=== PATIENT | female | born 1960 | race African-American/Black ===

== ENCOUNTER 2016-08-26 19:07 | Emergency (ER) | payer OTHER ==
[2016-08-26 19:17] VITALS: BMI 47.0
--- NOTE | 2016-08-26 19:33 | PDOC ---
History of Present Illness - History of Present Illness Initial Comments: 08/26/16 20:34 The patient is a 56 year old female with a past medical hx of HTN, asthma, COPD , sleep apnea who presents to the ED via EMS complaining of chronic bilateral leg pain and weakness. The patient reports she is unable to walk or move her legs. The patient states she has satellite anesthesia. She states she has been using a diaper for the past three weeks because she is unable to make it to the bathroom. The patient had an MRI here one week ago due to her leg pain and weakness. She has been staying in a detention but was discharged back home yesterday. The patient was given Percocet to take home. She presents stating she cannot live at home with these symptoms and believes she needs to be somewhere where she can have assistance. She has an appointment with her Neurologist, Dr. Davila, on Sunday. She reports back pain. She denies nausea, vomiting diarrhea, chest pain, SOB. Surgical hx: Cholecystectomy, hysterectomy, (two), left shoulder surgery Neurologist: Dr. Davila <Jacqueline Martinez - Last Filed: 08/26/16 22:04> - General History Source: Patient Exam Limitations: No Limitations <Lashon Mora - Last Filed: 08/30/16 07:30> - General Chief Complaint: Pain, Acute Stated Complaint: PAIN TO BACK & LEGS Time Seen by Provider: 08/26/16 19:14 Past History <Jacqueline Martinez - Last Filed: 08/26/16 22:04> - Past Medical History Anemia: No Asthma: Yes Cancer: No Cardiac Disorders: No CVA: No COPD: Yes CHF: No Dementia: No Diabetes: Yes GI Disorders: Yes (GERD) Disorders: No HTN: Yes Hypercholesterolemia: Yes Liver Disease: No Seizures: No Thyroid Disease: No - Surgical History Abdominal Surgery: No Appendectomy: No Cardiac Surgery: No Cholecystectomy: Yes Lung Surgery: No Neurologic Surgery: No Orthopedic Surgery: Yes (; left ankle surgery 2004 with johnny) - Psycho/Social/Smoking Cessation Hx Suicidal Ideation: No Smoking Status: Yes Smoking History: Current every day smoker Have you smoked in the past 12 months: Yes Number of Cigarettes Smoked Daily: 8 If you are a former smoker, when did you quit?: 6 months Information on smoking cessation initiated: No 'Breaking Loose' booklet given: 10/14/15 Hx Alcohol Use: No Drug/Substance Use Hx: No Substance Use Type: Alcohol, Cocaine, Marijuana Hx Substance Use Treatment: Yes (new focus, detox many years ago) <Lashon Mora - Last Filed: 08/30/16 07:30> - Past Medical History Allergies/Adverse Reactions: Allergies Allergy/AdvReac Type Severity Reaction Status Date / Time No Known Allergies Allergy Verified 08/26/16 19:13 Home Medications: Ambulatory Orders Albuterol Sulfate Inhaler - [Ventolin HFA Inhaler -] 2 inh PO Q4H PRN 01/12/14 Aripiprazole [Abilify -] 10 mg PO DAILY 01/12/14 Lamotrigine [Lamictal -] 200 mg PO DAILY 01/12/14 Montelukast Na [Singulair -] 10 mg PO HS 01/12/14 Omeprazole [Prilosec] 20 mg PO DAILY 01/12/14 Gabapentin [Neurontin] 800 mg PO QID 10/14/15 Lisinopril 10 mg PO DAILY 03/13/16 Oxycodone HCl/Acetaminophen [Percocet 10-325 mg Tablet] 1 each PO TID PRN #90 tablet MDD 3 08/09/16 Melatonin 3 mg PO HS 08/26/16 Morphine *Sr* [Ms Contin -] 15 mg PO Q12H 08/26/16 Salmeterol/Fluticasone [Advair 250Mcg/50Mcg] 1 inh PO BID 08/26/16 Review of Systems - Review of Systems Able to Perform ROS?: Yes Comments:: 08/26/16 20:34 GENERAL/CONSTITUTIONAL: No: fever, chills, loss of appetite. HEAD, EYES, EARS, NOSE AND THROAT: No: change in vision, ear pain, discharge, sore throat, throat swelling. CARDIOVASCULAR: No: chest pain, lightheadedness, palpitations, syncope RESPIRATORY: No: cough, shortness of breath, wheezing, hemoptysis, stridor. GASTROINTESTINAL: No: nausea, vomiting, abdominal cramping, diarrhea, rectal bleeding, constipation. GENITOURINARY: No: dysuria, hematuria, frequency, urgency, flank pain. MUSCULOSKELETAL: +Bilateral lower extremity weakness and pain. No: neck pain SKIN: No: lesions, pallor, rash or easy bruising. NEUROLOGIC: No: headache, vertigo, paresthesias, weakness ENDOCRINE: No: unexplained weight gain or loss HEMATOLOGIC/LYMPHATIC: No: anemia, easy bleeding, swelling nodes <Jacqueline Martinez - Last Filed: 08/26/16 22:04> *Physical Exam - Vital Signs Last Vital Signs Temp Pulse Resp BP Pulse Ox 99.0 F 72 20 129/61 96 08/26/16 19:11 08/26/16 19:11 08/26/16 19:11 08/26/16 19:11 08/26/16 19:11 - Physical Exam Comments: 08/26/16 20:35 GENERAL: +Morbidly obese. The patient is in no acute distress. HEAD: Normal with no signs of trauma. EYES: PERRLA, EOMI, sclera anicteric, conjunctiva clear. ENT: Ears normal, nares patent, oropharynx clear without exudates. Moist mucous membranes. NECK: Normal range of motion, supple without lymphadenopathy, JVD, or masses. LUNGS: Breath sounds equal, clear to auscultation bilaterally. No wheezes, and no crackles. HEART:Regular rate and rhythm, normal S1 and S2 without murmur, rub or gallop. ABDOMEN: +Obese. Soft, nontender, normoactive bowel sounds. No guarding, no rebound. EXTREMITIES:+Bilateral lower extremity weakness, motor strength bilateral ankles 1/5 , hips 2/5 . Sensation intact. No clubbing or cyanosis. No erythema. NEUROLOGICAL: Cranial nerves II through XII grossly intact. Sensation intact. Normal speech. MUSCULOSKELETAL: Back nontender to palpation, no CVA tenderness SKIN: Warm, Dry, normal turgor, no rashes or lesions noted. <Jacqueline Martinez - Last Filed: 08/26/16 22:04> - Vital Signs Last Vital Signs Temp Pulse Resp BP Pulse Ox 99.0 F 72 20 129/61 96 08/26/16 19:11 08/26/16 19:11 08/26/16 19:11 08/26/16 19:11 08/26/16 19:11 <Lashon Mora - Last Filed: 08/30/16 07:30> ED Treatment Course - LABORATORY CBC & Chemistry Diagram: 08/26/16 20:12 08/26/16 20:12 - RADIOLOGY Radiograph Interpretation: 08/26/16 22:04 EXAM DATE AND TIME: 2016-08-26 21:07:08.0 EXAM: VENOUS DUPLEX UNILATERAL No evidence for DVT bilateral lower extremities. THIS DOCUMENT HAS BEEN ELECTRONICALLY SIGNED Beata Hairston M.D. 08/26/2016 21:56 DEBRA Oliveros Please call [facility] [phone]) with questions. <Jacqueline Martinez - Last Filed: 08/26/16 22:04> - LABORATORY CBC & Chemistry Diagram: 08/26/16 20:12 08/26/16 20:12 <Lashon Mora - Last Filed: 08/30/16 07:30> Medical Decision Making - Medical Decision Making This is a 56 yo F presenting to the ER because she can not be cared for at home any longer She states that several months ago, she noted bilateral finger tingling She noted progressive and worsening back pain She was seen at an OSH where she was admitted to the hospital and then sent to the detention Pt states she has been in the detention for 3 weeks she has been unable to ambulate on examination: bilateral leg weakness weak dorsi and plantar flexion Pt can hold legs up against gravity for several seconds unable to hold right leg up against gravity hyporeflexic sensation intact MRI done 1 week ago demonstrates Myelomalacia of the spine, pt has spinal cord compression Laboratory Tests 08/26/16 08/26/16 20:12 20:12 WBC 9.2 D Hgb 12.1 Hct 35.2 Plt Count 287 Neutrophils % 53.6 Lymphocytes % 36.9 Sodium 139 Potassium 4.5 Chloride 104 Carbon Dioxide 26 BUN 12 D Creatinine 0.7 Random Glucose 124 H D AST 16 ALT 56 D Alkaline Phosphatase 141 H D B-Natriuretic Peptide 77.13 Total Protein 6.1 L Albumin 3.0 L 08/26/16 23:12 Case reviewed with Orthopedic Resident Pt accepted by Dr. Sloan Nicole Pt can be transferred to the ER for STAT MRI Case reviewed with Dr. Urias of the ER <Lashon Mora - Last Filed: 08/30/16 07:30> *DC/Admit/Observation/Transfer - Attestations Scribe Attestion: 08/26/16 20:34 Documentation prepared by Jacqueline Martinez, acting as medical delivery technician for Lashon Mora MD/DO. <Jacqueline Martinez - Last Filed: 08/26/16 22:04> - Discharge Dispostion Admit: No - Transfer to Acute Care Facility Receiving Facility: [facility] Accepting Physician:: Dr. Sloan Nicole (neurosurgery), Dr Urias (ER) <Lashon Mora - Last Filed: 08/30/16 07:30> Diagnosis at time of Disposition: Myelomalacia - Discharge Dispostion Disposition: TRANSFER ACUTE CARE/OTHER HOSP Condition at time of disposition: Stable - Referrals Referrals: Lizy Guardado MD [Primary Care Provider] -
[2016-08-26] MEDS ORDERED: HYDROmorphone HCL CARPU-JECT 1 MG/1 ML DISP.SYRIN IVPB ONE (19:49)
[2016-08-26 20:24] LABS: EOSINOPHIL 1.3 % (0-4.5); MCH 33.3 pg (25.7-33.7); MCHC 34.3 g/dl (32.0-36.0); MEAN CELL VOLUME 97.2 fl (80-96); MEAN PLT VOLUME 7.2 fl (7.5-11.1); NEUTROPHILS 53.6 % (42.8-82.8); PLATELET COUNT 287 K/MM3 (134-434); RDW 14.3 % (11.6-15.6); WHITE BLOOD COUNT 9.2 K/mm3 (4.0-10.0)
[2016-08-26] MEDS ORDERED: HYDROmorphone HCL CARPU-JECT 1 MG/1 ML DISP.SYRIN ONE (20:29)
[2016-08-26 20:47] LABS: ALK PHOS 141 U/L (45-117); ANION GAP 9 (8-16); BILIRUBIN,TOTAL 0.2 mg/dL (0.2-1.0); CALCIUM 8.5 mg/dL (8.5-10.1); CO2 26 mmol/L (21-32); COCKROFT - GAULT 197.3615; CREATININE 0.7 mg/dL (0.55-1.02); GLUCOSE,RANDOM 124 mg/dL (74-106); SGOT/AST 16 U/L (15-37); SGPT/ALT 56 U/L (12-78); TOT PROT 6.1 g/dl (6.4-8.2)
[2016-08-27 03:28] VITALS: BP 128/76; PULSE 95; TEMP 97.1
== END 2016-08-27 01:30 | disposition short-term general hospital (02) ==
LOC: JER 19:07
PROC: 3E033NZ Introduction of Analgesics, Hypnotics, Sedatives into Peripheral Vein, Percutaneous Approach (ICD-10-PCS; principal; 2016-08-26)
DX: G95.89 Other specified diseases of spinal cord (principal); I10 Essential (primary) hypertension; J44.9 Chronic obstructive pulmonary disease, unspecified; J45.909 Unspecified asthma, uncomplicated; E66.01 Morbid (severe) obesity due to excess calories; Z68.42 Body mass index [BMI] 45.0-49.9, adult
CPT/HCPCS: 36415; 80053; 83880; 85025; 93970-TC; 96374; 99284-25

== ENCOUNTER 2016-11-02 22:19 | Emergency (ER) | payer OTHER ==
[2016-11-02 22:44] VITALS: BP 154/88; PULSE 72; TEMP 98.3; BMI 59.4
--- NOTE | 2016-11-03 00:13 | PDOC ---
History of Present Illness - General Chief Complaint: Edema Stated Complaint: LEG PAIN Time Seen by Provider: 11/02/16 23:18 History Source: Patient - History of Present Illness Initial Comments: 11/03/16 01:37 Past History - Past Medical History Allergies/Adverse Reactions: Allergies Allergy/AdvReac Type Severity Reaction Status Date / Time No Known Allergies Allergy Verified 08/26/16 19:13 Home Medications: Ambulatory Orders Albuterol Sulfate Inhaler - [Ventolin HFA Inhaler -] 2 inh PO Q4H PRN 01/12/14 Aripiprazole [Abilify -] 10 mg PO DAILY 01/12/14 Lamotrigine [Lamictal -] 200 mg PO DAILY 01/12/14 Montelukast Na [Singulair -] 10 mg PO HS 01/12/14 Omeprazole [Prilosec] 20 mg PO DAILY 01/12/14 Gabapentin [Neurontin] 800 mg PO QID 10/14/15 Lisinopril 10 mg PO DAILY 03/13/16 Salmeterol/Fluticasone [Advair 250Mcg/50Mcg] 1 inh PO BID 08/26/16 Zolpidem Tartrate [Ambien] 10 mg PO HS 10/04/16 Oxycodone HCl/Acetaminophen [Endocet 7.5-325 mg Tablet] 1 each PO QID PRN #110 tablet MDD 4 11/01/16 Anemia: No Asthma: Yes Cancer: No Cardiac Disorders: No CVA: No COPD: Yes CHF: No Dementia: No Diabetes: Yes GI Disorders: Yes (GERD) Disorders: No HTN: Yes Hypercholesterolemia: Yes Liver Disease: No Seizures: No Thyroid Disease: No - Surgical History Abdominal Surgery: No Appendectomy: No Cardiac Surgery: No Cholecystectomy: Yes Lung Surgery: No Neurologic Surgery: No Orthopedic Surgery: Yes (; left ankle surgery 2004 with johnny) - Immunization History Immunization Up to Date: No - Psycho/Social/Smoking Cessation Hx Anxiety: No Suicidal Ideation: No Smoking Status: Yes Smoking History: Current every day smoker Have you smoked in the past 12 months: Yes Number of Cigarettes Smoked Daily: 24 If you are a former smoker, when did you quit?: 6 months Information on smoking cessation initiated: No 'Breaking Loose' booklet given: 10/14/15 Hx Alcohol Use: No Drug/Substance Use Hx: No Substance Use Type: Alcohol, Cocaine, Marijuana Hx Substance Use Treatment: Yes (new focus, detox many years ago) *Physical Exam - Vital Signs Last Vital Signs Temp Pulse Resp BP Pulse Ox 98.3 F 72 18 154/88 95 11/02/16 22:41 11/02/16 22:41 11/02/16 22:41 11/02/16 22:41 11/02/16 22:41 ED Treatment Course - RADIOLOGY Radiology Studies Ordered: Category Date Time Status DUPLEX VASCUL US-2LEGS [US] Stat Ultrasound 11/03/16 00:12 Ordered *DC/Admit/Observation/Transfer Diagnosis at time of Disposition: eloped - Discharge Dispostion Disposition: ELOPED - Referrals Referrals: Lizy Guardado MD [Primary Care Provider] -
== END 2016-11-03 00:19 | disposition left against medical advice (07) ==
LOC: JER 22:19
DX: Z53.21 Procedure and treatment not carried out due to patient leaving prior to being seen by health care provider (principal)
CPT/HCPCS: 99281-25

== ENCOUNTER 2017-08-02 07:02 | Day surgery (SDC) | payer OTHER ==
[2017-08-01 15:52] VITALS: BMI 58.1
[2017-08-02] MEDS ORDERED: PROPOFOL 20 ML ONE ×2 (08:06)
[2017-08-02] MEDS ORDERED: LIDOCAINE HCL/PF 2% SDV 5ML VIAL ONE (08:06)
[2017-08-02] MEDS ORDERED: GLYCOPYRROLATE 0.2 MG/1 ML VIAL ONE (08:07)
[2017-08-02 08:52] VITALS: TEMP 98.4
[2017-08-02 09:32] VITALS: BP 133/82; PULSE 75
== END 2017-08-02 09:33 | disposition home or self-care (01) ==
LOC: JASU-ENDO 07:02
PROVIDERS: ATTEND Surgery
PROC: 0DJ08ZZ Inspection of Upper Intestinal Tract, Via Natural or Artificial Opening Endoscopic (ICD-10-PCS; principal; 2017-08-02 09:00)
DX: E66.8 Other obesity (principal); Z98.84 Bariatric surgery status; I10 Essential (primary) hypertension; K21.9 Gastro-esophageal reflux disease without esophagitis; G47.30 Sleep apnea, unspecified; E11.9 Type 2 diabetes mellitus without complications

== ENCOUNTER 2019-01-27 06:34 | Day surgery (SDC) | payer OTHER ==
[2019-01-16 11:29] VITALS: BMI 62.1
[2019-01-27] MEDS ORDERED: ALBUTEROL SO4 8 GM HFA INHALER IH PRN (07:41)
[2019-01-27] MEDS ORDERED: PATIENT'S OWN MEDICATION (NON-FORMULARY) (Salmeterol/Fluticasone [Advair 250mcg/50mcg -] 1 PO PRN (07:41)
[2019-01-27] MEDS ORDERED: ALBUTEROL SO4 0.083% IH SOL 2.5 MG/3 ML VIAL.NEB. NEB PRN (07:41)
[2019-01-27] MEDS ORDERED: MONTELUKAST NA 10 MG TABLET PO SCH (22:00)
[2019-01-28] MEDS ORDERED: PATIENT'S OWN MEDICATION (NON-FORMULARY) (Salmeterol/Fluticasone [Advair 250mcg/50mcg -] 1 PO PRN (08:13)
== END 2019-01-27 08:43 | disposition home or self-care (01) ==
LOC: FASUSAT 06:34 → UNDOADMIN 06:34 → FM/S 06:34 → FASUSAT 08:43 → EDSTATUS 10:00
PROVIDERS: ATTEND Surgery
PROC: 0DV64CZ Restriction of Stomach with Extraluminal Device, Percutaneous Endoscopic Approach (ICD-10-PCS; principal; 2019-01-27)
DX: Z53.8 Procedure and treatment not carried out for other reasons (principal); E66.01 Morbid (severe) obesity due to excess calories; Z68.44 Body mass index [BMI] 60.0-69.9, adult

== ENCOUNTER 2019-05-19 14:16 | Emergency (ER) | payer OTHER ==
[2019-05-19 15:06] VITALS: TEMP 98.3; BMI 62.8
--- NOTE | 2019-05-19 15:50 | PDOC ---
History of Present Illness - General Chief Complaint: Pain Stated Complaint: PAIN AND SWELLING Time Seen by Provider: 05/19/19 15:36 History Source: Patient Exam Limitations: No Limitations - History of Present Illness Initial Comments: 05/19/19 15:46 59 yo F with a hx of COPD, functional paraplegia (needs wheelchair for ambulation), chronic back pain on management, bipolar disorder, schizophrenia, sleep apnea (on CPAP-inconsistent use), HTN, HLD, DM, lymphedema, morbid obesity , and degenerative arthritis presents to the emergency department with worsening bilateral LE edema and right hip pain for 1 day. Per the patient, she denies traumatic falls. She was recently seen by her card scraper (unknown reason) and had a recent Duplex 05/19/19 17:00 Past History - Past Medical History Allergies/Adverse Reactions: Allergies Allergy/AdvReac Type Severity Reaction Status Date / Time No Known Allergies Allergy Verified 05/19/19 15:06 Home Medications: Ambulatory Orders Albuterol Sulfate Inhaler - [Ventolin HFA Inhaler -] 2 inh PO Q4H PRN 01/12/14 Lamotrigine [Lamictal -] 200 mg PO DAILY 01/12/14 Montelukast Na [Singulair -] 10 mg PO HS 01/12/14 Salmeterol/Fluticasone [Advair 250Mcg/50Mcg -] 1 inh PO PRN PRN 08/26/16 Albuterol 0.083% Nebulizer Raven [Ventolin 0.083% Nebulizer Soln -] 1 neb NEB Q4H PRN #1 box 07/09/17 hydrOXYzine PAMOATE [Vistaril -] 50 mg PO HS 07/09/17 Aripiprazole [Abilify -] 20 mg PO DAILY 09/14/17 Omeprazole 20 mg PO DAILY 12/12/17 Bacitracin - [Bacitracin Topical Ointment -] 1 applic TP BID #1 tube 01/07/19 Calcium Carbonate/Vitamin D3 [Calcium 600 + D3 Softgel] 1 each PO DAILY #30 capsule 01/07/19 Vitamin B Complex [B Complex] 1 each PO DAILY #30 tablet 01/07/19 Vitamin E - 400 unit PO DAILY #30 capsule 01/07/19 Diclofenac Sodium [Voltaren] 2 gm TP TID PRN #3 tube 02/07/19 Ergocalciferol (Vitamin D2) [Vitamin D2] 50,000 unit PO MOFR #8 capsule Gabapentin 800 mg PO TID 02/07/19 Baclofen 20 mg PO BID PRN #60 tablet 03/10/19 Ferrous Sulfate 325 mg PO DAILY #30 tablet 05/09/19 Oxycodone HCl/Acetaminophen [Endocet 10-325 mg Tablet] 1 each PO TID PRN #90 tablet MDD 3 05/09/19 Furosemide 40 mg PO DAILY #14 tablet 05/19/19 Anemia: No Asthma: Yes Cancer: No Cardiac Disorders: No CVA: No COPD: Yes CHF: No Dementia: No Diabetes: Yes (BORDERLINE) GI Disorders: Yes (GERD) Disorders: No HTN: Yes Hypercholesterolemia: Yes Liver Disease: No Seizures: No Thyroid Disease: No - Surgical History Abdominal Surgery: No Appendectomy: No Cardiac Surgery: No Cholecystectomy: Yes Lung Surgery: No Neurologic Surgery: No Orthopedic Surgery: Yes (; left ankle surgery 2004 with johnny; left shoulder 2015 ) - Immunization History Immunization Up to Date: No - Psycho Social/Smoking Cessation Hx Smoking Status: Yes Smoking History: Current every day smoker Have you smoked in the past 12 months: Yes Number of Cigarettes Smoked Daily: 20 If you are a former smoker, when did you quit?: 6 months Information on smoking cessation initiated: No 'Breaking Loose' booklet given: 08/02/17 Hx Alcohol Use: No Drug/Substance Use Hx: Yes (Marijuana daily) Substance Use Type: Alcohol, Cocaine, Marijuana Hx Substance Use Treatment: Yes (new focus, detox many years ago) *Physical Exam - Vital Signs Last Vital Signs Temp Pulse Resp BP Pulse Ox 98.3 F 75 16 136/78 98 05/19/19 15:03 05/19/19 15:03 05/19/19 15:03 05/19/19 15:03 05/19/19 15:03 ED Treatment Course - LABORATORY CBC & Chemistry Diagram: 05/19/19 16:15 05/19/19 16:15 Discharge - Discharge Information Problems reviewed: Yes Clinical Impression/Diagnosis: Functional quadriplegia, Lymphedema Disposition: HOME - Admission No - Additional Discharge Information Prescriptions: Furosemide 40 mg PO DAILY #14 tablet - Follow up/Referral Referrals: Edy Sanford MD [Non Staff, Medical] - - Patient Discharge Instructions Patient Printed Discharge Instructions: DI for Lymphedema Additional Instructions: You were seen in the emergency department for your increased swelling of the legs. It was determined that you need diuresis, which means to remove water from your legs. Please take the medications as prescribed. You need to follow up with Dr. Sanford within 3 days after discharge for follow up care and management. Please return to the emergency department if you have worsening symptoms or new concerning symptoms such as weakness, worsening mentation, palpitations. Please see your primary medical doctor, it is VITAL. Print Language: ICELANDIC - Post Discharge Activity
[2019-05-19] MEDS ORDERED: morphine SULFATE 4 MG/ML VIAL IVPUSH ONE (16:17)
[2019-05-19] MEDS ORDERED: morphine SULFATE 4 MG/ML VIAL ONE (16:30)
[2019-05-19 16:39] LABS: BASO % 0.9 % (0-2.0); EOS % 2.4 % (0-4.5); HEMATOCRIT 41.3 % (32.4-45.2); HEMOGLOBIN 13.8 GM/dL (10.7-15.3); LYMPH % 42.1 % (8-40); MCHC 33.4 g/dl (32.0-36.0); MEAN PLT VOLUME 8.1 fl (7.5-11.1); MONO % 6.5 % (3.8-10.2); NEUT % 48.1 % (42.8-82.8); PLATELET COUNT 359 K/MM3 (134-434); RBC 4.17 M/mm3 (3.60-5.2); WHITE BLOOD COUNT 5.7 K/mm3 (4.0-10.0)
[2019-05-19 17:05] LABS: INR 1.08 (0.83-1.09); PROTHROMBIN TIME (PATIENT) 12.7 SEC (9.7-13.0)
[2019-05-19 17:06] LABS: ALBUMIN 3.5 g/dl (3.4-5.0); BILIRUBIN,TOTAL 0.2 mg/dL (0.2-1); BLOOD UREA NITROGEN 7.6 mg/dL (7-18); CALCIUM 9.4 mg/dL (8.5-10.1); CREATININE 0.6 mg/dL (0.55-1.3); POTASSIUM 4.1 mmol/L (3.5-5.1); TOT PROT 7.4 g/dl (6.4-8.2)
--- NOTE | 2019-05-19 17:18 | PDOC ---
Documentation entered by Joe Rocha SCRIBE, acting as scribe for Jorge Luis Liu MD. Jorge Luis Liu MD: This documentation has been prepared by the Aj salazar Xhesika, SCRIBE, under my direction and personally reviewed by me in its entirety. I confirm that the documentation accurately reflects all work, treatment, procedures, and medical decision making performed by me. Attending Attestation - Resident Resident Name: Brent Olmedo - ED Attending Attestation I have performed the following: I have examined & evaluated the patient, The case was reviewed & discussed with the resident, I agree w/resident's findings & plan, Exceptions are as noted - HPI HPI: 05/19/19 16:32 The patient is a year old female with a PMH of COPD, functional paraplegia ( needs wheelchair for ambulation), chronic back pain, bipolar disorder, schizophrenia, sleep apnea (on CPAP-inconsistent use), HTN, HLD, DM, lymphedema , morbid obesity, and degenerative arthritis who presents to the ED for 1 year of bilateral LE edema. Pt states she saw her PCP last week who told her she needed to come to the ED for further evaluation. Pt denies being on water pills. Pt states she is bed bound and can not ambulate. The patient denies chest pain, shortness of breath, and dizziness. Denies fever , chills, cough, nausea, vomiting, and constipation. Denies dysuria, frequency, urgency and hematuria. Allergy: NKDA Social: Denies alcohol, cigarette or drug use. - Physicial Exam PE: 05/19/19 16:32 Vitals: Triage Vital signs reviewed General Appearance: no acute distress, +obese Chest Wall: Nontender Cardiac: Regular rate and rhythm, no murmurs, no rubs, no gallops, Lungs: Clear to auscultation bilateral, good air movement bilaterally, Abdomen: Soft. +swollen abdomen. Extremities: (+) 3+ pitting edema bilaterally of ankles, legs and thighs. Skin: Warm and dry, no rashes or lesions, no petechiae Psych: normal mood, normal affect - Medical Decision Making 05/19/19 17:19 Morbid obesity with worsening lymphedema worsening hip pain unable to transfer Patient require admission for aggressive diuresis with careful electrolyte monitoring Case management and physical therapy consultation for reassessment of home situation and possible placement given unsafe care at home
[2019-05-19 21:24] VITALS: BP 155/90; PULSE 79
--- NOTE | 2019-05-20 12:41 | EKG ---
Test Reason : Blood Pressure : / mmHG Vent. Rate : 069 BPM Atrial Rate : 069 BPM P-R Int : 154 ms QRS Dur : 078 ms QT Int : 380 ms P-R-T Axes : 041 031 030 degrees QTc Int : 407 ms SINUS RHYTHM WITH MARKED SINUS ARRHYTHMIA LOW VOLTAGE QRS SEPTAL INFARCT , AGE UNDETERMINED ABNORMAL ECG Confirmed by MD SHAJI, RICHMOND ([id number]) on 05/20/2019 12:40:48 PM Referred By: Confirmed By:RICHMOND GIRARD MD
== END 2019-05-19 21:24 | disposition home or self-care (01) ==
LOC: SUPCPDRO 14:16 → JER 14:16
PROC: 3E033NZ Introduction of Analgesics, Hypnotics, Sedatives into Peripheral Vein, Percutaneous Approach (ICD-10-PCS; principal; 2019-05-19)
DX: I89.0 Lymphedema, not elsewhere classified (principal); R53.2 Functional quadriplegia; Z99.3 Dependence on wheelchair; I10 Essential (primary) hypertension; E11.9 Type 2 diabetes mellitus without complications; E78.5 Hyperlipidemia, unspecified; J44.9 Chronic obstructive pulmonary disease, unspecified; G47.39 Other sleep apnea; F31.9 Bipolar disorder, unspecified; F20.9 Schizophrenia, unspecified; M54.89 Other dorsalgia; G89.29 Other chronic pain; M19.90 Unspecified osteoarthritis, unspecified site; E66.01 Morbid (severe) obesity due to excess calories; Z68.44 Body mass index [BMI] 60.0-69.9, adult
CPT/HCPCS: 36415; 71045-TC-FY; 80053; 82550; 82553; 83880; 84484; 84703; 85025; 85610; 93005; 93010; 93970-TC; 96374; 99283-25

== ENCOUNTER 2020-02-10 19:47 | Inpatient (IN) | payer OTHER ==
--- OUTSIDE RECORDS SUMMARY | 2020-02-10 20:30 | XMS ---
:1960 Author Organization [facility] Care Team Providers Name Role Phone NISHI STOCKTON Unavailable Unavailable Mark Unavailable [phone] SANDRA MARTINEZ Unavailable Unavailable ED STAFF PHYSICIAN Unavailable Unavailable BYRON AVERY Unavailable Unavailable DANIEL AKINO Unavailable Unavailable HHCCC Unavailable Unavailable AurMayank goodman DPM Unavailable Unavailable AurMayank goodman DPM Unavailable Unavailable AurSyd goodmanen DPM Unavailable Unavailable Byron MD Unavailable Unavailable Byron MD Unavailable Unavailable Rosalba-Pickett Unavailable [phone] Rosalba-Pickett Unavailable [phone] Garretovic Unavailable [phone] Sandra Unavailable [phone] Re-disclosure Warning The records that you are about to access may contain information from federally- assisted alcohol or drug abuse programs. If such information is present, then the following federally mandated warning applies: This information has been disclosed to you from records protected by federal confidentiality rules (42 CFR part 2). The federal rules prohibit you from making any further disclosure of this information unless further disclosure is expressly permitted by the written consent of the person to whom it pertains or as otherwise permitted by 42 CFR part 2. A general authorization for the release of medical or other information is NOT sufficient for this purpose. The Federal rules restrict any use of the information to criminally investigate or prosecute any alcohol or drug abuse patient.The records that you are about to access may contain highly sensitive health information, the redisclosure of which is protected by Article 27-F of the [facility] Public Health law. If you continue you may haveaccess to information: Regarding HIV / AIDS; Provided by facilities licensed or operated by the [facility] Office of Mental Health; or Provided by the [facility] Office for People With Developmental Disabilities. If such information is present, then the following [facility] mandated warning applies: This information has been disclosed to you from confidential records which are protected by state law. State law prohibits you from making any further disclosure of this information without the specific written consent of the person to whom it pertains, or as otherwise permitted by law. Any unauthorized further disclosure in violation of state law may result in a fine or halfway sentence or both. A general authorization for the release of medical or other information is NOT sufficient authorization for further disclosure. Allergies and Adverse Reactions Type Description Substance Reaction Status Data Source(s ) Food allergy No Known Food No Known Food [facility] Drug allergy No Known Drug No Known Drug [facility] No Known Allergies No Known Allergies No Known Allergies eCW3 ([facility]) No Known Allergies No Known Allergies No Known Allergies eCW3 ([facility]) No Known Allergies No Known Allergies No Known Allergies eCW3 ([facility]) No Known Allergies No Known Allergies No Known Allergies eCW3 ([facility]) No Known Allergies No Known Allergies No Known Allergies eCW3 ([facility]) Propensity to Propensity to Propensity to NEXTG EN ([facility] adverse reactions adverse reactions adverse reactions [facility] (disorder) (disorder) (disorder) [place]) No Known Allergies No Known Allergies No Known Allergies eCW3 ([facility]) No Known Allergies No Known Allergies No Known Allergies eCW3 ([facility]) No Known Allergies No Known Allergies No Known Allergies eCW3 ([facility]) No Known Allergies No Known Allergies No Known Allergies eCW3 ([facility]) No Known Allergies No Known Allergies No Known Allergies eCW3 ([facility]) No Known Allergies No Known Allergies No Known Allergies eCW3 ([facility]) No Known Allergies No Known Allergies No Known Allergies eCW3 ([facility]) No Known Allergies No Known Allergies No Known Allergies eCW3 ([facility]) No Known Allergies No Known Allergies No Known Allergies eCW3 ([facility]) No Known Allergies No Known Allergies No Known Allergies eCW3 ([facility]) No Known Allergies No Known Allergies No Known Allergies eCW3 ([facility]) No Known Allergies No Known Allergies No Known Allergies eCW3 ([facility]) No Known Allergies No Known Allergies No Known Allergies eCW3 ([facility]) No Known Allergies No Known Allergies No Known Allergies eCW3 ([facility]) No Known Allergies No Known Allergies No Known Allergies eCW3 ([facility]) No Known Allergies No Known Allergies No Known Allergies eCW3 ([facility]) No Known Allergies No Known Allergies No Known Allergies eCW3 ([facility]) No Known Allergies No Known Allergies No Known Allergies eCW3 ([facility]) No Information No Information No Information eC W2 ([facility]) No Information No Information No Information eC W2 ([facility]) No Information No Information No Information eC W2 ([facility]) No Information No Information No Information eC W2 ([facility]) No Known Allergies No Known Allergies No Known Allergies eCW3 ([facility]) No Known Allergies No Known Allergies No known allergies eCW3 ([facility]) No Known Allergies No Known Allergies No known allergies eCW3 ([facility]) Encounters Encounter Providers Location Date Indications Data Source(s ) Outpatient Attender: HR9 02/09/[address] [facility] ([facility] 05:03:23 PM Health [facility] EDT [facility]) Patient admitted. OutpatientOFFICE/OUTPATIENT Attender: Michelle Mental 12/17/2019 NEXTGEN VISIT, [facility] 10:18:00 AM ([facility] 12/17/2019 Medical 10:18:00 AM [place]) EDT Outpatient Attender: HRHC9 12/06/2019 [facility] 12:20:08 PM [facility] Patient admitted. OutpatientOFFICE/OUTPATIENT Attender: Mental 11/20/2019 NEXTGEN VISIT, [facility] 12:13:00 PM ([facility] 11/20/2019 Medical 12:13:00 PM Center) EDT Attender: Michelle Mental 09/10/2019 [facility] 12:46:00 PM ([facility] 09/10/2019 Medical 12:46:00 PM Center) EDT Attender: Michelle Mental 08/01/2019 [facility] 11:03:00 AM ([facility] 08/01/2019 Medical 11:03:00 AM Center) EDT Outpatient 07/31/2019 [facility] 12:57:00 PM [facility] Outpatient Attender: Junior Kaufman 07/31/2019 [facility] 12:[facility]00 PM [facility] DPMAdmitter: [facility] DPMReferrer: Junior Spaulding DPM OutpatientOFFICE/OUTPATIENT Attender: [facility] 07/31/2019 [facility] VISIT, [facility] 12:54:00 PM ([facility] 07/31/2019 Medical 12:54:00 PM Center) EDT Outpatient 07/31/2019 [facility] 12:00:00 AM [facility] Outpatient Attender: HRHC9 07/25/[address] [facility] 06:47:49 AM ([facility]) Patient admitted. OutpatientOFFICE/OUTPATIENT Attender: Mental 06/04/2019 [facility] VISIT, [facility] 01:56:00 PM ([facility] 06/04/2019 Medical 01:56:00 PM Center) EST Outpatient Attender: 05/08/2019 [facility] MICHELLE 07:54:00 AM [facility] MICKIEAAdmitter: [place] MICHELLE SANDRA MICHELLE Attender: Mental 05/08/2019 [facility] 07:54:00 AM ([facility] 05/08/2019 Medical 07:54:00 AM Center) EST 05/08/2019 [facility] 12:00:00 AM [facility] Medical 02/12/2019 [place] 12:00:00 AM EDT OutpatientOFFICE/OUTPATIENT Attender: Mental 03/24/2019 NEXTGEN VISIT, EST [facility] 01:41:00 PM ([facility] 03/24/2019 Medical 01:41:00 PM Center) EST (NBillable) [place] 03/18/2019 eCW3 Lab/Outreach/Nursing/Care Primary 12:00:00 AM ([facility] EST - [place] [facility]28 03/18/2019 Health 12:00:00 AM Care) EST Emergency Attender: SHEA EVANGELISTA 03/14/2019 [facility] 02:47:00 PM Patria Ocampoender: EST - Medical STAFF ED STAFF 03/15/2019 Center PHYSICIANAdmitt 01:23:00 PM er: STAFF ED EST STAFF PHYSICIAN Patient discharged. Outpatient [facility] 03/10/2019 eCW3 ([facility] 12:00:[address] [facility] 03/10/2019 Care) 12:00:00 AM EST (NBillable) [facility] 03/10/2019 eCW3 ([facility]reach/[facility]ursi [facility] A28 12:00:00 AM [facility] - [facility] ng/Care Management 03/10/2019 Care) 12:00:00 AM EST (NBillable) [facility] 02/20/2019 eCW3 ([facility] A28 12:00:00 AM EDT - [facility]/Care Management 02/20/2019 Care) 12:00:00 AM EDT Attender: [facility] 02/17/2019 NEXTG EN ([facility] 03:36:00 PM EDT [facility] 02/17/2019 Medical 03:36:00 PM EDT Center) Inpatient Attender: MAHIN EVANGELISTA 02/11/2019 [facility] ALMODOVAR 01:04:00 PM EDT - Medical Center ROBERTAdmitter: 02/12/2019 MAHIN ALMODOVAR 02:30:00 AM EDT ROBERTReferrer: MAHIN STOCKTON Patient discharged. (NBillable) [facility] 02/10/2019 eCW3 ([facility]Nursing[facility] 12:00:00 AM [facility] EDT - Care) 02/10/2019 12:00:00 AM EDT (NBillable) [facility] 01/27/2019 eCW3 ([facility]Nursing[facility] 12:00:00 AM [facility] EDT - Care) 01/27/2019 12:00:00 AM EDT OutpatientOFFICE/OUTPATIENT Attender: Mental Health 01/20/2019 NEXTGEN VISIT, DEBRA Matthews [facility] Clinic 10:12:00 AM ([facility] 01/20/2019 Medical 10:12:00 AM Center) EDT (NBillable) [facility] 01/14/2019 eCW3 ([facility]Nurs[facility] 12:00:00 AM [facility] EDT - Care) 01/14/2019 12:00:00 AM EDT Outpatient [facility] 12/26/2018 eCW3 ([facility] 12:00:00 AM [facility]T - Care) 12/26/2018 12:00:00 AM EDT (NBillable) [facility] 12/24/2018 eCW3 ([facility] 12:00:00 AM [facility] EDT - Care) 12/24/2018 12:00:00 AM EDT (NBillable) [facility] 12/19/2018 eCW3 ([facility]Nursing[facility] 12:00:00 AM [facility] EDT - Care) 12/19/2018 12:00:00 AM EDT Established-Intermediate [facility] 12/05/2018 eCW3 ([facility] 12:00:00 AM [facility] EDT - Care) 12/05/2018 12:00:00 AM EDT OutpatientOFFICE/OUTPATIENT Attender: Mental Health 12/03/2018 NEXTGEN VISIT, DEBRA [facility] 09:34:00 AM ([facility] 12/03/2018 Medical 09:34:00 AM Center) EDT Outpatient [facility] 11/18/2018 eCW3 ([facility] 12:00:00 AM [facility]T - Care) 11/18/2018 12:00:00 AM EDT (NBillable) [facility] 11/15/2018 eCW3 ([facility] 12:00:00 AM [facility] EDT - Care) 11/15/2018 12:00:00 AM EDT Outpatient [facility] 10/24/2018 eCW3 ([facility] 12:00:00 AM [facility] EDT - Care) 10/24/2018 12:00:00 AM EDT OutpatientOFFICE/OUTPATIENT Attender: Mental Health 10/23/2018 NEXTGEN VISIT, EST [facility] 10:59:00 AM ([facility] 10/23/2018 Medical 10:59:00 AM Center) EDT Attender: Mental Health 10/11/2018 [facility] 10:43:00 AM ([facility] 10/11/2018 Medical 10:43:00 AM Center) EDT (NBillable) [facility] 10/07/2018 eCW3 ([facility] son Lab/Outreach/Nursing/Care [facility] A[facility] 12:00:00 AM [facility] EDT - Care) 10/07/2018 12:00:00 AM EDT Subsequent Individual Medical [facility] 09/24/2018 eCW3 ([facility] 12:00:00 AM [facility] EDT - Care) 09/24/2018 12:00:00 AM EDT Outpatient [facility] 09/23/2018 eCW3 ([facility] 12:00:00 AM [facility] EDT - Care) 09/23/2018 12:00:00 AM EDT Subsequent Individual [facility] 08/27/2018 eCW3 ([facility] 12:00:00 AM [facility] EDT - Care) 08/27/2018 12:00:00 AM EDT Outpatient [facility] 08/26/2018 eCW3 ([facility] A28 12:00:00 AM [facility] EDT - Care) 08/26/2018 12:00:00 AM EDT OutpatientOFFICE/OUTPATIENT Attender: Mental Health 08/16/2018 NEXTGEN VISIT, EST [facility] 09:58:00 AM ([facility] 08/16/2018 Medical 09:58:00 AM Center) EDT (NBillable) [facility] 08/09/2018 eCW3 ([facility] son Lab/Outreach/Nursing/Care [facility] A[facility] 12:00:00 AM [facility] EDT - Care) 08/09/2018 12:00:00 AM EDT Outpatient [facility] 08/01/2018 eCW3 ([facility] 12:00:00 AM [facility] EDT - Care) 08/01/2018 12:00:00 AM EDT Outpatient 07/30/2018 [facility] 12:27:09 PM ([facility] Health [facility]) Medical Nutrition Therapy; [facility] 07/30/2018 eCW3 ([place] [facility] 12:00:00 AM [facility] EDT - Care) 07/30/2018 12:00:00 AM EDT Outpatient 07/26/2018 [facility] 08:04:00 AM ([facility]) (NBillable) [facility] 07/16/2018 eCW3 ([facility]Nurs[facility] 12:00:00 AM [facility] EDT - Care) 07/16/2018 12:00:00 AM EDT Outpatient [facility] 07/04/2018 eCW3 ([facility] 12:00:00 AM [facility] EST - Care) 07/04/2018 12:00:00 AM EST (NBillable) [facility] 07/01/2018 eCW3 ([facility]Nursing[facility] 12:00:00 AM [facility] EST - Care) 07/01/2018 12:00:00 AM EST OutpatientOFFICE/OUTPATIENT Attender: Mental Health 06/21/2018 NEXTGEN MARIAH, EST [facility] 01:17:00 PM ([facility] 06/21/2018 Medical 01:17:00 PM Center) EST Outpatient Attender: H 06/21/2018 [facility] AVERY MATTHEWS 10:05:00 AM Patria Rojasender: EST Medical [facility] SANDRA YUSUFdmitter : AVERY VARELA (EDENillable) [facility] 06/14/2018 eCW3 ([facility] 12:00:00 AM [facility] EST - Care) 06/14/2018 12:00:00 AM EST OutpatientOFFICE/OUTPATIENT Attender: Mental Health 04/19/2018 NEXTGEN VISIT, EST [facility] 09:33:00 AM ([facility] 04/19/2018 Medical 09:33:00 AM Center) EST [facility] 04/04/2018 eCW2 ([place] [facility] 12:00:00 AM [facility] EST Care) [facility] 04/04/2018 eCW2 ([place] [facility] 12:00:00 AM [facility] EST Care) [facility] 03/21/2018 eCW2 ([place] [facility] 12:00:00 AM [facility]) [facility] 03/21/2018 eCW2 ([place] [facility] 12:00:00 AM [facility] EST Care) [facility] 03/20/2018 eCW2 ([place] [facility] 12:00:00 AM [facility] EST Care) [facility] 03/14/2018 eCW2 ([place] [facility] 12:00:00 AM [facility] EST Care) [facility] 03/11/2018 eCW2 ([place] [facility] 12:00:00 AM [facility] EST Care) [facility] 03/04/2018 eCW2 ([place] [facility] 12:00:00 AM [facility] ED[facility] Care) [facility] 02/21/2018 eCW2 ([place] [facility] 12:00:00 AM [facility] EDT Care) [facility] 02/21/2018 eCW2 ([place] [facility] 12:00:00 AM [facility] EDT Care) [facility] 02/15/2018 eCW2 ([place] [facility] 12:00:00 AM [facility] EDT Care) [facility] 02/15/2018 eCW2 ([place] [facility] 12:00:00 AM [facility] ED[facility] Care) [facility] 02/06/2018 eCW2 ([place] [facility] 12:00:00 AM [facility] EDT Care) [facility] 02/06/2018 eCW2 ([place] [facility] 12:00:00 AM [facility] EDT Care) [facility] 02/06/2018 eCW2 ([place] [facility] 12:00:00 AM [facility] EDT Care) [facility] 02/04/2018 eCW2 ([place] [facility] 12:00:00 AM [facility] EDT Care) [facility] 01/31/2018 eCW2 ([place] [facility] 12:00:00 AM [facility] EDT Care) [facility] 01/31/2018 eCW2 ([place] [facility] 12:00:00 AM [facility] EDT Care) [facility] 01/15/2018 eCW2 ([place] [facility] 12:00:00 AM [facility] EDT Care) [facility] 01/08/2018 eCW2 ([place] [facility] 12:00:00 AM [facility] EDT Care) [facility] 12/13/2017 eCW2 ([place] [facility] 12:00:00 AM [facility] EDT Care) [facility] 12/13/2017 eCW2 ([place] [facility] 12:00:00 AM [facility] EDT Care) [facility] 12/06/2017 eCW2 ([place] [facility] 12:00:00 AM [facility] EDT Care) [facility] 12/03/2017 eCW2 ([place] [facility] 12:00:00 AM [facility] EDT Care) [facility] 11/28/2017 eCW2 ([place] [facility] 12:00:00 AM [facility] EDT Care) [facility] 11/23/2017 eCW2 ([place] [facility] 12:00:00 AM [facility] EDT Care) [facility] 11/16/2017 eCW2 ([place] [facility] 12:00:00 AM [facility] EDT Care) [facility] 10/31/2017 eCW2 ([place] [facility] 12:00:00 AM [facility] EDT Care) [facility] 10/08/2017 eCW2 ([place] [facility] 12:00:00 AM [facility] EDT Care) [facility] 10/04/2017 eCW2 ([place] [facility] 12:00:00 AM [facility] EDT Care) [facility] 10/03/2017 eCW2 ([place] [facility] 12:00:00 AM [facility] EDT Care) [facility] 10/02/2017 eCW2 ([place] [facility] 12:00:00 AM [facility] EDT Care) [facility] 09/17/2017 eCW2 ([place] [facility] 12:00:00 AM [facility] EDT Care) [facility] 09/11/2017 eCW2 ([place] [facility] 12:00:00 AM [facility] EDT Care) [facility] 08/24/2017 eCW2 ([place] [facility] 12:00:00 AM [facility] EDT Care) [facility] 08/24/2017 eCW2 ([place] [facility] 12:00:00 AM [facility] EDT Care) [facility] 08/10/2017 eCW2 ([place] [facility] 12:00:00 AM [facility] EDT Care) [facility] 08/09/2017 eCW2 ([place] [facility] 12:00:00 AM [facility] EDT Care) [facility] 08/08/2017 eCW2 ([place] [facility] 12:00:00 AM [facility] EDT Care) [facility] 08/02/2017 eCW2 ([place] [facility] 12:00:00 AM [facility] EDT Care) [facility] 08/02/2017 eCW2 ([place] [facility] 12:00:00 AM [facility] EDT Care) [facility] 07/27/2017 eCW2 ([place] [facility] 12:00:00 AM [facility] EDT Care) [facility] 07/23/2017 eCW2 ([place] [facility] 12:00:00 AM [facility] EDT Care) [facility] 07/20/2017 eCW2 ([place] [facility] 12:00:00 AM [facility] EDT Care) [facility] 07/10/2017 eCW2 ([place] [facility] 12:00:00 AM [facility] EST Care) [facility] 07/10/2017 eCW2 ([place] [facility] 12:00:00 AM [facility] EST Care) [facility] 07/10/2017 eCW2 ([place] [facility] 12:00:00 AM [facility] EST Care) [facility] 07/09/2017 eCW2 ([place] [facility] 12:00:00 AM [facility] EST Care) [facility] 07/09/2017 eCW2 ([place] [facility] 12:00:00 AM [facility] EST Care) [facility] 07/05/2017 eCW2 ([place] [facility] 12:00:00 AM [facility] Care[facility] 07/05/2017 eCW2 ([place] [facility] 12:00:00 AM [facility] EST Care) [facility] 07/02/2017 eCW2 ([place] [facility] 12:00:00 AM [facility] EST Care) [facility] 06/26/2017 eCW2 ([place] [facility] 12:00:00 AM [facility] EST Care) [facility] 06/04/2017 eCW2 ([place] [facility] 12:00:00 AM [facility] EST Care) [facility] 06/01/2017 eCW2 ([facility] [facility] 12:00:00 AM [facility] EST Care) [facility] 05/28/2017 eCW2 ([place] [facility] 12:00:00 AM [facility] EST Care) [facility] 05/22/2017 eCW2 ([place] [facility] 12:00:00 AM [facility] EST Care) [facility] 05/15/2017 eCW2 ([place] [facility] 12:00:00 AM [facility] EST Care) [facility] 05/15/2017 eCW2 ([place] [facility] 12:00:00 AM [facility] EST Care) [facility] 05/01/2017 eCW2 ([place] [facility] 12:00:00 AM [facility] EST Care) [facility] 04/23/2017 eCW2 ([place] [facility] 12:00:00 AM [facility] EST Care) [facility] 04/18/2017 eCW2 ([place] [facility] 12:00:00 AM [facility] EST Care) [facility] 04/18/2017 eCW2 ([place] [facility] 12:00:00 AM [facility] EST Care) [facility] 04/17/2017 eCW2 ([place] [facility] 12:00:00 AM [facility] EST Care) [facility] 04/04/2017 eCW2 ([place] [facility] 12:00:00 AM [facility] EST Care) [facility] 04/02/2017 eCW2 ([place] [facility] 12:00:00 AM [facility] EST Care) [facility] 03/28/2017 eCW2 ([place] [facility] 12:00:00 AM [facility] EST Care) [facility] 03/27/2017 eCW2 ([place] [facility] 12:00:00 AM [facility] EST Care) [facility] 03/21/2017 eCW2 ([place] [facility] 12:00:00 AM [facility] EST Care) [facility] 03/15/2017 eCW2 ([place] [facility] 12:00:00 AM [facility] EST Care) [facility] 03/14/2017 eCW2 ([place] [facility] 12:00:00 AM [facility] EST Care) [facility] 02/23/2017 eCW2 (Tejada Shellabarger 12:00:00 AM [facility] EDT Care) [facility] 02/23/2017 eCW2 (Tejada Shellabarger 12:00:00 AM [facility] EDT Care) [facility] 02/23/2017 eCW2 (Tejada Shellabarger 12:00:00 AM [facility] EDT Care) [facility] 02/02/2017 eCW2 (Tejada Shellabarger 12:00:00 AM [facility] EDT Care) [facility] 01/23/2017 eCW2 (Tejada Shellabarger 12:00:00 AM [facility] EDT Care) [facility] 01/19/2017 eCW2 (Tejada Shellabarger 12:00:00 AM [facility] EDT Care) [facility] 01/15/2017 eCW2 (Tejada Shellabarger 12:00:00 AM [facility] EDT Care) [facility] 01/09/2017 eCW2 (Tejada Shellabarger 12:00:00 AM [facility] EDT Care) [facility] 12/20/2016 eCW2 (Tejada Shellabarger 12:00:00 AM [facility] EDT Care) [facility] 12/19/2016 eCW2 (Tejada Shellabarger 12:00:00 AM [facility] EDT Care) [facility] 12/11/2016 eCW2 (Tejada Shellabarger 12:00:00 AM [facility] EDT Care) [facility] 12/11/2016 eCW2 (Tejada Shellabarger 12:00:00 AM [facility] EDT Care) [facility] 12/07/2016 eCW2 (Tejada Shellabarger 12:00:00 AM [facility] EDT Care) [facility] 11/30/2016 eCW2 (Tejada Shellabarger 12:00:00 AM [facility] EDT Care) [facility] 11/29/2016 eCW2 (Tejada Shellabarger 12:00:00 AM [facility] EDT Care) [facility] 11/29/2016 eCW2 (Tejada Shellabarger 12:00:00 AM [facility] EDT Care) [facility] 11/29/2016 eCW2 (Tejada Shellabarger 12:00:00 AM [facility] EDT Care) [facility] 11/24/2016 eCW2 (Tejada Shellabarger 12:00:00 AM [facility] EDT Care) [facility] 11/22/2016 eCW2 (Tejada Shellabarger 12:00:00 AM [facility] EDT Care) [facility] 11/22/2016 eCW2 (Tejada Shellabarger 12:00:00 AM [facility] EDT Care) [facility] 11/22/2016 eCW2 (Tejada Shellabarger 12:00:00 AM [facility] EDT Care) [facility] 11/10/2016 eCW2 (Tejada Shellabarger 12:00:00 AM [facility] EDT Care) [facility] 10/31/2016 eCW2 (Tejada Shellabarger 12:00:00 AM [facility] EDT Care) [facility] 10/26/2016 eCW2 (Tejada Shellabarger 12:00:00 AM [facility] EDT Care) [facility] 10/25/2016 eCW2 (Tejada Shellabarger 12:00:00 AM [facility] EDT Care) [facility] 10/11/2016 eCW2 (Tejada Shellabarger 12:00:00 AM [facility] EDT Care) [facility] 10/04/2016 eCW2 (Tejada Shellabarger 12:00:00 AM [facility] EDT Care) [facility] 10/04/2016 eCW2 (Tejada Shellabarger 12:00:00 AM [facility] EDT Care) [facility] 09/29/2016 eCW2 (Tejada Shellabarger 12:00:00 AM [facility] EDT Care) [facility] 09/22/2016 eCW2 (Tejada Shellabarger 12:00:00 AM [facility] EDT Care) [facility] 09/05/2016 eCW2 (Tejada Shellabarger 12:00:00 AM [facility] EDT Care) [facility] 09/04/2016 eCW2 (Tejada Shellabarger 12:00:00 AM [facility] EDT Care) [facility] 08/28/2016 eCW2 (Tejada Shellabarger 12:00:00 AM [facility] EDT Care) [facility] 08/28/2016 eCW2 (Tejada Shellabarger 12:00:00 AM [facility] EDT Care) [facility] 08/15/2016 eCW2 (Tejada Shellabarger 12:00:00 AM [facility] EDT Care) [facility] 08/07/2016 eCW2 (Tejada Shellabarger 12:00:00 AM [facility] EDT Care) [facility] 08/04/2016 eCW2 (Tejada Shellabarger 12:00:00 AM [facility] EDT Care) [facility] 08/04/2016 eCW2 (Tejada Shellabarger 12:00:00 AM [facility] EDT Care) [facility] 08/02/2016 eCW2 (Tejada Shellabarger 12:00:00 AM [facility] EDT Care) [facility] 08/02/2016 eCW2 (Tejada Shellabarger 12:00:00 AM [facility] EDT Care) [facility] 07/31/2016 eCW2 (Tejada Shellabarger 12:00:00 AM [facility] EDT Care) [facility] 07/28/2016 eCW2 (Tejada Shellabarger 12:00:00 AM [facility] EDT Care) [facility] 07/28/2016 eCW2 (Tejada Shellabarger 12:00:00 AM [facility] EDT Care) [facility] 07/27/2016 eCW2 (Tejada Shellabarger 12:00:00 AM [facility] EDT Care) [facility] 07/27/2016 eCW2 (Tejada Shellabarger 12:00:00 AM [facility] EDT Care) [facility] 07/20/2016 eCW2 (Tejada Shellabarger 12:00:00 AM [facility] EDT Care) [facility] 07/20/2016 eCW2 (Tejada Shellabarger 12:00:00 AM [facility] EDT Care) [facility] 07/17/2016 eCW2 (Tejada Shellabarger 12:00:00 AM [facility] EDT Care) [facility] 07/12/2016 eCW2 (Tejada Shellabarger 12:00:00 AM [facility] EST Care) [facility] 07/11/2016 eCW2 (Tejada Shellabarger 12:00:00 AM [facility] EST Care) [facility] 07/10/2016 eCW2 (Tejada Shellabarger 12:00:00 AM [facility] EST Care) [facility] 07/10/2016 eCW2 (Tejada Shellabarger 12:00:00 AM [facility] EST Care) [facility] 07/10/2016 eCW2 (Tejada Shellabarger 12:00:00 AM [facility] EST Care) [facility] 07/04/2016 eCW2 (Tejada Shellabarger 12:00:00 AM [facility] EST Care) [facility] 06/29/2016 eCW2 (Tejada Shellabarger 12:00:00 AM [facility] EST Care) [facility] 06/29/2016 eCW2 (Tejada Shellabarger 12:00:00 AM [facility] EST Care) [facility] 06/28/2016 eCW2 (Tejada Shellabarger 12:00:00 AM [facility] EST Care) [facility] 06/09/2016 eCW2 (Tejada Shellabarger 12:00:00 AM [facility] EST Care) [facility] 06/09/2016 eCW2 (Tejada Shellabarger 12:00:00 AM [facility] EST Care) [facility] 05/26/2016 eCW2 (Tejada Shellabarger 12:00:00 AM [facility] EST Care) [facility] 05/24/2016 eCW2 (Tejada Shellabarger 12:00:00 AM [facility] EST Care) [facility] 05/24/2016 eCW2 (Tejada Shellabarger 12:00:00 AM [facility] EST Care) [facility] 05/16/2016 eCW2 (Tejada Shellabarger 12:00:00 AM [facility] EST Care) [facility] 05/02/2016 eCW2 (Tejada Shellabarger 12:00:00 AM [facility] EST Care) [facility] 04/27/2016 eCW2 (Tejada Shellabarger 12:00:00 AM [facility] EST Care) [facility] 04/27/2016 eCW2 (Tejada Shellabarger 12:00:00 AM [facility] EST Care) [facility] 04/27/2016 eCW2 (Tejada Shellabarger 12:00:00 AM [facility] EST Care) [facility] 04/24/2016 eCW2 (Tejada Shellabarger 12:00:00 AM [facility] EST Care) [facility] 04/24/2016 eCW2 (Tejada Shellabarger 12:00:00 AM [facility] EST Care) [facility] 04/19/2016 eCW2 (Tejada Shellabarger 12:00:00 AM [facility] EST Care) [facility] 04/17/2016 eCW2 (Tejada Shellabarger 12:00:00 AM [facility] EST Care) [facility] 04/17/2016 eCW2 (Tejada Shellabarger 12:00:00 AM [facility] EST Care) [facility] 04/12/2016 eCW2 (Tejada Shellabarger 12:00:00 AM [facility] EST Care) [facility] 04/10/2016 eCW2 (Tejada Shellabarger 12:00:00 AM [facility] EST Care) [facility] 03/27/2016 eCW2 (Tejada Shellabarger 12:00:00 AM [facility] EST Care) [facility] 03/15/2016 eCW2 (Tejada Shellabarger 12:00:00 AM [facility] EST Care) [facility] 03/13/2016 eCW2 (Tej[place] Shellabarger 12:00:00 AM [facility] EST Care) [facility] 03/02/2016 eCW2 (Tejada Shellabarger 12:00:00 AM [facility] EDT Care) [facility] 02/22/2016 eCW2 (Tejada Shellabarger 12:00:00 AM [facility] EDT Care) [facility] 02/16/2016 eCW2 (Tejada Shellabarger 12:00:00 AM [facility] EDT Care) [facility] 02/10/2016 eCW2 (Tejada Shellabarger 12:00:00 AM [facility] EDT Care) [facility] 02/10/2016 eCW2 (Tejada Shellabarger 12:00:00 AM [facility] EDT Care) [facility] 02/10/2016 eCW2 (Tejada Shellabarger 12:00:00 AM [facility] EDT Care) [facility] 02/09/2016 eCW2 (Tejada Shellabarger 12:00:00 AM [facility] EDT Care) [facility] 02/08/2016 eCW2 (Tejada Shellabarger 12:00:00 AM [facility] EDT Care) [facility] 02/08/2016 eCW2 (Tejada Shellabarger 12:00:00 AM [facility] EDT Care) [facility] 01/31/2016 eCW2 ([place]jada Shellabarger 12:00:00 AM [facility] EDT Care) [facility] 01/31/2016 eCW2 (Tejada Shellabarger 12:00:00 AM [facility] EDT Care) [facility] 01/20/2016 eCW2 (Tejada Shellabarger 12:00:00 AM [facility] EDT Care) [facility] 01/20/2016 eCW2 (Tejada Shellabarger 12:00:00 AM [facility] EDT Care) [facility] 01/20/2016 eCW2 (Tejada Shellabarger 12:00:00 AM [facility] EDT Care) [facility] 01/19/2016 eCW2 ([place] Shellabarger 12:00:00 AM [facility] EDT Care) [facility] 01/14/2016 eCW2 (Tejada Shellabarger 12:00:00 AM [facility] EDT Care) [facility] 01/14/2016 eCW2 (Tejada Shellabarger 12:00:00 AM [facility] EDT Care) [facility] 01/13/2016 eCW2 (Tejada Shellabarger 12:00:00 AM [facility] EDT Care) [facility] 01/12/2016 eCW2 (Tejada Shellabarger 12:00:00 AM [facility] EDT Care) [facility] 01/12/2016 eCW2 (Tejada Shellabarger 12:00:00 AM [facility] EDT Care) [facility] 12/30/2015 eCW2 ([place]jada Shellabarger 12:00:00 AM [facility] EDT Care) [facility] 12/27/2015 eCW2 (Tejada Shellabarger 12:00:00 AM [facility] EDT Care) [facility] 12/27/2015 eCW2 (Tejada Shellabarger 12:00:00 AM [facility] EDT Care) [facility] 12/24/2015 eCW2 (Tejada Shellabarger 12:00:00 AM [facility] EDT Care) [facility] 12/23/2015 eCW2 (Tejada Shellabarger 12:00:00 AM [facility] EDT Care) [facility] 12/23/2015 eCW2 (Tejada Shellabarger 12:00:00 AM [facility] EDT Care) [facility] 12/23/2015 eCW2 (Tejada Shellabarger 12:00:00 AM [facility] EDT Care) [facility] 12/23/2015 eCW2 (Tejada Shellabarger 12:00:00 AM [facility] EDT Care) [facility] 12/21/2015 eCW2 (Tejada Shellabarger 12:00:00 AM [facility] EDT Care) [facility] 12/20/2015 eCW2 (Tejada Shellabarger 12:00:00 AM [facility] EDT Care) [facility] 12/15/2015 eCW2 (Tej[place] Shellabarger 12:00:00 AM [facility] EDT Care) [facility] 12/15/2015 eCW2 (Tejada Shellabarger 12:00:00 AM [facility] EDT Care) [facility] 12/13/2015 eCW2 (Tejada Shellabarger 12:00:00 AM [facility] EDT Care) [facility] 12/13/2015 eCW2 (Tejada Shellabarger 12:00:00 AM [facility] EDT Care) [facility] 12/10/2015 eCW2 (Tejada Shellabarger 12:00:00 AM [facility] EDT Care) [facility] 12/10/2015 eCW2 (Tejada Shellabarger 12:00:00 AM [facility] EDT Care) [facility] 12/09/2015 eCW2 (Tejada Shellabarger 12:00:00 AM [facility] EDT Care) [facility] 12/09/2015 eCW2 (Tejada Shellabarger 12:00:00 AM [facility] EDT Care) [facility] 12/06/2015 eCW2 (Tejada Shellabarger 12:00:00 AM [facility] EDT Care) [facility] 11/11/2015 eCW2 (Tejada Shellabarger 12:00:00 AM [facility] EDT Care) [facility] 11/03/2015 eCW2 (Tejada Shellabarger 12:00:00 AM [facility] EDT Care) [facility] 11/03/2015 eCW2 ([place] Shellabarger 12:00:00 AM [facility] EDT Care) [facility] 11/02/2015 eCW2 (Tejada Shellabarger 12:00:00 AM [facility] EDT Care) [facility] 11/02/2015 eCW2 (Tejada Shellabarger 12:00:00 AM [facility] EDT Care) [facility] 11/02/2015 eCW2 (Tejada Shellabarger 12:00:00 AM [facility] EDT Care) [facility] 11/01/2015 eCW2 (Tejada Shellabarger 12:00:00 AM [facility] EDT Care) [facility] 10/29/2015 eCW2 (Tejada Shellabarger 12:00:00 AM [facility] EDT Care) [facility] 10/29/2015 eCW2 (Tejada Shellabarger 12:00:00 AM [facility] EDT Care) [facility] 10/27/2015 eCW2 (Tejada Shellabarger 12:00:00 AM [facility] EDT Care) [facility] 10/27/2015 eCW2 (Tejada Shellabarger 12:00:00 AM [facility] EDT Care) [facility] 10/25/2015 eCW2 (Tejada Shellabarger 12:00:00 AM [facility] EDT Care) [facility] 10/19/2015 eCW2 (Tejada Shellabarger 12:00:00 AM [facility] EDT Care) [facility] 10/19/2015 eCW2 (Tejada Shellabarger 12:00:00 AM [facility] EDT Care) [facility] 10/11/2015 eCW2 (Tejada Shellabarger 12:00:00 AM [facility] EDT Care) [facility] 10/07/2015 eCW2 (Tejada Shellabarger 12:00:00 AM [facility] EDT Care) [facility] 10/07/2015 eCW2 (Tejada Shellabarger 12:00:00 AM [facility] EDT Care) [facility] 09/30/2015 eCW2 (Tejada Shellabarger 12:00:00 AM [facility] EDT Care) [facility] 09/15/2015 eCW2 (Tejada Shellabarger 12:00:00 AM [facility] EDT Care) [facility] 09/09/2015 eCW2 (Tejada Shellabarger 12:00:00 AM [facility] EDT Care) [facility] 09/09/2015 eCW2 (Tejada Shellabarger 12:00:00 AM [facility] EDT Care) [facility] 09/09/2015 eCW2 (Tejada Shellabarger 12:00:00 AM [facility] EDT Care) [facility] 09/07/2015 eCW2 (Tejada Shellabarger 12:00:00 AM [facility] EDT Care) [facility] 08/23/2015 eCW2 (Tejada Shellabarger 12:00:00 AM [facility] EDT Care) [facility] 08/12/2015 eCW2 (Tejada Shellabarger 12:00:00 AM [facility] EDT Care) [facility] 08/05/2015 eCW2 (Tejada Shellabarger 12:00:00 AM [facility] EDT Care) [facility] 08/05/2015 eCW2 (Tejada Shellabarger 12:00:00 AM [facility] EDT Care) [facility] 07/15/2015 eCW2 (Tejada Shellabarger 12:00:00 AM [facility] EST Care) [facility] 07/15/2015 eCW2 (Tejada Shellabarger 12:00:00 AM [facility] EST Care) [facility] 06/17/2015 eCW2 (Tejada Shellabarger 12:00:00 AM [facility] EST Care) [facility] 06/11/2015 eCW2 (Tejada Shellabarger 12:00:00 AM [facility] EST Care) [facility] 06/11/2015 eCW2 (Tejada Shellabarger 12:00:00 AM [facility] EST Care) [facility] 06/09/2015 eCW2 (Tejada Shellabarger 12:00:00 AM [facility] EST Care) [facility] 06/09/2015 eCW2 (Tejada Shellabarger 12:00:00 AM [facility] EST Care) [facility] 05/18/2015 eCW2 (Tejada Shellabarger 12:00:00 AM [facility] EST Care) [facility] 05/17/2015 eCW2 (Tejada Shellabarger 12:00:00 AM [facility] EST Care) [facility] 04/20/2015 eCW2 (Tejada Shellabarger 12:00:00 AM [facility] EST Care) [facility] 04/14/2015 eCW2 (Tejada Shellabarger 12:00:00 AM [facility] EST Care) [facility] 04/14/2015 eCW2 (Tejada Shellabarger 12:00:00 AM [facility] EST Care) [facility] 04/14/2015 eCW2 (Tejada Shellabarger 12:00:00 AM [facility] EST Care) [facility] 03/23/2015 eCW2 (Tejada Shellabarger 12:00:00 AM [facility] EST Care) [facility] 03/23/2015 eCW2 (Tejada Shellabarger 12:00:00 AM [facility] EST Care) [facility] 03/23/2015 eCW2 (Tejada Shellabarger 12:00:00 AM [facility] EST Care) [facility] 03/17/2015 eCW2 (Tejada Shellabarger 12:00:00 AM [facility] EST Care) [facility] 01/28/2015 eCW2 (Tejada Shellabarger 12:00:00 AM [facility] EDT Care) [facility] 01/14/2015 eCW2 (Tejada Shellabarger 12:00:00 AM [facility] EDT Care) [facility] 01/14/2015 eCW2 (Tejada Shellabarger 12:00:00 AM [facility] EDT Care) [facility] 01/13/2015 eCW2 (Tejada Shellabarger 12:00:00 AM [facility] EDT Care) [facility] 01/08/2015 eCW2 (Tejada Shellabarger 12:00:00 AM [facility] EDT Care) [facility] 01/06/2015 eCW2 (Tejada Shellabarger 12:00:00 AM [facility] EDT Care) [facility] 12/21/2014 eCW2 (Tejada Shellabarger 12:00:00 AM [facility] EDT Care) [facility] 10/12/2014 eCW2 ([place] Shellabarger 12:00:00 AM [facility] EDT Care) [facility] 10/05/2014 eCW2 (Tejada Shellabarger 12:00:00 AM [facility] EDT Care) [facility] 09/30/2014 eCW2 (Tejada Shellabarger 12:00:00 AM [facility] EDT Care) [facility] 09/30/2014 eCW2 (Tejada Shellabarger 12:00:00 AM [facility] EDT Care) [facility] 09/23/2014 eCW2 (Tejada Shellabarger 12:00:00 AM [facility] EDT Care) [facility] 09/18/2014 eCW2 ([place] Shellabarger 12:00:00 AM [facility] EDT Care) [facility] 09/14/2014 eCW2 (Tej[place] Shellabarger 12:00:00 AM [facility] EDT Care) [facility] 08/19/2014 eCW2 (Tejada Shellabarger 12:00:00 AM [facility] EDT Care) [facility] 08/19/2014 eCW2 (Tejada Shellabarger 12:00:00 AM [facility] EDT Care) [facility] 08/18/2014 eCW2 (Tejada Shellabarger 12:00:00 AM [facility] EDT Care) [facility] 08/17/2014 eCW2 (Tejada Shellabarger 12:00:00 AM [facility] EDT Care) [facility] 07/30/2014 eCW2 (Tejada Shellabarger 12:00:00 AM [facility] EDT Care) [facility] 07/17/2014 eCW2 (Tejada Shellabarger 12:00:00 AM [facility] EDT Care) [facility] 07/06/2014 eCW2 (Tejada Shellabarger 12:00:00 AM [facility] EST Care) [facility] 06/29/2014 eCW2 (Tejada Shellabarger 12:00:00 AM [facility] EST Care) [facility] 06/29/2014 eCW2 (Tejada Shellabarger 12:00:00 AM [facility] EST Care) [facility] 06/29/2014 eCW2 (Tejada Shellabarger 12:00:00 AM [facility] EST Care) [facility] 06/25/2014 eCW2 (Tejada Shellabarger 12:00:00 AM [facility] Care) [facility] 06/24/2014 eCW2 (Tejada Shellabarger 12:00:00 AM [facility] EST Care) [facility] 06/24/2014 eCW2 (Tejada Shellabarger 12:00:00 AM [facility] EST Care) [facility] 06/24/2014 eCW2 (Tejada Shellabarger 12:00:00 AM [facility] EST Care) [facility] 06/24/2014 eCW2 (Tejada Shellabarger 12:00:00 AM [facility] EST Care) [facility] 06/18/2014 eCW2 (Tejada Shellabarger 12:00:00 AM [facility] EST Care) [facility] 06/09/2014 eCW2 (Tejada Shellabarger 12:00:00 AM [facility] EST Care) [facility] 05/22/2014 eCW2 (Tejada Shellabarger 12:00:00 AM [facility] EST Care) [facility] 05/20/2014 eCW2 (Tejada Shellabarger 12:00:00 AM [facility] EST Care) [facility] 05/05/2014 eC W2 (Tejada Shellabarger 12:00:00 AM [facility] EST Care) [facility] 04/14/2014 eCW2 (Tejada Shellabarger 12:00:00 AM [facility] EST Care) [facility] 03/10/2014 eCW2 (Tejada Shellabarger 12:00:00 AM [facility] EST Care) [facility] 03/09/2014 eCW2 (Tejada Shellabarger 12:00:00 AM [facility] EST Care) [facility] 03/09/2014 eCW2 (Tejada Shellabarger 12:00:00 AM [facility] EST Care) [facility] 02/27/2014 eCW2 (Tejada Shellabarger 12:00:00 AM [facility] EDT Care) [facility] 02/04/2014 eCW2 (Tejada Shellabarger 12:00:00 AM [facility] EDT Care) [facility] 01/29/2014 eCW2 (Tejada Shellabarger 12:00:00 AM [facility] EDT Care) [facility] 01/29/2014 eCW2 (Tejada Shellabarger 12:00:00 AM [facility] EDT Care) [facility] 01/28/2014 eCW2 (Tejada Shellabarger 12:00:00 AM [facility] EDT Care) [facility] 01/26/2014 eCW2 (Tejada Shellabarger 12:00:00 AM [facility] EDT Care) [facility] 01/19/2014 eCW2 (Tejada Shellabarger 12:00:00 AM [facility] EDT Care) [facility] 01/16/2014 eCW2 (Tejada Shellabarger 12:00:00 AM [facility] EDT Care) [facility] 01/08/2014 eCW2 (Tejada Shellabarger 12:00:00 AM [facility] EDT Care) [facility] 01/08/2014 eCW2 (Tejada Shellabarger 12:00:00 AM [facility] EDT Care) [facility] 12/16/2013 eCW2 (Tejada Shellabarger 12:00:00 AM [facility] EDT Care) [facility] 12/16/2013 eCW2 (Tejada Shellabarger 12:00:00 AM [facility] EDT Care) [facility] 12/03/2013 eCW2 (Tejada Shellabarger 12:00:00 AM [facility] EDT Care) [facility] 11/26/2013 eCW2 (Tejada Shellabarger 12:00:00 AM [facility] EDT Care) [facility] 11/19/2013 eCW2 (Tejada Shellabarger 12:00:00 AM [facility] EDT Care) [facility] 11/01/2013 eCW2 (Tejada Shellabarger 12:00:00 AM [facility] EDT Care) [facility] 10/31/2013 eCW2 ([place] [facility] 12:00:00 AM [facility] EDT Care) [facility] 10/31/2013 eCW2 ([place] [facility] 12:00:00 AM [facility] EDT Care) [facility] 10/31/2013 eCW2 ([place] [facility] 12:00:00 AM [facility] EDT Care) [facility] 10/31/2013 eCW2 ([place] [facility] 12:00:00 AM [facility] EDT Care) [facility] 10/20/2013 eCW2 ([place] [facility] 12:00:00 AM [facility] EDT Care) [facility] 10/20/2013 eCW2 ([place] [facility] 12:00:00 AM [facility] EDT Care) [facility] 10/03/2013 eCW2 ([place] [facility] 12:00:00 AM [facility] EDT Care) [facility] 10/03/2013 eCW2 ([place] [facility] 12:00:00 AM [facility] EDT Care) [facility] 10/02/2013 eCW2 ([place] [facility] 12:00:00 AM [facility] EDT Care) [facility] 10/02/2013 eCW2 ([place] [facility] 12:00:00 AM [facility] EDT Care) [facility] 10/01/2013 eCW2 ([place] [facility] 12:00:00 AM [facility] EDT Care) [facility] 09/18/2013 eCW2 ([place] [facility] 12:00:00 AM [facility] EDT Care) [facility] 09/04/2013 eCW2 ([place] [facility] 12:00:00 AM [facility] EDT Care) [facility] 08/29/2013 eCW2 ([place] [facility] 12:00:00 AM [facility] EDT Care) [facility] 08/27/2013 eCW2 ([place] [facility] 12:00:00 AM [facility] EDT Care) [facility] 08/26/2013 eCW2 ([place] [facility] 12:00:00 AM [facility] EDT Care) [facility] 08/21/2013 eCW2 ([place] [facility] 12:00:00 AM [facility] EDT Care) [facility] 08/21/2013 eCW2 ([place] [facility] 12:00:00 AM [facility] EDT Care) [facility] 08/20/2013 eCW2 ([place] [facility] 12:00:00 AM [facility] EDT Care) [facility] 08/19/2013 eCW2 ([place] [facility] 12:00:00 AM [facility] EDT Care) [facility] 08/19/2013 eCW2 ([place] [facility] 12:00:00 AM [facility] EDT Care) [facility] 08/18/2013 eCW2 ([place] [facility] 12:00:00 AM [facility] EDT Care) [facility] 08/13/2013 eCW2 ([place] [facility] 12:00:00 AM [facility] EDT Care) [facility] 08/06/2013 eCW2 ([place] [facility] 12:00:00 AM [facility] EDT Care) [facility] 08/05/2013 eCW2 ([place] [facility] 12:00:00 AM [facility] EDT Care) [facility] 08/01/2013 eCW2 ([place] [facility] 12:00:00 AM [facility] EDT Care) [facility] 08/01/2013 eCW2 ([place] [facility] 12:00:00 AM [facility] EDT Care) [facility] 07/29/2013 eCW2 ([place] [facility] 12:00:00 AM [facility] EDT Care) [facility] 07/16/2013 eCW2 ([place] [facility] 12:00:00 AM [facility] EDT Care) [facility] 07/16/2013 eCW2 ([place] [facility] 12:00:00 AM [facility] EDT Care) [facility] 07/10/2013 eCW2 ([place] [facility] 12:00:00 AM [facility] EST Care) [facility] 07/10/2013 eCW2 ([place] [facility] 12:00:00 AM [facility] EST Care) [facility] 06/25/2013 eCW2 ([place] [facility] 12:00:00 AM [facility] EST Care) [facility] 06/06/2013 eCW2 ([place] [facility] 12:00:00 AM [facility] EST Care) [facility] 05/23/2013 eCW2 ([place] [facility] 12:00:00 AM [facility] EST Care) [facility] 05/23/2013 eCW2 ([place] [facility] 12:00:00 AM [facility] EST Care) [facility] 05/22/2013 eCW2 ([place] [facility] 12:00:00 AM [facility] EST Care) [facility] 05/15/2013 eCW2 ([place] [facility] 12:00:00 AM [facility] EST Care) [facility] 05/15/2013 eCW2 ([place] [facility] 12:00:00 AM [facility] EST Care) [facility] 04/16/2013 eCW2 ([place] [facility] 12:00:00 AM [facility] EST Care) [facility] 03/11/2013 eCW2 ([place] [facility] 12:00:00 AM [facility] EST Care) [facility] 03/11/2013 eCW2 ([place] [facility] 12:00:00 AM [facility] EST Care) [facility] 03/04/2013 eCW2 ([place] [facility] 12:00:00 AM [facility] EDT Care) [facility] 01/16/2013 eCW2 ([place] [facility] 12:00:00 AM [facility] EDT Care) [facility] 01/09/2013 eCW2 ([place] [facility] 12:00:00 AM [facility] EDT Care) [facility] 01/09/2013 eCW2 ([place] [facility] 12:00:00 AM [facility] EDT Care) [facility] 11/22/2012 eCW2 ([place] [facility] 12:00:00 AM [facility] EDT Care) [facility] 11/22/2012 eCW2 ([place] [facility] 12:00:00 AM [facility] EDT Care) [facility] 11/08/2012 eCW2 ([place] [facility] 12:00:00 AM [facility] EDT Care) [facility] 11/08/2012 eCW2 ([place] [facility] 12:00:00 AM [facility] EDT Care) [facility] 10/10/2012 eCW2 ([place] [facility] 12:00:00 AM [facility] EDT Care) [facility] 10/03/2012 eCW2 ([place] [facility] 12:00:00 AM [facility] EDT Care) [facility] 09/26/2012 eCW2 ([place] [facility] 12:00:00 AM [facility] EDT Care) [facility] 09/04/2012 eCW2 ([place] [facility] 12:00:00 AM [facility] EDT Care) [facility] 08/05/2012 eCW2 ([place] [facility] 12:00:00 AM [facility] EDT Care) [facility] 08/02/2012 eCW2 ([place] [facility] 12:00:00 AM [facility] EDT Care) [facility] 08/02/2012 eCW2 ([place] [facility] 12:00:00 AM [facility] EDT Care) [facility] 07/31/2012 eCW2 ([place] [facility] 12:00:00 AM [facility] EDT Care) [facility] 07/31/2012 eCW2 ([place] [facility] 12:00:00 AM [facility] EDT Care) [facility] 07/23/2012 eCW2 ([place] [facility] 12:00:00 AM [facility] EDT Care) [facility] 06/27/2012 eCW2 ([place] [facility] 12:00:00 AM [facility] EST Care) [facility] 06/27/2012 eCW2 ([place] [facility] 12:00:00 AM [facility] EST Care) [facility] 06/27/2012 eCW2 ([place] [facility] 12:00:00 AM [facility] EST Care) [facility] 05/28/2012 eCW2 ([place] [facility] 12:00:00 AM [facility] EST Care) [facility] 05/17/2012 eCW2 ([place] [facility] 12:00:00 AM [facility] EST Care) [facility] 04/03/2012 eCW2 ([place] [facility] 12:00:00 AM [facility] EST Care) [facility] 01/15/2012 eCW2 ([place] [facility] 12:00:00 AM [facility] EDT Care) [facility] 09/25/2011 eCW2 ([place] [facility] 12:00:00 AM [facility] EDT Care) [facility] 09/25/2011 eCW2 ([place] [facility] 12:00:00 AM [facility] EDT Care) [facility] 08/21/2011 eCW2 ([place] [facility] 12:00:00 AM [facility] EDT Care) [facility] 08/15/2011 eCW2 ([place] [facility] 12:00:00 AM [facility] EDT Care) [facility] 07/31/2011 eCW2 ([place] [facility] 12:00:00 AM [facility] EDT Care) [facility] 07/17/2011 eCW2 ([place] [facility] 12:00:00 AM [facility] EDT Care) [facility] 07/11/2011 eCW2 ([place] [facility] 12:00:00 AM [facility] EST Care) [facility] 06/16/2011 eCW2 ([place] [facility] 12:00:00 AM [facility] EST Care) [facility] 04/19/2011 eCW2 ([place] [facility] 12:00:00 AM [facility] EST Care) [facility] 03/10/2011 eCW2 ([place] [facility] 12:00:00 AM [facility] EDT Care) [facility] 03/10/2011 eCW2 ([place] [facility] 12:00:00 AM [facility] EDT Care) [facility] 02/28/2011 eCW2 ([place] [facility] 12:00:00 AM [facility] EDT Care) [facility] 02/09/2011 eCW2 ([place] [facility] 12:00:00 AM [facility] EDT Care) [facility] 01/06/2011 eCW2 ([place] [facility] 12:00:00 AM [facility] EDT Care) [facility] 11/21/2010 eCW2 ([place] [facility] 12:00:00 AM [facility] EDT Care) [facility] 11/16/2010 eCW2 ([place] [facility] 12:00:00 AM [facility] EDT Care) [facility] 09/28/2010 eCW2 ([place] [facility] 12:00:00 AM [facility] EDT Care) [facility] 09/26/2010 eCW2 ([place] [facility] 12:00:00 AM [facility] EDT Care) [facility] 08/08/2010 eCW2 ([place] [facility] 12:00:00 AM [facility] EDT Care) [facility] 07/27/2010 eCW2 ([place] [facility] 12:00:00 AM [facility] EDT Care) [facility] 07/25/2010 eCW2 ([place] [facility] 12:00:00 AM [facility] EDT Care) [facility] 07/25/2010 eCW2 ([place] [facility] 12:00:00 AM [facility] EDT Care) [facility] 07/20/2010 eCW2 ([place] [facility] 12:00:00 AM [facility] EDT Care) [facility] 06/13/2010 eCW2 ([place] [facility] 12:00:00 AM [facility] EST Care) [facility] 06/13/2010 eCW2 ([place] [facility] 12:00:00 AM [facility] EST Care) [facility] 04/06/2010 eCW2 ([place] [facility] 12:00:00 AM [facility] EST Care) [facility] 03/16/2010 eCW2 ([place] [facility] 12:00:00 AM [facility] EST Care) [facility] 03/16/2010 eCW2 ([place] [facility] 12:00:00 AM [facility] EST Care) [facility] 03/14/2010 eCW2 ([place] [facility] 12:00:00 AM [facility] EST Care) [facility] 01/26/2010 eCW2 ([place] [facility] 12:00:00 AM [facility] EDT Care) [facility] 12/17/2009 eCW2 ([place] [facility] 12:00:00 AM [facility] EDT Care) [facility] 08/19/2009 eCW2 ([place] [facility] 12:00:00 AM [facility] EDT Care) [facility] 08/19/2009 eCW2 ([place] [facility] 12:00:00 AM [facility] EDT Care) [facility] 06/22/2009 eCW2 ([place] [facility] 12:00:00 AM [facility] EST Care) [facility] 06/11/2009 eCW2 ([place] [facility] 12:00:00 AM [facility] EST Care) [facility] 06/10/2009 eCW2 ([place] [facility] 12:00:00 AM [facility] EST Care) [facility] 05/31/2009 eCW2 ([place] [facility] 12:00:00 AM [facility] EST Care) [facility] 05/14/2009 eCW2 ([place] [facility] 12:00:00 AM [facility] EST Care) [facility] 04/23/2009 eCW2 ([place] [facility] 12:00:00 AM [facility] EST Care) [facility] 04/20/2009 eCW2 ([place] [facility] 12:00:00 AM [facility] EST Care) [facility] 04/14/2009 eCW2 ([place] [facility] 12:00:00 AM [facility] EST Care) [facility] 04/14/2009 eCW2 ([place] [facility] 12:00:00 AM [facility] EST Care) [facility] 02/16/2009 eCW2 ([place] [facility] 12:00:00 AM [facility] EDT Care) [facility] 02/08/2009 eCW2 ([place] [facility] 12:00:00 AM [facility] EDT Care) [facility] 02/08/2009 eCW2 ([place] [facility] 12:00:00 AM [facility] EDT Care) [facility] 01/22/2009 eCW2 ([place] [facility] 12:00:00 AM [facility] EDT Care) [facility] 12/03/2008 eCW2 ([place] [facility] 12:00:00 AM [facility] EDT Care) [facility] 11/25/2008 eCW2 ([place] 12:00:00 AM [facility] EDT Care) [facility] 11/10/2008 eCW2 ([place] [facility] 12:00:00 AM [facility] EDT Care) [facility] 10/26/2008 eCW2 ([place] [facility] 12:00:00 AM [facility] EDT Care) [facility] 10/23/2008 eCW2 ([place] [facility] 12:00:00 AM [facility] EDT Care) [facility] 10/19/2008 eCW2 ([place] [facility] 12:00:00 AM [facility] EDT Care) [facility] 10/15/2008 eCW2 ([place] [facility] 12:00:00 AM [facility] EDT Care) [facility] 10/09/2008 eCW2 ([place] [facility] 12:00:00 AM [facility] EDT Care) [facility] 10/08/2008 eCW2 ([place] [facility] 12:00:00 AM [facility] EDT Care) [facility] 10/05/2008 eCW2 ([place] [facility] 12:00:00 AM [facility] EDT Care) [facility] 10/01/2008 eCW2 ([place] [facility] 12:00:00 AM [facility] EDT Care) [facility] 09/01/2008 eCW2 ([place] 12:00:00 AM [facility] EDT Care) Immunizations Vaccine Date Status Description Data Source(s) New in 2011. IIV4 02/02/2020 completed eCW3 ([place] 03:55:00 PM ED Health Care) New in 2011. IIV4 02/02/2020 completed eCW3 ([place] 03:55:00 PM EDT Health Care) Note that this vaccine 03/04/2018 completed eCW3 ([place] name has changed. See 08:50:00 AM EDT [facility] Care) also Td (adult). It is not adsorbed. Note that this vaccine 03/04/2018 completed eCW3 ([place] name has changed. See 08:50:00 AM EDT [facility] Care) also Td (adult). It is not adsorbed. Note that this vaccine 03/04/2018 completed eCW3 ([place] name has changed. See 08:50:00 AM EDT He alth Care) also Td (adult). It is not adsorbed. Note that this vaccine 03/04/2018 completed eCW3 ([place] name has changed. See 08:50:00 AM EDT [facility]th Care) also Td (adult). It is not adsorbed. Note that this vaccine 03/04/2018 completed eCW3 ([place] name has changed. See 08:50:00 AM EDT [facility]th Care) also Td (adult). It is not adsorbed. Note that this vaccine 03/04/2018 completed eCW3 ([place] name has changed. See 08:50:00 AM EDT He alth Care) also Td (adult). It is not adsorbed. New in 2011. IIV4 01/31/2018 completed eCW3 ([place] 04:52:00 PM EDT Health Care) New in 2011. IIV4 01/31/2018 completed eCW3 ([place] 04:52:00 PM EDT Health Care) New in 2011. IIV4 01/31/2018 completed eCW3 ([place] 04:52:00 PM EDT Health Care) New in 2011. IIV4 01/31/2018 completed eCW3 ([place] 04:52:00 PM EDT Health Care) New in 2011. IIV4 01/31/2018 completed eCW3 ([place] 04:52:00 PM EDT Health Care) New in 2011. IIV4 01/31/2018 completed eCW3 ([place] 04:52:00 PM EDT Health Care) IIV3. This is one of two 02/23/2017 completed eCW 3 ([place] codes replacing CVX 15, 10:51:00 AM EDT H ealth Care) which is being retired. IIV3. This is one of two 02/23/2017 completed eCW 3 ([place] codes replacing CVX 15, 10:51:00 AM EDT [facility] Care) which is being retired. IIV3. This is one of two 02/23/2017 completed eCW 3 ([place] codes replacing CVX 15, 10:51:00 AM EDT [facility] Care) which is being retired. IIV3. This is one of two 02/23/2017 completed eCW 3 ([place] codes replacing CVX 15, 10:51:00 [facility] which is being [facility]. IIV3. This is one of two 02/23/2017 completed eCW 3 ([place] codes replacing CVX 15, 10:51:00 AM EDT H ealt Care) which is being retired. IIV3. This is one of two 02/23/2017 completed eCW 3 ([place] codes replacing CVX 15, 10:51:00 AM EDT H ealt Care) which is being retired. IIV3. This vaccine code is 01/20/2016 completed e CW3 ([place] one of two which replace 08:46:00 AM EDT Health Care) CVX 15, influenza, split virus. IIV3. This vaccine code is 01/20/2016 completed e CW3 ([place] one of two which replace 08:46:00 AM EDT Health Care) CVX 15, influenza, split virus. IIV3. This vaccine code is 01/20/2016 completed e CW3 ([place] one of two which replace 08:46:00 AM EDT Health Care) CVX 15, influenza, split virus. IIV3. This vaccine code is 01/20/2016 completed e CW3 ([place] one of two which replace 08:46:00 AM EDT Health Care) CVX 15, influenza, split virus. IIV3. This vaccine code is 01/20/2016 completed e CW3 ([place] one of two which replace 08:46:00 AM EDT Health Care) CVX 15, influenza, split virus. IIV3. This vaccine code is 01/20/2016 completed e CW3 ([place] one of two which replace 08:46:00 AM EDT Health Care) CVX 15, influenza, split virus. Pneumococcal conjugate PCV 01/20/2016 completed e CW3 ([place] 13 08:45:00 AM EDT Health Care) Pneumococcal conjugate PCV 01/20/2016 completed e CW3 ([place] 13 08:45:00 AM EDT Health Care) Pneumococcal conjugate PCV 01/20/2016 completed e CW3 ([place] 13 08:45:00 AM EDT Health Care) Pneumococcal conjugate PCV 01/20/2016 completed e CW3 ([place] 13 08:45:00 AM EDT Health Care) Pneumococcal conjugate PCV 01/20/2016 completed e CW3 ([place] 13 08:45:00 AM EDT Health Care) Pneumococcal conjugate PCV 01/20/2016 completed e CW3 ([place] 13 08:45:00 AM EDT Health Care) New in 2011. IIV4 03/23/2015 completed eCW3 ([place] 09:50:00 AM EST Health Care) New in 2011. IIV4 03/23/2015 completed eCW3 ([place] 09:50:00 AM EST Health Care) New in 2011. IIV4 03/23/2015 completed eCW3 ([place] 09:50:00 AM EST Health Care) New in 2011. IIV4 03/23/2015 completed eCW3 ([place] 09:50:00 AM EST Health Care) New in 2011. IIV4 03/23/2015 completed eCW3 ([place] 09:50:00 AM EST Health Care) New in 2011. IIV4 03/23/2015 completed eCW3 ([place] 09:50:00 AM EST Health Care) As of January 1999, a 04/14/2014 completed eCW3 ([place] 2-dose hepatitis B 11:33:00 AM EST Health Care) schedule for adolescents (11-15 year olds) was FDA approved for [employer]'s Recombivax HB adult formulation. Use code 43 for the 2-dose. This code should be used for any use of standard adult formulation of hepatitis B vaccine. As of January 1999, a 04/14/2014 completed eCW3 ([place] 2-dose hepatitis B 11:33:00 AM EST Health Care) schedule for adolescents (11-15 year olds) was FDA approved for Merck's Recombivax HB adult formulation. Use code 43 for the 2-dose. This code should be used for any use of standard adult formulation of hepatitis B vaccine. As of January 1999, a 04/14/2014 completed eCW3 ([place] 2-dose hepatitis B 11:33:00 AM EST Health Care) schedule for adolescents (11-15 year olds) was FDA approved for Merck's Recombivax HB adult formulation. Use code 43 for the 2-dose. This code should be used for any use of standard adult formulation of hepatitis B vaccine. As of January 1999, a 04/14/2014 completed eCW3 ([place] 2-dose hepatitis B 11:33:00 AM EST Health Care) schedule for adolescents (11-15 year olds) was FDA approved for Merck's Recombivax HB adult formulation. Use code 43 for the 2-dose. This code should be used for any use of standard adult formulation of hepatitis B vaccine. As of January 1999, a 04/14/2014 completed eCW3 ([place] 2-dose hepatitis B 11:33:00 AM EST Health Care) schedule for adolescents (11-15 year olds) was FDA approved for Merck's Recombivax HB adult formulation. Use code 43 for the 2-dose. This code should be used for any use of standard adult formulation of hepatitis B vaccine. As of January 1999, a 04/14/2014 completed eCW3 ([place] 2-dose hepatitis B 11:33:00 AM EST Health Care) schedule for adolescents (11-15 year olds) was FDA approved for Merck's Recombivax HB adult formulation. Use code 43 for the 2-dose. This code should be used for any use of standard adult formulation of hepatitis B vaccine. New in 2011. IIV4 01/08/2014 completed eCW3 ([place] 11:41:00 AM EDT Health Care) New in 2011. IIV4 01/08/2014 completed eCW3 ([place] 11:41:00 AM EDT Health Care) New in 2011. IIV4 01/08/2014 completed eCW3 ([place] 11:41:00 AM EDT Health Care) New in 2011. IIV4 01/08/2014 completed eCW3 ([place] 11:41:00 AM EDT Health Care) New in 2011. IIV4 01/08/2014 completed eCW3 ([place] 11:41:00 AM EDT Health Care) New in 2011. IIV4 01/08/2014 completed eCW3 ([place] 11:41:00 AM EDT Health Care) As of January 1999, a 12/16/2013 completed eCW3 ([place] 2-dose hepatitis B 01:09:00 PM EDT Health Care) schedule for adolescents (11-15 year olds) was FDA approved for Merck's Recombivax HB adult formulation. Use code 43 for the 2-dose. This code should be used for any use of standard adult formulation of hepatitis B vaccine. As of January 1999, a 12/16/2013 completed eCW3 ([place] 2-dose hepatitis B 01:09:00 PM [facility]) schedule for adolescents (11-15 year olds) was FDA approved for Merck's Recombivax HB adult formulation. Use code 43 for the 2-dose. This code should be used for any use of standard adult formulation of hepatitis B vaccine. As of January 1999, a 12/16/2013 completed eCW3 ([place] 2-dose hepatitis B 01:09:00 PM [facility] Care) schedule for adolescents (11-15 year olds) was FDA approved for Merck's Recombivax HB adult formulation. Use code 43 for the 2-dose. This code should be used for any use of standard adult formulation of hepatitis B vaccine. As of January 1999, a 12/16/2013 completed eCW3 ([place] 2-dose hepatitis B 01:09:00 PM [facility]) schedule for adolescents (11-15 year olds) was FDA approved for Merck's Recombivax HB adult formulation. Use code 43 for the 2-dose. This code should be used for any use of standard adult formulation of hepatitis B vaccine. As of January 1999, a 12/16/2013 completed eCW3 ([place] 2-dose hepatitis B 01:09:00 PM [facility] Care) schedule for adolescents (11-15 year olds) was FDA approved for Merck's Recombivax HB adult formulation. Use code 43 for the 2-dose. This code should be used for any use of standard adult formulation of hepatitis B vaccine. As of January 1999, a 12/16/2013 completed eCW3 ([place] 2-dose hepatitis B 01:09:00 PM [facility] Care) schedule for adolescents (11-15 year olds) was FDA approved for Merck's Recombivax HB adult formulation. Use code 43 for the 2-dose. This code should be used for any use of standard adult formulation of hepatitis B vaccine. As of January 1999, a 10/20/2013 completed eCW3 ([place] 2-dose hepatitis B 11:28:00 AM [facility]) schedule for adolescents (11-15 year olds) was FDA approved for Merck's Recombivax HB adult formulation. Use code 43 for the 2-dose. This code should be used for any use of standard adult formulation of hepatitis B vaccine. As of January 1999, a 10/20/2013 completed eCW3 ([place] 2-dose hepatitis B 11:28:00 AM [facility]) schedule for adolescents (11-15 year olds) was FDA approved for Merck's Recombivax HB adult formulation. Use code 43 for the 2-dose. This code should be used for any use of standard adult formulation of hepatitis B vaccine. As of January 1999, a 10/20/2013 completed eCW3 ([place] 2-dose hepatitis B 11:28:00 AM [facility]) schedule for adolescents (11-15 year olds) was FDA approved for Merck's Recombivax HB adult formulation. Use code 43 for the 2-dose. This code should be used for any use of standard adult formulation of hepatitis B vaccine. As of January 1999, a 10/20/2013 completed eCW3 ([place] 2-dose hepatitis B 11:28:00 AM [facility]) schedule for adolescents (11-15 year olds) was FDA approved for Merck's Recombivax HB adult formulation. Use code 43 for the 2-dose. This code should be used for any use of standard adult formulation of hepatitis B vaccine. As of January 1999, a 10/20/2013 completed eCW3 ([employer] [place] 2-dose hepatitis B 11:28:00 AM [facility]) schedule for adolescents (11-15 year olds) was FDA approved for Merck's Recombivax HB adult formulation. Use code 43 for the 2-dose. This code should be used for any use of standard adult formulation of hepatitis B vaccine. As of January 1999, a 10/20/2013 completed eCW3 ([employer] [place] 2-dose hepatitis B 11:28:00 AM [facility]) schedule for adolescents (11-15 year olds) was FDA approved for Merck's Recombivax HB adult formulation. Use code 43 for the 2-dose. This code should be used for any use of standard adult formulation of hepatitis B vaccine. IIV3. This vaccine code is 01/09/2013 completed e CW3 ([place] [facility] one of two which replace 09:48:29 AM [facility]) CVX 15, influenza, split virus. IIV3. This vaccine code is 01/09/2013 completed e CW3 ([place] one of two which replace 09:48:29 AM EDT Health Care) CVX 15, influenza, split virus. IIV3. This vaccine code is 01/09/2013 completed e CW3 ([place] one of two which replace 09:48:29 AM EDT Health Care) CVX 15, influenza, split virus. IIV3. This vaccine code is 01/09/2013 completed e CW3 ([place] one of two which replace 09:48:29 AM EDT Health Care) CVX 15, influenza, split virus. IIV3. This vaccine code is 01/09/2013 completed e CW3 ([place] one of two which replace 09:48:29 AM EDT Health Care) CVX 15, influenza, split virus. IIV3. This vaccine code is 01/09/2013 completed e CW3 ([place] one of two which replace 09:48:29 AM EDT Health Care) CVX 15, influenza, split virus. pneumococcal 04/03/2012 completed eCW3 ([place] [facility] polysaccharide PPV23 11:16:36 AM [facility]) pneumococcal 04/03/2012 completed eCW3 ([place] [facility] polysaccharide PPV23 11:16:36 AM [facility]) pneumococcal 04/03/2012 completed eCW3 ([place] [facility] polysaccharide PPV23 11:16:36 AM EST [facility]) pneumococcal 04/03/2012 completed eCW3 ([place] [facility] polysaccharide PPV23 11:16:36 AM EST [facility]) pneumococcal 04/03/2012 completed eCW3 ([place] [facility] polysaccharide PPV23 11:16:36 AM EST [facility]) pneumococcal 04/03/2012 completed eCW3 ([place] [facility] polysaccharide PPV23 11:16:36 AM EST [facility]) IIV3. This vaccine code is 01/15/2012 completed e CW3 ([place] one of two which replace 02:11:25 PM EDT Health Care) CVX 15, influenza, split virus. IIV3. This vaccine code is 01/15/2012 completed e CW3 ([place] one of two which replace 02:11:25 PM EDT Health Care) CVX 15, influenza, split virus. IIV3. This vaccine code is 01/15/2012 completed e CW3 ([place] one of two which replace 02:11:25 PM EDT Health Care) CVX 15, influenza, split virus. IIV3. This vaccine code is 01/15/2012 completed e CW3 ([place] one of two which replace 02:11:25 PM EDT Health Care) CVX 15, influenza, split virus. IIV3. This vaccine code is 01/15/2012 completed e CW3 ([place] one of two which replace 02:11:25 PM EDT Health Care) CVX 15, influenza, split virus. IIV3. This vaccine code is 01/15/2012 completed e CW3 ([place] one of two which replace 02:11:25 PM EDT Health Care) CVX 15, influenza, split virus. IIV3. This is one of two 01/06/2011 completed eCW 3 ([place] codes replacing CVX 15, 09:59:12 AM EDT [facility]) which is being retired. IIV3. This is one of two 01/06/2011 completed eCW 3 ([place] codes replacing CVX 15, 09:59:12 AM EDT [facility]) which is being retired. IIV3. This is one of two 01/06/2011 completed eCW 3 ([place] codes replacing CVX 15, 09:59:12 AM EDT [facility]) which is being retired. IIV3. This is one of two 01/06/2011 completed eCW 3 ([place] codes replacing CVX 15, 09:59:12 AM EDT [facility]) which is being retired. IIV3. This is one of two 01/06/2011 completed eCW 3 ([place] codes replacing CVX 15, 09:59:12 AM EDT [facility]) which is being retired. IIV3. This is one of two 01/06/2011 completed eCW 3 ([place] codes replacing CVX 15, 09:59:12 AM EDT [facility]) which is being retired. IIV3. This is one of two 01/26/2010 completed eCW 3 ([place] codes replacing CVX 15, 10:55:27 AM EDT [facility]) which is being retired. IIV3. This is one of two 01/26/2010 completed eCW 3 ([place] codes replacing CVX 15, 10:55:27 AM EDT [facility]) which is being retired. IIV3. This is one of two 01/26/2010 completed eCW 3 ([place] codes replacing CVX 15, 10:55:27 AM EDT [facility]) which is being retired. IIV3. This is one of two 01/26/2010 completed eCW 3 ([place] codes replacing CVX 15, 10:55:27 AM EDT [facility]) which is being retired. IIV3. This is one of two 01/26/2010 completed eCW 3 ([place] codes replacing CVX 15, 10:55:27 AM EDT [facility]) which is being retired. IIV3. This is one of two 01/26/2010 completed eCW 3 ([place] codes replacing CVX 15, 10:55:27 AM EDT [facility]) which is being retired. No Known Immunizations completed eCW2 ([facility]) No Known Immunizations completed eCW2 ([facility]) No Known Immunizations completed eCW2 ([facility]) No Known Immunizations completed eCW2 ([facility]) Medications Medication Brand Start Product Dose Route Administrative Pharmacy [facility] Indications Reaction Description Data Name Date Form Instructions Instructions Source(s) MAGIC UNK 12/28/ active MAGIC eCW3 MOUTHWASH 2020 MOUTHWASH ([place] (40 ML 12:00: (40 ML [place] VISCOUS 00 AM VISCOUS Health LIDOCAINE, EDT LIDOCAINE, Car e) 40ML 40ML MYLANTA, 40 MYLANTA, 40 ML BENADRYL ML BENADRYL ELIXIR) ELIXIR) MAGIC UNK 12/28/ active MAGIC eCW3 MOUTHWASH 2020 MOUTHWASH ([place] (40 ML 12:00: (40 ML [place] VISCOUS 00 AM VISCOUS Health LIDOCAINE, EDT LIDOCAINE, Car e) 40ML 40ML MYLANTA, 40 MYLANTA, 40 ML BENADRYL ML BENADRYL ELIXIR) ELIXIR) MAGIC UNK 12/28/ active MAGIC eCW3 MOUTHWASH 2020 MOUTHWASH ([place] (40 ML 12:00: (40 ML [place] VISCOUS 00 AM VISCOUS Health LIDOCAINE, EDT LIDOCAINE, Car e) 40ML 40ML MYLANTA, 40 MYLANTA, 40 ML BENADRYL ML BENADRYL ELIXIR) ELIXIR) MAGIC UNK 12/28/ active MAGIC eCW3 MOUTHWASH 2020 MOUTHWASH ([place] (40 ML 12:00: (40 ML [place] VISCOUS 00 AM VISCOUS Health LIDOCAINE, EDT LIDOCAINE, Car e) 40ML 40ML MYLANTA, 40 MYLANTA, 40 ML BENADRYL ML BENADRYL ELIXIR) ELIXIR) MAGIC UNK 12/28/ active MAGIC eCW3 MOUTHWASH 2020 MOUTHWASH ([place] (40 ML 12:00: (40 ML [place] VISCOUS 00 AM VISCOUS Health LIDOCAINE, EDT LIDOCAINE, Car e) 40ML 40ML MYLANTA, 40 MYLANTA, 40 ML BENADRYL ML BENADRYL ELIXIR) ELIXIR) lamotrigine [place] ORAL active lamotri gine NEXTGEN 200 MG Oral al 200 2019 {tabl 200 MG Ora l ([facility] Tablet mg 12:00: et} Tablet Patria [Lamictal] tablet 00 AM [Lamictal] Medical Lamictal EDT Center) 200 mg tablet aripiprazol Abilif 12/17/ active aripipr azole NEXTGEN e 10 MG y 10 2019 10 MG Oral ([facility] Oral Tablet mg 12:00: Tablet Faheem phs [Abilify] tablet 00 AM [Abilify] De dical Abilify 10 EDT Center) mg tablet Hydroxyzine Vistar ORAL active hydroxy zine NEXTGEN Pamoate 50 il 50 2019 {caps pamoate 50 ( [facility] MG Oral mg 12:00: ule} MG Oral [facility] Capsule capsul 00 AM Capsule Medica l [Vistaril] e EDT [Vistaril] [place] [facility]) Vistaril 50 mg capsule 200 ACTUAT Ventol 12/02/ 2.0 active Ventolin HFA eCW3 Albuterol in HFA 2020 {puff 108 (90 ([place] 0.09 108 12:00: s_as_ Base) [place] MG/ACTUAT (90 00 AM neede MCG/ACT Healt h Metered Base) EDT d} Care) Dose MCG/AC Inhaler T [Ventolin] Ventolin HFA 108 (90 Base) MCG/ACT 200 ACTUAT Ventol 2.0 active Ventolin HFA eCW3 Albuterol in HFA 2020 {puff 108 (90 ([place] 0.09 108 12:00: s_as_ Base) [place] MG/ACTUAT (90 00 AM neede MCG/ACT Healt h Metered Base) EDT d} Care) Dose MCG/AC Inhaler T [Ventolin] Ventolin HFA 108 (90 Base) MCG/ACT 200 ACTUAT Ventol 2.0 active Ventolin HFA eCW3 Albuterol in HFA 2020 {puff 108 (90 ([place] 0.09 108 12:00: s_as_ Base) [place] MG/ACTUAT (90 00 AM neede MCG/ACT Healt h Metered Base) EDT d} Care) Dose MCG/AC Inhaler T [Ventolin] Ventolin HFA 108 (90 Base) MCG/ACT 200 ACTUAT Ventol 2.0 active Ventolin HFA eCW3 Albuterol in HFA 2020 {puff 108 (90 ([place] son 0.09 108 12:00: s_as_ Base) [place] MG/ACTUAT (90 00 AM neede MCG/ACT Healt h Metered Base) EDT d} Care) Dose MCG/AC Inhaler T [Ventolin] Ventolin HFA 108 (90 Base) MCG/ACT 200 ACTUAT Ventol 2.0 active Ventolin HFA eCW3 Albuterol in HFA 2020 {puff 108 (90 ([place] 0.09 108 12:00: s_as_ Base) [place] MG/ACTUAT (90 00 AM neede MCG/ACT Healt h Metered Base) EDT d} Care) Dose MCG/AC Inhaler T [Ventolin] Ventolin HFA 108 (90 Base) MCG/ACT 200 ACTUAT Ventol 2.0 active Ventolin HFA eCW3 Albuterol in HFA 2020 {puff 108 (90 ([place] son 0.09 108 12:00: s_as_ Base) [place] MG/ACTUAT (90 00 AM neede MCG/ACT Healt h Metered Base) EDT d} Care) Dose MCG/AC Inhaler T [Ventolin] Ventolin HFA 108 (90 Base) MCG/ACT 200 ACTUAT Ventol 2.0 active Ventolin HFA eCW3 Albuterol in HFA 2020 {puff 108 (90 ([place] son 0.09 108 12:00: s_as_ Base) [place] MG/ACTUAT (90 00 AM neede MCG/ACT Healt h Metered Base) EDT d} Care) Dose MCG/AC Inhaler T [Ventolin] Ventolin HFA 108 (90 Base) MCG/ACT 200 ACTUAT Ventol .0 active Ventolin HFA eCW3 Albuterol in HFA 2020 {puff 108 (90 ([place] son 0.09 108 12:00: s_as_ Base) [place] MG/ACTUAT (90 00 AM neede MCG/ACT Healt h Metered Base) EDT d} Care) Dose MCG/AC Inhaler T [Ventolin] Ventolin HFA 108 (90 Base) MCG/ACT 60 ACTUAT Advair .0 active Advair eC W3 Fluticasone Diskus 2020 {puff Diskus (Hu [facility] propionate 500-50 12:00: } 500-50 Joni er 0.5 MCG/DO 00 AM MCG/DOSE Health MG/ACTUAT / SE EDT Care) salmeterol 0.05 MG/ACTUAT Dry Powder Inhaler [Advair] Advair Diskus 500-50 MCG/DOSE 60 ACTUAT Advair .0 active Advair eC W3 Fluticasone Diskus 2020 {puff Diskus ([facility] propionate 500-50 12:00: } 500-50 Joni er 0.5 MCG/DO 00 AM MCG/DOSE Health MG/ACTUAT / SE EDT Care) salmeterol 0.05 MG/ACTUAT Dry Powder Inhaler [Advair] Advair Diskus 500-50 MCG/DOSE 60 ACTUAT Advair .0 active Advair eC W3 Fluticasone Diskus 2020 {puff Diskus ([facility] propionate 500-50 12:00: } 500-50 Joni er 0.5 MCG/DO 00 AM MCG/DOSE Health MG/ACTUAT / SE EDT Care) salmeterol 0.05 MG/ACTUAT Dry Powder Inhaler [Advair] Advair Diskus 500-50 MCG/DOSE 60 ACTUAT Advair .0 active Advair eC W3 Fluticasone Diskus 2020 {puff Diskus (Hu [facility] propionate 500-50 12:00: } 500-50 Joni er 0.5 MCG/DO 00 AM MCG/DOSE Health MG/ACTUAT / SE EDT Care) salmeterol 0.05 MG/ACTUAT Dry Powder Inhaler [Advair] Advair Diskus 500-50 MCG/DOSE 60 ACTUAT Advair .0 active Advair eC W3 Fluticasone Diskus 2020 {puff Diskus (Hu [facility] propionate 500-50 12:00: } 500-50 Joni er 0.5 MCG/DO 00 AM MCG/DOSE Health MG/ACTUAT / SE EDT Care) salmeterol 0.05 MG/ACTUAT Dry Powder Inhaler [Advair] Advair Diskus 500-50 MCG/DOSE 60 ACTUAT Advair .0 active Advair eC W3 Fluticasone Diskus 2020 {puff Diskus (Hu [facility]son propionate 500-50 12:00: } 500-50 Joni er 0.5 MCG/DO 00 AM MCG/DOSE Health MG/ACTUAT / SE EDT Care) salmeterol 0.05 MG/ACTUAT Dry Powder Inhaler [Advair] Advair Diskus 500-50 MCG/DOSE 60 ACTUAT Advair .0 active Advair eC W3 Fluticasone Diskus 2020 {puff Diskus (Hu [facility]son propionate 500-50 12:00: } 500-50 Joni er 0.5 MCG/DO 00 AM MCG/DOSE Health MG/ACTUAT / SE EDT Care) salmeterol 0.05 MG/ACTUAT Dry Powder Inhaler [Advair] Advair Diskus 500-50 MCG/DOSE 60 ACTUAT Advair .0 active Advair eC W3 Fluticasone Diskus 2020 {puff Diskus (Hu [facility] propionate 500-50 12:00: } 500-50 [place] 0.5 MCG/DO 00 AM MCG/DOSE Health MG/ACTUAT / SE EDT Care) salmeterol 0.05 MG/ACTUAT Dry Powder Inhaler [Advair] Advair Diskus 500-50 MCG/DOSE lamotrigine [place] ORAL complet lamotr igine NEXTGEN 200 MG Oral al 200 2019 {tabl ed 200 MG Ora l ([facility] Tablet mg 12:00: et} Tablet [facility] [Lamictal] tablet 00 AM [Lamictal] Medical Lamictal EDT Center) 200 mg tablet aripiprazol Abilif ORAL complet aripip razole NEXTGEN e 10 MG y 10 2019 {tabl ed 10 MG Oral (Lety t Oral Tablet mg 12:00: et} Tablet Faheem phs [Abilify] tablet 00 AM [Abilify] De dical Abilify 10 EDT Center) mg tablet Hydroxyzine Vistar ORAL complet hydrox yzine NEXTGEN Pamoate 50 il 50 2019 {caps ed pamoate 50 ( [facility] MG Oral mg 12:00: ule} MG Oral [facility] Capsule capsul 00 AM Capsule Medica l [Vistaril] e EDT [Vistaril] [place] [facility]) Vistaril 50 mg capsule Foam Foam 09/17/ active Foam eCW3 Dressing - Dressi 2019 Dressing - ( [place] - 12:00: [place] 00 AM Health EDT Care) Foam Foam 09/17/ active Foam eCW3 Dressing - Dressi 2019 Dressing - ( [place] - 12:00: [place] 00 AM Health EDT Care) Mupirocin Mupiro 1.0 active Mupirocin 2 eCW3 0.02 MG/MG john 2 2019 {appl % ([place] Topical % 12:00: icati [place] Ointment 00 AM on_to Health Mupirocin 2 EDT _affe Care) % cted_ area} Foam Foam 09/17/ active Foam eCW3 Dressing - Dressi 2020 Dressing - ( [place] - 12:00: [place] 00 AM Health EDT Care) Mupirocin Mupiro 1.0 active Mupirocin 2 eCW3 0.02 MG/MG john 2 2020 {appl % ([place] Topical % 12:00: icati [place] Ointment 00 AM on_to Health Mupirocin 2 EDT _affe Care) % cted_ area} Foam Foam 09/17/ active Foam eCW3 Dressing - Dressi 2020 Dressing - ( [place] - 12:00: [place] 00 AM Health EDT Care) Mupirocin Mupiro 09/17/ 1.0 active Mupirocin 2 eCW3 0.02 MG/MG john 2 2020 {appl % ([place] Topical % 12:00: icati [place] Ointment 00 AM on_to Health Mupirocin 2 EDT _affe Care) % cted_ area} Mupirocin Mupiro 09/17/ 1.0 active Mupirocin 2 eCW3 0.02 MG/MG john 2 2020 {appl % ([place] [facility] % 12:00: icati [place] Ointment 00 AM on_to Health Mupirocin 2 EDT _affe Care) % cted_ area} Mupirocin Mupiro 09/17/ 1.0 active Mupirocin 2 eCW3 0.02 MG/MG john 2 2020 {appl % ([place] Topical % 12:00: icati [place] Ointment 00 AM on_to Health Mupirocin 2 EDT _affe Care) % cted_ area} Foam Foam 09/17/ active Foam eCW3 Dressing - Dressi 2020 Dressing - ( [place] - 12:00: [place] 00 AM Health EDT Care) Foam Foam 09/17/ active Foam eCW3 Dressing - Dressi 2020 Dressing - ( [place] - 12:00: [place] 00 AM Health EDT Care) Foam Foam 09/17/ active Foam eCW3 Dressing - Dressi 2020 Dressing - ( [place] - 12:00: [place] 00 AM Health EDT Care) Foam Foam 09/17/ active Foam eCW3 Dressing - Dressi 2020 Dressing - ( [place] - 12:00: [place] 00 AM Health EDT Care) Foam Foam 09/17/ active Foam eCW3 Dressing - Dressi 2020 Dressing - ( [place] - 12:00: [place] 00 AM Health EDT Care) Foam Foam 09/17/ active Foam eCW3 Dressing - Dressi 2020 Dressing - ( [place] - 12:00: [place] 00 AM Health EDT Care) Foam Foam 09/17/ active Foam eCW3 Dressing - Dressi 2020 Dressing - ( [place] - 12:00: [place] 00 AM Health EDT Care) Foam Foam 09/17/ active Foam eCW3 Dressing - Dressi 2020 Dressing - ( [place] - 12:00: [place] 00 AM Health EDT Care) Foam Foam 09/17/ active Foam eCW3 Dressing - Dressi 2020 Dressing - ( [place] - 12:00: [place] 00 AM Health EDT Care) Foam Foam 09/17/ active Foam eCW3 Dressing - Dressi 2020 Dressing - ( [place] - 12:00: [place] 00 AM Health EDT Care) Hydroxyzine Vistar ORAL complet Hydrox yzine NEXTGEN Pamoate 50 il 50 2019 {caps ed Pamoate 50 ( [facility] MG Oral mg 12:00: ule} MG Oral [facility] Capsule capsul 00 AM Capsule Medica l [Vistaril] e EDT [Vistaril] [place] [facility]) Vistaril 50 mg capsule aripiprazol Abilif ORAL complet aripip razole NEXTGEN e 10 MG y 10 2019 {tbl} ed 10 MG Oral (Lety t Oral Tablet mg 12:00: Tablet Faheem phs [Abilify] tablet 00 AM [Abilify] De dical Abilify 10 EDT Center) mg tablet lamotrigine [place] ORAL complet lamotr igine NEXTGEN 200 MG Oral al 200 2019 {tbl} ed 200 MG Ora l ([facility] Tablet mg 12:00: Tablet [facility]ria [Lamictal] tablet 00 AM [Lamictal] Medical Lamictal EDT Center) 200 mg tablet Ibuprofen Ibupro 08/13/ active Ibuprofen eCW3 400 MG Oral fen 2020 400 MG ([place] Tablet 400 MG 12:00: [place] 00 AM Health EDT Care) Ibuprofen Ibupro 08/13/ active Ibuprofen eCW3 400 MG Oral fen 2020 400 MG ([place] Tablet 400 MG 12:00: [place] 00 AM Health EDT Care) Ibuprofen Ibupro 08/13/ active Ibuprofen eCW3 400 MG Oral fen 2020 400 MG ([place] Tablet 400 MG 12:00: [place] 00 AM Health EDT Care) Ibuprofen Ibupro 08/13/ active Ibuprofen eCW3 400 MG Oral fen 2020 400 MG ([place] Tablet 400 MG 12:00: [place] 00 AM Health EDT Care) Hydroxyzine Vistar ORAL complet Hydrox yzine NEXTGEN Pamoate 50 il 50 2019 {caps ed Pamoate 50 ( [facility] MG Oral mg 12:00: ule} MG Oral [facility] Capsule capsul 00 AM Capsule Medica l [Vistaril] e EDT [Vistaril] [place] [facility]) Vistaril 50 mg capsule lamotrigine [place] ORAL complet lamotr igine NEXTGEN 200 MG Oral al 200 2019 {tbl} ed 200 MG Ora l ([facility] Tablet mg 12:00: Tablet Patria [Lamictal] tablet 00 AM [Lamictal] Medical Lamictal EDT Center) 200 mg tablet aripiprazol Abilif ORAL complet aripip razole NEXTGEN e 10 MG y 10 2019 {tbl} ed 10 MG Oral (Lety t Oral Tablet mg 12:00: Tablet Faheem phs [Abilify] tablet 00 AM [Abilify] Me dical Abilify 10 EDT Center) mg tablet Underpads - Underp 06/09/ active Underpa ds - eCW3 ads - 2020 ([place] 12:00: [place] 00 AM Health EST Care) Underpads - Underp 06/09/ active Underpa ds - eCW3 ads - 2020 ([place] 12:00: [place] 00 AM Health EST Care) Underpads - Underp 06/09/ active Underpa ds - eCW3 ads - 2020 ([place] 12:00: [place] 00 AM Health EST Care) Underpads - Underp // active Underpa ds - eCW3 ads - 2020 ([place] 12:00: [place] 00 AM Health EST Care) Underpads - Underp // active Underpa ds - eCW3 ads - 2020 ([place]: [place] 00 AM Health EST Care) Underpads - Underp // active Underpa ds - eCW3 ads - 2020 ([place] 12:00: [place] 00 AM Health EST Care) Underpads - Underp 06/09/ active Underpa ds - eCW3 ads - 2020 ([place] 12:00: [place] 00 AM Health EST Care) Underpads - Underp 02/03/ active Underpa ds - eCW3 ads - 2020 ([place] 12:00: [place] 00 AM Health EST Care) Underpads - Underp 02// active Underpa ds - eCW3 ads - 2020 ([place] 12:00: [place] 00 AM Health EST Care) Underpads - Underp 02// active Underpa ds - eCW3 ads - 2020 ([place]: [place] 00 AM Health EST Care) Underpads - Underp 02// active Underpa ds - eCW3 ads - 2020 ([place] 12:00: [place] 00 AM Health EST Care) Underpads - Underp 02// active Underpa ds - eCW3 ads - 2020 ([place]:00: [place] 00 AM Health EST Care) Underpads - Underp 02// active Underpa ds - eCW3 ads - 2020 ([place]: [place] 00 AM Health EST Care) Underpads - Underp 02// active Underpa ds - eCW3 ads - 2020 ([place] 12:00: [place] 00 AM Health EST Care) Underpads - Underp 02// active Underpa ds - eCW3 ads - 2020 ([place] 12:00: [place] 00 AM Health EST Care) Underpads - Underp 02// active Underpa ds - eCW3 ads - 2020 ([place] 12:00: [place] 00 AM Health EST Care) Underpads - Underp // active Underpa ds - eCW3 ads - 2020 ([place] 12:00: [place] 00 AM Health EST Care) Underpads - Underp 02// active Underpa ds - eCW3 ads - 2020 ([place] 12:00: [place] 00 AM Health EST Care) Hydroxyzine Vistar ORAL complet Hydrox yzine NEXTGEN Pamoate 50 il 50 2019 {caps ed Pamoate 50 ( [facility] MG Oral mg 12:00: ule} MG Oral [facility] Capsule capsul 00 AM Capsule Medica l [Vistaril] e EST [Vistaril] [place] [facility]) Vistaril 50 mg capsule lamotrigine [place] ORAL complet lamotr igine NEXTGEN 200 MG Oral al 200 2019 {tbl} ed 200 MG Ora l ([facility] Tablet mg 12:00: Tablet Patria [Lamictal] tablet 00 AM [Lamictal] Medical Lamictal EST Center) 200 mg tablet aripiprazol Abilif ORAL complet aripip razole NEXTGEN e 10 MG y 2019 {tbl} ed 10 MG Oral (Lety t Oral Tablet mg 12:00: Tablet Faheem phs [Abilify] tablet 00 AM [Abilify] [address]) mg tablet Hydroxyzine Vistar ORAL complet Hydrox yzine NEXTGEN Pamoate 50 il 50 2018 {caps ed Pamoate 50 ( [facility] MG Oral mg 12:00: ule} MG Oral [facility]ria Capsule capsul 00 AM Capsule Medica l [Vistaril] e EST [Vistaril] [place] [facility]) Vistaril 50 mg capsule aripiprazol lif ORAL complet aripip razole NEXTGEN e 10 MG y 2018 {tbl} ed 10 MG Oral (Lety t Oral Tablet mg 12:00: Tablet Faheem phs [Abilify] tablet 00 AM [Abilif] [address]) mg tablet lamotrigine [place] ORAL complet lamotr igine NEXTGEN 200 MG Oral al 200 2018 {tbl} ed 200 MG Ora l ([facility] Tablet mg 12:00: Tablet Patria [Lamictal] tablet 00 AM [[facility]) 200 mg tablet aripiprazol Abilif ORAL complet aripip razole NEXTGEN e 10 MG y 2018 {tbl} ed 10 MG Oral (Lety t Oral Tablet mg 12:00: Tablet Faheem phs [Abilify] tablet 00 AM [Abilify] [address]) mg tablet Hydroxyzine Vistar ORAL complet Hydrox yzine NEXTGEN Pamoate 50 il 50 2018 {caps ed Pamoate 50 ( [facility] MG Oral mg 12:00: ule} MG Oral Patria Capsule capsul 00 AM Capsule Medica l [Vistaril] e EDT [Vistaril] [place] [facility]) Vistaril 50 mg capsule lamotrigine [place] ORAL complet lamotr igine NEXTGEN 200 MG Oral al 200 2018 {tbl} ed 200 MG Ora l ([facility] Tablet mg 12:00: Tablet Patria [Lamictal] tablet 00 AM [Lamictal] [facility] Lamictal EDT Center) 200 mg tablet Zinc Oxide Zinc 01/03/ active Zinc Oxide eCW3 0.2 MG/MG Oxide 2018 20 % ([place] Topical 20 % 12:00: [place] Ointment 00 AM Health Zinc Oxide EDT Care) 20 % Zinc Oxide Zinc 01/03/ active Zinc Oxide eCW3 0.2 MG/MG Oxide 2018 20 % ([place] Topical 20 % 12:00: [place] Ointment 00 AM Health Zinc Oxide EDT Care) 20 % Zinc Oxide Zinc 01/03/ active Zinc Oxide eCW3 0.2 MG/MG Oxide 2018 20 % ([place] Topical 20 % 12:00: [place] Ointment 00 AM Health Zinc Oxide EDT Care) 20 % Zinc Oxide Zinc 01/03/ active Zinc Oxide eCW3 0.2 MG/MG Oxide 2018 20 % ([place] Topical 20 % 12:00: [place] Ointment 00 AM Health Zinc Oxide EDT Care) 20 % Zinc Oxide Zinc 01/03/ active Zinc Oxide eCW3 0.2 MG/MG Oxide 2018 20 % ([place] Topical 20 % 12:00: [place] Ointment 00 AM Health Zinc Oxide EDT Care) 20 % lamotrigine [place] ORAL complet lamotr igine NEXTGEN 200 MG Oral al 200 2018 {tbl} ed 200 MG Ora l ([facility] Tablet mg 12:00: Tablet Patria [Lamictal] tablet 00 AM [Lamictal] [facility] Lamictal EDT Center) 200 mg tablet aripiprazol Abilif ORAL complet aripip razole NEXTGEN e 10 MG y 10 2018 {tbl} ed 10 MG Oral (Lety t Oral Tablet mg 12:00: Tablet Faheem phs [Abilify] tablet 00 AM [Abilify] De dical Abilify 10 EDT Center) mg tablet Hydroxyzine Vistar ORAL complet Hydrox yzine NEXTGEN Pamoate 50 il 50 2018 {caps ed Pamoate 50 ( [facility] MG Oral mg 12:00: ule} MG Oral [facility] Capsule capsul 00 AM Capsule Medica l [Vistaril] e EDT [Vistaril] [place] [facility]) Vistaril 50 mg capsule Acetaminoph Acetam 1.0 active Acetami nophe eCW3 en 500 MG inophe 2019 {tabl n 500 mg (Hu dson Oral Tablet n 500 12:00: ets_a [place] r Acetaminoph mg 00 AM s_[facility] en 500 mg EDT ded} Care) Acetaminoph Acetam 1.0 active Acetami nophe eCW3 en 500 MG inophe 2018 {tabl n 500 mg (Hu dson Oral Tablet n 500 12:00: ets_a [place] Acetaminoph mg 00 AM s_[facility] en 500 mg EDT ded} Care) Diclofenac Diclof 11/18/ active Diclofen ac eCW3 Sodium 0.01 2018 Sodium 1 % (H udson MG/MG Sodium 12:00: [facility] Topical Gel 1 % 00 AM Health Diclofenac EDT Care) Sodium 1 % Acetaminoph Acetam 1.0 active Acetami nophe eCW3 en 500 MG inophe 2018 {tabl n 500 mg ([facility] Oral Tablet n 500 12:00: ets_a Rive r Acetaminoph mg 00 AM [facility] en 500 mg EDT ded} Care) Acetaminoph Acetam 1.0 active Acetami nophe eCW3 en 500 MG inophe 2018 {tabl n 500 mg (Hu [facility] Oral Tablet n 500 12:00: ets_a Rive r Acetaminoph mg 00 AM [facility] en 500 mg EDT ded} Care) Acetaminoph Acetam 1.0 active Acetami nophe eCW3 en 500 MG inophe 2018 {tabl n 500 mg ([facility] Oral Tablet n 500 12:00: ets_a Rive r Acetaminoph mg 00 AM [facility] 500 mg EDT ded} Care) Diclofenac Diclof 11/18/ active Diclofen ac eCW3 Sodium 0.01 2018 Sodium 1 % (H udson MG/MG Sodium 12:00: [facility] Topical Gel 1 % 00 AM Health Diclofenac EDT Care) Sodium 1 % Diclofenac Diclof 11/18/ active Diclofen ac eCW3 Sodium 0.01 2018 Sodium 1 % ([facility] MG/MG Sodium 12:00: [facility] Topical Gel 1 % 00 AM Health Diclofenac EDT Care) Sodium 1 % Acetaminoph Acetam 1.0 active Acetami nophe eCW3 en 500 MG inoph2018 {tabl n 500 mg (Hu d[facility] Oral Tablet n 500 12:00: ets_a Rive r Acetaminoph mg 00 AM [facility] en 500 mg EDT ded} Care) Diclofenac Diclof 11/18/ active Diclofen ac eCW3 Sodium 0.01 2018 Sodium 1 % ([facility] MG/MG Sodium 12:00: [facility] Topical Gel 1 % 00 AM Health Diclofenac EDT Care) Sodium 1 % Diclofenac Diclof 11/18/ active Diclofen ac eCW3 Sodium 0.01 2018 Sodium 1 % ([facility] MG/MG Sodium 12:00: [facility] Topical Gel 1 % 00 AM [facility] Diclofenac EDT Care) Sodium 1 % Acetaminoph Acetam 1.0 active Acetami nophe eCW3 en 500 MG inoph2018 {tabl n 500 mg ([facility] d[facility] Oral Tablet n 500 12:00: ets_a Rive r Acetaminoph mg 00 AM [facility] en 500 mg EDT ded} Care) Diclofenac Diclof 11/18/ active Diclofen ac eCW3 Sodium 0.01 2018 Sodium 1 % ([facility] ud[facility] MG/MG Sodium 12:00: [facility] Topical Gel 1 % 00 AM Health Diclofenac EDT Care) Sodium 1 % Diclofenac Diclof 11/18/ active Diclofen ac eCW3 Sodium 0.01 2018 Sodium 1 % ([facility] ud[facility] MG/MG Sodium 12:00: [facility] Topical Gel 1 % 00 AM Health Diclofenac EDT Care) Sodium 1 % Diclofenac Diclof 11/18/ active Diclofen ac eCW3 Sodium 0.01 2018 Sodium 1 % ([facility] ud[facility] MG/MG Sodium 12:00: [facility] Topical Gel 1 % 00 AM Health Diclofenac EDT Care) Sodium 1 % Acetaminoph Acetam 1.0 active Acetami nophe eCW3 en 500 MG inophe 2018 {tabl n 500 mg ([facility] Oral Tablet n 500 12:00: ets_a Rive r Acetaminoph mg 00 AM [facility] en 500 mg EDT ded} Care) Diclofenac Diclof 07/15/ active Diclofen ac eCW3 Sodium 0.01 2018 Sodium 1 % ([facility] MG/MG Sodium 12:00: [facility] Topical Gel 1 % 00 AM Health Diclofenac EDT Care) Sodium 1 % Acetaminoph Acetam 1.0 active Acetami nophe eCW3 en 500 MG inophe 2018 {tabl n 500 mg ([facility] Oral Tablet n 500 12:00: ets_a Rive r Acetaminoph mg 00 AM [facility] en 500 mg EDT ded} Care) Acetaminoph Acetam .0 active Acetami nophe eCW3 en 500 MG inophe 2018 {tabl n 500 mg ([facility] Oral Tablet n 500 12:00: ets_a Rive r Acetaminoph mg 00 AM [facility] en 500 mg EDT ded} Care) Diclofenac Diclof 11/18/ active Diclofen ac eCW3 Sodium 0.01 2018 Sodium 1 % ([facility] ud[facility] MG/MG Sodium 12:00: [facility] Topical Gel 1 % 00 AM Health Diclofenac EDT Care) Sodium 1 % Acetaminoph Acetam .0 active Acetami nophe eCW3 en 500 MG inophe 2018 {tabl n 500 mg ([facility] Oral Tablet n 500 12:00: ets_a Rive r Acetaminoph mg 00 AM [facility] en 500 mg EDT ded} Care) Acetaminoph Acetam 1.0 active Acetami nophe eCW3 en 500 MG inophe 2018 {tabl n 500 mg ([facility] Oral Tablet n 500 12:00: ets_a Rive r Acetaminoph mg 00 AM [facility] en 500 mg EDT ded} Care) Acetaminoph Acetam 1.0 active Acetami nophe eCW3 en 500 MG inophe 2018 {tabl n 500 mg ([facility] d[facility] Oral Tablet n 500 12:00: ets_a Rive r Acetaminoph mg 00 AM [facility] en 500 mg EDT ded} Care) Diclofenac Diclof 11/18/ active Diclofen ac eCW3 Sodium 0.01 2018 Sodium 1 % ([facility] ud[facility] MG/MG Sodium 12:00: [place] Topical Gel 1 % 00 AM Health Diclofenac EDT Care) Sodium 1 % Acetaminoph Acetam 1.0 active Acetami nophe eCW3 en 500 MG inophe 2019 {tabl n 500 mg ([facility] Oral Tablet n 500 12:00: ets_a Rive r Acetaminoph mg 00 AM [facility] en 500 mg EDT ded} Care) Diclofenac Diclof 11/18/ active Diclofen ac eCW3 Sodium 0.01 2018 Sodium 1 % ([facility] ud[facility] MG/MG Sodium 12:00: [place] Topical Gel 1 % 00 AM Health Diclofenac EDT Care) Sodium 1 % Acetaminoph Acetam 1.0 active Acetami nophe eCW3 en 500 MG inophe 2018 {tabl n 500 mg ([facility] Oral Tablet n 500 12:00: ets_a Rive r Acetaminoph mg 00 AM [facility] en 500 mg EDT ded} Care) Acetaminoph Acetam .0 active Acetami nophe eCW3 en 500 MG inophe 2018 {tabl n 500 mg ([facility] d[facility] Oral Tablet n 500 12:00: ets_a Rive r Acetaminoph mg 00 AM [facility] en 500 mg EDT ded} Care) Diclofenac Diclof 11/18/ active Diclofen ac eCW3 Sodium 0.01 2018 Sodium 1 % ([facility] ud[facility] MG/MG Sodium 12:00: [place] Topical Gel 1 % 00 AM Health Diclofenac EDT Care) Sodium 1 % Acetaminoph Acetam 1.0 active Acetami nophe eCW3 en 500 MG inophe 2018 {tabl n 500 mg ([facility] Oral Tablet n 500 12:00: ets_a Rive r Acetaminoph mg 00 AM [facility] en 500 mg EDT ded} Care) Diclofenac Diclof 11/18/ active Diclofen ac eCW3 Sodium 0.01 2018 Sodium 1 % ([facility] ud[facility] MG/MG Sodium 12:00: [place] Topical Gel 1 % 00 AM Health Diclofenac EDT Care) Sodium 1 % Diclofenac Diclof 11/18/ active Diclofen ac eCW3 Sodium 0.01 2018 Sodium 1 % ([facility] MG/MG Sodium 12:00: [place] Topical Gel 1 % 00 AM Health Diclofenac EDT Care) Sodium 1 % Acetaminoph Acetam 1.0 active Acetami nophe eCW3 en 500 MG inophe 2018 {tabl n 500 mg ([facility] Oral Tablet n 500 12:00: ets_a Rive r Acetaminoph mg 00 AM [facility] en 500 mg EDT ded} Care) Acetaminoph Acetam 1.0 active Acetami nophe eCW3 en 500 MG inophe 2018 {tabl n 500 mg ([facility] Oral Tablet n 500 12:00: ets_a Rive r Acetaminoph mg 00 AM [facility] en 500 mg EDT ded} Care) Diclofenac Diclof 11/18/ active Diclofen ac eCW3 Sodium 0.01 enac 2018 Sodium 1 % ([facility] ud[facility] MG/MG Sodium 12:00: [facility] Topical Gel 1 % 00 AM Health Diclofenac EDT Care) Sodium 1 % Diclofenac Diclof 11/18/ active Diclofen ac eCW3 Sodium 0.01 2018 Sodium 1 % ([facility] ud[facility] MG/MG Sodium 12:00: [place] Topical Gel 1 % 00 AM Health Diclofenac EDT Care) Sodium 1 % Acetaminoph Acetam 1.0 active Acetami nophe eCW3 en 500 MG inophe 2018 {tabl n 500 mg ([facility] Oral Tablet n 500 12:00: ets_a Rive r Acetaminoph mg 00 AM [facility] en 500 mg EDT ded} Care) Acetaminoph Acetam 1.0 active Acetami nophe eCW3 en 500 MG inophe 2018 {tabl n 500 mg ([facility] d[facility] Oral Tablet n 500 12:00: ets_a Rive r Acetaminoph mg 00 AM [facility] en 500 mg EDT ded} Care) Diclofenac Diclof 11/18/ active Diclofen ac eCW3 Sodium 0.01 enac 2018 Sodium 1 % (H udson MG/MG Sodium 12:00: [facility] Topical Gel 1 % 00 AM Health Diclofenac EDT Care) Sodium 1 % Diclofenac Diclof 11/18/ active Diclofen ac eCW3 Sodium 0.01 2018 Sodium 1 % ([facility] ud[facility] MG/MG Sodium 12:00: [place] Topical Gel 1 % 00 AM Health Diclofenac EDT Care) Sodium 1 % Diclofenac Diclof 11/18/ active Diclofen ac eCW3 Sodium 0.01 2018 Sodium 1 % (H udson MG/MG Sodium 12:00: [place] Topical Gel 1 % 00 AM [facility] Diclofenac EDT Care) Sodium 1 % Diclofenac Diclof 11/18/ active Diclofen ac eCW3 Sodium 0.01 2018 Sodium 1 % (H udson MG/MG Sodium 12:00: [facility] Topical Gel 1 % 00 AM Health Diclofenac EDT Care) Sodium 1 % Diclofenac Diclof 11/18/ active Diclofen ac eCW3 Sodium 0.01 2018 Sodium 1 % (H udson MG/MG Sodium 12:00: [place] Topical Gel 1 % 00 AM [facility] Diclofenac EDT Care) Sodium 1 % Diclofenac Diclof 11/18/ active Diclofen ac eCW3 Sodium 0.01 2018 Sodium 1 % (H udson MG/MG Sodium 12:00: [place] Topical Gel 1 % 00 AM [facility] Diclofenac EDT Care) Sodium 1 % Acetaminoph Acetam .0 active Acetami nophe eCW3 en 500 MG inophe 2018 {tabl n 500 mg (Hu dson Oral Tablet n 500 12:00: ets_a Rive r Acetaminoph mg 00 AM [facility] en 500 mg EDT ded} Care) Acetaminoph Acetam .0 active Acetami nophe eCW3 en 500 MG inophe 2019 {tabl n 500 mg (Hu dson Oral Tablet n 500 12:00: ets_a Rive r Acetaminoph mg 00 AM [facility] en 500 mg EDT ded} Care) lamotrigine [place] ORAL active lamotri gine NEXTGEN 200 MG Oral al 200 2018 {tbl} 200 MG Ora l ([facility] Tablet mg 12:00: Tablet Patria [Lamictal] tablet 00 AM [Lamictal] Medical Lamictal EDT Center) 200 mg tablet Hydroxyzine Vistar ORAL active Hydroxy zine NEXTGEN Pamoate 50 il 50 2018 {caps Pamoate 50 ( [facility] MG Oral mg 12:00: ule} MG Oral [facility]ria Capsule capsul 00 AM Capsule Medica l [Vistaril] e EDT [Vistaril] [place] [facility]) Vistaril 50 mg capsule aripiprazol Abilif ORAL active aripipr azole NEXTGEN e 10 MG y 2018 {tbl} 10 MG Oral (Lety t Oral Tablet mg 12:00: Tablet Faheem phs [Abilify] tablet 00 AM [Abilify] Me shaheed Abilify 10 EDT Center) mg tablet Disposable Dispos 10/17/ active Disposab le eCW3 Liners - able 2019 Liners - ([place] Liners 12:00: [facility] - 00 AM Health EDT Care) Disposable Dispos 10/17/ active Disposab le eCW3 Liners - able 2019 Liners - ([place] [facility] 12:00: [facility] - 00 AM Health EDT Care) Disposable Dispos 10/17/ active Disposab le eCW3 Liners - able 2019 Liners - ([place] [facility] 12:00: [place] - 00 AM Health EDT Care) Disposable Dispos 10/17/ active Disposab le eCW3 Liners - able 2019 Liners - ([place] [facility] 12:00: [place] - 00 AM Health EDT Care) Disposable Dispos 10/17/ active Disposab le eCW3 Liners - able 2019 Liners - ([place] [facility] 12:00: [place] - 00 AM Health EDT Care) Disposable Dispos 10/17/ active Disposab le eCW3 Liners - able 2019 Liners - ([place] [facility] 12:00: [place] - 00 AM Health EDT Care) Disposable Dispos 10/17/ active Disposab le eCW3 Liners - able 2019 Liners - ([place] [facility] 12:00: [place] - 00 AM Health EDT Care) Disposable Dispos 10/17/ active Disposab le eCW3 Liners - able 2019 Liners - ([place] [facility] 12:00: [place] - 00 AM Health EDT Care) Disposable Dispos 10/17/ active Disposab le eCW3 Liners - able 2019 Liners - ([place] [facility] 12:00: [place] - 00 AM Health EDT Care) Disposable Dispos 10/17/ active Disposab le eCW3 Liners - able 2019 Liners - ([place] [facility] 12:00: [place] - 00 AM Health EDT Care) Disposable Dispos 10/17/ active Disposab le eCW3 Liners - able 2019 Liners - ([place] [facility] 12:00: [place] - 00 AM Health EDT Care) Disposable Dispos 10/17/ active Disposab le eCW3 Liners - able 2019 Liners - ([place] [facility] 12:00: [place] - 00 AM Health EDT Care) Disposable Dispos 10/17/ active Disposab le eCW3 Liners - able 2019 Liners - ([place] [facility] 12:00: [place] - 00 AM Health EDT Care) Disposable Dispos 10/17/ active Disposab le eCW3 Liners - able 2019 Liners - ([place] [facility] 12:00: [place] - 00 AM Health EDT Care) Disposable Dispos 10/17/ active Disposab le eCW3 Liners - able 2019 Liners - ([place] [facility] 12:00: [place] - 00 AM Health EDT Care) Disposable Dispos 10/17/ active Disposab le eCW3 Liners - able 2019 Liners - ([place] [facility] 12:00: [place] - 00 AM Health EDT Care) Disposable Dispos 10/17/ active Disposab le eCW3 Liners - able 2019 Liners - ([place] [facility] 12:00: [facility] - 00 AM Health EDT Care) Disposable Dispos 10/17/ active Disposab le eCW3 Liners - able 2019 Liners - ([place] [facility] 12:00: [place] - 00 AM Health EDT Care) Disposable Dispos 10/17/ active Disposab le eCW3 Liners - able 2019 Liners - ([place] [facility] 12:00: [place] - 00 AM Health EDT Care) Disposable Dispos 10/17/ active Disposab le eCW3 Liners - able 2019 Liners - ([place] [facility] 12:00: [place] - 00 AM Health EDT Care) Disposable Dispos 10/17/ active Disposab le eCW3 Liners - able 2019 Liners - ([place] [facility] 12:00: [place] - 00 AM Health EDT Care) Disposable Dispos 10/17/ active Disposab le eCW3 Liners - able 2019 Liners - ([place] [facility] 12:00: [place] - 00 AM Health EDT Care) Disposable Dispos 10/17/ active Disposab le eCW3 Liners - able 2019 Liners - ([place] [facility] 12:00: [place] - 00 AM Health EDT Care) Disposable Dispos 10/17/ active Disposab le eCW3 Liners - able 2019 Liners - ([place] [facility] 12:00: [place] - 00 AM Health EDT Care) Hydroxyzine Vistar ORAL complet Hydrox yzine NEXTGEN Pamoate 50 il 50 2018 {caps ed Pamoate 50 ( [facility] MG Oral mg 12:00: ule} MG Oral Patria Capsule capsul 00 AM Capsule Medica l [Vistaril] e EDT [Vistaril] [place] [facility]) Vistaril 50 mg capsule aripiprazol Abilif ORAL complet aripip razole NEXTGEN e 10 MG y 10 2018 {tbl} ed 10 MG Oral (Lety t Oral Tablet mg 12:00: Tablet Faheem phs [Abilify] tablet 00 AM [Abilify] Me dical Abilify 10 EDT Center) mg tablet lamotrigine [place] ORAL complet lamotr igine NEXTGEN 200 MG Oral al 200 2018 {tbl} ed 200 MG Ora l ([facility] Tablet mg 12:00: Tablet Patria [Lamictal] tablet 00 AM [Lamictal] Medical Lamictal EDT Center) 200 mg tablet Disposable Dispos 07/15/ active Disposab le eCW3 [facility]ers - able 2019 Liners - ([place] [facility] 12:00: [facility] - 00 AM Health EDT Care) Disposable Dispos 07/15/ active Disposab le eCW3 Liners - able 2018 Liners - ([place] [facility] 12:00: [place] - 00 AM Health EDT Care) Disposable Dispos 07/15/ active Disposab le eCW3 Liners - able 2018 Liners - ([place] [facility] 12:00: [place] - 00 AM Health EDT Care) Disposable Dispos 07/15/ active Disposab le eCW3 Liners - able 2018 Liners - ([place] [facility] 12:00: [facility] - 00 AM Health EDT Care) Disposable Dispos 07/15/ active Disposab le eCW3 [facility] - able 2018 Liners - ([place] [facility] 12:00: [facility] - 00 AM Health EDT Care) Disposable Dispos 07/15/ active Disposab le eCW3 Liners - able 2019 Liners - ([place] [facility] 12:00: [facility] - 00 AM Health EDT Care) Disposable Dispos 07/15/ active Disposab le eCW3 Liners - able 2019 Liners - ([place] [facility] 12:00: [place] - 00 AM Health EDT Care) Disposable Dispos 07/15/ active Disposab le eCW3 Liners - able 2019 Liners - ([place] [facility] 12:00: [place] - 00 AM Health EDT Care) Disposable Dispos 07/15/ active Disposab le eCW3 [facility]ers - able 2019 Liners - ([place] [facility] 12:00: [place] - 00 AM Health EDT Care) Disposable Dispos 07/15/ active Disposab le eCW3 Liners - able 2019 Liners - ([place] [facility] 12:00: [place] - 00 AM Health EDT Care) Disposable Dispos 07/15/ active Disposab le eCW3 Liners - able 2019 Liners - ([place] [facility] 12:00: [place] - 00 AM Health EDT Care) Disposable Dispos 07/15/ active Disposab le eCW3 Liners - able 2019 Liners - ([place] [facility] 12:00: [place] - 00 AM Health EDT Care) Disposable Dispos 07/15/ active Disposab le eCW3 [facility]ers - able 2019 Liners - ([place] [facility] 12:00: [place] - 00 AM Health EDT Care) Disposable Dispos 07/15/ active Disposab le eCW3 Liners - able 2019 Liners - ([place] [facility] 12:00: [place] - 00 AM Health EDT Care) Disposable Dispos 07/15/ active Disposab le eCW3 Liners - able 2019 Liners - ([place] [facility] 12:00: [place] - 00 AM Health EDT Care) Disposable Dispos 07/15/ active Disposab le eCW3 Liners - able 2019 Liners - ([place] [facility] 12:00: [place] - 00 AM Health EDT Care) Disposable Dispos 07/15/ active Disposab le eCW3 Liners - able 2019 Liners - ([place] [facility] 12:00: [place] - 00 AM Health EDT Care) Disposable Dispos 07/15/ active Disposab le eCW3 Liners - able 2019 Liners - ([place] [facility] 12:00: [place] - 00 AM Health EDT Care) Disposable Dispos 07/15/ active Disposab le eCW3 Liners - able 2019 Liners - ([place] [facility] 12:00: [place] - 00 AM Health EDT Care) Disposable Dispos 07/15/ active Disposab le eCW3 [facility]ers - able 2019 Liners - ([place] [facility] 12:00: [place] - 00 AM Health EDT Care) Disposable Dispos 07/15/ active Disposab le eCW3 [facility] - able 2019 Liners - ([place] [facility] 12:00: [place] - 00 AM Health EDT Care) Disposable Dispos 07/15/ active Disposab le eCW3 [facility] - able 2019 Liners - ([place] [facility] 12:00: [place] - 00 AM Health EDT Care) Disposable Dispos 07/15/ active Disposab le eCW3 [facility] - able 2018 Liners - ([place] [facility] 12:00: [place] - 00 AM Health EDT Care) Disposable Dispos 07/15/ active Disposab le eCW3 [facility] - able 2019 Liners - ([place] [facility] 12:00: [place] - 00 AM Health EDT Care) Disposable Dispos 07/15/ active Disposab le eCW3 [facility] - able 2018 Liners - ([place] [facility] 12:00: [facility] - 00 AM Health EDT Care) Disposable Dispos 07/15/ active Disposab le eCW3 [facility] - able 2018 Liners - ([place] [facility] 12:00: [place] - 00 AM Health EDT Care) Chantix Chanti 06/03/ active Chantix eCW 3 Starting x 2018 Starting ([facility] Starti 12:00: Month Willam R iver 0.5 MG X 11 ng 00 AM 0.5 MG X 11 Health & 1 MG X 42 Month EST & 1 MG X 42 Care) Willam 0.5 MG X 11 & 1 MG X 42 Chantix Chanti 06/03/ active Chantix eCW 3 Starting x 2018 Starting ([facility] Starti 12:00: [place] R iver 0.5 MG X 11 ng 00 AM 0.5 MG X 11 Health & 1 MG X 42 Month EST & 1 MG X 42 Care) Willam 0.5 MG X 11 & 1 MG X 42 Chantix Chanti 06/03/ active Chantix eCW 3 Starting x 2018 Starting ([facility] Starti 12:00: Month [place] R iver 0.5 MG X 11 ng 00 AM 0.5 MG X 11 Health & 1 MG X 42 Month EST & 1 MG X 42 Care) Willam 0.5 MG X 11 & 1 MG X 42 Chantix Chanti 06/03/ active Chantix eCW 3 Starting x 2018 Starting ([facility] Starti 12:00: Month [place] R iver 0.5 MG X 11 ng 00 AM 0.5 MG X 11 Health & 1 MG X 42 Month EST & 1 MG X 42 Care) Willam 0.5 MG X 11 & 1 MG X 42 Chantix Chanti 06/03/ active Chantix eCW 3 Starting x 2018 Starting ([facility] [place] Starti 12:00: Month [place] R iver 0.5 MG X 11 ng 00 AM 0.5 MG X 11 Health & 1 MG X 42 Month EST & 1 MG X 42 Care) Willam 0.5 MG X 11 & 1 MG X 42 Chantix Chanti 06/03/ active Chantix eCW 3 Starting x 2018 Starting ([facility] Starti 12:00: Month [place] R iver 0.5 MG X 11 ng 00 AM 0.5 MG X 11 Health & 1 MG X 42 Month EST & 1 MG X 42 Care) [place]am 0.5 MG X 11 & 1 MG X 42 Chantix Chanti 06/03/ active Chantix eCW 3 Starting x 2018 Starting ([facility] Starti 12:00: Month [place] R iver 0.5 MG X 11 ng 00 AM 0.5 MG X 11 Health & 1 MG X 42 Month EST & 1 MG X 42 Care) Willam 0.5 MG X 11 & 1 MG X 42 Chantix Chanti 06/03/ active Chantix eCW 3 Starting x 2018 Starting ([facility] [place] Starti 12:00: Month [place] R iver 0.5 MG X 11 ng 00 AM 0.5 MG X 11 Health & 1 MG X 42 Month EST & 1 MG X 42 Care) Willam 0.5 MG X 11 & 1 MG X 42 Chantix Chanti 06/03/ active Chantix eCW 3 Starting x 2018 Starting ([facility] Starti 12:00: Month [place] R iver 0.5 MG X 11 ng 00 AM 0.5 MG X 11 Health & 1 MG X 42 Month EST & 1 MG X 42 Care) [place]am 0.5 MG X 11 & 1 MG X 42 Chantix Chanti 06/03/ active Chantix eCW 3 Starting x 2018 Starting ([facility] Starti 12:00: Month [place] R iver 0.5 MG X 11 ng 00 AM 0.5 MG X 11 Health & 1 MG X 42 Month EST & 1 MG X 42 Care) [place]am 0.5 MG X 11 & 1 MG X 42 Chantix Chanti 06/03/ active Chantix eCW 3 Starting x 2018 Starting ([facility] Starti 12:00: Month [place] R iver 0.5 MG X 11 ng 00 AM 0.5 MG X 11 Health & 1 MG X 42 Month EST & 1 MG X 42 Care) [place]am 0.5 MG X 11 & 1 MG X 42 Chantix Chanti 06/03/ active Chantix eCW 3 Starting x 2018 Starting ([facility] Starti 12:00: Month [place] R iver 0.5 MG X 11 ng 00 AM 0.5 MG X 11 Health & 1 MG X 42 Month EST & 1 MG X 42 Care) [place]am 0.5 MG X 11 & 1 MG X 42 Chantix Chanti 06/03/ active Chantix eCW 3 Starting x 2018 Starting ([facility] Starti 12:00: Month [place] R iver 0.5 MG X 11 ng 00 AM 0.5 MG X 11 Health & 1 MG X 42 Month EST & 1 MG X 42 Care) [place]am 0.5 MG X 11 & 1 MG X 42 Chantix Chanti 06/03/ active Chantix eCW 3 Starting x 2018 Starting ([facility] Starti 12:00: Month [place] R iver 0.5 MG X 11 ng 00 AM 0.5 MG X 11 Health & 1 MG X 42 Month EST & 1 MG X 42 Care) [place]am 0.5 MG X 11 & 1 MG X 42 Chantix Chanti 06/03/ active Chantix eCW 3 Starting 2018 Starting ([facility] Starti 12:00: Month [place] R iver 0.5 MG X 11 ng 00 AM 0.5 MG X 11 Health & 1 MG X 42 Month EST & 1 MG X 42 Care) [place]am 0.5 MG X 11 & 1 MG X 42 Chantix Chanti 06/03/ active Chantix eCW 3 Starting x 2018 Starting ([facility] [place] Starti 12:00: Month [place] R iver 0.5 MG X 11 ng 00 AM 0.5 MG X 11 Health & 1 MG X 42 Month EST & 1 MG X 42 Care) [place]am 0.5 MG X 11 & 1 MG X 42 Chantix Chanti 06/03/ active Chantix eCW 3 Starting x 2018 Starting ([facility] [place] Starti 12:00: Month [place] R iver 0.5 MG X 11 ng 00 AM 0.5 MG X 11 Health & 1 MG X 42 Month EST & 1 MG X 42 Care) [place]am 0.5 MG X 11 & 1 MG X 42 Chantix Chanti 06/03/ active Chantix eCW 3 Starting x 2018 Starting ([facility] [place] Starti 12:00: Month [place] R iver 0.5 MG X 11 ng 00 AM 0.5 MG X 11 Health & 1 MG X 42 Month EST & 1 MG X 42 Care) [place]am 0.5 MG X 11 & 1 MG X 42 Chantix Chanti 06/03/ active Chantix eCW 3 Starting 2018 Starting ([facility] [place] Starti 12:00: Month [place] R iver 0.5 MG X 11 ng 00 AM 0.5 MG X 11 Health & 1 MG X 42 Month EST & 1 MG X 42 Care) [place]am 0.5 MG X 11 & 1 MG X 42 Chantix Chanti 06/03/ active Chantix eCW 3 Starting 2018 Starting ([facility] [place] Starti 12:00: Month [place] R iver 0.5 MG X 11 ng 00 AM 0.5 MG X 11 Health & 1 MG X 42 Month EST & 1 MG X 42 Care) [place]am 0.5 MG X 11 & 1 MG X 42 Chantix Chanti 06/03/ active Chantix eCW 3 Starting x 2018 Starting ([facility] [place] Starti 12:00: Month [place] R iver 0.5 MG X 11 ng 00 AM 0.5 MG X 11 Health & 1 MG X 42 Month EST & 1 MG X 42 Care) [place]am 0.5 MG X 11 & 1 MG X 42 Chantix Chanti 06/03/ active Chantix eCW 3 Starting x 2018 Starting ([facility] [place] Starti 12:00: Month [place] R iver 0.5 MG X 11 ng 00 AM 0.5 MG X 11 Health & 1 MG X 42 Month EST & 1 MG X 42 Care) [place]am 0.5 MG X 11 & 1 MG X 42 Chantix Chanti 06/03/ active Chantix eCW 3 Starting x 2018 Starting ([facility] [place] Starti 12:00: Month [place] R iver 0.5 MG X 11 ng 00 AM 0.5 MG X 11 Health & 1 MG X 42 Month EST & 1 MG X 42 Care) [place]am 0.5 MG X 11 & 1 MG X 42 Chantix Chanti 06/03/ active Chantix eCW 3 Starting x 2018 Starting ([place] Starti 12:00: Month Willam R iver 0.5 MG X 11 ng 00 AM 0.5 MG X 11 Health & 1 MG X 42 Month EST & 1 MG X 42 Care) [place]am 0.5 MG X 11 & 1 MG X 42 Chantix Chanti 06/03/ active Chantix eCW 3 Starting x 2018 Starting ([facility] [place] Starti 12:00: Month [place] R iver 0.5 MG X 11 ng 00 AM 0.5 MG X 11 Health & 1 MG X 42 Month EST & 1 MG X 42 Care) [place]am 0.5 MG X 11 & 1 MG X 42 Chantix Chanti 06/03/ active Chantix eCW 3 Starting x 2018 Starting ([facility] Starti 12:00: Month [place] R iver 0.5 MG X 11 ng 00 AM 0.5 MG X 11 Health & 1 MG X 42 Month EST & 1 MG X 42 Care) [place] 0.5 MG X 11 & 1 MG X 42 Commode - Commod 05/15/ active Commode - eCW3 e - 2019 ([place] 12:00: [place] 00 AM Health EST Care) Commode - Commod 05/15/ active Commode - eCW3 e - 2019 ([place] 12:00: [place] 00 AM Health EST Care) Commode - Commod 05/15/ active Commode - eCW3 e - 2019 ([place] 12:00: [place] 00 AM Health EST Care) Commode - Commod 05/15/ active Commode - eCW3 e - 2019 ([place] 12:00: [place] 00 AM Health EST Care) Commode - Commod 05/15/ active Commode - eCW3 e - 2019 ([place] 12:00: [place] 00 AM Health EST Care) Commode - Commod 05/15/ active Commode - eCW3 e - 2019 ([place] 12:00: [place] 00 AM Health EST Care) Commode - Commod 05/15/ active Commode - eCW3 e - 2019 ([place] 12:00: [place] 00 AM Health EST Care) Commode - Commod 05/15/ active Commode - eCW3 e - 2019 ([place] 12:00: [place] 00 AM Health EST Care) Commode - Commod 05/15/ active Commode - eCW3 e - 2019 ([place] 12:00: [place] 00 AM Health EST Care) Commode - Commod 05/15/ active Commode - eCW3 e - 2019 ([place] 12:00: [place] 00 AM Health EST Care) Commode - Commod 05/15/ active Commode - eCW3 e - 2019 ([place] 12:00: [place] 00 AM Health EST Care) Commode - Commod 05/15/ active Commode - eCW3 e - 2019 ([place] 12:00: [place] 00 AM Health EST Care) Commode - Commod 05/15/ active Commode - eCW3 e - 2019 ([place] 12:00: [place] 00 AM Health EST Care) Commode - Commod 05/15/ active Commode - eCW3 e - 2019 ([place] 12:00: [place] 00 AM Health EST Care) Commode - Commod 05/15/ active Commode - eCW3 e - 2019 ([place] 12:00: [place] 00 AM Health EST Care) Commode - Commod 05/15/ active Commode - eCW3 e - 2019 ([place] 12:00: [place] [facility]) Commode - Commod 05/15/ active Commode - eCW3 e - 2019 ([place] 12:00: [place] [facility]) Commode - Commod 05/15/ active Commode - eCW3 e - 2019 ([place] 12:00: [place] [facility]) Commode - Commod 05/15/ active Commode - eCW3 e - 2019 ([place]:00: [place] [facility]) Commode - Commod 05/15/ active Commode - eCW3 e - 2019 ([place] 12:00: [place] [facility]) Commode - Commod 05/15/ active Commode - eCW3 e - 2019 ([place] 12:00: [place] [facility]) Commode - Commod 05/15/ active Commode - eCW3 e - 2019 ([place] 12:00: [place] [facility]) Commode - Commod 05/15/ active Commode - eCW3 e - 2019 ([place] 12:00: [place] [facility]) Commode - Commod 05/15/ active Commode - eCW3 e - 2019 ([place] 12:00: [place] [facility]) Commode - Commod 05/15/ active Commode - eCW3 e - 2019 ([place] 12:00: [place] [facility]) Commode - Commod 05/15/ active Commode - eCW3 e - 2019 ([place] 12:00: [place] 00 AM [facility] EST Care) Toilet Seat Toilet 05/11/ active Toilet Seat eCW3 Elevator - Seat 2019 Elevator - ([place] Elevat 12:00: [place] or - 00 AM Health EST Care) Toilet Seat Toilet 05/11/ active Toilet Seat eCW3 Elevator - Seat 2019 Elevator - ([place] Elevat 12:00: [place] or - 00 AM Health EST Care) Toilet Seat Toilet 05/11/ active Toilet Seat eCW3 Elevator - Seat 2019 Elevator - ([place] Elevat 12:00: [place] or - 00 AM Health EST Care) Toilet Seat Toilet 05/11/ active Toilet Seat eCW3 Elevator - Seat 2019 Elevator - ([place] Elevat 12:00: [place] or - 00 AM Health EST Care) Toilet Seat Toilet 05/11/ active Toilet Seat eCW3 Elevator - Seat 2019 Elevator - ([place] Elevat 12:00: [place] or - 00 AM Health EST Care) Toilet Seat Toilet 05/11/ active Toilet Seat eCW3 Elevator - Seat 2019 Elevator - ([place] Elevat 12:00: [place] or - 00 AM Health EST Care) Toilet Seat Toilet 05/11/ active Toilet Seat eCW3 Elevator - Seat 2019 Elevator - ([place] Elevat 12:00: [place] or - 00 AM Health EST Care) Toilet Seat Toilet 05/11/ active Toilet Seat eCW3 Elevator - Seat 2019 Elevator - ([place] Elevat 12:00: [place] or - 00 AM Health EST Care) Toilet Seat Toilet 05/11/ active Toilet Seat eCW3 Elevator - Seat 2019 Elevator - ([place] Elevat 12:00: [place] or - 00 AM Health EST Care) Toilet Seat Toilet 05/11/ active Toilet Seat eCW3 Elevator - Seat 2019 Elevator - ([place] Elevat 12:00: [place] or - 00 AM Health EST Care) Toilet Seat Toilet 05/11/ active Toilet Seat eCW3 Elevator - Seat 2019 Elevator - ([place] Elevat 12:00: [place] or - 00 AM Health EST Care) Toilet Seat Toilet 05/11/ active Toilet Seat eCW3 Elevator - Seat 2019 Elevator - ([place] Elevat 12:00: [place] or - 00 AM Health EST Care) Toilet Seat Toilet 05/11/ active Toilet Seat eCW3 Elevator - Seat 2019 Elevator - ([place] Elevat 12:00: [place] or - 00 AM Health EST Care) Toilet Seat Toilet 05/11/ active Toilet Seat eCW3 Elevator - Seat 2019 Elevator - ([place] Elevat 12:00: [place] or - 00 AM Health EST Care) Toilet Seat Toilet 05/11/ active Toilet Seat eCW3 Elevator - Seat 2019 Elevator - ([place] Elevat 12:00: [place] or - 00 AM Health EST Care) Toilet Seat Toilet 05/11/ active Toilet Seat eCW3 Elevator - Seat 2019 Elevator - ([place] Elevat 12:00: [place] or - 00 AM Health EST Care) Toilet Seat Toilet 05/11/ active Toilet Seat eCW3 Elevator - Seat 2019 Elevator - ([place] Elevat 12:00: [place] or - 00 AM Health EST Care) Toilet Seat Toilet 05/11/ active Toilet Seat eCW3 Elevator - Seat 2019 Elevator - ([place] Elevat 12:00: [place] or - 00 AM Health EST Care) Toilet Seat Toilet 05/11/ active Toilet Seat eCW3 Elevator - Seat 2019 Elevator - ([place] Elevat 12:00: [place] or - 00 AM Health EST Care) Toilet Seat Toilet 05/11/ active Toilet Seat eCW3 Elevator - Seat 2019 Elevator - ([place] Elevat 12:00: [place] or - 00 AM Health EST Care) Toilet Seat Toilet 05/11/ active Toilet Seat eCW3 Elevator - Seat 2019 Elevator - ([place] Elevat 12:00: [place] or - 00 AM Health EST Care) Toilet Seat Toilet 05/11/ active Toilet Seat eCW3 Elevator - Seat 2019 Elevator - ([place] Elevat 12:00: [place] or - 00 AM Health EST Care) Toilet Seat Toilet 05/11/ active Toilet Seat eCW3 Elevator - Seat 2019 Elevator - ([place] Elevat 12:00: [place] or - 00 AM Health EST Care) Toilet Seat Toilet 05/11/ active Toilet Seat eCW3 Elevator - Seat 2019 Elevator - ([place] Elevat 12:00: [place] or - 00 AM Health EST Care) Toilet Seat Toilet 05/11/ active Toilet Seat eCW3 Elevator - Seat 2019 Elevator - ([place] Elevat 12:00: [place] or - 00 AM Health EST Care) Toilet Seat Toilet 05/11/ active Toilet Seat eCW3 Elevator - Seat 2019 Elevator - ([place] Elevat 12:00: [place] or - 00 AM Health EST Care) ROLLATOR UNK 04/19/ active ROLLATOR eCW 3 2017 ([place] 12:00: [place] 00 AM [facility] EST Care) ROLLATOR UNK 04/19/ active ROLLATOR eCW 3 2017 ([place] 12:00: [place] 00 AM [facility] EST Care) ROLLATOR UNK 1214/ active ROLLATOR eCW 3 2018 ([place] 12:00: [place] 00 AM [facility] EST Care) ROLLATOR UNK 04/19/ active ROLLATOR eCW 3 2017 ([place] 12:00: [place] 00 AM [facility] EST Care) ROLLATOR UNK 14/ active ROLLATOR eCW 3 2018 ([place] 12:00: [place] 00 AM [facility] EST Care) ROLLATOR UNK 04/19/ active ROLLATOR eCW 3 2017 ([place] 12:00: [place] 00 AM [facility] EST Care) ROLLATOR UNK 12/14/ active ROLLATOR eCW 3 2018 ([place] 12:00: [place] 00 AM [facility] EST Care) ROLLATOR UNK 12/14/ active ROLLATOR eCW 3 2018 ([place] 12:00: [place] 00 AM [facility] EST Care) ROLLATOR UNK 12/14/ active ROLLATOR eCW 3 2018 ([place] 12:00: [place] 00 AM [facility] EST Care) ROLLATOR UNK 12/14/ active ROLLATOR eCW 3 2018 ([place] 12:00: [place] 00 AM [facility] EST Care) ROLLATOR UNK 12/14/ active ROLLATOR eCW 3 2018 ([place] 12:00: [place] 00 AM [facility] EST Care) ROLLATOR UNK 12/14/ active ROLLATOR eCW 3 2018 ([place] 12:00: [place] 00 AM [facility] EST Care) ROLLATOR UNK 12/14/ active ROLLATOR eCW 3 2018 ([place] 12:00: [place] 00 AM [facility] EST Care) ROLLATOR UNK 12/14/ active ROLLATOR eCW 3 2018 ([place] 12:00: [place] 00 AM [facility] EST Care) ROLLATOR UNK 12/14/ active ROLLATOR eCW 3 2018 ([place] 12:00: [place] 00 AM [facility] EST Care) ROLLATOR UNK 12/14/ active ROLLATOR eCW 3 2018 ([place] 12:00: [place] 00 AM [facility] EST Care) ROLLATOR UNK 12/14/ active ROLLATOR eCW 3 2018 ([place] 12:00: [place] 00 AM [facility] EST Care) ROLLATOR UNK 12/14/ active ROLLATOR eCW 3 2018 ([place] 12:00: [place] 00 AM [facility] EST Care) ROLLATOR UNK 12/14/ active ROLLATOR eCW 3 2018 ([place] 12:00: [place] 00 AM [facility] EST Care) ROLLATOR UNK 12/14/ active ROLLATOR eCW 3 2018 ([place] 12:00: [place] 00 AM [facility] EST Care) ROLLATOR UNK 12/14/ active ROLLATOR eCW 3 2018 ([place] 12:00: [place] 00 AM [facility] EST Care) ROLLATOR UNK 12/14/ active ROLLATOR eCW 3 2018 ([place] 12:00: [place] 00 AM [facility] EST Care) ROLLATOR UNK 12/14/ active ROLLATOR eCW 3 2018 ([place] 12:00: [place] 00 AM [facility] EST Care) ROLLATOR UNK 12/14/ active ROLLATOR eCW 3 2018 ([place] 12:00: [place] 00 AM [facility] EST Care) ROLLATOR UNK 04/19/ active ROLLATOR eCW 3 2018 ([place] 12:00: [place] 00 AM [facility] EST Care) ROLLATOR UNK 04/19/ active ROLLATOR eCW 3 2018 ([place] 12:00: [place] 00 AM [facility] EST Care) Cyanocobala UNK 03/04/ 1.0 active Cyanocoba aguero eCW3 min 1000 2018 {tabl in 1000 MCG ([facility] MCG 12:00: et} [place] 00 AM [facility] EDT Care) Nicotine 4 Nicore 0316/ active Nicorett e 4 eCW3 MG Chewing tte 4 2018 MG ([place] Gum MG 12:00: [place] [[place]] 00 AM Health [place] 4 EDT Care) MG Nicotine 4 Nicore 03/16/ active Nicorett e 4 eCW3 MG Chewing tte 4 2018 MG ([place] Gum MG 12:00: [place] [[place]] 00 AM Health [place] 4 EDT Care) MG Nicotine 4 Nicore 0316/ active Nicorett e 4 eCW3 MG Chewing tte 4 2018 MG ([place] Gum MG 12:00: [place] [[place]] 00 AM Health [place] 4 EDT Care) MG Nicotine 4 Nicore 16/ active Nicorett e 4 eCW3 MG Chewing tte 4 2018 MG ([place] Gum MG 12:00: [place] [[place]] 00 AM Health [place] 4 EDT Care) MG Nicotine 4 Nicore 16/ active Nicorett e 4 eCW3 MG Chewing tte 4 2018 MG ([place] Gum MG 12:00: [place] [[place]] 00 AM Health [place] 4 EDT Care) MG Nicotine 4 Nicore 16/ active Nicorett e 4 eCW3 MG Chewing tte 4 2018 MG ([place] Gum MG 12:00: [place] [[place]] 00 AM Health [place] 4 EDT Care) MG Nicotine 4 Nicore 03/16/ active Nicorett e 4 eCW3 MG Chewing tte 4 2018 MG ([place] Gum MG 12:00: [place] [[place]] 00 AM Health [place] 4 EDT Care) MG Nicotine 4 Nicore 03/16/ active Nicorett e 4 eCW3 MG Chewing tte 4 2018 MG ([place] Gum MG 12:00: [place] [[place]] 00 AM Health [place] 4 EDT Care) MG Nicotine 4 Nicore 07/20/ active Nicorett e 4 eCW3 MG Chewing tte 4 2018 MG ([place] Gum MG 12:00: [place] [[place]] 00 AM Health [place] 4 EDT Care) MG Nicotine 4 Nicore 07/20/ active Nicorett e 4 eCW3 MG Chewing tte 4 2018 MG ([place] Gum MG 12:00: [place] [[place]] 00 AM Health [place] 4 EDT Care) MG Nicotine 4 Nicore 07/20/ active Nicorett e 4 eCW3 MG Chewing tte 4 2018 MG ([place] Gum MG 12:00: [place] [[place]] 00 AM Health [place] 4 EDT Care) MG Nicotine 4 Nicore 07/20/ active Nicorett e 4 eCW3 MG Chewing tte 4 2018 MG ([place] Gum MG 12:00: [place] [[place]] 00 AM Health [place] 4 EDT Care) MG Nicotine 4 Nicore 07/20/ active Nicorett e 4 eCW3 MG Chewing tte 4 2018 MG ([place] Gum MG 12:00: [place] [[place]] 00 AM Health [place] 4 EDT Care) MG Nicotine 4 Nicore 07/20/ active Nicorett e 4 eCW3 MG Chewing tte 4 2018 MG ([place] Gum MG 12:00: [place] [[place]] 00 AM Health [place] 4 EDT Care) MG Nicotine 4 Nicore 07/20/ active Nicorett e 4 eCW3 MG Chewing tte 4 2018 MG ([place] Gum MG 12:00: [place] [[place]] 00 AM Health [place] 4 EDT Care) MG Nicotine 4 Nicore 07/20/ active Nicorett e 4 eCW3 MG Chewing tte 4 2018 MG ([place] Gum MG 12:00: [place] [[place]] 00 AM Health [place] 4 EDT Care) MG Nicotine 4 Nicore 07/20/ active Nicorett e 4 eCW3 MG Chewing tte 4 2018 MG ([place] Gum MG 12:00: [place] [[place]] 00 AM Health [place] 4 EDT Care) MG Nicotine 4 Nicore 07/20/ active Nicorett e 4 eCW3 MG Chewing tte 4 2018 MG ([place] Gum MG 12:00: [place] [[place]] 00 AM Health [place] 4 EDT Care) MG Nicotine 4 Nicore 07/20/ active Nicorett e 4 eCW3 MG Chewing tte 4 2018 MG ([place] Gum MG 12:00: [place] [[place]] 00 AM Health [place] 4 EDT Care) MG Nicotine 4 Nicore 07/20/ active Nicorett e 4 eCW3 MG Chewing tte 4 2018 MG ([place] Gum MG 12:00: [place] [[place]] 00 AM Health [place] 4 EDT Care) MG Nicotine 4 Nicore 07/20/ active Nicorett e 4 eCW3 MG Chewing tte 4 2018 MG ([place] Gum MG 12:00: [place] [[place]] 00 AM Health [place] 4 EDT Care) MG Nicotine 4 Nicore 07/20/ active Nicorett e 4 eCW3 MG Chewing tte 4 2017 MG ([place] Gum MG 12:00: [place] [[place]] 00 AM Health [place] 4 EDT Care) MG Nicotine 4 Nicore 07/20/ active Nicorett e 4 eCW3 MG Chewing tte 4 2018 MG ([place] Gum MG 12:00: [place] [[place]] 00 AM Health [place] 4 EDT Care) MG Nicotine 4 Nicore 07/20/ active Nicorett e 4 eCW3 MG Chewing tte 4 2018 MG ([place] Gum MG 12:00: [place] [[place]] 00 AM Health [place] 4 EDT Care) MG Nicotine 4 Nicore 07/20/ active Nicorett e 4 eCW3 MG Chewing tte 4 2018 MG ([place] Gum MG 12:00: [place] [[place]] 00 AM Health [place] 4 EDT Care) MG Nicotine 4 Nicore 07/20/ active Nicorett e 4 eCW3 MG Chewing tte 4 2017 MG ([place] Gum MG 12:00: [place] [[place]] 00 AM Health [place] 4 EDT Care) MG Transfer Transf 08/07/ active Transfer e CW3 Bench - er 2017 Bench - ([place] Bench 12:00: [place] - 00 AM Health EDT Care) 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/07/ active Wheelcha ir - eCW3 - hair - 2017 ([place] 12:00: [place] 00 AM Health EDT Care) 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/07/ active Wheelcha ir - eCW3 - hair - 2016 ([place] 12:00: [place] 00 AM Health EDT Care) Transfer Transf 04/ active Transfer e CW3 Bench - er 2017 Bench - ([place] Bench 12:00: [place] - 00 AM Health EDT Care) Transfer Transf 08/07/ active Transfer e CW3 Bench - er 2016 Bench - ([place] Bench 12:00: [place] - 00 AM Health EDT Care) 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/07/ active Wheelcha ir - eCW3 - hair - 2016 ([place] 12:00: [place] 00 AM Health EDT Care) Transfer Transf 04/ active Transfer e CW3 Bench - er 2016 Bench - ([place] Bench 12:00: [place] - 00 AM Health EDT Care) Transfer Transf 08/07/ active Transfer e CW3 Bench - er 2016 Bench - ([place] Bench 12:00: [place] - 00 AM Health EDT Care) Transfer Transf 04/ active Transfer e CW3 Bench - er 2016 Bench - ([place] Bench 12:00: [place] - 00 AM Health EDT Care) 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/07/ active Wheelcha ir - eCW3 - hair - 2016 ([place] 12:00: [place] 00 AM Health EDT Care) Transfer Transf 04/ active Transfer e CW3 Bench - er 2016 Bench - ([place] Bench 12:00: [place] - 00 AM Health EDT Care) Transfer Transf 04/ active Transfer e CW3 Bench - er 2016 Bench - ([place] Bench 12:00: [place] - 00 AM Health EDT Care) Transfer Transf 04/ active Transfer e CW3 Bench - er 2016 Bench - ([place] Bench 12:00: [place] - 00 AM Health EDT Care) Transfer Transf 04/ active Transfer e CW3 Bench - er 2016 Bench - ([place] Bench 12:00: [place] - 00 AM Health EDT Care) Transfer Transf 04/ active Transfer e CW3 Bench - er 2017 Bench - ([place] Bench 12:00: [place] - 00 AM Health EDT Care) 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/07/ active Wheelcha ir - eCW3 - hair - 2016 ([place] 12:00: [place] 00 AM Health EDT Care) Transfer Transf 04/ active Transfer e CW3 Bench - er 2017 Bench - ([place] Bench 12:00: [place] - 00 AM Health EDT Care) 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/07/ active Wheelcha ir - eCW3 - hair - 2017 ([place] 12:00: [place] 00 AM Health EDT Care) 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/07/ active Wheelcha ir - eCW3 - hair - 2017 ([place] 12:00: [place] 00 AM Health EDT Care) 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/07/ active Wheelcha ir - eCW3 - hair - 2017 ([place] 12:00: [place] 00 AM Health EDT Care) 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/07/ active Wheelcha ir - eCW3 - hair - 2017 ([place] 12:00: [place] 00 AM Health EDT Care) Transfer Transf 08/07/ active Transfer e CW3 Bench - er 2017 Bench - ([place] Bench 12:00: [place] - 00 AM Health EDT Care) Transfer Transf 08/07/ active Transfer e CW3 Bench - er 2016 Bench - ([place] Bench 12:00: [place] - 00 AM Health EDT Care) 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/07/ active Wheelcha ir - eCW3 - hair - 2017 ([place] 12:00: [place] 00 AM Health EDT Care) 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/07/ active Wheelcha ir - eCW3 - hair - 2017 ([place] 12:00: [place] 00 AM Health EDT Care) Transfer Transf 08/07/ active Transfer e CW3 Bench - er 2016 Bench - ([place] Bench 12:00: [place] - 00 AM Health EDT Care) 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/07/ active Wheelcha ir - eCW3 - hair - 2017 ([place] 12:00: [place] 00 AM Health EDT Care) 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/07/ active Wheelcha ir - eCW3 - hair - 2017 ([place] 12:00: [place] 00 AM Health EDT Care) 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/07/ active Wheelcha ir - eCW3 - hair - 2017 ([place] 12:00: [place] 00 AM Health EDT Care) 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/07/ active Wheelcha ir - eCW3 - hair - 2017 ([place] 12:00: [place] 00 AM Health EDT Care) 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/07/ active Wheelcha ir - eCW3 - hair - 2017 ([place] 12:00: [place] 00 AM Health EDT Care) Transfer Transf 08/07/ active Transfer e CW3 Bench - er 2016 Bench - ([place] Bench 12:00: [place] - 00 AM Health EDT Care) Transfer Transf 08/07/ active Transfer e CW3 Bench - er 2017 Bench - ([place] Bench 12:00: [place] - 00 AM Health EDT Care) Transfer Transf 08/07/ active Transfer e CW3 Bench - er 2016 Bench - ([place] Bench 12:00: [place] - 00 AM Health EDT Care) Transfer Transf 08/07/ active Transfer e CW3 Bench - er 2016 Bench - ([place] Bench 12:00: [place] - 00 AM Health EDT Care) 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/07/ active Wheelcha ir - eCW3 - hair - 2016 ([place] 12:00: [place] 00 AM Health EDT Care) 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/07/ active Wheelcha ir - eCW3 - hair - 2017 ([place] 12:00: [place] 00 AM Health EDT Care) 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/07/ active Wheelcha ir - eCW3 - hair - 2017 ([place] 12:00: [place] 00 AM Health EDT Care) 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/07/ active Wheelcha ir - eCW3 - hair - 2017 ([place] 12:00: [place] 00 AM Health EDT Care) Transfer Transf 08/07/ active Transfer e CW3 Bench - er 2016 Bench - ([place] Bench 12:00: [place] - 00 AM Health EDT Care) Transfer Transf 08/07/ active Transfer e CW3 Bench - er 2016 Bench - ([place] Bench 12:00: [place] - 00 AM Health EDT Care) Transfer Transf 08/07/ active Transfer e CW3 Bench - er 2016 Bench - ([place] Bench 12:00: [place] - 00 AM Health EDT Care) 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/07/ active Wheelcha ir - eCW3 - hair - 2017 ([place] 12:00: [place] 00 AM Health EDT Care) 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/07/ active Wheelcha ir - eCW3 - hair - 2017 ([place] 12:00: [place] 00 AM Health EDT Care) 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/07/ active Wheelcha ir - eCW3 - hair - 2017 ([place] 12:00: [place] 00 AM Health EDT Care) 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/07/ active Wheelcha ir - eCW3 - hair - 2017 ([place] 12:00: [place] 00 AM Health EDT Care) Transfer Transf 08/07/ active Transfer e CW3 Bench - er 2017 Bench - ([place] Bench 12:00: [place] - 00 AM Health EDT Care) Transfer Transf 08/07/ active Transfer e CW3 Bench - er 2017 Bench - ([place] Bench 12:00: [place] - 00 AM Health EDT Care) 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/07/ active Wheelcha ir - eCW3 - hair - 2016 ([place] 12:00: [place] 00 AM Health EDT Care) 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/07/ active Wheelcha ir - eCW3 - hair - 2016 ([place] 12:00: [place] 00 AM Health EDT Care) Transfer Transf 08/07/ active Transfer e CW3 Bench - er 2016 Bench - ([place] Bench 12:00: [place] - 00 AM Health EDT Care) Transfer Transf 08/07/ active Transfer e CW3 Bench - er 2016 Bench - ([place] Bench 12:00: [place] - 00 AM Health EDT Care) BEDSIDE UNK 07/31/ active BEDSIDE eCW3 COMMODE 2016 COMMODE ([place] 12:00: [place] 00 AM Health EDT Care) ROLLING UNK 07/31/ active ROLLING eCW3 WALKER WITH 2016 WALKER WITH ( [place] SEAT 12:00: SEAT [place] ATTACHMENT 00 AM ATTACHMENT [facility] EDT Care) ROLLING UNK 07/31/ active ROLLING eCW3 WALKER WITH 2016 WALKER WITH ( [place] SEAT 12:00: SEAT [place] ATTACHMENT 00 AM ATTACHMENT [facility] EDT Care) BEDSIDE UNK 07/31/ active BEDSIDE eCW3 COMMODE 2016 COMMODE ([place] 12:00: [place] 00 AM Health EDT Care) BEDSIDE UNK 07/31/ active BEDSIDE eCW3 COMMODE 2016 COMMODE ([place] 12:00: [place] 00 AM Health EDT Care) ROLLING UNK 07/31/ active ROLLING eCW3 WALKER WITH 2017 WALKER WITH ( [place] SEAT 12:00: SEAT [place] ATTACHMENT 00 AM ATTACHMENT [facility] EDT Care) BEDSIDE UNK 07/31/ active BEDSIDE eCW3 COMMODE 2016 COMMODE ([place] 12:00: [place] 00 AM Health EDT Care) BEDSIDE UNK 07/31/ active BEDSIDE eCW3 COMMODE 2017 COMMODE ([place] 12:00: [place] 00 AM Health EDT Care) ROLLING UNK 07/31/ active ROLLING eCW3 WALKER WITH 2017 WALKER WITH ( [place] SEAT 12:00: SEAT [place] ATTACHMENT 00 AM ATTACHMENT [facility] EDT Care) ROLLING UNK 07/31/ active ROLLING eCW3 WALKER WITH 2017 WALKER WITH ( [place] SEAT 12:00: SEAT [place] ATTACHMENT 00 AM ATTACHMENT He [facility] EDT Care) ROLLING UNK 07/31/ active ROLLING eCW3 WALKER WITH 2017 WALKER WITH ( [place] SEAT 12:00: SEAT [place] ATTACHMENT 00 AM ATTACHMENT He [facility] EDT Care) ROLLING UNK 07/31/ active ROLLING eCW3 WALKER WITH 2017 WALKER WITH ( [place] SEAT 12:00: SEAT [place] ATTACHMENT 00 AM ATTACHMENT He [facility] EDT Care) ROLLING UNK 07/31/ active ROLLING eCW3 WALKER WITH 2017 WALKER WITH ( [place] SEAT 12:00: SEAT [place] ATTACHMENT 00 AM ATTACHMENT He [facility] EDT Care) BEDSIDE UNK 07/31/ active BEDSIDE eCW3 COMMODE 2017 COMMODE ([place] 12:00: [place] 00 AM Health EDT Care) BEDSIDE UNK 07/31/ active BEDSIDE eCW3 COMMODE 2017 COMMODE ([place] 12:00: [place] 00 AM Health EDT Care) BEDSIDE UNK 07/31/ active BEDSIDE eCW3 COMMODE 2017 COMMODE ([place] 12:00: [place] 00 AM Health EDT Care) BEDSIDE UNK 07/31/ active BEDSIDE eCW3 COMMODE 2017 COMMODE ([place] 12:00: [place] 00 AM Health EDT Care) ROLLING UNK 07/31/ active ROLLING eCW3 WALKER WITH 2017 WALKER WITH ( [place] SEAT 12:00: SEAT [place] ATTACHMENT 00 AM ATTACHMENT He [facility] EDT Care) ROLLING UNK 07/31/ active ROLLING eCW3 WALKER WITH 2017 WALKER WITH ( [place] SEAT 12:00: SEAT [place] ATTACHMENT 00 AM ATTACHMENT He [facility] EDT Care) ROLLING UNK 07/31/ active ROLLING eCW3 WALKER WITH 2017 WALKER WITH ( [place] SEAT 12:00: SEAT [place] ATTACHMENT 00 AM ATTACHMENT He [facility] EDT Care) ROLLING UNK 07/31/ active ROLLING eCW3 WALKER WITH 2017 WALKER WITH ( [place] SEAT 12:00: SEAT [place] ATTACHMENT 00 AM ATTACHMENT He [facility] EDT Care) ROLLING UNK 07/31/ active ROLLING eCW3 WALKER WITH 2017 WALKER WITH ( [place] SEAT 12:00: SEAT [place] ATTACHMENT 00 AM ATTACHMENT He [facility] EDT Care) ROLLING UNK 07/31/ active ROLLING eCW3 WALKER WITH 2017 WALKER WITH ( [place] SEAT 12:00: SEAT [place] ATTACHMENT 00 AM ATTACHMENT He [facility] EDT Care) ROLLING UNK 07/31/ active ROLLING eCW3 WALKER WITH 2017 WALKER WITH ( [place] SEAT 12:00: SEAT [place] ATTACHMENT 00 AM ATTACHMENT He [facility] EDT Care) ROLLING UNK 07/31/ active ROLLING eCW3 WALKER WITH 2017 WALKER WITH ( [place] SEAT 12:00: SEAT [place] ATTACHMENT 00 AM ATTACHMENT He [facility] EDT Care) ROLLING UNK 07/31/ active ROLLING eCW3 WALKER WITH 2017 WALKER WITH ( [place] SEAT 12:00: SEAT [place] ATTACHMENT 00 AM ATTACHMENT He [facility] EDT Care) BEDSIDE UNK 07/31/ active BEDSIDE eCW3 COMMODE 2017 COMMODE ([place] 12:00: [place] 00 AM Health EDT Care) BEDSIDE UNK 07/31/ active BEDSIDE eCW3 COMMODE 2016 COMMODE ([place] 12:00: [place] 00 AM Health EDT Care) BEDSIDE UNK 07/31/ active BEDSIDE eCW3 COMMODE 2017 COMMODE ([place] 12:00: [place] 00 AM Health EDT Care) ROLLING UNK 07/31/ active ROLLING eCW3 WALKER WITH 2017 WALKER WITH ( [place] SEAT 12:00: SEAT [place] ATTACHMENT 00 AM ATTACHMENT [facility] EDT Care) BEDSIDE UNK 07/31/ active BEDSIDE eCW3 COMMODE 2016 COMMODE ([place] 12:00: [place] 00 AM Health EDT Care) BEDSIDE UNK 07/31/ active BEDSIDE eCW3 COMMODE 2016 COMMODE ([place] 12:00: [place] 00 AM Health EDT Care) ROLLING UNK 07/31/ active ROLLING eCW3 WALKER WITH 2017 WALKER WITH ( [place] SEAT 12:00: SEAT [place] ATTACHMENT 00 AM ATTACHMENT [facility] EDT Care) BEDSIDE UNK 07/31/ active BEDSIDE eCW3 COMMODE 2017 COMMODE ([place] 12:00: [place] 00 AM Health EDT Care) BEDSIDE UNK 07/31/ active BEDSIDE eCW3 COMMODE 2017 COMMODE ([place] 12:00: [place] 00 AM Health EDT Care) ROLLING UNK 07/31/ active ROLLING eCW3 WALKER WITH 2017 WALKER WITH ( [place] SEAT 12:00: SEAT [place] ATTACHMENT 00 AM ATTACHMENT [facility] EDT Care) BEDSIDE UNK 07/31/ active BEDSIDE eCW3 COMMODE 2017 COMMODE ([place] 12:00: [place] 00 AM Health EDT Care) BEDSIDE UNK 07/31/ active BEDSIDE eCW3 COMMODE 2017 COMMODE ([place] 12:00: [place] 00 AM Health EDT Care) BEDSIDE UNK 07/31/ active BEDSIDE eCW3 COMMODE 2017 COMMODE ([place] 12:00: [place] 00 AM Health EDT Care) BEDSIDE UNK 07/31/ active BEDSIDE eCW3 COMMODE 2017 COMMODE ([place] 12:00: [place] 00 AM Health EDT Care) BEDSIDE UNK 07/31/ active BEDSIDE eCW3 COMMODE 2017 COMMODE ([place] 12:00: [place] 00 AM Health EDT Care) ROLLING UNK 07/31/ active ROLLING eCW3 WALKER WITH 2017 WALKER WITH ( [place] SEAT 12:00: SEAT [place] ATTACHMENT 00 AM ATTACHMENT [facility] EDT Care) ROLLING UNK 07/31/ active ROLLING eCW3 WALKER WITH 2017 WALKER WITH ( [place] SEAT 12:00: SEAT [place] ATTACHMENT 00 AM ATTACHMENT [facility] EDT Care) ROLLING UNK 07/31/ active ROLLING eCW3 WALKER WITH 2017 WALKER WITH ( [place] SEAT 12:00: SEAT [place] ATTACHMENT 00 AM ATTACHMENT [facility] EDT Care) BEDSIDE UNK 07/31/ active BEDSIDE eCW3 COMMODE 2017 COMMODE ([place] 12:00: [place] 00 AM Health EDT Care) ROLLING UNK 07/31/ active ROLLING eCW3 WALKER WITH 2017 WALKER WITH ( [place] SEAT 12:00: SEAT [place] ATTACHMENT 00 AM ATTACHMENT [facility] EDT Care) BEDSIDE UNK 07/31/ active BEDSIDE eCW3 COMMODE 2017 COMMODE ([place] 12:00: [place] 00 AM Health EDT Care) BEDSIDE UNK 07/31/ active BEDSIDE eCW3 COMMODE 2017 COMMODE ([place] 12:00: [place] 00 AM Health EDT Care) BEDSIDE UNK 07/31/ active BEDSIDE eCW3 COMMODE 2017 COMMODE ([place] 12:00: [place] 00 AM Health EDT Care) BEDSIDE UNK 07/31/ active BEDSIDE eCW3 COMMODE 2017 COMMODE ([place] 12:00: [place] 00 AM Health EDT Care) ROLLING UNK 07/31/ active ROLLING eCW3 WALKER WITH 2017 WALKER WITH ( [place] SEAT 12:00: SEAT [place] ATTACHMENT 00 AM ATTACHMENT [facility] EDT Care) ROLLING UNK 07/31/ active ROLLING eCW3 WALKER WITH 2017 WALKER WITH ( [place] SEAT 12:00: SEAT [place] ATTACHMENT 00 AM ATTACHMENT [facility] EDT Care) 200 ACTUAT Ventol 2.0 active Ventolin HFA eCW3 Albuterol in HFA 2017 {puff 108 (90 (Hud son 0.09 108 12:00: s_as_ Base) [place] MG/ACTUAT (90 00 AM neede MCG/ACT Healt h Metered Base) EST d} Care) Dose MCG/AC Inhaler T [Ventolin] Ventolin HFA 108 (90 Base) MCG/ACT 200 ACTUAT Ventol 2.0 active Ventolin HFA eCW3 Albuterol in HFA 2017 {puff 108 (90 (Hud son 0.09 108 12:00: s_as_ Base) [place] MG/ACTUAT (90 00 AM neede MCG/ACT Healt h Metered Base) EST d} Care) Dose MCG/AC Inhaler T [Ventolin] Ventolin HFA 108 (90 Base) MCG/ACT 200 ACTUAT Ventol 2.0 active Ventolin HFA eCW3 Albuterol in HFA 2017 {puff 108 (90 (Hud son 0.09 108 12:00: s_as_ Base) [place] MG/ACTUAT (90 00 AM neede MCG/ACT Healt h Metered Base) EST d} Care) Dose MCG/AC Inhaler T [Ventolin] Ventolin HFA 108 (90 Base) MCG/ACT 200 ACTUAT Ventol 2.0 active Ventolin HFA eCW3 Albuterol in HFA 2017 {puff 108 (90 (Hud son 0.09 108 12:00: s_as_ Base) [place] MG/ACTUAT (90 00 AM neede MCG/ACT Healt h Metered Base) EST d} Care) Dose MCG/AC Inhaler T [Ventolin] Ventolin HFA 108 (90 Base) MCG/ACT 200 ACTUAT Ventol 2.0 active Ventolin HFA eCW3 Albuterol in HFA 2017 {puff 108 (90 ([place] son 0.09 108 12:00: s_as_ Base) [place] MG/ACTUAT (90 00 AM neede MCG/ACT Healt h Metered Base) EST d} Care) Dose MCG/AC Inhaler T [Ventolin] Ventolin HFA 108 (90 Base) MCG/ACT 200 ACTUAT Ventol .0 active Ventolin HFA eCW3 Albuterol in HFA 2017 {puff 108 (90 ([place] son 0.09 108 12:00: s_as_ Base) [place] MG/ACTUAT (90 00 AM neede MCG/ACT Healt h Metered Base) EST d} Care) Dose MCG/AC Inhaler T [Ventolin] Ventolin HFA 108 (90 Base) MCG/ACT 200 ACTUAT Ventol .0 active Ventolin HFA eCW3 Albuterol in HFA 2017 {puff 108 (90 ([place] son 0.09 108 12:00: s_as_ Base) [place] MG/ACTUAT (90 00 AM neede MCG/ACT Healt h Metered Base) EST d} Care) Dose MCG/AC Inhaler T [Ventolin] Ventolin HFA 108 (90 Base) MCG/ACT 200 ACTUAT Ventol .0 active Ventolin HFA eCW3 Albuterol in HFA 2017 {puff 108 (90 ([place] son 0.09 108 12:00: s_as_ Base) [place] MG/ACTUAT (90 00 AM neede MCG/ACT Healt h Metered Base) EST d} Care) Dose MCG/AC Inhaler T [Ventolin] Ventolin HFA 108 (90 Base) MCG/ACT 200 ACTUAT Ventol .0 active Ventolin HFA eCW3 Albuterol in HFA 2017 {puff 108 (90 ([place]ud son 0.09 108 12:00: s_as_ Base) [place] MG/ACTUAT (90 00 AM neede MCG/ACT Healt h Metered Base) EST d} Care) Dose MCG/AC Inhaler T [Ventolin] Ventolin HFA 108 (90 Base) MCG/ACT 200 ACTUAT Ventol .0 active Ventolin HFA eCW3 Albuterol in HFA 2017 {puff 108 (90 ([place] son 0.09 108 12:00: s_as_ Base) [place] MG/ACTUAT (90 00 AM neede MCG/ACT Healt h Metered Base) EST d} Care) Dose MCG/AC Inhaler T [Ventolin] Ventolin HFA 108 (90 Base) MCG/ACT 200 ACTUAT Ventol .0 active Ventolin HFA eCW3 Albuterol in HFA 2017 {puff 108 (90 (Hud son 0.09 108 12:00: s_as_ Base) [place] MG/ACTUAT (90 00 AM neede MCG/ACT Healt h Metered Base) EST d} Care) Dose MCG/AC Inhaler T [Ventolin] Ventolin HFA 108 (90 Base) MCG/ACT 200 ACTUAT Ventol 2.0 active Ventolin HFA eCW3 Albuterol in HFA 2017 {puff 108 (90 (Hud son 0.09 108 12:00: s_as_ Base) [place] MG/ACTUAT (90 00 AM neede MCG/ACT Healt h Metered Base) EST d} Care) Dose MCG/AC Inhaler T [Ventolin] Ventolin HFA 108 (90 Base) MCG/ACT 200 ACTUAT Ventol .0 active Ventolin HFA eCW3 Albuterol in HFA 2017 {puff 108 (90 ([place]ud son 0.09 108 12:00: s_as_ Base) [place] MG/ACTUAT (90 00 AM neede MCG/ACT Healt h Metered Base) EST d} Care) Dose MCG/AC Inhaler T [Ventolin] Ventolin HFA 108 (90 Base) MCG/ACT 200 ACTUAT Ventol .0 active Ventolin HFA eCW3 Albuterol in HFA 2017 {puff 108 (90 (Hud son 0.09 108 12:00: s_as_ Base) [place] MG/ACTUAT (90 00 AM neede MCG/ACT Healt h Metered Base) EST d} Care) Dose MCG/AC Inhaler T [Ventolin] Ventolin HFA 108 (90 Base) MCG/ACT 200 ACTUAT Ventol .0 active Ventolin HFA eCW3 Albuterol in HFA 2017 {puff 108 (90 ([place]ud son 0.09 108 12:00: s_as_ Base) [place] MG/ACTUAT (90 00 AM neede MCG/ACT Healt h Metered Base) EST d} Care) Dose MCG/AC Inhaler T [Ventolin] Ventolin HFA 108 (90 Base) MCG/ACT 200 ACTUAT Ventol .0 active Ventolin HFA eCW3 Albuterol in HFA 2017 {puff 108 (90 (Hud son 0.09 108 12:00: s_as_ Base) [place] MG/ACTUAT (90 00 AM neede MCG/ACT Healt h Metered Base) EST d} Care) Dose MCG/AC Inhaler T [Ventolin] Ventolin HFA 108 (90 Base) MCG/ACT 200 ACTUAT Ventol .0 active Ventolin HFA eCW3 Albuterol in HFA 2017 {puff 108 (90 ([place]ud son 0.09 108 12:00: s_as_ Base) [place] MG/ACTUAT (90 00 AM neede MCG/ACT Healt h Metered Base) EST d} Care) Dose MCG/AC Inhaler T [Ventolin] Ventolin HFA 108 (90 Base) MCG/ACT 200 ACTUAT Ventol .0 active Ventolin HFA eCW3 Albuterol in HFA 2017 {puff 108 (90 ([place]ud son 0.09 108 12:00: s_as_ Base) [place] MG/ACTUAT (90 00 AM neede MCG/ACT Healt h Metered Base) EST d} Care) Dose MCG/AC Inhaler T [Ventolin] Ventolin HFA 108 (90 Base) MCG/ACT 200 ACTUAT Ventol .0 active Ventolin HFA eCW3 Albuterol in HFA 2017 {puff 108 (90 ([place]ud son 0.09 108 12:00: s_as_ Base) [place] MG/ACTUAT (90 00 AM neede MCG/ACT Healt h Metered Base) EST d} Care) Dose MCG/AC Inhaler T [Ventolin] Ventolin HFA 108 (90 Base) MCG/ACT 200 ACTUAT Ventol .0 active Ventolin HFA eCW3 Albuterol in HFA 2017 {puff 108 (90 ([place]ud son 0.09 108 12:00: s_as_ Base) [place] MG/ACTUAT (90 00 AM neede MCG/ACT Healt h Metered Base) EST d} Care) Dose MCG/AC Inhaler T [Ventolin] Ventolin HFA 108 (90 Base) MCG/ACT 200 ACTUAT Ventol .0 active Ventolin HFA eCW3 Albuterol in HFA 2017 {puff 108 (90 ([place]ud son 0.09 108 12:00: s_as_ Base) [place] MG/ACTUAT (90 00 AM neede MCG/ACT Healt h Metered Base) EST d} Care) Dose MCG/AC Inhaler T [Ventolin] Ventolin HFA 108 (90 Base) MCG/ACT 200 ACTUAT Ventol 2.0 active Ventolin HFA eCW3 Albuterol in HFA 2017 {puff 108 (90 (Hud son 0.09 108 12:00: s_as_ Base) [place] MG/ACTUAT (90 00 AM neede MCG/ACT Healt h Metered Base) EST d} Care) Dose MCG/AC Inhaler T [Ventolin] Ventolin HFA 108 (90 Base) MCG/ACT 200 ACTUAT Ventol .0 active Ventolin HFA eCW3 Albuterol in HFA 2017 {puff 108 (90 ([place]ud son 0.09 108 12:00: s_as_ Base) [place] MG/ACTUAT (90 00 AM neede MCG/ACT Healt h Metered Base) EST d} Care) Dose MCG/AC Inhaler T [Ventolin] Ventolin HFA 108 (90 Base) MCG/ACT 200 ACTUAT Ventol .0 active Ventolin HFA eCW3 Albuterol in HFA 2017 {puff 108 (90 (Hud son 0.09 108 12:00: s_as_ Base) [place] MG/ACTUAT (90 00 AM neede MCG/ACT Healt h Metered Base) EST d} Care) Dose MCG/AC Inhaler T [Ventolin] Ventolin HFA 108 (90 Base) MCG/ACT 200 ACTUAT Ventol .0 active Ventolin HFA eCW3 Albuterol in HFA 2017 {puff 108 (90 (Hud son 0.09 108 12:00: s_as_ Base) [place] MG/ACTUAT (90 00 AM neede MCG/ACT Healt h Metered Base) EST d} Care) Dose MCG/AC Inhaler T [Ventolin] Ventolin HFA 108 (90 Base) MCG/ACT 200 ACTUAT Ventol 07/04/ 2.0 active Ventolin HFA eCW3 Albuterol in HFA 2017 {puff 108 (90 (Hud son 0.09 108 12:00: s_as_ Base) [place] MG/ACTUAT (90 00 AM neede MCG/ACT Healt h Metered Base) EST d} Care) Dose MCG/AC Inhaler T [Ventolin] Ventolin HFA 108 (90 Base) MCG/ACT Alcohol Alcoho 05/24/ active Alcohol Pad s eCW3 Pads 70 % l Pads 2016 70 % ([place] 70 % 12:00: [place] 00 AM Health EST Care) Lancets - Lancet 05/24/ active Lancets - eCW3 s - 2016 ([place] 12:00: [place] 00 AM Health EST Care) Alcohol Alcoho 05/24/ active Alcohol Pad s eCW3 Pads 70 % l Pads 2016 70 % ([place] 70 % 12:00: [place] 00 AM Health EST Care) Alcohol Alcoho 05/24/ suspend Alcohol Pa ds eCW3 Pads 70 % l Pads 2017 ed 70 % ([place] 70 % 12:00: [place] 00 AM Health EST Care) Lancets - Lancet 05/24/ suspend Lancets - eCW3 s - 2016 ed ([place] 12:00: [place] 00 AM Health EST Care) Lancets - Lancet 05/24/ active Lancets - eCW3 s - 2016 ([place] 12:00: [place] 00 AM Health EST Care) Lancets - Lancet 05/24/ active Lancets - eCW3 s - 2016 ([place] 12:00: [place] 00 AM [facility] EST Care) Lancets - Lancet 05/24/ suspend Lancets - eCW3 s - 2016 ed ([place] 12:00: [place] 00 AM Health EST Care) Alcohol Alcoho 05/24/ active Alcohol Pad s eCW3 Pads 70 % l Pads 2016 70 % ([place] 70 % 12:00: [place] 00 AM Health EST Care) Lancets - Lancet 05/24/ active Lancets - eCW3 s - 2016 ([place] 12:00: [place] 00 AM Health EST Care) Lancets - Lancet 05/24/ active Lancets - eCW3 s - 2016 ([place] 12:00: [place] 00 AM [facility] EST Care) Alcohol Alcoho 05/24/ active Alcohol Pad s eCW3 Pads 70 % l Pads 2016 70 % ([place] 70 % 12:00: [place] 00 AM [facility] EST Care) Alcohol Alcoho 05/24/ active Alcohol Pad s eCW3 Pads 70 % l Pads 2016 70 % ([place] 70 % 12:00: [place] 00 AM Health EST Care) Alcohol Alcoho 05/24/ suspend Alcohol Pa ds eCW3 Pads 70 % l Pads 2017 ed 70 % ([place] 70 % 12:00: [place] 00 AM Health EST Care) Lancets - Lancet 05/24/ active Lancets - eCW3 s - 2016 ([place] 12:00: [place] 00 AM Health EST Care) Lancets - Lancet 05/24/ active Lancets - eCW3 s - 2016 ([place] 12:00: [place] 00 AM Health EST Care) Lancets - Lancet 05/24/ active Lancets - eCW3 s - 2016 ([place] 12:00: [place] 00 AM [facility] EST Care) Lancets - Lancet 05/24/ suspend Lancets - eCW3 s - 2016 ed ([place] 12:00: [place] 00 AM [facility] EST Care) Alcohol Alcoho 05/24/ active Alcohol Pad s eCW3 Pads 70 % l Pads 2016 70 % ([place] 70 % 12:00: [place] 00 AM [facility] EST Care) Lancets - Lancet 05/24/ suspend Lancets - eCW3 s - 2016 ed ([place] 12:00: [place] 00 AM [facility] EST Care) Alcohol Alcoho 05/24/ active Alcohol Pad s eCW3 Pads 70 % l Pads 2016 70 % ([place] 70 % 12:00: [place] 00 AM Health EST Care) Lancets - Lancet 05/24/ suspend Lancets - eCW3 s - 2016 ed ([place] 12:00: [place] 00 AM [facility] EST Care) Lancets - Lancet 05/24/ active Lancets - eCW3 s - 2016 ([place] 12:00: [place] 00 AM [facility] EST Care) Alcohol Alcoho 05/24/ suspend Alcohol Pa ds eCW3 Pads 70 % l Pads 2017 ed 70 % ([place] 70 % 12:00: [place] 00 AM Health EST Care) Lancets - Lancet 05/24/ active Lancets - eCW3 s - 2016 ([place] 12:00: [place] 00 AM [facility] EST Care) Lancets - Lancet 05/24/ active Lancets - eCW3 s - 2017 ([place] 12:00: [place] 00 AM [facility] EST Care) Alcohol Alcoho 05/24/ suspend Alcohol Pa ds eCW3 Pads 70 % l Pads 2017 ed 70 % ([place] 70 % 12:00: [place] 00 AM Health EST Care) Alcohol Alcoho 05/24/ active Alcohol Pad s eCW3 Pads 70 % l Pads 2016 70 % ([place] 70 % 12:00: [place] 00 AM Health EST Care) Alcohol Alcoho 05/24/ active Alcohol Pad s eCW3 Pads 70 % l Pads 2017 70 % ([place] 70 % 12:00: [place] 00 AM Health EST Care) Alcohol Alcoho 05/24/ active Alcohol Pad s eCW3 Pads 70 % l Pads 2016 70 % ([place] 70 % 12:00: [place] 00 AM Health EST Care) Lancets - Lancet 05/24/ active Lancets - eCW3 s - 2016 ([place] 12:00: [place] 00 AM [facility] EST Care) Lancets - Lancet 05/24/ active Lancets - eCW3 s - 2016 ([place] 12:00: [place] 00 AM [facility] EST Care) Alcohol Alcoho 05/24/ active Alcohol Pad s eCW3 Pads 70 % l Pads 2017 70 % ([place] 70 % 12:00: [place] 00 AM [facility] EST Care) Lancets - Lancet 05/24/ active Lancets - eCW3 s - 2017 ([place] 12:00: [place] 00 AM [facility] EST Care) Alcohol Alcoho 05/24/ active Alcohol Pad s eCW3 Pads 70 % l Pads 2017 70 % ([place] 70 % 12:00: [place] 00 AM [facility] EST Care) Alcohol Alcoho 05/24/ active Alcohol Pad s eCW3 Pads 70 % l Pads 2016 70 % ([place] 70 % 12:00: [place] 00 AM Health EST Care) Alcohol Alcoho 05/24/ suspend Alcohol Pa ds eCW3 Pads 70 % l Pads 2017 ed 70 % ([place] 70 % 12:00: [place] 00 AM Health EST Care) Alcohol Alcoho 05/24/ active Alcohol Pad s eCW3 Pads 70 % l Pads 2016 70 % ([place] 70 % 12:00: [place] 00 AM Health EST Care) Lancets - Lancet 05/24/ active Lancets - eCW3 s - 2017 ([place] 12:00: [place] 00 AM Health EST Care) Lancets - Lancet 05/24/ active Lancets - eCW3 s - 2017 ([place] 12:00: [place] 00 AM [facility] EST Care) Alcohol Alcoho 05/24/ active Alcohol Pad s eCW3 Pads 70 % l Pads 2016 70 % ([place] 70 % 12:00: [place] 00 AM Health EST Care) Lancets - Lancet 05/24/ active Lancets - eCW3 s - 2016 ([place] 12:00: [place] 00 AM Health EST Care) Lancets - Lancet 05/24/ suspend Lancets - eCW3 s - 2017 ed ([place] 12:00: [place] 00 AM Health EST Care) Alcohol Alcoho 05/24/ active Alcohol Pad s eCW3 Pads 70 % l Pads 2016 70 % ([place] 70 % 12:00: [place] 00 AM Health EST Care) Alcohol Alcoho 05/24/ active Alcohol Pad s eCW3 Pads 70 % l Pads 2016 70 % ([place] 70 % 12:00: [place] 00 AM Health EST Care) Lancets - Lancet 05/24/ active Lancets - eCW3 s - 2016 ([place] 12:00: [place] 00 AM [facility] EST Care) Lancets - Lancet 05/24/ suspend Lancets - eCW3 s - 2017 ed ([place] 12:00: [place] 00 AM Health EST Care) Alcohol Alcoho 05/24/ suspend Alcohol Pa ds eCW3 Pads 70 % l Pads 2017 ed 70 % ([place] 70 % 12:00: [place] 00 AM Health EST Care) Lancets - Lancet 05/24/ active Lancets - eCW3 s - 2016 ([place] 12:00: [place] 00 AM [facility] EST Care) Alcohol Alcoho 05/24/ active Alcohol Pad s eCW3 Pads 70 % l Pads 2016 70 % ([place] 70 % 12:00: [place] 00 AM Health EST Care) Alcohol Alcoho 05/24/ active Alcohol Pad s eCW3 Pads 70 % l Pads 2016 70 % ([place] 70 % 12:00: [place] 00 AM Health EST Care) Alcohol Alcoho 05/24/ suspend Alcohol Pa ds eCW3 Pads 70 % l Pads 2017 ed 70 % ([place] 70 % 12:00: [place] 00 AM Health EST Care) Loratadine Lorata 03/02/ 1.0 active Loratadi ne eCW3 10 MG Oral dine 2016 {tabl 10 MG ([place] Tablet 10 MG 12:00: et} [facility] EDT Care) Loratadine Lorata .0 active Loratadi ne eCW3 10 MG Oral dine 2016 {tabl 10 MG ([place] Tablet 10 MG 12:00: et} [place] [facility] EDT Care) Loratadine Lorata .0 active Loratadi ne eCW3 10 MG Oral dine 2015 {tabl 10 MG ([place] Tablet 10 MG 12:00: et} [place] AM [facility] EDT Care) [facility] .0 active Singula ir 10 eCW3 10 MG Oral air 10 2015 {tabl MG ([place] Table[place] MG 12:00: et_in [place] [Singulair] 00 AM _the_ Health Singulair EDT eveni Care) 10 MG ng} [facility] .0 active Singula ir 10 eCW3 10 MG Oral air 10 2015 {tabl MG ([place] Tablet MG 12:00: et_in [place] [Singulair] 00 AM _the_ Health Singula EDT eveni Care) 10 MG ng} Loratadine Lorata .0 active Loratadi ne eCW3 10 MG Oral dine 2015 {tabl 10 MG ([place] Tablet 10 MG 12:00: et} [place] [facility] EDT Care) Loratadine Lorata .0 active Loratadi ne eCW3 10 MG Oral dine 2016 {tabl 10 MG ([place] Tablet 10 MG 12:00: et} [place] [facility] EDT Care) Loratadine Lorata .0 active Loratadi ne eCW3 10 MG Oral dine 2016 {tabl 10 MG ([place] Tablet 10 MG 12:00: et} [place] [facility] EDT Care) [facility] .0 active Singula ir 10 eCW3 10 MG Oral air 10 2015 {tabl MG ([place] Tablet MG 12:00: et_in [place] [Singulair] 00 AM _the_ Health Singulair EDT eveni Care) 10 MG ng} Loratadine Lorata 0 active Loratadi ne eCW3 10 MG Oral dine 2015 {tabl 10 MG ([place] Tablet 10 MG 12:00: et} [place] [facility] EDT Care) Loratadine Lorata .0 active Loratadi ne eCW3 10 MG Oral dine 2015 {tabl 10 MG ([place] Tablet 10 MG 12:00: et} [place] [facility] EDT Care) [facility] 0 active Singula ir 10 eCW3 10 MG Oral air 10 2015 {tabl MG ([place] Tablet MG 12:00: et_in [place] [Singulair] 00 AM _the_ Health Singulair EDT eveni Care) 10 MG ng} Loratadine Lorata 0 active Loratadi ne eCW3 10 MG Oral dine 2015 {tabl 10 MG ([place] Tablet 10 MG 12:00: et} [place] [facility] EDT Care) [facility] .0 active Singula ir 10 eCW3 10 MG Oral air 10 2015 {tabl MG ([place] Tablet MG 12:00: et_in [place] [Singulair] 00 AM _the_ Health Singulair EDT eveni Care) 10 MG ng} Loratadine Lorata 0 active Loratadi ne eCW3 10 MG Oral dine 2015 {tabl 10 MG ([place] Tablet 10 MG 12:00: et} [place] [facility] EDT Care) Loratadine Lorata .0 active Loratadi ne eCW3 10 MG Oral dine 2015 {tabl 10 MG ([place] Tablet 10 MG 12:00: et} [place] 00 AM Health EDT Care) [facility] 0 active Singula ir 10 eCW3 10 MG Oral air 10 2015 {tabl MG ([place] Tablet MG 12:00: et_in [place] [Singulair] 00 AM _the_ Health Singulair EDT eveni Care) 10 MG ng} Loratadine Lorata 0 active Loratadi ne eCW3 10 MG Oral dine 2015 {tabl 10 MG ([place] Tablet 10 MG 12:00: et} [place] 00 AM Health EDT Care) Loratadine Lorata .0 active Loratadi ne eCW3 10 MG Oral dine 2015 {tabl 10 MG ([place] Tablet 10 MG 12:00: et} [place] [facility] EDT Care) Loratadine Lorata .0 active Loratadi ne eCW3 10 MG Oral dine 2015 {tabl 10 MG ([place] Tablet 10 MG 12:00: et} [place] [facility] EDT Care) [facility] .0 active Singula ir 10 eCW3 10 MG Oral air 10 2015 {tabl MG ([place] Tablet MG 12:00: et_in [place] [Singulair] AM _the_ Health Singulair EDT eveni Care) 10 MG ng} Loratadine Lorata .0 active Loratadi ne eCW3 10 MG Oral dine 2015 {tabl 10 MG ([place] Tablet 10 MG 12:00: et} [place] [facility] EDT Care) [facility] .0 active Singula ir 10 eCW3 10 MG Oral air 10 2015 {tabl MG ([place] Tablet MG 12:00: et_in [place] [Singulair] 00 AM _the_ Health Singulair EDT eveni Care) 10 MG ng} [facility] .0 active Singula ir 10 eCW3 10 MG Oral air 10 2015 {tabl MG ([place] Tablet MG 12:00: et_in [place] [Singulair] 00 AM _the_ Health Singulair EDT eveni Care) 10 MG ng} [facility] .0 active Singula ir 10 eCW3 10 MG Oral air 10 2015 {tabl MG ([place] Tablet MG 12:00: et_in [place] [Singulair] AM _the_ Health Singulair EDT eveni Care) 10 MG ng} Loratadine Lorata .0 active Loratadi ne eCW3 10 MG Oral dine 2015 {tabl 10 MG ([place] Tablet 10 MG 12:00: et} [place] 00 AM Health EDT Care) [facility] .0 active Singula ir 10 eCW3 10 MG Oral air 10 2015 {tabl MG ([place] Tablet MG 12:00: et_in [place] [Singulair] 00 AM _the_ Health Singulair EDT eveni Care) 10 MG ng} Loratadine Lorata .0 active Loratadi ne eCW3 10 MG Oral dine 2015 {tabl 10 MG ([place] Tablet 10 MG 12:00: et} [place] 00 AM Health EDT Care) Loratadine Lorata .0 active Loratadi ne eCW3 10 MG Oral dine 2015 {tabl 10 MG ([place] Tablet 10 MG 12:00: et} [place] 00 AM Health EDT Care) [facility] .0 active Singula ir 10 eCW3 10 MG Oral air 10 2015 {tabl MG ([place] Tablet MG 12:00: et_in [place] [Singulair] 00 AM _the_ Health Singulair EDT eveni Care) 10 MG ng} Loratadine Lorata .0 active Loratadi ne eCW3 10 MG Oral dine 2015 {tabl 10 MG ([place] Tablet 10 MG 12:00: et} [place] 00 AM Health EDT Care) [facility] .0 active Singula ir 10 eCW3 10 MG Oral air 10 2015 {tabl MG ([place] Tablet MG 12:00: et_in [place] [Singulair] 00 AM _the_ Health Singulair EDT eveni Care) 10 MG ng} Loratadine Lorata .0 active Loratadi ne eCW3 10 MG Oral dine 2015 {tabl 10 MG ([place] Tablet 10 MG 12:00: et} [place] 00 AM Health EDT Care) Loratadine Lorata .0 active Loratadi ne eCW3 10 MG Oral dine 2015 {tabl 10 MG ([place] Tablet 10 MG 12:00: et} [place] 00 AM Health EDT Care) [facility] .0 active Singula ir 10 eCW3 10 MG Oral air 10 2015 {tabl MG ([place] Tablet MG 12:00: et_in [place] [Singulair] 00 AM _the_ Health Singulair EDT eveni Care) 10 MG ng} [facility] .0 active Singula ir 10 eCW3 10 MG Oral air 2015 {tabl MG ([place] Tablet MG 12:00: et_in [place] [Singulair] 00 AM _the_ Health Singulair EDT eveni Care) 10 MG ng} [facility] .0 active Singula ir 10 eCW3 10 MG Oral air 2015 {tabl MG ([place] Tablet MG 12:00: et_in [place] [Singulair] 00 AM _the_ Health Singulair EDT eveni Care) 10 MG ng} Loratadine Lorata .0 active Loratadi ne eCW3 10 MG Oral dine 2015 {tabl 10 MG ([place] Tablet 10 MG 12:00: et} [place] 00 AM Health EDT Care) [facility] .0 active Singula ir 10 eCW3 10 MG Oral air 2015 {tabl MG ([place] Tablet MG 12:00: et_in [place] [Singulair] 00 AM _the_ Health Singulair EDT eveni Care) 10 MG ng} [facility] .0 active Singula ir 10 eCW3 10 MG Oral air 2015 {tabl MG ([place] Tablet MG 12:00: et_in [place] [Singulair] 00 AM _the_ Health Singulair EDT eveni Care) 10 MG ng} [facility] .0 active Singula ir 10 eCW3 10 MG Oral air 2015 {tabl MG ([place] Tablet MG 12:00: et_in [place] [Singulair] 00 AM _the_ Health Singulair EDT eveni Care) 10 MG ng} [facility] .0 active Singula ir 10 eCW3 10 MG Oral air 2015 {tabl MG ([place] Tablet MG 12:00: et_in [place] [Singulair] 00 AM _the_ Health Singulair EDT eveni Care) 10 MG ng} Loratadine Lorata .0 active Loratadi ne eCW3 10 MG Oral dine 2015 {tabl 10 MG ([place] Tablet 10 MG 12:00: et} [place] [facility] EDT Care) Loratadine Lorata .0 active Loratadi ne eCW3 10 MG Oral dine 2015 {tabl 10 MG ([place] Tablet 10 MG 12:00: et} [place] 00 AM Health EDT Care) Loratadine Lorata .0 active Loratadi ne eCW3 10 MG Oral dine 2015 {tabl 10 MG ([place] Tablet 10 MG 12:00: et} [place] 00 AM Health EDT Care) [facility] .0 active Singula ir 10 eCW3 10 MG Oral air 10 2015 {tabl MG ([place] Tablet MG 12:00: et_in [place] [Singulair] 00 AM _the_ Health Singulair EDT eveni Care) 10 MG ng} [facility] .0 active Singula ir 10 eCW3 10 MG Oral air 10 2015 {tabl MG ([place] Tablet MG 12:00: et_in [place] [Singulair] 00 AM _the_ Health Singulair EDT eveni Care) 10 MG ng} Loratadine Lorata .0 active Loratadi ne eCW3 10 MG Oral dine 2015 {tabl 10 MG ([place] Tablet 10 MG 12:00: et} [place] 00 AM Health EDT Care) [facility] .0 active Singula ir 10 eCW3 10 MG Oral air 10 2015 {tabl MG ([place] Tablet MG 12:00: et_in [place] [Singulair] 00 AM _the_ Health Singulair EDT eveni Care) 10 MG ng} [facility] .0 active Singula ir 10 eCW3 10 MG Oral air 10 2015 {tabl MG ([place] Tablet MG 12:00: et_in [place] [Singulair] 00 AM _the_ Health Singulair EDT eveni Care) 10 MG ng} [facility] .0 active Singula ir 10 eCW3 10 MG Oral air 10 2015 {tabl MG ([place] Tablet MG 12:00: et_in [place] [Singulair] 00 AM _the_ Health Singulair EDT eveni Care) 10 MG ng} [facility] .0 active Singula ir 10 eCW3 10 MG Oral air 10 2015 {tabl MG ([place] Tablet MG 12:00: et_in [place] [Singulair] 00 AM _the_ Health Singulair EDT eveni Care) 10 MG ng} SHOWER UNK 05/ active SHOWER CHAIR e CW3 CHAIR 2016 compatible ([place] compatible 12:00: with patient [place] with 00 AM insurance Health patient EDT Care) insurance SHOWER UNK 09/08/ active SHOWER CHAIR e CW3 CHAIR 2016 compatible ([place] compatible 12:00: with patient [place] with 00 AM insurance Health patient EDT Care) insurance SHOWER UNK 09/08/ active SHOWER CHAIR e CW3 CHAIR 2016 compatible ([place] compatible 12:00: with patient [place] with 00 AM insurance Health patient EDT Care) insurance SHOWER UNK 09/08/ active SHOWER CHAIR e CW3 CHAIR 2016 compatible ([place] compatible 12:00: with patient [place] with 00 AM insurance Health patient EDT Care) insurance SHOWER UNK 09/08/ active SHOWER CHAIR e CW3 CHAIR 2016 compatible ([place] compatible 12:00: with patient [place] with 00 AM insurance Health patient EDT Care) insurance SHOWER UNK 09/08/ active SHOWER CHAIR e CW3 CHAIR 2016 compatible ([place] compatible 12:00: with patient [place] with 00 AM insurance Health patient EDT Care) insurance SHOWER UNK 09/08/ suspend SHOWER CHAIR eCW3 CHAIR 2016 ed compatible ([place] compatible 12:00: with patient [place] with 00 AM insurance Health patient EDT Care) insurance SHOWER UNK 09/08/ suspend SHOWER CHAIR eCW3 CHAIR 2016 ed compatible ([place] compatible 12:00: with patient [place] with 00 AM insurance Health patient EDT Care) insurance SHOWER UNK 09/08/ active SHOWER CHAIR e CW3 CHAIR 2016 compatible ([place] compatible 12:00: with patient [place] with 00 AM insurance Health patient EDT Care) insurance SHOWER UNK 09/08/ suspend SHOWER CHAIR eCW3 CHAIR 2016 ed compatible ([place] compatible 12:00: with patient [place] with 00 AM insurance Health patient EDT Care) insurance SHOWER UNK 09/08/ active SHOWER CHAIR e CW3 CHAIR 2016 compatible ([place] compatible 12:00: with patient [place] with 00 AM insurance Health patient EDT Care) insurance SHOWER UNK 09/08/ active SHOWER CHAIR e CW3 CHAIR 2016 compatible ([place] compatible 12:00: with patient [place] with 00 AM insurance Health patient EDT Care) insurance SHOWER UNK 09/08/ suspend SHOWER CHAIR eCW3 CHAIR 2016 ed compatible ([place] compatible 12:00: with patient [place] with 00 AM insurance Health patient EDT Care) insurance SHOWER UNK 09/08/ active SHOWER CHAIR e CW3 CHAIR 2015 compatible ([place] compatible 12:00: with patient [place] with 00 AM insurance Health patient EDT Care) insurance SHOWER UNK 09/08/ active SHOWER CHAIR e CW3 CHAIR 2016 compatible ([place] compatible 12:00: with patient [place] with 00 AM insurance Health patient EDT Care) insurance SHOWER UNK 09/08/ active SHOWER CHAIR e CW3 CHAIR 2016 compatible ([place] compatible 12:00: with patient [place] with 00 AM insurance Health patient EDT Care) insurance SHOWER UNK 09/08/ active SHOWER CHAIR e CW3 CHAIR 2016 compatible ([place] compatible 12:00: with patient [place] with 00 AM insurance Health patient EDT Care) insurance SHOWER UNK 09/08/ active SHOWER CHAIR e CW3 CHAIR 2016 compatible ([place] compatible 12:00: with patient [place] with 00 AM insurance Health patient EDT Care) insurance SHOWER UNK 09/08/ active SHOWER CHAIR e CW3 CHAIR 2016 compatible ([place] compatible 12:00: with patient [place] with 00 AM insurance Health patient EDT Care) insurance SHOWER UNK 09/08/ active SHOWER CHAIR e CW3 CHAIR 2016 compatible ([place] compatible 12:00: with patient [place] with 00 AM insurance Health patient EDT Care) insurance SHOWER UNK 09/08/ active SHOWER CHAIR e CW3 CHAIR 2015 compatible ([place] compatible 12:00: with patient [place] with 00 AM insurance Health patient EDT Care) insurance SHOWER UNK 09/08/ active SHOWER CHAIR e CW3 CHAIR 2015 compatible ([place] compatible 12:00: with patient [place] with 00 AM insurance Health patient EDT Care) insurance SHOWER UNK 09/08/ active SHOWER CHAIR e CW3 CHAIR 2016 compatible ([place] compatible 12:00: with patient [place] with 00 AM insurance Health patient EDT Care) insurance SHOWER UNK 05/05/ suspend SHOWER CHAIR eCW3 CHAIR 2016 ed compatible ([place] compatible 12:00: with patient [place] with 00 AM insurance Health patient EDT Care) insurance SHOWER UNK 05/05/ suspend SHOWER CHAIR eCW3 CHAIR 2016 ed compatible ([place] compatible 12:00: with patient [place] with 00 AM insurance Health patient EDT Care) insurance SHOWER UNK 05/05/ suspend SHOWER CHAIR eCW3 CHAIR 2016 ed compatible ([place] compatible 12:00: with patient [place] with 00 AM insurance Health patient EDT Care) insurance Nebulizer UNK 07/14/ active Nebulizer e CW3 compatible 2015 compatible ([place] with 12:00: with patient [place] patient 00 AM insurance Health insurance EST Care) Nebulizer UNK 07/14/ active Nebulizer e CW3 compatible 2015 compatible ([place] with 12:00: with patient [place] patient 00 AM insurance Health insurance EST Care) Nebulizer UNK 07/14/ active Nebulizer e CW3 compatible 2015 compatible ([place] with 12:00: with patient [place] patient 00 AM insurance Health insurance EST Care) Nebulizer UNK 07/14/ active Nebulizer e CW3 compatible 2015 compatible ([place] with 12:00: with patient [place] patient 00 AM insurance Health insurance EST Care) Nebulizer UNK 07/14/ active Nebulizer e CW3 compatible 2015 compatible ([place] with 12:00: with patient [place] patient 00 AM insurance Health insurance EST Care) Nebulizer UNK 07/14/ active Nebulizer e CW3 compatible 2015 compatible ([place] with 12:00: with patient [place] patient 00 AM insurance Health insurance EST Care) Nebulizer UNK 07/14/ active Nebulizer e CW3 compatible 2015 compatible ([place] with 12:00: with patient [place] patient 00 AM insurance Health insurance EST Care) Nebulizer UNK 07/14/ active Nebulizer e CW3 compatible 2015 compatible ([place] with 12:00: with patient [place] patient 00 AM insurance Health insurance EST Care) Nebulizer UNK 07/14/ active Nebulizer e CW3 compatible 2015 compatible ([place] with 12:00: with patient [place] patient 00 AM insurance Health insurance EST Care) Nebulizer UNK 07/14/ active Nebulizer e CW3 compatible 2015 compatible ([place] with 12:00: with patient [place] patient 00 AM insurance Health insurance EST Care) Nebulizer UNK 07/14/ active Nebulizer e CW3 compatible 2015 compatible ([place] with 12:00: with patient [place] patient 00 AM insurance Health insurance EST Care) Nebulizer UNK 07/14/ active Nebulizer e CW3 compatible 2015 compatible ([place] with 12:00: with patient [place] patient 00 AM insurance Health insurance EST Care) Nebulizer UNK 07/14/ active Nebulizer e CW3 compatible 2015 compatible ([place] with 12:00: with patient [place] patient 00 AM insurance Health insurance EST Care) Nebulizer UNK 07/14/ active Nebulizer e CW3 compatible 2015 compatible ([place] with 12:00: with patient [place] patient 00 AM insurance Health insurance EST Care) Nebulizer UNK 07/14/ active Nebulizer e CW3 compatible 2015 compatible ([place] with 12:00: with patient [place] patient 00 AM insurance Health insurance EST Care) Nebulizer UNK 07/14/ active Nebulizer e CW3 compatible 2015 compatible ([place] with 12:00: with patient [place] patient 00 AM insurance Health insurance EST Care) Nebulizer UNK 07/14/ active Nebulizer e CW3 compatible 2015 compatible ([place] with 12:00: with patient [place] patient 00 AM insurance Health insurance EST Care) Nebulizer UNK 07/14/ active Nebulizer e CW3 compatible 2015 compatible ([place] with 12:00: with patient [place] patient 00 AM insurance Health insurance EST Care) Nebulizer UNK 07/14/ active Nebulizer e CW3 compatible 2015 compatible ([place] with 12:00: with patient [place] patient 00 AM insurance Health insurance EST Care) Nebulizer UNK 07/14/ active Nebulizer e CW3 compatible 2015 compatible ([place] with 12:00: with patient [place] patient 00 AM insurance Health insurance EST Care) Nebulizer UNK 07/14/ active Nebulizer e CW3 compatible 2015 compatible ([place] with 12:00: with patient [place] patient 00 AM insurance Health insurance EST Care) Nebulizer UNK 07/14/ active Nebulizer e CW3 compatible 2015 compatible ([place] with 12:00: with patient [place] patient 00 AM insurance Health insurance EST Care) Nebulizer UNK 07/14/ active Nebulizer e CW3 compatible 2015 compatible ([place] with 12:00: with patient [place] patient 00 AM insurance Health insurance EST [facility]) Nebulizer UNK 07/14/ active Nebulizer e CW3 compatible 2015 compatible ([place] with 12:00: with patient [place] patient 00 AM insurance Health insurance EST Care) Nebulizer UNK 07/14/ active Nebulizer e CW3 compatible 2015 compatible ([place] with 12:00: with patient [place] patient 00 AM insurance Health insurance EST Care) Nebulizer UNK 07/14/ active Nebulizer e CW3 compatible 2015 compatible ([place] with 12:00: with patient [place] patient 00 AM insurance Health insurance EST [facility]) Albuterol Albute active Albuterol e CW3 0.83 MG/ML rol Sulfate (2.5 ( [place] Inhalant Sulfat MG/3ML) [place] Solution e (2.5 0.083% Health Albuterol MG/3ML Care) Sulfate ) (2.5 0.083% MG/3ML) 0.083% Acetaminoph Oxycod suspend Oxycodon e-Ac eCW3 en 325 MG / one-Ac ed etaminophen ([place] Oxycodone etamin 7.5-325 MG [facility] de 7.5 MG 7.5-32 Care) Oral Tablet 5 MG Oxycodone-A cetaminophe n 7.5-325 MG pregabalin Lyrica 2.0 active Lyrica 100 eCW3 100 MG Oral 100 MG {caps MG ([place] Capsule ule} [place] [Lyrica] Health Lyrica 100 Care) MG Omeprazole Omepra 1.0 active Omeprazole eCW3 20 MG zole {caps 20 mg ([place] Delayed 20 mg ule} [place] Release Health Oral Care) Capsule Omeprazole 20 mg Fluticasone Flutic 1.0 suspend Fluticas one eCW3 Propionate asone {puff ed Propionate ( [place] 50 MCG/ACT Propio _in_e 50 MCG/ACT [place] nilo ach_n Health 50 ostri Care) MCG/AC l} T Omeprazole Omepra 1.0 active Omeprazole eCW3 20 MG zole {caps 20 mg ([place] Delayed 20 mg ule} [place] Release [facility] Oral Care) Capsule Omeprazole 20 mg 120 ACTUAT Advair 2.0 active Advair HFA eCW3 Fluticasone HFA {puff 230-21 ([place] propionate 230-21 s} MCG/ACT Rive r 0.23 MCG/AC Health MG/ACTUAT / T Care) salmeterol 0.021 MG/ACTUAT Metered Dose Inhaler [Advair] Advair HFA 230-21 MCG/ACT Albuterol Albute active Albuterol e CW3 0.83 MG/ML rol Sulfate (2.5 ( [place] Inhalant Sulfat MG/3ML) [place] Solution e (2.5 0.083% Health Albuterol MG/3ML Care) Sulfate ) (2.5 0.083% MG/3ML) 0.083% aripiprazol Aripip 1.0 active Aripipraz ole eCW3 e 10 MG razole {tabl 10 MG ([place] Oral Tablet 10 MG et} [place] Aripiprazol Health e 10 MG Care) Calcium 600 Calciu 1.0 active Calcium 6 00 eCW3 + D 600-200 m 600 {tabl + D 600-200 ([place] MG-UNIT + D et} MG-UNIT [place] 600-20 Health 0 Care) MG-UNI T Albuterol Albute active Albuterol e CW3 0.83 MG/ML rol Sulfate (2.5 ( [place] Inhalant Sulfat MG/3ML) [place] Solution e (2.5 0.083% Health Albuterol MG/3ML Care) Sulfate ) (2.5 0.083% MG/3ML) 0.083% pregabalin Lyrica 2.0 active Lyrica 100 eCW3 100 MG Oral 100 MG {caps MG ([place] Capsule ule} [place] [Lyrica] Health Lyrica 100 Care) MG lamotrigine Lamotr 1.0 active Lamotrigi ne eCW3 200 MG Oral igine {tabl 200 mg ([place] Tablet 200 mg et} [place] Lamotrigine Health 200 mg Care) Hydroxyzine HydrOX 1.0 active HydrOXYzi ne eCW3 Pamoate 100 Yzine {caps Pamoate 100 ([place] MG Oral Pamoat ule} mg [place] Capsule e 100 Health HydrOXYzine mg Care) Pamoate 100 mg Blood Blood active Blood eCW3 Glucose Glucos Glucose Test ([place] [facility] Test - e Test - [facility]) Blood Blood active Blood eCW3 Glucose Glucos Glucose ([place] Monitor e Monitor [place] System [facility] Health w/Device r w/Device Care) System w/Babita ce Vitamin D UNK 1.0 active Vitamin D eCW 3 62250 UNIT {caps 48431 UNIT (H udson ule} [facility]) montelukast Singul 1.0 active Singulair 10 eCW3 10 MG Oral air 10 {tabl mg ([place] Tablet mg et_in [place] [Singulair] _[facility]_ [facility] Singulair eveni Care) 10 mg ng} ALBUTEROL UNK suspend ALBUTEROL eC W3 SULFATE ed SULFATE ([place] 0.083% 2.5 0.083% 2.5 [place] mg/3 ml mg/3 ml [facility]) Acetaminoph Oxycod suspend Oxycodon e-Ac eCW3 en 325 MG / one-Ac ed etaminophen ([place] Oxycodone etamin 7.5-325 MG [facility] de 7.5 MG 7.5-32 Care) Oral Tablet 5 MG Oxycodone-A cetaminophe n 7.5-325 MG montelukast Singul 1.0 active Singulair 10 eCW3 10 MG Oral air 10 {tabl mg ([place] Tablet mg et_in [place] [Singulair] _[facility]_ [facility] Singulair eveni Care) 10 mg ng} Omeprazole Omepra 1.0 active Omeprazole eCW3 20 MG zole {caps 20 mg ([place] Delayed 20 mg ule} [facility] Oral Care) Capsule Omeprazole 20 mg Hydroxyzine HydrOX 1.0 active HydrOXYzi ne eCW3 Pamoate 100 Yzine {caps Pamoate 100 ([place] MG Oral Pamoat ule} mg [place] Capsule e 100 Health HydrOXYzine mg Care) Pamoate 100 mg Ibuprofen Ibupro active Ibuprofen e CW3 800 MG Oral fen 800 [facility]) Daily-[place] Daily- active Daily-[place] - eCW3 - [place] - ([facility]) Fluticasone Flutic 1.0 active Fluticaso ne eCW3 Propionate asone {puff Propionate ( [place] 50 MCG/ACT Propio _in_e 50 MCG/ACT [place] nilo ach_n Health 50 ostri Care) MCG/AC l} T Zolpidem Ambien 1.0 active Ambien 10 mg eCW3 tartrate 10 10 mg {tabl ([place] MG Oral et_at [place] Tablet _bedt Health [Ambien] madalyn} Care) Ambien 10 mg lamotrigine Lamotr 1.0 active Lamotrigi ne eCW3 200 MG Oral igine {tabl 200 mg ([facility] son Tablet 200 mg et} [place] Lamotrigine Health 200 mg Care) Acetaminoph Oxycod active Oxycodone -Ac eCW3 en 325 MG / one-Ac etaminophen ([place] Oxycodone etamin 7.5-325 MG Ri aleks Hydrochlori [facility] Health de 7.5 MG 7.5-32 Care) Oral Tablet 5 MG Oxycodone-A cetaminophe n 7.5-325 MG Lancets - Lancet active Lancets - e CW3 s - ([facility]) Blood Blood active Blood eCW3 Glucose Glucos Glucose Test ( udson Test - e Test - [facility]) Omeprazole Omepra 1.0 active Omeprazole eCW3 20 MG zole {caps 20 mg ([place] Delayed 20 mg ule} [facility] Oral Care) Capsule Omeprazole 20 mg ALBUTEROL UNK suspend ALBUTEROL eC W3 SULFATE ed SULFATE ([place] 0.083% 2.5 0.083% 2.5 [place] mg/3 ml mg/3 ml Health Care) pregabalin Lyrica 2.0 active Lyrica 100 eCW3 100 MG Oral 100 MG {caps MG ([place] Capsule ule} [place] [Lyrica] [facility] Lyrica 100 Care) MG Lancets - Lancet active Lancets - e CW3 s - ([facility]) montelukast Singul 1.0 active Singulair 10 eCW3 10 MG Oral air 10 {tabl mg ([place] Tablet mg et_in [place] [Singulair] _the_ Health Singulair eveni Care) 10 mg ng} Vitamin D UNK 1.0 active Vitamin D eCW 3 76280 UNIT {caps 85476 UNIT (H udson ule} [facility]) Blood Blood active Blood eCW3 Glucose Glucos Glucose ([place] Monitor e Monitor [place] [facility] Health w/Device r w/Device Care) System w/Babita ce Fluticasone Flutic 1.0 active Fluticaso ne eCW3 Propionate asone {puff Propionate ( [place] 50 MCG/ACT Propio _in_e 50 MCG/ACT [place] nilo ach_n Health 50 ostri Care) MCG/AC l} T Acetaminoph Oxycod active Oxycodone -Ac eCW3 en 325 MG / one-Ac etaminophen ([place] Oxycodone etamin 7.5-325 MG Ri aleks [facility] oph Health de 7.5 MG 7.5-32 Care) Oral Tablet 5 MG Oxycodone-A cetaminophe n 7.5-325 MG 120 ACTUAT Advair 2.0 active Advair HFA eCW3 Fluticasone HFA {puff 230-21 ([place] propionate 230-21 s} MCG/ACT Rive r 0.23 MCG/AC Health MG/ACTUAT / T Care) salmeterol 0.021 MG/ACTUAT Metered Dose Inhaler [Advair] Advair HFA 230-21 MCG/ACT Lancets - Lancet active Lancets - e CW3 s - ([facility]) Fluticasone Flutic 1.0 active Fluticaso ne eCW3 Propionate asone {puff Propionate ( [place] 50 MCG/ACT Propio _in_e 50 MCG/ACT [place] nilo ach_n Health 50 ostri Care) MCG/AC l} T lamotrigine Lamotr 1.0 active Lamotrigi ne eCW3 200 MG Oral igine {tabl 200 mg ([place] Tablet 200 mg et} [place] Lamotrigine Health 200 mg Care) ALBUTEROL UNK suspend ALBUTEROL eC W3 SULFATE ed SULFATE ([place] 0.083% 2.5 0.083% 2.5 [place] mg/3 ml mg/3 ml Health Care) Isopropyl Alcoho active Alcohol Pre p eCW3 Alcohol 0.7 l Prep 70 % ([place] ML/ML 70 % [place] Medicated [facility] Pad Alcohol Care) Prep 70 % Albuterol Albute active Albuterol e CW3 0.83 MG/ML rol Sulfate (2.5 ( [place] Inhalant Sulfat MG/3ML) [place] Solution e (2.5 0.083% Health Albuterol MG/3ML Care) Sulfate ) (2.5 0.083% MG/3ML) 0.083% Vitamin D UNK 1.0 active Vitamin D eCW 3 08036 UNIT {caps 49747 UNIT (H udson ule} [facility]) Fluticasone Flutic 1.0 active Fluticaso ne eCW3 Propionate asone {puff Propionate ( [place] 50 MCG/ACT Propio _in_e 50 MCG/ACT [place] nilo ach_n Health 50 ostri Care) MCG/AC l} T Daily-[place] Daily- active Daily-[place] - eCW3 - [place] - ([facility]) ALBUTEROL UNK suspend ALBUTEROL eC W3 SULFATE ed SULFATE ([place] 0.083% 2.5 0.083% 2.5 [place] mg/3 ml mg/3 ml Health Care) Blood Blood active Blood eCW3 Glucose Glucos Glucose ([place] Monitor e Monitor [place] System [facility] [facility] Health w/Device r w/Device Care) System w/Babita ce Acetaminoph oxyCOD 1 complet Jose Eduardo nt en 325 MG / ONE-ac ed Aki s [facility] etamin [facility] MG 10 Oral Tablet mg-325 oxyCODONE-a mg cetaminophe Tablet n 10 mg-325 , mg Tablet, Ordere Ordered By: d By: Med Hu, MDDirection MDDire s: 1 tablet ctions oral every : 1 eight hours tablet PRN pain oral every eight hours PRN pain albuterol UNK suspend albuterol eC W3 sulfate ed sulfate ([place] 0.083% 2.5 0.083% 2.5 [place] mg/3 ml mg/3 ml Health Care) Calcium 600 Calciu 1.0 active Calcium 6 00 eCW3 + D 600-200 m 600 {tabl + D 600-200 ([place] MG-UNIT + D et} MG-UNIT [place] 600-20 Health 0 [facility]) MG-UNI T Daily-[place] Daily- active Daily-[place] - eCW3 - [place] - ([facility]) Isopropyl Alcoho active Alcohol Pre p eCW3 Alcohol 0.7 l Prep 70 % ([place] ML/ML 70 % [place] Medicated [facility] Pad Alcohol Care) Prep 70 % aripiprazol Aripip 1.0 active Aripipraz ole eCW3 e 10 MG razole {tabl 10 MG ([place] Oral Tablet 10 MG et} [place] Aripiprazol Health e 10 MG Care) Multivitami UNK active Multivitami n eCW3 ns - s - ([facility]) Furosemide Furose 1.0 active Furosemide eCW3 40 MG Oral mide {tabl 40 mg ([place] Tablet 40 mg et} [place] Furosemide Health 40 mg Care) Blood Blood active Blood eCW3 Glucose Glucos Glucose Test ([facility] Test - e Test - [facility]) Blood Blood active Blood eCW3 Glucose Glucos Glucose Test ([facility] Test - e Test - [facility]) Furosemide Furose 1.0 active Furosemide eCW3 40 MG Oral mide {tabl 40 mg ([place] Tablet 40 mg et} [place] Furosemide Health 40 mg Care) Acetaminoph Oxycod suspend Oxycodon e-Ac eCW3 en 325 MG / one-Ac ed etaminophen ([place] Oxycodone etamin 7.5-325 MG [facility] de 7.5 MG 7.5-32 Care) Oral Tablet 5 MG Oxycodone-A cetaminophe n 7.5-325 MG montelukast Singul 1.0 active Singulair 10 eCW3 10 MG Oral air 10 {tabl mg ([place] Tablet mg et_in [place] [Singulair] _[facility]_ [facility] Singula eveni Care) 10 mg ng} Blood Blood active Blood eCW3 Glucose Glucos Glucose Test ([facility] Test - e Test - [facility]) Furosemide Furose 1.0 active Furosemide eCW3 40 MG Oral mide {tabl 40 mg ([place] Tablet 40 mg et} [place] Furosemide Health 40 mg Care) montelukast Singul 1.0 active Singulair 10 eCW3 10 MG Oral air 10 {tabl mg ([place] Tablet mg et_in [place] [Singulair] _[facility] Singula eveni Care) 10 mg ng} Vitamin D UNK 1.0 active Vitamin D eCW 3 42804 UNIT {caps 86679 UNIT (H udson ule} [facility]) Loratadine lorata 1 complet Lety t 10 MG Oral dine ed [place] Tablet 10 mg Medical loratadine Tablet Center 10 mg , Tablet, Ordere Ordered By: d By: Asaf Crump-Orlin Safo-janis Wing, MDDirection MDDire s: 1 tablet ctions oral daily : 1 tablet oral daily Vitamin D UNK 1.0 active Vitamin D eCW 3 28075 UNIT {caps 35191 UNIT (H udson ul} [facility]) lamotrigine lamoTR 1 complet Jose Eduardo nt 200 MG Oral Igine ed [place] Tablet 200 mg Medical lamoTRIgine Tablet Center 200 mg , Tablet, Ordere Ordered By: d By: Asaf Crump-Orlinjanis Dominguez, MDDirection MDDire s: 1 tablet ctions oral daily : 1 tablet oral daily lamotrigine Lamotr 1.0 active Lamotrigi ne eCW3 200 MG Oral igine {tabl 200 mg ([place] Tablet 200 mg et} [place] Lamotrigine Health 200 mg Care) Zolpidem Ambien 1.0 active Ambien 10 mg eCW3 tartrate 10 10 mg {tabl ([place] MG Oral et_at [place] Tablet _bedt Health [Ambien] madalyn} Care) Ambien 10 mg Multivitami UNK active Multivitami n eCW3 ns - s - ([facility]) Fluticasone Flutic 1.0 suspend Fluticas one eCW3 Propionate asone {puff ed Propionate ( [place] 50 MCG/ACT Propio _in_e 50 MCG/ACT [place] nilo ach_n Health 50 ostri Care) MCG/AC l} T Calcium 600 Calciu 1.0 active Calcium 6 00 eCW3 + D 600-200 m 600 {tabl + D 600-200 ([place] MG-UNIT + D et} MG-UNIT [place] 600-20 Health 0 Care) MG-UNI T Vitamin D UNK 1.0 active Vitamin D eCW 3 96911 UNIT {caps 11367 UNIT (H udson ule} [facility]) aripiprazol Aripip 1.0 active Aripipraz ole eCW3 e 10 MG razole {tabl 10 MG ([place] Oral Tablet 10 MG et} [place] Aripiprazol Health e 10 MG Care) Omeprazole Omepra 1.0 active Omeprazole eCW3 20 MG zole {caps 20 mg ([place] Delayed 20 mg ule} [place] Release Health Oral Care) Capsule Omeprazole 20 mg Zolpidem Ambien 1.0 active Ambien 10 mg eCW3 tartrate 10 10 mg {tabl ([place] MG Oral et_at [place] Tablet _[facility] [Ambien] madalyn} Care) Ambien 10 mg Isopropyl Alcoho active Alcohol Pre p eCW3 Alcohol 0.7 l Prep 70 % ([place] ML/ML 70 % [place] Medicated Health [facility] Alcohol Care) Prep 70 % Multivitami UNK active Multivitami n eCW3 ns - s - ([facility]) Zolpidem Ambien 1.0 active Ambien 10 mg eCW3 tartrate 10 10 mg {tabl ([place] MG Oral et_at [place] Tablet _[facility] [Ambien] madalyn} Care) Ambien 10 mg Calcium 600 Calciu 1.0 active Calcium 6 00 eCW3 + D 600-200 m 600 {tabl + D 600-200 ([place] MG-UNIT + D et} MG-UNIT [place] 600-20 Health 0 Care) MG-UNI T Lancets - Lancet active Lancets - e CW3 s - ([facility]) Furosemide Furose 1.0 active Furosemide eCW3 40 MG Oral mide {tabl 40 mg ([place] Tablet 40 mg et} [place] Furosemide Health 40 mg Care) Blood Blood active Blood eCW3 Glucose Glucos Glucose ([place] Monitor e Monitor [place] System [facility] [facility] Health w/Device r w/Device Care) System w/Babita ce montelukast Singul 1.0 active Singulair 10 eCW3 10 MG Oral air 10 {tabl mg ([place] Tablet mg et_in [place] [Singulair] _the_ Health Singulair eveni Care) 10 mg ng} Isopropyl Alcoho active Alcohol Pre p eCW3 Alcohol 0.7 l Prep 70 % ([place] ML/ML 70 % [place] Medicated [facility] Pad Alcohol Care) Prep 70 % Daily-[place] Daily- active Daily-[place] - eCW3 - [place] - ([facility]) Vitamin D UNK 1.0 suspend Vitamin D eC W3 25779 UNIT {[place] 367[address] UNIT (H udson ule} [facility]) Lancets - Lancet active Lancets - e CW3 s - ([facility]) Multivitami UNK active Multivitami n eCW3 ns - s - ([facility]) pregabalin Lyrica 2.0 active Lyrica 100 eCW3 100 MG Oral 100 MG {caps MG ([place] Capsule ule} [place] [Lyrica] [facility] Lyrica 100 Care) MG Isopropyl Alcoho active Alcohol Pre p eCW3 Alcohol 0.7 l Prep 70 % ([place] ML/ML 70 % [place] Medicated [facility] Pad Alcohol Care) Prep 70 % Hydroxyzine HydrOX 1.0 active HydrOXYzi ne eCW3 Pamoate 100 Yzine {caps Pamoate 100 ([place] MG Oral Pamoat ule} mg [place] Capsule e 100 Health HydrOXYzine mg Care) Pamoate 100 mg lamotrigine Lamotr 1.0 active Lamotrigi ne eCW3 200 MG Oral igine {tabl 200 mg ([place] son Tablet 200 mg et} [place] Lamotrigine Health 200 mg Care) Blood Blood active Blood eCW3 Glucose Glucos Glucose Test ( udson Test - e Test - [facility]) ALBUTEROL UNK suspend ALBUTEROL eC W3 SULFATE ed SULFATE ([place] 0.083% 2.5 0.083% 2.5 [place] mg/3 ml mg/3 ml [facility] Care) Albuterol Albute active Albuterol e CW3 0.83 MG/ML rol Sulfate (2.5 ( [place] Inhalant Sulfat MG/3ML) [place] Solution e (2.5 0.083% Health Albuterol MG/3ML Care) Sulfate ) (2.5 0.083% MG/3ML) 0.083% 120 ACTUAT Advair 2.0 active Advair HFA eCW3 Fluticasone HFA {puff 230-21 ([place] propionate 230-21 s} MCG/ACT Rive r 0.23 MCG/AC Health MG/ACTUAT / T Care) salmeterol 0.021 MG/ACTUAT Metered Dose Inhaler [Advair] Advair HFA 230-21 MCG/ACT Lancets - Lancet active Lancets - e CW3 s - ([facility]) Blood Blood active Blood eCW3 Glucose Glucos Glucose Test (H udson Test - e Test - [facility]) Calcium 600 Calciu 1.0 active Calcium 6 00 eCW3 + D 600-200 m 600 {tabl + D 600-200 ([place] MG-UNIT + D et} MG-UNIT [place] 600-20 Health 0 Care) MG-UNI T lamotrigine Lamotr 1.0 active Lamotrigi ne eCW3 200 MG Oral igine {tabl 200 mg ([place] son Tablet 200 mg et} [place] Lamotrigine Health 200 mg Care) montelukast Singul 1.0 active Singulair 10 eCW3 10 MG Oral air 10 {tabl mg ([place] Tablet mg et_in [place] [Singulair] _the_ Health Singulair eveni Care) 10 mg ng} aripiprazol Aripip 1.0 active Aripipraz ole eCW3 e 10 MG razole {tabl 10 MG ([place] Oral Tablet 10 MG et} [place] Aripiprazol Health e 10 MG Care) Omeprazole Omepra 1.0 active Omeprazole eCW3 20 MG zole {caps 20 mg ([place] Delayed 20 mg ule} [facility]) Capsule Omeprazole 20 mg Daily-[place] Daily- active Daily-[place] - eCW3 - [place] - ([facility]) Omeprazole Omepra 1.0 active Omeprazole eCW3 20 MG zole {caps 20 mg ([place] Delayed 20 mg ule} [facility]) Capsule Omeprazole 20 mg Zolpidem Ambien 1.0 active Ambien 10 mg eCW3 tartrate 10 10 mg {tabl ([place] MG Oral et_at [place] Tablet _bedt Health [Ambien] madalyn} Care) Ambien 10 mg Lancets - Lancet active Lancets - e CW3 s - ([facility]) Furosemide Furose 1.0 active Furosemide eCW3 40 MG Oral mide {tabl 40 mg ([place] Tablet 40 mg et} [place] Furosemide Health 40 mg Care) Vitamin D UNK 1.0 active Vitamin D eCW 3 11767 UNIT {caps 92155 UNIT (H udson ule} [facility]) Blood Blood active Blood eCW3 Glucose Glucos Glucose Test ([facility] Test - e Test - [facility]) gerard Singul 1.0 active Singulair 10 eCW3 10 MG Oral air 10 {tabl mg ([place] Tablet mg et_in [place] [Singulair] _the_ Health Singulair eveni Care) 10 mg ng} Acetaminoph Oxycod suspend Oxycodon e-Ac eCW3 en 325 MG / one-Ac ed etaminophen ([place] Oxycodone etamin 7.5-325 MG Ri aleks Hydrochlori oph Health de 7.5 MG 7.5-32 Care) Oral Tablet 5 MG Oxycodone-A cetaminophe n 7.5-325 MG Multivitami UNK active Multivitami n eCW3 ns - s - ([facility]) Hydroxyzine HydrOX 1.0 active HydrOXYzi ne eCW3 Pamoate 100 Yzine {caps Pamoate 100 ([place] MG Oral Pamoat ule} mg [place] Capsule e 100 Health HydrOXYzine mg Care) Pamoate 100 mg Zolpidem Ambien 1.0 active Ambien 10 mg eCW3 tartrate 10 10 mg {tabl ([place] MG Oral et_at [place] Tablet _bed Health [Ambien] madalyn} Care) Ambien 10 mg ALBUTEROL UNK active ALBUTEROL eCW 3 SULFATE SULFATE ([place] 0.083% 2.5 0.083% 2.5 Joni [place] mg/3 ml mg/3 ml Health Care) Zolpidem Ambien 1.0 active Ambien 10 mg eCW3 tartrate 10 10 mg {tabl ([place] MG Oral et_at [place] Tablet _bedt Health [Ambien] madalyn} Care) Ambien 10 mg aripiprazol Aripip 1.0 active Aripipraz ole eCW3 e 10 MG razole {tabl 10 MG ([place] Oral Tablet 10 MG et} [place] Aripiprazol Health e 10 MG Care) ALBUTEROL UNK suspend ALBUTEROL eC W3 SULFATE ed SULFATE ([place] 0.083% 2.5 0.083% 2.5 [place] mg/3 ml mg/3 ml Health Care) lamotrigine Lamotr 1.0 active Lamotrigi ne eCW3 200 MG Oral igine {tabl 200 mg ([place] Tablet 200 mg et} [place] Lamotrigine Health 200 mg Care) Calcium 600 Calciu 1.0 active Calcium 6 00 eCW3 + D 600-200 m 600 {tabl + D 600-200 ([place] MG-UNIT + D et} MG-UNIT [place] 600-[address]) MG-UNI T Acetaminoph Oxycod active Oxycodone -Ac eCW3 en 325 MG / one-Ac etaminophen ([place] Oxycodone etamin 7.5-325 MG Ri aleks Hydrochlori oph Health de 7.5 MG 7.5-32 Care) Oral Tablet 5 MG Oxycodone-A cetaminophe n 7.5-325 MG montelukast Singul 1.0 active Singulair 10 eCW3 10 MG Oral air 10 {tabl mg ([place] Tablet mg et_in [place] [Singulair] _the_ [facility] Singulair eveni Care) 10 mg ng} Calcium 600 Calciu 1.0 active Calcium 6 00 eCW3 + D 600-200 m 600 {tabl + D 600-200 ([place] MG-UNIT + D et} MG-UNIT [place] 600-[address]) MG-UNI T Acetaminoph Oxycod active Oxycodone -Ac eCW3 en 325 MG / one-Ac etaminophen ([place] Oxycodone etamin 7.5-325 MG [facility] 7.5-32 Care) Oral Tablet 5 MG Oxycodone-A cetaminophe n 7.5-325 MG Omeprazole Omepra 1.0 active Omeprazole eCW3 20 MG zole {caps 20 mg ([place] Delayed 20 mg ule} [facility] Health Oral Care) Capsule Omeprazole 20 mg lamotrigine Lamotr 1.0 active Lamotrigi ne eCW3 200 MG Oral igine {tabl 200 mg ([place] Tablet 200 mg et} [place] Lamotrigine Health 200 mg Care) Blood Blood active Blood eCW3 Glucose Glucos Glucose Test ([place] Test - e Test - [facility]) Hydroxyzine HydrOX 1.0 active HydrOXYzi ne eCW3 Pamoate 100 Yzine {caps Pamoate 100 ([place] MG Oral Pamoat ule} mg [place] Capsule e 100 Health HydrOXYzine mg Care) Pamoate 100 mg ALBUTEROL UNK active ALBUTEROL eCW 3 SULFATE SULFATE ([place] 0.083% 2.5 0.083% 2.5 [place] mg/3 ml mg/3 ml Health Care) Albuterol Albute suspend Albuterol eCW3 0.83 MG/ML rol ed Sulfate (2.5 ( [place] Inhalant Sulfat MG/3ML) [place] Solution e (2.5 0.083% Health Albuterol MG/3ML Care) Sulfate ) (2.5 0.083% MG/3ML) 0.083% ALBUTEROL UNK suspend ALBUTEROL eC W3 SULFATE ed SULFATE ([place] 0.083% 2.5 0.083% 2.5 [place] mg/3 ml mg/3 ml Health Care) Furosemide Furose 1.0 active Furosemide eCW3 40 MG Oral mide {tabl 40 mg ([place] Tablet 40 mg et} [place] Furosemide Health 40 mg Care) Fluticasone Flutic 1.0 active Fluticaso ne eCW3 Propionate asone {puff Propionate ( [place] 50 MCG/ACT Propio _in_e 50 MCG/ACT [place] nilo ach_n Health 50 ostri Care) MCG/AC l} T Hydroxyzine HydrOX 1.0 active HydrOXYzi ne eCW3 Pamoate 100 Yzine {caps Pamoate 100 ([place] MG Oral Pamoat ule} mg [place] Capsule e 100 Health HydrOXYzine mg Care) Pamoate 100 mg calcium complet Calcium 600 Sa int carbonate-v ed + D(3) [place] itamin D3 Medical ([facility] 600 + D(3)) 600 mg calcium (1,500 mg)-200 unit Tablet Omeprazole Omepra 1.0 active Omeprazole eCW3 20 MG zole {caps 20 mg ([place] Delayed 20 mg ule} [place] Release Health Oral Care) Capsule Omeprazole 20 mg Zolpidem Ambien 1.0 active Ambien 10 mg eCW3 tartrate 10 10 mg {tabl ([place] MG Oral et_at [place] Tablet _bedt Health [Ambien] madalyn} Care) Ambien 10 mg Blood Blood active Blood eCW3 Glucose Glucos Glucose ([place] Monitor e Monitor [place] [facility] Health w/Device r w/Device Care) System w/Babita ce 120 ACTUAT Advair 2.0 active Advair HFA eCW3 Fluticasone HFA {puff 230-21 ([place] propionate 230-21 s} MCG/ACT Rive r 0.23 MCG/AC Health MG/ACTUAT / T Care) salmeterol 0.021 MG/ACTUAT Metered Dose Inhaler [Advair] Advair HFA 230-21 MCG/ACT Daily-[place] Daily- active Daily-[place] - eCW3 - [place] - ([facility]) pregabalin Lyrica 1.0 active Lyrica 150 eCW3 150 MG Oral 150 MG {caps MG ([place] Capsule ule} [place] [Lyrica] [facility] Lyrica 150 Care) MG Blood Blood active Blood eCW3 Glucose Glucos Glucose ([place] Monitor e Monitor [place] [facility] Health w/Device r w/Device Care) System w/Babita ce pregabalin Lyrica 1.0 active Lyrica 150 eCW3 150 MG Oral 150 MG {caps MG ([place] Capsule ule} [place] [Lyric] [facility] Lyrica 150 Care) MG Vitamin D UNK 1.0 active Vitamin D eCW 3 59320 UNIT {caps 26233 UNIT ([place] udson ule} [facility] Care) Vitamin D UNK 1.0 active Vitamin D eCW 3 40973 UNIT {caps 00306 UNIT (H udson ule} [facility]) Blood Blood active Blood eCW3 Glucose Glucos Glucose ([place] Monitor e Monitor [facility] Health w/Device r w/Device Care) System w/Babita ce Daily-[place] Daily- active Daily-[place] - eCW3 - [place] - ([facility]) montelukast Singul 1.0 active Singulair 10 eCW3 10 MG Oral air 10 {tabl mg ([place] Tablet mg et_in [place] [Singulair] _the_ Health Singulair eveni Care) 10 mg ng} Blood Blood active Blood eCW3 Glucose Glucos Glucose ([place] Monitor e Monitor [place] [facility] Health w/Device r w/Device Care) System w/Babita ce aripiprazol Aripip 1.0 active Aripipraz ole eCW3 e 10 MG razole {tabl 10 MG ([place] Oral Tablet 10 MG et} [place] Aripiprazol Health e 10 MG Care) montelukast Singul 1.0 active Singulair 10 eCW3 10 MG Oral air 10 {tabl mg ([place] Tablet mg et_in [place] [Singulair] _the_ Health Singulair eveni Care) 10 mg ng} Isopropyl Alcoho active Alcohol Pre p eCW3 Alcohol 0.7 l Prep 70 % ([place] ML/ML 70 % [place] Medicated Health Pad Alcohol Care) Prep 70 % Unknown complet eCW2 Medications ed ([facility]) 120 ACTUAT Advair 2.0 active Advair HFA eCW3 Fluticasone HFA {puff 230-21 ([place] propionate 230-21 s} MCG/ACT Rive r 0.23 MCG/AC Health MG/ACTUAT / T Care) salmeterol 0.021 MG/ACTUAT Metered Dose Inhaler [Advair] Advair HFA 230-21 MCG/ACT Omeprazole Omepra 1.0 active Omeprazole eCW3 20 MG zole {caps 20 mg ([place] Delayed 20 mg ule} [place] Release Health Oral Care) Capsule Omeprazole 20 mg pregabalin Lyrica 2.0 active Lyrica 100 eCW3 100 MG Oral 100 MG {caps MG ([place] Capsule ule} [place] [Lyrica] [facility] Lyrica 100 Care) MG aripiprazol Aripip 1.0 active Aripipraz ole eCW3 e 10 MG razole {tabl 10 MG ([place] Oral Tablet 10 MG et} [place] Aripiprazol Health e 10 MG Care) Fluticasone Flutic 1.0 active Fluticaso ne eCW3 Propionate asone {puff Propionate ( [place] 50 MCG/ACT Propio _in_e 50 MCG/ACT [place] nilo ach_n Health 50 ostri Care) MCG/AC l} T No Known complet eCW2 Medications ed ([facility]) aripiprazol Aripip 1.0 active Aripipraz ole eCW3 e 10 MG razole {tabl 10 MG ([place] Oral Tablet 10 MG et} [place] Aripiprazol Health e 10 MG Care) 120 ACTUAT Advair 2.0 active Advair HFA eCW3 Fluticasone HFA {puff 230-21 ([facility] on propionate 230-21 s} MCG/ACT Rive r 0.23 MCG/AC Health MG/ACTUAT / T Care) salmeterol 0.021 MG/ACTUAT Metered Dose Inhaler [Advair] Advair HFA 230-21 MCG/ACT Zolpidem Ambien 1.0 active Ambien 10 mg eCW3 tartrate 10 10 mg [facility]abl [facility] [place] Tablet _bedt Health [Ambien] madalyn} Care) Ambien 10 mg Blood Blood active Blood eCW3 Glucose Glucos Glucose ([place] Monitor e Monitor [facility] Health w/Device r w/Device Care) System w/Babita ce Daily-[place] Daily- active Daily-[place] - eCW3 - [place] - ([facility]) Daily-[place] Daily- active Daily-[place] - eCW3 - [place] - ([facility]) Daily-[place] Daily- active Daily-[place] - eCW3 - [place] - ([facility]) Calcium 600 Calciu 1.0 active Calcium 6 00 eCW3 + D 600-200 m 600 {tabl + D 600-200 ([place] MG-UNIT + D et} MG-UNIT [place] 600-20 [facility] 0 [facility]) MG-UNI T Multivitami UNK active Multivitami n eCW3 ns - s - ([facility]) Isopropyl Alcoho active Alcohol Pre p eCW3 Alcohol 0.7 l Prep 70 % ([place] ML/ML 70 % [place] Medicated Health [facility] Alcohol Care) Prep 70 % Isopropyl Alcoho active Alcohol Pre p eCW3 Alcohol 0.7 l Prep 70 % ([place] ML/ML 70 % [place] Medicated Health [facility] Alcohol Care) Prep 70 % Hydroxyzine HydrOX 1.0 active HydrOXYzi ne eCW3 Pamoate 100 Yzine {caps Pamoate 100 ([place] MG Oral Pamoat ule} mg [place] Capsule e 100 Health HydrOXYzine mg Care) Pamoate 100 mg Albuterol Albute active Albuterol e CW3 0.83 MG/ML rol Sulfate (2.5 ( [place] Inhalant Sulfat MG/3ML) [place] Solution e (2.5 0.083% Health Albuterol MG/3ML Care) Sulfate ) (2.5 0.083% MG/3ML) 0.083% pregabalin Lyrica 2.0 active Lyrica 100 eCW3 100 MG Oral 100 MG {caps MG ([place] Capsule ule} [place] [Lyrica] Health Lyrica 100 Care) MG aripiprazol Aripip 1.0 active Aripipraz ole eCW3 e 10 MG razole {tabl 10 MG ([place] Oral Tablet 10 MG et} [place] Aripiprazol Health e 10 MG Care) 120 ACTUAT Advair 2.0 active Advair HFA eCW3 Fluticasone HFA {puff 230-21 ([place] propionate 230-21 s} MCG/ACT Rive r 0.23 MCG/AC Health MG/ACTUAT / T Care) salmeterol 0.021 MG/ACTUAT Metered Dose Inhaler [Advair] Advair HFA 230-21 MCG/ACT Albuterol Albute active Albuterol e CW3 0.83 MG/ML rol Sulfate (2.5 ( [place] Inhalant Sulfat MG/3ML) [place] Solution e (2.5 0.083% [facility] Albuterol MG/3ML Care) Sulfate ) (2.5 0.083% MG/3ML) 0.083% ALBUTEROL UNK suspend ALBUTEROL eC W3 SULFATE ed SULFATE ([place] 0.083% 2.5 0.083% 2.5 [place] mg/3 ml mg/3 ml Health Care) lamotrigine Lamotr 1.0 active Lamotrigi ne eCW3 200 MG Oral igine {tabl 200 mg ([place] Tablet 200 mg et} [place] Lamotrigine Health 200 mg Care) Lancets - Lancet active Lancets - e CW3 s - ([facility]) Zolpidem Ambien 1.0 active Ambien 10 mg eCW3 tartrate 10 10 mg {tabl ([place] MG Oral et_at [place] Tablet _bedt Health [Ambien] madalyn} Care) Ambien 10 mg Fluticasone Flutic 1.0 active Fluticaso ne eCW3 Propionate asone {puff Propionate ( [place] 50 MCG/ACT Propio _in_e 50 MCG/ACT [place] nilo ach_n Health 50 ostri Care) MCG/AC l} T montelukast Singul 1.0 active Singulair 10 eCW3 10 MG Oral air 10 {tabl [facility]_in [place] [Singulair] _the_ Health Singulair eveni Care) 10 mg ng} Daily-[place] Daily- active Daily-[place] - eCW3 - [place] - ([facility]) ALBUTEROL UNK active ALBUTEROL eCW 3 SULFATE SULFATE ([place] 0.083% 2.5 0.083% 2.5 [place] mg/3 ml mg/3 ml [facility]) Furosemide Furose 1.0 active Furosemide eCW3 40 MG Oral mide {tabl 40 mg ([place] Tablet 40 mg et} [place] Furosemide Health 40 mg Care) Zolpidem Ambien 1.0 active Ambien 10 mg eCW3 tartrate 10 10 mg {tabl ([place] MG Oral et_at [place] Tablet _bedt Health [Ambien] madalyn} Care) Ambien 10 mg MULTI-VITAM complet [place] TABLET 1 ed [facility] TAB ORAL Medical DAILY Center Calcium 600 Calciu 1.0 active Calcium 6 00 eCW3 + D 600-200 m 600 {tabl + D 600-200 ([place] MG-UNIT + D et} MG-UNIT [place] 600-20 Health 0 Care) MG-UNI T Lancets - Lancet active Lancets - e CW3 s - ([facility]) Multivitami UNK active Multivitami n eCW3 ns - s - ([facility]) Blood Blood active Blood eCW3 Glucose Glucos Glucose Test ([place] Test - e Test - [facility]) Albuterol Albute active Albuterol e CW3 0.83 MG/ML rol Sulfate (2.5 ( [place] Inhalant Sulfat MG/3ML) [place] Solution e (2.5 0.083% Health Albuterol MG/3ML Care) Sulfate ) (2.5 0.083% MG/3ML) 0.083% Vitamin D UNK 1.0 active Vitamin D eCW 3 98419 UNIT {caps 12690 UNIT ([place] ud[place] ule} [facility]) Lancets - Lancet active Lancets - e CW3 s - ([facility]) Multivitami UNK active Multivitami n eCW3 ns - s - ([facility]) Lancets - Lancet active Lancets - e CW3 s - ([facility]) Calcium 600 Calciu 1.0 active Calcium 6 00 eCW3 + D 600-200 m 600 {tabl + D 600-200 ([place] MG-UNIT + D et} MG-UNIT [place] 600-20 Health 0 Care) MG-UNI T Blood Blood active Blood eCW3 Glucose Glucos Glucose ([place] Monitor e Monitor [place] [facility] Health w/Device r w/Device Care) System w/Babita ce aripiprazol Aripip 1.0 active Aripipraz ole eCW3 e 10 MG razole {tabl 10 MG ([place] Oral Tablet 10 MG et} [place] Aripiprazol Health e 10 MG Care) montelukast Singul 1.0 active Singulair 10 eCW3 10 MG Oral air 10 {tabl mg ([place] Tablet mg et_in [place] [Singulair] _the_ Health Singulair eveni Care) 10 mg ng} Blood Blood active Blood eCW3 Glucose Glucos Glucose ([employer] Monitor e Monitor [place] [facility] Health w/Device r w/Device Care) System w/Babita ce Blood Blood active Blood eCW3 Glucose Glucos Glucose ([place] Monitor e Monitor [place] [facility] Health w/Device r w/Device Care) System w/Babita ce Hydroxyzine HydrOX 1.0 active HydrOXYzi ne eCW3 Pamoate 100 Yzine {caps Pamoate 100 ([place] MG Oral Pamoat ule} mg [place] Capsule e 100 Health HydrOXYzine mg Care) Pamoate 100 mg pregabalin Lyrica 1.0 active Lyrica 150 eCW3 150 MG Oral 150 MG {caps MG ([place] Capsule ule} [place] [Lyrica] [facility] Lyrica 150 Care) MG Furosemide Furose 1.0 active Furosemide eCW3 40 MG Oral mide {tabl 40 mg ([place] Tablet 40 mg et} [place] Furosemide Health 40 mg Care) Zolpidem Ambien 1.0 active Ambien 10 mg eCW3 tartrate 10 10 mg {tabl ([place] MG Oral et_at [place] Tablet _[facility] [Ambien] madalyn} Care) Ambien 10 mg Omeprazole Omepra 1.0 active Omeprazole eCW3 20 MG zole {caps 20 mg ([place] Delayed 20 mg ule} [facility] Oral Care) Capsule Omeprazole 20 mg 120 ACTUAT Advair 2.0 active Advair HFA eCW3 Fluticasone HFA {puff 230-21 ([place] propionate 230-21 s} MCG/ACT Rive r 0.23 MCG/AC Health MG/ACTUAT / T Care) salmeterol 0.021 MG/ACTUAT Metered Dose Inhaler [Advair] Advair HFA 230-21 MCG/ACT Isopropyl Alcoho active Alcohol Pre p eCW3 Alcohol 0.7 l Prep 70 % ([place] ML/ML 70 % [place] Medicated [facility] Pad Alcohol Care) Prep 70 % Lancets - Lancet active Lancets - e CW3 s - ([facility]) Daily-[place] Daily- active Daily-[place] - eCW3 - [place] - ([facility]) Lancets - Lancet active Lancets - e CW3 s - ([facility]) Furosemide Furose 1.0 active Furosemide eCW3 40 MG Oral mide {tabl 40 mg ([place] Tablet 40 mg et} [place] Furosemide Health 40 mg Care) 120 ACTUAT Advair 2.0 active Advair HFA eCW3 Fluticasone HFA {puff 230-21 ([place] propionate 230-21 s} MCG/ACT Rive r 0.23 MCG/AC Health MG/ACTUAT / T Care) salmeterol 0.021 MG/ACTUAT Metered Dose Inhaler [Advair] Advair HFA 230-21 MCG/ACT Vitamin D UNK 1.0 active Vitamin D eCW 3 98021 UNIT {caps 86915 UNIT ([place] udson ule} [facility]) Zolpidem Ambien 1.0 active Ambien 10 mg eCW3 tartrate 10 10 mg {tabl ([place] MG Oral et_at [place] Tablet [facility] [Ambien] madalyn} Care) Ambien 10 mg Multivitami UNK active Multivitami n eCW3 ns - s - ([facility]) Omeprazole Omepra 1.0 active Omeprazole eCW3 20 MG zole {caps 20 mg ([place] Delayed 20 mg ule} [facility] Oral [facility]) Capsule Omeprazole 20 mg Albuterol Albute active Albuterol e CW3 0.83 MG/ML rol Sulfate (2.5 ( [place] Inhalant Sulfat MG/3ML) [place] Solution e (2.5 0.083% [facility] Albuterol MG/3ML Care) Sulfate ) (2.5 0.083% MG/3ML) 0.083% ALBUTEROL UNK suspend ALBUTEROL eC W3 SULFATE ed SULFATE ([place] 0.083% 2.5 0.083% 2.5 [place] mg/3 ml mg/3 ml [facility]) Daily-[place] Daily- active Daily-[place] - eCW3 - [place] - ([facility]) Blood Blood active Blood eCW3 Glucose Glucos Glucose ([place] Monitor e Monitor [place] System [facility] Health w/Device r w/Device Care) System w/Babita ce Fluticasone Flutic 1.0 active Fluticaso ne eCW3 Propionate asone {puff Propionate ( [place] 50 MCG/ACT Propio _in_e 50 MCG/ACT [place] nilo ach_n Health 50 ostri Care) MCG/AC l} T pregabalin Lyrica 1.0 active Lyrica 200 eCW3 200 MG Oral 200 MG {caps MG ([place] Capsule ule} [place] [Lyrica] [facility] Lyrica 200 Care) MG Vitamin D UNK 1.0 active Vitamin D eCW 3 96314 UNIT {caps 89921 UNIT (H udson ule} [facility]) Omeprazole Omepra 1.0 active Omeprazole eCW3 20 MG zole {caps 20 mg ([place] Delayed 20 mg ule} [facility] Oral Care) Capsule Omeprazole 20 mg Calcium 600 Calciu 1.0 active Calcium 6 00 eCW3 + D 600-200 m 600 {tabl + D 600-200 ([place] MG-UNIT + D et} MG-UNIT [place] 600-20 [facility] 0 Care) MG-UNI T Vitamin D UNK 1.0 active Vitamin D eCW 3 03579 UNIT {caps 43999 UNIT ([place] udson ule} [facility] Care) Fluticasone Flutic 1.0 active Fluticaso ne eCW3 Propionate asone {puff Propionate ( [place] 50 MCG/ACT Propio _in_e 50 MCG/ACT [place] nilo ach_n Health 50 ostri Care) MCG/AC l} T Multivitami UNK active Multivitami n eCW3 ns - s - ([facility]) Calcium 600 Calciu 1.0 active Calcium 6 00 eCW3 + D 600-200 m 600 {tabl + D 600-200 ([place] MG-UNIT + D et} MG-UNIT [place] 600-20 Health 0 Care) MG-UNI T Albuterol Alb[place] suspend Albuterol eCW3 0.83 MG/ML rol ed Sulfate (2.5 ( [place] Inhalant Sulfat MG/3ML) [place] Solution e (2.5 0.083% Health Albuterol MG/3ML Care) Sulfate ) (2.5 0.083% MG/3ML) 0.083% Albuterol Albute suspend Albuterol eCW3 0.83 MG/ML rol ed Sulfate (2.5 ( [place] Inhalant Sulfat MG/3ML) [place] Solution e (2.5 0.083% Health Albuterol MG/3ML Care) Sulfate ) (2.5 0.083% MG/3ML) 0.083% Isopropyl Alcoho active Alcohol Pre p eCW3 Alcohol 0.7 l Prep 70 % ([place] ML/ML 70 % [place] Medicated [facility] Pad Alcohol Care) Prep 70 % Calcium 600 Calciu 1.0 active Calcium 6 00 eCW3 + D 600-200 m 600 {tabl + D 600-200 ([place] MG-UNIT + D et} MG-UNIT [place] 600-20 Health 0 Care) MG-UNI T montelukast Singul 1.0 active Singulair 10 eCW3 10 MG Oral air 10 {tabl mg ([place] Tablet mg et_in [place] [Singulair] _the_ Health Singulair eveni Care) 10 mg ng} lamotrigine Lamotr 1.0 active Lamotrigi ne eCW3 200 MG Oral igine {tabl 200 mg ([place] Tablet 200 mg et} [place] Lamotrigine Health 200 mg Care) Zolpidem Ambien 1.0 active Ambien 10 mg eCW3 tartrate 10 10 mg {tabl ([place] MG Oral et_at [place] Tablet _bedt Health [Ambien] madalyn} Care) Ambien 10 mg Multivitami UNK active Multivitami n eCW3 ns - s - ([facility]) Vitamin D UNK 1.0 active Vitamin D eCW 3 41402 UNIT {caps 09773 UNIT (H udson ule} [facility]) Omeprazole Omepra 1.0 active Omeprazole eCW3 20 MG zole {caps 20 mg ([place] Delayed 20 mg ule} [facility] Oral Care) Capsule Omeprazole 20 mg 120 ACTUAT Advair 2.0 active Advair HFA eCW3 Fluticasone HFA {puff 230-21 ([place] propionate 230-21 s} MCG/ACT Rive r 0.23 MCG/AC Health MG/ACTUAT / T Care) salmeterol 0.021 MG/ACTUAT Metered Dose Inhaler [Advair] Advair HFA 230-21 MCG/ACT Calcium 600 Calciu 1.0 active Calcium 6 00 eCW3 + D 600-200 m 600 {tabl + D 600-200 ([place] MG-UNIT + D et} MG-UNIT [place] 600-20 Health 0 Care) MG-UNI T Lancets - Lancet active Lancets - e CW3 s - ([facility]) pregabalin Lyrica 1.0 active Lyrica 150 eCW3 150 MG Oral 150 MG {caps MG ([place] Capsule ule} [place] [Lyrica] [facility] Lyrica 150 Care) MG Omeprazole Omepra 1.0 active Omeprazole eCW3 20 MG zole {caps 20 mg ([place] Delayed 20 mg ule} [facility] Oral Care) Capsule Omeprazole 20 mg Albuterol Alb[place] suspend Albuterol eCW3 0.83 MG/ML rol ed Sulfate (2.5 ( [place] Inhalant Sulfat MG/3ML) [place] Solution e (2.5 0.083% Health Albuterol MG/3ML Care) Sulfate ) (2.5 0.083% MG/3ML) 0.083% Hydroxyzine HydrOX 1.0 active HydrOXYzi ne eCW3 Pamoate 100 Yzine {caps Pamoate 100 ([place] MG Oral Pamoat ule} mg [place] Capsule e 100 Health HydrOXYzine mg Care) Pamoate 100 mg Blood Blood active Blood eCW3 Glucose Glucos Glucose Test (H udson Test - e Test - [facility]) Daily-[place] Daily- active Daily-[place] - eCW3 - [place] - ([facility]) Fluticasone Flutic 1.0 active Fluticaso ne eCW3 Propionate asone {puff Propionate ( [place] 50 MCG/ACT Propio _in_e 50 MCG/ACT [place] nilo ach_n Health 50 ostri Care) MCG/AC l} T pregabalin Lyrica 1.0 active Lyrica 150 eCW3 150 MG Oral 150 MG {caps MG ([place] Capsule ule} [place] [Lyrica] Health Lyrica 150 Care) MG Lancets - Lancet active Lancets - e CW3 s - ([facility]) Fluticasone Flutic 1.0 active Fluticaso ne eCW3 Propionate asone {puff Propionate ( [place] 50 MCG/ACT Propio _in_e 50 MCG/ACT [place] nilo ach_n Health 50 ostri Care) MCG/AC l} T Multivitami UNK active Multivitami n eCW3 ns - s - ([facility]) Daily-[place] Daily- active Daily-[place] - eCW3 - [place] - ([facility]) lamotrigine Lamotr 1.0 active Lamotrigi ne eCW3 200 MG Oral igine {tabl 200 mg ([place] Tablet 200 mg et} [place] Lamotrigine Health 200 mg Care) 120 ACTUAT Advair 2.0 active Advair HFA eCW3 Fluticasone HFA {puff 230-21 ([place] propionate 230-21 s} MCG/ACT Rive r 0.23 MCG/AC Health MG/ACTUAT / T Care) salmeterol 0.021 MG/ACTUAT Metered Dose Inhaler [Advair] Advair HFA 230-21 MCG/ACT aripiprazol Aripip 1.0 active Aripipraz ole eCW3 e 10 MG razole {tabl 10 MG ([place] Oral Tablet 10 MG et} [place] Aripiprazol Health e 10 MG Care) ALBUTEROL UNK active ALBUTEROL eCW 3 SULFATE SULFATE ([place] 0.083% 2.5 0.083% 2.5 [place] mg/3 ml mg/3 ml Health Care) Isopropyl Alcoho active Alcohol Pre p eCW3 Alcohol 0.7 l Prep 70 % ([place] ML/ML 70 % [place] [facility]icated [facility] Pad Alcohol Care) Prep 70 % 120 ACTUAT Advair 2.0 active Advair HFA eCW3 Fluticasone HFA {puff 230-21 ([place] propionate 230-21 s} MCG/ACT Rive r 0.23 MCG/AC Health MG/ACTUAT / T Care) salmeterol 0.021 MG/ACTUAT Metered Dose Inhaler [Advair] Advair HFA 230-21 MCG/ACT ALBUTEROL UNK suspend ALBUTEROL eC W3 SULFATE ed SULFATE ([place] 0.083% 2.5 0.083% 2.5 [place] mg/3 ml mg/3 ml Health Care) Furosemide Furose 1.0 active Furosemide eCW3 40 MG Oral mide {tabl 40 mg ([place] Tablet 40 mg et} [place] Furosemide Health 40 mg Care) Fluticasone Flutic 1.0 active Fluticaso ne eCW3 Propionate asone {puff Propionate ( [place] 50 MCG/ACT Propio _in_e 50 MCG/ACT [place] nilo ach_n Health 50 ostri Care) MCG/AC l} T Furosemide Furose active Furosemide eCW3 40 MG Oral mide 40 MG ([place] Tablet 40 MG [facility] Care) Zolpidem Ambien 1.0 active Ambien 10 mg eCW3 tartrate 10 10 mg {tabl ([place] MG Oral et_at [place] Tablet _bedt Health [Ambien] madalyn} Care) Ambien 10 mg Furosemide Furose 1.0 active Furosemide eCW3 40 MG Oral mide {tabl 40 mg ([place] Tablet 40 mg et} [place] Furosemide Health 40 mg Care) pregabalin Lyrica 2.0 active Lyrica 100 eCW3 100 MG Oral 100 MG {caps MG ([place] Capsule ule} [facility] [Lyrica] [facility] Lyrica 100 Care) MG montelukast Singul 1.0 active Singulair 10 eCW3 10 MG Oral air 10 {tabl mg ([place] Tablet mg et_in [place] [Singulair] _the_ Health Singulair eveni Care) 10 mg ng} Hydroxyzine HydrOX 1.0 active HydrOXYzi ne eCW3 Pamoate 100 Yzine {caps Pamoate 100 ([place] MG Oral Pamoat ule} mg [facility] Capsule e 100 Health HydrOXYzine mg Care) Pamoate 100 mg Blood Blood active Blood eCW3 Glucose Glucos Glucose ([place] Monitor e Monitor [facility] w/Device r w/Device Care) System w/[place] ce montelukast Singul 1.0 active Singulair 10 eCW3 10 MG Oral air 10 {tabl mg ([place] Tablet mg et_in [place] [Singulair] _the_ Health Singulair eveni Care) 10 mg ng} Blood Blood active Blood eCW3 Glucose Glucos Glucose Test (H udson Test - e Test - [facility]) Acetaminoph Oxycod active Oxycodone -Ac eCW3 en 325 MG / one-Ac etaminophen ([place] Oxycodone etamin 7.5-325 MG Ri ale[place] Hydrochlori oph Health de 7.5 MG 7.5-32 Care) Oral Tablet 5 MG Oxycodone-A cetaminophe n 7.5-325 MG Zolpidem Ambien 1.0 active Ambien 10 mg eCW3 tartrate 10 10 mg {tabl ([place] MG Oral et_at [place] Tablet _bedt Health [Ambien] madalyn} Care) Ambien 10 mg Furosemide Furose 1.0 active Furosemide eCW3 40 MG Oral mide {tabl 40 mg ([place] Tablet 40 mg et} [place] Furosemide Health 40 mg Care) montelukast Singul 1.0 active Singulair 10 eCW3 10 MG Oral air 10 {tabl mg ([place] Tablet mg et_in [place] [Singulair] _the_ Health Singulair eveni Care) 10 mg ng} Fluticasone Flutic 1.0 active Fluticaso ne eCW3 Propionate asone {puff Propionate ( [place] 50 MCG/ACT Propio _in_e 50 MCG/ACT [place] nilo ach_n Health 50 ostri Care) MCG/AC l} T Ergocalcife ergoca 1 complet Vitamin D2 [place] [address] lcifer ed [place] UNT Oral ol Medical Capsule (vitam Center ergocalcife in D2) rol (Vitam (vitamin in D2) D2) 50,000 (Vitamin unit D2) 50,000 Capsul unit e, Capsule, Ordere Ordered By: d By: janis Badillo, MDDirection MDDire s: 1 ctions capsule : 1 oral weekly capsul e oral weekly Blood Blood active Blood eCW3 Glucose Glucos Glucose Test ([facility] Test - e Test - [facility]) Omeprazole omepra 1 complet Lety t 20 MG zole ed [place] Delayed 20 mg Medical Release capsul Center Oral e,jarrod Capsule yed omeprazole releas 20 mg e(DR/E capsule,del C), ayed Ordere release(DR/ d By: DOUGIE)Asaf Ordered By: José Miguel Nuñez MDDire , ctions MDDirection : 1 s: 1 capsul capsule e oral oral daily daily pregabalin Lyrica 1.0 active Lyrica 200 eCW3 200 MG Oral 200 MG {caps MG ([place] Capsule ule} [place] [Lyrica] [facility] Lyrica 200 Care) MG lamotrigine Lamotr 1.0 active Lamotrigi ne eCW3 200 MG Oral igine {tabl 200 mg ([place] Tablet 200 mg et} [place] Lamotrigine [facility] 200 mg Care) Fluticasone Flutic 1.0 suspend Fluticas one eCW3 Propionate asone {puff ed Propionate ( [place] 50 MCG/ACT Propio _in_e 50 MCG/ACT [place] nilo ach_n Health 50 ostri Care) MCG/AC l} T Vitamin D UNK 1.0 active Vitamin D eCW 3 27863 UNIT {caps 22354 UNIT (H udson ule} [facility]) Vitamin D UNK 1.0 active Vitamin D eCW 3 17387 UNIT {caps 07240 UNIT (H udson ule} [facility]) lamotrigine Lamotr 1.0 active Lamotrigi ne eCW3 200 MG Oral igine {tabl 200 mg ([place] Tablet 200 mg et} [place] Lamotrigine [facility] 200 mg Care) Blood Blood active Blood eCW3 Glucose Glucos Glucose ([place] Monitor e Monitor [facility] System [facility] Health w/Device r w/Device Care) System w/Babita ce pregabalin Lyrica 1.0 active Lyrica 200 eCW3 200 MG Oral 200 MG {caps MG ([place] Capsule ule} [facility] [Lyrica] [facility] Lyrica 200 Care) MG Hydroxyzine HydrOX 1.0 active HydrOXYzi ne eCW3 Pamoate 100 Yzine {caps Pamoate 100 ([place] MG Oral Pamoat ule} mg [place] Capsule e 100 Health HydrOXYzine mg Care) Pamoate 100 mg Hydroxyzine HydrOX 1.0 active HydrOXYzi ne eCW3 Pamoate 100 Yzine {caps Pamoate 100 ([place] MG Oral Pamoat ule} mg [place] Capsule e 100 Health HydrOXYzine mg Care) Pamoate 100 mg aripiprazol Aripip 1.0 active Aripipraz ole eCW3 e 10 MG razole {tabl 10 MG ([place] Oral Tablet 10 MG et} [place] Aripiprazol Health e 10 MG Care) Vitamin D UNK 1.0 suspend Vitamin D eC W3 97369 UNIT {[place] 47[address] UNIT (H udson ule} [facility] Care) gabapentin gabape 1 complet Lety t 800 MG Oral ntin ed [place] Tablet 800 mg Medical gabapentin Tablet Center 800 mg , Tablet, Ordere Ordered By: d By: janis Badillo, CUAUHTEMOCirection MDDire s: 1 tablet ctions oral three : 1 times a day tablet oral three times a day aripiprazol aripip 1 complet Jose Eduardo nt e 10 MG razole ed [place] Oral Tablet 10 mg Medical aripiprazol Tablet Center e 10 mg , Tablet, Ordere Ordered By: d By: janis Badillo, CUAUHTEMOCirection MDDire s: 1 tablet ctions oral daily : 1 tablet oral daily 60 ACTUAT flutic 2 complet Advair HFA [place] Fluticasone asone ed [place] propionate propio Medical 0.23 n-salm Center MG/ACTUAT / eterol salmeterol (Advai 0.021 r HFA) MG/ACTUAT 230 Metered mcg-21 Dose mcg/Ac Inhaler tuatio [Advair] n HFA fluticasone Aeroso propion-destinee l meterol Inhale (Advair r, HFA) 230 Ordere mcg-21 d By: mcg/Actuati Asaf on HFA Safo-A Aerosol sante, Inhaler, MDDire Ordered By: ctions Asaf : 2 Safo-Orlin puff , by MDDirection inhala s: 2 puff tion by twice inhalation a day twice a day montelukast markel 1 complet Jose Eduardo nt 10 MG Oral ukast ed [place] Tablet 10 mg Medical montelukast Tablet Center 10 mg , Tablet, Ordere Ordered By: d By: Asaf Ron Safo-Orlin Safo-A sante, MDDirection MDDire s: 1 tablet ctions oral daily : 1 tablet oral daily Acetaminoph oxyCOD 1 complet Jose Eduardo nt en 325 MG / ONE-ac ed Aki s Oxycodone etamin Medical Hydrochlori ophen Center de 5 MG 5 Oral Tablet mg-325 oxyCODONE-a mg cetaminophe Tablet n 5 mg-325 , mg Tablet, Ordere Ordered By: d By: Asaf Ron Safo-Orlin Safo-A , sante, MDDirection MDDire s: 1 tablet ctions oral every : 1 six hours tablet PRN PAIN oral every six hours PRN PAIN Vitamin D UNK 1.0 active Vitamin D eCW 3 15150 UNIT {caps 67427 UNIT ([facility] ule} [facility]) pregabalin Lyrica 1.0 active Lyrica 150 eCW3 150 MG Oral 150 MG {caps MG ([place] Capsule ule} [facility] [Lyrica] Health Lyrica 150 Care) MG Vitamin D UNK 1.0 suspend Vitamin D eC W3 69394 UNIT {[place] 37886 UNIT ([facility] ud[facility] ule} [facility]) montelukast Singul 1.0 active Singulair 10 eCW3 10 MG Oral air 10 {tabl mg ([place] Tablet mg et_in [place] [Singulair] _the_ Health Singulair eveni Care) 10 mg ng} Vitamin D UNK 1.0 active Vitamin D eCW 3 43294 UNIT {caps 75937 UNIT (H udson ule} [facility]) monteharshalst Singul 1.0 active Singulair 10 eCW3 10 MG Oral air 10 {tabl mg ([place] Tablet mg et_in [place] [Singulair] _the_ Health Singulair eveni Care) 10 mg ng} Calcium 600 Calciu 1.0 active Calcium 6 00 eCW3 + D 600-200 m 600 {tabl + D 600-200 ([place] MG-UNIT + D et} MG-UNIT [facility] 600-20 Health 0 Care) MG-UNI T Multivitami UNK active Multivitami n eCW3 ns - s - ([facility]) Isopropyl Alcoho active Alcohol Pre p eCW3 Alcohol 0.7 l Prep 70 % ([place] ML/ML 70 % [facility] Pad Alcohol Care) Prep 70 % Daily-[place] Daily- active Daily-[place] - eCW3 - [place] - ([facility]) lamotrigine Lamotr 1.0 active Lamotrigi ne eCW3 200 MG Oral igine {tabl 200 mg ([place] Tablet 200 mg et} [place] Lamotrigine Health 200 mg Care) pregabalin Lyrica 1.0 active Lyrica 150 eCW3 150 MG Oral 150 MG {caps MG ([place] Capsule ule} [place] [Lyrica] [facility] Lyrica 150 Care) MG Calcium 600 Calciu 1.0 active Calcium 6 00 eCW3 + D 600-200 m 600 {tabl + D 600-200 ([place] MG-UNIT + D et} MG-UNIT [facility] 600-20 Health 0 Care) MG-UNI T Hydroxyzine HydrOX 1.0 active HydrOXYzi ne eCW3 Pamoate 100 Yzine {caps Pamoate 100 ([place] MG Oral Pamoat ule} mg [place] Capsule e 100 Health HydrOXYzine mg Care) Pamoate 100 mg Hydroxyzine HydrOX 1.0 active HydrOXYzi ne eCW3 Pamoate 100 Yzine {caps Pamoate 100 ([place] MG Oral Pamoat ule} mg [place] Capsule e 100 Health HydrOXYzine mg Care) Pamoate 100 mg Hydroxyzine HydrOX 1.0 active HydrOXYzi ne eCW3 Pamoate 100 Yzine {caps Pamoate 100 ([place] MG Oral Pamoat ule} mg [place] Capsule e 100 Health HydrOXYzine mg Care) Pamoate 100 mg pregabalin Lyrica 1.0 active Lyrica 150 eCW3 150 MG Oral 150 MG {caps MG ([place] Capsule ule} [facility] [Lyrica] Health Lyrica 150 Care) MG Lancets - Lancet active Lancets - e CW3 s - ([facility]) Blood Blood active Blood eCW3 Glucose Glucos Glucose ([place] Monitor e Monitor [place] System [facility] [facility] Health w/Device r w/Device Care) System w/Babita ce Albuterol Albute active Albuterol e CW3 0.83 MG/ML rol Sulfate (2.5 ( [place] Inhalant Sulfat MG/3ML) [place] Solution e (2.5 0.083% Health Albuterol MG/3ML Care) Sulfate ) (2.5 0.083% MG/3ML) 0.083% 120 ACTUAT Advair 2.0 active Advair HFA eCW3 Fluticasone HFA {puff 230-21 ([place] propionate 230-21 s} MCG/ACT Rive r 0.23 MCG/AC Health MG/ACTUAT / T Care) salmeterol 0.021 MG/ACTUAT Metered Dose Inhaler [Advair] Advair HFA 230-21 MCG/ACT Isopropyl Alcoho active Alcohol Pre p eCW3 Alcohol 0.7 l Prep 70 % ([place] ML/ML 70 % [place] Medicated [facility] Alcohol Care) Prep 70 % Isopropyl Alcoho active Alcohol Pre p eCW3 Alcohol 0.7 l Prep 70 % ([place] ML/ML 70 % [facility]) Prep 70 % Furosemide Furose 1.0 active Furosemide eCW3 40 MG Oral mide {tabl 40 mg ([place] Tablet 40 mg et} [place] Furosemide Health 40 mg Care) Acetaminoph Oxycod active Oxycodone -Ac eCW3 en 325 MG / one-Ac etaminophen ([place] Oxycodone etamin 7.5-325 MG Ri ale[place] Hydrochlori ophen Health de 7.5 MG 7.5-32 Care) Oral Tablet 5 MG Oxycodone-A cetaminophe n 7.5-325 MG Acetaminoph Oxycod active Oxycodone -Ac eCW3 en 325 MG / one-Ac etaminophen ([place] Oxycodone etamin 7.5-325 MG Ri aleks Hydrochlori oph Health de 7.5 MG 7.5-32 Care) Oral Tablet 5 MG Oxycodone-A cetaminophe n 7.5-325 MG lamotrigine Lamotr 1.0 active Lamotrigi ne eCW3 200 MG Oral igine {tabl 200 mg ([facility] Tablet 200 mg et} [place] Lamotrigine [facility] 200 mg Care) Calcium 600 Calciu 1.0 active Calcium 6 00 eCW3 + D 600-200 m 600 {tabl + D 600-200 ([place] MG-UNIT + D et} MG-UNIT [place] 600-20 Health 0 Care) MG-UNI T Daily-[place] Daily- active Daily-[place] - eCW3 - [place] - ([facility]) Zolpidem Ambien 1.0 active Ambien 10 mg eCW3 tartrate 10 10 mg {tabl ([place] MG Oral et_at [place] Tablet _bedt Health [Ambien] madalyn} Care) Ambien 10 mg montelukast Singul 1.0 active Singulair 10 eCW3 10 MG Oral air 10 {tabl mg ([place] Tablet mg et_in [place] [Singulair] _the_ Health Singulair eveni Care) 10 mg ng} Lancets - Lancet active Lancets - e CW3 s - ([facility]) Isopropyl Alcoho active Alcohol Pre p eCW3 Alcohol 0.7 l Prep 70 % ([place] ML/ML 70 % [facility] Pad Alcohol Care) Prep 70 % aripiprazol Aripip 1.0 active Aripipraz ole eCW3 e 10 MG razole {tabl 10 MG ([place] Oral Tablet 10 MG et} [place] Aripiprazol Health e 10 MG Care) ALBUTEROL UNK suspend ALBUTEROL eC W3 SULFATE ed SULFATE ([place] 0.083% 2.5 0.083% 2.5 [place] mg/3 ml mg/3 ml Health Care) ALBUTEROL UNK suspend ALBUTEROL eC W3 SULFATE ed SULFATE ([place] 0.083% 2.5 0.083% 2.5 [place] mg/3 ml mg/3 ml Health Care) lamotrigine Lamotr 1.0 active Lamotrigi ne eCW3 200 MG Oral igine {tabl 200 mg ([place] Tablet 200 mg et} [place] Lamotrigine Health 200 mg Care) Blood Blood active Blood eCW3 Glucose Glucos Glucose ([place] Monitor e Monitor [place] [facility] Health w/Device r w/Device Care) System w/Babita ce Fluticasone Flutic 1.0 suspend Fluticas one eCW3 Propionate asone {puff ed Propionate ( [place] 50 MCG/ACT Propio _in_e 50 MCG/ACT [place] nilo ach_n Health 50 ostri Care) MCG/AC l} T Hydroxyzine HydrOX 1.0 active HydrOXYzi ne eCW3 Pamoate 100 Yzine {caps Pamoate 100 ([place] MG Oral Pamoat ule} mg [place] Capsule e 100 Health HydrOXYzine mg Care) Pamoate 100 mg Blood Blood active Blood eCW3 Glucose Glucos Glucose Test (H udson Test - e Test - [facility]) Blood Blood active Blood eCW3 Glucose Glucos Glucose Test ([facility] Test - e Test - [facility]) Blood Blood active Blood eCW3 Glucose Glucos Glucose ([place] Monitor e Monitor [place] [facility] Health w/Device r w/Device Care) System w/Babita ce Fluticasone Flutic 1.0 active Fluticaso ne eCW3 Propionate asone {puff Propionate ( [place] 50 MCG/ACT Propio _in_e 50 MCG/ACT [place] nilo ach_n Health 50 ostri Care) MCG/AC l} T Acetaminoph Oxycod active Oxycodone -Ac eCW3 en 325 MG / one-Ac etaminophen ([place] Oxycodone etamin 7.5-325 MG [facility] de [facility] MG 7.5-32 Care) Oral Tablet 5 MG Oxycodone-A cetaminophe n 7.5-325 MG aripiprazol Aripip 1.0 active Aripipraz ole eCW3 e 10 MG razole {tabl 10 MG ([place] Oral Tablet 10 MG et} [place] Aripiprazol Health e 10 MG Care) Fluticasone Flutic 1.0 suspend Fluticas one eCW3 Propionate asone {puff ed Propionate ( [place] 50 MCG/ACT Propio _in_e 50 MCG/ACT [place] nilo ach_n Health 50 ostri Care) MCG/AC l} T Calcium 600 Calciu 1.0 active Calcium 6 00 eCW3 + D 600-200 m 600 {tabl + D 600-200 ([place] MG-UNIT + D et} MG-UNIT [place] 600-20 Health 0 Care) MG-UNI T Hydroxyzine HydrOX 1.0 active HydrOXYzi ne eCW3 Pamoate 100 Yzine {caps Pamoate 100 ([place] MG Oral Pamoat ule} mg [place] Capsule e 100 Health HydrOXYzine mg Care) Pamoate 100 mg Blood Blood active Blood eCW3 Glucose Glucos Glucose ([employer] Monitor e Monitor [facility] System [employer] [facility] Health w/Device r w/Device Care) System w/Babita ce Blood Blood active Blood eCW3 Glucose Glucos Glucose ([employer] Monitor e Monitor [facility] System [employer] w/Device r w/Device Care) System w/Babita ce Lancets - Lancet active Lancets - e CW3 s - ([facility]) Blood Blood active Blood eCW3 Glucose Glucos Glucose ([employer] Monitor e Monitor [facility] System [employer] [facility] w/Device r w/Device Care) System w/Babita ce Blood Blood active Blood eCW3 Glucose Glucos Glucose Test ([facility] udson Test - e Test - [facility]) ALBUTEROL UNK suspend ALBUTEROL eC W3 SULFATE ed SULFATE ([place] 0.083% 2.5 0.083% 2.5 [place] mg/3 ml mg/3 ml Health Care) Acetaminoph Oxycod active Oxycodone -Ac eCW3 en 325 MG / one-Ac etaminophen ([place] Oxycodone etamin 7.5-325 MG Ri aleks [facility] de 7.5 MG 7.5-32 Care) Oral Tablet 5 MG Oxycodone-A cetaminophe n 7.5-325 MG Fluticasone Flutic 1.0 active Fluticaso ne eCW3 Propionate asone {puff Propionate ( [place] 50 MCG/ACT Propio _in_e 50 MCG/ACT [place] nilo ach_n Health 50 ostri Care) MCG/AC l} T Albuterol Albute suspend Albuterol eCW3 0.83 MG/ML rol ed Sulfate (2.5 ( [place] Inhalant Sulfat MG/3ML) [place] Solution e (2.5 0.083% [facility] Albuterol MG/3ML Care) Sulfate ) (2.5 0.083% MG/3ML) 0.083% Blood Blood active Blood eCW3 Glucose Glucos [facility] Test ([facility]) aripiprazol Aripip 1.0 active Aripipraz ole eCW3 e 10 MG razole {tabl 10 MG ([place] Oral Tablet 10 MG et} [place] Aripiprazol Health e 10 MG Care) Multivitami UNK active Multivitami n eCW3 ns - s - ([facility]) Albuterol Albute active Albuterol e CW3 0.83 MG/ML rol Sulfate (2.5 ( [place] Inhalant Sulfat MG/3ML) [place] Solution e (2.5 0.083% [facility] Albuterol MG/3ML Care) Sulfate ) (2.5 0.083% MG/3ML) 0.083% Multivitami UNK active Multivitami n eCW3 ns - s - ([facility]) Multivitami UNK active Multivitami n eCW3 ns - s - ([facility]) Blood Blood active Blood eCW3 Glucose Glucos Glucose Test ([facility] - [facility]) Furosemide Furose 1.0 active Furosemide eCW3 40 MG Oral mide {tabl 40 mg ([place] Tablet 40 mg et} [facility] Furosemide Health 40 mg Care) Vitamin D UNK 1.0 active Vitamin D eCW 3 24428 UNIT {caps 44378 UNIT ([facility] ul} [facility]) Fluticasone Flutic 1.0 suspend Fluticas one eCW3 Propionate asone {puff ed Propionate ( [place] 50 MCG/ACT Propio _in_e 50 MCG/ACT [place] nilo ach_n Health 50 ostri Care) MCG/AC l} T ALBUTEROL UNK suspend ALBUTEROL eC W3 SULFATE ed SULFATE ([place] 0.083% 2.5 0.083% 2.5 [place] mg/3 ml mg/3 ml [facility] Care) Isopropyl Alcoho active Alcohol Pre p eCW3 Alcohol 0.7 l Prep 70 % ([place] ML/ML 70 % [facility] Pad Alcohol Care) Prep 70 % Daily-[place] Daily- active Daily-[place] - eCW3 - [place] - ([facility]) Acetaminoph Oxycod active Oxycodone -Ac eCW3 en 325 MG / one-Ac etaminophen ([place] Oxycodone etamin 7.5-325 MG [facility] 7.5-32 Care) Oral Tablet 5 MG Oxycodone-A cetaminophe n 7.5-325 MG Acetaminoph Oxycod active Oxycodone -Ac eCW3 en 325 MG / one-Ac etaminophen ([place] Oxycodone etamin 7.5-325 MG Ri ale[facility] MG 7.5-32 Care) Oral Tablet 5 MG Oxycodone-A cetaminophe n 7.5-325 MG ALBUTEROL UNK suspend ALBUTEROL eC W3 SULFATE ed SULFATE ([place] 0.083% 2.5 0.083% 2.5 [place] mg/3 ml mg/3 ml Health Care) Hydroxyzine HydrOX 1.0 active HydrOXYzi ne eCW3 Pamoate 100 Yzine {caps Pamoate 100 ([place] MG Oral Pamoat ule} mg [place] Capsule e 100 Health HydrOXYzine mg Care) Pamoate 100 mg lamotrigine Lamotr 1.0 active Lamotrigi ne eCW3 200 MG Oral igine {tabl 200 mg ([facility] son Tablet 200 mg et} [place] Lamotrigine [facility] 200 mg Care) Zolpidem Ambien 1.0 active Ambien 10 mg eCW3 tartrate 10 10 mg {tabl ([place] MG Oral et_at [place] Tablet _bedt Health [Ambien] madalyn} Care) Ambien 10 mg Calcium 600 Calciu 1.0 active Calcium 6 00 eCW3 + D 600-200 m 600 {tabl + D 600-200 ([place] MG-UNIT + D et} MG-UNIT [place] 600-20 Health 0 Care) MG-UNI T Lancets - Lancet active Lancets - e CW3 s - ([facility]) lamotrigine Lamotr 1.0 active Lamotrigi ne eCW3 200 MG Oral igine {tabl 200 mg ([place] Tablet 200 mg et} [place] Lamotrigine Health 200 mg Care) Hydroxyzine HydrOX 1.0 active HydrOXYzi ne eCW3 Pamoate 100 Yzine {caps Pamoate 100 ([place] MG Oral Pamoat ule} mg [place] Capsule e 100 Health HydrOXYzine mg Care) Pamoate 100 mg aripiprazol Aripip 1.0 active Aripipraz ole eCW3 e 10 MG razole {tabl 10 MG ([place] Oral Tablet 10 MG et} [place] Aripiprazol Health e 10 MG Care) montelukast Singul 1.0 active Singulair 10 eCW3 10 MG Oral air 10 {tabl mg ([place] Tablet mg et_in [place] [Singulair] _the_ [facility] Singulair eveni Care) 10 mg ng} Vitamin D UNK 1.0 suspend Vitamin D eC W3 10997 UNIT {[place] 354[address] UNIT (H udson ule} [facility]) Daily-[place] Daily- active Daily-[place] - eCW3 - [place] - ([facility]) Isopropyl Alcoho active Alcohol Pre p eCW3 Alcohol 0.7 l Prep 70 % ([place] ML/ML 70 % [facility] Pad Alcohol Care) Prep 70 % ALBUTEROL UNK suspend ALBUTEROL eC W3 SULFATE ed SULFATE ([place] 0.083% 2.5 0.083% 2.5 [place] mg/3 ml mg/3 ml [facility] Care) Albuterol Albute active Albuterol e CW3 0.83 MG/ML rol Sulfate (2.5 ( [place] Inhalant Sulfat MG/3ML) [place] Solution e (2.5 0.083% Health Albuterol MG/3ML Care) Sulfate ) (2.5 0.083% MG/3ML) 0.083% Furosemide Furose 1.0 active Furosemide eCW3 40 MG Oral mide {tabl 40 mg ([place] Tablet 40 mg et} [place] Furosemide [facility] 40 mg Care) Omeprazole Omepra 1.0 active Omeprazole eCW3 20 MG zole {caps 20 mg ([place] Delayed 20 mg ule} [facility] Release Health Oral Care) Capsule Omeprazole 20 mg Blood Blood active Blood eCW3 Glucose Glucos Glucose Test ([facility] Test - e Test - [facility]) lamotrigine Lamotr 1.0 active Lamotrigi ne eCW3 200 MG Oral igine {tabl 200 mg ([place] Tablet 200 mg et} [place] Lamotrigine Health 200 mg Care) Lancets - Lancet active Lancets - e CW3 s - ([facility]) Zolpidem Ambien 1.0 active Ambien 10 mg eCW3 tartrate 10 10 mg {tabl ([place] MG Oral et_at [place] Tablet _bedt Health [Ambien] madalyn} Care) Ambien 10 mg ALBUTEROL UNK suspend ALBUTEROL eC W3 SULFATE ed SULFATE ([place] 0.083% 2.5 0.083% 2.5 [place] mg/3 ml mg/3 ml Health Care) Fluticasone Flutic 1.0 active Fluticaso ne eCW3 Propionate asone {puff Propionate ( [place] 50 MCG/ACT Propio _in_e 50 MCG/ACT [place] nilo ach_n Health 50 ostri Care) MCG/AC l} T montelukast Singul 1.0 active Singulair 10 eCW3 10 MG Oral air 10 {tabl mg ([place] Tablet mg et_in [place] [Singulair] _the_ Health Singulair eveni Care) 10 mg ng} Blood Blood active Blood eCW3 Glucose Glucos Glucose ([place] Monitor e Monitor [place] [facility] Health w/Device r w/Device Care) System w/Babita ce Fluticasone Flutic 1.0 suspend Fluticas one eCW3 Propionate asone {puff ed Propionate ( [place] 50 MCG/ACT Propio _in_e 50 MCG/ACT [place] nilo ach_n Health 50 ostri Care) MCG/AC l} T Isopropyl Alcoho active Alcohol Pre p eCW3 Alcohol 0.7 l Prep 70 % ([place] ML/ML 70 % [facility] Alcohol Care) Prep 70 % lamotrigine Lamotr 1.0 active Lamotrigi ne eCW3 200 MG Oral igine {tabl 200 mg ([facility] son Tablet 200 mg et} [place] Lamotrigine Health 200 mg Care) Multivitami UNK active Multivitami n eCW3 ns - s - ([facility]) aripiprazol Aripip 1.0 active Aripipraz ole eCW3 e 10 MG razole {tabl 10 MG ([place] Oral Tablet 10 MG et} [facility] Aripiprazol Health e 10 MG Care) montelukast Singul 1.0 active Singulair 10 eCW3 10 MG Oral air 10 {tabl mg ([place] Tablet mg et_in [place] [Singulair] _the_ Health Singulair eveni Care) 10 mg ng} Omeprazole Omepra 1.0 active Omeprazole eCW3 20 MG zole {caps 20 mg ([place] Delayed 20 mg ule} [facility] Release Health Oral Care) Capsule Omeprazole 20 mg lamotrigine Lamotr 1.0 active Lamotrigi ne eCW3 200 MG Oral igine {tabl 200 mg ([place] Tablet 200 mg et} [place] Lamotrigine Health 200 mg Care) lamotrigine Lamotr 1.0 active Lamotrigi ne eCW3 200 MG Oral igine {tabl 200 mg ([place] Tablet 200 mg et} [place] Lamotrigine Health 200 mg Care) 120 ACTUAT Advair 2.0 active Advair HFA eCW3 Fluticasone HFA {puff 230-21 ([place] propionate 230-21 s} MCG/ACT Rive r 0.23 MCG/AC Health MG/ACTUAT / T Care) salmeterol 0.021 MG/ACTUAT Metered Dose Inhaler [Advair] Advair HFA 230-21 MCG/ACT Albuterol Albute active Albuterol e CW3 0.83 MG/ML rol Sulfate (2.5 ( [place] Inhalant Sulfat MG/3ML) [place] Solution e (2.5 0.083% Health Albuterol MG/3ML Care) Sulfate ) (2.5 0.083% MG/3ML) 0.083% Blood Blood active Blood eCW3 Glucose Glucos Glucose Test ([facility] Test - e Test - [facility]) Multivitami UNK active Multivitami n eCW3 ns - s - ([facility]) Furosemide Furose 1.0 active Furosemide eCW3 40 MG Oral mide {tabl 40 mg ([place] Tablet 40 mg et} [place] Furosemide Health 40 mg Care) 120 ACTUAT Advair 2.0 active Advair HFA eCW3 Fluticasone HFA {puff 230-21 ([place] propionate 230-21 s} MCG/ACT Rive r 0.23 MCG/AC Health MG/ACTUAT / T Care) salmeterol 0.021 MG/ACTUAT Metered Dose Inhaler [Advair] Advair HFA 230-21 MCG/ACT Daily-[place] Daily- active Daily-[place] - eCW3 - [place] - ([facility]) pregabalin Lyrica 2.0 active Lyrica 100 eCW3 100 MG Oral 100 MG {caps MG ([place] Capsule ule} [facility] [Lyrica] [facility] Lyrica 100 Care) MG aripiprazol Aripip 1.0 active Aripipraz ole eCW3 e 10 MG razole {tabl 10 MG ([place] Oral Tablet 10 MG et} [facility] Aripiprazol Health e 10 MG Care) Omeprazole Omepra 1.0 active Omeprazole eCW3 20 MG zole {caps 20 mg ([place] Delayed 20 mg ule} [facility] Oral Care) Capsule Omeprazole 20 mg aripiprazol Aripip 1.0 active Aripipraz ole eCW3 e 10 MG razole {tabl 10 MG ([place] Oral Tablet 10 MG et} [facility] Aripiprazol Health e 10 MG Care) Hydroxyzine HydrOX 1.0 active HydrOXYzi ne eCW3 Pamoate 100 Yzine {caps Pamoate 100 ([place] MG Oral Pamoat ule} mg [place] Capsule e 100 Health HydrOXYzine mg Care) Pamoate 100 mg Isopropyl Alcoho active Alcohol Pre p eCW3 Alcohol 0.7 l Prep 70 % ([place] ML/ML 70 % [facility] Pad Alcohol Care) Prep 70 % Omeprazole Omepra 1.0 active Omeprazole eCW3 20 MG zole {caps 20 mg ([place] Delayed 20 mg ule} [facility] Oral Care) Capsule Omeprazole 20 mg lamotrigine Lamotr 1.0 active Lamotrigi ne eCW3 200 MG Oral igine {tabl 200 mg ([place]ud son Tablet 200 mg et} [place] Lamotrigine Health 200 mg Care) Daily-[place] Daily- active Daily-[place] - eCW3 - [place] - ([facility]) aripiprazol Aripip 1.0 active Aripipraz ole eCW3 e 10 MG razole {tabl 10 MG ([place] Oral Tablet 10 MG et} Lee Aripiprazol Health e 10 MG Care) Isopropyl Alcoho active Alcohol Pre p eCW3 Alcohol 0.7 l Prep 70 % ([place] ML/ML 70 % [place] [facility] Pad Alcohol Care) Prep 70 % Albuterol Albute active Albuterol e CW3 0.83 MG/ML rol Sulfate (2.5 ( [place] Inhalant Sulfat MG/3ML) [place] Solution e (2.5 0.083% Health Albuterol MG/3ML Care) Sulfate ) (2.5 0.083% MG/3ML) 0.083% montelukast Singul 1.0 active Singulair 10 eCW3 10 MG Oral air 10 {tabl mg ([place] Tablet mg et_in [place] [Singulair] _the_ [facility] Singulair eveni Care) 10 mg ng} Acetaminoph Oxycod active Oxycodone -Ac eCW3 en 325 MG / one-Ac etaminophen ([place] Oxycodone etamin 7.5-325 MG [facility] de 7.5 MG 7.5-32 Care) Oral Tablet 5 MG Oxycodone-A cetaminophe n 7.5-325 MG Albuterol Albute active Albuterol e CW3 0.83 MG/ML rol Sulfate (2.5 ( [place] Inhalant Sulfat MG/3ML) [place] Solution e (2.5 0.083% Health Albuterol MG/3ML Care) Sulfate ) (2.5 0.083% MG/3ML) 0.083% Multivitami UNK active Multivitami n eCW3 ns - s - ([facility]) Omeprazole Omepra 1.0 active Omeprazole eCW3 20 MG zole {caps 20 mg ([place] Delayed 20 mg ule} [facility] Oral Care) Capsule Omeprazole 20 mg Calcium 600 Calciu 1.0 active Calcium 6 00 eCW3 + D 600-200 m 600 {tabl + D 600-200 ([place] MG-UNIT + D et} MG-UNIT [place] 600-20 [place] [address] Care) MG-UNI T Calcium 600 Calciu 1.0 active Calcium 6 00 eCW3 + D 600-200 m 600 {tabl + D 600-200 ([place] MG-UNIT + D et} MG-UNIT [place] 600-20 [facility] 0 Care) MG-UNI T Omeprazole Omepra 1.0 active Omeprazole eCW3 20 MG zole {caps 20 mg ([place] Delayed 20 mg ule} [facility] Oral Care) Capsule Omeprazole 20 mg Daily-[place] Daily- active Daily-[place] - eCW3 - [place] - ([facility]) Acetaminoph Oxycod suspend Oxycodon e-Ac eCW3 en 325 MG / one-Ac ed etaminophen ([place] Oxycodone etamin 7.5-325 MG Ri aleks Hydrochlori oph Health de 7.5 MG 7.5-32 Care) Oral Tablet 5 MG Oxycodone-A cetaminophe n 7.5-325 MG Magnesium magnes 1 complet [place] Oxide 400 ium ed [place] MG Oral oxide Medical Tablet 400 mg Center magnesium Tablet oxide 400 , mg Tablet, Ordere Ordered By: d By: Deepika Jovel, Med, MDDirection MDDire s: 1 tablet ctions oral twice : 1 a day tablet oral twice a day pregabalin Lyrica 2.0 active Lyrica 100 eCW3 100 MG Oral 100 MG {caps MG ([place] Capsule ule} [place] [Lyrica] [facility] Lyrica 100 Care) MG Omeprazole Omepra 1.0 active Omeprazole eCW3 20 MG zole {caps 20 mg ([place] Delayed 20 mg ule} [facility] Oral Care) Capsule Omeprazole 20 mg Acetaminoph Oxycod active Oxycodone -Ac eCW3 en 325 MG / one-Ac etaminophen ([place] Oxycodone etamin 7.5-325 MG Ri aleks Hydrochlori ophen Health de 7.5 MG 7.5-32 Care) Oral Tablet 5 MG Oxycodone-A cetaminophe n 7.5-325 MG Fluticasone Flutic 1.0 active Fluticaso ne eCW3 Propionate asone {puff Propionate ( [place] 50 MCG/ACT Propio _in_e 50 MCG/ACT [place] nilo ach_n Health 50 ostri Care) MCG/AC l} T aripiprazol Aripip 1.0 active Aripipraz ole eCW3 e 10 MG razole {tabl 10 MG ([place] Oral Tablet 10 MG et} [place] Aripiprazol Health e 10 MG Care) Omeprazole Omepra 1.0 active Omeprazole eCW3 20 MG zole {caps 20 mg ([place] Delayed 20 mg ule} [place] Release Health Oral Care) Capsule Omeprazole 20 mg pregabalin Lyrica 2.0 active Lyrica 100 eCW3 100 MG Oral 100 MG {caps MG ([place] Capsule ule} [place] [Lyrica] Health Lyrica 100 Care) MG lamotrigine Lamotr 1.0 active Lamotrigi ne eCW3 200 MG Oral igine {tabl 200 mg ([place] son Tablet 200 mg et} [place] Lamotrigine Health 200 mg Care) Acetaminoph Oxycod suspend Oxycodon e-Ac eCW3 en 325 MG / one-Ac ed etaminophen ([place] Oxycodone etamin 7.5-325 MG Ri ale[place] Hydrochlori oph Health de 7.5 MG 7.5-32 Care) Oral Tablet 5 MG Oxycodone-A cetaminophe n 7.5-325 MG Albuterol Albute suspend Albuterol eCW3 0.83 MG/ML rol ed Sulfate (2.5 ( [place] Inhalant Sulfat MG/3ML) [place] Solution e (2.5 0.083% Health Albuterol MG/3ML Care) Sulfate ) (2.5 0.083% MG/3ML) 0.083% Acetaminoph Oxycod active Oxycodone -Ac eCW3 en 325 MG / one-Ac etaminophen ([place] Oxycodone etamin 7.5-325 MG Ri ale[place] Hydrochlori ophen Health de 7.5 MG 7.5-32 Care) Oral Tablet 5 MG Oxycodone-A cetaminophe n 7.5-325 MG lamotrigine Lamotr 1.0 active Lamotrigi ne eCW3 200 MG Oral igine {tabl 200 mg ([place] Tablet 200 mg et} [place] Lamotrigine Health 200 mg Care) Acetaminoph Oxycod active Oxycodone -Ac eCW3 en 325 MG / one-Ac etaminophen ([place] Oxycodone etamin 7.5-325 MG Ri aleks Hydrochlori ophen Health de 7.5 MG 7.5-32 Care) Oral Tablet 5 MG Oxycodone-A cetaminophe n 7.5-325 MG aripiprazol Aripip 1.0 active Aripipraz ole eCW3 e 10 MG razole {tabl 10 MG ([place] Oral Tablet 10 MG et} [place] Aripiprazol Health e 10 MG Care) Daily-[place] Daily- active Daily-[place] - eCW3 - [place] - ([facility]) Lancets - Lancet active Lancets - e CW3 s - ([facility]) montelukast Singul 1.0 active Singulair 10 eCW3 10 MG Oral air 10 {tabl mg ([place] Tablet mg et_in [place] [Singulair] _the_ Health Singulair eveni Care) 10 mg ng} Fluticasone Flutic 1.0 active Fluticaso ne eCW3 Propionate asone {puff Propionate ( [place] 50 MCG/ACT Propio _in_e 50 MCG/ACT [place] nilo ach_n Health 50 ostri Care) MCG/AC l} T Calcium 600 Calciu 1.0 active Calcium 6 00 eCW3 + D 600-200 m 600 {tabl + D 600-200 ([place] MG-UNIT + D et} MG-UNIT [place] 600-20 Health 0 Care) MG-UNI T Multivitami UNK active Multivitami n eCW3 ns - s - ([facility]) Omeprazole Omepra 1.0 active Omeprazole eCW3 20 MG zole {caps 20 mg ([place] Delayed 20 mg ule} [place] Release [facility] Oral Care) Capsule Omeprazole 20 mg Hydroxyzine HydrOX 1.0 active HydrOXYzi ne eCW3 Pamoate 100 Yzine {caps Pamoate 100 ([place] MG Oral Pamoat ule} mg [place] Capsule e 100 Health HydrOXYzine mg Care) Pamoate 100 mg aripiprazol Aripip 1.0 active Aripipraz ole eCW3 e 10 MG razole {tabl 10 MG ([place] Oral Tablet 10 MG et} [place] Aripiprazol [facility] e 10 MG Care) Isopropyl Alcoho active Alcohol Pre p eCW3 Alcohol 0.7 l Prep 70 % ([place] ML/ML 70 % [place] [facility] Alcohol Care) Prep 70 % Omeprazole Omepra 1.0 active Omeprazole eCW3 20 MG zole {caps 20 mg ([place] Delayed 20 mg ule} [facility] Health Oral Care) Capsule Omeprazole 20 mg Lancets - Lancet active Lancets - e CW3 s - ([facility]) Daily-[place] Daily- active Daily-[place] - eCW3 - [place] - ([facility]) Lancets - Lancet active Lancets - e CW3 s - ([facility]) aripiprazol Aripip 1.0 active Aripipraz ole eCW3 e 10 MG razole {tabl 10 MG ([place] Oral Tablet 10 MG et} [place] Aripiprazol [facility] e 10 MG Care) Blood Blood active Blood eCW3 Glucose Glucos Glucose Test (H udson Test - e Test - [facility]) Multivitami UNK active Multivitami n eCW3 ns - s - ([facility]) Multivitami UNK active Multivitami n eCW3 ns - s - ([facility]) Omeprazole omepra 1 complet Lety t 20 MG zole ed [place] Delayed 20 mg Medical Release capsul Center Oral e,jarrod Capsule yed omeprazole releas 20 mg e(DR/E capsule,del C), ayed Ordere release(/ d By: Deepika BARCENAS Ordered By: Deepika Jovel ctions MDDirection : 1 s: 1 capsul capsule e oral oral daily daily Acetaminoph Oxycod suspend Oxycodon e-Ac eCW3 en 325 MG / one-Ac ed etaminophen ([place] Oxycodone etamin 7.5-325 MG [place] ale[place] Hydrochlori oph Health de 7.5 MG 7.5-32 Care) Oral Tablet 5 MG Oxycodone-A cetaminophe n 7.5-325 MG montelukast markel 1 complet Jose Eduardo nt 10 MG Oral ukast ed [place] Tablet 10 mg Medical montelukast Tablet Center 10 mg , Tablet, Ordere Ordered By: d By: Med Hu MDDirection MDDire s: 1 tablet ctions oral daily : 1 tablet oral daily Loratadine lorata 1 complet Lety t 10 MG Oral dine ed [place] Tablet 10 mg Medical loratadine Tablet Center 10 mg , Tablet, Ordere Ordered By: d By: Med Hu MDDirection MDDire s: 1 tablet ctions oral daily : 1 tablet oral daily lamotrigine lamoTR 1 complet Jose Eduardo nt 200 MG Oral Igine ed [place] Tablet 200 mg Medical lamoTRIgine Tablet Center 200 mg , Tablet, Ordere Ordered By: d By: Med Hu MDDirection MDDire s: 1 tablet ctions oral daily : 1 tablet oral daily Zolpidem Ambien 1.0 active Ambien 10 mg eCW3 tartrate 10 10 mg {tabl ([place] MG Oral et_at [place] Tablet _[facility] [Ambien] madalyn} Care) Ambien 10 mg gabapentin gabape 1 complet Lety t 800 MG Oral ntin ed [place] Tablet 800 mg Medical gabapentin Tablet Center 800 mg , Tablet, Ordere Ordered By: d By: Med Hu MDDirection MDDire s: 1 tablet ctions oral three : 1 times a day tablet oral three times a day Blood Blood active Blood eCW3 Glucose Glucos Glucose Test ( udson Test - e Test - [facility]) 60 ACTUAT flutic 2 complet Advair HFA [place] Fluticasone asone ed [place] propionate propio Medical 0.23 n-salm Center MG/ACTUAT / eterol salmeterol (Advai 0.021 r HFA) MG/ACTUAT 230 Metered mcg-21 Dose mcg/Ac Inhaler tuatio [Advair] n HFA fluticasone Aeroso propion-[place] l meterol Inhale (Advair r, HFA) 230 Ordere mcg-21 d By: mcg/Actuati Deepika on HFA Med, Aerosol MDDire Inhaler, ctions Ordered By: : 2 Deepika Jovel, by MDDirection inhala s: 2 puff tion by twice inhalation a day twice a day Blood Blood active Blood eCW3 Glucose Glucos Glucose ([place] Monitor e Monitor [facility] Health w/Device r w/Device Care) System w/Babita ce Ergocalcife ergoca 1 complet Vitamin D2 [place] [address] lcifer ed [place] UNT Oral ol Medical Capsule (vitam Center ergocalcife in D2) rol (Vitam (vitamin in D2) D2) 50,000 (Vitamin unit D2) 50,000 Capsul unit e, Capsule, Ordere Ordered By: d By: Med Hu MDDirection MDDire s: 1 ctions capsule : 1 oral weekly capsul e oral weekly Baclofen 20 baclof 1 complet Jose Eduardo nt MG Oral en 20 ed [place] Tablet mg Medical baclofen 20 Tablet Center mg Tablet, , Ordered By: Arcadio Poe d By: Deepika Jovel MDDirection Jin, s: 1 tablet MDDire oral twice ctions a day : 1 tablet oral twice a day aripiprazol aripip 1 complet Jose Eduardo nt e 10 MG razole ed [place] Oral Tablet 10 mg Medical aripiprazol Tablet Center e 10 mg , Tablet, Ordere Ordered By: d By: Med Hu MDDirection MDDire s: 1 tablet ctions oral daily : 1 tablet oral daily Albuterol Albute active Albuterol e CW3 0.83 MG/ML rol Sulfate (2.5 ( [place] Inhalant Sulfat MG/3ML) [place] Solution e (2.5 0.083% Health Albuterol MG/3ML Care) Sulfate ) (2.5 0.083% MG/3ML) 0.083% Blood Blood active Blood eCW3 Glucose Glucos Glucose ([place] Monitor e Monitor [place] [facility] [facility] Health w/Device r w/Device Care) System w/Babita ce Blood Blood active Blood eCW3 Glucose Glucos Glucose ([place] Monitor e Monitor [place] [facility] [facility] Health w/Device r w/Device Care) System w/Babita ce Fluticasone Flutic 1.0 active Fluticaso ne eCW3 Propionate asone {puff Propionate ( [place] 50 MCG/ACT Propio _in_e 50 MCG/ACT [place] nilo ach_n Health 50 ostri Care) MCG/AC l} T Calcium 600 Calciu 1.0 active Calcium 6 00 eCW3 + D 600-200 m 600 {tabl + D 600-200 ([place] MG-UNIT + D et} MG-UNIT [place] 600-20 Health 0 Care) MG-UNI T ALBUTEROL UNK active ALBUTEROL eCW 3 SULFATE SULFATE ([place] 0.083% 2.5 0.083% 2.5 [place] mg/3 ml mg/3 ml [facility] Care) Furosemide Furose 1.0 active Furosemide eCW3 40 MG Oral mide {tabl 40 mg ([place] Tablet 40 mg et} [place] Furosemide Health 40 mg Care) Daily-[place] Daily- active Daily-[place] - eCW3 - [place] - ([facility]) Albuterol Albute suspend Albuterol eCW3 0.83 MG/ML rol ed Sulfate (2.5 ( [place] Inhalant Sulfat MG/3ML) [place] Solution e (2.5 0.083% Health Albuterol MG/3ML Care) Sulfate ) (2.5 0.083% MG/3ML) 0.083% Acetaminoph Oxycod active Oxycodone -Ac eCW3 en 325 MG / one-Ac etaminophen ([place] Oxycodone etamin 7.5-325 MG [facility] de 7.5 MG 7.5-32 Care) Oral Tablet 5 MG Oxycodone-A cetaminophe n 7.5-325 MG Blood Blood active Blood eCW3 Glucose Glucos Glucose Test (H udson Test - e Test - [facility]) Albuterol Albute active Albuterol e CW3 0.83 MG/ML rol Sulfate (2.5 ( [place] Inhalant Sulfat MG/3ML) [place] Solution e (2.5 0.083% Health Albuterol MG/3ML Care) Sulfate ) (2.5 0.083% MG/3ML) 0.083% montelukast Singul 1.0 active Singulair 10 eCW3 10 MG Oral air 10 {tabl mg ([place] Tablet mg et_in [place] [Singulair] _the_ Health Singulair eveni Care) 10 mg ng} Zolpidem Ambien 1.0 active Ambien 10 mg eCW3 tartrate 10 10 mg {tabl ([place] MG Oral et_at [place] Tablet _bedt Health [Ambien] madalyn} Care) Ambien 10 mg Zolpidem Ambien 1.0 active Ambien 10 mg eCW3 tartrate 10 10 mg {tabl ([place] MG Oral et_at [place] Tablet _bedt Health [Ambien] madalyn} Care) Ambien 10 mg No Known complet eCW2 Medications ed ([facility]) Hydroxyzine HydrOX 1.0 active HydrOXYzi ne eCW3 Pamoate 100 Yzine {caps Pamoate 100 ([place] MG Oral Pamoat ule} mg [place] Capsule e 100 Health HydrOXYzine mg Care) Pamoate 100 mg Blood Blood active Blood eCW3 Glucose Glucos Glucose Test (H udson Test - e [facility]) Multivitami UNK active Multivitami n eCW3 ns - s - ([facility]) Hydroxyzine HydrOX 1.0 active HydrOXYzi ne eCW3 Pamoate 100 Yzine {caps Pamoate 100 ([place] MG Oral Pamoat ule} mg [place] Capsule e 100 Health HydrOXYzine mg Care) Pamoate 100 mg pregabalin Lyrica 1.0 active Lyrica 150 eCW3 150 MG Oral 150 MG {caps MG ([place] Capsule ule} [place] [Lyrica] [facility] Lyrica 150 Care) MG Unknown complet eCW2 Medications ed ([facility]) Ibuprofen Ibupro active Ibuprofen e CW3 800 MG [facility] fen 800 [facility]) Blood Blood active Blood eCW3 Glucose Glucos Glucose Test (H son Test - e [facility]) ALBUTEROL UNK suspend ALBUTEROL eC W3 SULFATE ed SULFATE ([place] 0.083% 2.5 0.083% 2.5 [place] mg/3 ml mg/3 ml [facility] Care) Calcium 600 Calciu 1.0 active Calcium 6 00 eCW3 + D 600-200 m 600 {tabl + D 600-200 ([place] MG-UNIT + D et} MG-UNIT [place] 600-20 [facility] 0 [facility]) MG-UNI T Furosemide Furose 1.0 active Furosemide eCW3 40 MG Oral mide {tabl 40 mg ([place] Tablet 40 mg et} [place] Furosemide Health 40 mg Care) ALBUTEROL UNK suspend ALBUTEROL eC W3 SULFATE ed SULFATE ([place] 0.083% 2.5 0.083% 2.5 [place] mg/3 ml mg/3 ml Health Care) Acetaminoph Oxycod active Oxycodone -Ac eCW3 en 325 MG / one-Ac etaminophen ([place] Oxycodone etamin 7.5-325 MG Ri aleks Hydrochlori [facility] Health de 7.5 MG 7.5-32 Care) Oral Tablet 5 MG Oxycodone-A cetaminophe n 7.5-325 MG Hydroxyzine HydrOX 1.0 active HydrOXYzi ne eCW3 Pamoate 100 Yzine {caps Pamoate 100 ([place] MG Oral Pamoat ule} mg [place] Capsule e 100 Health HydrOXYzine mg Care) Pamoate 100 mg Isopropyl Alcoho active Alcohol Pre p eCW3 Alcohol 0.7 l Prep 70 % ([place] ML/ML 70 % [place] [facility]icated [facility] Pad Alcohol Care) Prep 70 % Vitamin D UNK 1.0 suspend Vitamin D eC W3 86900 UNIT {[place] [address] UNIT (H udson ule} [facility]) pregabalin Lyrica 2.0 active Lyrica 100 eCW3 100 MG Oral 100 MG {caps MG ([place] Capsule ule} [place] [Lyrica] [facility] Lyrica 100 Care) MG aripiprazol Aripip 1.0 active Aripipraz ole eCW3 e 10 MG razole {tabl 10 MG ([place] Oral Tablet 10 MG et} [place] Aripiprazol Health e 10 MG Care) Vitamin D UNK 1.0 suspend Vitamin D eC W3 13760 UNIT {[place] [address] UNIT (H udson ule} [facility]) Blood Blood active Blood eCW3 Glucose Glucos Glucose Test (H udson Test - e Test - [facility]) Hydroxyzine HydrOX 1.0 active HydrOXYzi ne eCW3 Pamoate 100 Yzine {caps Pamoate 100 ([place] MG Oral Pamoat ule} mg [place] Capsule e 100 Health HydrOXYzine mg Care) Pamoate 100 mg Isopropyl Alcoho active Alcohol Pre p eCW3 Alcohol 0.7 l Prep 70 % ([place] ML/ML 70 % [place] [facility] Alcohol Care) Prep 70 % Isopropyl Alcoho active Alcohol Pre p eCW3 Alcohol 0.7 l Prep 70 % ([place] ML/ML 70 % [place] [facility] Alcohol Care) Prep 70 % Albuterol Albute active Albuterol e CW3 0.83 MG/ML rol Sulfate (2.5 ( [place] Inhalant Sulfat MG/3ML) [place] Solution e (2.5 0.083% Health Albuterol MG/3ML Care) Sulfate ) (2.5 0.083% MG/3ML) 0.083% Multivitami UNK active Multivitami n eCW3 ns - s - ([facility]) Calcium 600 Calciu 1.0 active Calcium 6 00 eCW3 + D 600-200 m 600 {tabl + D 600-200 ([place] MG-UNIT + D et} MG-UNIT Lee 600-[address]) MG-UNI T Calcium 600 Calciu 1.0 active Calcium 6 00 eCW3 + D 600-200 m 600 {tabl + D 600-200 ([place] MG-UNIT + D et} MG-UNIT [place] 600-[address]) MG-UNI T Vitamin D UNK 1.0 suspend Vitamin D eC W3 72920 UNIT {[place] [address] UNIT (H udson ule} [facility]) Multivitami UNK active Multivitami n eCW3 ns - s - ([facility]) Lancets - Lancet active Lancets - e CW3 s - ([facility]) ALBUTEROL UNK active ALBUTEROL eCW 3 SULFATE SULFATE ([place] 0.083% 2.5 0.083% 2.5 [place] mg/3 ml mg/3 ml [facility] Care) Omeprazole Omepra 1.0 active Omeprazole eCW3 20 MG zole {caps 20 mg ([place] Delayed 20 mg ule} [facility] Oral Care) Capsule Omeprazole 20 mg Zolpidem Ambien 1.0 active Ambien 10 mg eCW3 tartrate 10 10 mg {tabl ([place] MG Oral et_at [place] Tablet _[facility] [Ambien] madalyn} [facility]) Ambien 10 mg 120 ACTUAT Advair 2.0 active Advair HFA eCW3 Fluticasone HFA {puff 230-21 ([place] propionate 230-21 s} MCG/ACT Rive r 0.23 MCG/AC Health MG/ACTUAT / T Care) salmeterol 0.021 MG/ACTUAT Metered Dose Inhaler [Advair] Advair HFA 230-21 MCG/ACT Zolpidem Ambien 1.0 active Ambien 10 mg eCW3 tartrate 10 10 mg {tabl ([place] MG Oral et_at [place] Tablet _bedt Health [Ambien] madalyn} Care) Ambien 10 mg 120 ACTUAT Advair 2.0 active Advair HFA eCW3 Fluticasone HFA {puff 230-21 ([place] propionate 230-21 s} MCG/ACT Rive r 0.23 MCG/AC Health MG/ACTUAT / T Care) salmeterol 0.021 MG/ACTUAT Metered Dose Inhaler [Advair] Advair HFA 230-21 MCG/ACT Zolpidem Ambien 1.0 active Ambien 10 mg eCW3 tartrate 10 10 mg {tabl ([place] MG Oral et_at [place] Tablet _bedt Health [Ambien] madalyn} Care) Ambien 10 mg pregabalin Lyrica 2.0 active Lyrica 100 eCW3 100 MG Oral 100 MG {caps MG ([place] Capsule ule} [place] [Lyrica] [facility] Lyrica 100 Care) MG Zolpidem Ambien 1.0 active Ambien 10 mg eCW3 tartrate 10 10 mg {tabl ([place] MG Oral et_at [place] Tablet _bedt Health [Ambien] madalyn} Care) Ambien 10 mg Multivitami UNK active Multivitami n eCW3 ns - s - ([facility] Care) Acetaminoph Oxycod active Oxycodone -Ac eCW3 en 325 MG / one-Ac etaminophen ([place] Oxycodone etamin 7.5-325 MG Ri aleks [facility] de 7.5 MG 7.5-32 Care) Oral Tablet 5 MG Oxycodone-A cetaminophe n 7.5-325 MG pregabalin Lyrica 1.0 active Lyrica 150 eCW3 150 MG Oral 150 MG {caps MG ([place] Capsule ule} [place] [Lyrica] Health Lyrica 150 Care) MG Acetaminoph Oxycod active Oxycodone -Ac eCW3 en 325 MG / one-Ac etaminophen ([place] Oxycodone etamin 7.5-325 MG Ri aleks Hydrochlori oph Health de 7.5 MG 7.5-32 Care) Oral Tablet 5 MG Oxycodone-A cetaminophe n 7.5-325 MG Isopropyl Alcoho active Alcohol Pre p eCW3 Alcohol 0.7 l Prep 70 % ([place] ML/ML 70 % [place] Medicated Health [facility] Alcohol Care) Prep 70 % Lancets - Lancet active Lancets - e CW3 s - ([facility]) Blood Blood active Blood eCW3 Glucose Glucos Glucose ([place] Monitor e Monitor [place] System [place] [facility] Health w/Device r w/Device Care) System w/Babita ce Isopropyl Alcoho active Alcohol Pre p eCW3 Alcohol 0.7 l Prep 70 % ([place] ML/ML 70 % [place] Medicated Health [facility] Alcohol Care) Prep 70 % Hydroxyzine HydrOX 1.0 active HydrOXYzi ne eCW3 Pamoate 100 Yzine {caps Pamoate 100 ([place] MG Oral Pamoat ule} mg [place] Capsule e 100 Health HydrOXYzine mg Care) Pamoate 100 mg Lancets - Lancet active Lancets - e CW3 s - ([facility]) Ibuprofen Ibupro active Ibuprofen e CW3 800 MG Oral fen 800 [facility]) 120 ACTUAT Advair 2.0 active Advair HFA eCW3 Fluticasone HFA {puff 230-21 ([place] propionate 230-21 s} MCG/ACT Rive r 0.23 MCG/AC Health MG/ACTUAT / T Care) salmeterol 0.021 MG/ACTUAT Metered Dose Inhaler [Advair] Advair HFA 230-21 MCG/ACT lamotrigine Lamotr 1.0 active Lamotrigi ne eCW3 200 MG Oral igine {tabl 200 mg ([facility] son Tablet 200 mg et} [place] Lamotrigine Health 200 mg Care) Albuterol Albute active Albuterol e CW3 0.83 MG/ML rol Sulfate (2.5 ( [place] Inhalant Sulfat MG/3ML) [place] Solution e (2.5 0.083% Health Albuterol MG/3ML Care) Sulfate ) (2.5 0.083% MG/3ML) 0.083% Daily-[place] Daily- active Daily-[place] - eCW3 - [place] - ([facility]) pregabalin Lyrica 1.0 active Lyrica 150 eCW3 150 MG Oral 150 MG {caps MG ([facility] on Capsule ule} Lee [Lyrica] Health Lyrica 150 Care) MG aripiprazol Aripip 1.0 active Aripipraz ole eCW3 e 10 MG razole {tabl 10 MG ([place] Oral Tablet 10 MG et} [place] Aripiprazol Health e 10 MG Care) Insurance Providers Payer name Policy type Policy ID Covered Covered democrat's Policy P ana m / Coverage democrat ID relationship to Pizarro Inf ormation type pizarro MVP [place] [id number] [place] [id number] O MVP/HHP [id number] self [id number] MVP/HHP O [id number] 01 [id number] MVP PSYCH OP O [id number] 01 [id number] [place] [id number] self [id number] HEALTH OPTION [place] O [id number] 01 [id number] HEALTH OPTION [place] [id number] self [id number] HEALTH OPTIONS MVP/HHP O [id number] 01 [id number] 600 W [id number] 01 [id number] [place] O [id number] 01 [id number] HEALTH ACUTE W [id number] 01 [id number] O [id number] 01 [id number] 600 MEDICAID [id number] [facility] [id number] PLANS [facility] [place] [id number] [place] [id number] [facility] Problems, Conditions, and Diagnoses Code Display Name Description Problem Effective Data Type Dates Source(s) K14.6 Tongue pain Tongue pain Problem 12/29/2019 eCW3 12:00:00 AM ([facility]) L89.90 Pressure ulcer of Bed sore Problem 09/18/2019 eCW3 unspecified site, 12:00:00 AM ([facility] n unspecified stage [facility]) E78.5 Hyperlipidemia Hyperlipidemia, Problem 09/18/2019 eCW3 unspecified 12:00:00 AM ([facility]) E78.5 Hyperlipidemia Hyperlipidemia, Problem 09/18/2019 eCW3 unspecified 12:00:00 AM ([facility]) L89.90 Pressure ulcer of Bed sore Problem 09/18/2019 eCW3 unspecified site, 12:00:00 [facility] E11.42 Diabetic polyneuropathy Diabetic Problem 08/18/2019 e CW3 polyneuropathy 12:00:00 AM ([facility]) E11.42 Diabetic polyneuropathy Diabetic Problem 08/18/2019 e CW3 polyneuropathy 12:00:00 AM ([facility]) E11.42 Diabetic polyneuropathy Diabetic Problem 08/18/2019 e CW3 polyneuropathy 12:00:00 AM ([facility]) E11.21 Type 2 diabetes Type 2 diabetes Problem 05/15/2019 eCW3 mellitus with diabetic mellitus with diabetic 1 2:00:00 AM ([place] nephropathy, nephropathy, EST [place] unspecified whether unspecified whether Health fci insulin use fci insulin use Care) E11.21 Type 2 diabetes Type 2 diabetes Problem 05/15/2019 eCW3 mellitus with diabetic mellitus with diabetic 1 2:00:00 AM ([place] nephropathy, nephropathy, EST [place] unspecified whether unspecified whether Health fci insulin use fci insulin use Care) E11.21 Type 2 diabetes Type 2 diabetes Problem 05/15/2019 eCW3 mellitus with diabetic mellitus with diabetic 1 2:00:00 AM ([place] nephropathy, nephropathy, [place] unspecified whether unspecified whether Health termite treater helper insulin use fci insulin use Care) E11.42 Type 2 diabetes Type 2 diabetes Problem 04/08/2019 eCW3 mellitus with diabetic mellitus with diabetic 1 2:00:00 AM ([place] polyneuropathy, polyneuropathy, [place] unspecified whether unspecified whether Health fci insulin use fci insulin use Care) G95.9 Myelopathy Myelopathy Problem 03/10/2019 eCW3 12:00:00 AM ([facility]) G95.9 Myelopathy Myelopathy Problem 03/10/2019 eCW3 12:00:00 AM ([facility]) G95.9 Myelopathy Myelopathy Problem 03/10/2019 eCW3 12:00:00 AM ([facility]) G95.9 Myelopathy Myelopathy Problem 03/10/2019 eCW3 12:00:00 AM ([facility]) E11.40 Diabetes mellitus with Diabetes mellitus with Problem 0 01/01/2019 eCW3 neuropathy neuropathy 12:00:00 AM ([facility]) E11.40 Diabetes mellitus with Diabetes mellitus with Problem 0 01/01/2019 eCW3 neuropathy neuropathy 12:00:00 AM ([facility]) E11.40 Diabetes mellitus with Diabetes mellitus with Problem 0 01/01/2019 eCW3 neuropathy neuropathy 12:00:00 AM (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) E11.9 Diabetes mellitus Diabetes mellitus Problem 08/27/2018 eCW3 12:00:00 AM ([facility]) E11.9 Diabetes mellitus Diabetes mellitus Problem 08/27/2018 eCW3 12:00:00 AM ([facility]) 272.0 Hypercholesterolemia Hypercholesterolemia Problem 08/27 eCW3 12:00:00 AM ([facility]) E11.9 Diabetes mellitus Diabetes mellitus Problem 08/27/2018 eCW3 12:00:00 AM ([facility]) 272.0 Hypercholesterolemia Hypercholesterolemia Problem 08/27 eCW3 12:00:00 AM ([facility]) E11.9 Diabetes mellitus Diabetes mellitus Problem 08/27/2018 eCW3 12:00:00 AM ([facility]) 272.0 Hypercholesterolemia Hypercholesterolemia Problem 08/27 eCW3 12:00:00 AM ([facility]) E11.9 Diabetes mellitus Diabetes mellitus Problem 08/27/2018 eCW3 12:00:00 AM ([facility]) G62.9 Polyneuropathy Polyneuropathy Problem 08/01/2018 eCW3 12:00:00 AM ([facility]) G62.9 Polyneuropathy Polyneuropathy Problem 08/01/2018 eCW3 12:00:00 AM ([facility]) G62.9 Polyneuropathy Polyneuropathy Problem 08/01/2018 eCW3 12:00:00 AM ([facility]) G62.9 Polyneuropathy Polyneuropathy Problem 08/01/2018 eCW3 12:00:00 AM ([facility]) G62.9 Polyneuropathy Polyneuropathy Problem 08/01/2018 eCW3 12:00:00 AM ([facility]) G62.9 Polyneuropathy Polyneuropathy Problem 08/01/2018 eCW3 12:00:00 AM (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 12:00:00 AM ([place] syndromes, not malformation [place] elsewhere classified syndromes, not Health elsewhere classified Care ) 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 12:00:00 AM ([place] syndromes, not malformation [place] elsewhere classified syndromes, not Health elsewhere classified Care ) I89.0 Lymphedema Lymphedema Problem 07/04/2018 eCW3 12:00:00 AM ([facility]) 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 12:00:00 AM ([place] syndromes, not malformation [place] elsewhere classified syndromes, not Health elsewhere classified Care ) I89.0 Lymphedema Lymphedema Problem 07/04/2018 eCW3 12:00:00 AM ([facility]) I89.0 Lymphedema Lymphedema Problem 07/04/2018 eCW3 12:00:00 AM ([facility]) 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 12:00:00 AM ([place] syndromes, not malformation [place] elsewhere classified syndromes, not Health elsewhere classified Care ) I89.0 Lymphedema Lymphedema Problem 07/04/2018 eCW3 12:00:00 AM ([facility]) 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 12:00:00 AM ([place] syndromes, not malformation [place] elsewhere classified syndromes, not Health elsewhere classified Care ) I89.0 Lymphedema Lymphedema Problem 07/04/2018 eCW3 12:00:00 AM ([facility]) 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 12:00:00 AM ([place] syndromes, not malformation [place] elsewhere classified syndromes, not Health elsewhere classified Care ) F17.210 Cigarette nicotine Cigarette nicotine Problem 9 eCW3 dependence without dependence without 12:00:00 AM ([facility]) I10 Essential hypertension Essential (primary) Problem 05/08 eCW3 hypertension 12:00:00 AM ([facility]) I10 Essential hypertension Essential (primary) Problem 05/08 eCW3 hypertension 12:00:00 AM ([facility]) F17.210 Cigarette nicotine Cigarette nicotine Problem 9 eCW3 dependence without dependence without 12:00:00 AM ([facility]) I10 Essential hypertension Essential (primary) Problem 05/08 eCW3 hypertension 12:00:00 AM ([facility]) F17.210 Cigarette nicotine Cigarette nicotine Problem 9 eCW3 dependence without dependence without 12:00:00 AM ([place] complication complication [facility]) I10 Essential hypertension Essential (primary) Problem 05/08 eCW3 hypertension 12:00:00 AM ([facility]) F17.210 Cigarette nicotine Cigarette nicotine Problem 9 eCW3 dependence without dependence without 12:00:00 AM ([place] complication complication [facility]) F17.200 Tobacco user Nicotine dependence, Problem 06/03/2018 eC W3 unspecified, 12:00:00 AM ([place] uncomplicated [facility]) J45.909 Asthma without status Unspecified asthma, Problem 06/03 eCW3 asthmaticus uncomplicated 12:00:00 AM ([facility]) I10 Essential hypertension Essential (primary) Problem 05/08 eCW3 hypertension 12:00:00 AM ([facility]) F17.210 Cigarette nicotine Cigarette nicotine Problem 9 eCW3 dependence without dependence without 12:00:00 AM ([place] complication complication [facility]) F17.200 Tobacco user Nicotine dependence, Problem 06/03/2018 eC W3 unspecified, 12:00:00 AM ([place] uncomplicated [facility]) J45.909 Asthma without status Unspecified asthma, Problem 06/03 eCW3 asthmaticus uncomplicated 12:00:00 AM ([facility]) F17.210 Cigarette nicotine Cigarette nicotine Problem 9 eCW3 dependence without dependence without 12:00:00 AM ([place] complication complication [facility]) F17.200 Tobacco user Nicotine dependence, Problem 06/03/2018 eC W3 unspecified, 12:00:00 AM ([place] uncomplicated [facility]) I10 Essential hypertension Essential (primary) Problem 05/08 eCW3 hypertension 12:00:00 AM ([facility]) J45.909 Asthma without status Unspecified asthma, Problem 06/03 eCW3 asthmaticus uncomplicated 12:00:00 AM ([facility]) I10 Essential hypertension Essential (primary) Problem 05/08 eCW3 hypertension 12:00:00 AM ([facility]) J45.909 Asthma without status Unspecified asthma, Problem 06/03 eCW3 asthmaticus uncomplicated 12:00:00 AM ([facility]) F17.210 Cigarette nicotine Cigarette nicotine Problem 9 eCW3 dependence without dependence without 12:00:00 AM ([facility]) E66.01 Morbid obesity Morbid obesity Problem 05/03/2018 eCW3 12:00:00 AM ([facility]) F20.89 Other schizophrenia Other schizophrenia Problem 018 eCW3 12:00:00 AM ([facility]) E66.01 Morbid obesity Morbid obesity Problem 05/03/2018 eCW3 12:00:00 AM ([facility]) F20.89 Other schizophrenia Other schizophrenia Problem 018 eCW3 12:00:00 AM ([facility]) F20.89 Other schizophrenia Other schizophrenia Problem 018 eCW3 12:00:00 AM ([facility]) E66.01 Morbid obesity Morbid obesity Problem 05/03/2018 eCW3 12:00:00 AM ([facility]) E66.01 Morbid obesity Morbid obesity Problem 05/03/2018 eCW3 12:00:00 AM ([facility]) F20.89 Other schizophrenia Other schizophrenia Problem 018 eCW3 12:00:00 AM ([facility]) G62.9 Neuropathy Neuropathy Problem 01/31/2018 eCW3 12:00:00 AM ([facility]) G62.9 Neuropathy Neuropathy Problem 01/31/2018 eCW3 12:00:00 AM ([facility]) G62.9 Neuropathy Neuropathy Problem 01/31/2018 eCW2 12:00:00 AM ([facility]) G62.9 Neuropathy Neuropathy Problem 01/31/2018 eCW2 12:00:00 AM ([facility]) G62.9 Neuropathy Neuropathy Problem 01/31/2018 eCW3 12:00:00 AM ([facility]) G62.9 Neuropathy Neuropathy Problem 01/31/2018 eCW3 12:00:00 AM ([facility]) G62.9 Neuropathy Neuropathy Problem 01/31/2018 eCW3 12:00:00 AM ([facility]) F20.9 Schizophrenia, Schizophrenia, Problem 07/20/2017 eCW3 unspecified type unspecified type 12:00:00 AM ( [facility]) F20.9 Schizophrenia, Schizophrenia, Problem 07/20/2017 eCW3 unspecified type unspecified type 12:00:00 AM ( [facility]) F20.9 Schizophrenia, Schizophrenia, Problem 07/20/2017 eCW3 unspecified type unspecified type 12:00:00 AM ( [facility]) F20.9 Schizophrenia, Schizophrenia, Problem 07/20/2017 eCW3 unspecified type unspecified type 12:00:00 AM ( [facility]) F20.9 Schizophrenia, Schizophrenia, Problem 07/20/2017 eCW2 unspecified type unspecified type 12:00:00 AM ( [facility]) F20.9 Schizophrenia, Schizophrenia, Problem 07/20/2017 eCW2 unspecified type unspecified type 12:00:00 AM ( [facility]) F20.9 Schizophrenia, Schizophrenia, Problem 07/20/2017 eCW3 unspecified type unspecified type 12:00:00 AM ( [facility]) F20.9 Schizophrenia, Schizophrenia, Problem 07/20/2017 eCW3 unspecified type unspecified type 12:00:00 AM ( [facility]) F20.9 Schizophrenia, Schizophrenia, Problem 07/20/2017 eCW3 unspecified type unspecified type 12:00:00 AM ( [facility]) H52.4 Presbyopia of both eyes Presbyopia of both Problem 07/2017 eCW3 eyes 12:00:00 AM ([facility]) H52.4 Presbyopia of both eyes Presbyopia of both Problem 07/2017 eCW2 eyes 12:00:00 AM ([facility]) H52.4 Presbyopia of both eyes Presbyopia of both Problem 0 07/2017 eCW2 eyes 12:00:00 AM ([facility]) H52.4 Presbyopia of both eyes Presbyopia of both Problem 0 07/2017 eCW3 eyes 12:00:00 AM ([facility]) H52.4 Presbyopia of both eyes Presbyopia of both Problem 0 07/2017 eCW3 eyes 12:00:00 AM ([facility]) H52.4 Presbyopia of both eyes Presbyopia of both Problem 0 07/2017 eCW3 eyes 12:00:00 AM ([facility]) E66.01 Morbid obesity Morbid (severe) Problem 05/28/2017 eCW2 obesity due to excess 12:00:00 AM ([facility]) E66.01 Morbid obesity Morbid (severe) Problem 05/28/2017 eCW2 obesity due to excess 12:00:00 AM ([facility]) M15.9 Osteoarthritis Polyosteoarthritis, Problem 02/23/2017 e CW3 unspecified 12:00:00 AM ([facility]) K21.0 Gastro-esophageal Gastro-esophageal Problem 02/23/2017 eCW3 reflux disease with reflux disease with 12:00:0 0 AM [facility]) M54.89 Backache Other dorsalgia Problem 02/23/2017 eCW3 12:00:00 AM ([facility]) K21.0 Gastro-esophageal Gastro-esophageal Problem 02/23/2017 eCW3 reflux disease with reflux disease with 12:00:0 0 [facility] [facility] M54.89 Backache Other dorsalgia Problem 02/23/2017 eCW3 12:00:00 AM ([facility]) M15.9 Osteoarthritis Polyosteoarthritis, Problem 02/23/2017 e CW3 unspecified 12:00:00 AM ([facility]) M54.89 Backache Other dorsalgia Problem 02/23/2017 eCW3 12:00:00 AM ([facility]) M15.9 Osteoarthritis Polyosteoarthritis, Problem 02/23/2017 e CW3 unspecified 12:00:00 AM ([facility]) K21.0 Gastro-esophageal Gastro-esophageal Problem 02/23/2017 eCW3 reflux disease with reflux disease with 12:00:0 0 AM ([facility]) M15.9 Osteoarthritis Polyosteoarthritis, Problem 02/23/2017 e CW3 unspecified 12:00:00 AM ([facility]) K21.0 Gastro-esophageal Gastro-esophageal Problem 02/23/2017 eCW3 reflux disease with reflux disease with 12:00:0 0 AM ([facility]) M54.89 Backache Other dorsalgia Problem 02/23/2017 eCW3 12:00:00 AM ([facility]) K21.0 Gastro-esophageal Gastro-esophageal Problem 02/23/2017 eCW3 reflux disease with reflux disease with 12:00:0 0 AM ([facility]) M15.9 Osteoarthritis Polyosteoarthritis, Problem 02/23/2017 e CW2 unspecified 12:00:00 AM ([facility]) K21.0 Gastro-esophageal Gastro-esophageal Problem 02/23/2017 eCW2 reflux disease with reflux disease with 12:00:0 0 [facility] M54.89 Backache Other dorsalgia Problem 02/23/2017 eCW2 12:00:00 AM ([facility]) M15.9 Osteoarthritis Polyosteoarthritis, Problem 02/23/2017 e CW2 unspecified 12:00:00 AM ([facility]) K21.0 Gastro-esophageal Gastro-esophageal Problem 02/23/2017 eCW2 reflux disease with reflux disease with 12:00:0 0 AM ([place] esophagitis esophagitis [facility]) M54.89 Backache Other dorsalgia Problem 02/23/2017 eCW2 12:00:00 AM ([facility]) K21.0 Gastro-esophageal Gastro-esophageal Problem 02/23/2017 eCW3 reflux disease with reflux disease with 12:00:0 0 AM ([facility]) M54.89 Backache Other dorsalgia Problem 02/23/2017 eCW3 12:00:00 AM ([facility]) M15.9 Osteoarthritis Polyosteoarthritis, Problem 02/23/2017 e CW3 unspecified 12:00:00 AM ([facility]) K21.0 Gastro-esophageal Gastro-esophageal Problem 02/23/2017 eCW3 reflux disease with reflux disease with 12:00:0 0 AM ([facility]) M54.89 Backache Other dorsalgia Problem 02/23/2017 eCW3 12:00:00 AM ([facility]) M15.9 Osteoarthritis Polyosteoarthritis, Problem 02/23/2017 e CW3 unspecified 12:00:00 AM ([facility]) K21.0 Gastro-esophageal Gastro-esophageal Problem 02/23/2017 eCW3 reflux disease with reflux disease with 12:00:0 0 AM ([facility]) M54.89 Backache Other dorsalgia Problem 02/23/2017 eCW3 12:00:00 AM ([facility]) M15.9 Osteoarthritis Polyosteoarthritis, Problem 02/23/2017 e CW3 unspecified 12:00:00 AM ([facility]) J45.40 Asthma, moderate Asthma, moderate Problem 10/25/2016 eC W3 persistent persistent 12:00:00 AM ([facility]) J45.40 Asthma, moderate Asthma, moderate Problem 10/25/2016 eC W3 persistent persistent 12:00:00 AM ([facility]) J45.40 Asthma, moderate Asthma, moderate Problem 10/25/2016 eC W3 persistent persistent 12:00:00 AM ([facility]) J45.40 Asthma, moderate Asthma, moderate Problem 10/25/2016 eC W3 persistent persistent 12:00:00 AM ([facility]) J45.40 Asthma, moderate Asthma, moderate Problem 10/25/2016 eC W2 persistent persistent 12:00:00 AM ([facility]) J45.40 Asthma, moderate Asthma, moderate Problem 10/25/2016 eC W2 persistent persistent 12:00:00 AM ([facility]) J45.40 Asthma, moderate Asthma, moderate Problem 10/25/2016 eC W3 persistent persistent 12:00:00 AM ([facility]) J45.40 Asthma, moderate Asthma, moderate Problem 10/25/2016 eC W3 persistent persistent 12:00:00 AM ([facility]) J45.40 Asthma, moderate Asthma, moderate Problem 10/25/2016 eC W3 persistent persistent 12:00:00 AM ([facility]) H05.20 Exophthalmos Exophthalmos Problem 07/20/2016 eCW3 12:00:00 AM ([facility]) H05.20 Exophthalmos Exophthalmos Problem 07/20/2016 eCW3 12:00:00 AM ([facility]) H05.20 Exophthalmos Exophthalmos Problem 07/20/2016 eCW3 12:00:00 AM ([facility]) H05.20 Exophthalmos Exophthalmos Problem 07/20/2016 eCW3 12:00:00 AM ([facility]) H05.20 Exophthalmos Exophthalmos Problem 07/20/2016 eCW3 12:00:00 AM ([facility]) H05.20 Exophthalmos Exophthalmos Problem 07/20/2016 eCW2 12:00:00 AM ([facility]) H05.20 Exophthalmos Exophthalmos Problem 07/20/2016 eCW2 12:00:00 AM ([facility]) H05.20 Exophthalmos Exophthalmos Problem 07/20/2016 eCW3 12:00:00 AM ([facility]) H05.20 Exophthalmos Exophthalmos Problem 07/20/2016 eCW3 12:00:00 AM ([facility]) H05.20 Exophthalmos Exophthalmos Problem 07/20/2016 eCW3 12:00:00 AM ([facility]) M47.27 Lumbosacral spondylosis Lumbosacral Problem 07/10/2016 eCW3 with radiculopathy spondylosis with 12:00:00 AM ([place] radiculopathy [facility]) M47.27 Lumbosacral spondylosis Lumbosacral Problem 07/10/2016 eCW3 with radiculopathy spondylosis with 12:00:00 AM ([place] radiculopathy [facility]) M47.27 Lumbosacral spondylosis Lumbosacral Problem 07/10/2016 eCW3 with radiculopathy spondylosis with 12:00:00 AM ([place] radiculopathy [facility]) M47.27 Lumbosacral spondylosis Lumbosacral Problem 07/10/2016 eCW3 with radiculopathy spondylosis with 12:00:00 AM ([place] radiculopathy [facility]) M47.27 Lumbosacral spondylosis Lumbosacral Problem 07/10/2016 eCW2 with radiculopathy spondylosis with 12:00:00 AM ([place] radiculopathy [facility]) M47.27 Lumbosacral spondylosis Lumbosacral Problem 07/10/2016 eCW2 with radiculopathy spondylosis with 12:00:00 AM ([place] radiculopathy [facility]) M47.27 Lumbosacral spondylosis Lumbosacral Problem 07/10/2016 eCW3 with radiculopathy spondylosis with 12:00:00 AM ([place] radiculopathy [facility]) M47.27 Lumbosacral spondylosis Lumbosacral Problem 07/10/2016 eCW3 with radiculopathy spondylosis with 12:00:00 AM ([place] radiculopathy [facility]) M47.27 Lumbosacral spondylosis Lumbosacral Problem 07/10/2016 eCW3 with radiculopathy spondylosis with 12:00[facility] Z12.39 Breast screening Breast screening Problem 04/27/2016 eC W2 12:00:00 AM ([facility]) Z12.39 Breast screening Breast screening Problem 04/27/2016 eC W2 12:00:00 AM ([facility]) Z12.39 Breast screening Breast screening Problem 04/27/2016 eC W3 12:00:00 AM ([facility]) Z12.39 Breast screening Breast screening Problem 04/27/2016 eC W3 12:00:00 AM ([facility]) E11.9 Type II diabetes Type 2 diabetes Problem 04/12/2016 eCW 2 mellitus without mellitus without 12:00:00 AM ( [place] complication complications [facility]) E11.9 Type II diabetes Type 2 diabetes Problem 04/12/2016 eCW 2 mellitus without mellitus without 12:00:00 AM ( [place] complication complications [facility]) E11.9 Type II diabetes Type 2 diabetes Problem 04/12/2016 eCW 3 mellitus without mellitus without 12:00:00 AM ( [place] complication complications [facility]) E11.9 Type II diabetes Type 2 diabetes Problem 04/12/2016 eCW 3 mellitus without mellitus without 12:00:00 AM ( [place] complication complications [facility]) E11.9 Type II diabetes Type 2 diabetes Problem 04/12/2016 eCW 3 mellitus without mellitus without 12:00:00 AM ( [place] complication complications [facility]) H25.13 Nuclear age-related Nuclear age-related Problem 016 eCW3 cataract, both eyes cataract, both eyes 12:00:0 0 AM ([facility]) H25.13 Nuclear age-related Nuclear age-related Problem 016 eCW2 cataract, both eyes cataract, both eyes 12:00:0 0 AM ([facility]) H25.13 Nuclear age-related Nuclear age-related Problem 016 eCW2 cataract, both eyes cataract, both eyes 12:00:0 0 AM ([facility]) H25.13 Nuclear age-related Nuclear age-related Problem 016 eCW3 cataract, both eyes cataract, both eyes 12:00:0 0 AM ([facility]) H25.13 Nuclear age-related Nuclear age-related Problem 016 eCW3 cataract, both eyes cataract, both eyes 12:00:0 0 AM ([facility]) H25.13 Nuclear age-related Nuclear age-related Problem 016 eCW3 cataract, both eyes cataract, both eyes 12:00:0 0 AM ([facility]) J41.0 Simple chronic Simple chronic Problem 10/29/2015 eCW2 bronchitis bronchitis 12:00:00 AM ([facility]) J41.0 Simple chronic Simple chronic Problem 10/29/2015 eCW2 bronchitis bronchitis 12:00:00 AM ([facility]) J41.0 Simple chronic Simple chronic Problem 10/29/2015 eCW3 bronchitis bronchitis 12:00:00 AM ([facility]) J41.0 Simple chronic Simple chronic Problem 10/29/2015 eCW3 bronchitis bronchitis 12:00:00 AM ([facility]) M25.551 Right hip pain Right hip pain Problem 06/02/2015 eCW2 12:00:00 AM ([facility]) M25.551 Right hip pain Right hip pain Problem 06/02/2015 eCW2 12:00:00 AM ([facility]) M25.551 Right hip pain Right hip pain Problem 06/02/2015 eCW3 12:00:00 AM ([facility]) M25.551 Right hip pain Right hip pain Problem 06/02/2015 eCW3 12:00:00 AM ([facility]) E78.0 Pure Hypercholesteremia Problem 03/23/2015 eCW3 hypercholesterolemia 12:00:00 AM ([facility]) E78.0 Pure Hypercholesteremia Problem 03/23/2015 eCW3 hypercholesterolemia 12:00:00 AM ([facility]) E78.0 Pure Hypercholesteremia Problem 03/23/2015 eCW3 hypercholesterolemia 12:00:00 AM ([facility]) E78.0 Pure Hypercholesteremia Problem 03/23/2015 eCW3 hypercholesterolemia 12:00:00 AM ([facility]) E78.0 Pure Hypercholesteremia Problem 03/23/2015 eCW2 hypercholesterolemia 12:00:00 AM ([facility]) I10 Hypertension Hypertension Problem 03/23/2015 eCW2 12:00:00 AM ([facility]) 250.00 Diabetes mellitus type Diabetes mellitus type Problem 1 05/23/2014 eCW2 2 2 12:00:00 AM ([facility]) E78.0 Pure Hypercholesteremia Problem 03/23/2015 eCW2 hypercholesterolemia 12:00:00 AM ([facility]) I10 Hypertension Hypertension Problem 03/23/2015 eCW2 12:00:00 AM ([facility]) 250.00 Diabetes mellitus type Diabetes mellitus type Problem 1 05/23/2014 eCW2 2 2 12:00:00 AM ([facility]) E78.0 Pure Hypercholesteremia Problem 03/23/2015 eCW3 hypercholesterolemia 12:00:00 AM ([facility]) 250.00 Diabetes mellitus type Diabetes mellitus type Problem 1 05/23/2014 eCW3 2 2 12:00:00 AM ([facility]) E78.0 Pure Hypercholesteremia Problem 03/23/2015 eCW3 hypercholesterolemia 12:00:00 AM ([facility]) 250.00 Diabetes mellitus type Diabetes mellitus type Problem 1 05/23/2014 eCW3 2 2 12:00:00 AM ([facility]) 793.2 Tomography - chest Abnormal CT of the Problem 5 eCW2 abnormal chest 12:00:00 AM ([facility]) 793.2 Tomography - chest Abnormal CT of the Problem 5 eCW2 abnormal chest 12:00:00 AM ([facility]) 793.2 Tomography - chest Abnormal CT of the Problem 5 eCW3 abnormal chest 12:00:00 AM ([facility]) 793.2 Tomography - chest Abnormal CT of the Problem 5 eCW3 abnormal chest 12:00:00 AM ([facility]) 305.1 Tobacco abuse Tobacco abuse Problem 09/14/2014 eCW2 12:00:00 AM ([facility]) 305.1 Tobacco abuse Tobacco abuse Problem 09/14/2014 eCW2 12:00:00 AM ([facility]) 305.1 Tobacco abuse Tobacco abuse Problem 09/14/2014 eCW3 12:00:00 AM ([facility]) 305.1 Tobacco abuse Tobacco abuse Problem 09/14/2014 eCW3 12:00:00 AM ([facility]) 719.45 Arthralgia of the Hip pain, right Problem 06/29/2014 eC W2 pelvic region and thigh 12:00:00 AM ([facility]) 719.45 Arthralgia of the Hip pain, right Problem 06/29/2014 eC W2 pelvic region and thigh 12:00:00 AM ([facility]) 719.45 Arthralgia of the Hip pain, right Problem 06/29/2014 eC W3 pelvic region and thigh 12:00:00 AM ([facility]) 719.45 Arthralgia of the Hip pain, right Problem 06/29/2014 eC W3 pelvic region and thigh 12:00:00 AM ([facility]) 715.90 Degenerative arthritis Degenerative arthritis Problem 0 06/24/2014 eCW2 12:00:00 AM ([facility]) V45.86 S/P bariatric surgery S/P bariatric surgery Problem eCW2 12:00:00 AM ([facility]) 715.90 Degenerative arthritis Degenerative arthritis Problem 0 06/24/2014 eCW2 12:00:00 AM ([facility]) V45.86 S/P bariatric surgery S/P bariatric surgery Problem eCW2 12:00:00 AM ([facility]) 715.90 Degenerative arthritis Degenerative arthritis Problem 0 06/24/2014 eCW3 12:00:00 AM ([facility]) V45.86 S/P bariatric surgery S/P bariatric surgery Problem eCW3 12:00:00 AM ([facility]) 715.90 Degenerative arthritis Degenerative arthritis Problem 0 06/24/2014 eCW3 12:00:00 AM ([facility]) V45.86 S/P bariatric surgery S/P bariatric surgery Problem eCW3 12:00:00 AM ([facility]) 719.41 Shoulder joint pain Shoulder pain, left Problem 014 eCW2 12:00:00 AM ([facility]) 719.41 Shoulder joint pain Shoulder pain, left Problem 014 eCW2 12:00:00 AM ([facility]) 719.41 Shoulder joint pain Shoulder pain, left Problem 014 eCW3 12:00:00 AM ([facility]) 719.41 Shoulder joint pain Shoulder pain, left Problem 014 eCW3 12:00:00 AM ([facility]) 240.9 Goiter Goiter NOS Problem 10/02/2013 eCW2 12:00:00 AM ([facility]) 240.9 Goiter Goiter NOS Problem 10/02/2013 eCW2 12:00:00 AM ([facility]) 240.9 Goiter Goiter NOS Problem 10/02/2013 eCW3 12:00:00 AM ([facility]) 240.9 Goiter Goiter NOS Problem 10/02/2013 eCW3 12:00:00 AM ([facility]) 278.01 Morbid obesity with BMI Morbid obesity with Problem eCW2 of 50.0-59.9, adult BMI of 50.0-59.9, 12:00:00 AM ([facility]) 278.01 Morbid obesity with BMI Morbid obesity with Problem eCW2 of 50.0-59.9, adult BMI of 50.0-59.9, 12:00:00 AM ([facility]) 278.01 Morbid obesity with BMI Morbid obesity with Problem eCW3 of 50.0-59.9, adult BMI of 50.0-59.9, 12:00:00 AM ([facility]) 278.01 Morbid obesity with BMI Morbid obesity with Problem eCW3 of 50.0-59.9, adult BMI of 50.0-59.9, 12:00:00 AM ([facility]) 780.57 Sleep apnea Sleep Apnea Problem eCW2 ([facility]) 571.8 Fatty liver Fatty Liver Problem eCW2 ([facility]) 311 Depressive disorder Depression Disorder Problem eCW2 NOS ([facility]) 530.11 Gastroesophageal reflux GERD Problem e CW2 disease ([facility]) 724.5 Low back pain Low Back Pain Problem eCW2 ([facility]) 289.9 Essential Thrombocytosis, Problem eCW2 thrombocytosis essential ([facility]) 715.90 Generalized Osteoarthritis Problem eCW2 osteoarthritis generalized ([facility]) 780.57 Sleep apnea Sleep Apnea Problem eCW2 ([facility]) 289.9 Essential Thrombocytosis, Problem eCW2 thrombocytosis essential ([facility]) 715.90 Generalized Osteoarthritis Problem eCW2 osteoarthritis generalized ([facility]) 724.5 Low back pain Low Back Pain Problem eCW2 ([facility]) 530.11 Gastroesophageal reflux GERD Problem e CW3 disease ([facility]) 311 Depressive disorder Depression Disorder Problem eCW3 NOS ([facility]) 724.5 Low back pain Low Back Pain Problem eCW3 ([facility]) 289.9 Essential Thrombocytosis, Problem eCW3 thrombocytosis essential ([facility]) 715.90 Generalized Osteoarthritis Problem eCW3 osteoarthritis generalized ([facility]) 780.57 Sleep apnea Sleep Apnea Problem eCW3 ([facility]) 715.90 Generalized Osteoarthritis Problem eCW3 osteoarthritis generalized ([facility]) 780.57 Sleep apnea Sleep Apnea Problem eCW3 ([facility]) 530.11 Gastroesophageal reflux GERD Problem e CW3 disease ([facility]) 311 Depressive disorder Depression Disorder Problem eCW3 NOS ([facility]) 724.5 Low back pain Low Back Pain Problem eCW3 ([facility]) 289.9 Essential Thrombocytosis, Problem eCW3 thrombocytosis essential ([facility]) 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 020 [facility] limb affecting right LIMB AFFECTING RIGHT 12:54 :00 PM [facility] dominant side DOMINANT SIDE [facility] M25.371 Other instability, OTHER INSTABILITY, Diagnosis 0 [facility] right ankle RIGHT ANKLE 12:54:00 PM [facility] F25.0 Schizoaffective SCHIZOAFFECTIVE Diagnosis 05/08/2019 Lety t disorder, bipolar type DISORDER, BIPOLAR TYPE 0 7:54:00 AM [facility] E11.9 Type 2 diabetes TYPE 2 DIABETES Diagnosis 03/14/2019 Lety kurt mellitus without MELLITUS WITHOUT 02:47:00 PM J osephs complications COMPLICATIONS [facility] K21.9 Gastro-esophageal GASTRO-ESOPHAGEAL Diagnosis 03/14/2019 reflux disease without REFLUX DISEASE WITHOUT 0 2:47:00 PM [facility] esophagitis ESOPHAGITIS [facility] J44.9 Chronic obstructive CHRONIC OBSTRUCTIVE Diagnosis pulmonary disease, PULMONARY DISEASE, 02:47:00 PM [facility] unspecified UNSPECIFIED [facility] J45.909 Unspecified asthma, UNSPECIFIED ASTHMA, Diagnosis uncomplicated UNCOMPLICATED 02:47:00 PM [facility] Y92.[address] U[address] OR Diagnosis 03/14 not applicable NOT APPLICABLE 02:47:00 PM Tino hs [facility] K31.84 Gastroparesis GASTROPARESIS Diagnosis 03/14/2019 02:47:00 PM [facility] F60.0 Paranoid personality PARANOID PERSONALITY Diagnosis 03/14 disorder DISORDER 02:47:00 PM [facility] T50.901 Poisoning by POISONING BY UNSP Diagnosis 03/14/2019 A unspecified drugs, DRUG/MEDS/BIOL SUBST, 02:47: 00 PM [facility] medicaments and ACCIDENTAL, INIT [facility] Med ical biological substances, Ce nter accidental (unintentional), initial encounter F17.210 Nicotine dependence, NICOTINE DEPENDENCE, Diagnosis 02/12 cigarettes, CIGARETTES, 02:30:00 AM [facility] uncomplicated UNCOMPLICATED [facility] E66.01 Morbid (severe) obesity MORBID (SEVERE) Diagnosis due to excess calories OBESITY DUE TO EXCESS 02 :30:00 AM [facility] CALORIES [facility] M48.061 Spinal stenosis, lumbar SPINAL STENOSIS, Diagnosis 2018 region without LUMBAR REGION WITHOUT 02:30:00 A M [facility] neurogenic claudication NEUROGENIC WISAM [facility] F31.9 Bipolar disorder, BIPOLAR DISORDER, Diagnosis 02/12/2019 unspecified UNSPECIFIED 02:30:00 AM [facility] G47.33 Obstructive sleep apnea OBSTRUCTIVE SLEEP Diagnosis 02/12 (adult) (pediatric) APNEA (ADULT) 02:30:00 AM [facility] (PEDIATRIC) [facility] F20.9 Schizophrenia, SCHIZOPHRENIA, Diagnosis 02/12/2019 [facility] unspecified UNSPECIFIED 02:30:00 AM [facility] Z68.44 Body mass index (BMI) BODY MASS INDEX (BMI) Diagnosis 01/2019 [facility] 60.0-69.9, adult 60.0-69.9, ADULT 02:30:00 AM [facility] E11.43 Type 2 diabetes TYPE 2 DIABETES W Diagnosis 02/12/2019 Sa int mellitus with diabetic DIABETIC AUTONOMIC 02:30 :00 AM [facility] autonomic (POLY)NEUROPATHY [facility] (poly)neuropathy Center G82.20 Paraplegia, unspecified PARAPLEGIA, Diagnosis 02/12/2019 [facility] UNSPECIFIED 02:30:00 AM [facility] 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 02/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 01:04:0 0 PM [facility] 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, PARALYTIC SYNDROME, Diagnosis 019 [facility] unspecified UNSPECIFIED 01:04:00 PM [facility] Diagnosis NEXTGEN ([facility]) Diagnosis [facility] ([facility]) Surgeries/Procedures Procedure Description Date Indications Data Source(s) Psychotherapy (30 Mins) 12/17/2019 NEXT GEN ([facility] W/ E&M 12:00:00 AM [facility]) 12/17/2019 12:00:00 AM EDT OFFICE/OUTPATIENT 12/17/2019 NEXTGEN (S aint VISIT, EST 12:00:00 AM [facility] [place]) 12/17/2019 12:00:00 AM EDT OFFICE/OUTPATIENT 11/20/2019 NEXTGEN (S aint VISIT, EST 12:00:00 AM [facility]) 11/20/2019 12:00:00 AM EDT OFFICE/OUTPATIENT 07/31/2019 NEXTGEN (S aint VISIT, EST 12:00:00 AM [facility]) 07/31/2019 12:00:00 AM EDT Psychotherapy (30 Mins) 06/04/2019 NEXT GEN ([facility] W/ E&M 12:00:00 AM [facility] [place]) 06/04/2019 12:00:00 AM EST OFFICE/OUTPATIENT 06/04/2019 NEXTGEN (S aint VISIT, EST 12:00:00 AM [facility]) 06/04/2019 12:00:00 AM EST Psychotherapy (45 Mins) 03/24/2019 NEXT GEN ([facility] W/ E&M 12:00:00 AM [facility] [place]) 03/24/2019 12:00:00 AM EST OFFICE/OUTPATIENT 03/24/2019 NEXTGEN (S aint VISIT, EST 12:00:00 AM [facility] [place]) 03/24/2019 12:00:00 AM EST OFFICE/OUTPATIENT 01/20/2019 NEXTGEN (S aint VISIT, EST 12:00:00 AM [facility] EDT - [place]) 01/20/2019 12:00:00 AM EDT Psychotherapy (30 Mins) 12/03/2018 NEXT GEN ([facility] W/ E&M [facility] [place] 12/03/2018 12:00:00 AM EDT OFFICE/OUTPATIENT 12/03/2018 NEXTGEN (S aint VISIT, EST 12:00:00 [facility] [place] 12/03/2018 12:00:00 AM EDT EKG W INTERPRETATION 10/24/2018 eCW3 ([facility] 12:00:00 AM [facility]) Psychotherapy (30 Mins) 10/23/2018 NEXT GEN ([facility] W/ E&M 12:00:00 AM [facility] [place] 10/23/2018 12:00:00 AM EDT OFFICE/OUTPATIENT 10/23/2018 NEXTGEN (S aint VISIT, EST 12:00:00 AM [facility] EDT - [place]) 10/23/2018 12:00:00 AM EDT Psychotherapy (30 Mins) 08/16/2018 NEXT GEN ([facility] W/ E&M 12:00:00 AM [facility] EDT - [place]) 08/16/2018 12:00:00 AM EDT OFFICE/OUTPATIENT 08/16/2018 NEXTGEN (S aint VISIT, EST [facility] 08/16/2018 12:00:00 AM EDT NEBULIZATION TX. 08/01/2018 eCW3 ([facility] 12:00:00 AM [facility]) Psychotherapy (30 Mins) 06/21/2018 NEXT GEN ([facility] W/ E&M 12:00:00 AM [facility]) 06/21/2018 12:00:00 AM EST OFFICE/OUTPATIENT 06/21/2018 NEXTGEN (S aint VISIT, EST 12:00:00 AM [facility]) 06/21/2018 12:00:00 AM EST Psychotherapy (30 Mins) 04/19/2018 NEXT GEN ([facility] W/ E&M 12:00:00 AM [facility]) 04/19/2018 12:00:00 AM EST OFFICE/OUTPATIENT 04/19/2018 NEXTGEN (S aint VISIT, EST 12:00:00 AM [facility]) 04/19/2018 12:00:00 AM EST O-CM2 CASE MANAGEMENT 02/06/2018 eCW2 ( [facility] 12:00:00 [facility]) No Known procedures No Known procedures e CW2 ([facility]) No Known procedures No Known procedures e CW2 ([facility]) No Known procedures No Known procedures e CW2 ([facility]) Results ID Date Data Source [id number] 12/08/2019 12:00:00 AM EDT [facility] Name Value Range Interpretation Code Description Data Sully rce(s) Supporting Document(s ) 2019-nCoV [facility] RNA XXX PATRICK+probe- Imp This lab was ordered by [facility] and reported by [employer] ID Date Data Source LIPID.[id number] 03/15/2019 06:00:00 AM EST [facility] Name Value Range Interpretation Description Data Sup porting Code Source(s) Document(s ) Cholesterol -<200 <content [facility] [Mass/volume] in styleCode="Fred Patria Serum or Plasma d">Cholesterol Medical </content>155 Center MG/DL<content styleCode="Abi lics"> (-<200 MG/DL)</conten t> Triglyceride < 150 <content [facility] [Mass/volume] in styleCode="Fred Patria Serum or Plasma d">Triglycerid [facility] </content>58 MG/DL<content styleCode="Abi lics"> (< 150 MG/DL)</conten t> UNK > 60 Below low normal <content Saint styleCode="Fred Patria d">HDL- Medical Cholesterol Center </content>54 MG/DL L<content styleCode="Abi lics"> (> 60 MG/DL)</conten t> UNK < 100 <content Saint styleCode="Fred Patria d">LDL-Cholest Medical chanel Center </content>89 MG/DL<content styleCode="Abi lics"> (< 100 MG/DL)</conten t> ID Date Data Source HematologyRou.[id number] 03/15/2019 06:00:00 AM DEBRA Whitt [facility] 0500 Name Value Range Interpretation Description Data Sup porting Code Source(s) Document(s ) Erythrocytes 4.0-5.1 <content [facility] [#/volume] in styleCode="Bold Patria Blood by ">Red Blood Medical Automated count Cell Count Center </content>4.10 MCUMM<content styleCode="Ital ics"> (4.0-5.1 MCUMM)</content > Leukocytes 4.4-11.0 <content [facility] [#/volume] in styleCode="Bold Patria Blood by ">White Blood Medical Automated count Cell Count Center </content>6.17 KCUMM<content styleCode="Ital ics"> (4.4-11.0 KCUMM)</content > Erythrocyte mean 80.0-100 <content [facility] corpuscular .0 styleCode="Bold Patria volume [Entitic ">Mean Medical volume] by Corpuscular Center Automated count Volume </content>98.8 FL<content styleCode="Ital ics"> (80.0-100.0 FL)</content> Erythrocyte mean 26.0-34. <content [facility] corpuscular 0 styleCode="Bold Patria hemoglobin ">Mean Medical [Entitic mass] Corposcular Center by Automated Hemoglobin count </content>32.4 PG<content styleCode="Ital ics"> (26.0-34.0 PG)</content> Hematocrit 36.0-46. <content Saint [Volume 0 styleCode="Bold Patria Fraction] of ">Hematocrit Medical Blood by </content>40.5 Center Automated count %<content styleCode="Ital ics"> (36.0-46.0 %)</content> Hemoglobin 12.3-16. <content [facility] [Mass/volume] in 0 styleCode="Bold Patria Blood ">Hemoglobin Medical </content>13.3 Center G/DL<content styleCode="Ital ics"> (12.3-16.0 G/DL)</content> Erythrocyte 11.5-14. Above high <content [facility] distribution 5 normal styleCode="Bold Patria width [Ratio] by ">Red Cell Medical Automated count Distribution Center Width </content>14.6 % H<content styleCode="Ital ics"> (11.5-14.5 %)</content> Platelets 130-400 <content [facility] [#/volume] in styleCode="Bold Patria Blood by ">Platelet Medical Automated count Count Center </content>300 KCUMM<content styleCode="Ital ics"> (130-400 KCUMM)</content > Erythrocyte mean 32.0-37. <content [facility] corpuscular 0 styleCode="Bold Patria hemoglobin ">Mean Corpus. Medical concentration Hgb Center [Mass/volume] by Concentration Automated count (MCHC) </content>32.8 G/DL<content styleCode="Ital ics"> (32.0-37.0 G/DL)</content> UNK 0 <content Saint styleCode="Bold Patria ">Nucleated Red Medical Blood Cell Center </content>0.0 /100<content styleCode="Ital ics"> (0 /100)</content> Platelet mean 8.0-11.0 <content [facility] volume [Entitic styleCode="Bold Patria volume] in Blood ">Mean Platelet Medical by Automated Volume Center count </content>10.2 FL<content styleCode="Ital ics"> (8.0-11.0 FL)</content> UNK 0.0 <content Saint styleCode="Bold Patria ">Nucleated Red Medical Blood Cell Center Count </content>0.00 KCUMM<content styleCode="Ital ics"> (0.0 KCUMM)</content > ID Date Data Source GFR(Creatinine).[id number] 03/15/2019 06:00:00 AM DEBRA [facility] 0-0500 Name Value Range Interpretation Code Description Data Sully rce(s) Supporting Document(s ) UNK > 60 <content [facility] styleCode="Bold"> Medical Cent er EGFR </content>164 GFR<content styleCode="Italic s"> (> 60 GFR)</content> ID Date Data Source Coagulation 03/15/2019 06:00:00 AM [facility] ical Center Rout.[id number] EST Name Value Range Interpretation Description Data Sup porting Code Source(s) Document(s ) UNK 9.0-13.0 Above high normal <content Saint styleCode="Bold" Patria >Protime Medical </content>13.2 Center SEC H<content styleCode="Itali cs"> (9.0-13.0 SEC)</content> INR in 0.80-1.2 <content [facility] Platelet poor 0 styleCode="Bold" Patria plasma by >INR Medical Coagulation </content>1.19 Center assay #<content styleCode="Itali cs"> (0.80-1.20 #)</content> aPTT in 25.1-36. <content [facility] Platelet poor 5 styleCode="Bold" Patria plasma by >Partial Medical Coagulation Thromboplastin Center assay Time </content>32.2 SEC<content styleCode="Itali cs"> (25.1-36.5 SEC)</content> ID Date Data Source CHMROUTINECCDA.[id number] 03/15/2019 06:00:00 AM EST [facility] -0500 Name Value Range Interpretation Description Data Sup porting Code Source(s) Document(s ) Magnesium 1.6-2.3 Below low normal <content [facility] [Mass/volume] styleCode="Fred Patria in Serum or d">Magnesium Medical Plasma </content>1.5 Center MG/DL L<content styleCode="Abi lics"> (1.6-2.3 MG/DL)</conten t> UNK 4.2-5.8 Above high normal <content [facility] styleCode="Fred Patria d">Hemoglobin Medical A1C Center </content>6.1 % H<content styleCode="Abi lics"> (4.2-5.8 %)</content> ID Date Data Source [id number] 03/15/2019 06:00:00 AM EST [facility] Name Value Range Interpretation Description Data Sup porting Code Source(s) Document(s ) Chloride 98-107 <content [facility] [Moles/volume] styleCode="Fred Patria in Serum or d">Chloride Medical Plasma </content>106 Center MEQ/L<content styleCode="Abi lics"> (98-107 MEQ/L)</conten t> Potassium 3.5-5.3 <content [facility] [Moles/volume] styleCode="Fred Patria in Serum or d">Potassium Medical Plasma </content>4.1 Center MEQ/L<content styleCode="Abi lics"> (3.5-5.3 MEQ/L)</conten t> Carbon 22-30 Above high normal <content [facility] dioxide, total styleCode="Fred Patria [Moles/volume] d">Carbon Medical in Serum or Dioxide Center Plasma </content>31 MEQ/L H<content styleCode="Abi lics"> (22-30 MEQ/L)</conten t> Sodium 137-145 <content [facility] [Moles/volume] styleCode="Fred Patria in Serum or d">Sodium Medical Plasma </content>141 Center MEQ/L<content styleCode="Abi lics"> (137-145 MEQ/L)</conten t> Calcium 8.4-10.2 <content [facility] [Mass/volume] styleCode="Fred Patria in Serum or d">Calcium Medical Plasma </content>9.8 Center MG/DL<content styleCode="Abi lics"> (8.4-10.2 MG/DL)</conten t> UNK 7-17 <content [facility] styleCode="Fred Patria d">BUN Medical </content>8 Center MG/DL<content styleCode="Abi lics"> (7-17 MG/DL)</conten t> Glucose 74-106 <content [facility] [Mass/volume] styleCode="Fred Patria in Serum or d">Glucose Medical Plasma </content>96 Center MG/DL<content styleCode="Abi lics"> (74-106 MG/DL)</conten t> Creatinine 0.5-1.3 <content [facility] [Mass/volume] styleCode="Fred Patria in Serum or d">Creatinine Medical Plasma </content>0.5 Center MG/DL<content styleCode="Abi lics"> (0.5-1.3 MG/DL)</conten t> UNK > 60 <content [facility] styleCode="Fred Patria d">EGFR Medical </content>164 Center GFR<content styleCode="Abi lics"> (> 60 GFR)</content> ID Date Data Source CardiacMarkers.[id number] 03/14/2019 06:29:00 PM DEBRA ramos [facility] -0500 Name Value Range Interpretation Description Data Sup porting Code Source(s) Document(s ) Troponin < 0.034 <content [facility] I.cardiac styleCode="Bold Patria [Mass/volume ">Troponin I Medical ] in Serum </content>< Center or Plasma 0.012 NG/ML<content styleCode="Ital ics"> (< 0.034 NG/ML)</content > ID Date Data Source [facility].[id number] 03/14/2019 05:09:00 PM EST [facility] Name Value Range Interpretation Description Data Sup porting Code Source(s) Document(s ) Potassium 3.5-5.3 <content [facility] [Moles/volume styleCode="Fred Patria ] in Serum or d">Potassium Medical Plasma </content>3.9 Center MEQ/L<content styleCode="Abi lics"> (3.5-5.3 MEQ/L)</conten t> ID Date Data Source Urinalysis.[id number] 03/14/2019 04:37:00 PM EST Jose Eduardo [facility] 0 Name Value Range Interpretation Description Data Sup porting Code Source(s) Document(s ) Glucose NEGATIVE <content Saint [Mass/volume] styleCode="Fred España in Urine by d">Urine Medical Test strip Glucose Center </content>NEGA TIVE MG/DL<content styleCode="Abi lics"> (NEGATIVE MG/DL)</conten t> Color of Urine YELLOW <content Saint styleCode="Fred Prabhakars d">Color, Medical Urine Center </content>YELL OW <content styleCode="Abi lics"> (YELLOW )</content> UNK CLEAR <content Saint styleCode="Fred Patria d">Urine Medical Clarity Center </content>CELINE R <content styleCode="Abi lics"> (CLEAR )</content> Specific 1.015-1.02 Below low normal <content Saint gravity of 5 styleCode="Fred España Urine by Test d">Urine Medical strip Specific Center [place] </content><= 1.005 L<content styleCode="Abi lics"> (1.015-1.025 )</content> Hemoglobin NEGATIVE <content Saint [Presence] in styleCode="Fred España Urine by Test d">Urine Blood Medical strip </content>NEGA Center TIVE <content styleCode="Abi lics"> (NEGATIVE )</content> UNK NEGATIVE <content Saint styleCode="Fred Prabhakars d">Urine Medical Bilirubin Center </content>NEGA TIVE <content styleCode="Abi lics"> (NEGATIVE )</content> Ketones NEGATIVE <content Saint [Mass/volume] styleCode="Fred España in Urine by d">Urine Medical Test strip Ketone Center </content>NEGA TIVE MG/DL<content styleCode="Abi lics"> (NEGATIVE MG/DL)</conten t> pH of Urine by 4.5-8.0 <content Saint Test strip styleCode="Fred Prabhakars d">Urine pH Medical </content>7.0 Center <content styleCode="Abi lics"> (4.5-8.0 )</content> Urobilinogen 0.2-1.0 <content Saint [Units/volume] styleCode="Fred Prabhakars in Urine by d">Urine Medical Test strip Urobilinogen Center </content>0.2 MG/DL<content styleCode="Abi lics"> (0.2-1.0 MG/DL)</conten t> Protein NEGATIVE <content Saint [Mass/volume] styleCode="Fred Pat[place] in Urine by d">Urine Medical Test strip Protein Center </content>NEGA TIVE MG/DL<content styleCode="Abi lics"> (NEGATIVE MG/DL)</conten t> Leukocyte NEGATIVE <content Saint esterase styleCode="Fred Prabhakars [Presence] in d">Urine Medical Urine by Test Leukocyte Center strip </content>NEGA TIVE <content styleCode="Abi lics"> (NEGATIVE )</content> Nitrite NEGATIVE <content Saint [Presence] in styleCode="Fred Prabhakars Urine by Test d">Urine Medical strip Nitrite Center </content>NEGA TIVE <content styleCode="Abi lics"> (NEGATIVE )</content> ID Date Data Source CHMROUTINECCDA.[id number] 03/14/2019 04:37:00 PM [facility] Name Value Range Interpretation Description Data Sup porting Code Source(s) Document(s ) Cannabinoids <content Saint [Presence] in styleCode="Fred España Urine by Screen d">Cannabinoid Medical method >50 ng/mL s Center </content>PRES UMPTIVE POSITIVE NG/ML (Reference Range: not available)<br/ > ID Date Data Source Liver 03/14/2019 03:44:[address] [facility] Profile.[id number] Name Value Range Interpretation Description Data Sup porting Code Source(s) Document(s ) Alanine 7-30 <content Saint aminotransferase styleCode="Bold"> Tino hs [Enzymatic Alanine Medical activity/volume] Aminotransferase Center in Serum or Plasma (ALT) </content>19 IU/L<content styleCode="Italic s"> (7-30 IU/L)</content> Alkaline 38-126 <content Saint phosphatase styleCode="Bold"> [place] [Enzymatic Alkaline Medical activity/volume] Phosphatase (ALP) Cente r in Serum or Plasma </content>89 IU/L<content styleCode="Italic s"> (38-126 IU/L)</content> Bilirubin.total 0.2-1.3 <content Saint [Mass/volume] in styleCode="Bold"> Tino hs Serum or Plasma Bilirubin Total Medical </content>0.7 Center MG/DL<content styleCode="Italic s"> (0.2-1.3 MG/DL)</content> Aspartate 14-36 <content Saint aminotransferase styleCode="Bold"> Tino hs [Enzymatic Aspartate Medical activity/volume] Aminotransferase Center in Serum or Plasma (AST) </content>29 IU/L<content styleCode="Italic s"> (14-36 IU/L)</content> Albumin 3.5-5.0 <content Saint [Mass/volume] in styleCode="Bold"> Tino hs Serum or Plasma Albumin Medical </content>4.3 Center G/DL<content styleCode="Italic s"> (3.5-5.0 G/DL)</content> UNK 0.0-0.3 <content Saint styleCode="Bold"> [place] Bilirubin, Direct Medical </content>< 0.2 Center MG/DL<content styleCode="Italic s"> (0.0-0.3 MG/DL)</content> ID Date Data Source HematologyRou.[id number] 03/14/2019 03:44:00 PM EST Jose Eduardo nt [facility] 0500 Name Value Range Interpretation Description Data Sup porting Code Source(s) Document(s ) Leukocytes 4.4-11.0 <content Saint [#/volume] in styleCode="Bold [place] Blood by ">White Blood Medical Automated count Cell Count Center </content>6.34 KCUMM<content styleCode="Ital ics"> (4.4-11.0 KCUMM)</content > Erythrocytes 4.0-5.1 <content Saint [#/volume] in styleCode="Bold [place] Blood by ">Red Blood Medical Automated count Cell Count Center </content>4.35 MCUMM<content styleCode="Ital ics"> (4.0-5.1 MCUMM)</content > Hemoglobin 12.3-16. <content Saint [Mass/volume] in 0 styleCode="Bold Pat[place] Blood ">Hemoglobin Medical </content>14.0 Center G/DL<content styleCode="Ital ics"> (12.3-16.0 G/DL)</content> Hematocrit 36.0-46. <content Saint [Volume 0 styleCode="Bold Patria Fraction] of ">Hematocrit Medical Blood by </content>43.0 Center Automated count %<content styleCode="Ital ics"> (36.0-46.0 %)</content> Erythrocyte mean 80.0-100 <content Saint corpuscular .0 styleCode="Bold Patria volume [Entitic ">Mean Medical volume] by Corpuscular Center Automated count Volume </content>98.9 FL<content styleCode="Ital ics"> (80.0-100.0 FL)</content> Erythrocyte mean 32.0-37. <content Saint corpuscular 0 styleCode="Bold Patria hemoglobin ">Mean Corpus. Medical concentration Hgb Center [Mass/volume] by Concentration Automated count (MCHC) </content>32.6 G/DL<content styleCode="Ital ics"> (32.0-37.0 G/DL)</content> Erythrocyte mean 26.0-34. <content Saint corpuscular 0 styleCode="Bold Patria hemoglobin ">Mean Medical [Entitic mass] Corposcular Center by Automated Hemoglobin count </content>32.2 PG<content styleCode="Ital ics"> (26.0-34.0 PG)</content> Erythrocyte 11.5-14. <content Saint distribution 5 styleCode="Bold Patria width [Ratio] by ">Red Cell Medical Automated count Distribution Center Width </content>14.4 %<content styleCode="Ital ics"> (11.5-14.5 %)</content> Platelets 130-400 <content Saint [#/volume] in styleCode="Bold [place] Blood by ">Platelet Medical Automated count Count Center </content>326 KCUMM<content styleCode="Ital ics"> (130-400 KCUMM)</content > Platelet mean 8.0-11.0 <content Saint volume [Entitic styleCode="Bold Patria volume] in Blood ">Mean Platelet Medical by Automated Volume Center count </content>10.1 FL<content styleCode="Ital ics"> (8.0-11.0 FL)</content> UNK 0 <content Saint styleCode="Bold Patria ">Nucleated Red Medical Blood Cell Center </content>0.0 /100<content styleCode="Ital ics"> (0 /100)</content> UNK 0.0 <content Saint styleCode="Bold Patria ">Nucleated Red Medical Blood Cell Center Count </content>0.00 KCUMM<content styleCode="Ital ics"> (0.0 KCUMM)</content > ID Date Data Source GFR(Creatinine).[id number] 03/14/2019 03:44:00 PM [facility] 0-0500 Name Value Range Interpretation Code Description Data Sully rce(s) Supporting Document(s ) UNK > 60 <content [facility] styleCode="Bold"> Medical Cent er EGFR </content>175 GFR<content styleCode="Italic s"> (> 60 GFR)</content> ID Date Data Source [facility].[id number] 03/14/2019 03:44:00 PM EST [facility] Name Value Range Interpretation Description Data Sup porting Code Source(s) Document(s ) Sodium 137-145 <content Saint [Moles/volume] in styleCode="Bold"> Faheem phs Serum or Plasma Sodium Medical </content>142 Center MEQ/L<content styleCode="Italic s"> (137-145 MEQ/L)</content> Chloride 98-107 <content Saint [Moles/volume] in styleCode="Bold"> Faheem phs Serum or Plasma Chloride Medical </content>106 Center MEQ/L<content styleCode="Italic s"> (98-107 MEQ/L)</content> UNK 7-17 <content Saint styleCode="Bold"> [place] BUN </content>9 Medical MG/DL<content Center styleCode="Italic s"> (7-17 MG/DL)</content> Potassium <content Saint [Moles/volume] in styleCode="Bold"> Faheem phs Serum or Plasma Potassium Medical </content>Test Center not performed. MEQ/L (Reference Range: not available)
Carbon dioxide, 22-30 <content Saint total styleCode="Bold"> [place] [Moles/volume] in Carbon Dioxide Medical Serum or Plasma </content>29 Center MEQ/L<content styleCode="Italic s"> (22-30 MEQ/L)</content> Calcium 8.4-10. <content Saint [Mass/volume] in 2 styleCode="Bold"> Tino hs Serum or Plasma Calcium Medical </content>10.1 Center MG/DL<content styleCode="Italic s"> (8.4-10.2 MG/DL)</content> Glucose 74-106 Above high <content Saint [Mass/volume] in normal styleCode="Bold"> Tino hs Serum or Plasma Glucose Medical </content>113 Center MG/DL H<content styleCode="Italic s"> (74-106 MG/DL)</content> UNK > 60 <content Saint styleCode="Bold"> [place] EGFR Medical </content>175 Center GFR<content styleCode="Italic s"> (> 60 GFR)</content> Creatinine 0.5-1.3 Below low <content Saint [Mass/volume] in normal styleCode="Bold"> Tino hs Serum or Plasma Creatinine Medical </content>0.4 Center MG/DL L<content styleCode="Italic s"> (0.5-1.3 MG/DL)</content> Alanine 7-30 <content Saint aminotransferase styleCode="Bold"> Tino hs [Enzymatic Alanine Medical activity/volume] Aminotransferase Center in Serum or Plasma (ALT) </content>19 IU/L<content styleCode="Italic s"> (7-30 IU/L)</content> Bilirubin.total 0.2-1.3 <content Saint [Mass/volume] in styleCode="Bold"> Tino hs Serum or Plasma Bilirubin Total Medical </content>0.7 Center MG/DL<content styleCode="Italic s"> (0.2-1.3 MG/DL)</content> Aspartate 14-36 <content Saint aminotransferase styleCode="Bold"> Tino hs [Enzymatic Aspartate Medical activity/volume] Aminotransferase Center in Serum or Plasma (AST) </content>29 IU/L<content styleCode="Italic s"> (14-36 IU/L)</content> Alkaline 38-126 <content Saint phosphatase styleCode="Bold"> [place] [Enzymatic Alkaline Medical activity/volume] Phosphatase (ALP) Cente r in Serum or Plasma </content>89 IU/L<content styleCode="Italic s"> (38-126 IU/L)</content> Albumin 3.5-5.0 <content Saint [Mass/volume] in styleCode="Bold"> Tino hs Serum or Plasma Albumin Medical </content>4.3 Center G/DL<content styleCode="Italic s"> (3.5-5.0 G/DL)</content> ID Date Data Source LIPID.[id number] 02/11/2019 03:25:00 PM EDT [facility] Name Value Range Interpretation Description Data Sup porting Code Source(s) Document(s ) Triglyceride < 150 <content Saint [Mass/volume] in styleCode="Fred Patria Serum or Plasma d">Triglycerid [facility] es Center </content>75 MG/DL<content styleCode="Abi lics"> (< 150 MG/DL)</conten t> UNK > 60 Below low normal <content Saint styleCode="Fred Patria d">HDL- Medical Cholesterol Center </content>58 MG/DL L<content styleCode="Abi lics"> (> 60 MG/DL)</conten t> UNK < 100 <content Saint styleCode="Fred Patria d">LDL-Cholest Medical chanel Center </content>84 MG/DL<content styleCode="Abi lics"> (< 100 MG/DL)</conten t> Cholesterol -<200 <content Saint [Mass/volume] in styleCode="Fred [facility] Serum or Plasma d">Cholesterol Medical </content>157 Center MG/DL<content styleCode="Abi lics"> (-<200 MG/DL)</conten t> ID Date Data Source HematologyRou.[id number] 02/11/2019 03:25:00 PM EDT [facility] 0400 Name Value Range Interpretation Description Data Sup porting Code Source(s) Document(s ) Leukocytes 4.4-11.0 <content Saint [#/volume] in styleCode="Bold Patria Blood by ">White Blood Medical Automated count Cell Count Center </content>5.27 KCUMM<content styleCode="Ital ics"> (4.4-11.0 KCUMM)</content > Erythrocytes 4.0-5.1 <content Saint [#/volume] in styleCode="Bold Pat[place] Blood by ">Red Blood Medical Automated count Cell Count Center </content>4.31 MCUMM<content styleCode="Ital ics"> (4.0-5.1 MCUMM)</content > Hematocrit 36.0-46. <content Saint [Volume 0 styleCode="Bold Patria Fraction] of ">Hematocrit Medical Blood by </content>43.4 Center Automated count %<content styleCode="Ital ics"> (36.0-46.0 %)</content> Erythrocyte mean 26.0-34. <content Saint corpuscular 0 styleCode="Bold Patria hemoglobin ">Mean Medical [Entitic mass] Corposcular Center by Automated Hemoglobin count </content>32.0 PG<content styleCode="Ital ics"> (26.0-34.0 PG)</content> Erythrocyte mean 80.0-100 <content Saint corpuscular .0 styleCode="Bold Patria volume [Entitic ">Mean Medical volume] by Corpuscular Center Automated count Volume </content>100.7 FL<content styleCode="Ital ics"> (80.0-100.0 FL)</content> Hemoglobin 12.3-16. <content Saint [Mass/volume] in 0 styleCode="Bold Patria Blood ">Hemoglobin Medical </content>13.8 Center G/DL<content styleCode="Ital ics"> (12.3-16.0 G/DL)</content> Erythrocyte 11.5-14. Above high <content Saint distribution 5 normal styleCode="Bold Patria width [Ratio] by ">Red Cell Medical Automated count Distribution Center Width </content>15.9 % H<content styleCode="Ital ics"> (11.5-14.5 %)</content> Erythrocyte mean 32.0-37. Below low normal <content Saint corpuscular 0 styleCode="Bold Patria hemoglobin ">Mean Corpus. Medical concentration Hgb Center [Mass/volume] by Concentration Automated count (MCHC) </content>31.8 G/DL L<content styleCode="Ital ics"> (32.0-37.0 G/DL)</content> Platelets 130-400 <content Saint [#/volume] in styleCode="Bold [place] Blood by ">Platelet Medical Automated count Count Center </content>324 KCUMM<content styleCode="Ital ics"> (130-400 KCUMM)</content > Platelet mean 8.0-11.0 <content Saint volume [Entitic styleCode="Bold Patria volume] in Blood ">Mean Platelet Medical by Automated Volume Center count </content>9.9 FL<content styleCode="Ital ics"> (8.0-11.0 FL)</content> UNK 0.0 <content Saint styleCode="Bold Pat[place] ">Nucleated Red Medical Blood Cell Center Count </content>0.00 KCUMM<content styleCode="Ital ics"> (0.0 KCUMM)</content > UNK 0 <content Saint styleCode="Bold Patria ">Nucleated Red Medical Blood Cell Center </content>0.0 /100<content styleCode="Ital ics"> (0 /100)</content> ID Date Data Source GFR(Creatinine).[id number] 02/11/2019 03:25:00 PM EDT [facility] 0-0400 Name Value Range Interpretation Code Description Data Sully rce(s) Supporting Document(s ) UNK > 60 <content [facility] styleCode="Bold"> Medical Cent er EGFR </content>164 GFR<content styleCode="Italic s"> (> 60 GFR)</content> ID Date Data Source Coagulation 02/11/2019 03:25:00 PM [facility] ical Center Rout.[id number] EDT Name Value Range Interpretation Description Data Sup porting Code Source(s) Document(s ) UNK 9.0-13.0 <content Saint styleCode="Bold" [place] >Protime Medical </content>12.2 Center SEC<content styleCode="Itali cs"> (9.0-13.0 SEC)</content> aPTT in 25.1-36. <content Saint Platelet poor 5 styleCode="Bold" [facility] plasma by >Partial Medical Coagulation Thromboplastin Center assay Time </content>35.5 SEC<content styleCode="Itali cs"> (25.1-36.5 SEC)</content> INR in 0.80-1.2 <content Saint Platelet poor 0 styleCode="Bold" [facility] plasma by >INR Medical Coagulation </content>1.10 Center assay #<content styleCode="Itali cs"> (0.80-1.20 #)</content> ID Date Data Source MROUTINECCDA.[id number] 02/11/2019 03:25:00 PM EDT [facility] -0400 Name Value Range Interpretation Description Data Sup porting Code Source(s) Document(s ) Natriuretic < 125 Above high normal <content Saint peptide.B styleCode="Fred Patria prohormone d">NT Pro BNP Medical N-Terminal </content>209 Center [Mass/volume] PG/ML in Serum or H<content Plasma styleCode="Abi lics"> (< 125 PG/ML)</conten t> ID Date Data Source CardiacMarkers.[id number] 02/11/2019 03:25:00 PM EDT [facility] -0400 Name Value Range Interpretation Description Data Sup porting Code Source(s) Document(s ) Troponin < 0.034 <content Saint I.cardiac styleCode="Bold Patria [Mass/volume ">Troponin I Medical ] in Serum </content>< Center or Plasma 0.012 NG/ML<content styleCode="Ital ics"> (< 0.034 NG/ML)</content > ID Date Data Source [facility].[id number] 02/11/2019 03:25:00 PM EDT [facility] Name Value Range Interpretation Description Data Sup porting Code Source(s) Document(s ) Sodium 137-145 <content Saint [Moles/volume] styleCode="Fred Patria in Serum or d">Sodium Medical Plasma </content>142 Center MEQ/L<content styleCode="Abi lics"> (137-145 MEQ/L)</conten t> Potassium 3.5-5.3 <content Saint [Moles/volume] styleCode="Fred Patria in Serum or d">Potassium Medical Plasma </content>4.3 Center MEQ/L<content styleCode="Abi lics"> (3.5-5.3 MEQ/L)</conten t> Carbon 22-30 Above high normal <content Saint dioxide, total styleCode="Fred Patria [Moles/volume] d">Carbon Medical in Serum or Dioxide Center Plasma </content>31 MEQ/L H<content styleCode="Abi lics"> (22-30 MEQ/L)</conten t> UNK 7-17 <content Saint styleCode="Fred Patria d">BUN Medical </content>7 Center MG/DL<content styleCode="Abi lics"> (7-17 MG/DL)</conten t> Chloride 98-107 <content Saint [Moles/volume] styleCode="Fred Patria in Serum or d">Chloride Medical Plasma </content>105 Center MEQ/L<content styleCode="Abi lics"> (98-107 MEQ/L)</conten t> Calcium 8.4-10.2 <content Saint [Mass/volume] styleCode="Fred Patria in Serum or d">Calcium Medical Plasma </content>9.8 Center MG/DL<content styleCode="Abi lics"> (8.4-10.2 MG/DL)</conten t> UNK > 60 <content Saint styleCode="Fred Prabhakars d">EGFR Medical </content>164 Center GFR<content styleCode="Abi lics"> (> 60 GFR)</content> Glucose 74-106 <content Saint [Mass/volume] styleCode="Fred Prabhakars in Serum or d">Glucose Medical Plasma </content>99 Center MG/DL<content styleCode="Abi lics"> (74-106 MG/DL)</conten t> Creatinine 0.5-1.3 <content Saint [Mass/volume] styleCode="Fred España in Serum or d">Creatinine Medical Plasma </content>0.5 Center MG/DL<content styleCode="Abi lics"> (0.5-1.3 MG/DL)</conten t> ID Date Data Source Urinalysis.[id number] 02/11/2019 03:15:00 PM EDT [facility] 0 Name Value Range Interpretation Description Data Sup porting Code Source(s) Document(s ) UNK NEGATIVE <content Saint styleCode="Fred Prabhakars d">Urine Medical Bilirubin Center </content>NEGA TIVE <content styleCode="Abi lics"> (NEGATIVE )</content> Color of Urine YELLOW <content Saint styleCode="Fred Prabhakars d">Color, Medical Urine Center </content>YELL OW <content styleCode="Abi lics"> (YELLOW )</content> UNK CLEAR <content Saint styleCode="Fred Prabhakars d">Urine Medical Clarity Center </content>CELINE R <content styleCode="Abi lics"> (CLEAR )</content> Glucose NEGATIVE <content Saint [Mass/volume] styleCode="Fred España in Urine by d">Urine Medical Test strip Glucose Center </content>NEGA TIVE MG/DL<content styleCode="Abi lics"> (NEGATIVE MG/DL)</conten t> Specific 1.015-1.02 Below low normal <content Saint gravity of 5 styleCode="Fred Patria Urine by Test d">Urine Medical strip Specific Center [place] </content>1.01 0 L<content styleCode="Abi lics"> (1.015-1.025 )</content> Hemoglobin NEGATIVE <content Saint [Presence] in styleCode="Fred Patria Urine by Test d">Urine Blood Medical strip </content>NEGA Center TIVE <content styleCode="Abi lics"> (NEGATIVE )</content> Ketones NEGATIVE <content Saint [Mass/volume] styleCode="Fred [place] in Urine by d">Urine Medical Test strip Ketone Center </content>NEGA TIVE MG/DL<content styleCode="Abi lics"> (NEGATIVE MG/DL)</conten t> Urobilinogen 0.2-1.0 <content Saint [Units/volume] styleCode="Fred Patria in Urine by d">Urine Medical Test strip Urobilinogen Center </content>0.2 MG/DL<content styleCode="Abi lics"> (0.2-1.0 MG/DL)</conten t> Protein NEGATIVE <content Saint [Mass/volume] styleCode="Fred [place] in Urine by d">Urine Medical Test strip Protein Center </content>NEGA TIVE MG/DL<content styleCode="Abi lics"> (NEGATIVE MG/DL)</conten t> pH of Urine by 4.5-8.0 <content Saint Test strip styleCode="Fred Patria d">Urine pH Medical </content>6.5 Center <content styleCode="Abi lics"> (4.5-8.0 )</content> Nitrite NEGATIVE <content Saint [Presence] in styleCode="Fred [place] Urine by Test d">Urine Medical strip Nitrite Center </content>NEGA TIVE <content styleCode="Abi lics"> (NEGATIVE )</content> Leukocyte NEGATIVE <content Saint esterase styleCode="Fred Patria [Presence] in d">Urine Medical Urine by Test Leukocyte Center strip </content>NEGA TIVE <content styleCode="Abi lics"> (NEGATIVE )</content> Procedure Social History Code Duration Value Status Description Data Source(s ) Smoking 02/02/2020 Former Smoker completed Former Smoker eCW3 ([facility] 12:00:00 AM [facility]) Smoking 02/02/2020 Former Smoker completed Former Smoker eCW3 ([facility] 12:00:00 AM [facility]) Smoking 01/26/2020 Former Smoker completed Former Smoker eCW3 ([facility]son 12:00:00 AM [facility]) Smoking 12/29/2019 Former Smoker completed Former Smoker eCW3 (Hu [facility]son 12:00:00 AM [facility]) Smoking 12/29/2019 Former Smoker completed Former Smoker eCW3 ([facility]son 12:00:00 AM [facility]) Caffeine Use 12/17/2019 completed NEXTGEN (Jose Eduardo nt Details 12:00:00 AM [facility]) Smoking 12/17/2019 Unknown if completed Unknown if ever NEXTGEN ( [facility] 12:00:00 AM EDT ever smoked smoked [facility]) Smoking 12/01/2019 Former Smoker completed Former Smoker eCW3 (Hu [facility]son 12:00:00 AM [facility]) Smoking 12/01/2019 Former Smoker completed Former Smoker eCW3 ([facility]son 12:00:00 AM [facility]) Smoking 12/01/2019 Former Smoker completed Former Smoker eCW3 (Hu [facility]son 12:00:00 AM [facility]) Caffeine Use 11/20/2019 completed NEXTGEN (Jose Eduardo nt Details 12:00:00 AM [facility]) Smoking 11/17/2019 Former Smoker completed Former Smoker eCW3 (Hu [facility]son 12:00:00 AM [facility]) Smoking 11/13/2019 Former Smoker completed Former Smoker eCW3 ([facility]son 12:00:00 AM [facility]) Smoking 10/31/2019 Former Smoker completed Former Smoker eCW3 (Hu [facility]son 12:00:00 AM [facility]) Smoking 10/01/2019 Former Smoker completed Former Smoker eCW3 ([facility]son 12:00:00 AM [facility]) Smoking 10/01/2019 Former Smoker completed Former Smoker eCW3 (Hu dson 12:00:00 AM [facility]) Smoking 10/01/2019 Former Smoker completed Former Smoker eCW3 (Hu [facility]son 12:00:00 AM [facility]) Smoking 08/16/2019 Former Smoker completed Former Smoker eCW3 ([facility]son 12:00:00 AM [facility]) Smoking 08/16/2019 Former Smoker completed Former Smoker eCW3 ([facility] 12:00:00 AM [facility]) Smoking 08/16/2019 Former Smoker completed Former Smoker eCW3 ([facility] 12:00:00 AM [facility]) Smoking 08/16/2019 Former Smoker completed Former Smoker eCW3 ([facility] 12:00:00 AM [facility]) Smoking 05/15/2019 Former Smoker completed Former Smoker eCW3 ([facility] dson 12:00:00 AM [facility]) Smoking 03/28/2019 Former Smoker completed Former Smoker eCW3 (Hu dson 12:00:00 AM [facility]) Smoking 03/15/2019 Daily Smoker completed Daily Smoker [facility] 12:10:00 AM EST Medical C enter Smoking 03/14/2019 Daily Smoker completed Daily Smoker [facility] 10:40:00 PM EST Medical C enter Smoking 03/14/2019 Daily Smoker completed Daily Smoker [facility] 05:32:00 PM EST Medical C enter Smoking 03/14/2019 Daily Smoker completed Daily Smoker [facility] 03:49:00 PM EST Medical C enter Smoking 03/14/2019 Daily Smoker completed Daily Smoker [facility] 03:14:00 PM EST Medical C enter Smoking 02/11/2019 Daily Smoker completed Daily Smoker [facility] 08:41:00 PM EDT Medical C enter Smoking 02/11/2019 Daily Smoker completed Daily Smoker [facility] 08:32:00 PM EDT Medical C enter Smoking 02/11/2019 Daily Smoker completed Daily Smoker [facility] 05:35:00 PM EDT Medical C enter Smoking 02/11/2019 Daily Smoker completed Daily Smoker [facility] 01:27:00 PM EDT Medical C enter Smoking 02/11/2019 Daily Smoker completed Daily Smoker [facility] 01:22:00 PM EDT Medical C enter Smoking 01/15/2019 Former Smoker completed Former Smoker eCW3 ([facility] 12:00:00 AM EDT [facility]) Smoking 01/15/2019 Former Smoker completed Former Sm[facility] 01/15/2019 Former Smoker completed Former Smoker eCW3 ([facility] 12:00:00 AM EDT [facility]) Smoking 10/24/2018 Current completed Current Smoker eCW3 ([place] [facility] 12:00:00 AM EDT Smoker [facility]) Smoking 09/23/2018 Current completed Current Smoker eCW3 ([place] 12:00:00 AM EDT Smoker [facility]) Smoking 08/01/2018 Current completed Current Smoker eCW3 ([place] [facility] 12:00:00 AM EDT Smoker [facility]) Former Smoker completed Former Smoker eCW3 ([facility]) Former Smoker completed Former Smoker eCW3 ([facility]) Former Smoker completed Former Smoker eCW3 ([facility]) Former Smoker completed Former Smoker eCW3 ([facility]) Former Smoker completed Former Smoker eCW3 ([facility]) Alcohol Use completed NEXTGEN ([facility]) Former Smoker completed Former Smoker eCW3 ([facility]) Former Smoker completed Former Smoker eCW3 ([facility] Former Smoker completed Former Smoker eCW3 ([facility]) Former Smoker completed Former Smoker eCW3 ([facility]) Former Smoker completed Former Smoker eCW3 ([facility] Former Smoker completed Former Smoker eCW3 ([facility]) Former Smoker completed Former Smoker eCW3 ([facility]) Former Smoker completed Former Smoker eCW3 ([facility]) Former Smoker completed Former Smoker eCW3 ([facility]) Former Smoker completed Former Smoker eCW3 ([facility]) Former Smoker completed Former Smoker eCW3 ([facility]) Former Smoker completed Former Smoker eCW3 ([facility]) Former Smoker completed Former Smoker eCW3 ([facility]) Smoking Unknown if completed Unknown if ever [facility] ever smoked smoked [facility] Former Smoker completed Former Smoker eCW3 ([facility]) Former Smoker completed Former Smoker eCW3 ([facility]) Former Smoker completed Former Smoker eCW3 ([facility]) Former Smoker completed Former Smoker eCW3 ([facility]) Former Smoker completed Former Smoker eCW3 ([facility]) Smoking Unknown if completed Unknown if ever eCW2 (Hud son ever smoked smoked [facility]) Smoking Unknown if completed Unknown if ever eCW2 (Hud son ever smoked smoked [facility]) Smoking Unknown if completed Unknown if ever eCW2 (Hud son ever smoked smoked [facility]) Smoking Unknown if completed Unknown if ever eCW2 (Hud son ever smoked smoked [facility]) Current completed Current Smoker eCW3 ([facility] Smoker [facility]) Current completed Current Smoker eCW3 ([facility] Smoker [facility]) Current completed Current Smoker eCW3 ([facility] on Smoker [facility]) Vital Signs ID Date Data Source UNK Name Value Range Interpretation Code Description Data Source(s) Body temperature 37.226207 37.525403 [facility] Respiratory rate 18 /min 18 /min [facility] Heart rate 70 /min 70 /min [facility] Diastolic blood 89 mm[Hg] 89 mm[Hg] [facility] pressure [facility] Systolic blood 150 mm[Hg] 150 mm[Hg] [facility] Body weight 159.344096 159.071066 kg [facility] Measured kg Medical [place] Body height 170.142836 170.403347 cm [facility] Medical [place] Body mass index 54.90 kg/m2 54.90 kg/m2 [facility] osep (BMI) [Ratio] Medical [facility] Diastolic blood 78 mm[Hg] 78 mm[Hg] [facility] Systolic blood 126 mm[Hg] 126 mm[Hg] [facility] Body temperature 36.342124 36.367119 [facility] Respiratory rate 20 /min 20 /min [facility] Heart rate 78 /min 78 /min [facility] Body weight 159.903329 159.218676 kg [facility] Measured kg Medical Center Body temperature 36.379591 36.027021 [facility] Respiratory rate 18 /min 18 /min [facility] Heart rate 77 /min 77 /min [facility] Diastolic blood 98 mm[Hg] 98 mm[Hg] [facility] pressure Medical Center Systolic blood 140 mm[Hg] 140 mm[Hg] [facility] Body temperature 36.758896 36.443556 [facility] Respiratory rate 20 /min 20 /min [facility] Oxygen saturation 97 % 97 % [facility] Arterial blood [facility] by Pulse oximetry Heart rate 56 /min 56 /min [facility] Diastolic blood 72 mm[Hg] 72 mm[Hg] [facility] Systolic blood 120 mm[Hg] 120 mm[Hg] [facility] Diastolic blood 98 mm[Hg] 98 mm[Hg] [facility] Systolic blood 170 mm[Hg] 170 mm[Hg] [facility] Body temperature 36.305837 36.907063 [facility] Respiratory rate 22 /min 22 /min [facility] Oxygen saturation 97 % 97 % [facility] blood [facility] Center by Pulse oximetry Heart rate 58 /min 58 /min [facility] Oxygen saturation 97 % 97 % [facility] Arterial blood [facility] Center by Pulse oximetry Oxygen saturation 97 % 97 % [facility] Arterial blood [facility] Center by Pulse oximetry Body weight 161.340238 161.423490 kg [facility] Measured kg Medical Center Oxygen saturation 97 % 97 % [facility] Arterial blood [facility] Center by Pulse oximetry Body height 167.641713 167.992682 cm [facility] Medical Center Body mass index 57.6 kg/m2 57.6 kg/m2 [facility] (BMI) [Ratio] Medical [place] [facility] Diastolic blood 81 mm[Hg] 81 mm[Hg] eCW3 ([facility]) Systolic blood 150 mm[Hg] 150 mm[Hg] eCW3 ([facility]) Body temperature 98.1 [degF] 98.1 [degF] eCW3 ( [facility]) Heart rate 20 /min 20 /min eCW3 ([facility]) Body weight [lb_av] eCW3 ([facility]) Body height 62 [in_i] 62 [in_i] eCW3 ([facility]) Body temperature 36.094327 36.231015 [facility] Respiratory rate 20 /min 20 /min [facility] Oxygen saturation 94 % 94 % [facility] Arterial blood Medical Center by Pulse oximetry Heart rate 71 /min 71 /min [facility] Diastolic blood 75 mm[Hg] 75 mm[Hg] [facility] Systolic blood 143 mm[Hg] 143 mm[Hg] [facility] Body weight 151.171077 151.365174 kg [facility] Measured kg [facility] Body height 157.038136 157.952111 cm [facility] Body mass index 61.27 kg/m2 61.27 [facility]/m2 [facility] ([facility] [Ratio] Medical [facility] Body weight 158.097655 158.538027 kg [facility] Measured kg [facility] Body temperature 37.633742 37.867293 [facility] Respiratory rate 18 /min 18 /min [facility] Heart rate 70 /min 70 /min [facility] Body height 160.095081 160.164926 cm [facility] Diastolic blood 71 mm[Hg] 71 mm[Hg] [facility] Systolic blood 151 mm[Hg] 151 mm[Hg] [facility] Body mass index 62.00 kg/m2 62.00 kg/m2 [facility] osephs (BMI) [Ratio] Medical [facility] Body temperature 36.727853 36.680447 [facility] Respiratory rate 17 /min 17 /min [facility] Oxygen saturation 96 % 96 % [facility] Arterial blood [facility] by Pulse oximetry Heart rate 86 /min 86 /min [facility] Diastolic blood 81 mm[Hg] 81 mm[Hg] [facility] Systolic blood 144 mm[Hg] 144 mm[Hg] [facility] Body temperature 36.938708 36.171366 [facility] Respiratory rate 20 /min 20 /min [facility] Oxygen saturation 97 % 97 % [facility] [place] in [facility] blood Medical Center by Pulse oximetry Heart rate 74 /min 74 /min [facility] Diastolic blood 84 mm[Hg] 84 mm[Hg] [facility] Systolic blood 148 mm[Hg] 148 mm[Hg] [facility] pressure [facility] Diastolic blood 78 mm[Hg] 78 mm[Hg] eCW3 ([facility]) Systolic blood 154 mm[Hg] 154 mm[Hg] eCW3 ([facility]) Body temperature 98.2 [degF] 98.2 [degF] eCW3 ( [facility]) Heart rate 20 /min 20 /min eCW3 ([facility]) Body weight [lb_av] eCW3 ([facility]) Body height 62 [in_i] 62 [in_i] eCW3 ([facility]) Body height 62 [in_i] 62 [in_i] eCW3 ([facility]) Diastolic blood 78 mm[Hg] 78 mm[Hg] eCW3 ([facility]) Systolic blood 119 mm[Hg] 119 mm[Hg] eCW3 ([facility]) Body temperature 98.6 [degF] 98.6 [degF] eCW3 ( [facility]) Heart rate 18 /min 18 /min eCW3 ([facility]) Body weight [lb_av] eCW3 ([facility]) Body height 62 [in_i] 62 [in_i] eCW3 ([facility]) Diastolic blood 82 mm[Hg] 82 mm[Hg] eCW3 ([facility]) Systolic blood 129 mm[Hg] 129 mm[Hg] eCW3 ([facility]) Body temperature 98.8 [degF] 98.8 [degF] eCW3 ( [facility]) Heart rate 20 /min 20 /min eCW3 ([facility]) Body mass index 59.44 kg/m2 59.44 kg/m2 eCW3 ([facility] (BMI) [Ratio] [facility]) Body weight 325 [lb_av] 325 [lb_av] eCW3 ([facility]) Body height 62 [in_i] 62 [in_i] eCW3 ([facility]) Body mass index 62.91 kg/m2 62.91 kg/m2 eCW3 ([facility] (BMI) [Ratio] [facility]) Body weight 344 [lb_av] 344 [lb_av] eCW3 ([facility]) Body height 62 [in_i] 62 [in_i] eCW3 ([facility]) Diastolic blood 79 mm[Hg] 79 mm[Hg] eCW3 ([facility]) Systolic blood 120 mm[Hg] 120 mm[Hg] eCW3 ([facility]) Body temperature 98.2 [degF] 98.2 [degF] eCW3 ( [facility]) Heart rate 20 /min 20 /min eCW3 ([facility]) Body mass index 62.91 kg/m2 62.91 kg/m2 eCW3 ([facility] (BMI) [Ratio] [facility]) Body weight 344 [lb_av] 344 [lb_av] eCW3 ([facility]) Body height 62 [in_i] 62 [in_i] eCW3 ([facility]) Body mass index 62.29 kg/m2 62.29 kg/m2 eCW3 ([facility] (BMI) [Ratio] [facility]) Body weight 340.6 340.6 [lb_av] eCW3 ([facility] on [lb_av] [facility]) Body height 62 [in_i] 62 [in_i] eCW3 ([facility]) Diastolic blood 75 mm[Hg] 75 mm[Hg] eCW3 ([facility]) Systolic blood 134 mm[Hg] 134 mm[Hg] eCW3 ([facility]) Body temperature 98.1 [degF] 98.1 [degF] eCW3 ( [facility]) Heart rate 20 /min 20 /min eCW3 ([facility]) Body mass index 62.29 kg/m2 62.29 kg/m2 eCW3 ([facility] (BMI) [Ratio] [facility]) Body weight 340.6 340.6 [lb_av] eCW3 ([facility] on [lb_av] [facility]) Body height 62 [in_i] 62 [in_i] eCW3 ([facility]) Diastolic blood 72 mm[Hg] 72 mm[Hg] eCW3 ([facility]) Systolic blood 138 mm[Hg] 138 mm[Hg] eCW3 ([facility]) Body temperature 97.7 [degF] 97.7 [degF] eCW3 ( [facility]) Heart rate 20 /min 20 /min eCW3 ([facility]) Body mass index 65.29 kg/m2 65.29 kg/m2 eCW3 ([facility] (BMI) [Ratio] [facility]) Body weight 357 [lb_av] 357 [lb_av] eCW3 ([facility]) Body height 62 [in_i] 62 [in_i] eCW3 ([facility]) Body weight [lb_av] eCW3 ([facility]) Body height 62 [in_i] 62 [in_i] eCW3 ([facility]) Diastolic blood 82 mm[Hg] 82 mm[Hg] eCW3 ([facility]) Systolic blood 131 mm[Hg] 131 mm[Hg] eCW3 ([facility]) Body temperature 98.0 [degF] 98.0 [degF] eCW3 ( [facility]) Heart rate 20 /min 20 /min eCW3 ([facility]) Body mass index 61.27 kg/m2 61.27 kg/m2 eCW3 ([facility] (BMI) [Ratio] [facility]) Body weight 335 [lb_av] 335 [lb_av] eCW3 ([facility]) Body height 62 [in_i] 62 [in_i] eCW3 ([facility]) Patient Treatment Plan of Care Planned Activity Planned Date Details Description Data Source (s) aripiprazole 10 MG Oral 12/18/2019 12:00:00 NEXTGEN ([facility] Tablet [Abilify] AM [facility]) lamotrigine 200 MG Oral 12/18/2019 12:00:00 NEXTGEN ([facility] Tablet [Lamictal] AM [facility]) Hydroxyzine Pamoate 50 MG 12/18/2019 12:00:00 NEXTGEN (Saint Oral Capsule [Vistaril] [facility]) 200 ACTUAT Albuterol 0.09 12/03/2019 12:00:00 eCW3 ([place] MG/ACTUAT Metered Dose AM [facility]) Inhaler [Ventolin] 200 ACTUAT Albuterol 0.09 12/03/2019 12:00:00 eCW3 ([place] MG/ACTUAT Metered Dose AM [facility]) Inhaler [Ventolin] 60 ACTUAT Fluticasone 12/01/2019 12:00:00 eCW3 ([place] propionate 0.5 MG/ACTUAT / AM [facility]) salmeterol 0.05 MG/ACTUAT Dry Powder Inhaler [Advair] 60 ACTUAT Fluticasone 12/01/2019 12:00:00 eCW3 ([place] propionate 0.5 MG/ACTUAT / AM [facility]) salmeterol 0.05 MG/ACTUAT Dry Powder Inhaler [Advair] aripiprazole 10 MG Oral 11/20/2019 12:00:00 NEXTGEN ([facility] Tablet [Abilify] AM [facility]) lamotrigine 200 MG Oral 11/20/2019 12:00:00 NEXTGEN ([facility] Tablet [Lamictal] [facility]) Hydroxyzine Pamoate 50 MG 11/20/2019 12:00:00 NEXTGEN ([facility] Oral Capsule [Vistaril] [facility]) Foam Dressing - 09/18/2019 12:00:00 eCW3 ([place] [facility]) Foam Dressing - 09/18/2019 12:00:00 eCW3 ([place] [facility]) Foam Dressing - 09/18/2019 12:00:00 eCW3 ([place] [facility]) Hydroxyzine Pamoate 50 MG 09/10/2019 12:00:00 NEXTGEN ([facility] Oral Capsule [Vistaril] [facility]) lamotrigine 200 MG Oral 09/10/2019 12:00:00 NEXTGEN ([facility] Tablet [Lamictal] [facility]) aripiprazole 10 MG Oral 09/10/2019 12:00:00 NEXTGEN ([facility] Tablet [Abilify] [facility]) Ibuprofen 400 MG Oral 08/14/2019 12:00:00 eCW3 ([place] Tablet [facility]) Ibuprofen 400 MG Oral 08/14/2019 12:00:00 eCW3 ([place] Tablet [facility]) Ibuprofen 400 MG Oral 08/14/2019 12:00:00 eCW3 ([place] Tablet [facility]) Ibuprofen 400 MG Oral 08/14/2019 12:00:00 eCW3 ([place] Tablet [facility]) Hydroxyzine Pamoate 50 MG 08/01/2019 12:00:00 NEXTGEN (Saint Oral Capsule [Vistaril] [facility]) lamotrigine 200 MG Oral 08/01/2019 12:00:00 NEXTGEN ([facility] Tablet [Lamictal] [facility]) aripiprazole 10 MG Oral 08/01/2019 12:00:00 NEXTGEN ([facility] Tablet [Abilify] [facility]) Hydroxyzine Pamoate 50 MG 06/04/2019 12:00:00 NEXTGEN (Saint Oral Capsule [Vistaril] [facility]) lamotrigine 200 MG Oral 06/04/2019 12:00:00 NEXTGEN ([facility] Tablet [Lamictal] [facility]) aripiprazole 10 MG Oral 06/04/2019 12:00:00 NEXTGEN ([facility] Tablet [Abilify] [facility]) Hydroxyzine Pamoate 50 MG 03/24/2019 12:00:00 NEXTGEN ([facility] Oral Capsule [Vistaril] [facility]) lamotrigine 200 MG Oral 03/24/2019 12:00:00 NEXTGEN ([facility] Tablet [Lamictal] AM [facility]) aripiprazole 10 MG Oral 03/24/2019 12:00:00 NEXTGEN ([facility] Tablet [Abilify] AM [facility]) aripiprazole 10 MG Oral 01/20/2019 12:00:00 NEXTGEN ([facility] Tablet [Abilify] [facility]) Hydroxyzine Pamoate 50 MG 01/20/2019 12:00:00 NEXTGEN (Saint Oral Capsule [Vistaril] [facility]) lamotrigine 200 MG Oral 01/20/2019 12:00:00 NEXTGEN ([facility] Tablet [Lamictal] [facility]) Zinc Oxide 0.2 MG/MG 01/03/2019 12:00:00 eCW3 ([place] Topical Ointment [facility] ) Hydroxyzine Pamoate 50 MG 12/03/2018 12:00:00 NEXTGEN (Saint Oral Capsule [Vistaril] [facility]) lamotrigine 200 MG Oral 12/03/2018 12:00:00 NEXTGEN ([facility] Tablet [Lamictal] [facility]) aripiprazole 10 MG Oral 12/03/2018 12:00:00 NEXTGEN ([facility] Tablet [Abilify] [facility]) Acetaminophen 500 MG Oral 11/18/2018 12:00:00 eCW3 ([place] Tablet [facility]) Acetaminophen 500 MG Oral 11/18/2018 12:00:00 eCW3 ([place] Tablet [facility]) Hydroxyzine Pamoate 50 MG 10/23/2018 12:00:00 NEXTGEN (Saint Oral Capsule [Vistaril] [facility]) lamotrigine 200 MG Oral 10/23/2018 12:00:00 NEXTGEN ([facility] Tablet [Lamictal] [facility]) aripiprazole 10 MG Oral 10/23/2018 12:00:00 NEXTGEN ([facility] Tablet [Abilify] [facility]) Hydroxyzine Pamoate 50 MG 08/16/2018 12:00:00 NEXTGEN (Saint Oral Capsule [Vistaril] [facility]) lamotrigine 200 MG Oral 08/16/2018 12:00:00 NEXTGEN ([facility] Tablet [Lamictal] [facility] dical [place]) aripiprazole 10 MG Oral 08/16/2018 12:00:00 NEXTGEN ([facility] Tablet [Abilify] [facility] Disposable Liners - 07/15/2018 12:00:00 e CW3 ([place] [facility]) 200 ACTUAT Albuterol 0.09 07/04/2016 12:00:00 eCW3 ([employer] MG/ACTUAT Metered Dose [facility]) Inhaler [Ventolin] Loratadine 10 MG Oral 03/02/2016 12:00:00 eCW3 ([facility] Tablet [facility]) montelukast 10 MG Oral 03/02/2016 12:00:00 eCW3 ([place] Tablet [Singulair] [facility] re) Nebulizer compatible with 07/15/2015 12:00:00 eCW3 ([place] patient insurance [facility] Car e) pregabalin 200 MG Oral eCW3 ([place] Capsule [Lyrica] [facility] ) pregabalin 150 MG Oral eCW3 ([place] Capsule [Lyrica] [facility] ) Omeprazole 20 MG Delayed eCW 3 ([facility] Release Oral Capsule Health Care) Omeprazole 20 MG Delayed eCW 3 ([place] Release Oral Capsule Health Care) Lancets - eCW3 ([facility]) Furosemide 40 MG Oral eCW3 ( [place] Tablet [facility] Care) pregabalin 100 MG Oral eCW3 ([place] Capsule [Lyrica] [facility] ) Isopropyl Alcohol 0.7 eCW3 ( [place] [place] ML/ML Medicated [facility] Blood Glucose Test - eCW3 ([facility]) ALBUTEROL SULFATE 0.083% eCW 3 ([employer] [facility] 2.5 mg/3 ml Health Care) Lancets - eCW3 ([facility]) Furosemide 40 MG Oral eCW3 ( [facility] Tablet Health Care) pregabalin 100 MG Oral eCW3 ([facility] Capsule [Lyrica] Health [facility] ) Isopropyl Alcohol 0.7 eCW3 ( [place] ML/ML Medicated [facility] are) Blood Glucose Test - eCW3 ([facility]) Lancets - eCW3 ([facility]) Furosemide 40 MG Oral eCW3 ( [facility] Tablet Health Care) pregabalin 100 MG Oral eCW3 ([facility] Capsule [Lyrica] [facility] ) Isopropyl Alcohol 0.7 eCW3 ( [place] ML/ML Medicated [facility] C are) Blood Glucose Test - eCW3 ([facility]) Lancets - eCW3 ([facility]) Furosemide 40 MG Oral eCW3 ( [facility] Tablet [facility] Care) pregabalin 100 MG Oral eCW3 ([facility] Capsule [Lyrica] [facility] ) Isopropyl Alcohol 0.7 eCW3 ( [place] ML/ML Medicated [facility] C are) Blood Glucose Test - eCW3 ([facility]) Furosemide 40 MG Oral eCW3 ( [facility] Tablet [facility]) Omeprazole 20 MG Delayed eCW 3 ([facility] Release Oral Capsule [facility]) calcium carbonate-vitamin Sa [facility] D3 (Calcium 600 + D(3)) [facility] 600 mg calcium (1,500 mg)-200 unit Tablet Ergocalciferol 21038 UNT [facility] Oral Capsule Medical Center Omeprazole 20 MG Delayed [facility] Oral Capsule [facility] Loratadine 10 MG Oral [facility] lamotrigine 200 MG Oral [facility] Acetaminophen 325 MG / [facility] Oxycodone Hydrochloride 5 Me dical Center MG Oral Tablet montelukast 10 MG Oral [facility] gabapentin 800 MG Oral [facility] Center 60 ACTUAT Fluticasone [facility] propionate 0.23 MG[facility]ACTUAT [facility] salmeterol 0.021 MG/ACTUAT Metered Dose Inhaler [Advair] aripiprazole 10 MG Oral [facility] Omeprazole 20 MG Delayed eCW 3 ([facility] Release Oral Capsule [facility]) Blood Glucose Test - eCW3 ([facility]) 120 ACTUAT Fluticasone eCW3 ([place] propionate 0.23 MG/ACTUAT He alth Care) / salmeterol 0.021 MG/ACTUAT Metered Dose Inhaler [Advair] pregabalin 100 MG Oral eCW3 ([place] Capsule [Lyrica] Health Care ) montelukast 10 MG Oral eCW3 ([place] Tablet [Singulair] Health Ca re) Isopropyl Alcohol 0.7 eCW3 ( [place] ML/ML Medicated [facility] are) pregabalin 100 MG Oral eCW3 ([place] Capsule [Lyrica] Health Care ) 120 ACTUAT Fluticasone eCW3 ([place] propionate 0.23 MG/ACTUAT alth Care) / salmeterol 0.021 MG/ACTUAT Metered Dose Inhaler [Advair] MULTI-VITAMIN TABLET 1 TAB S [facility] DAILY [facility] Magnesium Oxide 400 MG [facility] Acetaminophen 325 MG / [facility] Oxycodone Hydrochloride 10 M edical Center MG Oral Tablet Omeprazole 20 MG Delayed [facility] Oral Capsule [facility] montelukast 10 MG Oral [facility] Loratadine 10 MG Oral [facility] lamotrigine 200 MG Oral [facility] gabapentin 800 MG Oral [facility] 60 ACTUAT Fluticasone [facility] propionate 0.23 MG/ACTUAT [facility] / salmeterol 0.021 MG/ACTUAT Metered Dose Inhaler [Advair] Ergocalciferol [id number] [facility] Oral Capsule [facility] Baclofen 20 MG Oral Tablet S [facility] aripiprazole 10 MG Oral [facility]
[2020-02-10] MEDS ORDERED: ALBUTEROL SO4 HFA INHALER IH ONE ×2 (20:43→21:23)
[2020-02-10] MEDS ORDERED: methylPREDNISolone NA SUCC 125 MG/2 ML VIAL IVPB ONE (20:43)
[2020-02-10] MEDS ORDERED: MAGNESIUM SULF 50% (8.12 MEQ/2 ML-1 GM VIAL) IVPB ONE (20:43)
--- NOTE | 2020-02-10 20:50 | PDOC ---
History of Present Illness - General Chief Complaint: Shortness of Breath Stated Complaint: SOB, DIZZINESS, NUMBNESS History Source: Patient Exam Limitations: No Limitations - History of Present Illness Initial Comments: 59 yo F with a hx of COPD (denies home O2 use), functional paraplegia (needs wheelchair for ambulation), chronic back pain on management, bipolar disorder, schizophrenia, sleep apnea (on CPAP-inconsistent use), HTN, HLD, DM, lymphedema (40 mg daily lasix; compliant), morbid obesity, and degenerative arthritis presents to the emergency department with worsening bilateral LE edema that has been ongoing for "months" with lightheadedness. Per the patient, she states that her LE edema has been worsening for "months" and that she is having increasing pain throughout the distal portion bilaterally. In addition, the patient states she has been having lightheadedness events that last seconds to minutes. She endorses partial compliance with medications, but is unable to state with ce rtainty which ones she has missed. Endorses using lasix. Denies the following: fevers, chills, nausea, vomiting, chest pain, SOB, palpitations, dysuria, hematuria, and diarrhea. Allergies: NKDA Past History - Medical History Allergies/Adverse Reactions: Allergies Allergy/AdvReac Type Severity Reaction Status Date / Time No Known Allergies Allergy Verified 02/15/20 11:24 Home Medications: Ambulatory Orders Lamotrigine [Lamictal -] 200 mg PO DAILY 01/12/14 Montelukast Na [Singulair -] 10 mg PO HS 01/12/14 Omeprazole 20 mg PO DAILY 12/12/17 Vitamin E - 400 unit PO DAILY #30 capsule 01/07/19 Pregabalin [Lyrica -] 200 mg PO TID 07/09/19 Loratadine 10 mg PO DAILY 11/10/19 Zolpidem Tartrate [Ambien] 10 mg PO DAILY 11/10/19 Diclofenac Sodium [Voltaren] 2 gm TP TID PRN #3 tube 01/08/20 Vitamin B Complex [B Complex] 1 each PO DAILY #30 tablet 01/08/20 Baclofen 20 mg PO TID PRN #90 tablet 02/09/20 Oxycodone HCl/Acetaminophen [Endocet 10-325 mg Tablet] 1 each PO TID PRN #90 tablet MDD 3 02/09/20 Albuterol Sulfate Inhaler - [Ventolin HFA Inhaler -] 2 puff PO Q4H 02/11/20 Aripiprazole 1 tab PO BID 02/11/20 Calcium Carbonate/Vitamin D3 [Calcium 600-Vit D3 200 Tablet] 1 tab PO DAILY 02/11/20 Fluticasone Prop 0.05% Nasal [Flonase -] 1 puff IN DAILY 02/11/20 Mv-Min/Folic/Vit K/Lycop/Coq10 [Daily Multivitamin Capsule] 1 cap PO DAILY 02/11/20 hydrOXYzine PAMOATE [Vistaril -] 50 mg PO DAILY 02/11/20 Bumetanide 1 mg PO DAILY #30 tablet 02/13/20 Ergocalciferol (Vitamin D2) [Vitamin D2] 1 tab PO ASDIR 02/13/20 Ferrous Sulfate 1 tab PO DAILY 02/13/20 Fluticasone/Salmeterol [Advair 250-50 Diskus] 1 puff PO BID 02/13/20 Anemia: No Asthma: Yes Cancer: No Cardiac Disorders: No CVA: No COPD: Yes CHF: No Dementia: No Diabetes: Yes (BORDERLINE) GI Disorders: Yes (GERD) Disorders: No HTN: Yes Hypercholesterolemia: Yes Liver Disease: No Seizures: No Thyroid Disease: No - Surgical History Abdominal Surgery: No Appendectomy: No Cardiac Surgery: No Cholecystectomy: Yes Lung Surgery: No Neurologic Surgery: No Orthopedic Surgery: Yes (; left ankle surgery 2004 with johnny; left shoulder 2015 ) - Immunization History Immunization Up to Date: No - Psycho-Social/Smoking History Smoking Status: Yes Smoking History: Current every day smoker Have you smoked in the past 12 months: Yes Number of Cigarettes Smoked Daily: 10 If you are a former smoker, when did you quit?: 6 months Information on smoking cessation initiated: No 'Breaking Loose' booklet given: 08/02/17 - Substance Abuse Hx (Audit-C & DAST Scrn) How often the patient has a drink containing alcohol: Monthly or less Number of drinks the patient has on a typical day: 3 or 4 How often the patient has six or more drinks on one occasion: Less than monthly Score: In Men: 4 or > Positive; In Women: 3 or > Positive: 3 Screen Result (Pos requires Nsg. Audit-10AR): Positive In the last yr the pt used illegal drug/Rx for NonMed reason: No Score: Yes response is considered Positive: 0 Screen Result (Positive result requires Nsg. DAST-10): Negative Review of Systems - Review of Systems Able to Perform ROS?: Yes Is the patient limited [place] proficient: No Constitutional: Yes: Weakness. No: Chills, Diaphoresis, Fever HEENTM: No: Eye Pain, Ear Pain, Nose Pain, Throat Pain Respiratory: No: Cough, Shortness of Breath Cardiac (ROS): Yes: Edema (chronic; denies acute worsening), Lightheadedness, Other (near syncope). No: Chest Pain, Irregular Heart Rate ABD/GI: No: Constipated, Diarrhea, Nausea, Vomiting : No: Dysuria, Hematuria Musculoskeletal: Yes: Back Pain (chronic; denies acute changes), Joint Pain (knees bilaterally; chronically) Integumentary: No: Rash Neurological: No: Headache, Dizziness Endocrine: No: Flushing *Physical Exam - Vital Signs Last Vital Signs Temp Pulse Resp BP Pulse Ox 98.8 F 73 24 H 149/82 92 L 02/10/20 19:50 02/10/20 19:50 02/10/20 19:50 02/10/20 19:50 02/10/20 19:50 - Physical Exam General Appearance: Yes: Nourished, Appropriately Dressed. No: Apparent Distress, Intoxicated HEENT: positive: EOMI, GRACY, Normal Voice, Other (moist mucous membranes) Neck: positive: Trachea midline, Supple. negative: Tender Respiratory/Chest: positive: Decreased Breath Sounds, Wheezing. negative: Chest Tender, Lungs Clear, Normal Breath Sounds, Respiratory Distress, Accessory Muscle Use Cardiovascular: positive: Regular Rhythm, Regular Rate, S1, S2. negative: Systolic Murmur Gastrointestinal/Abdominal: positive: Normal Bowel Sounds, Soft. negative: Tender Lymphatic: negative: Adenopathy Musculoskeletal: negative: Vertebral Tenderness Extremity: positive: Normal Capillary Refill, Pedal Edema, Swelling. negative: Normal Range of Motion (unable to fully range her legs bilaterally; chronic not changed from baseline) Integumentary: positive: Normal Color, Dry, Warm Neurologic: positive: Fully Oriented, Alert, Normal Mood/Affect ED Treatment Course - LABORATORY CBC & Chemistry Diagram: 02/13/20 08:40 02/13/20 08:40 - RADIOLOGY Radiology Studies Ordered: Category Date Time Status HEAD CT WITH CONTRAST [CT] Stat CT Scan 02/10/20 20:43 Ordered CHEST X-RAY PORTABLE* [RAD] Stat Radiology 02/10/20 20:18 Ordered DUPLEX VASCUL US-2LEGS [US] Stat Ultrasound 02/10/20 20:43 Ordered Medical Decision Making - Medical Decision Making 59 yo F with a hx of COPD (denies home O2 use), functional paraplegia (needs wheelchair for ambulation), chronic back pain on management, bipolar disorder, schizophrenia, sleep apnea (on CPAP-inconsistent use), HTN, HLD, DM, lymphedema (40 mg daily lasix; compliant), morbid obesity, and degenerative arthritis presents to the emergency department with worsening bilateral LE edema that has been ongoing for "months" with lightheadedness. Initial vitals; Initial Vital Signs Temp Pulse Resp BP Pulse Ox 98.8 F 73 24 H 149/82 92 L 02/10/20 19:50 02/10/20 19:50 02/10/20 19:50 02/10/20 19:50 02/10/20 19:50 Work up: patient presents to the emergency department with bilateral LE edema and lightheadedness ddx: edema of the LE: lymphedema vs DVT vs congestive changes due to cardiac output failure vs hypoalbuminemia ddx for lightheadedness: cardiac etiology (palpitations vs acs) vs hypovolemia vs chf exacerbation Laboratory Tests 02/10/20 02/10/20 02/10/20 22:00 22:00 22:00 WBC 5.3 RBC 3.94 Hgb 12.9 Hct 39.0 MCV 99.1 H MCH 32.8 MCHC 33.1 RDW 15.3 Plt Count 342 MPV 8.3 Absolute Neuts (auto) 2.6 Neutrophils % 49.6 Lymphocytes % 38.9 Monocytes % 8.1 Eosinophils % 2.9 Basophils % 0.5 Nucleated RBC % 0 PT with INR 12.90 INR 1.09 Anticoagulation Therapy Puncture Site Patient Temperature ABG pH ABG pCO2 ABG pO2 ABG HCO3 ABG O2 Sat (Measured) ABG O2 Content ABG Base Excess Srini Test Patient On Oxygen O2 Delivery Device Oxygen Flow Rate Vent Mode Vent Rate Mechanical Rate PEEP Pressure Support Vent Sodium 142 Potassium 4.4 Chloride 106 Carbon Dioxide 33 H Anion Gap 3 L BUN 9.2 Creatinine 0.5 L Est GFR (CKD-EPI)AfAm 124.52 Est GFR (CKD-EPI)NonAf 107.44 Random Glucose 94 Calcium 8.9 Magnesium 1.8 Total Bilirubin 0.2 AST 15 ALT 18 Alkaline Phosphatase 96 Creatine Kinase 157 Creatine Kinase Index 0.9 CK-MB (CK-2) 1.5 Troponin I < 0.02 B-Natriuretic Peptide 281.6 H Total Protein 7.3 Albumin 3.4 TSH 2.97 02/10/20 22:00 WBC RBC Hgb Hct MCV MCH MCHC RDW Plt Count MPV Absolute Neuts (auto) Neutrophils % Lymphocytes % Monocytes % Eosinophils % Basophils % Nucleated RBC % PT with INR INR Anticoagulation Therapy No Result Required. Puncture Site No Result Required. Patient Temperature No Result Required. ABG pH 7.337 L ABG pCO2 54.80 H ABG pO2 62.7 L ABG HCO3 28.7 H ABG O2 Sat (Measured) 90.3 L ABG O2 Content No Result Required. ABG Base Excess 1.8 Srini Test No Result Required. Patient On Oxygen No Result Required. O2 Delivery Device No Result Required. Oxygen Flow Rate No Result Required. Vent Mode No Result Required. Vent Rate No Result Required. Mechanical Rate No Result Required. PEEP No Result Required. Pressure Support Vent No Result Required. Sodium Potassium Chloride Carbon Dioxide Anion Gap BUN Creatinine Est GFR (CKD-EPI)AfAm Est GFR (CKD-EPI)NonAf Random Glucose Calcium Magnesium Total Bilirubin AST ALT Alkaline Phosphatase Creatine Kinase Creatine Kinase Index CK-MB (CK-2) Troponin I B-Natriuretic Peptide Total Protein Albumin TSH CXR shows congestive changes LE US is negative for DVT BNP is 282. EKG shows sinus arrhythmia without ST elevations or depressions. QTc is 449 ms. Patient to be admitted for CHF exacerbation/COPD exacerbation due to wheezing on exam and the worsening edema. Given 40 mg of lasix and given duonebs and solu- medrol. given oxygen to titrate spo2 to 88-92% Patient was endorsed to the hospitalist team and accepted for admission. Discharge - Discharge Information Problems reviewed: Yes Clinical Impression/Diagnosis: CHF, acute on chronic, Decreased mobility and endurance, COPD exacerbation, Asthma, Lymphedema - Follow up/Referral - Patient Discharge Instructions - Post Discharge Activity
--- NOTE | 2020-02-10 21:22 | PDOC ---
Attending Attestation - Resident Resident Name: Brent Olmedo - ED Attending Attestation I have performed the following: I have examined & evaluated the patient, The case was reviewed & discussed with the resident, I agree w/resident's findings & plan - HPI HPI: 02/10/20 23:31 see resident hpi - Physicial Exam PE: 02/10/20 23:32 see resident exam - Critical Care Time Total Critical Care Time: 60 Critical Care Statement: The care of this patient involved high complexity decision making to prevent further life threatening deterioration of the patient's condition and/or to evaluate & treat vital organ system(s) failure or risk of failure. - Medical Decision Making 02/10/20 23:34 59-year-old female, morbidly obese with history of CHF as well as COPD complaining of increased edema as well as increasing fatigue Exam consistent with mild respiratory failure secondary to COPD exacerbation/cardiac asthma with mild CHF exacerbation as well Duplex lower extremity to rule out DVT We will admit to medical service for further management Plan for bronchodilators and steroids as well as Lasix IV Discharge - Discharge Information Problems reviewed: Yes Clinical Impression/Diagnosis: CHF, acute on chronic, Decreased mobility and endurance, COPD exacerbation, Asthma Condition: Fair - Follow up/Referral Referrals: Edy Sanford MD [Primary Care Provider] - - Patient Discharge Instructions - Post Discharge Activity
[2020-02-10] MEDS ORDERED: methylPREDNISolone NA SUCC 125 MG/2 ML VIAL ONE (21:24)
[2020-02-10] MEDS ORDERED: MAGNESIUM SULF 50% (8.12 MEQ/2 ML-1 GM VIAL) ONE (21:24)
[2020-02-10 22:27] LABS: BASO % 0.5 % (0-2.0); EOS % 2.9 % (0-4.5); HEMOGLOBIN 12.9 GM/dL (10.7-15.3); LYMPH % 38.9 % (8-40); MCH 32.8 pg (25.7-33.7); MCHC 33.1 g/dl (32.0-36.0); MEAN CELL VOLUME 99.1 fl (80-96); MEAN PLT VOLUME 8.3 fl (7.5-11.1); MONO % 8.1 % (3.8-10.2); NEUT % 49.6 % (42.8-82.8); PLATELET COUNT 342 K/MM3 (134-434); RBC 3.94 M/mm3 (3.60-5.2); RDW 15.3 % (11.6-15.6); WHITE BLOOD COUNT 5.3 K/mm3 (4.0-10.0)
[2020-02-10 22:31] LABS: ARTERIAL BLD GAS O2 SATURATION 90.3 mmHg (95-98); ARTERIAL BLOOD GAS BASE EXCESS 1.8 mmol/L (-2-2); ARTERIAL BLOOD GAS PO2 62.7 mmHg (80-100); ARTERIAL BLOOD GAS pH 7.337 (7.350-7.450)
[2020-02-10 22:34] LABS: INR 1.09 (0.83-1.09); PROTHROMBIN TIME (PATIENT) 12.9 SEC (9.7-13.0)
[2020-02-10] MEDS ORDERED: ACETAMINOPHEN 1000 MG/100 ML VIAL (NON FORMULARY) IVPB ONE (22:41)
[2020-02-10 23:09] LABS: ALBUMIN 3.4 g/dl (3.4-5.0); ALK PHOS 96 U/L (45-117); ANION GAP 3 MMOL/L (8-16); BILIRUBIN,TOTAL 0.2 mg/dL (0.2-1); BLOOD UREA NITROGEN 9.2 mg/dL (7-18); CALCIUM 8.9 mg/dL (8.5-10.1); CHLORIDE 106 mmol/L (98-107); CO2 33 mmol/L (21-32); CREATININE 0.5 mg/dL (0.55-1.3); GLUCOSE,RANDOM 94 mg/dL (74-106); MAGNESIUM 1.8 mg/dL (1.8-2.4); N-TERMINAL BNP 281.6 pg/ml (5-125); POTASSIUM 4.4 mmol/L (3.5-5.1); SGOT/AST 15 U/L (15-37); SGPT/ALT 18 U/L (13-61); SODIUM 142 mmol/L (136-145); TOT PROT 7.3 g/dl (6.4-8.2)
[2020-02-10] MEDS ORDERED: ALBUTEROL SO4 2.5/IPRATROPIUM 0.5 INH SOL 3 ML VIAL.NEB. NEB ONE (23:31)
[2020-02-10] MEDS ORDERED: FUROSEMIDE 40 MG/4 ML INJECTABLE VIAL IVPUSH ONE (23:34)
[2020-02-11] MEDS ORDERED: ACETAMINOPHEN INJECTION 100 ML IVPB ONE (00:36)
[2020-02-11] MEDS ORDERED: ALBUTEROL SO4 2.5/IPRATROPIUM 0.5 INH SOL 3 ML VIAL.NEB. NEB ONE (00:36)
[2020-02-11] MEDS ORDERED: FUROSEMIDE 40 MG/4 ML INJECTABLE VIAL ONE (00:36)
[2020-02-11] MEDS ORDERED: LORazepam 2 MG/ML SDV VIAL IVPUSH ONE (02:50)
[2020-02-11] MEDS ORDERED: ALBUTEROL SO4 HFA INHALER IH PRN (03:11)
[2020-02-11] MEDS ORDERED: ACETAMINOPHEN 1000 MG/100 ML VIAL (NON FORMULARY) IVPB PRN (03:12)
[2020-02-11] MEDS ORDERED: PATIENT'S OWN MEDICATION (NON-FORMULARY) (Diclofenac Sodium [Voltaren] 2 GM) TP PRN (03:15)
[2020-02-11] MEDS ORDERED: PATIENT'S OWN MEDICATION (NON-FORMULARY) (Salmeterol/Fluticasone [Advair 250mcg/50mcg -] 1 PO PRN (03:15)
[2020-02-11] MEDS ORDERED: PATIENT'S OWN MEDICATION (NON-FORMULARY) (Oxycodone Hcl/Acetaminophen [Endocet 10-325 Mg T PO PRN (03:23)
--- OUTSIDE RECORDS SUMMARY | 2020-02-11 03:32 | XMS ---
:1960 Author Organization [facility] Care Team Providers Name Role Phone NISHITHEE STOCKTON Unavailable Unavailable Mark Unavailable [phone] BERTHA MARTINEZ Unavailable Unavailable ED STAFF PHYSICIAN Unavailable Unavailable BYRON AVERY Unavailable Unavailable DANIEL AKINO Unavailable Unavailable HHCCC Unavailable Unavailable Mayank Spaulding DPM Unavailable Unavailable AurMayank goodman DPM Unavailable Unavailable AurMayank goodman DPM Unavailable Unavailable Byron MD Unavailable Unavailable Byron MD Unavailable Unavailable Rosalba-Pickett Unavailable [phone] Rosalba-Pickett Unavailable [phone] Veselinovic Unavailable [phone] Veselinovic Unavailable [phone] Re-disclosure Warning The records that you are [...] is protected by Article 27-F of the [facility] Public Health law. If you continue you may haveaccess to information: Regarding HIV / AIDS; Provided by facilities licensed or operated by the [facility] Office of Mental Health; or Provided by the [facility] Office for People With Developmental Disabilities. If such information is present, then the following [facility] mandated warning applies: This information has been [...] law may result in a fine or group home sentence or both. A general authorization for the release of medical or other information is NOT sufficient authorization for further disclosure. Allergies and Adverse Reactions Type Description Substance Reaction Status Data Source(s ) Food allergy No Known Food No Known Food [facility] Drug allergy No Known Drug No Known Drug [facility] No Known Allergies No Known Allergies No Known Allergies eCW3 ([facility]) No Known Allergies No Known Allergies No Known Allergies eCW3 ([facility]) No Known Allergies No Known Allergies No Known Allergies eCW3 ([facility]) No Known Allergies No Known Allergies No Known Allergies eCW3 ([facility]) No Known Allergies No Known Allergies No Known Allergies eCW3 ([facility]) No Known Allergies No Known Allergies No Known Allergies eCW3 ([facility]) Propensity to Propensity to Propensity to NEXTG EN ([facility] adverse reactions adverse reactions adverse reactions [facility] (disorder) (disorder) (disorder) [place]) No Known Allergies No Known Allergies No Known Allergies eCW3 ([facility]) No Known Allergies No Known Allergies No Known Allergies eCW3 ([facility]) No Known Allergies No Known Allergies No Known Allergies eCW3 ([facility]) No Known Allergies No Known Allergies No Known Allergies eCW3 ([facility]) No Known Allergies No Known Allergies No Known Allergies eCW3 ([facility]) No Known Allergies No Known Allergies No Known Allergies eCW3 ([facility]) No Known Allergies No Known Allergies No Known Allergies eCW3 ([facility]) No Known Allergies No Known Allergies No Known Allergies eCW3 ([facility]) No Known Allergies No Known Allergies No Known Allergies eCW3 ([facility]) No Known Allergies No Known Allergies No Known Allergies eCW3 ([facility]) No Known Allergies No Known Allergies No Known Allergies eCW3 ([facility]) No Known Allergies No Known Allergies No Known Allergies eCW3 ([facility]) No Known Allergies No Known Allergies No Known Allergies eCW3 ([facility]) No Known Allergies No Known Allergies No Known Allergies eCW3 ([facility]) No Known Allergies No Known Allergies No Known Allergies eCW3 ([facility]) No Known Allergies No Known Allergies No Known Allergies eCW3 ([facility]) No Known Allergies No Known Allergies No Known Allergies eCW3 ([facility]) No Known Allergies No Known Allergies No Known Allergies eCW3 ([facility]) No Information No Information No Information eC W2 ([facility]) No Information No Information No Information eC W2 ([facility]) No Information No Information No Information eC W2 ([facility]) No Information No Information No Information eC W2 ([facility]) No Known Allergies No Known Allergies No Known Allergies eCW3 ([facility]) No Known Allergies No Known Allergies No known allergies eCW3 ([facility]) No Known Allergies No Known Allergies No known allergies eCW3 ([facility]) Encounters Encounter Providers Location Date Indications Data Source(s ) Outpatient Attender: HRHC9 02/09/2020 I ([facility] 05:03:23 PM [facility] EDT Collaborative) Patient admitted. OutpatientOFFICE/OUTPATIENT Attender: Michelle Helms 12/17/2019 NEXTGEN VISIT, [facility] 10:18:00 AM ([facility] 12/17/2019 Medical 10:18:00 AM [place]) EDT Outpatient Attender: HRHC9 12/06/2019 [facility] 12:20:08 PM [facility] Patient admitted. OutpatientOFFICE/OUTPATIENT Attender: Mental 11/20/2019 NEXTGEN VISIT, [facility] 12:13:00 PM ([facility]/20[facility] 12:13:00 PM Center) EDT Attender: Michelle Mental 09/10/2019 [facility] 12:46:00 PM ([facility] 09/10/2019 Medical 12:46:00 PM Center) EDT Attender: Michelle Mental 08/01/2019 [facility] 11:03:00 AM ([facility] 08/01/2019 Medical 11:03:00 AM Center) EDT Outpatient 07/31/2019 [facility] 12:57:00 PM [facility] Outpatient Attender: Junior Kaufman 07/31/2019 [facility] Jasson 12:54:00 PM [facility] DPMAdmitter: Junior [facility] DPMReferrer: Junior Spaulding DPM OutpatientOFFICE/OUTPATIENT Attender: [facility] 07/31/2019 [facility], [facility] 12:54:00 PM ([facility] 07/31/2019 Medical 12:54:00 PM Center) EDT Outpatient 07/31/2019 [facility] 12:00:00 AM [facility] Outpatient Attender: HRHC9 07/25/2019 [facility] 06:47:49 AM ([facility]) Patient admitted. OutpatientOFFICE/OUTPATIENT Attender: Mental 06/04/2019 NEXTGEN VISIT, [facility] 01[facility] PM ([facility] 06/04/2019 Medical 01:56:00 PM Center) EST Outpatient Attender: 05/08/2019 [facility] MICHELLE 07:54:[address] [facility] PARAMJITdmitter: [place] MICHELLE MARTINEZ Attender: Mental 05/08/2019 [facility] 07:54:00 AM ([facility] 05/08/2019 Medical 07:54:00 AM Center) [facility] 05/08/2019 [facility] 12:00:00 AM Psychiatric Medical 02/12/2019 Center 12:00:00 AM EDT OutpatientOFFICE/OUTPATIENT Attender: Mental 03/24/2019 NEXTGEN VISIT, EST [facility] Health 01:41:00 PM ([facility] 03/24/2019 Medical 01:41:00 PM Center) EST (NBillable) [place] 03/20/2019 eCW3 Lab/Outreach/Nursing/Care Primary 12:00:00 AM ([place] [facility] EST - [place] A28 03/20/2019 Health 12:00:00 AM Care) EST (NBillable) [place] 03/18/2019 eCW3 Lab/Outreach/Nursing/Care Primary 12:00:00 AM ([facility] A28 03/18/2019 Health 12:00:00 AM Care) EST Emergency Attender: SHEA EVANGELISTA 03/14/2019 [facility] 02:47:00 PM Patria Guillermo: EST - Medical STAFF ED STAFF 03/15/2019 Center PHYSICIANAdmitt 01:23:00 PM er: STAFF ED EST STAFF PHYSICIAN Patient discharged. Outpatient [facility] 03/10/2019 eCW3 ([facility] A28 12:00:00 AM [facility] 03/10/2019 Care) 12:00:00 AM EST (NBillable) [facility] 03/10/2019 eCW3 ([facility] son Lab/Outreach/Nursi Care Clinic A28 12:00:00 AM EST - [facility] ng/Care Management 03/10/2019 Care) 12:00:00 AM EST (NBillable) [facility] 02/20/2019 eCW3 ([facility] son Lab/Outreach/Nursi Care Clinic A28 12:00:00 AM EDT - [facility] ng/Care Management 02/20/2019 Care) 12:00:00 AM EDT Attender: Michelle Mental Health 02/17/2019 NEXTG EN ([facility] 03:36:00 PM EDT - [facility] 02/17/2019 Medical 03:36:00 PM EDT Center) Inpatient Attender: MAHIN EVANGELISTA 02/11/2019 [facility] ALMODOVAR 01:04:00 PM EDT - [facility] ROBERTAdmitter: 02/12/2019 MAHIN ALMODOVAR 02:30:00 AM EDT ROBERTReferrer: MAHIN STOCKTON Patient discharged. (NBillable) [facility] 02/10/2019 eCW3 ([facility] Lab/Outreach/Nursing/Care [facility] A28 12:00:00 AM [facility] EDT - Care) 02/10/2019 12:00:00 AM EDT (NBillable) [facility] 01/27/2019 eCW3 ([facility] Lab/Outreach/Nursing/Care [facility] A28 12:00:00 AM [facility] EDT - Care) 01/27/2019 12:00:00 AM EDT OutpatientOFFICE/OUTPATIENT Attender: Mental Health 01/20/2019 NEXTGEN VISIT, DEBRA Matthews MD Clinic 10:12:00 AM ([facility] 01/20/2019 Medical 10:12:00 AM Center) EDT (NBillable) [facility] 01/14/2019 eCW3 ([facility] Lab/Outreach/Nursing/Care [facility] A28 12:00:00 AM [facility] EDT - Care) 01/14/2019 12:00:00 AM EDT Outpatient [facility] 12/26/2018 eCW3 ([place] A28 12:00:00 AM [facility] EDT - Care) 12/26/2018 12:00:00 AM EDT (NBillable) [facility] 12/24/2018 eCW3 ([facility] Lab/Outreach/Nursing/Care [facility] A28 12:00:00 AM [facility] EDT - Care) 12/24/2018 12:00:00 AM EDT (NBillable) [facility] 12/19/2018 eCW3 ([facility] Lab/Outreach/Nursing/Care [facility] A28 12:00:00 AM [facility] EDT - Care) 12/19/2018 12:00:00 AM EDT Established-Intermediate [facility] 12/05/2018 eCW3 ([facility] A28 12:00:00 AM [facility] EDT - Care) 12/05/2018 12:00:00 AM EDT OutpatientOFFICE/OUTPATIENT Attender: Mental Health 12/03/2018 NEXTGEN VISIT, DEBRA [facility] 09:34:00 AM ([facility] 12/03/2018 Medical 09:34:00 AM Center) EDT Outpatient [facility] 11/18/2018 eCW3 ([facility] A28 12:00:00 AM [facility] EDT - Care) 11/18/2018 12:00:00 AM EDT (NBillable) [facility] 11/15/2018 eCW3 ([facility] son Lab/Outreach/Nursing/Care Care Clinic A28 12:00:00 AM [facility] EDT - Care) 11/15/2018 12:00:00 AM EDT Outpatient [facility] 10/24/2018 eCW3 ([facility] A28 12:00:00 AM [facility] EDT - Care) 10/24/2018 12:00:00 AM EDT OutpatientOFFICE/OUTPATIENT Attender: Mental Health 10/23/2018 [facility], [facility] 10:59:00 AM ([facility] 10/23/2018 Medical 10:59:00 AM Center) EDT Attender: Mental Health 10/11/2018 [facility] 10:43:00 AM ([facility] 10/11/2018 Medical 10:43:00 AM Center) EDT (NBillable) [facility] 10/07/2018 eCW3 ([facility] son Lab/Outreach/Nursing/Care Care Clinic A28 12:00:00 AM [facility] EDT - Care) 10/07/2018 12:00:00 AM EDT Subsequent Individual Medical [facility] 09/24/2018 eCW3 ([facility] A28 12:00:00 AM [facility] EDT - Care) 09/24/2018 12:00:00 AM EDT Outpatient [facility] 09/23/2018 eCW3 ([facility] A28 12:00:00 AM [facility] EDT - Care) 09/23/2018 12:00:00 AM EDT Subsequent Individual Medical [facility] 08/27/2018 eCW3 ([facility] A28 12:00:00 AM [facility] EDT - Care) 08/27/2018 12:00:00 AM EDT Outpatient [facility] 08/26/2018 eCW3 ([facility] A28 12:00:00 AM [facility] EDT - Care) 08/26/2018 12:00:00 AM EDT OutpatientOFFICE/OUTPATIENT Attender: Mental Health 08/16/2018 NEXTGEN VISIT, EST Michelle Clinic 09:58:00 AM ([facility] 08/16/2018 Medical 09:58:00 AM Center) EDT (NBillable) [facility] 08/09/2018 eCW3 ([facility] Lab/Outreach/Nursing/Care [facility] A28 12:00:00 AM [facility] EDT - Care) 08/09/2018 12:00:00 AM EDT Outpatient [facility] 08/01/2018 eCW3 ([place] 12:00:00 AM [facility] EDT - Care) 08/01/2018 12:00:00 AM EDT Outpatient 07/30/2018 [facility] 12:27:09 PM ([facility]) Medical Nutrition Therapy; [facility] 07/30/2018 eCW3 ([facility] Reassess each 15 min Care Clinic A28 12:00:00 AM [facility] EDT - Care) 07/30/2018 12:00:00 AM EDT Outpatient 07/26/2018 [facility] 08:04:00 AM ([facility]) (NBillable) [facility] 07/16/2018 eCW3 ([facility] Lab/Outreach/Nursing/Care [facility] A28 12:00:00 AM [facility] EDT - Care) 07/16/2018 12:00:00 AM EDT Outpatient [facility] 07/04/2018 eCW3 ([place] [facility] 12:00:00 AM [facility] EST - Care) 07/04/2018 12:00:00 AM EST (NBillable) [facility] 07/01/2018 eCW3 ([facility] Lab/Outreach/Nursing/Care [facility] A28 12:00:00 AM [facility] EST - Care) 07/01/2018 12:00:00 AM EST OutpatientOFFICE/OUTPATIENT Attender: Mental Health 06/21/2018 NEXTGEN VISIT, EST Michelle Clinic 01:17:00 PM ([facility] 06/21/2018 Medical 01:17:00 PM Center) EST Outpatient Attender: H 06/21/2018 [facility] AVERY MATTHEWS 10:05:00 AM Patria Rojasender: EST Medical [facility] : AVERY VARELA (NBillable) [place] [facility] 06/14/2018 eCW3 ([facility] Lab/Outreach/Nursing/Care [facility] A28 12:00:00 AM [facility] EST - Care) 06/14/2018 12:00:00 AM EST OutpatientOFFICE/OUTPATIENT Attender: Mental Health 04/19/2018 NEXTGEN VISIT, [facility] 09:33:00 AM ([facility] 04/19/2018 Medical 09:33:00 AM Center) [facility] 04/04/2018 eCW2 ([facility] 12:00:00 AM [facility] EST Care) [facility] 04/04/2018 eCW2 ([facility] 12:00:00 AM [facility] EST Care) [facility] 03/21/2018 eCW2 ([facility] 12:00:00 AM [facility] EST Care) [facility] 03/21/2018 eCW2 ([facility] 12:00:00 AM [facility]) [facility] 03/20/2018 eCW2 ([facility] 12:00:00 AM [facility] EST Care) [facility] 03/14/2018 eCW2 ([facility] 12:00:00 AM [facility] EST Care) [facility] 03/11/2018 eCW2 ([facility] 12:00:00 AM [facility] Care) [facility] 03/04/2018 eCW2 ([facility] 12:00:00 AM [facility] EDT Care) [facility] 02/21/2018 eCW2 ([facility] 12:00:00 AM [facility] EDT Care) [facility] 02/21/2018 eCW2 ([facility] 12:00:00 AM [facility]) [facility] 02/15/2018 eCW2 ([facility] 12:00:00 AM [facility] ED[facility] Care) [facility] 02/15/2018 eCW2 ([facility] 12:00:00 AM [facility] ED[facility] Care) [facility] 02/06/2018 eCW2 ([facility] 12:00:00 AM [facility] ED[facility] Care) [facility] 02/06/2018 eCW2 ([facility] 12:00:00 AM [facility] ED[facility] Care) [facility] 02/06/2018 eCW2 ([facility] 12:00:00 AM [facility] EDT Care) [facility] 02/04/2018 eCW2 ([facility] 12:00:00 AM [facility] ED[facility] Care) [facility] 01/31/2018 eCW2 ([facility] 12:00:00 AM [facility] EDT Care) [facility] 01/31/2018 eCW2 ([facility] 12:00:00 AM [facility] ED[facility] Care) [facility] 01/15/2018 eCW2 ([facility] 12:00:00 AM [facility] ED[facility] Care) [facility] 01/08/2018 eCW2 ([facility] 12:00:00 AM [facility] EDT Care) [facility] 12/13/2017 eCW2 ([facility] 12:00:00 AM [facility] ED[facility] Care) [facility] 12/13/2017 eCW2 ([facility] 12:00:00 AM [facility] EDT Care) [facility] 12/06/2017 eCW2 ([facility] 12:00:00 AM [facility] EDT Care) [facility] 12/03/2017 eCW2 ([facility] 12:00:00 AM [facility] EDT Care) [facility] 11/28/2017 eCW2 ([facility] 12:00:00 AM [facility] EDT Care) [facility] 11/23/2017 eCW2 ([facility] 12:00:00 AM [facility] EDT Care) [facility] 11/16/2017 eCW2 ([facility] 12:00:00 AM [facility] EDT Care) [facility] 10/31/2017 eCW2 ([facility] 12:00:00 AM [facility] EDT Care) [facility] 10/08/2017 eCW2 ([facility] 12:00:00 AM [facility] EDT Care) [facility] 10/04/2017 eCW2 ([facility] 12:00:00 AM [facility] EDT Care) [facility] 10/03/2017 eCW2 ([facility] 12:00:00 AM [facility] EDT Care) [facility] 10/02/2017 eCW2 ([facility] 12:00:00 AM [facility] EDT Care) [facility] 09/17/2017 eCW2 ([facility] 12:00:00 AM [facility] EDT Care) [facility] 09/11/2017 eCW2 ([facility] 12:00:00 AM [facility] EDT Care) [facility] 08/24/2017 eCW2 ([facility] 12:00:00 AM [facility] EDT Care) [facility] 08/24/2017 eCW2 ([facility] 12:00:00 AM [facility] EDT Care) [facility] 08/10/2017 eCW2 ([facility] 12:00:00 AM [facility] EDT Care) [facility] 08/09/2017 eCW2 ([facility] 12:00:00 AM [facility] EDT Care) [facility] 08/08/2017 eCW2 ([facility] 12:00:00 AM [facility] EDT Care) [facility] 08/02/2017 eCW2 ([facility] 12:00:00 AM [facility] EDT Care) [facility] 08/02/2017 eCW2 ([facility] 12:00:00 AM [facility] EDT Care) [facility] 07/27/2017 eCW2 ([facility] 12:00:00 AM [facility] EDT Care) [facility] 07/23/2017 eCW2 ([facility] 12:00:00 AM [facility] EDT Care) [facility] 07/20/2017 eCW2 ([facility] 12:00:00 AM [facility] EDT Care) [facility] 07/10/2017 eCW2 ([facility] 12:00:00 AM [facility] EST Care) [facility] 07/10/2017 eCW2 ([facility] 12:00:00 AM [facility] EST Care) [facility] 07/10/2017 eCW2 ([facility] 12:00:00 AM [facility] EST Care) [facility] 07/09/2017 eCW2 ([facility] 12:00:00 AM [facility] EST Care) [facility] 07/09/2017 eCW2 ([facility] 12:00:00 AM [facility] EST Care) [facility] 07/05/2017 eCW2 ([facility] 12:00:00 AM [facility] EST Care) [facility] 07/05/2017 eCW2 ([facility] 12:00:00 AM [facility] EST Care) [facility] 07/02/2017 eCW2 ([facility] 12:00:00 AM [facility] EST Care) [facility] 06/26/2017 eCW2 ([facility] 12:00:00 AM [facility] EST Care) [facility] 06/04/2017 eCW2 ([facility] 12:00:00 AM [facility] EST Care) [facility] 06/01/2017 eCW2 ([facility] 12:00:00 AM [facility] EST Care) [facility] 05/28/2017 eCW2 ([facility] 12:00:00 AM [facility] EST Care) [facility] 05/22/2017 eCW2 ([facility] 12:00:00 AM [facility] EST Care) [facility] 05/15/2017 eCW2 ([facility] 12:00:00 AM [facility] EST Care) [facility] 05/15/2017 eCW2 ([facility] 12:00:00 AM [facility] EST Care) [facility] 05/01/2017 eCW2 ([facility] 12:00:00 AM [facility] EST Care) [facility] 04/23/2017 eCW2 ([facility] 12:00:00 AM [facility] EST Care) [facility] 04/18/2017 eCW2 ([facility] 12:00:00 AM [facility] EST Care) [facility] 04/18/2017 eCW2 ([facility] 12:00:00 AM [facility] EST Care) [facility] 04/17/2017 eCW2 ([facility] 12:00:00 AM [facility] EST Care) [facility] 04/04/2017 eCW2 ([facility] 12:00:00 AM [facility] EST Care) [facility] 04/02/2017 eCW2 ([facility] 12:00:00 AM [facility] EST Care) [facility] 03/28/2017 eCW2 ([facility] 12:00:00 AM [facility] EST Care) [facility] 03/27/2017 eCW2 ([facility] 12:00:00 AM [facility] EST Care) [facility] 03/21/2017 eCW2 ([facility] 12:00:00 AM [facility] EST Care) [facility] 03/15/2017 eCW2 (Gary Shellabarger 12:00:00 AM [facility] EST Care) [facility] 03/14/2017 eCW2 (Gary Shellabarger 12:00:00 AM [facility] EST Care) [facility] 02/23/2017 eCW2 (Gary Shellabarger 12:00:00 AM [facility] EDT Care) [facility] 02/23/2017 eCW2 (Gary Shellabarger 12:00:00 AM [facility] EDT Care) [facility] 02/23/2017 eCW2 (Gary Shellabarger 12:00:00 AM [facility] EDT Care) [facility] 02/02/2017 eCW2 (Gary Shellabarger 12:00:00 AM [facility] EDT Care) [facility] 01/23/2017 eCW2 (Gary Shellabarger 12:00:00 AM [facility] EDT Care) [facility] 01/19/2017 eCW2 (Gary Shellabarger 12:00:00 AM [facility] EDT Care) [facility] 01/15/2017 eCW2 (Gary Shellabarger 12:00:00 AM [facility] EDT Care) [facility] 01/09/2017 eCW2 (Gary Shellabarger 12:00:00 AM [facility] EDT Care) [facility] 12/20/2016 eCW2 (Gary Shellabarger 12:00:00 AM [facility] EDT Care) [facility] 12/19/2016 eCW2 (Gary Shellabarger 12:00:00 AM [facility] EDT Care) [facility] 12/11/2016 eCW2 (Gary Shellabarger 12:00:00 AM [facility] EDT Care) [facility] 12/11/2016 eCW2 (Gary Shellabarger 12:00:00 AM [facility] EDT Care) [facility] 12/07/2016 eCW2 (Gary Shellabarger 12:00:00 AM [facility] EDT Care) [facility] 11/30/2016 eCW2 (Gary Shellabarger 12:00:00 AM [facility] EDT Care) [facility] 11/29/2016 eCW2 (Gary Shellabarger 12:00:00 AM [facility] EDT Care) [facility] 11/29/2016 eCW2 (Gary Shellabarger 12:00:00 AM [facility] EDT Care) [facility] 11/29/2016 eCW2 (Gary Shellabarger 12:00:00 AM [facility] EDT Care) [facility] 11/24/2016 eCW2 (Gary Shellabarger 12:00:00 AM [facility] EDT Care) [facility] 11/22/2016 eCW2 (Gary Shellabarger 12:00:00 AM [facility] EDT Care) [facility] 11/22/2016 eCW2 (Gary Shellabarger 12:00:00 AM [facility] EDT Care) [facility] 11/22/2016 eCW2 (Gary Shellabarger 12:00:00 AM [facility] EDT Care) [facility] 11/10/2016 eCW2 (Gary Shellabarger 12:00:00 AM [facility] EDT Care) [facility] 10/31/2016 eCW2 (Gary Shellabarger 12:00:00 AM [facility] EDT Care) [facility] 10/26/2016 eCW2 (Gary Shellabarger 12:00:00 AM [facility] EDT Care) [facility] 10/25/2016 eCW2 (Gary Shellabarger 12:00:00 AM [facility] EDT Care) [facility] 10/11/2016 eCW2 (Gary Shellabarger 12:00:00 AM [facility] EDT Care) [facility] 10/04/2016 eCW2 (Gary Shellabarger 12:00:00 AM [facility] EDT Care) [facility] 10/04/2016 eCW2 (Gary Shellabarger 12:00:00 AM [facility] EDT Care) [facility] 09/29/2016 eCW2 (Gary Shellabarger 12:00:00 AM [facility] EDT Care) [facility] 09/22/2016 eCW2 (Gary Shellabarger 12:00:00 AM [facility] EDT Care) [facility] 09/05/2016 eCW2 (Gary Shellabarger 12:00:00 AM [facility] EDT Care) [facility] 09/04/2016 eCW2 (Gary Shellabarger 12:00:00 AM [facility] EDT Care) [facility] 08/28/2016 eCW2 (Gary Shellabarger 12:00:00 AM [facility] EDT Care) [facility] 08/28/2016 eCW2 (Gary Shellabarger 12:00:00 AM [facility] EDT Care) [facility] 08/15/2016 eCW2 (Gary Shellabarger 12:00:00 AM [facility] EDT Care) [facility] 08/07/2016 eCW2 (Gary Shellabarger 12:00:00 AM [facility] EDT Care) [facility] 08/04/2016 eCW2 (Gary Shellabarger 12:00:00 AM [facility] EDT Care) [facility] 08/04/2016 eCW2 (Gary Shellabarger 12:00:00 AM [facility] EDT Care) [facility] 08/02/2016 eCW2 (Gayr Shellabarger 12:00:00 AM [facility] EDT Care) [facility] 08/02/2016 eCW2 (Gary Shellabarger 12:00:00 AM [facility] EDT Care) [facility] 07/31/2016 eCW2 (Gary Shellabarger 12:00:00 AM [facility] EDT Care) [facility] 07/28/2016 eCW2 (Gary Shellabarger 12:00:00 AM [facility] EDT Care) [facility] 07/28/2016 eCW2 (Gary Shellabarger 12:00:00 AM [facility] EDT Care) [facility] 07/27/2016 eCW2 (Gary Shellabarger 12:00:00 AM [facility] EDT Care) [facility] 07/27/2016 eCW2 (Gary Shellabarger 12:00:00 AM [facility] EDT Care) [facility] 07/20/2016 eCW2 (Gary Shellabarger 12:00:00 AM [facility] EDT Care) [facility] 07/20/2016 eCW2 (Gary Shellabarger 12:00:00 AM [facility] EDT Care) [facility] 07/17/2016 eCW2 (Gary Shellabarger 12:00:00 AM [facility] EDT Care) [facility] 07/12/2016 eCW2 (Gary Shellabarger 12:00:00 AM [facility] EST Care) [facility] 07/11/2016 eCW2 (Gary Shellabarger 12:00:00 AM [facility] EST Care) [facility] 07/10/2016 eCW2 (Gary Shellabarger 12:00:00 AM [facility] EST Care) [facility] 07/10/2016 eCW2 (Gary Shellabarger 12:00:00 AM [facility] EST Care) [facility] 07/10/2016 eCW2 (Gary Shellabarger 12:00:00 AM [facility] EST Care) [facility] 07/04/2016 eCW2 (Gary Shellabarger 12:00:00 AM [facility] EST Care) [facility] 06/29/2016 eCW2 (Gary Shellabarger 12:00:00 AM [facility] EST Care) [facility] 06/29/2016 eCW2 (Gary Shellabarger 12:00:00 AM [facility] EST Care) [facility] 06/28/2016 eCW2 (Gary Shellabarger 12:00:00 AM [facility] EST Care) [facility] 06/09/2016 eCW2 (Gary Shellabarger 12:00:00 AM [facility] EST Care) [facility] 06/09/2016 eCW2 (Gary Shellabarger 12:00:00 AM [facility] EST Care) [facility] 05/26/2016 eCW2 (Gary Shellabarger 12:00:00 AM [facility] EST Care) [facility] 05/24/2016 eCW2 (Gary Shellabarger 12:00:00 AM [facility] EST Care) [facility] 05/24/2016 eCW2 (Gary Shellabarger 12:00:00 AM [facility] EST Care) [facility] 05/16/2016 eCW2 (Gary Shellabarger 12:00:00 AM [facility] EST Care) [facility] 05/02/2016 eCW2 (Gary Shellabarger 12:00:00 AM [facility] EST Care) [facility] 04/27/2016 eCW2 (Gary Shellabarger 12:00:00 AM [facility] EST Care) [facility] 04/27/2016 eCW2 (Gary Shellabarger 12:00:00 AM [facility] EST Care) [facility] 04/27/2016 eCW2 (Gary Shellabarger 12:00:00 AM [facility] EST Care) [facility] 04/24/2016 eCW2 (Gary Shellabarger 12:00:00 AM [facility] EST Care) [facility] 04/24/2016 eCW2 (Gary Shellabarger 12:00:00 AM [facility] EST Care) [facility] 04/19/2016 eCW2 (Gary Shellabarger 12:00:00 AM [facility] EST Care) [facility] 04/17/2016 eCW2 (Gary Shellabarger 12:00:00 AM [facility] EST Care) [facility] 04/17/2016 eCW2 (Gary Shellabarger 12:00:00 AM [facility] EST Care) [facility] 04/12/2016 eCW2 (Gary Shellabarger 12:00:00 AM [facility] EST Care) [facility] 04/10/2016 eCW2 (Gary Shellabarger 12:00:00 AM [facility] EST Care) [facility] 03/27/2016 eCW2 (Gary Shellabarger 12:00:00 AM [facility] EST Care) [facility] 03/15/2016 eCW2 (Gary Shellabarger 12:00:00 AM [facility] EST Care) [facility] 03/13/2016 eCW2 (Gary Shellabarger 12:00:00 AM [facility] EST Care) [facility] 03/02/2016 eCW2 (Gary Shellabarger 12:00:00 AM [facility] EDT Care) [facility] 02/22/2016 eCW2 (Gary Shellabarger 12:00:00 AM [facility] EDT Care) [facility] 02/16/2016 eCW2 (Gary Shellabarger 12:00:00 AM [facility] EDT Care) [facility] 02/10/2016 eCW2 (Gary Shellabarger 12:00:00 AM [facility] EDT Care) [facility] 02/10/2016 eCW2 (Gary Shellabarger 12:00:00 AM [facility] EDT Care) [facility] 02/10/2016 eCW2 (Gary Shellabarger 12:00:00 AM [facility] EDT Care) [facility] 02/09/2016 eCW2 (Gary Shellabarger 12:00:00 AM [facility] EDT Care) [facility] 02/08/2016 eCW2 (Gary Shellabarger 12:00:00 AM [facility] EDT Care) [facility] 02/08/2016 eCW2 (Gary Shellabarger 12:00:00 AM [facility] EDT Care) [facility] 01/31/2016 eCW2 (Gary Shellabarger 12:00:00 AM [facility] EDT Care) [facility] 01/31/2016 eCW2 (Gary Shellabarger 12:00:00 AM [facility] EDT Care) [facility] 01/20/2016 eCW2 (Gary Shellabarger 12:00:00 AM [facility] EDT Care) [facility] 01/20/2016 eCW2 (Gary Shellabarger 12:00:00 AM [facility] EDT Care) [facility] 01/20/2016 eCW2 (Gary Shellabarger 12:00:00 AM [facility] EDT Care) [facility] 01/19/2016 eCW2 (Gary Shellabarger 12:00:00 AM [facility] EDT Care) [facility] 01/14/2016 eCW2 (Gary Shellabarger 12:00:00 AM [facility] EDT Care) [facility] 01/14/2016 eCW2 (Gary Shellabarger 12:00:00 AM [facility] EDT Care) [facility] 01/13/2016 eCW2 (Gary Shellabarger 12:00:00 AM [facility] EDT Care) [facility] 01/12/2016 eCW2 (Gary Shellabarger 12:00:00 AM [facility] EDT Care) [facility] 01/12/2016 eCW2 (Gary Shellabarger 12:00:00 AM [facility] EDT Care) [facility] 12/30/2015 eCW2 (Gary Shellabarger 12:00:00 AM [facility] EDT Care) [facility] 12/27/2015 eCW2 (Gary Shellabarger 12:00:00 AM [facility] EDT Care) [facility] 12/27/2015 eCW2 (Gary Shellabarger 12:00:00 AM [facility] EDT Care) [facility] 12/24/2015 eCW2 (Gary Shellabarger 12:00:00 AM [facility] EDT Care) [facility] 12/23/2015 eCW2 (Gary Shellabarger 12:00:00 AM [facility] EDT Care) [facility] 12/23/2015 eCW2 (Gary Shellabarger 12:00:00 AM [facility] EDT Care) [facility] 12/23/2015 eCW2 (Gary Shellabarger 12:00:00 AM [facility] EDT Care) [facility] 12/23/2015 eCW2 (Gary Shellabarger 12:00:00 AM [facility] EDT Care) [facility] 12/21/2015 eCW2 (Gary Shellabarger 12:00:00 AM [facility] EDT Care) [facility] 12/20/2015 eCW2 (Gary Shellabarger 12:00:00 AM [facility] EDT Care) [facility] 12/15/2015 eCW2 (Gary Shellabarger 12:00:00 AM [facility] EDT Care) [facility] 12/15/2015 eCW2 (Gary Shellabarger 12:00:00 AM [facility] EDT Care) [facility] 12/13/2015 eCW2 (Gary Shellabarger 12:00:00 AM [facility] EDT Care) [facility] 12/13/2015 eCW2 (Gary Shellabarger 12:00:00 AM [facility] EDT Care) [facility] 12/10/2015 eCW2 (Gary Shellabarger 12:00:00 AM [facility] EDT Care) [facility] 12/10/2015 eCW2 (Gary Shellabarger 12:00:00 AM [facility] EDT Care) [facility] 12/09/2015 eCW2 (Gary Shellabarger 12:00:00 AM [facility] EDT Care) [facility] 12/09/2015 eCW2 (Gary Shellabarger 12:00:00 AM [facility] EDT Care) [facility] 12/06/2015 eCW2 (Gary Shellabarger 12:00:00 AM [facility] EDT Care) [facility] 11/11/2015 eCW2 (Gary Shellabarger 12:00:00 AM [facility] EDT Care) [facility] 11/03/2015 eCW2 (Gary Shellabarger 12:00:00 AM [facility] EDT Care) [facility] 11/03/2015 eCW2 (Gary Shellabarger 12:00:00 AM [facility] EDT Care) [facility] 11/02/2015 eCW2 (Gary Shellabarger 12:00:00 AM [facility] EDT Care) [facility] 11/02/2015 eCW2 (Gary Shellabarger 12:00:00 AM [facility] EDT Care) [facility] 11/02/2015 eCW2 (Gary Shellabarger 12:00:00 AM [facility] EDT Care) [facility] 11/01/2015 eCW2 (Gary Shellabarger 12:00:00 AM [facility] EDT Care) [facility] 10/29/2015 eCW2 (Gary Shellabarger 12:00:00 AM [facility] EDT Care) [facility] 10/29/2015 eCW2 (Gary Shellabarger 12:00:00 AM [facility] EDT Care) [facility] 10/27/2015 eCW2 (Gary Shellabarger 12:00:00 AM [facility] EDT Care) [facility] 10/27/2015 eCW2 (Gary Shellabarger 12:00:00 AM [facility] EDT Care) [facility] 10/25/2015 eCW2 (Gary Shellabarger 12:00:00 AM [facility] EDT Care) [facility] 10/19/2015 eCW2 (Gary Shellabarger 12:00:00 AM [facility] EDT Care) [facility] 10/19/2015 eCW2 (Gary Shellabarger 12:00:00 AM [facility] EDT Care) [facility] 10/11/2015 eCW2 (Gary Shellabarger 12:00:00 AM [facility] EDT Care) [facility] 10/07/2015 eCW2 (Gary Shellabarger 12:00:00 AM [facility] EDT Care) [facility] 10/07/2015 eCW2 (Gary Shellabarger 12:00:00 AM [facility] EDT Care) [facility] 09/30/2015 eCW2 (Gary Shellabarger 12:00:00 AM [facility] EDT Care) [facility] 09/15/2015 eCW2 (Gary Shellabarger 12:00:00 AM [facility] EDT Care) [facility] 09/09/2015 eCW2 (Gary Shellabarger 12:00:00 AM [facility] EDT Care) [facility] 09/09/2015 eCW2 (Gary Shellabarger 12:00:00 AM [facility] EDT Care) [facility] 09/09/2015 eCW2 (Gary Shellabarger 12:00:00 AM [facility] EDT Care) [facility] 09/07/2015 eCW2 (Gary Shellabarger 12:00:00 AM [facility] EDT Care) [facility] 08/23/2015 eCW2 (Gary Shellabarger 12:00:00 AM [facility] EDT Care) [facility] 08/12/2015 eCW2 (Gary Shellabarger 12:00:00 AM [facility] EDT Care) [facility] 08/05/2015 eCW2 (Gary Shellabarger 12:00:00 AM [facility] EDT Care) [facility] 08/05/2015 eCW2 (Gary Shellabarger 12:00:00 AM [facility] EDT Care) [facility] 07/15/2015 eCW2 (Gary Shellabarger 12:00:00 AM [facility] EST Care) [facility] 07/15/2015 eCW2 (Gary Shellabarger 12:00:00 AM [facility] EST Care) [facility] 06/17/2015 eCW2 (Gary Shellabarger 12:00:00 AM [facility] EST Care) [facility] 06/11/2015 eCW2 (Gary Shellabarger 12:00:00 AM [facility] EST Care) [facility] 06/11/2015 eCW2 (Gary Shellabarger 12:00:00 AM [facility] EST Care) [facility] 06/09/2015 eCW2 (Gary Shellabarger 12:00:00 AM [facility] EST Care) [facility] 06/09/2015 eCW2 (Gary Shellabarger 12:00:00 AM [facility] EST Care) [facility] 05/18/2015 eCW2 (Gary Shellabarger 12:00:00 AM [facility] EST Care) [facility] 05/17/2015 eCW2 (Gary Shellabarger 12:00:00 AM [facility] EST Care) [facility] 04/20/2015 eCW2 (Gary Shellabarger 12:00:00 AM [facility] EST Care) [facility] 04/14/2015 eCW2 (Gary Shellabarger 12:00:00 AM [facility] EST Care) [facility] 04/14/2015 eCW2 (Gary Shellabarger 12:00:00 AM [facility] EST Care) [facility] 04/14/2015 eCW2 (Gary Shellabarger 12:00:00 AM [facility] EST Care) [facility] 03/23/2015 eCW2 (Gary Shellabarger 12:00:00 AM [facility] EST Care) [facility] 03/23/2015 eCW2 (Gary Shellabarger 12:00:00 AM [facility] EST Care) [facility] 03/23/2015 eCW2 (Gary Shellabarger 12:00:00 AM [facility] EST Care) [facility] 03/17/2015 eCW2 (Gary Shellabarger 12:00:00 AM [facility] EST Care) [facility] 01/28/2015 eCW2 (Gary Shellabarger 12:00:00 AM [facility] EDT Care) [facility] 01/14/2015 eCW2 (Gary Shellabarger 12:00:00 AM [facility] EDT Care) [facility] 01/14/2015 eCW2 (Gary Shellabarger 12:00:00 AM [facility] EDT Care) [facility] 01/13/2015 eCW2 (Gary Shellabarger 12:00:00 AM [facility] EDT Care) [facility] 01/08/2015 eCW2 (Gary Shellabarger 12:00:00 AM [facility] EDT Care) [facility] 01/06/2015 eCW2 (Gary Shellabarger 12:00:00 AM [facility] EDT Care) [facility] 12/21/2014 eCW2 (Gary Shellabarger 12:00:00 AM [facility] EDT Care) [facility] 10/12/2014 eCW2 (Gary Shellabarger 12:00:00 AM [facility] EDT Care) [facility] 10/05/2014 eCW2 (Gary Shellabarger 12:00:00 AM [facility] EDT Care) [facility] 09/30/2014 eCW2 (Gary Shellabarger 12:00:00 AM [facility] EDT Care) [facility] 09/30/2014 eCW2 (Gary Shellabarger 12:00:00 AM [facility] EDT Care) [facility] 09/23/2014 eCW2 (Gary Shellabarger 12:00:00 AM [facility] EDT Care) [facility] 09/18/2014 eCW2 (Gary Shellabarger 12:00:00 AM [facility] EDT Care) [facility] 09/14/2014 eCW2 (Gary Shellabarger 12:00:00 AM [facility] EDT Care) [facility] 08/19/2014 eCW2 (Gary Shellabarger 12:00:00 AM [facility] EDT Care) [facility] 08/19/2014 eCW2 (Gary Shellabarger 12:00:00 AM [facility] EDT Care) [facility] 08/18/2014 eCW2 (Gary Shellabarger 12:00:00 AM [facility] EDT Care) [facility] 08/17/2014 eCW2 (Gary Shellabarger 12:00:00 AM [facility] EDT Care) [facility] 07/30/2014 eCW2 (Gary Shellabarger 12:00:00 AM [facility] Care[facility] 07/17/2014 eCW2 (Gary Shellabarger 12:00:00 AM [facility] Care) [facility] 07/06/2014 eCW2 (Gary Shellabarger 12:00:00 AM [facility] EST Care) [facility] 06/29/2014 eCW2 (Gary Shellabarger 12:00:00 AM [facility] Care) [facility] 06/29/2014 eCW2 (Gary Shellabarger 12:00:00 AM [facility] Care) [facility] 06/29/2014 eCW2 (Gary Shellabarger 12:00:00 AM [facility] 06/25/2014 eCW2 (Gary Shellabarger 12:00:00 AM [facility]) [facility] 06/24/2014 eCW2 (Gary Shellabarger 12:00:00 AM [facility] 06/24/2014 eCW2 (Gary Shellabarger 12:00:00 AM [facility] EST Care) [facility] 06/24/2014 eCW2 (Gary Shellabarger 12:00:00 AM [facility] EST Care) [facility] 06/24/2014 eCW2 (Gary Shellabarger 12:00:00 AM [facility] 06/18/2014 eCW2 (Gary Shellabarger 12:00:00 AM [facility] 06/09/2014 eCW2 (Gary Shellabarger 12:00:00 AM [facility] Care) [facility] 05/22/2014 eCW2 (Gary Shellabarger 12:00:00 AM [facility] Care) [facility] 05/20/2014 eCW2 (Gary Shellabarger 12:00:00 AM [facility] EST Care) [facility] 05/05/2014 eC W2 (Gary Shellabarger 12:00:00 AM [facility] Care) [facility] 04/14/2014 eCW2 (Gary Shellabarger 12:00:00 AM [facility] EST Care) [facility] 03/10/2014 eCW2 (Gary Shellabarger 12:00:00 AM [facility] EST Care) [facility] 03/09/2014 eCW2 (Gary Shellabarger 12:00:00 AM [facility] EST Care) [facility] 03/09/2014 eCW2 (Gary Shellabarger 12:00:00 AM [facility] EST Care) [facility] 02/27/2014 eCW2 (Gary Shellabarger 12:00:00 AM [facility] EDT Care) [facility] 02/04/2014 eCW2 (Gary Shellabarger 12:00:00 AM [facility] EDT Care) [facility] 01/29/2014 eCW2 (Gary Shellabarger 12:00:00 AM [facility] EDT Care) [facility] 01/29/2014 eCW2 (Gary Shellabarger 12:00:00 AM [facility] EDT Care) [facility] 01/28/2014 eCW2 (Gary Shellabarger 12:00:00 AM [facility] EDT Care) [facility] 01/26/2014 eCW2 (Gary Shellabarger 12:00:00 AM [facility] EDT Care) [facility] 01/19/2014 eCW2 (Gary Shellabarger 12:00:00 AM [facility] EDT Care) [facility] 01/16/2014 eCW2 (Gary Shellabarger 12:00:00 AM [facility] EDT Care) [facility] 01/08/2014 eCW2 (Gary Shellabarger 12:00:00 AM [facility] EDT Care) [facility] 01/08/2014 eCW2 (Gary Shellabarger 12:00:00 AM [facility] EDT Care) [facility] 12/16/2013 eCW2 (Gary Shellabarger 12:00:00 AM [facility] EDT Care) [facility] 12/16/2013 eCW2 (Gary Shellabarger 12:00:00 AM [facility] EDT Care) [facility] 12/03/2013 eCW2 (Gary Shellabarger 12:00:00 AM [facility] EDT Care) [facility] 11/26/2013 eCW2 (Gary Shellabarger 12:00:00 AM [facility] EDT Care) [facility] 11/19/2013 eCW2 (Gary Shellabarger 12:00:00 AM [facility] EDT Care) [facility] 11/01/2013 eCW2 (Gary Shellabarger 12:00:00 AM [facility] EDT Care) [facility] 10/31/2013 eCW2 (Gary Shellabarger 12:00:00 AM [facility] EDT Care) [facility] 10/31/2013 eCW2 (Gary Shellabarger 12:00:00 AM [facility] EDT Care) [facility] 10/31/2013 eCW2 (Gary Shellabarger 12:00:00 AM [facility] EDT Care) [facility] 10/31/2013 eCW2 (Gary Shellabarger 12:00:00 AM [facility] EDT Care) [facility] 10/20/2013 eCW2 (Gary Shellabarger 12:00:00 AM [facility] EDT Care) [facility] 10/20/2013 eCW2 (Gary Shellabarger 12:00:00 AM [facility] EDT Care) [facility] 10/03/2013 eCW2 (Gary Shellabarger 12:00:00 AM [facility] EDT Care) [facility] 10/03/2013 eCW2 (Gary Shellabarger 12:00:00 AM [facility] EDT Care) [facility] 10/02/2013 eCW2 (Gary Shellabarger 12:00:00 AM [facility] EDT Care) [facility] 10/02/2013 eCW2 (Gary Shellabarger 12:00:00 AM [facility] EDT Care) [facility] 10/01/2013 eCW2 (Gary Shellabarger 12:00:00 AM [facility] EDT Care) [facility] 09/18/2013 eCW2 (Gary Shellabarger 12:00:00 AM [facility] EDT Care) [facility] 09/04/2013 eCW2 (Gary Shellabarger 12:00:00 AM [facility] EDT Care) [facility] 08/29/2013 eCW2 (Gary Shellabarger 12:00:00 AM [facility] EDT Care) [facility] 08/27/2013 eCW2 (Gary Shellabarger 12:00:00 AM [facility] EDT Care) [facility] 08/26/2013 eCW2 (Gary Shellabarger 12:00:00 AM [facility] EDT Care) [facility] 08/21/2013 eCW2 (Gary Shellabarger 12:00:00 AM [facility] EDT Care) [facility] 08/21/2013 eCW2 (Gary Shellabarger 12:00:00 AM [facility] EDT Care) [facility] 08/20/2013 eCW2 (Gary Shellabarger 12:00:00 AM [facility] EDT Care) [facility] 08/19/2013 eCW2 (Gary Shellabarger 12:00:00 AM [facility] EDT Care) [facility] 08/19/2013 eCW2 (Gary Shellabarger 12:00:00 AM [facility] EDT Care) [facility] 08/18/2013 eCW2 (Gary Shellabarger 12:00:00 AM [facility] EDT Care) [facility] 08/13/2013 eCW2 (Gary Shellabarger 12:00:00 AM [facility] EDT Care) [facility] 08/06/2013 eCW2 (Gary Shellabarger 12:00:00 AM [facility] EDT Care) [facility] 08/05/2013 eCW2 (Gary Shellabarger 12:00:00 AM [facility] EDT Care) [facility] 08/01/2013 eCW2 (Gary Shellabarger 12:00:00 AM [facility] EDT Care) [facility] 08/01/2013 eCW2 (Gary Shellabarger 12:00:00 AM [facility] EDT Care) [facility] 07/29/2013 eCW2 (Gary Shellabarger 12:00:00 AM [facility] EDT Care) [facility] 07/16/2013 eCW2 (Gary Shellabarger 12:00:00 AM [facility] EDT Care) [facility] 07/16/2013 eCW2 (Gary Shellabarger 12:00:00 AM [facility] EDT Care) [facility] 07/10/2013 eCW2 (Gary Shellabarger 12:00:00 AM [facility] EST Care) [facility] 07/10/2013 eCW2 (Gary Shellabarger 12:00:00 AM [facility] EST Care) [facility] 06/25/2013 eCW2 (Gary Shellabarger 12:00:00 AM [facility] EST Care) [facility] 06/06/2013 eCW2 (Gary Shellabarger 12:00:00 AM [facility] EST Care) [facility] 05/23/2013 eCW2 (Gary Shellabarger 12:00:00 AM [facility] EST Care) [facility] 05/23/2013 eCW2 (Gary Shellabarger 12:00:00 AM [facility] EST Care) [facility] 05/22/2013 eCW2 (Gary Shellabarger 12:00:00 AM [facility] EST Care) [facility] 05/15/2013 eCW2 (Gary Shellabarger 12:00:00 AM [facility] EST Care) [facility] 05/15/2013 eCW2 (Gary Shellabarger 12:00:00 AM [facility] EST Care) [facility] 04/16/2013 eCW2 (Gary Shellabarger 12:00:00 AM [facility] EST Care) [facility] 03/11/2013 eCW2 (Gary Shellabarger 12:00:00 AM [facility] EST Care) [facility] 03/11/2013 eCW2 (Gary Shellabarger 12:00:00 AM [facility] EST Care) [facility] 03/04/2013 eCW2 (Gary Shellabarger 12:00:00 AM [facility] EDT Care) [facility] 01/16/2013 eCW2 (Gary Shellabarger 12:00:00 AM [facility] EDT Care) [facility] 01/09/2013 eCW2 (Gary Shellabarger 12:00:00 AM [facility] EDT Care) [facility] 01/09/2013 eCW2 (Gary Shellabarger 12:00:00 AM [facility] EDT Care) [facility] 11/22/2012 eCW2 (Gary Shellabarger 12:00:00 AM [facility] EDT Care) [facility] 11/22/2012 eCW2 (Gary Shellabarger 12:00:00 AM [facility] EDT Care) [facility] 11/08/2012 eCW2 (Gary Shellabarger 12:00:00 AM [facility] EDT Care) [facility] 11/08/2012 eCW2 (Gary Shellabarger 12:00:00 AM [facility] EDT Care) [facility] 10/10/2012 eCW2 (Gary Shellabarger 12:00:00 AM [facility] EDT Care) [facility] 10/03/2012 eCW2 (Gary Shellabarger 12:00:00 AM [facility] EDT Care) [facility] 09/26/2012 eCW2 (Gary Shellabarger 12:00:00 AM [facility] EDT Care) [facility] 09/04/2012 eCW2 (Gary Shellabarger 12:00:00 AM [facility] EDT Care) [facility] 08/05/2012 eCW2 (Gary Shellabarger 12:00:00 AM [facility] EDT Care) [facility] 08/02/2012 eCW2 (Gary Shellabarger 12:00:00 AM [facility] EDT Care) [facility] 08/02/2012 eCW2 (Gary Shellabarger 12:00:00 AM [facility] EDT Care) [facility] 07/31/2012 eCW2 (Gary Shellabarger 12:00:00 AM [facility] EDT Care) [facility] 07/31/2012 eCW2 (Gary Shellabarger 12:00:00 AM [facility] EDT Care) [facility] 07/23/2012 eCW2 (Gary Shellabarger 12:00:00 AM [facility] EDT Care) [facility] 06/27/2012 eCW2 (Gary Shellabarger 12:00:00 AM [facility] EST Care) [facility] 06/27/2012 eCW2 (Gary Shellabarger 12:00:00 AM [facility] EST Care) [facility] 06/27/2012 eCW2 (Gary Shellabarger 12:00:00 AM [facility] EST Care) [facility] 05/28/2012 eCW2 (Gary Shellabarger 12:00:00 AM [facility] EST Care) [facility] 05/17/2012 eCW2 (Gary Shellabarger 12:00:00 AM [facility] EST Care) [facility] 04/03/2012 eCW2 (Gary Shellabarger 12:00:00 AM [facility] EST Care) [facility] 01/15/2012 eCW2 (Gray Shellabarger 12:00:00 AM [facility] EDT Care) [facility] 09/25/2011 eCW2 (Gary Shellabarger 12:00:00 AM [facility] EDT Care) [facility] 09/25/2011 eCW2 (Gary Shellabarger 12:00:00 AM [facility] EDT Care) [facility] 08/21/2011 eCW2 (Gary Shellabarger 12:00:00 AM [facility] EDT Care) [facility] 08/15/2011 eCW2 (Gary Shellabarger 12:00:00 AM [facility] EDT Care) [facility] 07/31/2011 eCW2 (Gary Shellabarger 12:00:00 AM [facility] EDT Care) [facility] 07/17/2011 eCW2 (Gary Shellabarger 12:00:00 AM [facility]T Care) [facility] 07/11/2011 eCW2 (Gary Shellabarger 12:00:00 AM [facility] EST Care) [facility] 06/16/2011 eCW2 (Gary Shellabarger 12:00:00 AM [facility] EST Care) [facility] 04/19/2011 eCW2 (Gary Shellabarger 12:00:00 AM [facility] EST Care) [facility] 03/10/2011 eCW2 (Gary Shellabarger 12:00:00 AM [facility] EDT Care) [facility] 03/10/2011 eCW2 (Gary Shellabarger 12:00:00 AM [facility] EDT Care) [facility] 02/28/2011 eCW2 (Gary Shellabarger 12:00:00 AM [facility] EDT Care) [facility] 02/09/2011 eCW2 (Gary Shellabarger 12:00:00 AM [facility] EDT Care) [facility] 01/06/2011 eCW2 (Gary Shellabarger 12:00:00 AM [facility] EDT Care) [facility] 11/21/2010 eCW2 (Gary Shellabarger 12:00:00 AM [facility] EDT Care) [facility] 11/16/2010 eCW2 (Gary Shellabarger 12:00:00 AM [facility] EDT Care) [facility] 09/28/2010 eCW2 (Gary Shellabarger 12:00:00 AM [facility] EDT Care) [facility] 09/26/2010 eCW2 (Gary Shellabarger 12:00:00 AM [facility] EDT Care) [facility] 08/08/2010 eCW2 (Gary Shellabarger 12:00:00 AM [facility] EDT Care) [facility] 07/27/2010 eCW2 (Gary Shellabarger 12:00:00 AM [facility] EDT Care) [facility] 07/25/2010 eCW2 (Gary Shellabarger 12:00:00 AM [facility] EDT Care) [facility] 07/25/2010 eCW2 (Gary Shellabarger 12:00:00 AM [facility] EDT Care) [facility] 07/20/2010 eCW2 (Gary Shellabarger 12:00:00 AM [facility] EDT Care) [facility] 06/13/2010 eCW2 (Gary Shellabarger 12:00:00 AM [facility] EST Care) [facility] 06/13/2010 eCW2 (Gary Shellabarger 12:00:00 AM [facility] EST Care) [facility] 04/06/2010 eCW2 (Gary Shellabarger 12:00:00 AM [facility] EST Care) [facility] 03/16/2010 eCW2 (Gary Shellabarger 12:00:00 AM [facility] EST Care) [facility] 03/16/2010 eCW2 (Gary Shellabarger 12:00:00 AM [facility] EST Care) [facility] 03/14/2010 eCW2 (Gary Shellabarger 12:00:00 AM [facility] EST Care) [facility] 01/26/2010 eCW2 (Gary Shellabarger 12:00:00 AM [facility] EDT Care) [facility] 12/17/2009 eCW2 (Gary Shellabarger 12:00:00 AM [facility] EDT Care) [facility] 08/19/2009 eCW2 (Gary Shellabarger 12:00:00 AM [facility] EDT Care) [facility] 08/19/2009 eCW2 (Gary Shellabarger 12:00:00 AM [facility] EDT Care) [facility] 06/22/2009 eCW2 (Gary Shellabarger 12:00:00 AM [facility] EST Care) [facility] 06/11/2009 eCW2 (Gary Shellabarger 12:00:00 AM [facility] EST Care) [facility] 06/10/2009 eCW2 (Gary Shellabarger 12:00:00 AM [facility] EST Care) [facility] 05/31/2009 eCW2 (Gary Shellabarger 12:00:00 AM [facility] EST Care) [facility] 05/14/2009 eCW2 (Gary Shellabarger 12:00:00 AM [facility] EST Care) [facility] 04/23/2009 eCW2 (Gary Shellabarger 12:00:00 AM [facility] EST Care) [facility] 04/20/2009 eCW2 (Gary Shellabarger 12:00:00 AM [facility] EST Care) [facility] 04/14/2009 eCW2 (Gary Shellabarger 12:00:00 AM [facility] EST Care) [facility] 04/14/2009 eCW2 (Gary Shellabarger 12:00:00 AM [facility] EST Care) [facility] 02/16/2009 eCW2 (Gary Shellabarger 12:00:00 AM [facility] EDT Care) [facility] 02/08/2009 eCW2 (Gary Shellabarger 12:00:00 AM [facility] EDT Care) [facility] 02/08/2009 eCW2 (Gary Shellabarger 12:00:00 AM [facility] EDT Care) [facility] 01/22/2009 eCW2 (Gary Shellabarger 12:00:00 AM [facility] EDT Care) [facility] 12/03/2008 eCW2 (Gary Shellabarger 12:00:00 AM [facility] EDT Care) [facility] 11/25/2008 eCW2 (Gary Shellabarger 12:00:00 [facility]T Care) [facility] 11/10/2008 eCW2 (Gary Shellabarger 12:00:00 AM [facility] EDT Care) [facility] 10/26/2008 eCW2 (Gary Shellabarger 12:00:00 AM [facility] EDT Care) [facility] 10/23/2008 eCW2 (Gary Shellabarger 12:00:00 AM [facility] EDT Care) [facility] 10/19/2008 eCW2 (Gary Shellabarger 12:00:00 AM [facility] EDT Care) [facility] 10/15/2008 eCW2 (Gary Shellabarger 12:00:00 AM [facility] Care) [facility] 10/09/2008 eCW2 (Gary Shellabarger 12:00:00 AM [facility]) [facility] 10/08/2008 eCW2 (Gary Shellabarger 12:00:00 AM [facility] EDT Care) [facility] 10/05/2008 eCW2 (Gary Shellabarger 12:00:00 AM [facility] EDT Care) [facility] 10/01/2008 eCW2 (Gary Shellabarger 12:00:00 AM [facility] Care) [facility] 09/01/2008 eCW2 (Gary Shellabarger 12:00:00 AM [facility] ED[facility] Care) Immunizations Vaccine Date Status Description Data Source(s) New in 2011. IIV4 02/02/2020 completed eCW3 ([facility] 03:55:00 PM EDT Health Care) New in 2011. IIV4 02/02/2020 completed eCW3 ([facility] 03:55:00 PM EDT Health Care) New in 2011. IIV4 02/02/2020 completed eCW3 ([facility] 03:55:00 PM EDT Health Care) Note that this vaccine 03/04/2018 completed eCW3 ([place] [facility] name has changed. See 08:50:00 AM EDT [facility]th Care) also Td (adult). It is not adsorbed. Note that this vaccine 03/04/2018 completed eCW3 ([facility] name has changed. See 08:50:00 AM EDT [facility]) also Td (adult). It is not adsorbed. Note that this vaccine 03/04/2018 completed eCW3 ([facility] name has changed. See 08:50:00 AM EDT [facility]) also Td (adult). It is not adsorbed. Note that this vaccine 03/04/2018 completed eCW3 ([facility] name has changed. See 08:50:00 AM EDT [facility] Care) also Td (adult). It is not adsorbed. Note that this vaccine 03/04/2018 completed eCW3 ([facility] name has changed. See 08:50:00 AM EDT [facility] Care) also Td (adult). It is not adsorbed. Note that this vaccine 03/04/2018 completed eCW3 ([place] [facility] name has changed. See 08:50:00 AM EDT [facility]th Care) also Td (adult). It is not adsorbed. Note that this vaccine 03/04/2018 completed eCW3 ([facility] name has changed. See 08:50:00 AM [...] one of two 02/23/2017 completed eCW 3 ([facility] codes replacing CVX 15, 10:51:00 AM EDT [facility]) which is being retired. IIV3. This is one of two 02/23/2017 completed eCW 3 ([facility] codes replacing CVX 15, 10:51:00 AM EDT [facility]) which is being retired. IIV3. This is one of two 02/23/2017 completed eCW 3 ([facility] codes replacing CVX 15, 10:51:00 AM EDT [facility]) which is being retired. IIV3. This is one of two 02/23/2017 completed eCW 3 ([facility] codes replacing CVX 15, 10:51:00 AM EDT [facility]) which is being retired. IIV3. This is one of two 02/23/2017 completed eCW 3 ([facility] codes replacing CVX 15, 10:51:00 AM EDT [facility]alth [facility]) which is being retired. IIV3. This is one of two 02/23/2017 completed eCW 3 ([place] [facility] codes replacing CVX 15, 10:51:00 AM EDT [facility]) which is being retired. IIV3. This is one of two 02/23/2017 completed eCW 3 ([place] [facility] codes replacing CVX 15, 10:51:00 AM EDT [facility]) which is being retired. IIV3. This vaccine code is 01/20/2016 completed e CW3 ([place] [facility] one of two which replace 08:46:00 AM EDT Health Care) CVX 15, influenza, split virus. IIV3. This vaccine code is 01/20/2016 completed e CW3 ([place] one of two which replace 08:46:00 AM EDT Health Care) CVX 15, influenza, split virus. IIV3. This vaccine code is 01/20/2016 completed e CW3 ([place] one of two which replace 08:46:00 AM EDT Health Care) CVX 15, influenza, split virus. IIV3. This vaccine code is 01/20/2016 completed e CW3 ([place] one of two which replace 08:46:00 AM EDT Health Care) CVX 15, influenza, split virus. IIV3. This vaccine code is 01/20/2016 completed e CW3 ([place] one of two which replace 08:46:00 AM EDT Health Care) CVX 15, influenza, split virus. IIV3. This vaccine code is 01/20/2016 completed e CW3 ([place] one of two which replace 08:46:00 AM EDT Health Care) CVX 15, influenza, split virus. IIV3. This vaccine code is 01/20/2016 completed e CW3 ([place] one of two which replace 08:46:00 AM EDT Health Care) CVX 15, influenza, split virus. Pneumococcal conjugate PCV 01/20/2016 completed e CW3 ([place] 13 08:45:00 AM EDT Health Care) Pneumococcal conjugate PCV 01/20/2016 completed e CW3 ([place] 13 08:45:00 AM EDT Health Care) Pneumococcal conjugate PCV 01/20/2016 completed e CW3 ([place] 13 08:45:00 AM EDT Health Care) Pneumococcal conjugate PCV 01/20/2016 completed e CW3 ([place] 13 08:45:00 AM EDT Health Care) Pneumococcal conjugate PCV 01/20/2016 completed e CW3 ([place] 13 08:45:00 AM EDT Health Care) Pneumococcal conjugate PCV 01/20/2016 completed e CW3 ([place] 13 08:45:00 AM EDT Health Care) Pneumococcal conjugate PCV 01/20/2016 completed e CW3 ([place] 13 08:45:00 AM EDT Health Care) [...] of January 1999, a 04/14/2014 completed eCW3 ([place] 2-dose hepatitis B 11:33:00 AM EST Health Care) schedule for adolescents (11-15 year olds) was FDA approved for Merck's Recombivax HB adult formulation. Use code 43 for the 2-dose. This code should be used for any use of standard adult formulation of hepatitis B vaccine. As of January 1999, a 04/14/2014 completed eCW3 ([place] 2-dose hepatitis B 11:33:00 AM EST Health Care) schedule for adolescents (11-15 year olds) was FDA approved for Merck's Recombivax HB adult formulation. Use code 43 for the 2-dose. This code should be used for any use of standard adult formulation of hepatitis B vaccine. As of January 1999, a 04/14/2014 completed eCW3 ([place] 2-dose hepatitis B 11:33:00 AM EST Health Care) schedule for adolescents (11-15 year olds) was FDA approved for Merck's Recombivax HB adult formulation. Use code 43 for the 2-dose. This code should be used for any use of standard adult formulation of hepatitis B vaccine. As of January 1999, a 04/14/2014 completed eCW3 ([place] 2-dose hepatitis B 11:33:00 AM EST Health Care) schedule for adolescents (11-15 year olds) was FDA approved for Merck's Recombivax HB adult formulation. Use code 43 for the 2-dose. This code should be used for any use of standard adult formulation of hepatitis B vaccine. As of January 1999, a 04/14/2014 completed eCW3 ([place] 2-dose hepatitis B 11:33:00 AM EST Health Care) schedule for adolescents (11-15 year olds) was FDA approved for Merck's Recombivax HB adult formulation. Use code 43 for the 2-dose. This code should be used for any use of standard adult formulation of hepatitis B vaccine. As of January 1999, a 04/14/2014 completed eCW3 ([place] 2-dose hepatitis B 11:33:00 AM EST Health Care) schedule for adolescents (11-15 year olds) was FDA approved for Merck's Recombivax HB adult formulation. Use code 43 for the 2-dose. This code should be used for any use of standard adult formulation of hepatitis B vaccine. As of January 1999, a 04/14/2014 completed eCW3 ([place] 2-dose hepatitis B 11:33:00 AM EST [...] of January 1999, a 12/16/2013 completed eCW3 ([place] 2-dose hepatitis B 01:09:00 PM EDT Health Care) schedule for adolescents (11-15 year olds) was FDA approved for Merck's Recombivax HB adult formulation. Use code 43 for the 2-dose. This code should be used for any use of standard adult formulation of hepatitis B vaccine. As of January 1999, a 12/16/2013 completed eCW3 ([place] 2-dose hepatitis B 01:09:00 PM EDT Health Care) schedule for adolescents (11-15 year olds) was FDA approved for Merck's Recombivax HB adult formulation. Use code 43 for the 2-dose. This code should be used for any use of standard adult formulation of hepatitis B vaccine. As of January 1999, a 12/16/2013 completed eCW3 ([place] 2-dose hepatitis B 01:09:00 PM [facility]) schedule for adolescents (11-15 year olds) was FDA approved for Merck's Recombivax HB adult formulation. Use code 43 for the 2-dose. This code should be used for any use of standard adult formulation of hepatitis B vaccine. As of January 1999, a 12/16/2013 completed eCW3 ([place] 2-dose hepatitis B 01:09:00 PM [facility]) schedule for adolescents (11-15 year olds) was FDA approved for Merck's Recombivax HB adult formulation. Use code 43 for the 2-dose. This code should be used for any use of standard adult formulation of hepatitis B vaccine. As of January 1999, a 12/16/2013 completed eCW3 ([place] 2-dose hepatitis B 01:09:00 PM [facility]) schedule for adolescents (11-15 year olds) was FDA approved for Merck's Recombivax HB adult formulation. Use code 43 for the 2-dose. This code should be used for any use of standard adult formulation of hepatitis B vaccine. As of January 1999, a 12/16/2013 completed eCW3 ([place] 2-dose hepatitis B 01:09:00 PM [facility]) schedule for adolescents (11-15 year olds) was FDA approved for Merck's Recombivax HB adult formulation. Use code 43 for the 2-dose. This code should be used for any use of standard adult formulation of hepatitis B vaccine. As of January 1999, a 12/16/2013 completed eCW3 ([place] 2-dose hepatitis B 01:09:00 PM [facility]) schedule for adolescents (11-15 year olds) was FDA approved for Merck's Recombivax HB adult formulation. Use code 43 for the 2-dose. This code should be used for any use of standard adult formulation of hepatitis B vaccine. As of January 1999, a 10/20/2013 completed eCW3 ([place] 2-dose hepatitis B 11:28:00 AM [facility]) schedule for adolescents (11-15 year olds) was FDA approved for Merck's Recombivax HB adult formulation. Use code 43 for the 2-dose. This code should be used for any use of standard adult formulation of hepatitis B vaccine. As of January 1999, a 10/20/2013 completed eCW3 ([place] 2-dose hepatitis B 11:28:00 AM [facility]) schedule for adolescents (11-15 year olds) was FDA approved for Merck's Recombivax HB adult formulation. Use code 43 for the 2-dose. This code should be used for any use of standard adult formulation of hepatitis B vaccine. As of January 1999, a 10/20/2013 completed eCW3 ([place] 2-dose hepatitis B 11:28:00 AM [facility]) schedule for adolescents (11-15 year olds) was FDA approved for Merck's Recombivax HB adult formulation. Use code 43 for the 2-dose. This code should be used for any use of standard adult formulation of hepatitis B vaccine. As of January 1999, a 10/20/2013 completed eCW3 ([place] 2-dose hepatitis B 11:28:00 AM [facility]) schedule for adolescents (11-15 year olds) was FDA approved for Merck's Recombivax HB adult formulation. Use code 43 for the 2-dose. This code should be used for any use of standard adult formulation of hepatitis B vaccine. As of January 1999, a 10/20/2013 completed eCW3 ([place] 2-dose hepatitis B 11:28:00 AM [facility]) schedule for adolescents (11-15 year olds) was FDA approved for Merck's Recombivax HB adult formulation. Use code 43 for the 2-dose. This code should be used for any use of standard adult formulation of hepatitis B vaccine. As of January 1999, a 10/20/2013 completed eCW3 ([place] 2-dose hepatitis B 11:28:00 AM [facility]) schedule for adolescents (11-15 year olds) was FDA approved for Merck's Recombivax HB adult formulation. Use code 43 for the 2-dose. This code should be used for any use of standard adult formulation of hepatitis B vaccine. As of January 1999, a 10/20/2013 completed eCW3 ([place] 2-dose hepatitis B 11:28:00 AM EDT Health Care) schedule for adolescents (11-15 year olds) was FDA approved for Merck's Recombivax HB adult formulation. Use code 43 for the 2-dose. This code should be used for any use of standard adult formulation of hepatitis B vaccine. IIV3. This vaccine code is 01/09/2013 completed e CW3 ([place] one of two which replace 09:48:29 AM EDT Health Care) CVX 15, influenza, split virus. IIV3. This vaccine code is 01/09/2013 completed e CW3 ([place] one of two which replace 09:48:29 AM EDT Health Care) CVX 15, influenza, split virus. IIV3. This vaccine code is 01/09/2013 completed e CW3 ([place] one of two which replace 09:48:29 AM EDT Health Care) CVX 15, influenza, split virus. IIV3. This vaccine code is 01/09/2013 completed e CW3 ([place] one of two which replace 09:48:29 AM EDT Health Care) CVX 15, influenza, split virus. IIV3. This vaccine code is 01/09/2013 completed e CW3 ([place] one of two which replace 09:48:29 AM EDT Health Care) CVX 15, influenza, split virus. IIV3. This vaccine code is 01/09/2013 completed e CW3 ([place] one of two which replace 09:48:29 AM EDT Health Care) CVX 15, influenza, split virus. IIV3. This vaccine code is 01/09/2013 completed e CW3 ([place] one of two which replace 09:48:29 AM EDT Health Care) CVX 15, influenza, split virus. pneumococcal 04/03/2012 completed eCW3 ([place] [facility] polysaccharide PPV23 11:16:36 AM EST [facility]) pneumococcal 04/03/2012 completed eCW3 ([place] polysaccharide PPV23 11:16:36 AM EST [facility]) pneumococcal 04/03/2012 completed eCW3 ([place] polysaccharide PPV23 11:16:36 AM EST [facility]) pneumococcal 04/03/2012 completed eCW3 ([place] polysaccharide PPV23 11:16:36 AM EST [facility]) pneumococcal 04/03/2012 completed eCW3 ([place] polysaccharide PPV23 11:16:36 AM EST [facility]) pneumococcal 04/03/2012 completed eCW3 ([place] polysaccharide PPV23 11:16:36 AM EST [facility]) pneumococcal 04/03/2012 completed eCW3 ([place] polysaccharide PPV23 11:16:36 AM EST [facility]) IIV3. This vaccine code is 01/15/2012 completed e CW3 ([place] one of two which replace 02:11:25 PM EDT Health Care) CVX 15, influenza, split virus. IIV3. This vaccine code is 01/15/2012 completed e CW3 ([place] one of two which replace 02:11:25 PM EDT Health Care) CVX 15, influenza, split virus. IIV3. This vaccine code is 01/15/2012 completed e CW3 ([place] one of two which replace 02:11:25 PM EDT Health Care) CVX 15, influenza, split virus. IIV3. This vaccine code is 01/15/2012 completed e CW3 ([place] one of two which replace 02:11:25 PM EDT Health Care) CVX 15, influenza, split virus. IIV3. This vaccine code is 01/15/2012 completed e CW3 ([place] one of two which replace 02:11:25 PM EDT Health Care) CVX 15, influenza, split virus. IIV3. This vaccine code is 01/15/2012 completed e CW3 ([place] one of two which replace 02:11:25 PM EDT Health Care) CVX 15, influenza, split virus. IIV3. This vaccine code is 01/15/2012 completed e CW3 ([place] one of two which replace 02:11:25 PM EDT Health Care) CVX 15, influenza, split virus. IIV3. This is one of two 01/06/2011 completed eCW 3 ([place] codes replacing CVX 15, 09:59:12 AM EDT [facility] Care) which is being retired. IIV3. This is one of two 01/06/2011 completed eCW 3 ([place] codes replacing CVX 15, 09:59:12 AM EDT H ealth Care) which is being retired. IIV3. This is one of two 01/06/2011 completed eCW 3 ([place] codes replacing CVX 15, 09:59:12 AM EDT H ealth Care) which is being retired. IIV3. This is one of two 01/06/2011 completed eCW 3 ([place] codes replacing CVX 15, 09:59:12 AM EDT H ealth Care) which is being retired. IIV3. This is one of two 01/06/2011 completed eCW 3 ([place] codes replacing CVX 15, 09:59:12 AM EDT H ealth Care) which is being retired. IIV3. This is one of two 01/06/2011 completed eCW 3 ([place] codes replacing CVX 15, 09:59:12 AM EDT H ealth Care) which is being retired. IIV3. This is one of two 01/06/2011 completed eCW 3 ([place] codes replacing CVX 15, 09:59:12 AM EDT H ealth Care) which is being retired. IIV3. This is one of two 01/26/2010 completed eCW 3 ([place] codes replacing CVX 15, 10:55:27 AM EDT H ealth Care) which is being retired. IIV3. This is one of two 01/26/2010 completed eCW 3 ([place] codes replacing CVX 15, 10:55:27 AM EDT H ealth Care) which is being retired. IIV3. This is one of two 01/26/2010 completed eCW 3 ([place] codes replacing CVX 15, 10:55:27 AM EDT H ealth Care) which is being retired. IIV3. This is one of two 01/26/2010 completed eCW 3 ([place] codes replacing CVX 15, 10:55:27 AM EDT H ealth Care) which is being retired. IIV3. This is one of two 01/26/2010 completed eCW 3 ([place] codes replacing CVX 15, 10:55:27 AM EDT H ealth Care) which is being retired. IIV3. This is one of two 01/26/2010 completed eCW 3 ([place] codes replacing CVX 15, 10:55:27 AM EDT [facility] Care) which is being retired. IIV3. This is one of two 01/26/2010 completed eCW 3 ([place] codes replacing CVX 15, 10:55:27 [facility] which is being [facility]. No Known Immunizations completed eCW2 ([facility]) No Known Immunizations completed eCW2 ([facility]) No Known Immunizations completed eCW2 ([facility]) No Known Immunizations completed eCW2 ([facility]) Medications Medication Brand Start Product Dose Route [facility] Indications Reaction Description Data Name Date Form [...] Vistaril 50 mg capsule 200 ACTUAT Ventol 2.0 active Ventolin HFA eCW3 Albuterol in HFA 2019 {puff 108 (90 (Hud son 0.09 108 [...] active Ventolin HFA eCW3 Albuterol in HFA 2019 {puff 108 (90 (Hud son 0.09 108 12:00: s_as_ Base) [place] MG/ACTUAT (90 00 AM neede MCG/ACT Healt h Metered Base) EDT d} Care) Dose MCG/AC Inhaler T [Ventolin] Ventolin HFA 108 (90 Base) MCG/ACT 200 ACTUAT Ventol .0 active Ventolin HFA eCW3 Albuterol in HFA 2019 {puff 108 (90 (Hud son 0.09 108 12:00: s_as_ Base) [place] MG/ACTUAT (90 00 AM neede MCG/ACT Healt h Metered Base) EDT d} Care) Dose MCG/AC Inhaler T [Ventolin] Ventolin HFA 108 (90 Base) MCG/ACT 200 ACTUAT Ventol .0 active Ventolin HFA eCW3 Albuterol in HFA 2019 {puff 108 (90 (Hud son 0.09 108 [...] active Ventolin HFA eCW3 Albuterol in HFA 2019 {puff 108 (90 (Hud son 0.09 108 12:00: s_as_ Base) [place] MG/ACTUAT (90 00 AM neede MCG/ACT Healt h Metered Base) EDT d} Care) Dose MCG/AC Inhaler T [Ventolin] Ventolin HFA 108 (90 Base) MCG/ACT 60 ACTUAT Advair .0 active Advair eC W3 Fluticasone Diskus 2019 {puff Diskus (Hu d[place] propionate 500-50 12:00: [...] Faheem phs [Abilify] tablet 00 AM [Abilify] Nj dical Abilify 10 EDT Center) mg tablet Hydroxyzine Vistar ORAL complet hydrox yzine NEXTGEN Pamoate 50 il 50 2019 {caps ed pamoate 50 ( [facility] MG Oral mg 12:00: ule} MG Oral Patria Capsule capsul 00 AM Capsule Medica l [Vistaril] e EDT [Vistaril] [place] [facility]) Vistaril 50 mg capsule Foam Foam 09/17/ active Foam eCW3 Dressing - Dressi 2019 Dressing - ( [place] - 12:00: [place] 00 AM Health EDT Care) Foam Foam 09/17/ active Foam eCW3 Dressing - Dressi 2020 Dressing - ( [place] - 12:00: [place] 00 AM Health EDT Care) Mupirocin Mupiro .0 active Mupirocin 2 eCW3 0.02 MG/MG john 2 2020 {appl % ([place] Topical % 12:00: icati [place] Ointment 00 AM on_to Health Mupirocin 2 EDT _affe Care) % cted_ area} Foam Foam 09/17/ active Foam eCW3 Dressing - Dressi 2020 Dressing - ( [place] - 12:00: [place] 00 AM Health EDT Care) Mupirocin Mupiro 09/17/ 1.0 active Mupirocin 2 eCW3 0.02 MG/MG john 2 2020 {appl % ([place] Topical % 12:00: icati [place] Ointment 00 AM on_to Health Mupirocin 2 EDT _affe Care) % cted_ area} Foam Foam 09/17/ active Foam eCW3 Dressing - Dressi 2020 Dressing - ( [place] - 12:00: [place] 00 AM Health EDT Care) Mupirocin Mupiro 09/17/ 1.0 active Mupirocin 2 eCW3 0.02 MG/MG john 2 2020 {appl % ([place] Topical % 12:00: icati [place] Ointment 00 AM on_to Health Mupirocin 2 EDT _affe Care) % cted_ area} Mupirocin Mupiro 09/17/ 1.0 active Mupirocin 2 eCW3 0.02 MG/MG john 2 2020 {appl % ([place] [facility]ical % 12:00: icati [place] Ointment 00 AM on_to Health Mupirocin 2 EDT _affe Care) % cted_ area} Mupirocin Mupiro 09/17/ 1.0 active Mupirocin 2 eCW3 0.02 MG/MG john 2 2020 {appl % ([place] Topical % 12:00: icati [place] Ointment 00 AM on_to Health Mupirocin 2 EDT _affe Care) % cted_ area} Foam Foam 09/17/ active Foam eCW3 Dressing - Dressi 2020 Dressing - ( [place] ng - 12:00: [place] 00 AM Health EDT Care) Foam Foam 09/17/ active Foam eCW3 Dressing - Dressi 2019 Dressing - ( [place] ng - 12:00: [place] 00 AM Health EDT Care) Foam Foam 09/17/ active Foam eCW3 Dressing - Dressi 2020 Dressing - ( [place] - 12:00: [place] 00 AM Health EDT Care) Foam Foam 09/17/ active Foam eCW3 Dressing - Dressi 2020 Dressing - ( [place] - 12:00: [place] 00 AM Health EDT Care) Foam Foam 09/17/ active Foam eCW3 Dressing - Dressi 2020 Dressing - ( [place] - 12:00: [place] 00 AM Health EDT Care) Foam Foam 09/17/ active Foam eCW3 Dressing - Dressi 2020 Dressing - ( [place] - 12:00: [place] 00 AM Health EDT Care) Foam Foam 09/17/ active Foam eCW3 Dressing - Dressi 2020 Dressing - ( [place] - 12:00: [place] 00 AM Health EDT Care) Foam Foam 09/17/ active Foam eCW3 Dressing - Dressi 2020 Dressing - ( [place] - 12:00: [place] 00 AM Health EDT Care) Foam Foam 09/17/ active Foam eCW3 Dressing - Dressi 2020 Dressing - ( [place] - 12:00: [place] 00 AM Health EDT Care) Foam Foam 09/17/ active Foam eCW3 Dressing - Dressi 2020 Dressing - ( [place] - 12:00: [place] 00 AM Health EDT Care) Foam Foam 09/17/ active Foam eCW3 Dressing - Dressi 2020 Dressing - ( [place] - 12:00: [place] 00 AM Health [...] Tablet Patria [Lamictal] tablet 00 AM [Lamictal] [facility] Lamictal EDT Center) 200 mg tablet Ibuprofen [...] Tablet Patria [Lamictal] tablet 00 AM [Lamictal] [facility] Lamictal EDT Center) 200 mg tablet aripiprazol Abilif ORAL complet aripip razole NEXTGEN e 10 MG y 10 2019 {tbl} ed 10 MG Oral (Lety t Oral Tablet mg 12:00: Tablet Faheem phs [Abilify] tablet 00 AM [Abilify] Nj dical Abilify 10 EDT Center) mg tablet Underpads - Underp 06/09/ active Underpa ds - eCW3 ads - 2019 ([place] 12:00: [place] 00 AM Health EST Care) Underpads - Underp 06/09/ active Underpa ds - eCW3 ads - 2019 ([place] 12:00: [place] 00 AM Health EST Care) Underpads - Underp 06/09/ active Underpa ds - eCW3 ads - 2020 ([place] 12:00: [place] 00 AM Health EST Care) Underpads - Underp 02/03/ active Underpa ds - eCW3 ads - 2020 ([place] 12:00: [place] 00 AM Health EST Care) Underpads - Underp 02/03/ active Underpa ds - eCW3 ads - 2020 ([place] 12:00: [place] 00 AM Health EST Care) Underpads - Underp 02/03/ active Underpa ds - eCW3 ads - 2020 ([place] 12:00: [place] 00 AM Health EST Care) Underpads - Underp 02/03/ active Underpa ds - eCW3 ads - 2020 ([place] 12:00: [place] 00 AM Health EST Care) Underpads - Underp 02/03/ active Underpa ds - eCW3 ads - 2020 ([place] 12:00: [place] 00 AM Health EST Care) Underpads - Underp 02/03/ active Underpa ds - eCW3 ads - 2020 ([place] 12:00: [place] 00 AM Health EST Care) Underpads - Underp 02/03/ active Underpa ds - eCW3 ads - 2020 ([place] 12:00: [place] 00 AM Health EST Care) Underpads - Underp 02/03/ active Underpa ds - eCW3 ads - 2020 ([place] 12:00: [place] 00 AM Health EST Care) Underpads - Underp 02/03/ active Underpa ds - eCW3 ads - 2020 ([place] 12:00: [place] 00 AM Health EST Care) Underpads - Underp 02/03/ active Underpa ds - eCW3 ads - 2020 ([place] 12:00: [place] 00 AM Health EST Care) Underpads - Underp 02/03/ active Underpa ds - eCW3 ads - 2020 ([place] 12:00: [place] 00 AM Health EST Care) Underpads - Underp 02/03/ active Underpa ds - eCW3 ads - 2020 ([place] 12:00: [place] 00 AM Health EST Care) Underpads - Underp 02/03/ active Underpa ds - eCW3 ads - 2020 ([place] 12:00: [place] 00 AM Health EST Care) Underpads - Underp 02/03/ active Underpa ds - eCW3 ads - 2020 ([place] 12:00: [place] 00 AM Health EST Care) Underpads - Underp 02/03/ active Underpa ds - eCW3 ads - 2020 ([place] 12:00: [place] 00 AM Health EST [facility]) Underpads - Underp 06/09/ active Underpa ds - eCW3 ads - 2020 ([place] 12:00: [place] 00 AM Health EST [facility]) Hydroxyzine Vistar ORAL complet Hydrox yzine NEXTGEN [...] 12:00: Tablet Patria [Lamictal] tablet 00 AM [Lamictak] [facility] Center) 200 mg tablet aripiprazol Abilif ORAL complet aripip razole NEXTGEN e 10 MG y 2019 {tbl} ed 10 MG Oral (Lety t Oral Tablet mg 12:00: Tablet Faheem phs [Abilify] tablet 00 AM [Abilify] Nj dicak Abiliy 10 [facility] Center) mg tablet Hydroxyzine Vistar ORAL complet [...] Faheem phs [Abilify] tablet 00 AM [Abilify] Nj dical Abilify 10 [facility] Center) mg tablet lamotrigine Lamict ORAL complet lamotr igine NEXTGEN 200 MG Oral al 200 2018 {tbl} ed 200 MG Ora l ([facility] Tablet mg 12:00: Tablet Patria [Lamictal] tablet 00 AM [Lamictal] [facility] EST Center) 200 mg tablet aripiprazol Abilif ORAL complet aripip razole NEXTGEN e 10 MG y 10 2018 {tbl} ed 10 MG Oral (Lety t Oral Tablet mg 12:00: Tablet Faheem phs [Abilify] tablet 00 AM [Abilify] Nj dical Abilify 10 EDT Center) mg tablet [...] Tablet Patria [Lamictal] tablet 00 AM [Lamictal] [facility] Lamictal EDT Center) 200 mg tablet Zinc Oxide Zinc 01/03/ active Zinc Oxide eCW3 0.2 MG/MG Oxide 2018 20 % ([place] Topical 20 % 12:00: [place] Ointment 00 AM Health Zinc Oxide EDT Care) 20 % Zinc Oxide Zinc 01/03/ active Zinc Oxide eCW3 0.2 MG/MG Oxide 2018 20 % ([place] Topical 20 % 12:00: [place] Ointment 00 AM Health Zinc Oxide EDT Care) 20 % Zinc Oxide Zinc 01/03/ active Zinc Oxide eCW3 0.2 MG/MG Oxide 2018 20 % ([place] Topical 20 % 12:00: [place] Ointment 00 AM Health Zinc Oxide EDT Care) 20 % Zinc Oxide Zinc 30/ active Zinc Oxide eCW3 0.2 MG/MG Oxide 2018 20 % ([place] Topical 20 % 12:00: [place] Ointment 00 AM Health Zinc Oxide EDT Care) 20 % Zinc Oxide Zinc 30/ active Zinc Oxide eCW3 0.2 MG/MG Oxide 2018 20 % ([place] Topical 20 % 12:00: [place] Ointment 00 [...] ter) Vistaril 50 mg capsule Acetaminoph Acetam .0 active Acetami nophe eCW3 [...] active Diclofen ac eCW3 Sodium 0.01 enac 2019 Sodium 1 % (H udson MG/MG Sodium [...] [place] Topical Gel 1 % 00 AM [facility] Diclofenac EDT Care) Sodium 1 % Diclofenac Diclof 11/18/ active Diclofen ac eCW3 Sodium 0.01 2018 Sodium 1 % (H udson MG/MG Sodium 12:00: [place] Topical Gel 1 % 00 AM [facility] Diclofenac EDT Care) Sodium 1 % Diclofenac Diclof 11/18/ active Diclofen ac eCW3 Sodium 0.01 2018 Sodium 1 % (H udson MG/MG Sodium 12:00: [place] Topical Gel 1 % 00 AM [facility] Diclofenac EDT Care) Sodium 1 % [...] [place] Topical Gel 1 % 00 AM [facility] Diclofenac EDT Care) Sodium 1 % [...] ets_a Rive r Acetaminoph mg 00 AM [facility] en 500 mg EDT ded} Care) Acetaminoph Acetam 1.0 active Acetami nophe eCW3 en 500 MG inophe 2018 {tabl n 500 mg (Hu dson Oral Tablet n 500 12:00: ets_a Rive r Acetaminoph mg 00 AM [facility] Health en 500 mg EDT ded} Care) Diclofenac Diclof 11/18/ active Diclofen ac eCW3 Sodium 0.01 2018 Sodium 1 % (H udson MG/MG Sodium 12:00: [place] Topical Gel 1 % 00 AM Health Diclofenac EDT Care) Sodium 1 % Diclofenac Diclof 07/15/ active Diclofen ac eCW3 Sodium 0.01 2018 Sodium 1 % (H udson MG/MG Sodium 12:00: [place] Topical Gel 1 % 00 AM Health Diclofenac EDT Care) Sodium 1 % Acetaminoph Acetam 1.0 active Acetami nophe eCW3 en 500 MG inoph2018 {tabl n 500 mg (Hu dson Oral Tablet n 500 12:00: ets_a Rive r Acetaminoph mg 00 AM [facility] Health en 500 mg EDT ded} Care) Acetaminoph Acetam .0 active Acetami nophe eCW3 en 500 MG inophe 2018 {tabl n 500 mg (Hu dson Oral Tablet n 500 12:00: ets_a Rive r Acetaminoph mg 00 AM [facility] Health en 500 mg EDT ded} Care) Diclofenac Diclof 11/18/ active Diclofen ac eCW3 Sodium 0.01 2018 Sodium 1 % (H udson MG/MG Sodium 12:00: [place] Topical Gel 1 % 00 AM [facility] Diclofenac EDT Care) Sodium 1 % Diclofenac Diclof 11/18/ active Diclofen ac eCW3 Sodium 0.01 2018 Sodium 1 % (H udson MG/MG Sodium 12:00: [place] Topical Gel 1 % 00 [facility] Diclofenac EDT Care) Sodium 1 % Diclofenac Diclof 11/18/ active Diclofen ac eCW3 Sodium 0.01 2018 Sodium 1 % (H udson MG/MG Sodium 12:00: [place] Topical Gel 1 % 00 AM [facility] Diclofenac EDT Care) Sodium 1 % Diclofenac Diclof 11/18/ active Diclofen ac eCW3 Sodium 0.01 2018 Sodium 1 % (H udson MG/MG Sodium 12:00: [place] Topical Gel 1 % 00 AM [facility] Diclofenac EDT Care) Sodium 1 % Diclofenac Diclof 11/18/ active Diclofen ac eCW3 Sodium 0.01 2018 Sodium 1 % (H udson MG/MG Sodium 12:00: [place] Topical Gel 1 % 00 AM [facility] Diclofenac EDT Care) Sodium 1 % Diclofenac Diclof 11/18/ active Diclofen ac eCW3 Sodium 0.01 2018 Sodium 1 % (H udson MG/MG Sodium 12:00: [place] Topical Gel 1 % 00 AM [facility] Diclofenac EDT Care) Sodium 1 % [...] azole NEXTGEN e 10 MG y 10 2018 {tbl} 10 MG Oral (Lety t Oral Tablet mg 12:00: Tablet Faheem phs [Abilify] tablet 00 AM [Abilify] Me dical Abilify 10 EDT Center) mg tablet Disposable Dispos 10/17/ active Disposab le eCW3 Liners - able 2018 Liners - ([place] [facility] 12:00: [place] - 00 AM [facility] EDT Care) Disposable Dispos 10/17/ active Disposab le eCW3 Lin[facility] - able 2018 Liners - ([place] [facility] 12:00: [place] - 00 AM Health EDT Care) Disposable Dispos 10/17/ active Disposab le eCW3 Liners - able 2018 Liners - ([place] [facility] 12:00: [place] - 00 AM Health EDT Care) Disposable Dispos 10/17/ active Disposab le eCW3 Liners - able 2019 Liners - ([place] [facility] 12:00: [place] - 00 AM Health EDT Care) Disposable Dispos 10/17/ active Disposab le eCW3 Liners - able 2019 Liners - ([place] [facility] 12:00: [place] - 00 AM Health EDT Care) Disposable Dispos 10/17/ active Disposab le eCW3 Liners - able 2019 Liners - ([place] [facility] 12:00: [place] - 00 AM Health EDT Care) Disposable Dispos 10/17/ active Disposab le eCW3 Liners - able 2019 Liners - ([place] [facility] 12:00: [place] - 00 AM Health EDT Care) Disposable Dispos 10/17/ active Disposab le eCW3 Liners - able 2019 Liners - ([place] [facility] 12:00: [place] - 00 AM Health EDT Care) Disposable Dispos 10/17/ active Disposab le eCW3 Liners - able 2019 Liners - ([place] [facility] 12:00: [place] - 00 AM Health EDT Care) Disposable Dispos 10/17/ active Disposab le eCW3 Liners - able 2019 Liners - ([place] [facility] 12:00: [place] - 00 AM Health EDT Care) Disposable Dispos 10/17/ active Disposab le eCW3 Liners - able 2019 Liners - ([place] Liners 12:00: [place] - 00 AM Health EDT Care) Disposable Dispos 10/17/ active Disposab le eCW3 Liners - able 2019 Liners - ([place] [facility] 12:00: [place] - 00 AM Health EDT Care) Disposable Dispos 10/17/ active Disposab le eCW3 Liners - able 2019 Liners - ([place] [facility]ers 12:00: [place] - 00 AM Health EDT Care) Disposable Dispos 10/17/ active Disposab le eCW3 Liners - able 2019 Liners - ([place] [facility]ers 12:00: [place] - 00 AM Health EDT Care) Disposable Dispos 10/17/ active Disposab le eCW3 Liners - able 2019 Liners - ([place] [facility]ers 12:00: [place] - 00 AM Health EDT Care) Disposable Dispos 10/17/ active Disposab le eCW3 Liners - able 2019 Liners - ([place] [facility] 12:00: [place] - 00 AM Health EDT Care) Disposable Dispos 10/17/ active Disposab le eCW3 Liners - able 2019 Liners - ([place] [facility] 12:00: [place] - 00 AM Health EDT Care) Disposable Dispos 10/17/ active Disposab le eCW3 Liners - able 2019 Liners - ([place] [facility] 12:00: [place] - 00 AM Health EDT Care) Disposable Dispos 10/17/ active Disposab le eCW3 Liners - able 2019 Liners - ([place] [facility]ers 12:00: [place] - 00 AM Health EDT Care) Disposable Dispos 10/17/ active Disposab le eCW3 Liners - able 2019 Liners - ([place] [facility]ers 12:00: [place] - 00 AM Health EDT Care) Disposable Dispos 10/17/ active Disposab le eCW3 Liners - able 2019 Liners - ([place] [facility] 12:00: [place] - 00 AM Health EDT Care) Disposable Dispos 10/17/ active Disposab le eCW3 Liners - able 2019 Liners - ([place] Liners 12:00: [place] - 00 AM Health EDT Care) Disposable Dispos 10/17/ active Disposab le eCW3 Liners - able 2019 Liners - ([place] Liners 12:00: [place] - 00 AM Health EDT Care) Disposable Dispos 10/17/ active Disposab le eCW3 Liners - able 2019 Liners - ([place] Liners 12:00: [place] - 00 AM Health EDT Care) Disposable Dispos 10/17/ active Disposab le eCW3 Liners - able 2019 Liners - ([place] Liners 12:00: [place] - 00 AM Health [...] Patria [Lamictal] tablet 00 AM [Lamictal] [facility]T [facility]) 200 mg tablet Disposable Dispos 07/15/ active Disposab le eCW3 Liners - able 2019 Liners - ([place] Liners 12:00: [place] - 00 AM Health EDT Care) Disposable Dispos 07/15/ active Disposab le eCW3 Liners - able 2019 Liners - ([place] Liners 12:00: [place] - 00 AM Health EDT Care) Disposable Dispos 07/15/ active Disposab le eCW3 Liners - able 2019 Liners - ([place] Liners 12:00: [place] - 00 AM Health EDT Care) Disposable Dispos 07/15/ active Disposab le eCW3 Liners - able 2019 Liners - ([place] Liners 12:00: [place] - 00 AM Health EDT Care) Disposable Dispos 07/15/ active Disposab le eCW3 Liners - able 2019 Liners - ([place] Liners 12:00: [place] - 00 AM Health EDT Care) Disposable Dispos 07/15/ active Disposab le eCW3 Liners - able 2019 Liners - ([place] Liners 12:00: [place] - 00 AM Health EDT Care) Disposable Dispos 07/15/ active Disposab le eCW3 Liners - able 2019 Liners - ([place] Liners 12:00: [place] - 00 AM Health EDT Care) Disposable Dispos 07/15/ active Disposab le eCW3 Liners - able 2019 Liners - ([place] Liners 12:00: [place] - 00 AM Health EDT Care) Disposable Dispos 07/15/ active Disposab le eCW3 Liners - able 2019 Liners - ([place] Liners 12:00: [place] - 00 AM Health EDT Care) Disposable Dispos 07/15/ active Disposab le eCW3 Liners - able 2019 Liners - ([place] Liners 12:00: [place] - 00 AM Health EDT Care) Disposable Dispos 07/15/ active Disposab le eCW3 Liners - able 2019 Liners - ([place] Liners 12:00: [place] - 00 AM Health EDT Care) Disposable Dispos 07/15/ active Disposab le eCW3 Liners - able 2019 Liners - ([place] Liners 12:00: [place] - 00 AM Health EDT Care) Disposable Dispos 07/15/ active Disposab le eCW3 Liners - able 2019 Liners - ([place] Liners 12:00: [place] - 00 AM Health EDT Care) Disposable Dispos 07/15/ active Disposab le eCW3 Liners - able 2019 Liners - ([place] Liners 12:00: [place] - 00 AM Health EDT Care) Disposable Dispos 07/15/ active Disposab le eCW3 Liners - able 2019 Liners - ([place] Liners 12:00: [place] - 00 AM Health EDT Care) Disposable Dispos 07/15/ active Disposab le eCW3 Liners - able 2019 Liners - ([place] Liners 12:00: [place] - 00 AM Health EDT Care) Disposable Dispos 07/15/ active Disposab le eCW3 Liners - able 2019 Liners - ([place] Liners 12:00: [place] - 00 AM Health EDT Care) Disposable Dispos 07/15/ active Disposab le eCW3 Liners - able 2019 Liners - ([place] Liners 12:00: [place] - 00 AM Health EDT Care) Disposable Dispos 07/15/ active Disposab le eCW3 Liners - able 2019 Liners - ([place] Liners 12:00: [place] - 00 AM Health EDT Care) Disposable Dispos 07/15/ active Disposab le eCW3 Liners - able 2019 Liners - ([place] Liners 12:00: [place] - 00 AM Health EDT Care) Disposable Dispos 07/15/ active Disposab le eCW3 Liners - able 2019 Liners - ([place] Liners 12:00: [place] - 00 AM Health EDT Care) Disposable Dispos 07/15/ active Disposab le eCW3 Liners - able 2019 Liners - ([place] Liners 12:00: [place] - 00 AM Health EDT Care) Disposable Dispos 07/15/ active Disposab le eCW3 Liners - able 2019 Liners - ([place] Liners 12:00: [place] - 00 AM Health EDT Care) Disposable Dispos 07/15/ active Disposab le eCW3 Liners - able 2019 Liners - ([place] Liners 12:00: [place] - 00 AM Health EDT Care) Disposable Dispos 07/15/ active Disposab le eCW3 Liners - able 2019 Liners - ([place] Liners 12:00: [place] - 00 AM Health EDT Care) Disposable Dispos 07/15/ active Disposab le eCW3 Liners - able 2019 Liners - ([place] Liners 12:00: [place] - 00 AM Health EDT Care) Disposable Dispos 07/15/ active Disposab le eCW3 Liners - able 2019 Liners - ([place] Liners 12:00: [place] - 00 AM Health EDT Care) Chantix Chanti 06/03/ active Chantix eCW 3 Starting x 2018 Starting ([facility] Starti 12:00: Month Willam R iver 0.5 MG X 11 ng 00 AM 0.5 MG X 11 Health & 1 MG X 42 Month EST & 1 MG X 42 Care) Willam 0.5 MG X 11 & 1 MG X 42 Chantix Chanti 06/03/ active Chantix eCW 3 Starting x 2018 Starting ([facility] Starti 12:00: Month Willam R iver 0.5 MG X 11 ng 00 AM 0.5 MG X 11 Health & 1 MG X 42 Month EST & 1 MG X 42 Care) [place]am 0.5 MG X 11 & 1 MG X 42 Chantix Chanti 06/03/ active Chantix eCW 3 Starting x 2018 Starting ([facility] [place] Starti 12:00: Month [place] R iver 0.5 MG X 11 ng 00 AM 0.5 MG X 11 Health & 1 MG X 42 Month EST & 1 MG X 42 Care) [place]am 0.5 MG X 11 & 1 MG X 42 Chantix Chanti 06/03/ active Chantix eCW 3 Starting x 2018 Starting ([facility] Starti 12:00: Month [place] R iver 0.5 MG X 11 ng 00 AM 0.5 MG X 11 Health & 1 MG X 42 Month EST & 1 MG X 42 Care) [place]am 0.5 MG X 11 & 1 MG X 42 Chantix Chanti 06/03/ active Chantix eCW 3 Starting x 2018 Starting ([facility] [place] Starti 12:00: Month [place]am R iver 0.5 MG X 11 ng 00 AM 0.5 MG X 11 Health & 1 MG X 42 Month EST & 1 MG X 42 Care) [place] 0.5 MG X 11 & 1 MG X 42 Chantix Chanti 06/03/ active Chantix eCW 3 Starting x 2018 Starting ([facility] Starti 12:00: Month [place] R iver 0.5 MG X 11 ng 00 AM 0.5 MG X 11 Health & 1 MG X 42 Month EST & 1 MG X 42 Care) [place] 0.5 MG X 11 & 1 MG X 42 Chantix Chanti 06/03/ active Chantix eCW 3 Starting 2018 Starting ([facility] Starti 12:00: Month [place] R iver 0.5 MG X 11 ng 00 AM 0.5 MG X 11 Health & 1 MG X 42 Month EST & 1 MG X 42 Care) [place] 0.5 MG X 11 & 1 MG X 42 Chantix Chanti 06/03/ active Chantix eCW 3 Starting 2018 Starting ([facility] Starti 12:00: Month [place] R iver 0.5 MG X 11 ng 00 AM 0.5 MG X 11 Health & 1 MG X 42 Month EST & 1 MG X 42 Care) [place] 0.5 MG X 11 & 1 MG X 42 Chantix Chanti 06/03/ active Chantix eCW 3 Starting x 2018 Starting ([facility] [place] Starti 12:00: Month [place] R iver 0.5 MG X 11 ng 00 AM 0.5 MG X 11 Health & 1 MG X 42 Month EST & 1 MG X 42 Care) [place] 0.5 MG X 11 & 1 MG X 42 Chantix Chanti 06/03/ active Chantix eCW 3 Starting 2018 Starting ([facility] Starti 12:00: Month [place] R iver 0.5 MG X 11 ng 00 AM 0.5 MG X 11 Health & 1 MG X 42 Month EST & 1 MG X 42 Care) [place] 0.5 MG X 11 & 1 MG X 42 Chantix Chanti 06/03/ active Chantix eCW 3 Starting 2018 Starting ([facility] Starti 12:00: Month [place] R iver 0.5 MG X 11 ng 00 AM 0.5 MG X 11 Health & 1 MG X 42 Month EST & 1 MG X 42 Care) [place] 0.5 MG X 11 & 1 MG X 42 Chantix Chanti 06/03/ active Chantix eCW 3 Starting x 2018 Starting ([facility] [place] Starti 12:00: Month [place] R iver 0.5 MG X 11 ng 00 AM 0.5 MG X 11 Health & 1 MG X 42 Month EST & 1 MG X 42 Care) [place] 0.5 MG X 11 & 1 MG X 42 Chantix Chanti 06/03/ active Chantix eCW 3 Starting x 2018 Starting ([facility] Starti 12:00: Month [place] R iver 0.5 MG X 11 ng 00 AM 0.5 MG X 11 Health & 1 MG X 42 Month EST & 1 MG X 42 Care) [place] 0.5 MG X 11 & 1 MG X 42 Chantix Chanti 06/03/ active Chantix eCW 3 Starting x 2018 Starting ([facility] [place] Starti 12:00: Month [place] R iver 0.5 MG X 11 ng 00 AM 0.5 MG X 11 Health & 1 MG X 42 Month EST & 1 MG X 42 Care) [place] 0.5 MG X 11 & 1 MG X 42 Chantix Chanti 06/03/ active Chantix eCW 3 Starting 2018 Starting ([facility] Starti 12:00: Month [place] R iver 0.5 MG X 11 ng 00 AM 0.5 MG X 11 Health & 1 MG X 42 Month EST & 1 MG X 42 Care) [place] 0.5 MG X 11 & 1 MG X 42 Chantix Chanti 06/03/ active Chantix eCW 3 Starting x 2018 Starting ([facility] [place] Starti 12:00: Month [place] R iver 0.5 MG X 11 ng 00 AM 0.5 MG X 11 Health & 1 MG X 42 Month EST & 1 MG X 42 Care) [place] 0.5 MG X 11 & 1 MG X 42 Chantix Chanti 06/03/ active Chantix eCW 3 Starting x 2018 Starting ([facility] Starti 12:00: Month [place] R iver 0.5 MG X 11 ng 00 AM 0.5 MG X 11 Health & 1 MG X 42 Month EST & 1 MG X 42 Care) [place] 0.5 MG X 11 & 1 MG X 42 Chantix Chanti 06/03/ active Chantix eCW 3 Starting x 2018 Starting ([facility] [place] Starti 12:00: Month [place] R iver 0.5 MG X 11 ng 00 AM 0.5 MG X 11 Health & 1 MG X 42 Month EST & 1 MG X 42 Care) [place] 0.5 MG X 11 & 1 MG X 42 Chantix Chanti 06/03/ active Chantix eCW 3 Starting x 2018 Starting ([facility] [place] Starti 12:00: Month [place] R iver 0.5 MG X 11 ng 00 AM 0.5 MG X 11 Health & 1 MG X 42 Month EST & 1 MG X 42 Care) [place] 0.5 MG X 11 & 1 MG X 42 Chantix Chanti 06/03/ active Chantix eCW 3 Starting x 2018 Starting ([facility] [place] Starti 12:00: Month [place] R iver 0.5 MG X 11 ng 00 AM 0.5 MG X 11 Health & 1 MG X 42 Month EST & 1 MG X 42 Care) [place] 0.5 MG X 11 & 1 MG X 42 Chantix Chanti 06/03/ active Chantix eCW 3 Starting x 2018 Starting ([facility] [place] Starti 12:00: Month [place] R iver 0.5 MG X 11 ng 00 AM 0.5 MG X 11 Health & 1 MG X 42 Month EST & 1 MG X 42 Care) [place] 0.5 MG X 11 & 1 MG X 42 Chantix Chanti 06/03/ active Chantix eCW 3 Starting x 2018 Starting ([facility] [place] Starti 12:00: Month [place] R iver 0.5 MG X 11 ng 00 AM 0.5 MG X 11 Health & 1 MG X 42 Month EST & 1 MG X 42 Care) [place] 0.5 MG X 11 & 1 MG X 42 Chantix Chanti 06/03/ active Chantix eCW 3 Starting x 2018 Starting ([facility] [place] Starti 12:00: Month [place] R iver 0.5 MG X 11 ng 00 AM 0.5 MG X 11 Health & 1 MG X 42 Month EST & 1 MG X 42 Care) [place] 0.5 MG X 11 & 1 MG X 42 Chantix Chanti 06/03/ active Chantix eCW 3 Starting x 2018 Starting ([facility] [place] Starti 12:00: Month [place] R iver 0.5 MG X 11 ng 00 AM 0.5 MG X 11 Health & 1 MG X 42 Month EST & 1 MG X 42 Care) [place] 0.5 MG X 11 & 1 MG X 42 Chantix Chanti 06/03/ active Chantix eCW 3 Starting x 2018 Starting ([facility] [place] Starti 12:00: Month [place] R iver 0.5 MG X 11 ng 00 AM 0.5 MG X 11 Health & 1 MG X 42 Month EST & 1 MG X 42 Care) [place] 0.5 MG X 11 & 1 MG X 42 Chantix Chanti 06/03/ active Chantix eCW 3 Starting x 2018 Starting ([facility] Starti 12:00: Month [place] R iver 0.5 MG X 11 ng 00 AM 0.5 MG X 11 Health & 1 MG X 42 Month EST & 1 MG X 42 Care) [place] 0.5 MG X 11 & 1 MG X 42 Chantix Chanti 06/03/ active Chantix eCW 3 Starting x 2018 Starting ([facility] Starti 12:00: Month [place] R iver 0.5 MG X 11 ng 00 AM 0.5 MG X 11 Health & 1 MG X 42 Month EST & 1 MG X 42 Care) [place] 0.5 MG X 11 & 1 MG X 42 Commode - Commod 05/15/ active Commode - eCW3 e - 2019 ([place] 12:00: [place] 00 AM Health EST Care) Commode - Commod 05/15/ active Commode - eCW3 e - 2019 ([place] 12:00: [place] 00 AM Health EST Care) Commode - Commod 05/15/ active Commode - eCW3 e - 2019 ([place] 12:00: [place] 00 AM Health EST Care) Commode - Commod 05/15/ active Commode - eCW3 e - 2019 ([place] 12:00: [place] 00 AM Health EST Care) Commode - Commod 05/15/ active Commode - eCW3 e - 2019 ([place] 12:00: [place] 00 AM Health EST Care) Commode - Commod 05/15/ active Commode - eCW3 e - 2019 ([place] 12:00: [place] 00 AM Health EST Care) Commode - Commod 05/15/ active Commode - eCW3 e - 2019 ([place] 12:00: [place] 00 AM Health EST Care) Commode - Commod 05/15/ active Commode - eCW3 e - 2019 ([place] 12:00: [place] 00 AM Health EST Care) Commode - Commod 05/15/ active Commode - eCW3 e - 2019 ([place] 12:00: [place] 00 AM Health EST Care) Commode - Commod 05/15/ active Commode - eCW3 e - 2019 ([place] 12:00: [place] 00 AM Health EST Care) Commode - Commod 05/15/ active Commode - eCW3 e - 2019 ([place] 12:00: [place] 00 AM Health EST Care) Commode - Commod 05/15/ active Commode - eCW3 e - 2019 ([place] 12:00: [place] 00 AM Health EST Care) Commode - Commod 05/15/ active Commode - eCW3 e - 2019 ([place] 12:00: [place] 00 AM Health EST Care) Commode - Commod 05/15/ active Commode - eCW3 e - 2019 ([place] 12:00: [place] 00 AM Health EST Care) Commode - Commod 05/15/ active Commode - eCW3 e - 2019 ([place] 12:00: [place] 00 AM Health EST Care) Commode - Commod 05/15/ active Commode - eCW3 e - 2019 ([place] 12:00: [place] 00 AM Health EST Care) Commode - Commod 05/15/ active Commode - eCW3 e - 2019 ([place] 12:00: [place] 00 AM Health EST Care) Commode - Commod 05/15/ active Commode - eCW3 e - 2019 ([place] 12:00: [place] 00 AM Health EST Care) Commode - Commod 05/15/ active Commode - eCW3 e - 2019 ([place] 12:00: [place] 00 AM Health EST Care) Commode - Commod 05/15/ active Commode - eCW3 e - 2019 ([place] 12:00: [place] 00 AM Health EST Care) Commode - Commod 05/15/ active Commode - eCW3 e - 2019 ([place] 12:00: [place] 00 AM Health EST Care) Commode - Commod 05/15/ active Commode - eCW3 e - 2019 ([place] 12:00: [place] 00 AM Health EST Care) Commode - Commod 05/15/ active Commode - eCW3 e - 2019 ([place] 12:00: [place] 00 AM Health EST Care) Commode - Commod 05/15/ active Commode - eCW3 e - 2019 ([place] 12:00: [place] 00 AM Health EST Care) Commode - Commod 05/15/ active Commode - eCW3 e - 2019 ([place] 12:00: [place] 00 AM Health EST Care) Commode - Commod 05/15/ active Commode - eCW3 e - 2019 ([place] 12:00: [place] 00 AM Health EST Care) Commode - Commod 05/15/ active Commode - eCW3 e - 2019 ([place] 12:00: [place] 00 AM Health EST Care) [...] UNK 14/ active ROLLATOR eCW 3 2018 ([place] 12:00: [place] 00 AM Health EST Care) ROLLATOR UNK 14/ active ROLLATOR eCW 3 2018 ([place] 12:00: [place] 00 AM Health EST Care) ROLLATOR UNK 04/19/ active ROLLATOR eCW 3 2018 ([place] 12:00: [place] 00 AM Health EST Care) ROLLATOR UNK 04/19/ active ROLLATOR eCW 3 2017 ([place] 12:00: [place] 00 AM Health EST Care) ROLLATOR UNK 04/19/ active ROLLATOR eCW 3 2018 ([place] 12:00: [place] 00 AM Health EST Care) ROLLATOR UNK 12/14/ active ROLLATOR eCW 3 2018 ([place] 12:00: [place] 00 AM Health EST Care) ROLLATOR UNK 12/14/ active ROLLATOR eCW 3 2018 ([place] 12:00: [place] 00 AM Health EST Care) ROLLATOR UNK 12/14/ active ROLLATOR eCW 3 2018 ([place] 12:00: [place] 00 AM Health EST Care) ROLLATOR UNK 12/14/ active ROLLATOR eCW 3 2018 ([place] 12:00: [place] 00 AM Health EST Care) ROLLATOR UNK 12/14/ active ROLLATOR eCW 3 2018 ([place] 12:00: [place] 00 AM Health EST Care) ROLLATOR UNK 12/14/ active ROLLATOR eCW 3 2018 ([place] 12:00: [place] 00 AM Health EST Care) ROLLATOR UNK 12/14/ active ROLLATOR eCW 3 2018 ([place] 12:00: [place] 00 AM Health EST Care) ROLLATOR UNK 12/14/ active ROLLATOR eCW 3 2018 ([place] 12:00: [place] 00 AM Health EST Care) ROLLATOR UNK 12/14/ active ROLLATOR eCW 3 2018 ([place] 12:00: [place] 00 AM Health EST Care) ROLLATOR UNK 12/14/ active ROLLATOR eCW 3 2018 ([place] 12:00: [place] 00 AM Health EST Care) ROLLATOR UNK 12/14/ active ROLLATOR eCW 3 2018 ([place] 12:00: [place] 00 AM Health EST Care) ROLLATOR UNK 12/14/ active ROLLATOR eCW 3 2018 ([place] 12:00: [place] 00 AM Health EST Care) ROLLATOR UNK 12/14/ active ROLLATOR eCW 3 2018 ([place] 12:00: [place] 00 AM Health EST Care) ROLLATOR UNK 12/14/ active ROLLATOR eCW 3 2018 ([place] 12:00: [place] 00 AM Health EST Care) ROLLATOR UNK 12/14/ active ROLLATOR eCW 3 2018 ([place] 12:00: [place] 00 AM Health EST Care) ROLLATOR UNK 12/14/ active ROLLATOR eCW 3 2018 ([place] 12:00: [place] 00 AM Health EST Care) ROLLATOR UNK 12/14/ active ROLLATOR eCW 3 2018 ([place] 12:00: [place] 00 AM Health EST Care) ROLLATOR UNK 04/19/ active ROLLATOR eCW 3 2018 ([place] 12:00: [place] 00 AM Health EST Care) ROLLATOR UNK 04/19/ active ROLLATOR eCW 3 2018 ([place] 12:00: [place] 00 AM Health EST Care) ROLLATOR UNK 04/19/ active ROLLATOR eCW 3 2018 ([place] 12:00: [place] 00 AM Health EST Care) ROLLATOR UNK 04/19/ active ROLLATOR eCW 3 2018 ([place] 12:00: [place] 00 AM Health EST Care) ROLLATOR UNK 04/19/ active ROLLATOR eCW 3 2018 ([place] 12:00: [place] 00 AM Health EST Care) Cyanocobala UNK 03/04/ 1.0 active Cyanocoba aguero eCW3 min 1000 2018 {tabl in 1000 MCG (Hu dson MCG 12:00: et} [place] 00 AM Health EDT Care) Nicotine 4 Nicore 03/16/ active Nicorett e 4 eCW3 MG Chewing tte 4 2018 MG ([place] Gum MG 12:00: [place] [[place]] 00 AM Health [place] 4 EDT Care) MG Nicotine 4 Nicore 03/16/ active Nicorett e 4 eCW3 MG Chewing tte 4 2018 MG ([place] Gum MG 12:00: [place] [[place]] 00 AM Health [place] 4 EDT Care) MG Nicotine 4 Nicore 03/16/ active Nicorett e 4 eCW3 MG Chewing tte 4 2018 MG ([place] Gum MG 12:00: [place] [[place]] 00 AM Health [place] 4 EDT Care) MG Nicotine 4 Nicore 03/16/ active Nicorett e 4 eCW3 MG Chewing tte 4 2018 MG ([place] Gum MG 12:00: [place] [[place]] 00 AM Health [place] 4 EDT Care) MG Nicotine 4 Nicore 03/16/ active Nicorett e 4 eCW3 MG Chewing tte 4 2018 MG ([place] Gum MG 12:00: [place] [[place]] 00 AM Health [place] 4 EDT Care) MG Nicotine 4 Nicore 03/16/ active Nicorett e 4 eCW3 MG Chewing tte 4 2018 MG ([place] Gum MG 12:00: [place] [[place]] 00 AM Health [place] 4 EDT Care) MG Nicotine 4 Nicore 07/20/ active Nicorett e 4 eCW3 MG Chewing tte 4 2018 MG ([place] Gum MG 12:00: [place] [[place]] 00 AM Health [place] 4 EDT Care) MG Nicotine 4 Nicore 07/20/ active Nicorett e 4 eCW3 MG Chewing tte 4 2018 MG ([place] Gum MG 12:00: [place] [[place]] 00 AM Health [place] 4 EDT Care) MG Nicotine 4 Nicore 07/20/ active Nicorett e 4 eCW3 MG Chewing tte 4 2018 MG ([place] Gum MG 12:00: [place] [[place]] 00 AM Health [place] 4 EDT Care) MG Nicotine 4 Nicore 07/20/ active Nicorett e 4 eCW3 MG Chewing tte 4 2018 MG ([place] Gum MG 12:00: [place] [[place]] 00 AM Health [place] 4 EDT Care) MG Nicotine 4 Nicore 07/20/ active Nicorett e 4 eCW3 MG Chewing tte 4 2018 MG ([place] Gum MG 12:00: [place] [[place]] 00 AM Health [place] 4 EDT Care) MG Nicotine 4 Nicore 07/20/ active Nicorett e 4 eCW3 MG Chewing tte 4 2018 MG ([place] Gum MG 12:00: [place] [[place]] 00 AM Health [place] 4 EDT Care) MG Nicotine 4 Nicore 07/20/ active Nicorett e 4 eCW3 MG Chewing tte 4 2018 MG ([place] Gum MG 12:00: [place] [[place]] 00 AM Health [place] 4 EDT Care) MG Nicotine 4 Nicore 07/20/ active Nicorett e 4 eCW3 MG Chewing tte 4 2018 MG ([place] Gum MG 12:00: [place] [[place]] 00 AM Health [place] 4 EDT Care) MG Nicotine 4 Nicore 07/20/ active Nicorett e 4 eCW3 MG Chewing tte 4 2018 MG ([place] Gum MG 12:00: [place] [[place]] 00 AM Health [place] 4 EDT Care) MG Nicotine 4 Nicore 07/20/ active Nicorett e 4 eCW3 MG Chewing tte 4 2018 MG ([place] Gum MG 12:00: [place] [[place]] 00 AM Health [place] 4 EDT Care) MG Nicotine 4 Nicore 07/20/ active Nicorett e 4 eCW3 MG Chewing tte 4 2018 MG ([place] Gum MG 12:00: [place] [[place]] 00 AM Health [place] 4 EDT Care) MG Nicotine 4 Nicore 07/20/ active Nicorett e 4 eCW3 MG Chewing tte 4 2018 MG ([place] Gum MG 12:00: [place] [[place]] 00 AM Health [place] 4 EDT Care) MG Nicotine 4 Nicore 07/20/ active Nicorett e 4 eCW3 MG Chewing tte 4 2018 MG ([place] Gum MG 12:00: [place] [[place]] 00 AM Health [place] 4 EDT Care) MG Nicotine 4 Nicore 07/20/ active Nicorett e 4 eCW3 MG Chewing tte 4 2018 MG ([place] Gum MG 12:00: [place] [[place]] 00 AM Health [place] 4 EDT Care) MG Nicotine 4 Nicore 07/20/ active Nicorett e 4 eCW3 MG Chewing tte 4 2018 MG ([place] Gum MG 12:00: [place] [[place]] 00 AM Health [place] 4 EDT Care) MG Nicotine 4 Nicore 07/20/ active Nicorett e 4 eCW3 MG Chewing tte 4 2018 MG ([place] Gum MG 12:00: [place] [[place]] 00 AM Health [place] 4 EDT Care) MG Nicotine 4 Nicore 07/20/ active Nicorett e 4 eCW3 MG Chewing tte 4 2018 MG ([place] Gum MG 12:00: [place] [[place]] 00 AM Health [place] 4 EDT Care) MG Nicotine 4 Nicore 07/20/ active Nicorett e 4 eCW3 MG Chewing tte 4 2018 MG ([place] Gum MG 12:00: [place] [[place]] 00 AM Health [place] 4 EDT Care) MG Nicotine 4 Nicore 07/20/ active Nicorett e 4 eCW3 MG Chewing tte 4 2018 MG ([place] Gum MG 12:00: [place] [[place]] 00 AM Health [place] 4 EDT Care) MG Nicotine 4 Nicore 07/20/ active Nicorett e 4 eCW3 MG Chewing tte 4 2018 MG ([place] Gum MG 12:00: [place] [[place]] 00 AM Health [place] 4 EDT Care) MG Nicotine 4 Nicore 07/20/ active Nicorett e 4 eCW3 MG Chewing tte 4 2018 MG ([place] Gum MG 12:00: [place] [[place]] 00 AM Health [place] 4 EDT Care) MG Transfer Transf 08/07/ active Transfer e CW3 Bench - er 2017 Bench - ([place] Bench 12:00: [place] - 00 AM Health EDT Care) 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/07/ active Wheelcha ir - eCW3 - hair - 2017 ([place] 12:00: [place] 00 AM Health EDT Care) 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/07/ active Wheelcha ir - eCW3 - hair - 2016 ([place] 12:00: [place] 00 AM Health EDT Care) Transfer Transf 08/07/ active Transfer e CW3 Bench - er 2017 Bench - ([place] Bench 12:00: [place] - 00 AM Health EDT Care) Transfer Transf 08/07/ active Transfer e CW3 Bench - er 2017 Bench - ([place] Bench 12:00: [place] - 00 AM Health EDT Care) 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/07/ active Wheelcha ir - eCW3 - hair - 2016 ([place] 12:00: [place] 00 AM Health EDT Care) Transfer Transf 08/07/ active Transfer e CW3 Bench - er 2016 Bench - ([place] Bench 12:00: [place] - 00 AM Health EDT Care) Transfer Transf 08/07/ active Transfer e CW3 Bench - er 2016 Bench - ([place] Bench 12:00: [place] - 00 AM Health EDT Care) Transfer Transf 08/07/ active Transfer e CW3 Bench - er 2016 Bench - ([place] Bench 12:00: [place] - 00 AM Health EDT Care) 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/07/ active Wheelcha ir - eCW3 - hair - 2016 ([place] 12:00: [facility] 00 [facility]) 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/07/ active Wheelcha ir - eCW3 - hair - 2016 ([place] 12:00: [facility] 00 [facility] ED[facility]) Transfer Transf 08/07/ active Transfer e CW3 Bench - er 2016 Bench - ([place] Bench 12:00: [facility] - 00 AM [facility] EDT Care) Transfer Transf 08/07/ active Transfer e CW3 Bench - er 2017 Bench - ([place] Bench 12:00: [facility] - 00 AM [facility] EDT Care) Transfer Transf 08/07/ active Transfer e CW3 Bench - er 2016 Bench - ([place] Bench 12:00: [facility] - 00 AM [facility] EDT Care) Transfer Transf 08/07/ active Transfer e CW3 Bench - er 2016 Bench - ([place] Bench 12:00: [facility] - 00 AM [facility] EDT Care) Transfer Transf 08/07/ active Transfer e CW3 Bench - er 2016 Bench - ([place] Bench 12:00: [facility] - 00 AM [facility] EDT Care) 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/07/ active Wheelcha ir - eCW3 - hair - 2017 ([place] 12:00: [facility] 00 AM [facility] EDT Care) Transfer Transf 08/07/ active Transfer e CW3 Bench - er 2016 Bench - ([place] Bench 12:00: [place] - 00 AM [facility] EDT Care) 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/07/ active Wheelcha ir - eCW3 - hair - 2017 ([place] 12:00: [facility] 00 AM [facility] EDT [facility]) 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/07/ active Wheelcha ir - eCW3 - hair - 2017 ([place] 12:00: [facility] 00 AM [facility] EDT [facility]) 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/07/ active Wheelcha ir - eCW3 - hair - 2017 ([place] 12:00: [facility] 00 AM [facility] EDT [facility]) 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/07/ active Wheelcha ir - eCW3 - hair - 2017 ([place] 12:00: [facility] 00 AM [facility] EDT [facility]) Transfer Transf 08/07/ active Transfer e CW3 Bench - er 2016 Bench - ([place] Bench 12:00: [facility] - 00 AM [facility] EDT Care) Transfer Transf 08/07/ active Transfer e CW3 Bench - er 2016 Bench - ([place] Bench 12:00: [facility] - 00 AM [facility] EDT Care) 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/07/ active Wheelcha ir - eCW3 - hair - 2017 ([place] 12:00: [facility] 00 AM [facility] EDT [facility]) 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/07/ active Wheelcha ir - eCW3 - hair - 2017 ([place] 12:00: [facility] 00 AM [facility] EDT [facility]) Transfer Transf 08/07/ active Transfer e CW3 Bench - er 2016 Bench - ([place] Bench 12:00: [facility] - 00 AM [facility] EDT Care) 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/07/ active Wheelcha ir - eCW3 - hair - 2017 ([place] 12:00: [facility] 00 AM [facility] EDT [facility]) 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/07/ active Wheelcha ir - eCW3 - hair - 2017 ([place] 12:00: [facility] 00 AM [facility] EDT [facility]) 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/07/ active Wheelcha ir - eCW3 - hair - 2017 ([place] 12:00: [facility] 00 AM [facility] EDT [facility]) 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/07/ active Wheelcha ir - eCW3 - hair - 2017 ([place] 12:00: [facility] 00 AM [facility] ED[facility]) 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/07/ active Wheelcha ir - eCW3 - hair - 2017 ([place] 12:00: [facility] 00 [facility] ED[facility]) Transfer Transf 08/07/ active Transfer e CW3 Bench - er 2017 Bench - ([place] Bench 12:00: [facility] - 00 AM [facility] EDT Care) Transfer Transf 08/07/ active Transfer e CW3 Bench - er 2017 Bench - ([place] Bench 12:00: [facility] - 00 AM [facility] EDT Care) Transfer Transf 08/07/ active Transfer e CW3 Bench - er 2017 Bench - ([place] Bench 12:00: [facility] - 00 AM [facility] EDT Care) Transfer Transf 08/07/ active Transfer e CW3 Bench - er 2017 Bench - ([place] Bench 12:00: [facility] - 00 AM [facility] EDT Care) 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/07/ active Wheelcha ir - eCW3 - hair - 2017 ([place] 12:00: [facility] 00 AM [facility] EDT [facility]) 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/07/ active Wheelcha ir - eCW3 - hair - 2017 ([place] 12:00: [facility] 00 AM [facility] EDT Care) 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/07/ active Wheelcha ir - eCW3 - hair - 2017 ([place] 12:00: [facility] 00 [facility] ED[facility]) Transfer Transf 08/07/ active Transfer e CW3 Bench - er 2017 Bench - ([place] Bench 12:00: [facility] - 00 AM [facility] EDT Care) 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/07/ active Wheelcha ir - eCW3 - hair - 2016 ([place] 12:00: [facility] 00 AM [facility] EDT [facility]) Transfer Transf 08/07/ active Transfer e CW3 Bench - er 2017 Bench - ([place] Bench 12:00: [facility] - 00 AM [facility] EDT Care) Transfer Transf 08/07/ active Transfer e CW3 Bench - er 2017 Bench - ([place] Bench 12:00: [facility] - 00 AM [facility] EDT Care) Transfer Transf 08/07/ active Transfer e CW3 Bench - er 2017 Bench - ([place] Bench 12:00: [facility] - 00 AM [facility] EDT Care) 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/07/ active Wheelcha ir - eCW3 - hair - 2017 ([place] 12:00: [facility] 00 AM [facility] EDT Care) 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/07/ active Wheelcha ir - eCW3 - hair - 2017 ([place] 12:00: [facility] 00 AM [facility] EDT [facility]) 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/07/ active Wheelcha ir - eCW3 - hair - 2017 ([place] 12:00: [facility] 00 AM [facility] EDT [facility]) 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/07/ active Wheelcha ir - eCW3 - hair - 2017 ([place] 12:00: [facility] 00 AM [facility] EDT [facility]) Transfer Transf 08/07/ active Transfer e CW3 Bench - er 2016 Bench - ([place] Bench 12:00: [facility] - 00 AM [facility] EDT Care) Transfer Transf 08/07/ active Transfer e CW3 Bench - er 2016 Bench - ([place] Bench 12:00: [facility] - 00 AM [facility] EDT Care) 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/07/ active Wheelcha ir - eCW3 - hair - 2017 ([place] 12:00: [facility] 00 AM [facility] EDT [facility]) 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/07/ active Wheelcha ir - eCW3 - hair - 2017 ([place] 12:00: [facility] 00 AM [facility] EDT [facility]) Transfer Transf 08/07/ active Transfer e CW3 Bench - er 2016 Bench - ([place] Bench 12:00: [place] - 00 AM [facility] EDT Care) Transfer Transf 08/07/ active Transfer e CW3 Bench - er 2016 Bench - ([place] Bench 12:00: [facility] - 00 AM [facility] EDT Care) BEDSIDE UNK 07/31/ active BEDSIDE eCW3 COMMODE 2017 COMMODE ([place] 12:00: [facility] 00 AM [facility] EDT Care) ROLLING UNK 07/31/ active ROLLING eCW3 WALKER WITH 2017 WALKER WITH ( [place] SEAT 12:00: SEAT [place] ATTACHMENT 00 AM ATTACHMENT [facility] EDT Care) ROLLING UNK 07/31/ active ROLLING eCW3 WALKER WITH 2017 WALKER WITH ( [place] SEAT 12:00: SEAT [place] ATTACHMENT 00 AM ATTACHMENT He [facility] EDT Care) ROLLING UNK 07/31/ active ROLLING eCW3 WALKER WITH 2017 WALKER WITH ( [place] SEAT 12:00: SEAT [place] ATTACHMENT 00 AM ATTACHMENT He [facility] EDT Care) BEDSIDE UNK 07/31/ active BEDSIDE eCW3 COMMODE 2017 COMMODE ([place] 12:00: [facility] 00 AM [facility] EDT Care) BEDSIDE UNK 07/31/ active BEDSIDE eCW3 COMMODE 2017 COMMODE ([place] 12:00: [facility] 00 AM [facility] EDT Care) ROLLING UNK 07/31/ active ROLLING eCW3 WALKER WITH 2017 WALKER WITH ( [place] SEAT 12:00: SEAT [place] ATTACHMENT 00 AM ATTACHMENT He [facility] EDT Care) BEDSIDE UNK 07/31/ active BEDSIDE eCW3 COMMODE 2016 COMMODE ([place] 12:00: [facility] 00 AM [facility] EDT Care) BEDSIDE UNK 07/31/ active BEDSIDE eCW3 COMMODE 2016 COMMODE ([place] 12:00: [facility] 00 AM [facility] EDT Care) ROLLING UNK 07/31/ active ROLLING eCW3 WALKER WITH 2017 WALKER WITH ( [place] SEAT 12:00: SEAT [place] ATTACHMENT 00 AM ATTACHMENT He [facility] EDT Care) ROLLING UNK 07/31/ active ROLLING eCW3 WALKER WITH 2017 WALKER WITH ( [place] SEAT 12:00: SEAT [place] ATTACHMENT 00 AM ATTACHMENT He [facility] EDT Care) ROLLING UNK 07/31/ active ROLLING eCW3 WALKER WITH 2017 WALKER WITH ( [place] SEAT 12:00: SEAT [place] ATTACHMENT 00 AM ATTACHMENT He [facility] EDT Care) ROLLING UNK 07/31/ active ROLLING eCW3 WALKER WITH 2017 WALKER WITH ( [place] SEAT 12:00: SEAT [place] ATTACHMENT 00 AM ATTACHMENT He [facility] EDT Care) ROLLING UNK 07/31/ active ROLLING eCW3 WALKER WITH 2017 WALKER WITH ( [place] SEAT 12:00: SEAT [place] ATTACHMENT 00 AM ATTACHMENT He [facility] EDT Care) BEDSIDE UNK 07/31/ active BEDSIDE eCW3 COMMODE 2017 COMMODE ([place] 12:00: [facility] 00 AM [facility] EDT Care) BEDSIDE UNK 07/31/ active BEDSIDE eCW3 COMMODE 2016 COMMODE ([place] 12:00: [facility] 00 AM [facility] EDT Care) BEDSIDE UNK 07/31/ active BEDSIDE eCW3 COMMODE 2017 COMMODE ([place] 12:00: [facility] 00 AM [facility] EDT Care) BEDSIDE UNK 07/31/ active BEDSIDE eCW3 COMMODE 2017 COMMODE ([place] 12:00: [facility] 00 AM [facility] EDT Care) ROLLING UNK 07/31/ active ROLLING eCW3 WALKER WITH 2017 WALKER WITH ( [place] SEAT 12:00: SEAT [place] ATTACHMENT 00 AM ATTACHMENT He [facility] EDT Care) ROLLING UNK 07/31/ active ROLLING eCW3 WALKER WITH 2017 WALKER WITH ( [place] SEAT 12:00: SEAT [place] ATTACHMENT 00 AM ATTACHMENT He [facility] EDT Care) ROLLING UNK 07/31/ active ROLLING eCW3 WALKER WITH 2017 WALKER WITH ( [place] SEAT 12:00: SEAT [place] ATTACHMENT 00 AM ATTACHMENT He [facility] EDT Care) ROLLING UNK 07/31/ active ROLLING eCW3 WALKER WITH 2017 WALKER WITH ( [place] SEAT 12:00: SEAT [place] ATTACHMENT 00 AM ATTACHMENT He [facility] EDT Care) ROLLING UNK 07/31/ active ROLLING eCW3 WALKER WITH 2017 WALKER WITH ( [place] SEAT 12:00: SEAT [place] ATTACHMENT 00 AM ATTACHMENT He [facility] EDT Care) ROLLING UNK 07/31/ active ROLLING eCW3 WALKER WITH 2017 WALKER WITH ( [place] SEAT 12:00: SEAT [place] ATTACHMENT 00 AM ATTACHMENT He [facility] EDT Care) ROLLING UNK 07/31/ active ROLLING eCW3 WALKER WITH 2017 WALKER WITH ( [place] SEAT 12:00: SEAT [place] ATTACHMENT 00 AM ATTACHMENT He [facility] EDT Care) ROLLING UNK 07/31/ active ROLLING eCW3 WALKER WITH 2017 WALKER WITH ( [place] SEAT 12:00: SEAT [place] ATTACHMENT 00 AM ATTACHMENT He [facility] EDT Care) ROLLING UNK 07/31/ active ROLLING eCW3 WALKER WITH 2017 WALKER WITH ( [place] SEAT 12:00: SEAT [place] ATTACHMENT 00 AM ATTACHMENT He [facility] EDT Care) BEDSIDE UNK 07/31/ active BEDSIDE eCW3 COMMODE 2017 COMMODE ([place] 12:00: [facility] 00 AM [facility] EDT Care) BEDSIDE UNK 07/31/ active BEDSIDE eCW3 COMMODE 2017 COMMODE ([place] 12:00: [facility] 00 AM [facility] EDT Care) BEDSIDE UNK 07/31/ active BEDSIDE eCW3 COMMODE 2017 COMMODE ([place] 12:00: [facility] 00 AM [facility] EDT Care) ROLLING UNK 07/31/ active ROLLING eCW3 WALKER WITH 2017 WALKER WITH ( [place] SEAT 12:00: SEAT [place] ATTACHMENT 00 AM ATTACHMENT [facility] [place] EDT Care) BEDSIDE UNK 07/31/ active BEDSIDE eCW3 COMMODE 2017 COMMODE ([place] 12:00: [facility] 00 AM [facility] EDT Care) BEDSIDE UNK 07/31/ active BEDSIDE eCW3 COMMODE 2017 COMMODE ([place] 12:00: [facility] 00 AM [facility] EDT Care) ROLLING UNK 07/31/ active ROLLING eCW3 WALKER WITH 2017 WALKER WITH ( [place] SEAT 12:00: SEAT [place] ATTACHMENT 00 AM ATTACHMENT [facility] EDT Care) BEDSIDE UNK 07/31/ active BEDSIDE eCW3 COMMODE 2017 COMMODE ([place] 12:00: [facility] 00 AM [facility] EDT Care) BEDSIDE UNK 07/31/ active BEDSIDE eCW3 COMMODE 2017 COMMODE ([place] 12:00: [facility] 00 AM [facility] EDT Care) BEDSIDE UNK 07/31/ active BEDSIDE eCW3 COMMODE 2017 COMMODE ([place] 12:00: [facility] 00 AM [facility] EDT Care) ROLLING UNK 07/31/ active ROLLING eCW3 WALKER WITH 2017 WALKER WITH ( [place] SEAT 12:00: SEAT [place] ATTACHMENT 00 AM ATTACHMENT [facility] [place] EDT Care) BEDSIDE UNK 07/31/ active BEDSIDE eCW3 COMMODE 2017 COMMODE ([place] 12:00: [facility] 00 AM [facility] EDT Care) BEDSIDE UNK 07/31/ active BEDSIDE eCW3 COMMODE 2017 COMMODE ([place] 12:00: [facility] 00 AM [facility] EDT Care) BEDSIDE UNK 07/31/ active BEDSIDE eCW3 COMMODE 2017 COMMODE ([place] 12:00: [facility] 00 AM [facility] EDT Care) BEDSIDE UNK 07/31/ active BEDSIDE eCW3 COMMODE 2017 COMMODE ([place] 12:00: [facility] 00 AM [facility] EDT Care) BEDSIDE UNK 07/31/ active BEDSIDE eCW3 COMMODE 2017 COMMODE ([place] 12:00: [place] 00 AM [facility] EDT Care) ROLLING UNK 07/31/ active ROLLING eCW3 WALKER WITH 2017 WALKER WITH ( [place] SEAT 12:00: SEAT [place] ATTACHMENT 00 AM ATTACHMENT [facility] [place] EDT Care) ROLLING UNK 07/31/ active ROLLING eCW3 WALKER WITH 2017 WALKER WITH ( [place] SEAT 12:00: SEAT [place] ATTACHMENT 00 AM ATTACHMENT [facility] [place] EDT Care) ROLLING UNK 07/31/ active ROLLING eCW3 WALKER WITH 2017 WALKER WITH ( [place] SEAT 12:00: SEAT [place] ATTACHMENT 00 AM ATTACHMENT [facility] [place] EDT Care) BEDSIDE UNK 07/31/ active BEDSIDE eCW3 COMMODE 2017 COMMODE ([place] 12:00: [place] 00 AM [facility] EDT Care) ROLLING UNK 07/31/ active ROLLING eCW3 WALKER WITH 2017 WALKER WITH ( [place] SEAT 12:00: SEAT [place] ATTACHMENT 00 AM ATTACHMENT [facility] [place] EDT Care) BEDSIDE UNK 07/31/ active BEDSIDE eCW3 COMMODE 2017 COMMODE ([place] 12:00: [facility] 00 AM [facility] EDT Care) BEDSIDE UNK 07/31/ active BEDSIDE eCW3 COMMODE 2017 COMMODE ([place] 12:00: [place] 00 AM [facility] EDT Care) BEDSIDE UNK 07/31/ active BEDSIDE eCW3 COMMODE 2016 COMMODE ([place] 12:00: [place] 00 AM [facility] EDT Care) BEDSIDE UNK 07/31/ active BEDSIDE eCW3 COMMODE 2017 COMMODE ([place] 12:00: [place] 00 AM [facility] EDT Care) ROLLING UNK 07/31/ active ROLLING eCW3 WALKER WITH 2017 WALKER WITH ( [place] SEAT 12:00: SEAT [place] ATTACHMENT 00 AM ATTACHMENT [facility] [place] EDT Care) ROLLING UNK 07/31/ active ROLLING eCW3 WALKER WITH 2017 WALKER WITH ( [place] SEAT 12:00: SEAT [place] ATTACHMENT 00 AM ATTACHMENT [facility] [place] EDT Care) 200 ACTUAT Ventol 07/04/ 2.0 active Ventolin HFA eCW3 Albuterol in A 2017 {puff 108 (90 (Hud son 0.09 [...] 108 (90 Base) MCG/ACT 200 ACTUAT Ventol 02/28/ 2.0 active Ventolin HFA eCW3 Albuterol in [...] 108 (90 Base) MCG/ACT 200 ACTUAT Ventol 02/28/ 2.0 active Ventolin HFA eCW3 Albuterol in [...] 70 % l Pads 2017 70 % ([place] 70 % 12:00: [facility] 00 AM [facility] EST Care) Lancets - Lancet 05/24/ active Lancets - eCW3 s - 2017 ([place] 12:00: [facility] 00 AM [facility] EST Care) Alcohol Alcoho 05/24/ active Alcohol Pad s eCW3 Pads 70 % l Pads 2016 70 % ([place] 70 % 12:00: [facility] 00 AM [facility] EST Care) Alcohol Alcoho 05/24/ suspend Alcohol Pa ds eCW3 Pads 70 % l Pads 2017 ed 70 % ([place] 70 % 12:00: [facility] 00 AM [facility] EST Care) Lancets - Lancet 05/24/ suspend Lancets - eCW3 s - 2017 ed ([place] 12:00: [facility] 00 AM [facility] EST Care) Lancets - Lancet 05/24/ active Lancets - eCW3 s - 2016 ([place] 12:00: [facility] 00 AM Health EST Care) Lancets - Lancet 05/24/ active Lancets - eCW3 s - 2016 ([place] 12:00: [facility] 00 AM [facility] EST Care) Lancets - Lancet 05/24/ active Lancets - eCW3 s - 2016 ([place] 12:00: [facility] 00 AM [facility] EST Care) Lancets - Lancet 05/24/ suspend Lancets - eCW3 s - 2017 ed ([place] 12:00: [facility] 00 AM [facility] EST Care) Alcohol Alcoho 05/24/ active Alcohol Pad s eCW3 Pads 70 % l Pads 2016 70 % ([place] 70 % 12:00: [facility] 00 AM [facility] EST Care) Lancets - Lancet 05/24/ active Lancets - eCW3 s - 2016 ([place] 12:00: [facility] 00 AM [facility] EST Care) Lancets - Lancet 05/24/ active Lancets - eCW3 s - 2016 ([place] 12:00: [facility] 00 AM [facility] EST Care) Alcohol Alcoho 05/24/ active Alcohol Pad s eCW3 Pads 70 % l Pads 2016 70 % ([place] 70 % 12:00: [facility] 00 AM [facility] EST Care) Alcohol Alcoho 05/24/ active Alcohol Pad s eCW3 Pads 70 % l Pads 2016 70 % (Agry 70 % 12:00: [facility] 00 AM [facility] EST Care) Alcohol Alcoho 05/24/ suspend Alcohol Pa ds eCW3 Pads 70 % l Pads 2017 ed 70 % ([place] 70 % 12:00: [facility] 00 AM Health EST Care) Lancets - Lancet 05/24/ active Lancets - eCW3 s - 2017 ([place] 12:00: [facility] 00 AM Health EST Care) Lancets - Lancet 05/24/ active Lancets - eCW3 s - 2016 ([place] 12:00: [facility] 00 AM [facility] EST Care) Lancets - Lancet 05/24/ active Lancets - eCW3 s - 2016 ([place] 12:00: [facility] 00 AM [facility] EST Care) Lancets - Lancet 05/24/ suspend Lancets - eCW3 s - 2016 ed ([place] 12:00: [facility] 00 AM [facility] EST Care) Alcohol Alcoho 05/24/ active Alcohol Pad s eCW3 Pads 70 % l Pads 2016 70 % ([place] 70 % 12:00: [facility] 00 AM [facility] EST Care) Lancets - Lancet 05/24/ suspend Lancets - eCW3 s - 2016 ed ([place] 12:00: [place] 00 AM [facility] EST Care) Alcohol Alcoho 05/24/ active Alcohol Pad s eCW3 Pads 70 % l Pads 2016 70 % ([place] 70 % 12:00: [facility] 00 AM [facility] EST Care) Lancets - Lancet 05/24/ suspend Lancets - eCW3 s - 2016 ed ([place] 12:00: [facility] 00 AM [facility] EST Care) Lancets - Lancet 05/24/ active Lancets - eCW3 s - 2016 ([place] 12:00: [place] 00 AM [facility] EST Care) Alcohol Alcoho 05/24/ suspend Alcohol Pa ds eCW3 Pads 70 % l Pads 2017 ed 70 % ([place] 70 % 12:00: [facility] 00 AM [facility] EST Care) Lancets - Lancet 05/24/ active Lancets - eCW3 s - 2016 ([place] 12:00: [place] 00 AM Health EST Care) Lancets - Lancet 05/24/ active Lancets - eCW3 s - 2016 ([place] 12:00: [place] 00 AM [facility] EST Care) Alcohol Alcoho 05/24/ suspend Alcohol Pa ds eCW3 Pads 70 % l Pads 2017 ed 70 % ([place] 70 % 12:00: [facility] 00 AM Health EST Care) Alcohol Alcoho 05/24/ active Alcohol Pad s eCW3 Pads 70 % l Pads 2016 70 % ([place] 70 % 12:00: [place] 00 AM Health EST Care) Alcohol Alcoho 05/24/ active Alcohol Pad s eCW3 Pads 70 % l Pads 2017 70 % ([place] 70 % 12:00: [facility] 00 AM [facility] EST Care) Alcohol Alcoho 05/24/ active Alcohol Pad s eCW3 Pads 70 % l Pads 2017 70 % ([place] 70 % 12:00: [facility] 00 AM [facility] EST Care) Lancets - Lancet 05/24/ active Lancets - eCW3 s - 2016 ([place] 12:00: [place] 00 AM [facility] EST Care) Lancets - Lancet 05/24/ active Lancets - eCW3 s - 2016 ([place] 12:00: [place] 00 AM [facility] EST Care) Alcohol Alcoho 05/24/ active Alcohol Pad s eCW3 Pads 70 % l Pads 2016 70 % ([place] 70 % 12:00: [place] 00 AM [facility] EST Care) Lancets - Lancet 05/24/ active Lancets - eCW3 s - 2016 ([place] 12:00: [place] 00 AM [facility] EST Care) Alcohol Alcoho 05/24/ active Alcohol Pad s eCW3 Pads 70 % l Pads 2017 70 % ([place] 70 % 12:00: [place] 00 AM [facility] EST Care) Alcohol Alcoho 05/24/ active Alcohol Pad s eCW3 Pads 70 % l Pads 2016 70 % ([place] 70 % 12:00: [place] 00 AM [facility] EST Care) Alcohol Alcoho 05/24/ suspend Alcohol Pa ds eCW3 Pads 70 % l Pads 2017 ed 70 % ([place] 70 % 12:00: [place] 00 AM [facility] EST Care) Alcohol Alcoho 05/24/ active Alcohol Pad s eCW3 Pads 70 % l Pads 2016 70 % ([place] 70 % 12:00: [place] 00 AM Health EST Care) Lancets - Lancet 05/24/ active Lancets - eCW3 s - 2016 ([place] 12:00: [place] 00 AM [facility] EST Care) Lancets - Lancet 05/24/ active Lancets - eCW3 s - 2016 ([place] 12:00: [place] 00 AM Health EST Care) Alcohol Alcoho 05/24/ active Alcohol Pad s eCW3 Pads 70 % l Pads 2016 70 % ([place] 70 % 12:00: [place] 00 AM Health EST Care) Lancets - Lancet 05/24/ active Lancets - eCW3 s - 2017 ([place] 12:00: [place] 00 AM [facility] EST Care) Lancets - Lancet 05/24/ suspend Lancets - eCW3 s - 2017 ed ([place] 12:00: [place] 00 AM [facility] EST Care) Alcohol Alcoho 05/24/ active Alcohol Pad s eCW3 Pads 70 % l Pads 2016 70 % ([place] 70 % 12:00: [place] 00 AM [facility] EST Care) Alcohol Alcoho 05/24/ active Alcohol Pad s eCW3 Pads 70 % l Pads 2016 70 % ([place] 70 % 12:00: [place] 00 AM [facility] EST Care) Lancets - Lancet 05/24/ active Lancets - eCW3 s - 2016 ([place] 12:00: [place] 00 AM [facility] EST Care) Lancets - Lancet 05/24/ suspend Lancets - eCW3 s - 2016 ed ([place] 12:00: [place] 00 AM [facility] EST Care) Alcohol Alcoho 05/24/ suspend Alcohol Pa ds eCW3 Pads 70 % l Pads 2017 ed 70 % ([place] 70 % 12:00: [place] 00 AM [facility] EST Care) Lancets - Lancet 05/24/ active Lancets - eCW3 s - 2016 ([place] 12:00: [place] 00 AM [facility] EST Care) Alcohol Alcoho 05/24/ active Alcohol Pad s eCW3 Pads 70 % l Pads 2016 70 % ([place] 70 % 12:00: [place] 00 AM [facility] EST Care) Alcohol Alcoho 05/24/ active Alcohol Pad s eCW3 Pads 70 % l Pads 2016 70 % ([place] 70 % 12:00: [place] 00 AM [facility] EST Care) Alcohol Alcoho 05/24/ active Alcohol Pad s eCW3 Pads 70 % l Pads 2016 70 % ([place] 70 % 12:00: [place] 00 AM [facility] EST Care) Alcohol Alcoho 05/24/ suspend Alcohol Pa ds eCW3 Pads 70 % l Pads 2017 ed 70 % ([place] 70 % 12:00: [facility] 00 AM [facility] EST Care) Loratadine Lorata .0 active Loratadi ne eCW3 10 MG Oral dine 2015 {tabl 10 MG ([place] Tablet 10 MG 12:00: et} [facility] 00 AM [facility] EDT Care) Loratadine Lorata 1.0 active Loratadi ne eCW3 10 MG Oral dine 2015 {tabl 10 MG ([place] Tablet 10 MG 12:00: et} [facility] AM [facility] EDT Care) Loratadine Lorata .0 active Loratadi ne eCW3 10 MG Oral dine 2015 {tabl 10 MG ([place] Tablet 10 MG 12:00: et} [facility] AM [facility] EDT Care) [facility] .0 active Singula ir 10 eCW3 10 MG Oral air 10 2015 {tabl MG ([place] Tablet MG 12:00: et_in [place] [Singulair] 00 AM [facility]the[facility] EDT eveni Care) 10 MG ng} [facility] .0 active Singula ir 10 eCW3 10 MG Oral air 10 2015 {tabl MG ([place] Tablet MG 12:00: et_in [place] [facility] 10 MG ng} Loratadine Lorata .0 active Loratadi ne eCW3 10 MG Oral dine 2015 {tabl 10 MG ([place] Tablet 10 MG 12:00: et} [facility] AM [facility] EDT Care) Loratadine Lorata .0 active Loratadi ne eCW3 10 MG Oral dine 2015 {tabl 10 MG ([place] Tablet 10 MG 12:00: et} [facility] EDT Care) Loratadine Lorata .0 active Loratadi ne eCW3 10 MG Oral dine 2015 {tabl 10 MG ([place] Tablet 10 MG 12:00: et} [facility] AM [facility] EDT Care) [facility] .0 active Singula ir 10 eCW3 10 MG Oral air 10 2015 {tabl MG ([place] Tablet MG 12:00: et_in [place] [Singulair] 00 AM _the_ [facility] Singula EDT eveni Care) 10 MG ng} Loratadine Lorata .0 active Loratadi ne eCW3 10 MG Oral dine 2015 {tabl 10 MG ([place] Tablet 10 MG 12:00: et} [facility] EDT Care) Loratadine Lorata .0 active Loratadi ne eCW3 10 MG Oral dine 2015 {tabl 10 MG ([place] Tablet 10 MG 12:00: et} [facility] EDT Care) Loratadine Lorata .0 active Loratadi ne eCW3 10 MG Oral dine 2015 {tabl 10 MG ([place] Tablet 10 MG 12:00: et} [place] 00 AM [facility] EDT Care) [facility] .0 active Singula ir 10 eCW3 10 MG Oral air 10 2015 {tabl MG ([place] Tablet MG 12:00: et_in [place] [Singulair] 00 AM _the_ [facility] Singulair EDT eveni Care) 10 MG ng} Loratadine Lorata .0 active Loratadi ne eCW3 10 MG Oral dine 2015 {tabl 10 MG ([place] Tablet 10 MG 12:00: et} [place] 00 AM [facility] EDT Care) [facility] .0 active Singula ir 10 eCW3 10 MG Oral air 10 2015 {tabl MG ([place] Tablet MG 12:00: et_in [place] [facility] 10 MG ng} Loratadine Lorata .0 active Loratadi ne eCW3 10 MG Oral dine 2015 {tabl 10 MG ([place] Tablet 10 MG 12:00: et} [facility] EDT Care) Loratadine Lorata .0 active Loratadi ne eCW3 10 MG Oral dine 2015 {tabl 10 MG ([place] Tablet 10 MG 12:00: et} [place] 00 AM [facility] EDT Care) [facility] .0 active Singula ir 10 eCW3 10 MG Oral air 10 2015 {tabl MG ([place] Tablet MG 12:00: et_in [place] [Singulair] 00 AM _the_ [facility] Singulair EDT eveni Care) 10 MG ng} Loratadine Lorata .0 active Loratadi ne eCW3 10 MG Oral dine 2015 {tabl 10 MG ([place] Tablet 10 MG 12:00: et} [place] 00 AM [facility] EDT Care) Loratadine Lorata .0 active Loratadi ne eCW3 10 MG Oral dine 2015 {tabl 10 MG ([place] Tablet 10 MG 12:00: et} [place] 00 AM [facility] EDT Care) Loratadine Lorata .0 active Loratadi ne eCW3 10 MG Oral dine 2015 {tabl 10 MG ([place] Tablet 10 MG 12:00: et} [place] 00 AM [facility] EDT Care) [facility] .0 active Singula ir 10 eCW3 10 MG Oral air 10 2015 {tabl MG ([place] Tablet MG 12:00: et_in [place] [Singulair] 00 AM [facility]the[facility]ul[facility] EDT eveni Care) 10 MG ng} Loratadine Lorata 0 active Loratadi ne eCW3 10 MG Oral dine 2015 {tabl 10 MG ([place] Tablet 10 MG 12:00: et} [place] 00 AM [facility] EDT Care) [facility] .0 active Singula ir 10 eCW3 10 MG Oral air 10 2015 {tabl MG ([place] Tablet MG 12:00: et_in [place] [Singulair] 00 AM _the[facility]ul[facility] EDT eveni Care) 10 MG ng} [facility] .0 active Singula ir 10 eCW3 10 MG Oral air 10 2015 {tabl MG ([place] Tablet MG 12:00: et_in [place] [Singulair] 00 AM _the[facility]ul[facility] EDT eveni Care) 10 MG ng} [facility] .0 active Singula ir 10 eCW3 10 MG Oral air 10 2015 {tabl MG ([place] Tablet MG 12:00: et_in [place] [Singulair] 00 AM _the[facility]ul[facility] EDT eveni Care) 10 MG ng} Loratadine Lorata .0 active Loratadi ne eCW3 10 MG Oral dine 2015 {tabl 10 MG ([place] Tablet 10 MG 12:00: et} [place] 00 AM [facility] EDT Care) [facility] .0 active Singula ir 10 eCW3 10 MG Oral air 10 2015 {tabl MG ([place] Tablet MG 12:00: et_in [place] [Singulair] 00 AM _the[facility]ulair EDT eveni Care) 10 MG ng} Loratadine Lorata .0 active Loratadi ne eCW3 10 MG Oral dine 2015 {tabl 10 MG ([place] Tablet 10 MG 12:00: et} [place] 00 AM [facility] EDT Care) Loratadine Lorata .0 active Loratadi ne eCW3 10 MG Oral dine 2015 {tabl 10 MG ([place] Tablet 10 MG 12:00: et} [place] 00 AM [facility] EDT Care) [facility] .0 active Singula ir 10 eCW3 10 MG Oral air 10 2015 {tabl MG ([place] Tablet MG 12:00: et_in [place] [Singulair] 00 AM _the[facility]ul[facility] EDT eveni Care) 10 MG ng} Loratadine Lorata .0 active Loratadi ne eCW3 10 MG Oral dine 2015 {tabl 10 MG ([place] Tablet 10 MG 12:00: et} [place] 00 AM [facility] EDT Care) [facility] .0 active Singula ir 10 eCW3 10 MG Oral air 10 2015 {tabl MG ([place] Tablet MG 12:00: et_in [place] [Singulair] 00 AM _the[facility]ulair EDT eveni Care) 10 MG ng} Loratadine Lorata .0 active Loratadi ne eCW3 10 MG Oral dine 2015 {tabl 10 MG ([place] Tablet 10 MG 12:00: et} [place] 00 AM Health EDT Care) Loratadine Lorata .0 active Loratadi ne eCW3 10 MG Oral dine 2015 {tabl 10 MG ([place] Tablet 10 MG 12:00: et} [place] 00 AM Health EDT Care) [facility] .0 active Singula ir 10 eCW3 10 MG Oral air 10 2015 {tabl MG ([place] Tablet MG 12:00: et_in [place] [Singulair] 00 AM _the_ Health Singulair EDT eveni Care) 10 MG ng} [facility] Singul .0 active Singula ir 10 eCW3 10 MG Oral air 2015 {tabl MG ([place] Tablet MG 12:00: et_in [place] [Singulair] 00 AM _the_ Health Singulair EDT eveni Care) 10 MG ng} [facility] Singul .0 active Singula ir 10 eCW3 10 MG Oral air 10 2015 {tabl MG ([place] Tablet MG 12:00: et_in [place] [Singulair] 00 AM _the_ Health Singulair EDT eveni Care) 10 MG ng} Loratadine Lorata .0 active Loratadi ne eCW3 10 MG Oral dine 2015 {tabl 10 MG ([place] Tablet 10 MG 12:00: et} [place] 00 AM Health EDT Care) [facility] Singul .0 active Singula ir 10 eCW3 10 MG Oral air 2015 {tabl MG ([place] Tablet MG 12:00: et_in [place] [Singulair] 00 AM _the_ Health Singulair EDT eveni Care) 10 MG ng} [facility] Sing .0 active Singula ir 10 eCW3 10 MG Oral air 2015 {tabl MG ([place] Tablet MG 12:00: et_in [place] [Singulair] 00 AM _the_ Health Singulair EDT eveni Care) 10 MG ng} [facility] Sing .0 active Singula ir 10 eCW3 10 MG Oral air 10 2015 {tabl MG ([place] Tablet MG 12:00: et_in [place] [Singulair] 00 AM _the_ Health Singulair EDT eveni Care) 10 MG ng} [facility] Singul .0 active Singula ir 10 eCW3 10 MG Oral air 10 2015 {tabl MG ([place] Tablet MG 12:00: et_in [place] [Singulair] 00 AM _the_ Health Singulair EDT eveni Care) 10 MG ng} [facility] Singul .0 active Singula ir 10 eCW3 10 MG Oral air 10 2015 {tabl MG ([place] Tablet MG 12:00: et_in [place] [Singulair] 00 AM _the_ Health Singulair EDT eveni Care) 10 MG ng} Loratadine Lorata .0 active Loratadi ne eCW3 10 MG Oral dine 2015 {tabl 10 MG ([place] Tablet 10 MG 12:00: et} [place] 00 AM Health EDT Care) Loratadine Lorata .0 active Loratadi ne eCW3 10 MG Oral dine 2015 {tabl 10 MG ([place] Tablet 10 MG 12:00: et} [place] 00 AM Health EDT Care) Loratadine Lorata .0 active Loratadi ne eCW3 10 MG Oral dine 2015 {tabl 10 MG ([place] Tablet 10 MG 12:00: et} [place] 00 AM Health EDT Care) [facility] .0 active Singula ir 10 eCW3 10 MG Oral air 2015 {tabl MG ([place] Tablet MG 12:00: et_in [place] [Singulair] 00 AM _the_ Health Singulair EDT eveni Care) 10 MG ng} [facility] .[facility] active Singula ir 10 eCW3 10 MG Oral air 10 2015 {tabl MG ([place] Tablet MG 12:00: et_in [place] [Singulair] 00 AM _the_ Health Singulair EDT eveni Care) 10 MG ng} Loratadine Lorata .0 active Loratadi ne eCW3 10 MG Oral dine 2015 {tabl 10 MG ([place] Tablet 10 MG 12:00: et} [place] 00 AM Health EDT Care) [facility] Sing .0 active Singula ir 10 eCW3 10 MG Oral air 10 2015 {tabl MG ([place] Tablet MG 12:00: et_in [place] [Singulair] 00 AM _the_ Health Singulair EDT eveni Care) 10 MG ng} [facility] .0 active Singula ir 10 eCW3 10 MG Oral air 10 2015 {tabl MG ([place] Tablet MG 12:00: et_in [place] [Singulair] 00 AM _the_ Health Singulair EDT eveni Care) 10 MG ng} [facility] Singul .0 active Singula ir 10 eCW3 10 MG Oral air 10 2015 {tabl MG ([place] Tablet MG 12:00: et_in [place] [Singulair] 00 AM _the_ Health Singulair EDT eveni Care) 10 MG [facility] 10 MG Oral air 10 2015 {tabl MG ([place] Tablet MG 12:00: et_in [place] [Singulair] 00 AM _the_ Health Singulair EDT eveni Care) 10 MG ng} SHOWER UNK 09/08/ active SHOWER CHAIR e CW3 CHAIR 2016 compatible ([place] compatible 12:00: with patient [place] with 00 AM insurance Health patient EDT Care) insurance SHOWER UNK 09/08/ active SHOWER CHAIR e CW3 CHAIR 2016 compatible ([place] compatible 12:00: with patient [place] with 00 AM insurance Health patient EDT Care) insurance SHOWER UNK 09/08/ active SHOWER CHAIR e CW3 CHAIR 2016 compatible ([place] compatible 12:00: with patient [place] with 00 AM insurance Health patient EDT Care) insurance SHOWER UNK 09/08/ active SHOWER CHAIR e CW3 CHAIR 2016 compatible ([place] compatible 12:00: with patient [place] with 00 AM insurance Health patient EDT Care) insurance SHOWER UNK 09/08/ active SHOWER CHAIR e CW3 CHAIR 2016 compatible ([place] compatible 12:00: with patient [place] with 00 AM insurance Health patient EDT Care) insurance SHOWER UNK 09/08/ active SHOWER CHAIR e CW3 CHAIR 2016 compatible ([place] compatible 12:00: with patient [place] with 00 AM insurance Health patient EDT Care) insurance SHOWER UNK 09/08/ suspend SHOWER CHAIR eCW3 CHAIR 2015 ed compatible ([place] compatible 12:00: with patient [place] with 00 AM insurance Health patient EDT Care) insurance SHOWER UNK 09/08/ suspend SHOWER CHAIR eCW3 CHAIR 2016 ed compatible ([place] compatible 12:00: with patient [place] with 00 AM insurance Health patient EDT Care) insurance SHOWER UNK 09/08/ active SHOWER CHAIR e CW3 CHAIR 2016 compatible ([place] compatible 12:00: with patient [place] with 00 AM insurance Health patient EDT Care) insurance SHOWER UNK 09/08/ suspend SHOWER CHAIR eCW3 CHAIR 2015 ed compatible ([place] compatible 12:00: with patient [place] with 00 AM insurance Health patient EDT Care) insurance SHOWER UNK 09/08/ active SHOWER CHAIR e CW3 CHAIR 2016 compatible ([place] compatible 12:00: with patient [place] with 00 AM insurance Health patient EDT Care) insurance SHOWER UNK 09/08/ active SHOWER CHAIR e CW3 CHAIR 2016 compatible ([place] compatible 12:00: with patient [place] with 00 AM insurance Health patient EDT Care) insurance SHOWER UNK 09/08/ active SHOWER CHAIR e CW3 CHAIR 2015 compatible ([place] compatible 12:00: with patient [place] with 00 AM insurance Health patient EDT Care) insurance SHOWER UNK 09/08/ suspend SHOWER CHAIR eCW3 CHAIR 2016 ed compatible ([place] compatible 12:00: with patient [place] with 00 AM insurance Health patient EDT Care) insurance SHOWER UNK 09/08/ active SHOWER CHAIR e CW3 CHAIR 2016 compatible ([place] compatible 12:00: with patient [place] with 00 AM insurance Health patient EDT Care) insurance SHOWER UNK 09/08/ active SHOWER CHAIR e CW3 CHAIR 2015 compatible ([place] compatible 12:00: with patient [place] with 00 AM insurance Health patient EDT Care) insurance SHOWER UNK 09/08/ active SHOWER CHAIR e CW3 CHAIR 2016 compatible ([place] compatible 12:00: with patient [place] with 00 AM insurance Health patient EDT Care) insurance SHOWER UNK 09/08/ active SHOWER CHAIR e CW3 CHAIR 2016 compatible ([place] compatible 12:00: with patient [place] with 00 AM insurance Health patient EDT Care) insurance SHOWER UNK 09/08/ active SHOWER CHAIR e CW3 CHAIR 2016 compatible ([place] compatible 12:00: with patient [place] with 00 AM insurance Health patient EDT Care) insurance SHOWER UNK 09/08/ active SHOWER CHAIR e CW3 CHAIR 2016 compatible ([place] compatible 12:00: with patient [place] with 00 AM insurance Health patient EDT Care) insurance SHOWER UNK 09/08/ active SHOWER CHAIR e CW3 CHAIR 2015 compatible ([place] compatible 12:00: with patient [place] with 00 AM insurance Health patient EDT Care) insurance SHOWER UNK 05// active SHOWER CHAIR e CW3 CHAIR 2016 compatible ([place] compatible 12:00: with patient [place] with 00 AM insurance Health patient EDT Care) insurance SHOWER UNK 05// active SHOWER CHAIR e CW3 CHAIR 2016 compatible ([place] compatible 12:00: with patient [place] with 00 AM insurance Health patient EDT Care) insurance SHOWER UNK /05/ active SHOWER CHAIR e CW3 CHAIR 2016 compatible ([place] compatible 12:00: with patient [place] with 00 AM insurance Health patient EDT Care) insurance SHOWER UNK // suspend SHOWER CHAIR eCW3 CHAIR 2016 ed compatible ([place] compatible 12:00: with patient [place] with 00 AM insurance Health patient EDT Care) insurance SHOWER UNK 05/05/ suspend SHOWER CHAIR eCW3 CHAIR 2016 ed compatible ([place] compatible 12:00: with patient [place] with 00 AM insurance Health patient EDT Care) insurance SHOWER UNK 05/05/ suspend SHOWER CHAIR eCW3 CHAIR 2015 ed compatible ([place] compatible 12:00: with patient [place] with 00 [...] insurance Health insurance EST Care) Nebulizer UNK 10/ active Nebulizer e CW3 compatible 2015 compatible [...] 00 AM insurance Health insurance EST Care) Albuterol Albute active Albuterol e CW3 0.83 MG/ML rol Sulfate (2.5 ( [place] Inhalant Sulfat MG/3ML) [place] Solution e (2.5 0.083% Health Albuterol MG/3ML Care) Sulfate ) (2.5 0.083% MG/3ML) 0.083% Acetaminoph Oxycod suspend Oxycodon e-Ac eCW3 en 325 MG / one-Ac ed etaminophen ([place] Oxycodone etamin 7.5-325 MG [facility] de 7.5 MG 7.5-32 Care) Oral Tablet 5 MG Oxycodone-A cetaminophe n 7.5-325 MG ALBUTEROL UNK active ALBUTEROL eCW 3 SULFATE SULFATE ([place] 0.083% 2.5 0.083% 2.5 Joni er mg/3 ml mg/3 ml Health Care) pregabalin Lyrica 2.0 active Lyrica 100 eCW3 100 MG Oral 100 MG {caps MG ([place] Capsule ule} [place] [Lyrica] Health Lyrica 100 Care) MG Omeprazole Omepra 1.0 active Omeprazole eCW3 20 MG zole {caps 20 mg ([place] Delayed 20 mg ule} [place] Release Health Oral Care) Capsule Omeprazole 20 mg Fluticasone Flutic 1.0 suspend Fluticas one eCW3 Propionate asone {puff ed Propionate ( [place] 50 MCG/ACT Propio _in_e 50 MCG/ACT [place] nilo ach_n Health 50 ostri Care) MCG/AC l} T Omeprazole Omepra 1.0 active Omeprazole eCW3 20 MG zole {caps 20 mg ([place] Delayed 20 mg ule} [place] Release Health Oral Care) Capsule Omeprazole 20 mg 120 ACTUAT Advair 2.0 active Advair HFA eCW3 Fluticasone HFA {puff 230-21 ([place] propionate 230-21 s} MCG/ACT Rive r 0.23 MCG/AC Health MG/ACTUAT / T Care) salmeterol 0.021 MG/ACTUAT Metered Dose Inhaler [Advair] Advair HFA 230-21 MCG/ACT Albuterol Albute active Albuterol e CW3 0.83 MG/ML rol Sulfate (2.5 ( [place] Inhalant Sulfat MG/3ML) [place] Solution e (2.5 0.083% Health Albuterol MG/3ML Care) Sulfate ) (2.5 0.083% MG/3ML) 0.083% aripiprazol Aripip 1.0 active Aripipraz ole eCW3 e 10 MG razole {tabl 10 MG ([place] Oral Tablet 10 MG et} [place] Aripiprazol Health e 10 MG Care) Calcium 600 Calciu 1.0 active Calcium 6 00 eCW3 + D 600-200 m 600 {tabl + D 600-200 ([place] MG-UNIT + D et} MG-UNIT [place] 600-20 Health 0 Care) MG-UNI T Albuterol Albute active Albuterol e CW3 0.83 MG/ML rol Sulfate (2.5 ( [place] Inhalant Sulfat MG/3ML) [place] Solution e (2.5 0.083% Health Albuterol MG/3ML Care) Sulfate ) (2.5 0.083% MG/3ML) 0.083% pregabalin Lyrica 2.0 active Lyrica 100 eCW3 100 MG Oral 100 MG {caps MG ([place] Capsule ule} [place] [Lyrica] [facility] Lyrica 100 Care) MG lamotrigine Lamotr 1.0 active Lamotrigi ne eCW3 200 MG Oral igine {tabl 200 mg ([place] Tablet 200 mg et} [place] Lamotrigine Health 200 mg Care) Hydroxyzine HydrOX 1.0 active HydrOXYzi ne eCW3 Pamoate 100 Yzine {caps Pamoate 100 ([place] MG Oral Pamoat ule} mg [place] Capsule e 100 Health HydrOXYzine mg Care) Pamoate 100 mg Blood Blood active Blood eCW3 Glucose Glucos Glucose Test (H udson Test - e Test - [facility]) Blood Blood active Blood eCW3 Glucose Glucos Glucose ([place] Monitor e Monitor [place] [facility] w/Device r w/Device Care) System w/Babita ce Vitamin D UNK 1.0 active Vitamin D eCW 3 78587 UNIT {caps 80245 UNIT (H udson ule} [facility]) montelukast Singul 1.0 active Singulair 10 eCW3 10 MG Oral air 10 {tabl mg ([place] Tablet mg et_in [place] [Singulair] _the_ [facility] Singulair eveni Care) 10 mg ng} ALBUTEROL UNK suspend ALBUTEROL eC W3 SULFATE ed SULFATE ([place] 0.083% 2.5 0.083% 2.5 [place] mg/3 ml mg/3 ml Health Care) Acetaminoph Oxycod suspend Oxycodon e-Ac eCW3 en 325 MG / one-Ac ed etaminophen ([place] Oxycodone etamin 7.5-325 MG Ri aleks [facility] Health de 7.5 MG 7.5-32 Care) Oral Tablet 5 MG Oxycodone-A cetaminophe n 7.5-325 MG montelukast Singul 1.0 active Singulair 10 eCW3 10 MG Oral air 10 {tabl mg ([place] Tablet mg et_in [place] [Singulair] _the_ [facility] Singulair eveni Care) 10 mg ng} Omeprazole Omepra 1.0 active Omeprazole eCW3 20 MG zole {caps 20 mg ([place] Delayed 20 mg ule} [place] Release Health Oral Care) Capsule Omeprazole 20 mg Hydroxyzine HydrOX 1.0 active HydrOXYzi ne eCW3 Pamoate 100 Yzine {caps Pamoate 100 ([place] MG Oral Pamoat ule} mg [place] Capsule e 100 Health HydrOXYzine mg Care) Pamoate 100 mg Ibuprofen Ibupro active Ibuprofen e CW3 800 MG Oral fen 800 MG ([place] Tablet 800 MG [facility]) pregabalin Lyrica 1.0 active Lyrica 200 eCW3 200 MG Oral 200 MG {caps MG ([place] Capsule ule} [place] [Lyrica] [facility] Lyrica 200 [facility]) MG Daily-[place] Daily- active Daily-[place] - eCW3 - [place] - ([facility]) Fluticasone Flutic 1.0 active Fluticaso ne eCW3 Propionate asone {puff Propionate ( [place] 50 MCG/ACT Propio _in_e 50 MCG/ACT [place] nilo ach_n Health 50 ostri Care) MCG/AC l} T Zolpidem Ambien 1.0 active Ambien 10 mg eCW3 tartrate 10 10 mg {tabl ([place] MG Oral et_at [place] Tablet _bedt Health [Ambien] madalyn} Care) Ambien 10 mg lamotrigine Lamotr 1.0 active Lamotrigi ne eCW3 200 MG Oral igine {tabl 200 mg ([facility] son Tablet 200 mg et} [place] Lamotrigine Health 200 mg Care) Blood Blood active Blood eCW3 Glucose Glucos Glucose Test (H udson Test - e Test - [facility]) Acetaminoph Oxycod active Oxycodone -Ac eCW3 en 325 MG / one-Ac etaminophen ([place] Oxycodone etamin 7.5-325 MG [place] Hydrochlori oph Health de 7.5 MG 7.5-32 Care) Oral Tablet 5 MG Oxycodone-A cetaminophe n 7.5-325 MG Lancets - Lancet active Lancets - e CW3 s - ([facility]) Omeprazole Omepra 1.0 active Omeprazole eCW3 20 MG zole {caps 20 mg ([place] Delayed 20 mg ule} [facility] Health Oral Care) Capsule Omeprazole 20 mg ALBUTEROL UNK suspend ALBUTEROL eC W3 SULFATE ed SULFATE ([place] 0.083% 2.5 0.083% 2.5 Joni er mg/3 ml mg/3 ml Health Care) pregabalin Lyrica 2.0 active Lyrica 100 eCW3 100 MG Oral 100 MG {caps MG ([place] Capsule ule} [place] [Lyrica] Health Lyrica 100 Care) MG Lancets - Lancet active Lancets - e CW3 s - ([facility]) montelukast Singul 1.0 active Singulair 10 eCW3 10 MG Oral air 10 {tabl mg ([place] Tablet mg et_in [place] [Singulair] _[facility]_ [facility] Singulair eveni Care) 10 mg ng} Vitamin D UNK 1.0 active Vitamin D eCW 3 13873 UNIT {caps 54643 UNIT (H udson ule} [facility]) Blood Blood active Blood eCW3 Glucose Glucos Glucose ([place] Monitor e Monitor [place] System [facility] Health w/Device r w/Device Care) System w/Babita ce Fluticasone Flutic 1.0 active Fluticaso ne eCW3 Propionate asone {puff Propionate ( [place] 50 MCG/ACT Propio _in_e 50 MCG/ACT [place] nilo ach_n Health 50 ostri Care) MCG/AC l} T Acetaminoph Oxycod active Oxycodone -Ac eCW3 en 325 MG / one-Ac etaminophen ([place] Oxycodone etamin 7.5-325 MG Ri ale[place] Hydrochlori [...] active Lancets - e CW3 s - ([facility]) Fluticasone Flutic 1.0 active Fluticaso ne eCW3 Propionate asone {puff Propionate ( [place] 50 MCG/ACT Propio _in_e 50 MCG/ACT [place] nilo ach_n [facility] 50 ostri Care) MCG/AC l} T lamotrigine Lamotr 1.0 active Lamotrigi ne eCW3 200 MG Oral igine {tabl 200 mg ([facility] son Tablet 200 mg et} [place] Lamotrigine Health 200 mg Care) ALBUTEROL UNK suspend ALBUTEROL eC W3 SULFATE ed SULFATE ([place] 0.083% 2.5 0.083% 2.5 [place] er mg/3 ml mg/3 ml Health Care) Isopropyl Alcoho active Alcohol Pre p eCW3 Alcohol 0.7 l Prep 70 % ([place] ML/ML 70 % [place] Medicated [facility] Pad Alcohol Care) Prep 70 % Albuterol Albute active Albuterol e CW3 0.83 MG/ML rol Sulfate (2.5 ( [place] Inhalant Sulfat MG/3ML) [place] Solution e (2.5 0.083% Health Albuterol MG/3ML Care) Sulfate ) (2.5 0.083% MG/3ML) 0.083% Vitamin D UNK 1.0 active Vitamin D eCW 3 46465 UNIT {caps 63011 UNIT (H udson ule} [facility]) Fluticasone Flutic 1.0 active Fluticaso ne eCW3 Propionate asone {puff Propionate ( [place] 50 MCG/ACT Propio _in_e 50 MCG/ACT [place] nilo ach_n [facility] 50 ostri Care) MCG/AC l} T Daily-[place] Daily- active Daily-[place] - eCW3 - [place] - ([facility]) ALBUTEROL UNK suspend ALBUTEROL eC W3 SULFATE ed SULFATE ([place] 0.083% 2.5 0.083% 2.5 Joni er mg/3 ml mg/3 ml [facility] Care) Blood Blood active Blood eCW3 Glucose Glucos Glucose ([place] Monitor e Monitor [place] [facility] Health w/Device r w/Device Care) System w/Babita ce Acetaminoph oxyCOD 1 complet Jose Eduardo nt en 325 MG / ONE-ac ed Aki s Oxycodone etamin [facility] Hydrochlori [facility] de 10 MG 10 Oral Tablet mg-325 oxyCODONE-a mg cetaminophe Tablet n 10 mg-325 , mg Tablet, Ordere Ordered By: d By: Med Hu, MDDirection MDDire s: 1 tablet ctions oral every : 1 eight hours tablet PRN pain oral every eight hours PRN pain albuterol UNK suspend albuterol eC W3 sulfate ed sulfate ([place] 0.083% 2.5 0.083% 2.5 Joni er mg/3 ml mg/3 ml [facility]) Calcium 600 Calciu 1.0 active Calcium 6 00 eCW3 + D 600-200 m 600 {tabl + D 600-200 ([place] MG-UNIT + D et} MG-UNIT [place] 600-[address]) MG-UNI T Daily-[place] Daily- active Daily-[place] - eCW3 - [place] - ([facility]) Isopropyl Alcoho active Alcohol Pre p eCW3 Alcohol 0.7 l Prep 70 % ([place] ML/ML 70 % [place] Medicated Health [facility] Alcohol Care) Prep 70 % aripiprazol Aripip 1.0 active Aripipraz ole eCW3 e 10 MG razole {tabl 10 MG ([place] Oral Tablet 10 MG et} [place] Aripiprazol Health e 10 MG [facility]) Multivitami UNK active Multivitami n eCW3 ns - s - ([facility]) Furosemide Furose 1.0 active Furosemide eCW3 40 MG Oral mide {tabl 40 mg ([place] Tablet 40 mg et} [place] Furosemide [facility] 40 mg [facility]) Blood Blood active Blood eCW3 Glucose Glucos Glucose Test (H udson Test - e Test [facility]) Blood Blood active Blood eCW3 Glucose Glucos Glucose Test (H udson Test - e Test [facility]) Furosemide Furose 1.0 active Furosemide eCW3 40 MG Oral mide {tabl 40 mg ([place] Tablet 40 mg et} [place] Furosemide [facility] 40 mg [facility]) Acetaminoph Oxycod suspend Oxycodon e-Ac eCW3 en 325 MG / one-Ac ed etaminophen ([place] Oxycodone etamin 7.5-325 MG [facility] Health de 7.5 MG 7.5-32 Care) Oral Tablet 5 MG Oxycodone-A cetaminophe n 7.5-325 MG Hydroxyzine HydrOX 1.0 active HydrOXYzi ne eCW3 Pamoate 100 Yzine {caps Pamoate 100 ([place] MG Oral Pamoat ule} mg [place] Capsule e 100 Health HydrOXYzine mg Care) Pamoate 100 mg montelukast Singul 1.0 active Singulair 10 eCW3 10 MG Oral air 10 {tabl mg ([place] Tablet mg et_in [place] [Singulair] _[facility]_ [facility] Singulair eveni Care) 10 mg ng} Blood Blood active Blood eCW3 Glucose Glucos Glucose Test ( udson Test - e Test - [facility]) Furosemide Furose 1.0 active Furosemide eCW3 40 MG Oral mide {tabl 40 mg ([place] Tablet 40 mg et} [place] Furosemide Health 40 mg Care) Vitamin D UNK 1.0 active Vitamin D eCW 3 41762 UNIT {caps 42486 UNIT (H udson ule} [facility]) montelukast Singul 1.0 active Singulair 10 eCW3 10 MG Oral air 10 {tabl mg ([place] Tablet mg et_in [place] [[facility]ulair] [facility] 10 mg ng} Vitamin D UNK 1.0 active Vitamin D eCW 3 25775 UNIT {caps 44278 UNIT (H udson ule} [facility]) Loratadine lorata 1 complet Lety t 10 MG Oral dine ed [place] Tablet 10 mg Medical loratadine Tablet Center 10 mg , Tablet, Ordere Ordered By: d By: Asaf Crump-A janis MDDirection MDDire s: 1 tablet ctions oral daily : 1 tablet oral daily Vitamin D UNK 1.0 active Vitamin D eCW 3 18062 UNIT {caps 37612 UNIT (H udson ule} [facility]) lamotrigine lamoTR 1 complet Jose Eduardo nt 200 MG Oral Igine ed [place] Tablet 200 mg Medical lamoTRIgine Tablet Center 200 mg , Tablet, Ordere Ordered By: d By: Asaf Crump-Orlin Safo-A , sante, MDDirection MDDire s: 1 tablet ctions oral daily : 1 tablet oral daily lamotrigine Lamotr 1.0 active Lamotrigi ne eCW3 200 MG Oral igine {tabl 200 mg ([place] Tablet 200 mg et} [place] Lamotrigine Health 200 mg Care) Zolpidem Ambien 1.0 active Ambien 10 mg eCW3 tartrate 10 10 mg {tabl ([place] MG Oral et_at [place] Tablet _bedt Health [Ambien] maadlyn} Care) Ambien 10 mg Multivitami UNK active Multivitami n eCW3 ns - s - ([facility]) Fluticasone Flutic 1.0 suspend Fluticas one eCW3 Propionate asone {puff ed Propionate ( [place] 50 MCG/ACT Propio _in_e 50 MCG/ACT [place] nilo ach_n Health 50 ostri Care) MCG/AC l} T Calcium 600 Calciu 1.0 active Calcium 6 00 eCW3 + D 600-200 m 600 {tabl + D 600-200 ([place] MG-UNIT + D et} MG-UNIT [place] 600-20 Health 0 Care) MG-UNI T Vitamin D UNK 1.0 active Vitamin D eCW 3 88773 UNIT {caps 63016 UNIT (H udson ule} [facility]) Albuterol Albute active Albuterol e CW3 0.83 MG/ML rol Sulfate (2.5 ( [place] Inhalant Sulfat MG/3ML) [place] Solution e (2.5 0.083% Health Albuterol MG/3ML Care) Sulfate ) (2.5 0.083% MG/3ML) 0.083% aripiprazol Aripip 1.0 active Aripipraz ole eCW3 e 10 MG razole {tabl 10 MG ([place] Oral Tablet 10 MG et} [place] Aripiprazol Health e 10 MG Care) Omeprazole Omepra 1.0 active Omeprazole eCW3 20 MG zole {caps 20 mg ([place] Delayed 20 mg ule} [place] Release [facility] Oral Care) Capsule Omeprazole 20 mg Zolpidem Ambien 1.0 active Ambien 10 mg eCW3 tartrate 10 10 mg {tabl ([place] MG Oral et_at [place] Tablet _bedt Health [Ambien] madalyn} Care) Ambien 10 mg Isopropyl Alcoho active Alcohol Pre p eCW3 Alcohol 0.7 l Prep 70 % ([place] ML/ML 70 % [place] Medicated [facility] Pad Alcohol Care) Prep 70 % Multivitami UNK active Multivitami n eCW3 ns - s - ([facility]) Zolpidem Ambien 1.0 active Ambien 10 mg eCW3 tartrate 10 10 mg {tabl ([place] MG Oral et_at [place] Tablet _bed Health [Ambien] madalyn} Care) Ambien 10 mg Calcium 600 Calciu 1.0 active Calcium 6 00 eCW3 + D 600-200 m 600 {tabl + D 600-200 ([place] MG-UNIT + D et} MG-UNIT [place] 600-20 Health Care) MG-UNI T Lancets - Lancet active Lancets - e CW3 s - ([facility]) Furosemide Furose 1.0 active Furosemide eCW3 40 MG Oral mide {tabl 40 mg ([place] Tablet 40 mg et} [place] Furosemide Health 40 mg Care) Blood Blood active Blood eCW3 Glucose Glucos Glucose ([place] Monitor e Monitor [place] [facility] Health w/Device r w/Device Care) System w/Babita ce montelukast Singul 1.0 active Singulair 10 eCW3 10 MG Oral air 10 {tabl mg ([place] Tablet mg et_in [place] [Singulair] _the_ Health Singulair eveni Care) 10 mg ng} Isopropyl Alcoho active Alcohol Pre p eCW3 Alcohol 0.7 l Prep 70 % ([place] ML/ML 70 % [place] Medicated [facility] Pad Alcohol Care) Prep 70 % Daily-[place] Daily- active Daily-[place] - eCW3 - [place] - ([facility]) Zolpidem Ambien 1.0 active Ambien 10 mg eCW3 tartrate 10 10 mg {tabl ([place] MG Oral et_at [place] Tablet _bed Health [Ambien] madalyn} Care) Ambien 10 mg Vitamin D UNK 1.0 suspend Vitamin D eC W3 86101 UNIT {[place] 76[address] UNIT (H udson ule} [facility]) Lancets - Lancet active Lancets - e CW3 s - ([facility]) Multivitami UNK active Multivitami n eCW3 ns - s - ([facility]) lamotrigine Lamotr 1.0 active Lamotrigi ne eCW3 200 MG Oral igine {tabl 200 mg ([place]ud son Tablet 200 mg et} [place] Lamotrigine Health 200 mg Care) pregabalin Lyrica 2.0 active Lyrica 100 eCW3 100 MG Oral 100 MG {caps MG ([place] Capsule ule} [place] [Lyrica] Health Lyrica 100 Care) MG Isopropyl Alcoho active Alcohol Pre p eCW3 Alcohol 0.7 l Prep 70 % ([place] ML/ML 70 % [place] Medicated [facility] Pad Alcohol Care) Prep 70 % Hydroxyzine HydrOX 1.0 active HydrOXYzi ne eCW3 Pamoate 100 Yzine {caps Pamoate 100 ([place] MG Oral Pamoat ule} mg [place] Capsule e 100 Health HydrOXYzine mg Care) Pamoate 100 mg lamotrigine Lamotr 1.0 active Lamotrigi ne eCW3 200 MG Oral igine {tabl 200 mg ([facility] son Tablet 200 mg et} [place] Lamotrigine Health 200 mg Care) Blood Blood active Blood eCW3 Glucose Glucos Glucose Test ([facility] Test - e Test - [facility]) ALBUTEROL UNK suspend ALBUTEROL eC W3 SULFATE ed SULFATE ([place] 0.083% 2.5 0.083% 2.5 Joni er mg/3 ml mg/3 ml [facility] Care) Albuterol Albute active Albuterol e CW3 0.83 MG/ML rol Sulfate (2.5 ( [place] Inhalant Sulfat MG/3ML) [place] Solution e (2.5 [...] active Lancets - e CW3 s - ([facility]) Blood Blood active Blood eCW3 Glucose Glucos Glucose Test ([facility] Test - e Test - [facility]) lamotrigine Lamotr 1.0 active Lamotrigi ne eCW3 200 MG Oral igine {tabl 200 mg ([place] Tablet 200 mg et} [place] Lamotrigine Health 200 mg Care) Calcium 600 Calciu 1.0 active Calcium 6 00 eCW3 + D 600-200 m 600 {tabl + D 600-200 ([place] MG-UNIT + D et} MG-UNIT [place] 600-20 Health 0 Care) MG-UNI T montelukast Singul 1.0 active Singulair 10 eCW3 10 MG Oral air 10 {tabl mg ([place] Tablet mg et_in [place] [Singulair] _the_ Health Singulair eveni Care) 10 mg ng} aripiprazol Aripip 1.0 active Aripipraz ole eCW3 e 10 MG razole {tabl 10 MG ([place] Oral Tablet 10 MG et} [place] Aripiprazol Health e 10 MG Care) Omeprazole Omepra 1.0 active Omeprazole eCW3 20 MG zole {caps 20 mg ([place] Delayed 20 mg ule} [facility]) Capsule Omeprazole 20 mg Daily-[place] Daily- active Daily-[place] - eCW3 - [place] - ([facility]) Omeprazole Omepra 1.0 active Omeprazole eCW3 20 MG zole {caps 20 mg ([place] Delayed 20 mg ule} [facility]) Capsule Omeprazole 20 mg Zolpidem Ambien 1.0 active Ambien 10 mg eCW3 tartrate 10 10 mg {tabl ([place] MG Oral et_at [place] Tablet _bedt Health [Ambien] madalyn} Care) Ambien 10 mg Furosemide Furose 1.0 active Furosemide eCW3 40 MG Oral mide {tabl 40 mg ([place] Tablet 40 mg et} [place] Furosemide Health 40 mg Care) Lancets - Lancet active Lancets - e CW3 s - ([facility]) Vitamin D UNK 1.0 active Vitamin D eCW 3 03591 UNIT {caps 71904 UNIT (H udson ule} [facility]) Blood Blood active Blood eCW3 Glucose Glucos Glucose Test ([facility]son Test - e Test - [facility]) montelukast Singul 1.0 active Singulair 10 eCW3 10 MG Oral air 10 {tabl mg ([place] Tablet mg et_in [place] [Singulair] _the_ Health Singulair eveni Care) 10 mg ng} Acetaminoph Oxycod suspend Oxycodon e-Ac eCW3 en 325 MG / one-Ac ed etaminophen ([place] Oxycodone etamin 7.5-325 MG Ri ale[place] Hydrochlori oph Health de 7.5 MG 7.5-32 Care) Oral Tablet 5 MG Oxycodone-A cetaminophe n 7.5-325 MG Multivitami UNK active Multivitami n eCW3 ns - s - ([facility]) Hydroxyzine HydrOX 1.0 active HydrOXYzi ne eCW3 Pamoate 100 Yzine {caps Pamoate 100 ([place] MG Oral Pamoat ule} mg [place] Capsule e 100 Health HydrOXYzine mg Care) Pamoate 100 mg ALBUTEROL UNK active ALBUTEROL eCW 3 SULFATE SULFATE ([place] 0.083% 2.5 0.083% 2.5 [place] mg/3 [...] e 10 MG razole {tabl 10 MG ([place] Oral Tablet 10 MG et} [place] Aripiprazol Health e 10 MG Care) ALBUTEROL UNK suspend ALBUTEROL eC W3 SULFATE ed SULFATE ([place] 0.083% 2.5 0.083% 2.5 [place] er mg/3 ml mg/3 ml Health Care) lamotrigine Lamotr 1.0 active Lamotrigi ne eCW3 200 MG Oral igine {tabl 200 mg ([facility] [facility] Tablet 200 mg et} [place] Lamotrigine Health 200 mg Care) Calcium 600 Calciu 1.0 active Calcium 6 00 eCW3 + D 600-200 m 600 {tabl + D 600-200 ([place] MG-UNIT + D et} MG-UNIT [place] 600-20 Health 0 Care) MG-UNI T Acetaminoph Oxycod active Oxycodone -Ac eCW3 en 325 MG / one-Ac etaminophen ([place] Oxycodone etamin 7.5-325 MG Ri aleks Hydrochlori ophen Health de 7.5 MG 7.5-32 Care) Oral Tablet 5 MG Oxycodone-A cetaminophe n 7.5-325 MG montelukast Singul 1.0 active Singulair 10 eCW3 10 MG Oral air 10 {tabl mg ([place] Tablet mg et_in [place] [Singulair] _the_ [facility] Singulair eveni Care) 10 mg ng} Calcium 600 Calciu 1.0 active Calcium 6 00 eCW3 + D 600-200 m 600 {tabl + D 600-200 ([place] MG-UNIT + D et} MG-UNIT [place] 600-20 Health 0 Care) MG-UNI T Acetaminoph Oxycod active Oxycodone -Ac eCW3 en 325 MG / one-Ac etaminophen ([place] Oxycodone etamin 7.5-325 MG Ri aleks [facility]i [facility] Health de 7.5 MG 7.5-32 Care) Oral Tablet 5 MG Oxycodone-A cetaminophe n 7.5-325 MG Omeprazole Omepra 1.0 active Omeprazole eCW3 20 MG zole {caps 20 mg ([place] Delayed 20 mg ule} [facility] Health Oral Care) Capsule Omeprazole 20 mg lamotrigine Lamotr 1.0 active Lamotrigi ne eCW3 200 MG Oral igine {tabl 200 mg ([place] Tablet 200 mg et} [place] Lamotrigine Health 200 mg Care) Blood Blood active Blood eCW3 Glucose Glucos Glucose Test ([facility]son Test - e Test - [facility]) Hydroxyzine HydrOX 1.0 active HydrOXYzi ne eCW3 Pamoate 100 Yzine {caps Pamoate 100 ([place] MG Oral Pamoat ule} mg [place] Capsule e 100 Health HydrOXYzine mg Care) Pamoate 100 mg ALBUTEROL UNK active ALBUTEROL eCW 3 SULFATE SULFATE ([place] 0.083% 2.5 0.083% 2.5 [place] er mg/3 ml mg/3 ml Health Care) Albuterol Albute suspend Albuterol eCW3 0.83 MG/ML rol ed Sulfate (2.5 ( [place] Inhalant Sulfat MG/3ML) [place] Solution e (2.5 0.083% Health Albuterol MG/3ML Care) Sulfate ) (2.5 0.083% MG/3ML) 0.083% ALBUTEROL UNK suspend ALBUTEROL eC W3 SULFATE ed SULFATE ([place] 0.083% 2.5 0.083% 2.5 [place] mg/3 ml mg/3 ml Health Care) Furosemide Furose 1.0 active Furosemide eCW3 40 MG Oral mide {tabl 40 mg ([place] Tablet 40 mg et} [place] Furosemide Health 40 mg Care) Fluticasone Flutic 1.0 active Fluticaso ne eCW3 Propionate asone {puff Propionate ( [place] 50 MCG/ACT Propio _in_e 50 MCG/ACT [place] nilo ach_n Health 50 ostri Care) MCG/AC l} T Hydroxyzine HydrOX 1.0 active HydrOXYzi ne eCW3 Pamoate 100 Yzine {caps Pamoate 100 ([place] MG Oral Pamoat ule} mg [place] Capsule e 100 Health HydrOXYzine mg Care) Pamoate 100 mg calcium complet Calcium 600 Sa int carbonate-v ed + D(3) Aki s itamin D3 Medical ([facility] 600 + D(3)) 600 mg calcium (1,500 mg)-200 unit Tablet Omeprazole Omepra 1.0 active Omeprazole eCW3 20 MG zole {caps 20 mg ([place] Delayed 20 mg ule} [facility] Oral Care) Capsule Omeprazole 20 mg Zolpidem Ambien 1.0 active Ambien 10 mg eCW3 tartrate 10 10 mg {tabl ([place] MG Oral et_at [place] Tablet _bedt Health [Ambien] madalyn} Care) Ambien 10 mg Blood Blood active Blood eCW3 Glucose Glucos Glucose ([place] Monitor e Monitor [facility] Health w/Device r w/Device Care) System w/Babita ce 120 ACTUAT Advair 2.0 active Advair HFA eCW3 Fluticasone HFA {puff 230-21 ([place] propionate 230-21 s} MCG/ACT Rive r 0.23 MCG/AC Health MG/ACTUAT / T Care) salmeterol 0.021 MG/ACTUAT Metered Dose Inhaler [Advair] Advair HFA 230-21 MCG/ACT Daily-[place] Daily- active Daily-[place] - eCW3 - [place] - ([facility]) pregabalin Lyrica 1.0 active Lyrica 150 eCW3 150 MG Oral 150 MG {caps MG ([place] Capsule ule} [place] [Lyrica] [facility] Lyrica 150 Care) MG Blood Blood active Blood eCW3 Glucose Glucos Glucose ([place] Monitor e Monitor [facility] [employer] [facility] Health w/Device r w/Device Care) System w/Babita ce pregabalin Lyrica 1.0 active Lyrica 150 eCW3 150 MG Oral 150 MG {caps MG ([place] Capsule ule} [place] [facility] Care) MG Vitamin D UNK 1.0 active Vitamin D eCW 3 07957 UNIT {caps 43998 UNIT (H udson ule} [place] [facility] Care) Vitamin D UNK 1.0 active Vitamin D eCW 3 14144 UNIT {caps 76799 UNIT (H udson ule} [place] [facility] Care) Blood Blood active Blood eCW3 Glucose Glucos Glucose ([place] Monitor e Monitor [facility] [employer] [facility] Health w/Device r w/Device Care) System w/Babita ce Daily-[place] Daily- active Daily-[place] - eCW3 - [place] - ([facility]) montelukast Singul 1.0 active Singulair 10 eCW3 10 MG Oral air 10 {tabl mg ([place] Tablet mg et_in [place] [Singulair] _the_ Health Singulair eveni Care) 10 mg ng} Blood Blood active Blood eCW3 Glucose Glucos Glucose ([place] Monitor e Monitor [facility] [employer] [facility] Health w/Device r w/Device Care) System w/Babita ce aripiprazol Aripip 1.0 active Aripipraz ole eCW3 e 10 MG razole {tabl 10 MG ([place] Oral Tablet 10 MG et} [place] Aripiprazol Health e 10 MG Care) montelukast Singul 1.0 active Singulair 10 eCW3 10 MG Oral air 10 {tabl mg ([place] Tablet mg et_in [place] [Singulair] _the_ Health Singulair eveni Care) 10 mg ng} Isopropyl Alcoho active Alcohol Pre p eCW3 Alcohol 0.7 l Prep 70 % ([place] ML/ML 70 % [place] [facility] Pad Alcohol Care) Prep 70 % Unknown complet eCW2 Medications ed ([facility]) 120 ACTUAT Advair 2.0 active Advair HFA eCW3 Fluticasone HFA {puff 230-21 ([place] propionate 230-21 s} MCG/ACT Rive r 0.23 MCG/AC Health MG/ACTUAT / T Care) salmeterol 0.021 MG/ACTUAT Metered Dose Inhaler [Advair] Advair HFA 230-21 MCG/ACT Omeprazole Omepra 1.0 active Omeprazole eCW3 20 MG zole {caps 20 mg ([place] Delayed 20 mg ule} [place] Release [facility] Oral Care) Capsule Omeprazole 20 mg pregabalin Lyrica 2.0 active Lyrica 100 eCW3 100 MG Oral 100 MG {caps MG ([place] Capsule ule} [place] [Lyrica] [facility] Lyrica 100 Care) MG aripiprazol Aripip 1.0 active Aripipraz ole eCW3 e 10 MG razole {tabl 10 MG ([place] Oral Tablet 10 MG et} [place] Aripiprazol Health e 10 MG Care) Fluticasone Flutic 1.0 active Fluticaso ne eCW3 Propionate asone {puff Propionate ( [place] 50 MCG/ACT Propio _in_e 50 MCG/ACT [place] nilo ach_n Health 50 ostri Care) MCG/AC l} T No Known complet eCW2 Medications ed ([facility]) aripiprazol Aripip 1.0 active Aripipraz ole eCW3 e 10 MG razole {tabl 10 MG ([place] Oral Tablet 10 MG et} [place] Aripiprazol Health e 10 MG Care) 120 ACTUAT Advair 2.0 active Advair HFA eCW3 Fluticasone HFA {puff 230-21 ([facility] on propionate 230-21 s} MCG/ACT Rive r 0.23 MCG/AC Health MG/ACTUAT / T Care) salmeterol 0.021 MG/ACTUAT Metered Dose Inhaler [Advair] Advair HFA 230-21 MCG/ACT Zolpidem Ambien 1.0 active Ambien 10 mg eCW3 tartrate 10 10 mg [facility]tabl [facility] [place] Tablet _bedt Health [Ambien] madalyn} Care) Ambien 10 mg Blood Blood active Blood eCW3 Glucose Glucos Glucose ([place] Monitor e Monitor [facility] Health w/Device r w/Device Care) System w/Babita ce Daily-[place] Daily- active Daily-[place] - eCW3 - [place] - ([facility]) Daily-[place] Daily- active Daily-[place] - eCW3 - [place] - ([facility]) Daily-[place] Daily- active Daily-[place] - eCW3 - [place] - ([facility]) Calcium 600 Calciu 1.0 active Calcium 6 00 eCW3 + D 600-200 m 600 {tabl + D 600-200 ([place] MG-UNIT + D et} MG-UNIT [place] 600-20 [facility] 0 Care) MG-UNI T Multivitami UNK active Multivitami n eCW3 ns - s - ([facility]) Isopropyl Alcoho active Alcohol Pre p eCW3 Alcohol 0.7 l Prep 70 % ([place] ML/ML 70 % [place] Medicated Health [facility] Alcohol Care) Prep 70 % Isopropyl Alcoho active Alcohol Pre p eCW3 Alcohol 0.7 l Prep 70 % ([place] ML/ML 70 % [place] [facility] Care) Prep 70 % Hydroxyzine HydrOX 1.0 active HydrOXYzi ne eCW3 Pamoate 100 Yzine {caps Pamoate 100 ([place] MG Oral Pamoat ule} mg [place] Capsule e 100 Health HydrOXYzine mg Care) Pamoate 100 mg Albuterol Albute active Albuterol e CW3 0.83 MG/ML rol Sulfate (2.5 ( [place] Inhalant Sulfat MG/3ML) [place] Solution e (2.5 0.083% [facility] Albuterol MG/3ML Care) Sulfate ) (2.5 0.083% MG/3ML) 0.083% Multivitami UNK active Multivitami n eCW3 ns - s - ([facility]) pregabalin Lyrica 2.0 active Lyrica 100 eCW3 100 MG Oral 100 MG {caps MG ([facility] on Capsule ule} [place] [Lyrica] [facility] Lyrica 100 Care) MG aripiprazol Aripip 1.0 active Aripipraz ole eCW3 e 10 MG razole {tabl 10 MG ([place] Oral Tablet 10 MG et} [place] Aripiprazol [facility] e 10 MG Care) 120 ACTUAT Advair 2.0 active Advair HFA eCW3 Fluticasone HFA {puff 230-21 ([place] propionate 230-21 s} MCG/ACT Rive r 0.23 MCG/AC Health MG/ACTUAT / T Care) salmeterol 0.021 MG/ACTUAT Metered Dose Inhaler [Advair] Advair HFA 230-21 MCG/ACT Albuterol Albute active Albuterol e CW3 0.83 MG/ML rol Sulfate (2.5 ( [place] Inhalant Sulfat MG/3ML) [place] Solution e (2.5 0.083% [facility] Albuterol MG/3ML Care) Sulfate ) (2.5 0.083% MG/3ML) 0.083% ALBUTEROL UNK suspend ALBUTEROL eC W3 SULFATE ed SULFATE ([place] 0.083% 2.5 0.083% 2.5 [place] mg/3 ml mg/3 ml [facility] Care) lamotrigine Lamotr 1.0 active Lamotrigi ne eCW3 200 MG Oral igine {tabl 200 mg ([facility] son Tablet 200 mg et} [place] Lamotrigine [facility] 200 mg Care) Lancets - Lancet active Lancets - e CW3 s - ([facility]) Zolpidem Ambien 1.0 active Ambien 10 mg eCW3 tartrate 10 10 mg {tabl ([place] MG Oral et_at [place] Tablet _bedt Health [Ambien] madalyn} Care) Ambien 10 mg Fluticasone Flutic 1.0 active Fluticaso ne eCW3 Propionate asone {puff Propionate ( [place] 50 MCG/ACT Propio _in_e 50 MCG/ACT [place] nilo ach_n Health 50 ostri Care) MCG/AC l} T montelukast Singul 1.0 active Singulair 10 eCW3 10 MG Oral air 10 {tabl mg ([place] Tablet mg et_in [place] [Singulair] _the_ Health Singulair eveni Care) 10 mg ng} Daily-[place] Daily- active Daily-[place] - eCW3 - [place] - ([facility]) ALBUTEROL UNK active ALBUTEROL eCW 3 SULFATE SULFATE ([place] 0.083% 2.5 0.083% 2.5 [place] mg/3 ml mg/3 ml [facility] Care) Furosemide Furose 1.0 active Furosemide eCW3 40 MG Oral mide {tabl 40 mg ([place] Tablet 40 mg et} [place] Furosemide Health 40 mg Care) Zolpidem Ambien 1.0 active Ambien 10 mg eCW3 tartrate 10 10 mg {tabl ([place] MG Oral et_at [place] Tablet _bedt Health [Ambien] madalyn} Care) Ambien 10 mg MULTI-VITAM complet [place] TABLET 1 [facility] TAB ORAL Medical DAILY Center Calcium 600 Calciu 1.0 active Calcium 6 00 eCW3 + D 600-200 m 600 {tabl + D 600-200 ([place] MG-UNIT + D et} MG-UNIT [place] 600-20 Health 0 Care) MG-UNI T Lancets - Lancet active Lancets - e CW3 s - ([facility]) Multivitami UNK active Multivitami n eCW3 ns - s - ([facility]) Blood Blood active Blood eCW3 Glucose Glucos Glucose Test ([facility] Test - e Test - [facility]) Albuterol Albute active Albuterol e CW3 0.83 MG/ML rol Sulfate (2.5 ( [place] Inhalant Sulfat MG/3ML) [place] Solution e (2.5 0.083% Health Albuterol MG/3ML Care) Sulfate ) (2.5 0.083% MG/3ML) 0.083% Vitamin D UNK 1.0 active Vitamin D eCW 3 41999 UNIT {caps 66651 UNIT (H udson ule} [facility]) Lancets - Lancet active Lancets - e CW3 s - ([facility]) Multivitami UNK active Multivitami n eCW3 ns - s - ([facility]) Lancets - Lancet active Lancets - e CW3 s - ([facility]) aripiprazol Aripip 1.0 active Aripipraz ole eCW3 e 10 MG razole {tabl 10 MG ([place] Oral Tablet 10 MG et} [place] Aripiprazol Health e 10 MG Care) Calcium 600 Calciu 1.0 active Calcium 6 00 eCW3 + D 600-200 m 600 {tabl + D 600-200 ([place] MG-UNIT + D et} MG-UNIT [place] 600-20 Health 0 Care) MG-UNI T Blood Blood active Blood eCW3 Glucose Glucos Glucose ([place] Monitor e Monitor [facility] Health w/Device r w/Device Care) System w/Babita ce montelukast Singul 1.0 active Singulair 10 eCW3 10 MG Oral air 10 {tabl mg ([place] Tablet mg et_in [place] [Singulair] _the_ Health Singulair eveni Care) 10 mg ng} Blood Blood active Blood eCW3 Glucose Glucos Glucose ([place] Monitor e Monitor [facility] Health w/Device r w/Device Care) System w/Babita ce Blood Blood active Blood eCW3 Glucose Glucos Glucose ([place] Monitor e Monitor [facility] Health w/Device r w/Device Care) System w/Babita ce Hydroxyzine HydrOX 1.0 active HydrOXYzi ne eCW3 Pamoate 100 Yzine {caps Pamoate 100 ([place] MG Oral Pamoat ule} mg [place] Capsule e 100 Health HydrOXYzine mg Care) Pamoate 100 mg Furosemide Furose 1.0 active Furosemide eCW3 40 MG Oral mide {tabl 40 mg ([place] Tablet 40 mg et} [place] Furosemide Health 40 mg Care) pregabalin Lyrica 1.0 active Lyrica 150 eCW3 150 MG Oral 150 MG {caps MG ([place] Capsule ule} [place] [Lyrica] Health Lyrica 150 Care) MG Furosemide Furose 1.0 active Furosemide eCW3 40 MG Oral mide {tabl 40 mg ([place] Tablet 40 mg et} [place] Furosemide Health 40 mg Care) Lancets - Lancet active Lancets - e CW3 s - ([facility]) Zolpidem Ambien 1.0 active Ambien 10 mg eCW3 tartrate 10 10 mg {tabl ([place] MG Oral et_at [place] Tablet _bedt Health [Ambien] madalyn} Care) Ambien 10 mg Omeprazole Omepra 1.0 active Omeprazole eCW3 20 MG zole {caps 20 mg ([place] Delayed 20 mg ule} [place] Release Health Oral Care) Capsule Omeprazole 20 [...] 70 % ([place] ML/ML 70 % [place] [facility]icated [facility] Pad Alcohol Care) Prep 70 % Lancets - Lancet active Lancets - e CW3 s - ([facility]) Fluticasone Flutic 1.0 active Fluticaso ne eCW3 Propionate asone {puff Propionate ( [place] 50 MCG/ACT Propio _in_e 50 MCG/ACT [place] nilo ach_n Health 50 ostri Care) MCG/AC l} T Daily-[place] Daily- active Daily-[place] - eCW3 - [place] - ([facility]) Lancets - Lancet active Lancets - e CW3 s - ([facility]) Furosemide Furose 1.0 active Furosemide eCW3 40 MG Oral mide {tabl 40 mg ([place] Tablet 40 mg et} [place] Furosemide Health 40 mg Care) 120 ACTUAT Advair 2.0 active Advair HFA eCW3 Fluticasone HFA {puff 230-21 ([place] propionate 230-21 s} MCG/ACT Rive r 0.23 MCG/AC Health MG/ACTUAT / T Care) salmeterol 0.021 MG/ACTUAT Metered Dose Inhaler [Advair] Advair HFA 230-21 MCG/ACT Vitamin D UNK 1.0 active Vitamin D eCW 3 03490 UNIT {caps 30268 UNIT (H udson ule} [facility]) Zolpidem Ambien 1.0 active Ambien 10 mg eCW3 tartrate 10 10 mg {tabl ([place] MG Oral et_at [place] Tablet _bedt Health [Ambien] madalyn} Care) Ambien 10 mg Multivitami UNK active Multivitami n eCW3 ns - s - ([facility]) Omeprazole Omepra 1.0 active Omeprazole eCW3 20 MG zole {caps 20 mg ([place] Delayed 20 mg ule} [facility] Oral Care) Capsule Omeprazole 20 mg Albuterol Albute active Albuterol e CW3 0.83 MG/ML rol Sulfate (2.5 ( [place] Inhalant Sulfat MG/3ML) [place] Solution e (2.5 0.083% [facility] Albuterol MG/3ML Care) Sulfate ) (2.5 0.083% MG/3ML) 0.083% ALBUTEROL UNK suspend ALBUTEROL eC W3 SULFATE ed SULFATE ([place] 0.083% 2.5 0.083% 2.5 [place] mg/3 ml mg/3 ml [facility] Care) Daily-[place] Daily- active Daily-[place] - eCW3 - [place] - ([facility]) Fluticasone Flutic 1.0 active Fluticaso ne eCW3 Propionate asone {puff Propionate ( [place] 50 MCG/ACT Propio _in_e 50 MCG/ACT [place] nilo ach_n Health 50 ostri Care) MCG/AC l} T Blood Blood active Blood eCW3 Glucose Glucos Glucose ([place] Monitor e Monitor [place] [facility] Health w/Device r w/Device Care) System w/Babita ce pregabalin Lyrica 1.0 active Lyrica 200 eCW3 200 MG Oral 200 MG {caps MG ([place] Capsule ule} [place] [Lyrica] [facility] Lyrica 200 Care) MG Vitamin D UNK 1.0 active Vitamin D eCW 3 45196 UNIT {caps 80141 UNIT (H udson ule} [place] [facility] Care) Omeprazole Omepra 1.0 active Omeprazole eCW3 20 MG zole {caps 20 mg ([place] Delayed 20 mg ule} [facility] Oral Care) Capsule Omeprazole 20 mg Calcium 600 Calciu 1.0 active Calcium 6 00 eCW3 + D 600-200 m 600 {tabl + D 600-200 ([place] MG-UNIT + D et} MG-UNIT [place] 600-20 Health 0 Care) MG-UNI T Vitamin D UNK 1.0 active Vitamin D eCW 3 74054 UNIT {caps 74402 UNIT (H udson ule} [place] [facility] Care) Fluticasone Flutic 1.0 active Fluticaso ne eCW3 Propionate asone {puff Propionate ( [place] 50 MCG/ACT Propio _in_e 50 MCG/ACT [place] nilo ach_n Health 50 ostri Care) MCG/AC l} T Multivitami UNK active Multivitami n eCW3 ns - s - ([facility]) Calcium 600 Calciu 1.0 active Calcium 6 00 eCW3 + D 600-200 m 600 {tabl + D 600-200 ([place] MG-UNIT + D et} MG-UNIT [place] 600-20 [facility] 0 Care) MG-UNI T Albuterol Alb[place] suspend Albuterol eCW3 0.83 MG/ML rol ed Sulfate (2.5 ( [place] Inhalant Sulfat MG/3ML) [place] Solution e (2.5 0.083% Health Albuterol MG/3ML Care) Sulfate ) (2.5 0.083% MG/3ML) 0.083% Albuterol Albute suspend Albuterol eCW3 0.83 MG/ML rol ed Sulfate (2.5 ( [place] Inhalant Sulfat MG/3ML) [place] Solution e (2.5 0.083% Health Albuterol MG/3ML Care) Sulfate ) (2.5 0.083% MG/3ML) 0.083% Isopropyl Alcoho active Alcohol Pre p eCW3 Alcohol 0.7 l Prep 70 % ([place] ML/ML 70 % [place] [facility]icated [facility] Alcohol Care) Prep 70 % Calcium 600 Calciu 1.0 active Calcium 6 00 eCW3 + D 600-200 m 600 {tabl + D 600-200 ([place] MG-UNIT + D et} MG-UNIT [place] 600-[address]) MG-UNI T montelukast Singul 1.0 active Singulair 10 eCW3 10 MG Oral air 10 {tabl mg ([place] Tablet mg et_in [place] [Singulair] _the_ Health Singulair eveni Care) 10 mg ng} lamotrigine Lamotr 1.0 active Lamotrigi ne eCW3 200 MG Oral igine {tabl 200 mg ([place] Tablet 200 mg et} [place] Lamotrigine Health 200 mg Care) Zolpidem Ambien 1.0 active Ambien 10 mg eCW3 tartrate 10 10 mg {tabl ([place] MG Oral et_at [place] Tablet _bedt Health [Ambien] madalyn} Care) Ambien 10 mg Multivitami UNK active Multivitami n eCW3 ns - s - ([facility]) Vitamin D UNK 1.0 active Vitamin D eCW 3 44283 UNIT {caps 13074 UNIT (H udson ule} [facility]) Omeprazole Omepra 1.0 active Omeprazole eCW3 20 MG zole {caps 20 mg ([place] Delayed 20 mg ule} [facility] Oral Care) Capsule Omeprazole 20 mg 120 ACTUAT Advair 2.0 active Advair HFA eCW3 Fluticasone HFA {puff 230-21 ([place] propionate 230-21 s} MCG/ACT Rive r 0.23 MCG/AC Health MG/ACTUAT / T Care) salmeterol 0.021 MG/ACTUAT Metered Dose Inhaler [Advair] Advair HFA 230-21 MCG/ACT Calcium 600 Calciu 1.0 active Calcium 6 00 eCW3 + D 600-200 m 600 {tabl + D 600-200 ([place] MG-UNIT + D et} MG-UNIT [place] 600-[address]) MG-UNI T Lancets - Lancet active Lancets - e CW3 s - ([facility]) pregabalin Lyrica 1.0 active Lyrica 150 eCW3 150 MG Oral 150 MG {caps MG ([place] Capsule ule} [place] [Lyrica] Health Lyrica 150 Care) MG Omeprazole Omepra 1.0 active Omeprazole eCW3 20 MG zole {caps 20 mg ([place] Delayed 20 mg ule} [place] Release [facility] Oral Care) Capsule Omeprazole 20 mg Albuterol Albute suspend Albuterol eCW3 0.83 MG/ML rol ed Sulfate (2.5 ( [place] Inhalant Sulfat MG/3ML) [place] Solution e (2.5 0.083% Health Albuterol MG/3ML Care) Sulfate ) (2.5 0.083% MG/3ML) 0.083% Hydroxyzine HydrOX 1.0 active HydrOXYzi ne eCW3 Pamoate 100 Yzine {caps Pamoate 100 ([place] MG Oral Pamoat ule} mg [place] Capsule e 100 Health HydrOXYzine mg Care) Pamoate 100 mg Blood Blood active Blood eCW3 Glucose Glucos Glucose Test ([facility] Test - e Test - [facility]) Daily-[place] Daily- active Daily-[place] - eCW3 - [place] - ([facility]) Fluticasone Flutic 1.0 active Fluticaso ne eCW3 Propionate asone {puff Propionate ( [place] 50 MCG/ACT Propio _in_e 50 MCG/ACT [place] nilo ach_n Health 50 ostri Care) MCG/AC l} T pregabalin Lyrica 1.0 active Lyrica 150 eCW3 150 MG Oral 150 MG {caps MG ([place] Capsule ule} [place] [Lyrica] Health Lyrica 150 Care) MG Lancets - Lancet active Lancets - e CW3 s - ([facility]) Fluticasone Flutic 1.0 active Fluticaso ne eCW3 Propionate asone {puff Propionate ( Gary 50 MCG/ACT Propio _in_e 50 MCG/ACT [facility] nilo ach_n Health 50 ostri Care) MCG/AC l} T Multivitami UNK active Multivitami n eCW3 ns - s - ([facility]) Daily-[place] Daily- active Daily-[place] - eCW3 - [place] - ([facility]) lamotrigine Lamotr 1.0 active Lamotrigi ne eCW3 200 MG Oral igine {tabl 200 mg (Hud son Tablet 200 mg et} [place] Lamotrigine Health 200 mg Care) 120 ACTUAT Advair 2.0 active Advair HFA eCW3 Fluticasone HFA {puff 230-21 ([place] [place] propionate 230-21 s} MCG/ACT Rive r 0.23 MCG/AC Health MG/ACTUAT / T Care) salmeterol 0.021 MG/ACTUAT Metered Dose Inhaler [Advair] Advair HFA 230-21 MCG/ACT aripiprazol Aripip 1.0 active Aripipraz ole eCW3 e 10 MG razole {tabl 10 MG ([place] Oral Tablet 10 MG et} [place] Aripiprazol Health e 10 MG Care) ALBUTEROL UNK active ALBUTEROL eCW 3 SULFATE SULFATE ([place] 0.083% 2.5 0.083% 2.5 Jon[place] er mg/3 ml mg/3 ml Health Care) montelukast Singul 1.0 active Singulair 10 eCW3 10 MG Oral air 10 {tabl mg ([place] Tablet mg et_in [place] [Singulair] _the_ Health Singulair eveni Care) 10 mg ng} Isopropyl Alcoho active Alcohol Pre p eCW3 Alcohol 0.7 l Prep 70 % ([place] ML/ML 70 % [place] [facility] Alcohol Care) Prep 70 % 120 ACTUAT Advair 2.0 active Advair HFA eCW3 Fluticasone HFA {puff 230-21 ([place] propionate 230-21 s} MCG/ACT Rive r 0.23 MCG/AC Health MG/ACTUAT / T Care) salmeterol 0.021 MG/ACTUAT Metered Dose Inhaler [Advair] Advair HFA 230-21 MCG/ACT ALBUTEROL UNK suspend ALBUTEROL eC W3 SULFATE ed SULFATE ([place] 0.083% 2.5 0.083% 2.5 Jon[place] er mg/3 ml mg/3 ml Health Care) Calcium 600 Calciu 1.0 active Calcium 6 00 eCW3 + D 600-200 m 600 {tabl + D 600-200 ([place] MG-UNIT + D et} MG-UNIT [place] 600-20 Health 0 Care) MG-UNI T Furosemide Furose 1.0 active Furosemide eCW3 40 MG Oral mide {tabl 40 mg ([place] Tablet 40 mg et} [place] Furosemide Health 40 mg Care) Fluticasone Flutic 1.0 active Fluticaso ne eCW3 Propionate asone {puff Propionate ( [place] 50 MCG/ACT Propio _in_e 50 MCG/ACT [place] nilo ach_n Health 50 ostri Care) MCG/AC l} T Furosemide Furose active Furosemide eCW3 40 MG Oral mide 40 MG ([place] Tablet 40 MG [place] [facility] Care) Zolpidem Ambien 1.0 active Ambien 10 mg eCW3 tartrate 10 10 mg {tabl ([place] MG Oral et_at [place] Tablet _bedt Health [Ambien] madalyn} Care) Ambien 10 mg Furosemide Furose 1.0 active Furosemide eCW3 40 MG Oral mide {tabl 40 mg ([place] Tablet 40 mg et} [place] Furosemide Health 40 mg Care) pregabalin Lyrica 2.0 active Lyrica 100 eCW3 100 MG Oral 100 MG {caps MG ([place] Capsule ule} [place] [Lyrica] [facility] Lyrica 100 Care) MG montelukast Singul 1.0 active Singulair 10 eCW3 10 MG Oral air 10 {tabl mg ([place] Tablet mg et_in [place] [Singulair] _the_ Health Singulair eveni Care) 10 mg ng} Hydroxyzine HydrOX 1.0 active HydrOXYzi ne eCW3 Pamoate 100 Yzine {caps Pamoate 100 ([place] MG Oral Pamoat ule} mg [place] Capsule e 100 Health HydrOXYzine mg Care) Pamoate 100 mg Blood Blood active Blood eCW3 Glucose Glucos Glucose ([place] Monitor e Monitor [place] [facility] w/Device r w/Device Care) System w/Babita ce montelukast Singul 1.0 active Singulair 10 eCW3 10 MG Oral air 10 {tabl mg ([place] Tablet mg et_in [place] [Singulair] _the_ [facility] Singulair eveni Care) 10 mg ng} Blood Blood active Blood eCW3 Glucose Glucos Glucose Test (H udson Test - e Test - [facility]) Acetaminoph Oxycod active Oxycodone -Ac eCW3 en 325 MG / one-Ac etaminophen ([place] Oxycodone etamin 7.5-325 MG Ri aleks Hydrochlori [...] 40 MG Oral mide {tabl 40 mg ([place] Tablet 40 mg et} [place] Furosemide Health 40 mg Care) montelukast Singul 1.0 active Singulair 10 eCW3 10 MG Oral air 10 {tabl mg ([place] Tablet mg et_in [place] [Singulair] _the_ Health Singulair eveni Care) 10 mg ng} Fluticasone Flutic 1.0 active Fluticaso ne eCW3 Propionate asone {puff Propionate ( [place] 50 MCG/ACT Propio _in_e 50 MCG/ACT [place] nilo ach_n Health 50 ostri Care) MCG/AC l} T Ergocalcife ergoca 1 complet Vitamin D2 [place] [address] lcifer ed [place] UNT Oral ol Medical Capsule (vitam Center ergocalcife in D2) rol (Vitam (vitamin in D2) D2) 50,000 (Vitamin unit D2) 50,000 Capsul unit e, Capsule, Ordere Ordered By: d By: janis Badillo, CUAUHTEMOCirection MDDire s: 1 ctions capsule : 1 oral weekly capsul e oral weekly Blood Blood active Blood eCW3 Glucose Glucos Glucose Test (H udson Test - e Test - [facility]) Omeprazole omepra 1 complet Lety t 20 MG zole ed [place] Delayed 20 mg Medical Release capsul Center Oral e,jarrod Capsule yed omeprazole releas 20 mg e(DR/E capsule,del C), ayed Ordere release(DR/ d By: Asaf BARCENAS Ordered By: Alfredo NuñezOrlin MDDire , ctions MDDirection : 1 s: 1 capsul capsule e oral oral daily daily pregabalin Lyrica 1.0 active Lyrica 200 eCW3 200 MG Oral 200 MG {caps MG ([place] Capsule ule} [place] [Lyrica] Health Lyrica 200 Care) MG lamotrigine Lamotr 1.0 active Lamotrigi ne eCW3 200 MG Oral igine {tabl 200 mg ([place] Tablet 200 mg et} [place] Lamotrigine Health 200 mg Care) Fluticasone Flutic 1.0 suspend Fluticas one eCW3 Propionate asone {puff ed Propionate ( [place] 50 MCG/ACT Propio _in_e 50 MCG/ACT [place] nilo ach_n Health 50 ostri Care) MCG/AC l} T Vitamin D UNK 1.0 active Vitamin D eCW 3 58706 UNIT {caps 53031 UNIT (H udson ule} [facility] Care) Vitamin D UNK 1.0 active Vitamin D eCW 3 33084 UNIT {caps 82106 UNIT (H udson ule} [facility] Care) lamotrigine Lamotr 1.0 active Lamotrigi ne eCW3 200 MG Oral igine {tabl 200 mg ([place] Tablet 200 mg et} [place] Lamotrigine Health 200 mg Care) Blood Blood active Blood eCW3 Glucose Glucos Glucose ([place] Monitor e Monitor [place] [facility] Health w/Device r w/Device Care) System w/Babita ce pregabalin Lyrica 1.0 active Lyrica 200 eCW3 200 MG Oral 200 MG {caps MG ([place] Capsule ule} [place] [Lyrica] Health Lyrica 200 Care) MG Hydroxyzine HydrOX 1.0 active HydrOXYzi ne eCW3 Pamoate 100 Yzine {caps Pamoate 100 ([place] MG Oral Pamoat ule} mg [place] Capsule e 100 Health HydrOXYzine mg Care) Pamoate 100 mg Hydroxyzine HydrOX 1.0 active HydrOXYzi ne eCW3 Pamoate 100 Yzine {caps Pamoate 100 ([place] MG Oral Pamoat ule} mg [place] Capsule e 100 Health HydrOXYzine mg Care) Pamoate 100 mg aripiprazol Aripip 1.0 active Aripipraz ole eCW3 e 10 MG razole {tabl 10 MG ([place] Oral Tablet 10 MG et} [place] Aripiprazol Health e 10 MG Care) Vitamin D UNK 1.0 suspend Vitamin D eC W3 78868 UNIT {[place] [address] UNIT (Mandeep leary} [facility]) gabapentin gabape 1 complet Lety t 800 [...] By: d By: Asaf Ron Safo-Orlin Safo-A janis, MDDirection MDDire s: 1 tablet ctions oral [...] By: mcg/Actuati Asaf on HFA Safo-A Aerosol santyari, Inhaler, MDDire Ordered By: ctions Asaf : 2 Safo-Orlin puff , by MDDirection inhala s: 2 puff tion by twice inhalation a day twice a day montelukast markel 1 complet Jose Eduardo nt 10 MG Oral ukast ed [place] Tablet 10 mg Medical montelukast Tablet Center 10 mg , Tablet, Ordere Ordered By: d By: Asaf Ron Safo-Orlin Safo-A , janis, MDDirection MDDire s: 1 tablet ctions oral daily : 1 tablet oral daily Acetaminoph oxyCOD 1 complet Jose Eduardo nt en 325 MG / ONE-ac ed Aki s Oxycodone etamin Medical Hydrochlori ophen Center de 5 MG 5 Oral Tablet mg-325 oxyCODONE-a mg cetaminophe Tablet n 5 mg-325 , mg Tablet, Ordere Ordered By: d By: janis Badillo, MDDirection MDDire s: 1 tablet ctions oral every : 1 six hours tablet PRN PAIN oral every six hours PRN PAIN Vitamin D UNK 1.0 active Vitamin D eCW 3 03920 UNIT {caps 84444 UNIT (H udson ule} [facility]) pregabalin Lyrica 1.0 active Lyrica 150 eCW3 150 MG Oral 150 MG {caps MG ([place] Capsule ule} [place] [Lyrica] Health Lyrica 150 Care) MG Vitamin D UNK 1.0 suspend Vitamin D eC W3 73740 UNIT {[place] [address] UNIT (H udson ule} [facility]) montelukast Singul 1.0 active Singulair 10 eCW3 10 MG Oral air 10 {tabl mg ([place] Tablet mg et_in [place] [Singulair] _[facility]_ [facility] Singulair eveni Care) 10 mg ng} Vitamin D UNK 1.0 active Vitamin D eCW 3 12565 UNIT {caps 91375 UNIT (H udson ule} [facility]) montelukast Singul 1.0 active Singulair 10 eCW3 10 MG Oral air 10 {tabl mg ([place] Tablet mg et_in [place] [Singulair] _[facility]_ [facility] Singulair eveni Care) 10 mg ng} Calcium 600 Calciu 1.0 active Calcium 6 00 eCW3 + D 600-200 m 600 {tabl + D 600-200 ([place] MG-UNIT + D et} MG-UNIT [place] 600-20 [facility] 0 Care) MG-UNI T Multivitami UNK active Multivitami n eCW3 ns - s - ([facility]) Isopropyl Alcoho active Alcohol Pre p eCW3 Alcohol 0.7 l Prep 70 % ([place] ML/ML 70 % [place] [facility] Alcohol Care) Prep 70 % Daily-[place] Daily- active Daily-[place] - eCW3 - [place] - ([facility]) lamotrigine Lamotr 1.0 active Lamotrigi ne eCW3 200 MG Oral igine {tabl 200 mg ([place] Tablet 200 mg et} [place] Lamotrigine Health 200 mg Care) pregabalin Lyrica 1.0 active Lyrica 150 eCW3 150 MG Oral 150 MG {caps MG ([place] Capsule ule} [place] [Lyrica] Health Lyrica 150 Care) MG Calcium 600 Calciu 1.0 active Calcium 6 00 eCW3 + D 600-200 m 600 {tabl + D 600-200 ([place] MG-UNIT + D et} MG-UNIT [place] 600-20 Health 0 Care) MG-UNI T Hydroxyzine HydrOX 1.0 active HydrOXYzi ne eCW3 Pamoate 100 Yzine {caps Pamoate 100 ([place] MG Oral Pamoat ule} mg [place] Capsule e 100 Health HydrOXYzine mg Care) Pamoate 100 mg Hydroxyzine HydrOX 1.0 active HydrOXYzi ne eCW3 Pamoate 100 Yzine {caps Pamoate 100 ([place] MG Oral Pamoat ule} mg [place] Capsule e 100 Health HydrOXYzine mg Care) Pamoate 100 mg Hydroxyzine HydrOX 1.0 active HydrOXYzi ne eCW3 Pamoate 100 Yzine {caps Pamoate 100 ([place] MG Oral Pamoat ule} mg [place] Capsule e 100 Health HydrOXYzine mg Care) Pamoate 100 mg pregabalin Lyrica 1.0 active Lyrica 150 eCW3 150 MG Oral 150 MG {caps MG ([place] Capsule ule} [place] [Lyrica] Health Lyrica 150 Care) MG Lancets - Lancet active Lancets - e CW3 s - ([facility]) Blood Blood active Blood eCW3 Glucose Glucos Glucose ([place] Monitor e Monitor [place] [facility] Health w/Device r w/Device Care) System w/Babita ce Albuterol Albute active Albuterol e CW3 0.83 MG/ML rol Sulfate (2.5 ( [place] Inhalant Sulfat MG/3ML) [place] Solution e (2.5 [...] 70 % ([place] ML/ML 70 % [place] [facility] Alcohol Care) Prep 70 % Isopropyl Alcoho active Alcohol Pre p eCW3 Alcohol 0.7 l Prep 70 % ([place] ML/ML 70 % [place] [facility] Alcohol Care) Prep 70 % Furosemide Furose 1.0 active Furosemide eCW3 40 MG Oral mide {tabl 40 mg ([place] Tablet 40 mg et} [place] Furosemide [facility] 40 mg Care) Acetaminoph Oxycod active Oxycodone -Ac eCW3 en 325 MG / one-Ac etaminophen ([place] Oxycodone etamin 7.5-325 MG Ri aleks [facility] de 7.5 MG 7.5-32 Care) Oral Tablet 5 MG Oxycodone-A cetaminophe n 7.5-325 MG Acetaminoph Oxycod active Oxycodone -Ac eCW3 en 325 MG / one-Ac etaminophen ([place] Oxycodone etamin 7.5-325 MG Ri aleks [facility] de 7.5 MG 7.5-32 Care) Oral Tablet 5 MG Oxycodone-A cetaminophe n 7.5-325 MG lamotrigine Lamotr 1.0 active Lamotrigi ne eCW3 200 MG Oral igine {tabl 200 mg ([place] Tablet 200 mg et} [place] Lamotrigine [facility] 200 mg [facility]) Calcium 600 Calciu 1.0 active Calcium 6 00 eCW3 + D 600-200 m 600 {tabl + D 600-200 ([place] MG-UNIT + D et} MG-UNIT [place] 600-[address]) MG-UNI T Daily-[place] Daily- active Daily-[place] - eCW3 - [place] - ([facility]) Zolpidem Ambien 1.0 active Ambien 10 mg eCW3 tartrate 10 10 mg {tabl ([place] MG Oral et_at [place] Tablet _bedt [facility] [Ambien] madalyn} Care) Ambien 10 mg montelukast Singul 1.0 active Singulair 10 eCW3 10 MG Oral air 10 {tabl mg ([place] Tablet mg et_in [place] [Singulair] _the_ Health Singulair eveni Care) 10 mg ng} Lancets - Lancet active Lancets - e CW3 s - ([facility]) Isopropyl Alcoho active Alcohol Pre p eCW3 Alcohol 0.7 l Prep 70 % ([place] ML/ML 70 % [place] [facility] Alcohol Care) Prep 70 % aripiprazol Aripip 1.0 active Aripipraz ole eCW3 e 10 MG razole {tabl 10 MG ([place] Oral Tablet 10 MG et} [place] Aripiprazol Health e 10 MG Care) ALBUTEROL UNK suspend ALBUTEROL eC W3 SULFATE ed SULFATE ([place] 0.083% 2.5 0.083% 2.5 [place] mg/3 ml mg/3 ml Health Care) ALBUTEROL UNK suspend ALBUTEROL eC W3 SULFATE ed SULFATE ([place] 0.083% 2.5 0.083% 2.5 [place] mg/3 ml mg/3 ml Health Care) lamotrigine Lamotr 1.0 active Lamotrigi ne eCW3 200 MG Oral igine {tabl 200 mg ([place] Tablet 200 mg et} [place] Lamotrigine Health 200 mg Care) Blood Blood active Blood eCW3 Glucose Glucos Glucose ([place] Monitor e Monitor [place] [facility] Health w/Device r w/Device Care) System w/Babita ce Daily-[place] Daily- active Daily-[place] - eCW3 - [place] - ([facility]) Fluticasone Flutic 1.0 suspend Fluticas one eCW3 Propionate asone {puff ed Propionate ( [place] 50 MCG/ACT Propio _in_e 50 MCG/ACT [place] nilo ach_n Health 50 ostri Care) MCG/AC l} T Hydroxyzine HydrOX 1.0 active HydrOXYzi ne eCW3 Pamoate 100 Yzine {caps Pamoate 100 ([place] MG Oral Pamoat ule} mg [place] Capsule e 100 Health HydrOXYzine mg Care) Pamoate 100 mg Blood Blood active Blood eCW3 Glucose Glucos Glucose Test (H udson Test - e Test - [facility]) Blood Blood active Blood eCW3 Glucose Glucos Glucose Test (H udson Test - e Test - [facility]) Blood Blood active Blood eCW3 Glucose Glucos Glucose ([place] Monitor e Monitor [place] [facility] Health w/Device r w/Device Care) System w/Babita ce Fluticasone Flutic 1.0 active Fluticaso ne eCW3 Propionate asone {puff Propionate ( [place] 50 MCG/ACT Propio _in_e 50 MCG/ACT [place] nilo ach_n Health 50 ostri Care) MCG/AC l} T Acetaminoph Oxycod active Oxycodone -Ac eCW3 en 325 MG / one-Ac etaminophen ([place] Oxycodone etamin 7.5-325 MG Vt aleks [facility] oph Health de 7.5 MG 7.5-32 Care) Oral Tablet 5 MG Oxycodone-A cetaminophe n 7.5-325 MG aripiprazol Aripip 1.0 active Aripipraz ole eCW3 e 10 MG razole {tabl 10 MG ([place] Oral Tablet 10 MG et} [place] Aripiprazol Health e 10 MG Care) Fluticasone Flutic 1.0 suspend Fluticas one eCW3 Propionate asone {puff ed Propionate ( [place] 50 MCG/ACT Propio _in_e 50 MCG/ACT [place] nilo ach_n Health 50 ostri Care) MCG/AC l} T Calcium 600 Calciu 1.0 active Calcium 6 00 eCW3 + D 600-200 m 600 {tabl + D 600-200 ([place] MG-UNIT + D et} MG-UNIT [place] 600-20 Health 0 Care) MG-UNI T Hydroxyzine HydrOX 1.0 active HydrOXYzi ne eCW3 Pamoate 100 Yzine {caps Pamoate 100 ([place] MG Oral Pamoat ule} mg [place] Capsule e 100 Health HydrOXYzine mg Care) Pamoate 100 mg Blood Blood active Blood eCW3 Glucose Glucos Glucose ([employer] Monitor e Monitor [facility] [employer] System Health w/Device r w/Device Care) System w/Babita ce Blood Blood active Blood eCW3 Glucose Glucos Glucose ([employer] Monitor e Monitor [place] System [employer] System Health w/Device r w/Device Care) System w/Babita ce Lancets - Lancet active Lancets - e CW3 s - ([facility]) Blood Blood active Blood eCW3 Glucose Glucos Glucose ([place] Monitor e Monitor [place] [facility] Health w/Device r w/Device Care) System w/Babita ce Blood Blood active Blood eCW3 Glucose Glucos Glucose Test (H son Test - e Test - [facility]) ALBUTEROL UNK suspend ALBUTEROL eC W3 SULFATE ed SULFATE ([place] 0.083% 2.5 0.083% 2.5 [place] mg/3 ml mg/3 ml [facility] Care) Acetaminoph Oxycod active Oxycodone -Ac eCW3 en 325 MG / one-Ac etaminophen ([place] Oxycodone etamin 7.5-325 MG Ri aleks Hydrochlori oph Health de 7.5 MG 7.5-32 Care) Oral Tablet 5 MG Oxycodone-A cetaminophe n 7.5-325 MG Fluticasone Flutic 1.0 active Fluticaso ne eCW3 Propionate asone {puff Propionate ( [place] 50 MCG/ACT Propio _in_e 50 MCG/ACT [place] nilo ach_n [facility] 50 ostri Care) MCG/AC l} T Albuterol Albute suspend Albuterol eCW3 0.83 MG/ML rol ed Sulfate (2.5 ( [place] Inhalant Sulfat MG/3ML) [place] Solution e (2.5 0.083% [facility] Albuterol MG/3ML Care) Sulfate ) (2.5 0.083% MG/3ML) 0.083% Blood Blood active Blood eCW3 Glucose Glucos Glucose Test (H son Test - e Test - [facility]) aripiprazol Aripip 1.0 active Aripipraz ole eCW3 e 10 MG razole {tabl 10 MG ([place] Oral Tablet 10 MG et} [place] Aripiprazol Health e 10 MG Care) Multivitami UNK active Multivitami n eCW3 ns - s - ([facility]) Albuterol Albute active Albuterol e CW3 0.83 MG/ML rol Sulfate (2.5 ( [place] Inhalant Sulfat MG/3ML) [place] Solution e (2.5 0.083% Health Albuterol MG/3ML Care) Sulfate ) (2.5 0.083% MG/3ML) 0.083% Multivitami UNK active Multivitami n eCW3 ns - s - ([facility]) Multivitami UNK active Multivitami n eCW3 ns - s - ([facility]) Blood Blood active Blood eCW3 Glucose Glucos Glucose Test ([facility] Test - e Test - [facility]) Furosemide Furose 1.0 active Furosemide eCW3 40 MG Oral mide {tabl 40 mg ([place] Tablet 40 mg et} [place] Furosemide Health 40 mg Care) Vitamin D UNK 1.0 active Vitamin D eCW 3 34525 UNIT {caps 65971 UNIT [facility]) Fluticasone Flutic 1.0 suspend Fluticas one eCW3 Propionate asone {puff ed Propionate ( [place] 50 MCG/ACT Propio _in_e 50 MCG/ACT [place] nilo ach_n Health 50 ostri Care) MCG/AC l} T ALBUTEROL UNK suspend ALBUTEROL eC W3 SULFATE ed SULFATE ([place] 0.083% 2.5 0.083% 2.5 [place] mg/3 ml mg/3 ml Health Care) Isopropyl Alcoho active Alcohol Pre p eCW3 Alcohol 0.7 l Prep 70 % ([place] ML/ML 70 % [place] [facility] Alcohol Care) Prep 70 % Daily-[place] Daily- active Daily-[place] - eCW3 - [place] - ([facility]) Acetaminoph Oxycod active Oxycodone -Ac eCW3 en 325 MG / one-Ac etaminophen ([place] Oxycodone etamin 7.5-325 MG [facility] MG 7.5-32 Care) Oral Tablet 5 MG Oxycodone-A cetaminophe n 7.5-325 MG Acetaminoph Oxycod active Oxycodone -Ac eCW3 en 325 MG / one-Ac etaminophen ([place] Oxycodone etamin 7.5-325 MG Ri aleks [facility] de 7.[facility] MG 7.5-32 Care) Oral Tablet 5 MG Oxycodone-A cetaminophe n 7.5-325 MG ALBUTEROL UNK suspend ALBUTEROL eC W3 SULFATE ed SULFATE ([place] 0.083% 2.5 0.083% 2.5 [place] mg/3 ml mg/3 ml Health Care) Hydroxyzine HydrOX 1.0 active HydrOXYzi ne eCW3 Pamoate 100 Yzine {caps Pamoate 100 ([place] MG Oral Pamoat ule} mg [place] Capsule e 100 Health HydrOXYzine mg Care) Pamoate 100 mg aripiprazol Aripip 1.0 active Aripipraz ole eCW3 e 10 MG razole {tabl 10 MG ([place] Oral Tablet 10 MG et} [place] Aripiprazol Health e 10 MG Care) lamotrigine Lamotr 1.0 active Lamotrigi ne eCW3 200 MG Oral igine {tabl 200 mg ([place] Tablet 200 mg et} [place] Lamotrigine Health 200 mg Care) Zolpidem Ambien 1.0 active Ambien 10 mg eCW3 tartrate 10 10 mg {tabl ([place] MG Oral et_at [place] Tablet _bedt Health [Ambien] madalyn} Care) Ambien 10 mg Calcium 600 Calciu 1.0 active Calcium 6 00 eCW3 + D 600-200 m 600 {tabl + D 600-200 ([place] MG-UNIT + D et} MG-UNIT [place] 600-20 Health 0 Care) MG-UNI T Lancets - Lancet active Lancets - e CW3 s - ([facility] Health Care) lamotrigine Lamotr 1.0 active Lamotrigi ne eCW3 200 MG Oral igine {tabl 200 mg ([place] son Tablet 200 mg et} [place] Lamotrigine Health 200 mg Care) Hydroxyzine HydrOX 1.0 active HydrOXYzi ne eCW3 Pamoate 100 Yzine {caps Pamoate 100 ([place] MG Oral Pamoat ule} mg [place] Capsule e 100 Health HydrOXYzine mg Care) Pamoate 100 mg aripiprazol Aripip 1.0 active Aripipraz ole eCW3 e 10 MG razole {tabl 10 MG ([place] Oral Tablet 10 MG et} [place] Aripiprazol Health e 10 MG Care) montelukast Singul 1.0 active Singulair 10 eCW3 10 MG Oral air 10 {tabl mg ([place] Tablet mg et_in [place] [Singulair] _the_ [facility] Singulair eveni Care) 10 mg ng} Vitamin D UNK 1.0 suspend Vitamin D eC W3 71698 UNIT {[place] [address] UNIT (H udson ule} [facility]) Daily-[place] Daily- active Daily-[place] - eCW3 - [place] - ([facility]) Isopropyl Alcoho active Alcohol Pre p eCW3 Alcohol 0.7 l Prep 70 % ([place] ML/ML 70 % [place] [facility] Alcohol Care) Prep 70 % ALBUTEROL UNK suspend ALBUTEROL eC W3 SULFATE ed SULFATE ([place] 0.083% 2.5 0.083% 2.5 [place] mg/3 ml mg/3 ml [facility]) Albuterol Albute active Albuterol e CW3 0.83 MG/ML rol Sulfate (2.5 ( [place] Inhalant Sulfat MG/3ML) [place] Solution e (2.5 0.083% [facility] Albuterol MG/3ML [facility]) Sulfate ) (2.5 0.083% MG/3ML) 0.083% Furosemide Furose 1.0 active Furosemide eCW3 40 MG Oral mide {tabl 40 mg ([place] Tablet 40 mg et} [place] Furosemide [facility] 40 mg Care) Omeprazole Omepra 1.0 active Omeprazole eCW3 20 MG zole {caps 20 mg ([place] Delayed 20 mg ule} [facility] Oral [facility]) Capsule Omeprazole 20 mg Blood Blood active Blood eCW3 Glucose Glucos Glucose Test ( [facility] - [facility] - [facility]) lamotrigine Lamotr 1.0 active Lamotrigi ne eCW3 200 MG Oral igine {tabl 200 mg ([facility] son Tablet 200 mg et} [place] Lamotrigine [facility] 200 mg Care) Isopropyl Alcoho active Alcohol Pre p eCW3 Alcohol 0.7 l Prep 70 % ([place] ML/ML 70 % [place] [facility] Alcohol Care) Prep 70 % Lancets - Lancet active Lancets - e CW3 s - ([facility]) Zolpidem Ambien 1.0 active Ambien 10 mg eCW3 tartrate 10 10 mg {tabl ([place] MG Oral et_at [place] Tablet _bedt Health [Ambien] madalyn} Care) Ambien 10 mg ALBUTEROL UNK suspend ALBUTEROL eC W3 SULFATE ed SULFATE ([place] 0.083% 2.5 0.083% 2.5 Jon[place] er mg/3 ml mg/3 ml Health Care) Fluticasone Flutic 1.0 active Fluticaso ne eCW3 Propionate asone {puff Propionate ( [place] 50 MCG/ACT Propio _in_e 50 MCG/ACT [place] nilo ach_n Health 50 ostri Care) MCG/AC l} T montelukast Singul 1.0 active Singulair 10 eCW3 10 MG Oral air 10 {tabl mg ([place] Tablet mg et_in [place] [Singulair] _the_ Health Singulair eveni Care) 10 mg ng} Blood Blood active Blood eCW3 Glucose Glucos Glucose ([place] Monitor e Monitor [place] [facility] Health w/Device r w/Device Care) System w/Babita ce Fluticasone Flutic 1.0 suspend Fluticas one eCW3 Propionate asone {puff ed Propionate ( [place] 50 MCG/ACT Propio _in_e 50 MCG/ACT [place] nilo ach_n Health 50 ostri Care) MCG/AC l} T Isopropyl Alcoho active Alcohol Pre p eCW3 Alcohol 0.7 l Prep 70 % ([place] ML/ML 70 % [place] [facility]icated [facility] Alcohol Care) Prep 70 % lamotrigine Lamotr 1.0 active Lamotrigi ne eCW3 200 MG Oral igine {tabl 200 mg ([facility] son Tablet 200 mg et} [place] Lamotrigine Health 200 mg Care) Multivitami UNK active Multivitami n eCW3 ns - s - ([facility]) aripiprazol Aripip 1.0 active Aripipraz ole eCW3 e 10 MG razole {tabl 10 MG ([place] Oral Tablet 10 MG et} [place] Aripiprazol Health e 10 MG Care) montelukast Singul 1.0 active Singulair 10 eCW3 10 MG Oral air 10 {tabl mg ([place] Tablet mg et_in [place] [Singulair] _the_ Health Singulair eveni Care) 10 mg ng} Omeprazole Omepra 1.0 active Omeprazole eCW3 20 MG zole {caps 20 mg ([place] Delayed 20 mg ule} [facility]) Capsule Omeprazole 20 mg lamotrigine Lamotr 1.0 active Lamotrigi ne eCW3 200 MG Oral igine {tabl 200 mg ([place] Tablet 200 mg et} [place] Lamotrigine Health 200 mg Care) lamotrigine Lamotr 1.0 active Lamotrigi ne eCW3 200 MG Oral igine {tabl 200 mg ([place] son Tablet 200 mg et} [place] Lamotrigine Health 200 mg [facility]) 120 ACTUAT Advair 2.0 active Advair HFA eCW3 Fluticasone HFA {puff 230-21 ([place] propionate 230-21 s} MCG/ACT Rive r 0.23 MCG/AC Health MG/ACTUAT / T Care) salmeterol 0.021 MG/ACTUAT Metered Dose Inhaler [Advair] Advair HFA 230-21 MCG/ACT Albuterol Albute active Albuterol e CW3 0.83 MG/ML rol Sulfate (2.5 ( [place] Inhalant Sulfat MG/3ML) [place] Solution e (2.5 0.083% Health Albuterol MG/3ML [facility]) Sulfate ) (2.5 0.083% MG/3ML) 0.083% Blood Blood active Blood eCW3 Glucose Glucos Glucose Test (H udson Test - e Test - [facility]) Multivitami UNK active Multivitami n eCW3 ns - s - ([facility]) Furosemide Furose 1.0 active Furosemide eCW3 40 MG Oral mide {tabl 40 mg ([place] Tablet 40 mg et} [place] Furosemide Health 40 mg [facility]) 120 ACTUAT Advair 2.0 active Advair HFA eCW3 Fluticasone HFA {puff 230-21 ([place] propionate 230-21 s} MCG/ACT Rive r 0.23 MCG/AC Health MG/ACTUAT / T Care) salmeterol 0.021 MG/ACTUAT Metered Dose Inhaler [Advair] Advair HFA 230-21 MCG/ACT Omeprazole Omepra 1.0 active Omeprazole eCW3 20 MG zole {caps 20 mg ([place] Delayed 20 mg ule} [facility]) Capsule Omeprazole 20 mg Daily-[place] Daily- active Daily-[place] - eCW3 - [place] - ([facility]) pregabalin Lyrica 2.0 active Lyrica 100 eCW3 100 MG Oral 100 MG {caps MG ([place] Capsule ule} [place] [Lyrica] Health Lyrica 100 Care) MG aripiprazol Aripip 1.0 active Aripipraz ole eCW3 e 10 MG razole {tabl 10 MG ([place] Oral Tablet 10 MG et} [place] Aripiprazol Health e 10 MG Care) Omeprazole Omepra 1.0 active Omeprazole eCW3 20 MG zole {caps 20 mg ([place] Delayed 20 mg ule} [facility] Oral Care) Capsule Omeprazole 20 mg aripiprazol Aripip 1.0 active Aripipraz ole eCW3 e 10 MG razole {tabl 10 MG ([place] Oral Tablet 10 MG et} [place] Aripiprazol Health e 10 MG Care) Hydroxyzine HydrOX 1.0 active HydrOXYzi ne eCW3 Pamoate 100 Yzine {caps Pamoate 100 ([place] MG Oral Pamoat ule} mg [place] Capsule e 100 Health HydrOXYzine mg Care) Pamoate 100 mg Isopropyl Alcoho active Alcohol Pre p eCW3 Alcohol 0.7 l Prep 70 % ([place] ML/ML 70 % [facility] Alcohol Care) Prep 70 % Omeprazole Omepra 1.0 active Omeprazole eCW3 20 MG zole {caps 20 mg ([place] Delayed 20 mg ule} [facility] Oral Care) Capsule Omeprazole 20 mg lamotrigine Lamotr 1.0 active Lamotrigi ne eCW3 200 MG Oral igine {tabl 200 mg ([place] Tablet 200 mg et} [place] Lamotrigine Health 200 mg Care) Daily-[place] Daily- active Daily-[place] - eCW3 - [place] - ([facility]) aripiprazol Aripip 1.0 active Aripipraz ole eCW3 e 10 MG razole {tabl 10 MG ([place] Oral Tablet 10 MG et} [place] Aripiprazol Health e 10 MG Care) Isopropyl Alcoho active Alcohol Pre p eCW3 Alcohol 0.7 l Prep 70 % ([place] ML/ML 70 % [facility] Alcohol Care) Prep 70 % Albuterol Albute active Albuterol e CW3 0.83 MG/ML rol Sulfate (2.5 ( [place] Inhalant Sulfat MG/3ML) [place] Solution e (2.5 0.083% Health Albuterol MG/3ML Care) Sulfate ) (2.5 0.083% MG/3ML) 0.083% montelukast Singul 1.0 active Singulair 10 eCW3 10 MG Oral air 10 {tabl mg ([place] Tablet mg et_in [place] [Singulair] _the_ Health Singulair eveni Care) 10 mg ng} Acetaminoph Oxycod active Oxycodone -Ac eCW3 en 325 MG / one-Ac etaminophen ([place] Oxycodone etamin 7.5-325 MG [facility] MG 7.5-32 Care) Oral Tablet 5 MG Oxycodone-A cetaminophe n 7.5-325 MG Albuterol Albute active Albuterol e CW3 0.83 MG/ML rol Sulfate (2.5 ( [place] Inhalant Sulfat MG/3ML) [place] Solution e (2.5 0.083% Health Albuterol MG/3ML Care) Sulfate ) (2.5 0.083% MG/3ML) 0.083% Multivitami UNK active Multivitami n eCW3 ns - s - ([facility]) Omeprazole Omepra 1.0 active Omeprazole eCW3 20 MG zole {caps 20 mg ([place] Delayed 20 mg ule} [facility] Oral Care) Capsule Omeprazole 20 mg Acetaminoph Oxycod active Oxycodone -Ac eCW3 en 325 MG / one-Ac etaminophen ([place] Oxycodone etamin 7.5-325 MG Ri ale[facility] de 7.[facility] MG 7.5-32 Care) Oral Tablet 5 MG Oxycodone-A cetaminophe n 7.5-325 MG Calcium 600 Calciu 1.0 active Calcium 6 00 eCW3 + D 600-200 m 600 {tabl + D 600-200 ([place] MG-UNIT + D et} MG-UNIT [place] 600-20 Health 0 Care) MG-UNI T Calcium 600 Calciu 1.0 active Calcium 6 00 eCW3 + D 600-200 m 600 {tabl + D 600-200 ([place] MG-UNIT + D et} MG-UNIT [place] 600-20 Health 0 Care) MG-UNI T Omeprazole Omepra 1.0 active Omeprazole eCW3 20 MG zole {caps 20 mg ([place] Delayed 20 mg ule} [facility] Oral Care) Capsule Omeprazole 20 mg Daily-[place] Daily- active Daily-[place] - eCW3 - [place] - ([facility]) Acetaminoph Oxycod suspend Oxycodon e-Ac eCW3 en 325 MG / one-Ac ed etaminophen ([place] Oxycodone etamin 7.5-325 MG Ri ale[facility] de 7.5 MG 7.5-32 Care) Oral [...] MG {caps MG ([place] Capsule ule} [place] [Lyrica] [facility] Lyrica 100 Care) MG Omeprazole Omepra 1.0 active Omeprazole eCW3 20 MG zole {caps 20 mg ([place] Delayed 20 mg ule} [facility] Oral Care) Capsule Omeprazole 20 mg Acetaminoph Oxycod active Oxycodone -Ac eCW3 en 325 MG / one-Ac etaminophen ([place] Oxycodone etamin 7.5-325 MG Ri aleks [facility] Health de 7.5 MG 7.5-32 Care) Oral Tablet 5 MG Oxycodone-A cetaminophe n 7.5-325 MG Fluticasone Flutic 1.0 active Fluticaso ne eCW3 Propionate asone {puff Propionate ( [place] 50 MCG/ACT Propio _in_e 50 MCG/ACT [place] nilo ach_n Health 50 ostri Care) MCG/AC l} T aripiprazol Aripip 1.0 active Aripipraz ole eCW3 e 10 MG razole {tabl 10 MG ([place] Oral Tablet 10 MG et} [place] Aripiprazol Health e 10 MG Care) Blood Blood active Blood eCW3 Glucose Glucos Glucose ([place] Monitor e Monitor [place] [facility] Health w/Device r w/Device Care) System w/Babita ce Omeprazole Omepra 1.0 active Omeprazole eCW3 20 MG zole {caps 20 mg ([place] Delayed 20 mg ule} [place] Release [facility] Oral Care) Capsule Omeprazole 20 mg pregabalin Lyrica 2.0 active Lyrica 100 eCW3 100 MG Oral 100 MG {caps MG ([place] Capsule ule} [place] [Lyrica] Health Lyrica 100 Care) MG lamotrigine Lamotr 1.0 active Lamotrigi ne eCW3 200 MG Oral igine {tabl 200 mg ([place] Tablet 200 mg et} [place] Lamotrigine Health 200 mg Care) Acetaminoph Oxycod suspend Oxycodon e-Ac eCW3 en 325 MG / one-Ac ed etaminophen ([place] Oxycodone etamin 7.5-325 MG Ri ale[place] Hydrochlori ophen Health de 7.5 MG 7.5-32 Care) Oral Tablet 5 MG Oxycodone-A cetaminophe n 7.5-325 MG Albuterol Albute suspend Albuterol eCW3 0.83 MG/ML rol ed Sulfate (2.5 ( [place] Inhalant Sulfat MG/3ML) [place] Solution e (2.5 0.083% Health Albuterol MG/3ML Care) Sulfate ) (2.5 0.083% MG/3ML) 0.083% Acetaminoph Oxycod active Oxycodone -Ac eCW3 en 325 MG / one-Ac etaminophen ([place] Oxycodone etamin 7.5-325 MG Ri ale[place] Hydrochlori ophen Health de 7.5 MG 7.5-32 Care) Oral Tablet 5 MG Oxycodone-A cetaminophe n 7.5-325 MG lamotrigine Lamotr 1.0 active Lamotrigi ne eCW3 200 MG Oral igine {tabl 200 mg ([place] Tablet 200 mg et} [place] Lamotrigine Health 200 mg Care) Acetaminoph Oxycod active Oxycodone -Ac eCW3 en 325 MG / one-Ac etaminophen ([place] Oxycodone etamin 7.5-325 MG Ri aleks Hydrochlori ophen Health de 7.5 MG 7.5-32 Care) Oral Tablet 5 MG Oxycodone-A cetaminophe n 7.5-325 MG aripiprazol Aripip 1.0 active Aripipraz ole eCW3 e 10 MG razole {tabl 10 MG ([place] Oral Tablet 10 MG et} [place] Aripiprazol Health e 10 MG Care) Daily-[place] Daily- active Daily-[place] - eCW3 - [place] - ([facility]) Lancets - Lancet active Lancets - e CW3 s - ([facility]) montelukast Singul 1.0 active Singulair 10 eCW3 10 MG Oral air 10 {tabl mg ([place] Tablet mg et_in [place] [Singulair] _the_ Health Singulair eveni Care) 10 mg ng} Fluticasone Flutic 1.0 active Fluticaso ne eCW3 Propionate asone {puff Propionate ( [place] 50 MCG/ACT Propio _in_e 50 MCG/ACT [place] nilo ach_n Health 50 ostri Care) MCG/AC l} T Calcium 600 Calciu 1.0 active Calcium 6 00 eCW3 + D 600-200 m 600 {tabl + D 600-200 ([place] MG-UNIT + D et} MG-UNIT [place] 600-20 Health 0 Care) MG-UNI T Blood Blood active Blood eCW3 Glucose Glucos Glucose Test (H udson Test - e Test - [facility]) Multivitami UNK active Multivitami n eCW3 ns - s - ([facility]) Omeprazole Omepra 1.0 active Omeprazole eCW3 20 MG zole {caps 20 mg ([place] Delayed 20 mg ule} [place] Release [facility] Oral Care) Capsule Omeprazole 20 mg Hydroxyzine HydrOX 1.0 active HydrOXYzi ne eCW3 Pamoate 100 Yzine {caps Pamoate 100 ([place] MG Oral Pamoat ule} mg [place] Capsule e 100 Health HydrOXYzine mg Care) Pamoate 100 mg aripiprazol Aripip 1.0 active Aripipraz ole eCW3 e 10 MG razole {tabl 10 MG ([place] Oral Tablet 10 MG et} [place] Aripiprazol Health e 10 MG Care) Isopropyl Alcoho active Alcohol Pre p eCW3 Alcohol 0.7 l Prep 70 % ([place] ML/ML 70 % [place] [facility] Alcohol Care) Prep 70 % Omeprazole Omepra 1.0 active Omeprazole eCW3 20 MG zole {caps 20 mg ([place] Delayed 20 mg ule} [facility] Oral Care) Capsule Omeprazole 20 mg Lancets - Lancet active Lancets - e CW3 s - ([facility]) Daily-[place] Daily- active Daily-[place] - eCW3 - [place] - ([facility]) Lancets - Lancet active Lancets - e CW3 s - ([facility]) aripiprazol Aripip 1.0 active Aripipraz ole eCW3 e 10 MG razole {tabl 10 MG ([place] Oral Tablet 10 MG et} [place] Aripiprazol Health e 10 MG Care) Blood Blood active Blood eCW3 Glucose Glucos Glucose Test (H udson Test - e Test - [facility]) Multivitami UNK active Multivitami n eCW3 ns - s - ([facility]) Multivitami UNK active Multivitami n eCW3 ns - s - ([facility]) Omeprazole omepra 1 complet Lety t 20 MG zole ed [place] Delayed 20 mg Medical Release capsul Center Oral e,jarrod Capsule yed omeprazole releas 20 mg e(DR/Yari capsule,del C), ayed Ordere release(/ d By: Deepika BARCENAS Ordered By: Deepika Jovelire lyndsey Jovelirection : 1 s: 1 capsul capsule e oral oral daily daily Acetaminoph Oxycod suspend Oxycodon e-Ac eCW3 en 325 MG / one-Ac ed etaminophen ([place] Oxycodone etamin 7.5-325 MG Ri aleks Hydrochlor oph Health de 7.5 MG 7.5-32 Care) [...] mg {tabl ([place] MG Oral et_at [facility] _[facility] [Ambien] [facility]} [facility]) Ambien 10 mg gabapentin gabape 1 complet [...] (H udson Test - e Test - [facility]) 60 ACTUAT flutic 2 complet Advair HFA [...] Blood active Blood eCW3 Glucose Glucos Glucose ([place] Monitor e Monitor [place] [facility] Health w/Device r w/Device Care) System w/Babita ce Ergocalcife ergoca 1 complet Vitamin D2 [place] [address] lcifer ed [place] UNT Oral ol Medical [...] Ordered By: Arcadio Poe d By: Deepika Jovelirection Jin, s: 1 tablet MDDire oral twice [...] CW3 0.83 MG/ML rol Sulfate (2.5 ( [place] Inhalant Sulfat MG/3ML) [place] Solution e (2.5 0.083% Health Albuterol MG/3ML Care) Sulfate ) (2.5 0.083% MG/3ML) 0.083% Blood Blood active Blood eCW3 Glucose Glucos Glucose ([place] Monitor e Monitor [place] [facility] Health w/Device r w/Device Care) System w/Babita ce Blood Blood active Blood eCW3 Glucose Glucos Glucose ([place] Monitor e Monitor [place] [facility] Health w/Device r w/Device Care) System w/Babita ce Fluticasone Flutic 1.0 active Fluticaso ne eCW3 Propionate asone {puff Propionate ( [place] 50 MCG/ACT Propio _in_e 50 MCG/ACT [place] nilo ach_n Health 50 ostri Care) MCG/AC l} T Calcium 600 Calciu 1.0 active Calcium 6 00 eCW3 + D 600-200 m 600 {tabl + D 600-200 ([place] MG-UNIT + D et} MG-UNIT [place] 600-20 Health 0 Care) MG-UNI T ALBUTEROL UNK active ALBUTEROL eCW 3 SULFATE SULFATE ([place] 0.083% 2.5 0.083% 2.5 Joni er mg/3 ml mg/3 ml Health Care) Furosemide Furose 1.0 active Furosemide eCW3 40 MG Oral mide {tabl 40 mg ([place] Tablet 40 mg et} [place] Furosemide Health 40 mg Care) Daily-[place] Daily- active Daily-[place] - eCW3 - [place] - ([facility]) Albuterol Albute suspend Albuterol eCW3 0.83 MG/ML rol ed Sulfate (2.5 ( [place] Inhalant Sulfat MG/3ML) [place] Solution e (2.5 0.083% Health Albuterol MG/3ML Care) Sulfate ) (2.5 0.083% MG/3ML) 0.083% Acetaminoph Oxycod active Oxycodone -Ac eCW3 en 325 MG / one-Ac etaminophen ([place] Oxycodone etamin 7.5-325 MG Ri aleks Hydrochlor oph Health de 7.5 MG 7.5-32 Care) Oral Tablet 5 MG Oxycodone-A cetaminophe n 7.5-325 MG Blood Blood active Blood eCW3 Glucose Glucos Glucose Test (H udson Test - e Test - [facility]) Albuterol Albute active Albuterol e CW3 0.83 MG/ML rol Sulfate (2.5 ( [place] Inhalant Sulfat MG/3ML) [place] Solution e (2.5 [...] mg {tabl ([place] MG Oral et_at [place] [facility] Care) Ambien 10 mg Zolpidem Ambien 1.0 active Ambien 10 mg eCW3 tartrate 10 10 mg {tabl ([place] MG Oral et_at [place] [facility] madalyn} Care) Ambien 10 mg No Known complet eCW2 Medications ed ([facility]) Hydroxyzine HydrOX 1.0 active HydrOXYzi ne eCW3 Pamoate 100 Yzine {caps Pamoate 100 ([place] MG Oral Pamoat ule} mg [place] Capsule e 100 Health HydrOXYzine mg Care) Pamoate 100 mg Blood Blood active Blood eCW3 Glucose Glucos Glucose Test ([facility] Test - e [facility]) Multivitami UNK active Multivitami n eCW3 ns - s - ([facility]) Hydroxyzine HydrOX 1.0 active HydrOXYzi ne eCW3 Pamoate 100 Yzine {caps Pamoate 100 ([place] MG Oral Pamoat ule} mg [place] Capsule e 100 [facility] HydrOXYzine mg [facility]) Pamoate 100 mg pregabalin Lyrica 1.0 active Lyrica 150 eCW3 150 MG Oral 150 MG {caps MG ([facility] on Capsule ule} [place] [Lyrica] [facility] Lyrica 150 [facility]) MG Unknown complet eCW2 Medications ed ([facility]) Ibuprofen Ibupro active Ibuprofen e CW3 800 MG Oral fen 800 [facility]) Blood Blood active Blood eCW3 Glucose Glucos Glucose Test ([facility] Test - e [facility]) ALBUTEROL UNK suspend ALBUTEROL eC W3 SULFATE ed SULFATE ([place] 0.083% 2.5 0.083% 2.5 [place]i er mg/3 ml mg/3 ml [facility]) Calcium 600 Calciu 1.0 active Calcium 6 00 eCW3 + D 600-200 m 600 {tabl + D 600-200 ([place] MG-UNIT + D et} MG-UNIT [place] 600-20 [facility] 0 [facility]) MG-UNI T Furosemide Furose 1.0 active Furosemide eCW3 40 MG Oral mide {tabl 40 mg ([place] Tablet 40 mg et} [place] Furosemide [facility] 40 mg Care) ALBUTEROL UNK suspend ALBUTEROL eC W3 SULFATE ed SULFATE ([place] 0.083% 2.5 0.083% 2.5 Joni er mg/3 ml mg/3 ml Health Care) Acetaminoph Oxycod active Oxycodone -Ac eCW3 en 325 MG / one-Ac etaminophen ([place] Oxycodone etamin 7.5-325 MG Ri ale[facility] de 7.5 MG 7.5-32 Care) Oral Tablet 5 MG Oxycodone-A cetaminophe n 7.5-325 MG Hydroxyzine HydrOX 1.0 active HydrOXYzi ne eCW3 Pamoate 100 Yzine {caps Pamoate 100 ([place] MG Oral Pamoat ule} mg [place] Capsule e 100 Health HydrOXYzine mg Care) Pamoate 100 mg Isopropyl Alcoho active Alcohol Pre p eCW3 Alcohol 0.7 l Prep 70 % ([place] ML/ML 70 % [place] [facility]icated [facility] Alcohol Care) Prep 70 % Vitamin D UNK 1.0 suspend Vitamin D eC W3 14036 UNIT {[place] [address] UNIT (H udson ule} [facility]) pregabalin Lyrica 2.0 active Lyrica 100 eCW3 100 MG Oral 100 MG {caps MG ([place] Capsule ule} [place] [Lyrica] [facility] Lyrica 100 Care) MG aripiprazol Aripip 1.0 active Aripipraz ole eCW3 e 10 MG razole {tabl 10 MG ([place] Oral Tablet 10 MG et} [place] Aripiprazol Health e 10 MG Care) Vitamin D UNK 1.0 suspend Vitamin D eC W3 02786 UNIT {[place] [address] UNIT (H udson ule} [place] Health Care) Blood Blood active Blood eCW3 Glucose Glucos Glucose Test (H udson Test - e Test - [facility]) Hydroxyzine HydrOX 1.0 active HydrOXYzi ne eCW3 Pamoate 100 Yzine {caps Pamoate 100 ([place] MG Oral Pamoat ule} mg [place] Capsule e 100 Health HydrOXYzine mg Care) Pamoate 100 mg Isopropyl Alcoho active Alcohol Pre p eCW3 Alcohol 0.7 l Prep 70 % ([place] ML/ML 70 % [place] [facility] Alcohol Care) Prep 70 % Isopropyl Alcoho active Alcohol Pre p eCW3 Alcohol 0.7 l Prep 70 % ([place] ML/ML 70 % [place] [facility] Alcohol Care) Prep 70 % Albuterol Albute active Albuterol e CW3 0.83 MG/ML rol Sulfate (2.5 ( [place] Inhalant Sulfat MG/3ML) [place] Solution e (2.5 0.083% Health Albuterol MG/3ML Care) Sulfate ) (2.5 0.083% MG/3ML) 0.083% Multivitami UNK active Multivitami n eCW3 ns - s - ([facility]) Calcium 600 Calciu 1.0 active Calcium 6 00 eCW3 + D 600-200 m 600 {tabl + D 600-200 ([place] MG-UNIT + D et} MG-UNIT [place] 600-[address]) MG-UNI T Calcium 600 Calciu 1.0 active Calcium 6 00 eCW3 + D 600-200 m 600 {tabl + D 600-200 ([place] MG-UNIT + D et} MG-UNIT [place] 600-[address]) MG-UNI T Vitamin D UNK 1.0 suspend Vitamin D eC W3 88610 UNIT {[place] 7[address] UNIT (H udson ule} [facility]) Multivitami UNK active Multivitami n eCW3 ns - s - ([facility]) Lancets - Lancet active Lancets - e CW3 s - ([facility]) ALBUTEROL UNK active ALBUTEROL eCW 3 SULFATE SULFATE ([place] 0.083% 2.5 0.083% 2.5 Joni er mg/3 ml mg/3 ml Health Care) Omeprazole Omepra 1.0 active Omeprazole eCW3 20 MG zole {caps 20 mg ([place] Delayed 20 mg ule} [facility] Health Oral Care) Capsule Omeprazole 20 [...] MG {caps MG ([place] Capsule ule} [place] [Lyrica] [facility] Lyrica 100 Care) MG Zolpidem Ambien 1.0 active Ambien 10 mg eCW3 tartrate 10 10 mg {tabl ([place] MG Oral et_at [place] Tablet _bedt Health [Ambien] madalyn} Care) Ambien 10 mg Multivitami UNK active Multivitami n eCW3 ns - s - ([facility] Care) Acetaminoph Oxycod active Oxycodone -Ac eCW3 en 325 MG / one-Ac etaminophen ([place] Oxycodone etamin 7.5-325 MG Ri [facility] de 7.5 MG 7.5-32 Care) Oral Tablet 5 MG Oxycodone-A cetaminophe n 7.5-325 MG pregabalin Lyrica 1.0 active Lyrica 150 eCW3 150 MG Oral 150 MG {caps MG ([place] Capsule ule} [place] [Lyrica] Health Lyrica 150 Care) MG Acetaminoph Oxycod active Oxycodone -Ac eCW3 en 325 MG / one-Ac etaminophen ([place] Oxycodone etamin 7.5-325 MG Ri aleks Hydrochlori oph Health de 7.5 MG 7.5-32 Care) Oral Tablet 5 MG Oxycodone-A cetaminophe n 7.5-325 MG Isopropyl Alcoho active Alcohol Pre p eCW3 Alcohol 0.7 l Prep 70 % ([place] ML/ML 70 % [place] Medicated Health [facility] Alcohol Care) Prep 70 % Lancets - Lancet active Lancets - e CW3 s - ([facility]) Blood Blood active Blood eCW3 Glucose Glucos Glucose ([place] Monitor e Monitor [place] [facility] Health w/Device r w/Device Care) System w/Babita ce Isopropyl Alcoho active Alcohol Pre p eCW3 Alcohol 0.7 l Prep 70 % ([place] ML/ML 70 % [place] Medicated [facility] Alcohol Care) Prep 70 % Hydroxyzine HydrOX 1.0 active HydrOXYzi ne eCW3 Pamoate 100 Yzine {caps Pamoate 100 ([place] MG Oral Pamoat ule} mg [place] Capsule e 100 Health HydrOXYzine mg Care) Pamoate 100 mg Lancets - Lancet active Lancets - e CW3 s - ([facility]) Ibuprofen Ibupro active Ibuprofen e CW3 800 MG Oral fen 800 [facility]) 120 ACTUAT Advair 2.0 active Advair HFA eCW3 Fluticasone HFA {puff 230-21 ([place] propionate 230-21 s} MCG/ACT Rive r 0.23 MCG/AC Health MG/ACTUAT / T Care) salmeterol 0.021 MG/ACTUAT Metered Dose Inhaler [Advair] Advair HFA 230-21 MCG/ACT lamotrigine Lamotr 1.0 active Lamotrigi ne eCW3 200 MG Oral igine {tabl 200 mg ([place] son Tablet 200 mg et} [place] Lamotrigine Health 200 mg Care) Albuterol Albute active Albuterol e CW3 0.83 MG/ML rol Sulfate (2.5 ( [place] Inhalant Sulfat MG/3ML) [place] Solution e (2.5 0.083% Health Albuterol MG/3ML [facility]) Sulfate ) (2.5 0.083% MG/3ML) 0.083% Daily-[place] Daily- active Daily-[place] - eCW3 - [place] - ([facility]) pregabalin Lyrica 1.0 active Lyrica 150 eCW3 150 MG Oral 150 MG {caps MG ([place] Capsule ule} [place] [Lyrica] [facility] Lyrica 150 Care) MG aripiprazol Aripip 1.0 active Aripipraz ole eCW3 e 10 MG razole {tabl 10 MG ([place] Oral Tablet 10 MG et} [place] Aripiprazol Health e 10 MG Care) Insurance Providers Payer name Policy type Policy ID Covered Covered constitution party's Policy P ana m / Coverage constitution party ID relationship to Pizarro Inf ormation type pizarro [facility] MEDICAID [id number] SP [id number] O MVP/HHP [id number] self [id number] MVP/HHP O [id number] 01 [id number] MVP PSYCH OP O [id number] 01 [id number] [place] [id number] self [id number] HEALTH OPTION [place] O [id number] 01 [id number] HEALTH OPTION [place] [id number] self [id number] HEALTH OPTIONS MVP/HHP O [id number] 01 [id number] 600 W [id number] 01 [id number] [facility] [id number] 01 [id number] 600 HEALTH ACUTE W [id number] 01 [id number] O [id number] 01 [id number] MEDICAID [id number] [facility] HEALTH [id number] PLANS MVP MEDICAID [id number] SP [id number] [facility] Problems, Conditions, and Diagnoses Code Display Name Description Problem Effective Data Type Dates Source(s) K14.6 Tongue pain Tongue pain Problem 12/29/2019 eCW3 12:00:00 AM ([facility]) L89.90 Pressure ulcer of Bed sore Problem 09/18/2019 eCW3 unspecified site, 12:00:00 AM ([facility] n unspecified stage [facility]) E78.5 Hyperlipidemia Hyperlipidemia, Problem 09/18/2019 eCW3 unspecified 12:00:00 AM ([facility]) E78.5 Hyperlipidemia Hyperlipidemia, Problem 09/18/2019 eCW3 unspecified 12:00:00 AM ([facility]) L89.90 Pressure ulcer of Bed sore Problem 09/18/2019 eCW3 unspecified site, 12:00:00 [facility] E11.42 Diabetic polyneuropathy Diabetic Problem 08/18/2019 e CW3 polyneuropathy 12:00:00 AM ([facility]) E11.42 Diabetic polyneuropathy Diabetic Problem 08/18/2019 e CW3 polyneuropathy 12:00:00 AM ([facility]) E11.42 Diabetic polyneuropathy Diabetic Problem 08/18/2019 e CW3 polyneuropathy 12:00:00 AM ([facility]) E11.21 Type 2 diabetes Type 2 diabetes Problem 05/15/2019 eCW3 mellitus with diabetic mellitus with diabetic 1 2:00:00 AM ([place] nephropathy, nephropathy, EST [place] unspecified whether unspecified whether Health middle or intermediate school principal insulin use middle or intermediate school principal insulin use Care) E11.21 Type 2 diabetes Type 2 diabetes Problem 05/15/2019 eCW3 mellitus with diabetic mellitus with diabetic 1 2:00:00 AM ([place] nephropathy, nephropathy, EST [place] unspecified whether unspecified whether Health middle or intermediate school principal insulin use fpc insulin use Care) E11.21 Type 2 diabetes Type 2 diabetes Problem 05/15/2019 eCW3 mellitus with diabetic mellitus with diabetic 1 2:00:00 AM ([place] nephropathy, nephropathy, EST [place] unspecified whether unspecified whether Health fpc insulin use middle or intermediate school principal insulin use Care) E11.42 Type 2 diabetes Type 2 diabetes Problem 04/08/2019 eCW3 mellitus with diabetic mellitus with diabetic 1 2:00:00 AM ([place] polyneuropathy, polyneuropathy, EST Rive r unspecified whether unspecified whether Health fpc insulin use middle or intermediate school principal insulin use Care) G95.9 Myelopathy Myelopathy Problem 03/10/2019 eCW3 12:00:00 AM ([facility]) G95.9 Myelopathy Myelopathy Problem 03/10/2019 eCW3 12:00:00 AM ([facility]) G95.9 Myelopathy Myelopathy Problem 03/10/2019 eCW3 12:00:00 AM ([facility]) G95.9 Myelopathy Myelopathy Problem 03/10/2019 eCW3 12:00:00 AM ([facility]) E11.40 Diabetes mellitus with Diabetes mellitus with Problem 0 01/01/2019 eCW3 neuropathy neuropathy 12:00:00 AM ([facility]) E11.40 Diabetes mellitus with Diabetes mellitus with Problem 0 01/01/2019 eCW3 neuropathy neuropathy 12:00:00 AM ([facility]) E11.40 Diabetes mellitus with Diabetes mellitus with Problem 0 01/01/2019 eCW3 neuropathy neuropathy 12:00:00 AM ([facility]) E66.01 Morbid (severe) obesity Morbid (severe) Problem 019 eCW3 due to excess calories obesity due to excess 12 :00:00 AM ([place] calories [facility]) E11.620 Type 2 diabetes Type 2 diabetes Problem 12/12/2018 eCW3 mellitus with diabetic mellitus with diabetic 1 2:00:00 AM ([place] dermatitis dermatitis [facility]) E11.620 Type 2 diabetes Type 2 diabetes Problem 12/12/2018 eCW3 mellitus with diabetic mellitus with diabetic 1 2:00:00 AM ([place] dermatitis dermatitis [facility]) 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 Problem 12/12/2018 eCW3 associated with mellitus with diabetic 12:00:00 AM ([place] diabetes mellitus type dermatitis [facility] Ri aleks 2 [facility]) 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 Problem 12/12/2018 eCW3 associated with mellitus with diabetic 12:00:00 AM ([place] diabetes mellitus type dermatitis T [place] 2 [facility]) F17.210 Cigarette smoker Cigarette smoker Problem 11/18/2018 eC W3 12:00:00 AM ([facility]) E11.9 Diabetes mellitus Diabetes mellitus Problem 08/27/2018 eCW3 12:00:00 AM ([facility]) E11.9 Diabetes mellitus Diabetes mellitus Problem 08/27/2018 eCW3 12:00:00 AM ([facility]) 272.0 Hypercholesterolemia Hypercholesterolemia Problem 08/27 eCW3 12:00:00 AM ([place] [facility]) E11.9 Diabetes mellitus Diabetes mellitus Problem 08/27/2018 eCW3 12:00:00 AM ([facility]) 272.0 Hypercholesterolemia Hypercholesterolemia Problem 08/27 eCW3 12:00:00 AM ([facility]) E11.9 Diabetes mellitus Diabetes mellitus Problem 08/27/2018 eCW3 12:00:00 AM ([facility]) 272.0 Hypercholesterolemia Hypercholesterolemia Problem 08/27 eCW3 12:00:00 AM ([facility]) E11.9 Diabetes mellitus Diabetes mellitus Problem 08/27/2018 eCW3 12:00:00 AM ([facility]) G62.9 Polyneuropathy Polyneuropathy Problem 08/01/2018 eCW3 12:00:00 AM ([facility]) G62.9 Polyneuropathy Polyneuropathy Problem 08/01/2018 eCW3 12:00:00 AM ([facility]) G62.9 Polyneuropathy Polyneuropathy Problem 08/01/2018 eCW3 12:00:00 AM ([facility]) G62.9 Polyneuropathy Polyneuropathy Problem 08/01/2018 eCW3 12:00:00 AM ([facility]) G62.9 Polyneuropathy Polyneuropathy Problem 08/01/2018 eCW3 12:00:00 AM ([facility]) G62.9 Polyneuropathy Polyneuropathy Problem 08/01/2018 eCW3 12:00:00 AM ([facility]) I89.0 Lymphedema Lymphedema Problem 07/04/2018 eCW3 12:00:00 AM ([facility]) 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 12:00:00 AM ([place] syndromes, not malformation [facility] [place] elsewhere classified syndromes, not Health elsewhere classified Care ) I89.0 Lymphedema Lymphedema Problem 07/04/2018 eCW3 12:00:00 AM ([facility]) 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 12:00:00 AM ([place] syndromes, not malformation [facility] [place] elsewhere classified syndromes, not Health elsewhere classified Care ) 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 12:00:00 AM ([place] syndromes, not malformation [facility] [place] elsewhere classified syndromes, not Health elsewhere classified Care ) I89.0 Lymphedema Lymphedema Problem 07/04/2018 eCW3 12:00:00 AM ([facility]) 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 12:00:00 AM ([place] syndromes, not malformation [facility] [place] elsewhere classified syndromes, not Health elsewhere classified Care ) I89.0 Lymphedema Lymphedema Problem 07/04/2018 eCW3 12:00:00 AM ([facility]) I89.0 Lymphedema Lymphedema Problem 07/04/2018 eCW3 12:00:00 AM ([facility]) 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 12:00:00 AM ([place] syndromes, not malformation [facility] [place] elsewhere classified syndromes, not Health elsewhere classified Care ) I89.0 Lymphedema Lymphedema Problem 07/04/2018 eCW3 12:00:00 AM ([facility]) 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 12:00:00 AM ([place] syndromes, not malformation [facility] [place] elsewhere classified syndromes, not Health elsewhere classified Care ) I89.0 Lymphedema Lymphedema Problem 07/04/2018 eCW3 12:00:00 AM ([facility]) 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 12:00:00 AM ([place] syndromes, not malformation [facility] [place] elsewhere classified syndromes, not Health elsewhere classified Care ) F17.210 Cigarette nicotine Cigarette nicotine Problem 9 eCW3 dependence without dependence without 12:00:00 AM ([facility]) I10 Essential hypertension Essential (primary) Problem 05/08 eCW3 hypertension 12:00:00 AM ([facility]) I10 Essential hypertension Essential (primary) Problem 05/08 eCW3 hypertension 12:00:00 AM ([facility]) F17.210 Cigarette nicotine Cigarette nicotine Problem 9 eCW3 dependence without dependence without 12:00:00 AM ([place] complication complication [facility]) I10 Essential hypertension Essential (primary) Problem 05/08 eCW3 hypertension 12:00:00 AM ([facility]) F17.210 Cigarette nicotine Cigarette nicotine Problem 9 eCW3 dependence without dependence without 12:00:00 AM ([place] complication complication [facility]) I10 Essential hypertension Essential (primary) Problem 05/08 eCW3 hypertension 12:00:00 AM ([facility]) F17.210 Cigarette nicotine Cigarette nicotine Problem 9 eCW3 dependence without dependence without 12:00:00 AM ([place] complication complication [facility]) F17.200 Tobacco user Nicotine dependence, Problem 06/03/2018 eC W3 unspecified, 12:00:00 AM ([facility]) J45.909 Asthma without status Unspecified asthma, Problem 06/03 eCW3 asthmaticus uncomplicated 12:00:00 AM ([facility]) I10 Essential hypertension Essential (primary) Problem 05/08 eCW3 hypertension 12:00:00 AM ([facility]) F17.210 Cigarette nicotine Cigarette nicotine Problem 9 eCW3 dependence without dependence without 12:00:00 AM ([facility] complication [facility]) F17.200 Tobacco user Nicotine dependence, Problem 06/03/2018 eC W3 unspecified, 12:00:00 AM ([facility]) J45.909 Asthma without status Unspecified asthma, Problem 06/03 eCW3 asthmaticus uncomplicated 12:00:00 AM ([facility]) F17.210 Cigarette nicotine Cigarette nicotine Problem 9 eCW3 dependence without dependence without 12:00:00 AM ([place] complication complication [facility]) F17.200 Tobacco user Nicotine dependence, Problem 06/03/2018 eC W3 unspecified, 12:00:00 AM ([facility]) I10 Essential hypertension Essential (primary) Problem 05/08 eCW3 hypertension 12:00:00 AM ([facility]) J45.909 Asthma without status Unspecified asthma, Problem 06/03 eCW3 asthmaticus uncomplicated 12:00:00 AM ([facility]) I10 Essential hypertension Essential (primary) Problem 05/08 eCW3 hypertension 12:00:00 AM ([facility]) J45.909 Asthma without status Unspecified asthma, Problem 06/03 eCW3 asthmaticus uncomplicated 12:00:00 AM ([facility]) F17.210 Cigarette nicotine Cigarette nicotine Problem 9 eCW3 dependence without dependence without 12:00:00 AM ([facility]) E66.01 Morbid obesity Morbid obesity Problem 05/03/2018 eCW3 12:00:00 AM ([facility]) F20.89 Other schizophrenia Other schizophrenia Problem 018 eCW3 12:00:00 AM ([facility]) E66.01 Morbid obesity Morbid obesity Problem 05/03/2018 eCW3 12:00:00 AM ([facility]) F20.89 Other schizophrenia Other schizophrenia Problem 018 eCW3 12:00:00 AM ([facility]) F20.89 Other schizophrenia Other schizophrenia Problem 018 eCW3 12:00:00 AM ([facility]) E66.01 Morbid obesity Morbid obesity Problem 05/03/2018 eCW3 12:00:00 AM ([facility]) E66.01 Morbid obesity Morbid obesity Problem 05/03/2018 eCW3 12:00:00 AM ([facility]) F20.89 Other schizophrenia Other schizophrenia Problem 018 eCW3 12:00:00 AM ([facility]) G62.9 Neuropathy Neuropathy Problem 01/31/2018 eCW3 12:00:00 AM ([facility]) G62.9 Neuropathy Neuropathy Problem 01/31/2018 eCW3 12:00:00 AM ([facility]) G62.9 Neuropathy Neuropathy Problem 01/31/2018 eCW2 12:00:00 AM ([facility]) G62.9 Neuropathy Neuropathy Problem 01/31/2018 eCW2 12:00:00 AM ([facility]) G62.9 Neuropathy Neuropathy Problem 01/31/2018 eCW3 12:00:00 AM ([facility]) G62.9 Neuropathy Neuropathy Problem 01/31/2018 eCW3 12:00:00 AM ([facility]) G62.9 Neuropathy Neuropathy Problem 01/31/2018 eCW3 12:00:00 AM ([facility]) F20.9 Schizophrenia, Schizophrenia, Problem 07/20/2017 eCW3 unspecified type unspecified type 12:00:00 AM ( [facility]) F20.9 Schizophrenia, Schizophrenia, Problem 07/20/2017 eCW3 unspecified type unspecified type 12:00:00 AM ( [facility]) F20.9 Schizophrenia, Schizophrenia, Problem 07/20/2017 eCW3 unspecified type unspecified type 12:00:00 AM ( [facility]) F20.9 Schizophrenia, Schizophrenia, Problem 07/20/2017 eCW3 unspecified type unspecified type 12:00:00 AM ( [facility]) F20.9 Schizophrenia, Schizophrenia, Problem 07/20/2017 eCW2 unspecified type unspecified type 12:00:00 AM ( [facility]) F20.9 Schizophrenia, Schizophrenia, Problem 07/20/2017 eCW2 unspecified type unspecified type 12:00:00 AM ( [facility]) F20.9 Schizophrenia, Schizophrenia, Problem 07/20/2017 eCW3 unspecified type unspecified type 12:00:00 AM ( [facility]) F20.9 Schizophrenia, Schizophrenia, Problem 07/20/2017 eCW3 unspecified type unspecified type 12:00:00 AM ( [facility]) F20.9 Schizophrenia, Schizophrenia, Problem 07/20/2017 eCW3 unspecified type unspecified type 12:00:00 AM ( [facility]) H52.4 Presbyopia of both eyes Presbyopia of both Problem 07/2017 eCW3 eyes 12:00:00 AM ([facility]) H52.4 Presbyopia of both eyes Presbyopia of both Problem 03/0 07/2017 eCW2 eyes 12:00:00 AM ([facility]) H52.4 Presbyopia of both eyes Presbyopia of both Problem 03/0 07/2017 eCW2 eyes 12:00:00 AM ([facility]) H52.4 Presbyopia of both eyes Presbyopia of both Problem 030 07/2017 eCW3 eyes 12:00:00 AM ([facility]) H52.4 Presbyopia of both eyes Presbyopia of both Problem 030 07/2017 eCW3 eyes 12:00:00 AM ([facility]) H52.4 Presbyopia of both eyes Presbyopia of both Problem 030 07/2017 eCW3 eyes 12:00:00 AM ([facility]) E66.01 Morbid obesity Morbid (severe) Problem 05/28/2017 eCW2 obesity due to excess 12:00:00 AM ([facility]) E66.01 Morbid obesity Morbid (severe) Problem 05/28/2017 eCW2 obesity due to excess 12:00:00 AM ([facility]) M15.9 Osteoarthritis Polyosteoarthritis, Problem 02/23/2017 e CW3 unspecified 12:00:00 AM ([facility]) K21.0 Gastro-esophageal Gastro-esophageal Problem 02/23/2017 eCW3 reflux disease with reflux disease with 12:00:0 0 AM ([place] esophagitis esophagitis [facility]) M54.89 Backache Other dorsalgia Problem 02/23/2017 eCW3 12:00:00 AM ([facility]) K21.0 Gastro-esophageal Gastro-esophageal Problem 02/23/2017 eCW3 reflux disease with reflux disease with 12:00:0 0 AM ([place] esophagitis esophagitis [facility]) M54.89 Backache Other dorsalgia Problem 02/23/2017 eCW3 12:00:00 AM ([facility]) M15.9 Osteoarthritis Polyosteoarthritis, Problem 02/23/2017 e CW3 unspecified 12:00:00 AM ([facility]) M54.89 Backache Other dorsalgia Problem 02/23/2017 eCW3 12:00:00 AM ([facility]) M15.9 Osteoarthritis Polyosteoarthritis, Problem 02/23/2017 e CW3 unspecified 12:00:00 AM ([facility]) K21.0 Gastro-esophageal Gastro-esophageal Problem 02/23/2017 eCW3 reflux disease with reflux disease with 12:00:0 0 AM ([place] esophagitis esophagitis [facility]) M15.9 Osteoarthritis Polyosteoarthritis, Problem 02/23/2017 e CW3 unspecified 12:00:00 AM ([facility]) K21.0 Gastro-esophageal Gastro-esophageal Problem 02/23/2017 eCW3 reflux disease with reflux disease with 12:00:0 0 AM ([facility]) M54.89 Backache Other dorsalgia Problem 02/23/2017 eCW3 12:00:00 AM ([facility]) K21.0 Gastro-esophageal Gastro-esophageal Problem 02/23/2017 eCW3 reflux disease with reflux disease with 12:00:0 0 AM ([facility]) M15.9 Osteoarthritis Polyosteoarthritis, Problem 02/23/2017 e CW2 unspecified 12:00:00 AM ([facility]) K21.0 Gastro-esophageal Gastro-esophageal Problem 02/23/2017 eCW2 reflux disease with reflux disease with 12:00:0 0 AM ([place] esophagitis esophagitis [facility]) M54.89 Backache Other dorsalgia Problem 02/23/2017 eCW2 12:00:00 AM ([facility]) M15.9 Osteoarthritis Polyosteoarthritis, Problem 02/23/2017 e CW2 unspecified 12:00:00 AM ([facility]) K21.0 Gastro-esophageal Gastro-esophageal Problem 02/23/2017 eCW2 reflux disease with reflux disease with 12:00:0 0 [facility] M54.89 Backache Other dorsalgia Problem 02/23/2017 eCW2 12:00:00 AM ([facility]) K21.0 Gastro-esophageal Gastro-esophageal Problem 02/23/2017 eCW3 reflux disease with reflux disease with 12:00:0 0 AM ([place] esophagitis esophagitis [facility]) M54.89 Backache Other dorsalgia Problem 02/23/2017 eCW3 12:00:00 AM ([facility]) M15.9 Osteoarthritis Polyosteoarthritis, Problem 02/23/2017 e CW3 unspecified 12:00:00 AM ([facility]) K21.0 Gastro-esophageal Gastro-esophageal Problem 02/23/2017 eCW3 reflux disease with reflux disease with 12:00:0 0 AM ([place] esophagitis esophagitis [facility]) M54.89 Backache Other dorsalgia Problem 02/23/2017 eCW3 12:00:00 AM ([facility]) M15.9 Osteoarthritis Polyosteoarthritis, Problem 02/23/2017 e CW3 unspecified 12:00:00 AM ([facility]) K21.0 Gastro-esophageal Gastro-esophageal Problem 02/23/2017 eCW3 reflux disease with reflux disease with 12:00:0 0 AM ([place] esophagitis esophagitis [facility]) M54.89 Backache Other dorsalgia Problem 02/23/2017 eCW3 12:00:00 AM ([facility]) M15.9 Osteoarthritis Polyosteoarthritis, Problem 02/23/2017 e CW3 unspecified 12:00:00 AM ([facility]) J45.40 Asthma, moderate Asthma, moderate Problem 10/25/2016 eC W3 persistent persistent 12:00:00 AM ([facility]) J45.40 Asthma, moderate Asthma, moderate Problem 10/25/2016 eC W3 persistent persistent 12:00:00 AM ([facility]) J45.40 Asthma, moderate Asthma, moderate Problem 10/25/2016 eC W3 persistent persistent 12:00:00 AM ([facility]) J45.40 Asthma, moderate Asthma, moderate Problem 10/25/2016 eC W3 persistent persistent 12:00:00 AM ([facility]) J45.40 Asthma, moderate Asthma, moderate Problem 10/25/2016 eC W2 persistent persistent 12:00:00 AM ([facility]) J45.40 Asthma, moderate Asthma, moderate Problem 10/25/2016 eC W2 persistent persistent 12:00:00 AM ([facility]) J45.40 Asthma, moderate Asthma, moderate Problem 10/25/2016 eC W3 persistent persistent 12:00:00 AM ([facility]) J45.40 Asthma, moderate Asthma, moderate Problem 10/25/2016 eC W3 persistent persistent 12:00:00 AM ([facility]) J45.40 Asthma, moderate Asthma, moderate Problem 10/25/2016 eC W3 persistent persistent 12:00:00 AM ([facility]) H05.20 Exophthalmos Exophthalmos Problem 07/20/2016 eCW3 12:00:00 AM ([facility]) H05.20 Exophthalmos Exophthalmos Problem 07/20/2016 eCW3 12:00:00 AM ([facility]) H05.20 Exophthalmos Exophthalmos Problem 07/20/2016 eCW3 12:00:00 AM ([facility]) H05.20 Exophthalmos Exophthalmos Problem 07/20/2016 eCW3 12:00:00 AM ([facility]) H05.20 Exophthalmos Exophthalmos Problem 07/20/2016 eCW3 12:00:00 AM ([facility]) H05.20 Exophthalmos Exophthalmos Problem 07/20/2016 eCW2 12:00:00 AM ([facility]) H05.20 Exophthalmos Exophthalmos Problem 07/20/2016 eCW2 12:00:00 AM ([facility]) H05.20 Exophthalmos Exophthalmos Problem 07/20/2016 eCW3 12:00:00 AM ([facility]) H05.20 Exophthalmos Exophthalmos Problem 07/20/2016 eCW3 12:00:00 AM ([facility]) H05.20 Exophthalmos Exophthalmos Problem 07/20/2016 eCW3 12:00:00 AM ([facility]) M47.27 Lumbosacral spondylosis Lumbosacral Problem 07/10/2016 eCW3 with radiculopathy spondylosis with 12:00:00 AM ([place] radiculopathy [facility]) M47.27 Lumbosacral spondylosis Lumbosacral Problem 07/10/2016 eCW3 with radiculopathy spondylosis with 12:00:00 AM ([place] radiculopathy [facility]) M47.27 Lumbosacral spondylosis Lumbosacral Problem 07/10/2016 eCW3 with radiculopathy spondylosis with 12:00:00 [facility] M47.27 Lumbosacral spondylosis Lumbosacral Problem 07/10/2016 eCW3 with radiculopathy spondylosis with 12:00:00 AM ([place] radiculopathy [facility]) M47.27 Lumbosacral spondylosis Lumbosacral Problem 07/10/2016 eCW2 with radiculopathy spondylosis with 12:00:00 AM ([place] radiculopathy [facility]) M47.27 Lumbosacral spondylosis Lumbosacral Problem 07/10/2016 eCW2 with radiculopathy spondylosis with 12:00:00 AM ([place] radiculopathy [facility]) M47.27 Lumbosacral spondylosis Lumbosacral Problem 07/10/2016 eCW3 with radiculopathy spondylosis with 12:00:00 AM ([place] radiculopathy [facility]) M47.27 Lumbosacral spondylosis Lumbosacral Problem 07/10/2016 eCW3 with radiculopathy spondylosis with 12:00:00 AM ([place] radiculopathy [facility]) M47.27 Lumbosacral spondylosis Lumbosacral Problem 07/10/2016 eCW3 with radiculopathy spondylosis with 12:00:00 AM [facility] Z12.39 Breast screening Breast screening Problem 04/27/2016 eC W2 12:00:00 AM ([facility]) Z12.39 Breast screening Breast screening Problem 04/27/2016 eC W2 12:00:00 AM ([facility]) Z12.39 Breast screening Breast screening Problem 04/27/2016 eC W3 12:00:00 AM ([facility]) Z12.39 Breast screening Breast screening Problem 04/27/2016 eC W3 12:00:00 AM ([facility]) E11.9 Type II diabetes Type 2 diabetes Problem 04/12/2016 eCW 2 mellitus without mellitus without 12:00:00 AM ( [place] complication complications [facility]) E11.9 Type II diabetes Type 2 diabetes Problem 04/12/2016 eCW 2 mellitus without mellitus without 12:00:00 AM ( [facility]) E11.9 Type II diabetes Type 2 diabetes Problem 04/12/2016 eCW 3 mellitus without mellitus without 12:00:00 AM ( [facility]) E11.9 Type II diabetes Type 2 diabetes Problem 04/12/2016 eCW 3 mellitus without mellitus without 12:00:00 AM ( [place] complication complications [facility]) E11.9 Type II diabetes Type 2 diabetes Problem 04/12/2016 eCW 3 mellitus without mellitus without 12:00:00 AM ( [place] complication complications [facility]) H25.13 Nuclear age-related Nuclear age-related Problem 016 eCW3 cataract, both eyes cataract, both eyes 12:00:0 0 AM ([facility]) H25.13 Nuclear age-related Nuclear age-related Problem 016 eCW2 cataract, both eyes cataract, both eyes 12:00:0 0 AM ([facility]) H25.13 Nuclear age-related Nuclear age-related Problem 016 eCW2 cataract, both eyes cataract, both eyes 12:00:0 0 AM ([facility]) H25.13 Nuclear age-related Nuclear age-related Problem 016 eCW3 cataract, both eyes cataract, both eyes 12:00:0 0 AM ([facility]) H25.13 Nuclear age-related Nuclear age-related Problem 016 eCW3 cataract, both eyes cataract, both eyes 12:00:0 0 AM ([facility]) H25.13 Nuclear age-related Nuclear age-related Problem 016 eCW3 cataract, both eyes cataract, both eyes 12:00:0 0 AM ([facility]) J41.0 Simple chronic Simple chronic Problem 10/29/2015 eCW2 bronchitis bronchitis 12:00:00 AM ([facility]) J41.0 Simple chronic Simple chronic Problem 10/29/2015 eCW2 bronchitis bronchitis 12:00:00 AM ([facility]) J41.0 Simple chronic Simple chronic Problem 10/29/2015 eCW3 bronchitis bronchitis 12:00:00 AM ([facility]) J41.0 Simple chronic Simple chronic Problem 10/29/2015 eCW3 bronchitis bronchitis 12:00:00 AM ([facility]) M25.551 Right hip pain Right hip pain Problem 06/02/2015 eCW2 12:00:00 AM ([facility]) M25.551 Right hip pain Right hip pain Problem 06/02/2015 eCW2 12:00:00 AM ([facility]) M25.551 Right hip pain Right hip pain Problem 06/02/2015 eCW3 12:00:00 AM ([facility]) M25.551 Right hip pain Right hip pain Problem 06/02/2015 eCW3 12:00:00 AM ([facility]) E78.0 Pure Hypercholesteremia Problem 03/23/2015 eCW3 hypercholesterolemia 12:00:00 AM ([facility]) E78.0 Pure Hypercholesteremia Problem 03/23/2015 eCW3 hypercholesterolemia 12:00:00 AM ([facility]) E78.0 Pure Hypercholesteremia Problem 03/23/2015 eCW3 hypercholesterolemia 12:00:00 AM ([facility]) E78.0 Pure Hypercholesteremia Problem 03/23/2015 eCW3 hypercholesterolemia 12:00:00 AM ([facility]) E78.0 Pure Hypercholesteremia Problem 03/23/2015 eCW2 hypercholesterolemia 12:00:00 AM ([facility]) I10 Hypertension Hypertension Problem 03/23/2015 eCW2 12:00:00 AM ([facility]) 250.00 Diabetes mellitus type Diabetes mellitus type Problem 1 05/23/2014 eCW2 2 2 12:00:00 AM ([facility]) E78.0 Pure Hypercholesteremia Problem 03/23/2015 eCW2 hypercholesterolemia 12:00:00 AM ([facility]) I10 Hypertension Hypertension Problem 03/23/2015 eCW2 12:00:00 AM ([facility]) 250.00 Diabetes mellitus type Diabetes mellitus type Problem 1 05/23/2014 eCW2 2 2 12:00:00 AM ([facility]) E78.0 Pure Hypercholesteremia Problem 03/23/2015 eCW3 hypercholesterolemia 12:00:00 AM ([facility]) 250.00 Diabetes mellitus type Diabetes mellitus type Problem 1 05/23/2014 eCW3 2 2 12:00:00 AM ([facility]) E78.0 Pure Hypercholesteremia Problem 03/23/2015 eCW3 hypercholesterolemia 12:00:00 AM ([facility]) 250.00 Diabetes mellitus type Diabetes mellitus type Problem 1 05/23/2014 eCW3 2 2 12:00:00 AM ([facility]) 793.2 Tomography - chest Abnormal CT of the Problem 5 eCW2 abnormal chest 12:00:00 AM ([facility]) 793.2 Tomography - chest Abnormal CT of the Problem 5 eCW2 abnormal chest 12:00:00 AM ([facility]) 793.2 Tomography - chest Abnormal CT of the Problem 5 eCW3 abnormal chest 12:00:00 AM ([facility]) 793.2 Tomography - chest Abnormal CT of the Problem 5 eCW3 abnormal chest 12:00:00 AM ([facility]) 305.1 Tobacco abuse Tobacco abuse Problem 09/14/2014 eCW2 12:00:00 AM ([facility]) 305.1 Tobacco abuse Tobacco abuse Problem 09/14/2014 eCW2 12:00:00 AM ([facility]) 305.1 Tobacco abuse Tobacco abuse Problem 09/14/2014 eCW3 12:00:00 AM ([facility]) 305.1 Tobacco abuse Tobacco abuse Problem 09/14/2014 eCW3 12:00:00 AM ([facility]) 719.45 Arthralgia of the Hip pain, right Problem 06/29/2014 eC W2 pelvic region and thigh 12:00:00 AM ([facility]) 719.45 Arthralgia of the Hip pain, right Problem 06/29/2014 eC W2 pelvic region and thigh 12:00:00 AM ([facility]) 719.45 Arthralgia of the Hip pain, right Problem 06/29/2014 eC W3 pelvic region and thigh 12:00:00 AM ([facility]) 719.45 Arthralgia of the Hip pain, right Problem 06/29/2014 eC W3 pelvic region and thigh 12:00:00 AM ([facility]) 715.90 Degenerative arthritis Degenerative arthritis Problem 0 06/24/2014 eCW2 12:00:00 AM ([facility]) V45.86 S/P bariatric surgery S/P bariatric surgery Problem eCW2 12:00:00 AM ([facility]) 715.90 Degenerative arthritis Degenerative arthritis Problem 0 06/24/2014 eCW2 12:00:00 AM ([facility]) V45.86 S/P bariatric surgery S/P bariatric surgery Problem eCW2 12:00:00 AM ([facility]) 715.90 Degenerative arthritis Degenerative arthritis Problem 0 06/24/2014 eCW3 12:00:00 AM ([facility]) V45.86 S/P bariatric surgery S/P bariatric surgery Problem eCW3 12:00:00 AM ([facility]) 715.90 Degenerative arthritis Degenerative arthritis Problem 0 06/24/2014 eCW3 12:00:00 AM ([facility]) V45.86 S/P bariatric surgery S/P bariatric surgery Problem eCW3 12:00:00 AM ([facility]) 719.41 Shoulder joint pain Shoulder pain, left Problem 014 eCW2 12:00:00 AM ([facility]) 719.41 Shoulder joint pain Shoulder pain, left Problem 014 eCW2 12:00:00 AM ([facility]) 719.41 Shoulder joint pain Shoulder pain, left Problem 014 eCW3 12:00:00 AM ([facility]) 719.41 Shoulder joint pain Shoulder pain, left Problem 014 eCW3 12:00:00 AM ([facility]) 240.9 Goiter Goiter NOS Problem 10/02/2013 eCW2 12:00:00 AM ([facility]) 240.9 Goiter Goiter NOS Problem 10/02/2013 eCW2 12:00:00 AM ([facility]) 240.9 Goiter Goiter NOS Problem 10/02/2013 eCW3 12:00:00 AM ([facility]) 240.9 Goiter Goiter NOS Problem 10/02/2013 eCW3 12:00:00 AM ([facility]) 278.01 Morbid obesity with BMI Morbid obesity with Problem eCW2 of 50.0-59.9, adult BMI of 50.0-59.9, 12:00:00 AM ([facility]) 278.01 Morbid obesity with BMI Morbid obesity with Problem eCW2 of 50.0-59.9, adult BMI of 50.0-59.9, 12:00:00 AM ([facility]) 278.01 Morbid obesity with BMI Morbid obesity with Problem eCW3 of 50.0-59.9, adult BMI of 50.0-59.9, 12:00:00 AM ([facility]) 278.01 Morbid obesity with BMI Morbid obesity with Problem eCW3 of 50.0-59.9, adult BMI of 50.0-59.9, 12:00:00 AM ([facility]) 780.57 Sleep apnea Sleep Apnea Problem eCW2 ([facility]) 571.8 Fatty liver Fatty Liver Problem eCW2 ([facility]) 311 Depressive disorder Depression Disorder Problem eCW2 NOS ([facility]) 530.11 Gastroesophageal reflux GERD Problem e CW2 disease ([facility]) 724.5 Low back pain Low Back Pain Problem eCW2 ([facility]) 289.9 Essential Thrombocytosis, Problem eCW2 thrombocytosis essential ([facility]) 715.90 Generalized Osteoarthritis Problem eCW2 osteoarthritis generalized ([facility]) 780.57 Sleep apnea Sleep Apnea Problem eCW2 ([facility]) 289.9 Essential Thrombocytosis, Problem eCW2 thrombocytosis essential ([facility]) 715.90 Generalized Osteoarthritis Problem eCW2 osteoarthritis generalized ([facility]) 724.5 Low back pain Low Back Pain Problem eCW2 ([facility]) 530.11 Gastroesophageal reflux GERD Problem e CW3 disease ([facility]) 311 Depressive disorder Depression Disorder Problem eCW3 NOS ([facility]) 724.5 Low back pain Low Back Pain Problem eCW3 ([facility]) 289.9 Essential Thrombocytosis, Problem eCW3 thrombocytosis essential ([facility]) 715.90 Generalized Osteoarthritis Problem eCW3 osteoarthritis generalized ([facility]) 780.57 Sleep apnea Sleep Apnea Problem eCW3 ([facility]) 715.90 Generalized Osteoarthritis Problem eCW3 osteoarthritis generalized ([facility]) 780.57 Sleep apnea Sleep Apnea Problem eCW3 ([facility]) 530.11 Gastroesophageal reflux GERD Problem e CW3 disease ([facility]) 311 Depressive disorder Depression Disorder Problem eCW3 NOS ([facility]) 724.5 Low back pain Low Back Pain Problem eCW3 ([facility]) 289.9 Essential Thrombocytosis, Problem eCW3 thrombocytosis essential ([facility]) 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 M25.371 Other instability, OTHER INSTABILITY, Diagnosis 0 [facility] right ankle RIGHT ANKLE 12:54:00 PM [facility] F25.0 Schizoaffective SCHIZOAFFECTIVE Diagnosis 05/08/2019 Lety t disorder, bipolar type DISORDER, BIPOLAR TYPE 0 7:54:00 AM [facility] E11.9 Type 2 diabetes TYPE 2 DIABETES Diagnosis 03/14/2019 Lety t mellitus without MELLITUS WITHOUT 02:47:00 PM J osephs complications COMPLICATIONS [facility] K21.9 Gastro-esophageal GASTRO-ESOPHAGEAL Diagnosis 03/14/2019 reflux disease without REFLUX DISEASE WITHOUT 0 2:47:00 PM [facility] esophagitis ESOPHAGITIS [facility] J44.9 Chronic obstructive CHRONIC OBSTRUCTIVE Diagnosis [facility] pulmonary disease, PULMONARY DISEASE, 02:47:00 PM [facility] unspecified UNSPECIFIED [facility] J45.909 Unspecified asthma, UNSPECIFIED ASTHMA, Diagnosis uncomplicated UNCOMPLICATED 02:47:00 PM [facility] Y92.[address] U[address] OR Diagnosis 03/14 not applicable NOT APPLICABLE 02:47:00 PM Tino hs [facility] K31.84 Gastroparesis GASTROPARESIS Diagnosis 03/14/2019 02:47:00 PM [facility] F60.0 Paranoid personality PARANOID PERSONALITY Diagnosis 03/14 disorder DISORDER 02:47:00 PM [facility] T50.901 Poisoning by POISONING BY UNSP Diagnosis 03/14/2019 A unspecified drugs, DRUG/MEDS/BIOL SUBST, 02:47: 00 PM [facility] medicaments and ACCIDENTAL, INIT EST Med ical biological substances, Ce nter accidental (unintentional), initial encounter F17.210 Nicotine dependence, NICOTINE DEPENDENCE, Diagnosis 02/12 cigarettes, CIGARETTES, 02:30:00 AM [facility] uncomplicated UNCOMPLICATED [facility] E66.01 Morbid (severe) obesity MORBID (SEVERE) Diagnosis due to excess calories OBESITY DUE TO EXCESS 02 :30:00 AM [facility] CALORIES [facility] M48.061 Spinal stenosis, lumbar SPINAL STENOSIS, Diagnosis 2018 region without LUMBAR REGION WITHOUT 02:30:00 A M [facility] neurogenic claudication NEUROGENIC WISAM [facility] F31.9 Bipolar disorder, BIPOLAR DISORDER, Diagnosis 02/12/2019 unspecified UNSPECIFIED 02:30:00 AM [facility] G47.33 Obstructive sleep apnea OBSTRUCTIVE SLEEP Diagnosis 02/12 [facility] (adult) (pediatric) APNEA (ADULT) 02:30:00 AM [facility] (PEDIATRIC) [facility] F20.9 Schizophrenia, SCHIZOPHRENIA, Diagnosis 02/12/2019 [facility] unspecified UNSPECIFIED 02:30:00 AM [facility] Z68.44 Body mass index (BMI) BODY MASS INDEX (BMI) Diagnosis 01/2019 [facility] 60.0-69.9, adult 60.0-69.9, ADULT 02:30:00 AM [facility] E11.43 Type 2 diabetes TYPE 2 DIABETES W Diagnosis 02/12/2019 Sa int mellitus with diabetic DIABETIC AUTONOMIC 02:30 :00 AM [facility] autonomic (POLY)NEUROPATHY [facility] (poly)neuropathy Center G82.20 Paraplegia, unspecified PARAPLEGIA, Diagnosis 02/12/2019 UNSPECIFIED 02:30:00 AM [facility] 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 02/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 01:04:0 0 PM [facility] 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, PARALYTIC SYNDROME, Diagnosis 019 [facility] unspecified UNSPECIFIED 01:04:00 PM [facility] Diagnosis [facility] Diagnosis [facility]) Surgeries/Procedures Procedure Description Date Indications Data Source(s) Psychotherapy (30 Mins) 12/17/2019 NEXT GEN ([facility] W/ E&M 12:00:00 AM [facility]) 12/17/2019 12:00:00 AM EDT OFFICE/OUTPATIENT 12/17/2019 NEXTGEN (S aint VISIT, EST 12:00:00 AM [facility]) 12/17/2019 12:00:00 AM EDT OFFICE/OUTPATIENT 11/20/2019 NEXTGEN (S aint VISIT, EST 12:00:00 AM [facility]) 11/20/2019 12:00:00 AM EDT OFFICE/OUTPATIENT 07/31/2019 NEXTGEN (S aint VISIT, EST 12:00:00 AM [facility]) 07/31/2019 12:00:00 AM EDT Psychotherapy (30 Mins) 06/04/2019 NEXT GEN ([facility] W/ E&M 12:00:00 AM [facility] EST - Center) 06/04/2019 12:00:00 AM EST OFFICE/OUTPATIENT 06/04/2019 NEXTGEN (S aint VISIT, EST 12:00:00 AM [facility] EST - [place]) 06/04/2019 12:00:00 AM EST Psychotherapy (45 Mins) 03/24/2019 NEXT GEN ([facility] W/ E&M 12:00:00 AM [facility] EST - [place]) 03/24/2019 12:00:00 AM EST OFFICE/OUTPATIENT 03/24/2019 NEXTGEN (S aint VISIT, EST 12:00:00 AM [facility] EST - [place]) 03/24/2019 12:00:00 AM EST OFFICE/OUTPATIENT 01/20/2019 NEXTGEN (S aint VISIT, EST 12:00:00 AM [facility] EDT - [place]) 01/20/2019 12:00:00 AM EDT Psychotherapy (30 Mins) 12/03/2018 NEXT GEN ([facility] W/ E&M 12:00:00 AM [facility] EDT - Center) 12/03/2018 12:00:00 AM EDT OFFICE/OUTPATIENT 12/03/2018 NEXTGEN (S aint VISIT, EST 12:00:00 AM [facility] EDT - [place]) 12/03/2018 12:00:00 AM EDT EKG W INTERPRETATION 10/24/2018 eCW3 (H udson 12:00:00 AM [facility] EDT Care) Psychotherapy (30 Mins) 10/23/2018 NEXT GEN ([facility] W/ E&M 12:00:00 AM [facility] EDT - Center) 10/23/2018 12:00:00 AM EDT OFFICE/OUTPATIENT 10/23/2018 NEXTGEN (S aint VISIT, EST 12:00:00 AM [facility] EDT - [place]) 10/23/2018 12:00:00 AM EDT Psychotherapy (30 Mins) 08/16/2018 NEXT GEN ([facility] W/ E&M 12:00:00 AM [facility] EDT - [place]) 08/16/2018 12:00:00 AM EDT OFFICE/OUTPATIENT 08/16/2018 NEXTGEN (S aint VISIT, EST 12:00:00 AM [facility] EDT - [place]) 08/16/2018 12:00:00 AM EDT NEBULIZATION TX. 08/01/2018 [facility] Psychotherapy (30 Mins) 06/21/2018 NEXT GEN ([facility] W/ E&M 12:00:00 AM [facility]) 06/21/2018 12:00:00 AM EST OFFICE/OUTPATIENT 06/21/2018 NEXTGEN (S aint VISIT, EST 12:00:00 AM [facility]) 06/21/2018 12:00:00 AM EST Psychotherapy (30 Mins) 04/19/2018 NEXT GEN ([facility] W/ E&M 12:00:00 AM [facility]) 04/19/2018 12:00:00 AM EST OFFICE/OUTPATIENT 04/19/2018 NEXTGEN (S aint VISIT, EST 12:00:00 AM [facility]) 04/19/2018 12:00:00 AM EST O-CM2 CASE MANAGEMENT 02/06/2018 eCW2 ( [place] FOLLOWUP 12:00:00 AM [facility]) No Known procedures No Known procedures e CW2 ([facility]) No Known procedures No Known procedures e CW2 ([facility]) No Known procedures No Known procedures e CW2 ([facility]) Results ID Date Data Source [id number] 12/08/2019 12:00:00 AM EDT [facility] Name Value Range Interpretation Code Description Data Sully rce(s) Supporting Document(s ) 2019-nCoV [facility] RNA XXX PATRICK+probe- Imp This lab was ordered by [facility] 2 and reported by [employer] ID Date Data Source LIPID.[id number] 03/15/2019 06:00:[address] [facility] Name Value Range Interpretation Description Data Sup porting Code Source(s) Document(s ) Cholesterol -<200 <content Saint [Mass/volume] in styleCode="Fred Patria Serum or Plasma d">Cholesterol Medical </content>155 Center MG/DL<content styleCode="Abi lics"> (-<200 MG/DL)</conten t> Triglyceride < 150 <content [facility] [Mass/volume] in styleCode="Fred Patria Serum or Plasma d">Triglycerid [facility] es Center </content>58 MG/DL<content styleCode="Abi lics"> (< 150 MG/DL)</conten t> UNK > 60 Below low normal <content Saint styleCode="Fred Patria d">HDL- Medical Cholesterol Center </content>54 MG/DL L<content styleCode="Abi lics"> (> 60 MG/DL)</conten t> UNK < 100 <content Saint styleCode="Fred Patria d">LDL-Cholest [facility] chanel Center </content>89 MG/DL<content styleCode="Abi lics"> (< 100 MG/DL)</conten t> ID Date Data Source HematologyRou.[id number] 03/15/2019 06:00:00 AM DEBRA [facility] 0500 Name Value Range Interpretation Description [...] (0.0 KCUMM)</content > ID Date Data Source GFR(Creatinine).[id number] 03/15/2019 06:00:00 AM EST [facility] 0-0500 Name Value Range Interpretation Code Description Data Sully rce(s) Supporting Document(s ) UNK > 60 <content [facility] styleCode="Bold"> Medical Cent er EGFR </content>164 GFR<content styleCode="Italic s"> (> 60 GFR)</content> ID Date Data Source Coagulation 03/15/2019 06:00:00 AM [facility] Rout.[id number] EST Name Value Range Interpretation Description Data [...] cs"> (25.1-36.5 SEC)</content> ID Date Data Source CHMROUTINECCDA.[id number] 03/15/2019 06:00:00 AM EST [facility] -0500 Name Value Range Interpretation Description Data Sup porting Code Source(s) Document(s ) Magnesium 1.6-2.3 Below low normal <content Saint [Mass/volume] styleCode="Fred Patria in Serum or d">Magnesium Medical Plasma </content>1.5 Center MG/DL L<content styleCode="Abi lics"> (1.6-2.3 MG/DL)</conten t> UNK 4.2-5.8 Above high normal <content Saint styleCode="Fred Patria d">Hemoglobin Medical A1C Center </content>6.1 % H<content styleCode="Abi lics"> (4.2-5.8 %)</content> ID Date Data Source [facility].[id number] 03/15/2019 06:00:00 AM EST [facility] Center Name Value Range Interpretation Description Data [...] MEQ/L)</conten t> Sodium 137-145 <content [facility] [Moles/volume] styleCode="Rfed Patria in Serum or d">Sodium Medical Plasma [...] (> 60 GFR)</content> ID Date Data Source CardiacMarkers.[id number] 03/14/2019 06:29:00 PM DEBRA [facility] -0500 Name Value Range Interpretation Description Data Sup porting Code Source(s) Document(s ) Troponin < 0.034 <content Saint I.cardiac styleCode="Bold Patria [Mass/volume ">Troponin I Medical ] in Serum </content>< Center or Plasma 0.012 NG/ML<content styleCode="Ital ics"> (< 0.034 NG/ML)</content > ID Date Data Source BMP.[id number] 03/14/2019 05:09:00 PM EST [facility] Name Value Range Interpretation Description Data Sup porting Code Source(s) Document(s ) Potassium 3.5-5.3 <content [facility] [Moles/volume styleCode="Fred Patria ] in Serum or d">Potassium Medical Plasma </content>3.9 Center MEQ/L<content styleCode="Abi lics"> (3.5-5.3 MEQ/L)</conten t> ID Date Data Source Urinalysis.[id number] 03/14/2019 04:37:00 PM DEBRA [facility] 0 Name Value Range Interpretation Description Data Sup porting Code Source(s) Document(s ) Glucose NEGATIVE <content [facility] [Mass/volume] styleCode="Fred [place] in Urine by d">Urine Medical Test strip Glucose Center </content>NEGA TIVE MG/DL<content styleCode="Abi lics"> (NEGATIVE MG/DL)</conten t> Color of Urine YELLOW <content Saint styleCode="[facility] d">Color, Medical Urine Center </content>YELL OW <content styleCode="Abi lics"> (YELLOW )</content> UNK CLEAR <content Saint styleCode="[facility] d">Urine Medical Clarity Center </content>CELINE R <content styleCode="Abi lics"> (CLEAR )</content> Specific 1.015-1.02 Below low normal <content Saint gravity of 5 styleCode="Fred [place] Urine by Test d">Urine Medical strip Specific [place] </content><= 1.005 L<content styleCode="Abi lics"> (1.015-1.025 )</content> Hemoglobin NEGATIVE <content Saint [Presence] in styleCode="Fred [place] Urine by Test d">Urine Blood Medical strip </content>NEGA Center TIVE <content styleCode="Abi lics"> (NEGATIVE )</content> UNK NEGATIVE <content Saint styleCode="Fred Patria d">Urine Medical Bilirubin Center </content>NEGA TIVE <content styleCode="Abi lics"> (NEGATIVE )</content> Ketones NEGATIVE <content Saint [Mass/volume] styleCode="Fred Prabhakars in Urine by d">Urine Medical Test strip Ketone Center </content>NEGA TIVE MG/DL<content styleCode="Abi lics"> (NEGATIVE MG/DL)</conten t> pH of Urine by 4.5-8.0 <content Saint Test strip styleCode="Fred Patria d">Urine pH Medical </content>7.0 Center <content styleCode="Aib lics"> (4.5-8.0 )</content> Urobilinogen 0.2-1.0 <content [facility] [Units/volume] styleCode="Fred Patria [...] lics"> (NEGATIVE )</content> ID Date Data Source CHMROUTINECCDA.[id number] 03/14/2019 04:37:00 PM [facility] -0500 Name Value Range Interpretation Description Data Sup porting Code Source(s) Document(s ) Cannabinoids <content Saint [Presence] in styleCode="Fred Prabhakars Urine by Screen d">Cannabinoid Medical method >50 ng/mL s Center </content>PRES UMPTIVE POSITIVE NG/ML (Reference Range: not available)<br/ > ID Date Data Source Liver 03/14/2019 03:44:00 PM [facility] Profile.[id number] Name Value Range Interpretation Description Data Sup [...] s"> (0.0-0.3 MG/DL)</content> ID Date Data Source HematologyRou.[id number] 03/14/2019 03:44:00 PM EST Jose Eduardo nt [facility] 0500 Name Value Range Interpretation Description Data Sup porting Code Source(s) Document(s ) Leukocytes 4.4-11.0 <content Saint [#/volume] in styleCode="Bold [facility] Blood by ">White Blood Medical Automated count [...] (0.0 KCUMM)</content > ID Date Data Source GFR(Creatinine).[id number] 03/14/2019 03:44:00 PM DEBRA [facility] 0-0500 Name Value Range Interpretation Code Description Data Sully rce(s) Supporting Document(s ) UNK > 60 <content [facility] styleCode="Bold"> Medical Cent er EGFR </content>175 GFR<content styleCode="Italic s"> (> 60 GFR)</content> ID Date Data Source [facility].[id number] 03/14/2019 03:44:00 PM EST [facility] Name Value Range Interpretation Description Data Sup porting Code Source(s) Document(s ) Sodium 137-145 <content Saint [Moles/volume] in styleCode="Bold"> [facility] Serum or Plasma Sodium Medical </content>142 Center MEQ/L<content styleCode="Italic s"> (137-145 MEQ/L)</content> Chloride 98-107 <content [facility] [Moles/volume] in styleCode="Bold"> [facility] Serum or Plasma Chloride Medical </content>106 Center MEQ/L<content styleCode="Italic s"> (98-107 MEQ/L)</content> UNK 7-17 <content Saint styleCode="Bold"> Patria BUN </content>9 Medical MG/DL<content Center styleCode="Italic s"> (7-17 MG/DL)</content> Potassium <content Saint [Moles/volume] in styleCode="Bold"> [facility] Serum or Plasma Potassium Medical </content>Test Center [...] s"> (3.5-5.0 G/DL)</content> ID Date Data Source LIPID.[id number] 02/11/2019 03:25:00 PM EDT [facility] Name Value Range Interpretation Description Data Sup porting Code Source(s) Document(s ) Triglyceride < 150 <content [facility] [Mass/volume] in styleCode="Fred Patria Serum or Plasma d">Triglycerid Medical es Center </content>75 MG/DL<content styleCode="Abi lics"> (< 150 MG/DL)</conten t> UNK > 60 Below low normal <content Saint styleCode="Fred Patria d">HDL- Medical Cholesterol Center </content>58 MG/DL L<content styleCode="Abi lics"> (> 60 MG/DL)</conten t> UNK < 100 <content Saint styleCode="Fred Patria d">LDL-Cholest Medical chanel Center </content>84 MG/DL<content styleCode="Abi lics"> (< 100 MG/DL)</conten t> Cholesterol -<200 <content Saint [Mass/volume] in styleCode="[facility] Serum or Plasma d">Cholesterol Medical </content>157 Center MG/DL<content styleCode="Abi lics"> (-<200 MG/DL)</conten t> ID Date Data Source HematologyRou.[id number] 02/11/2019 03:25:00 PM EDT Jose Eduardo [facility] 0400 Name Value Range Interpretation Description Data [...] ics"> (0 /100)</content> ID Date Data Source GFR(Creatinine).[id number] 02/11/2019 03:25:00 PM EDT [facility] 0-0400 Name Value Range Interpretation Code Description Data Sully rce(s) Supporting Document(s ) UNK > 60 <content [facility] styleCode="Bold"> Medical Cent er EGFR </content>164 GFR<content styleCode="Italic s"> (> 60 GFR)</content> ID Date Data Source Coagulation 02/11/2019 03:25:00 PM [facility] ical Center Rout.[id number] EDT Name Value Range Interpretation Description Data [...] styleCode="Bold" Patria plasma by >INR Medical Coagulation </content>1.10 Center assay #<content styleCode="Itali cs"> (0.80-1.20 #)</content> ID Date Data Source CHMROUTINECCDA.[id number] 02/11/2019 03:25:00 PM EDT [facility] -0400 Name Value Range Interpretation Description Data Sup porting Code Source(s) Document(s ) Natriuretic < 125 Above high normal <content Saint peptide.B styleCode="Fred Patria prohormone d">NT Pro BNP Medical N-Terminal </content>209 Center [Mass/volume] PG/ML in Serum or H<content Plasma styleCode="Abi lics"> (< 125 PG/ML)</conten t> ID Date Data Source CardiacMarkers.[id number] 02/11/2019 03:25:00 PM EDT [facility] -0400 Name Value Range Interpretation Description Data Sup porting Code Source(s) Document(s ) Troponin < 0.034 <content Saint I.cardiac styleCode="Bold Patria [Mass/volume ">Troponin I Medical ] in Serum </content>< Center or Plasma 0.012 NG/ML<content styleCode="Ital ics"> (< 0.034 NG/ML)</content > ID Date Data Source BMP.[id number] 02/11/2019 03:25:00 PM EDT [facility] Name Value Range Interpretation Description Data [...] t> Calcium 8.4-10.2 <content Saint [Mass/volume] styleCode="Fred Prabhakars in Serum or d">Calcium Medical Plasma </content>9.8 Center MG/DL<content styleCode="Abi lics"> (8.4-10.2 MG/DL)</conten t> UNK > 60 <content Saint styleCode="Fred Prabhakars d">EGFR Medical </content>164 Center GFR<content styleCode="Abi lics"> (> 60 GFR)</content> Glucose 74-106 <content Saint [Mass/volume] styleCode="Fred Prabhakars in Serum or d">Glucose Medical Plasma </content>99 Center MG/DL<content styleCode="Abi lics"> (74-106 MG/DL)</conten t> Creatinine 0.5-1.3 <content [facility] [Mass/volume] styleCode="Fred Prabhakars in Serum or d">Creatinine Medical Plasma </content>0.5 Center MG/DL<content styleCode="Abi lics"> (0.5-1.3 MG/DL)</conten t> ID Date Data Source Urinalysis.[id number] 02/11/2019 03:15:00 PM EDT [facility] 0 Name Value Range Interpretation Description [...] normal <content Saint gravity of 5 styleCode="Fred Prabhakars Urine by Test d">Urine Medical strip Specific [place] </content>1.01 0 L<content styleCode="Abi lics"> (1.015-1.025 )</content> Hemoglobin NEGATIVE <content Saint [Presence] in styleCode="Fred Prabhakars Urine by Test d">Urine Blood Medical strip </content>NEGA Center TIVE <content styleCode="Abi lics"> (NEGATIVE )</content> Ketones NEGATIVE <content Saint [Mass/volume] styleCode="Fred Prabhakars in Urine by d">Urine Medical Test strip Ketone Center </content>NEGA TIVE MG/DL<content styleCode="Abi lics"> (NEGATIVE MG/DL)</conten t> Urobilinogen 0.2-1.0 <content Saint [Units/volume] styleCode="Fred Prabhakars in Urine by d">Urine Medical Test strip Urobilinogen Center </content>0.2 MG/DL<content styleCode="Abi lics"> (0.2-1.0 MG/DL)</conten t> Protein NEGATIVE <content Saint [Mass/volume] styleCode="Fred Prabhakars in Urine by d">Urine Medical [...] Former Smoker eCW3 (Hu dson 12:00:00 AM [facility]) Smoking 02/02/2020 Former Smoker completed Former Smoker eCW3 ([facility] 12:00:00 AM [facility]) Smoking 02/02/2020 Former Smoker completed Former Smoker eCW3 ([facility] 12:00:00 AM [facility]) Smoking 01/26/2020 Former Smoker completed Former Smoker eCW3 ([facility] 12:00:00 AM [facility]) Smoking 12/29/2019 Former Smoker completed Former Smoker eCW3 ([facility] 12:00:00 AM [facility]) Smoking 12/29/2019 Former Smoker completed Former Smoker eCW3 ([facility] 12:00:00 AM [facility]) Caffeine Use 12/17/2019 completed NEXTGEN (Jose Eduardo nt Details 12:00:00 AM [facility]) Smoking 12/17/2019 Unknown if completed Unknown if ever NEXTGEN ( [facility] 12:00:00 AM EDT ever smoked smoked [facility]) Smoking 12/01/2019 Former Smoker completed Former Smoker eCW3 ([facility] 12:00:00 AM [facility]) Smoking 12/01/2019 Former Smoker completed Former Smoker eCW3 ([facility] 12:00:00 AM [facility]) Smoking 12/01/2019 Former Smoker completed Former Smoker eCW3 ([facility] 12:00:00 AM [facility]) Caffeine Use 11/20/2019 completed NEXTGEN (Jose Eduardo nt Details 12:00:00 AM [facility]) Smoking 11/17/2019 Former Smoker completed Former Smoker eCW3 ([facility] 12:00:00 AM [facility]) Smoking 11/13/2019 Former Smoker completed Former Smoker eCW3 ([facility] 12:00:00 AM [facility]) Smoking 10/31/2019 Former Smoker completed Former Smoker eCW3 ([facility] 12:00:00 AM [facility]) Smoking 10/01/2019 Former Smoker completed Former Smoker eCW3 ([facility] 12:00:00 AM [facility]) Smoking 10/01/2019 Former Smoker completed Former Smoker eCW3 ([facility] 12:00:00 AM [facility]) Smoking 10/01/2019 Former Smoker completed Former Smoker eCW3 ([facility] 12:00:00 AM [facility]) Smoking 08/16/2019 Former Smoker completed Former Smoker eCW3 ([facility] 12:00:00 AM [facility]) Smoking 08/16/2019 Former Smoker completed Former Smoker eCW3 ([facility] 12:00:00 AM [facility]) Smoking 08/16/2019 Former Smoker completed Former Smoker eCW3 ([facility] 12:00:00 AM [facility]) Smoking 08/16/2019 Former Smoker completed Former Smoker eCW3 ([facility] 12:00:00 AM [facility]) Smoking 05/15/2019 Former Smoker completed Former Smoker eCW3 ([facility] 12:00:00 AM [facility]) Smoking 03/28/2019 Former Smoker completed Former Smoker eCW3 ([facility] 12:00:00 AM [facility]) Smoking 03/15/2019 Daily Smoker completed Daily Smoker [...] Former Sm[facility] 01/15/2019 Former Smoker completed Former Smoker eCW3 ([facility] 12:00:00 AM [facility]) Smoking 01/15/2019 Former Smoker completed Former Smoker eCW3 ([facility] 12:00:00 AM [facility]) Smoking 10/24/2018 Current completed Current Smoker eCW3 ([place] 12:00:00 AM EDT Smoker [facility]) Smoking 09/23/2018 Current completed Current Smoker eCW3 ([place] 12:00:00 AM EDT Smoker [facility]) Smoking 08/01/2018 Current completed Current Smoker eCW3 ([place] 12:00:00 AM ED Smoker [facility]) Former Smoker completed Former Smoker eCW3 ([facility]) Former Smoker completed Former Smoker eCW3 ([facility]) Former Smoker completed Former Smoker eCW3 ([facility]) Former Smoker completed Former Smoker eCW3 ([facility]) Former Smoker completed Former Smoker eCW3 ([facility]) Former Smoker completed Former Smoker eCW3 ([facility]) Alcohol Use completed NEXTGEN ([facility]) Former Smoker completed Former Smoker eCW3 ([facility]) Former Smoker completed Former Smoker eCW3 ([facility]) Former Smoker completed Former Smoker eCW3 ([facility]) Former Smoker completed Former Smoker eCW3 ([facility]) Former Smoker completed Former Smoker eCW3 ([facility]) Former Smoker completed Former Smoker eCW3 ([facility]) Former Smoker completed Former Smoker eCW3 ([facility]) Former Smoker completed Former Smoker eCW3 ([facility]) Former Smoker completed Former Smoker eCW3 ([facility]) Former Smoker completed Former Smoker eCW3 ([facility]) Former Smoker completed Former Smoker eCW3 ([facility]) Former Smoker completed Former Smoker eCW3 ([facility]) Former Smoker completed Former Smoker eCW3 ([facility]) Smoking Unknown if completed Unknown if ever [facility] ever smoked smoked [facility] Former Smoker completed Former Smoker eCW3 ([facility]) Former Smoker completed Former Smoker eCW3 ([facility] Former Smoker completed Former Smoker eCW3 ([facility]) Former Smoker completed Former Smoker eCW3 ([facility]) Former Smoker completed Former Smoker eCW3 ([facility]) Smoking Unknown if completed Unknown if ever eCW2 (Hud son ever smoked smoked [facility]) Smoking Unknown if completed Unknown if ever eCW2 (Hud son ever smoked smoked [facility]) Smoking Unknown if completed Unknown if ever eCW2 (Hud son ever smoked smoked [facility]) Smoking Unknown if completed Unknown if ever eCW2 (Hud son ever smoked smoked [facility]) Current completed Current Smoker eCW3 ([place] Smoker [facility]) Current completed Current Smoker eCW3 ([place] Smoker [facility]) Current completed Current Smoker eCW3 ([place] Smoker [facility]) Vital Signs ID Date Data Source UNK Name Value Range Interpretation Code Description Data Source(s) Body temperature 37.502828 37.778855 Sar[facility] Respiratory rate 18 /min 18 /min [facility] Heart rate 70 /min 70 /min [facility] Diastolic blood 89 mm[Hg] 89 mm[Hg] [facility] pressure Medical Center Systolic blood 150 mm[Hg] 150 mm[Hg] [facility] pressure Medical Center Body weight 159.784020 159.589071 kg [facility] Measured kg [facility] [place] Body height 170.899611 170.073194 cm [facility] [place] Body mass index 54.90 kg/m2 54.90 kg/m2 [facility] (BMI) [Ratio] Medical [address] Diastolic blood 78 mm[Hg] 78 mm[Hg] [facility] pressure Medical Center Systolic blood 126 mm[Hg] 126 mm[Hg] [facility] Body temperature 36.130160 36.795085 [facility] Respiratory rate 20 /min 20 /min [facility] Heart rate 78 /min 78 /min [facility] Body weight 159.409831 159.302767 kg [facility] Measured kg Medical Center Body temperature 36.496730 36.673552 [facility] Respiratory rate 18 /min 18 /min [facility] Heart rate 77 /min 77 /min [facility] Diastolic blood 98 mm[Hg] 98 mm[Hg] [facility] Systolic blood 140 mm[Hg] 140 mm[Hg] [facility] Body temperature 36.126981 36.533773 [facility] Respiratory rate 20 /min 20 /min [facility] Oxygen saturation 97 % 97 % [facility] in Arterial blood [facility] by Pulse oximetry Heart rate 56 /min 56 /min [facility] Diastolic blood 72 mm[Hg] 72 mm[Hg] [facility] pressure Medical Center Systolic blood 120 mm[Hg] 120 mm[Hg] [facility] Center Diastolic blood 98 mm[Hg] 98 mm[Hg] [facility] Systolic blood 170 mm[Hg] 170 mm[Hg] [facility] Body temperature 36.359640 36.139373 [facility] Respiratory rate 22 /min 22 /min [facility] Oxygen saturation 97 % 97 % [facility] Arterial blood [facility] by Pulse oximetry Heart rate 58 /min 58 /min [facility] Oxygen saturation 97 % 97 % [facility] in Arterial blood [facility] by Pulse oximetry Oxygen saturation 97 % 97 % [facility] in Arterial blood [facility] by Pulse oximetry Body weight 161.831750 161.080798 kg [facility] Measured kg Medical Center Oxygen saturation 97 % 97 % [facility] in Arterial blood [facility] by Pulse oximetry Body height 167.739226 167.479159 cm [facility] Body mass index 57.6 kg/m2 57.6 kg/m2 [facility] (BMI) [Ratio] Medical [facility] Diastolic blood 81 mm[Hg] 81 mm[Hg] eCW3 ([facility]) Systolic blood 150 mm[Hg] 150 mm[Hg] eCW3 ([facility]) Body temperature 98.1 [degF] 98.1 [degF] eCW3 ( [facility]) Heart rate 20 /min 20 /min eCW3 ([facility]) Body weight [lb_av] eCW3 ([facility]) Body height 62 [in_i] 62 [in_i] eCW3 ([facility]) Body temperature 36.246370 36.255749 Sarika [facility] Respiratory rate 20 /min 20 /min [facility] Oxygen saturation 94 % 94 % [facility] apris in Arterial blood [facility] by Pulse oximetry Heart rate 71 /min 71 /min [facility] Diastolic blood 75 mm[Hg] 75 mm[Hg] [facility] Systolic blood 143 mm[Hg] 143 mm[Hg] [facility] Body weight 151.418788 151.870567 kg [facility] Measured kg [facility] Body height 157.664722 157.393967 cm [facility] Body mass index 61.27 kg/m2 61.27 kg/m2 [facility] ([facility]) [Ratio] Medical [facility] Body weight 158.266748 158.382699 kg [facility] Measured kg [facility] Body temperature 37.496196 37.526899 Sar[facility] Respiratory rate 18 /min 18 /min [facility] Heart rate 70 /min 70 /min [facility] Body height 160.738606 160.319072 cm [facility] Diastolic blood 71 mm[Hg] 71 mm[Hg] [facility] Systolic blood 151 mm[Hg] 151 mm[Hg] [facility] Body mass index 62.00 kg/m2 62.00 kg/m2 [facility] osep (BMI) [Ratio] Medical [facility] Body temperature 36.049879 36.983201 Sarika [facility] Respiratory rate 17 /min 17 /min [facility] Oxygen saturation 96 % 96 % [facility] in Arterial blood [facility] by Pulse oximetry Heart rate 86 /min 86 /min [facility] Diastolic blood 81 mm[Hg] 81 mm[Hg] [facility] Systolic blood 144 mm[Hg] 144 mm[Hg] [facility] Body temperature 36.570613 36.409083 [facility] Respiratory rate 20 /min 20 /min [facility] Oxygen saturation 97 % 97 % [facility] in Arterial blood [facility] by Pulse oximetry Heart rate 74 /min 74 /min [facility] Diastolic blood 84 mm[Hg] 84 mm[Hg] [facility] Systolic blood 148 mm[Hg] 148 mm[Hg] [facility] Diastolic blood 78 mm[Hg] 78 mm[Hg] eCW3 ([facility]) Systolic blood 154 mm[Hg] 154 mm[Hg] eCW3 ([facility]) Body temperature 98.2 [degF] 98.2 [degF] eCW3 ( [facility]) Heart rate 20 /min 20 /min eCW3 ([facility]) Body weight [lb_av] eCW3 ([facility]) Body height 62 [in_i] 62 [in_i] eCW3 ([facility]) Body height 62 [in_i] 62 [in_i] eCW3 ([facility]) Diastolic blood 78 mm[Hg] 78 mm[Hg] eCW3 ([facility]) Systolic blood 119 mm[Hg] 119 mm[Hg] eCW3 ([facility]) Body temperature 98.6 [degF] 98.6 [degF] eCW3 ( [facility]) Heart rate 18 /min 18 /min eCW3 ([facility]) Body weight [lb_av] eCW3 ([facility]) Body height 62 [in_i] 62 [in_i] eCW3 ([facility]) Diastolic blood 82 mm[Hg] 82 mm[Hg] eCW3 ([facility]) Systolic blood 129 mm[Hg] 129 mm[Hg] eCW3 ([facility]) Body temperature 98.8 [degF] 98.8 [degF] eCW3 ( [facility]) Heart rate 20 /min 20 /min eCW3 ([facility]) Body mass index 59.44 kg/m2 59.44 kg/m2 eCW3 ([facility] (BMI) [Ratio] [facility]) Body weight 325 [lb_av] 325 [lb_av] eCW3 ([facility]) Body height 62 [in_i] 62 [in_i] eCW3 ([facility]) Body mass index 62.91 kg/m2 62.91 kg/m2 eCW3 ([facility] (BMI) [Ratio] [facility]) Body weight 344 [lb_av] 344 [lb_av] eCW3 ([facility]) Body height 62 [in_i] 62 [in_i] eCW3 ([facility]) Diastolic blood 79 mm[Hg] 79 mm[Hg] eCW3 ([facility]) Systolic blood 120 mm[Hg] 120 mm[Hg] eCW3 ([facility]) Body temperature 98.2 [degF] 98.2 [degF] eCW3 ( [facility]) Heart rate 20 /min 20 /min eCW3 ([facility]) Body mass index 62.91 kg/m2 62.91 kg/m2 eCW3 ([facility] (BMI) [Ratio] [facility]) Body weight 344 [lb_av] 344 [lb_av] eCW3 ([facility]) Body height 62 [in_i] 62 [in_i] eCW3 ([facility]) Body mass index 62.29 kg/m2 62.29 kg/m2 eCW3 ([facility] (BMI) [Ratio] [facility]) Body weight 340.6 340.6 [lb_av] eCW3 ([facility] on [lb_av] [facility]) Body height 62 [in_i] 62 [in_i] eCW3 ([facility]) Diastolic blood 75 mm[Hg] 75 mm[Hg] eCW3 ([facility]) Systolic blood 134 mm[Hg] 134 mm[Hg] eCW3 ([facility]) Body temperature 98.1 [degF] 98.1 [degF] eCW3 ( [facility]) Heart rate 20 /min 20 /min eCW3 ([facility]) Body mass index 62.29 kg/m2 62.29 kg/m2 eCW3 (Mandeep rachel (BMI) [Ratio] [facility]) Body weight 340.6 340.6 [lb_av] eCW3 ([facility] on [lb_av] [facility]) Body height 62 [in_i] 62 [in_i] eCW3 ([facility]) Diastolic blood 72 mm[Hg] 72 mm[Hg] eCW3 ([facility]) Systolic blood 138 mm[Hg] 138 mm[Hg] eCW3 ([facility]) Body temperature 97.7 [degF] 97.7 [degF] eCW3 ( [facility]) Heart rate 20 /min 20 /min eCW3 ([facility]) Body mass index 65.29 kg/m2 65.29 kg/m2 eCW3 (Mandeep rachel (BMI) [Ratio] [facility]) Body weight 357 [lb_av] 357 [lb_av] eCW3 ([facility]) Body height 62 [in_i] 62 [in_i] eCW3 ([facility]) Body weight [lb_av] eCW3 ([facility]) Body height 62 [in_i] 62 [in_i] eCW3 ([facility]) Diastolic blood 82 mm[Hg] 82 mm[Hg] eCW3 ([facility]) Systolic blood 131 mm[Hg] 131 mm[Hg] eCW3 ([facility]) Body temperature 98.0 [degF] 98.0 [degF] eCW3 ( [facility]) Heart rate 20 /min 20 /min eCW3 ([facility]) Body mass index 61.27 kg/m2 61.27 kg/m2 eCW3 (Mandeep rachel (BMI) [Ratio] [facility]) Body weight 335 [lb_av] 335 [lb_av] eCW3 ([facility]) Body height 62 [in_i] 62 [in_i] eCW3 ([facility]) Patient Treatment Plan of Care Planned Activity Planned Date Details Description Data Source (s) aripiprazole 10 MG Oral 12/18/2019 12:00:00 NEXTGEN ([facility] Tablet [Abilify] AM [facility]) lamotrigine 200 MG Oral 12/18/2019 12:00:00 NEXTGEN ([facility] Tablet [Lamictal] AM [facility]) Hydroxyzine Pamoate 50 MG 12/18/2019 12:00:00 NEXTGEN ([facility] Oral Capsule [Vistaril] [facility]) 200 ACTUAT Albuterol 0.09 12/03/2019 12:00:00 eCW3 ([place] MG/ACTUAT Metered Dose AM [facility]) Inhaler [Ventolin] 200 ACTUAT Albuterol 0.09 12/03/2019 12:00:00 eCW3 ([place] MG/ACTUAT Metered Dose AM [facility]) Inhaler [Ventolin] 60 ACTUAT Fluticasone 12/01/2019 12:00:00 eCW3 ([place] propionate 0.5 [facility]ACTUAT [facility] salmeterol 0.05 MG/ACTUAT Dry Powder Inhaler [Advair] 60 ACTUAT Fluticasone 12/01/2019 12:00:00 eCW3 ([place] propionate 0.5 MG/ACTUAT / AM EDT [facility]) salmeterol 0.05 MG/ACTUAT Dry Powder Inhaler [Advair] aripiprazole 10 MG Oral 11/20/2019 12:00:00 NEXTGEN ([facility] Tablet [Abilify] AM [facility]) lamotrigine 200 MG Oral 11/20/2019 12:00:00 NEXTGEN ([facility] Tablet [Lamictal] [facility]) Hydroxyzine Pamoate 50 MG 11/20/2019 12:00:00 NEXTGEN ([facility] Oral Capsule [Vistaril] [facility]) Foam Dressing - 09/18/2019 12:00:00 eCW3 ([facility]) Foam Dressing - 09/18/2019 12:00:00 eCW3 ([facility]) Foam Dressing - 09/18/2019 12:00:00 eCW3 ([facility]) Hydroxyzine Pamoate 50 MG 09/10/2019 12:00:00 NEXTGEN ([facility] Oral Capsule [Vistaril] [facility]) lamotrigine 200 MG Oral 09/10/2019 12:00:00 NEXTGEN ([facility] Tablet [Lamictal] [facility]) aripiprazole 10 MG Oral 09/10/2019 12:00:00 NEXTGEN ([facility] Tablet [Abilify] [facility]) Ibuprofen 400 MG Oral 08/14/2019 12:00:00 eCW3 ([place] Tablet [facility]) Ibuprofen 400 MG Oral 08/14/2019 12:00:00 eCW3 ([facility] Tablet [facility]) Ibuprofen 400 MG Oral 08/14/2019 12:00:00 eCW3 ([facility] Tablet [facility]) Ibuprofen 400 MG Oral 08/14/2019 12:00:00 eCW3 ([place] Tablet [facility]) Hydroxyzine Pamoate 50 MG 08/01/2019 12:00:00 NEXTGEN ([facility] Oral Capsule [Vistaril] [facility]) lamotrigine 200 MG Oral 08/01/2019 12:00:00 NEXTGEN ([facility] Tablet [Lamictal] [facility]) aripiprazole 10 MG Oral 08/01/2019 12:00:00 NEXTGEN ([facility] Tablet [Abilify] [facility]) Hydroxyzine Pamoate 50 MG 06/04/2019 12:00:00 NEXTGEN ([facility] Oral Capsule [Vistaril] [facility]) lamotrigine 200 MG Oral 06/04/2019 12:00:00 NEXTGEN ([facility] Tablet [Lamictal] AM [facility]) aripiprazole 10 MG Oral 06/04/2019 12:00:00 NEXTGEN ([facility] Tablet [Abilify] AM [facility]) Hydroxyzine Pamoate 50 MG 03/24/2019 12:00:00 NEXTGEN ([facility] Oral Capsule [Vistaril] [facility]) lamotrigine 200 MG Oral 03/24/2019 12:00:00 NEXTGEN ([facility] Tablet [Lamictal] AM [facility]) aripiprazole 10 MG Oral 03/24/2019 12:00:00 NEXTGEN ([facility] Tablet [Abilify] [facility]) aripiprazole 10 MG Oral 01/20/2019 12:00:00 NEXTGEN ([facility] Tablet [Abilify] AM [facility]) Hydroxyzine Pamoate 50 MG 01/20/2019 12:00:00 NEXTGEN ([facility] Oral Capsule [Vistaril] [facility]) lamotrigine 200 MG Oral 01/20/2019 12:00:00 NEXTGEN ([facility] Tablet [Lamictal] [facility]) Zinc Oxide 0.2 MG/MG 01/03/2019 12:00:00 eCW3 ([place] Topical Ointment [facility] ) Hydroxyzine Pamoate 50 MG 12/03/2018 12:00:00 NEXTGEN ([facility] Oral Capsule [Vistaril] [facility]) lamotrigine 200 MG Oral 12/03/2018 12:00:00 NEXTGEN ([facility] Tablet [Lamictal] [facility]) aripiprazole 10 MG Oral 12/03/2018 12:00:00 NEXTGEN ([facility] Tablet [Abilify] [facility]) Acetaminophen 500 MG Oral 11/18/2018 12:00:00 eCW3 ([place] Tablet [facility]) Acetaminophen 500 MG Oral 11/18/2018 12:00:00 eCW3 ([place] Tablet [facility]) Hydroxyzine Pamoate 50 MG 10/23/2018 12:00:00 NEXTGEN ([facility] Oral Capsule [Vistaril] [facility]) lamotrigine 200 MG Oral 10/23/2018 12:00:00 NEXTGEN ([facility] Tablet [Lamictal] [facility]) aripiprazole 10 MG Oral 10/23/2018 12:00:00 NEXTGEN ([facility] Tablet [Abilify] [facility]) Hydroxyzine Pamoate 50 MG 08/16/2018 12:00:00 NEXTGEN ([facility] Oral Capsule [Vistaril] [facility]) lamotrigine 200 MG Oral 08/16/2018 12:00:00 NEXTGEN ([facility] Tablet [Lamictal] [facility]) aripiprazole 10 MG Oral 08/16/2018 12:00[facility]00 [facility] [Abilify[facility]) Disposable Liners - 07/15/2018 12:00:00 e CW3 ([place] [facility]) 200 ACTUAT Albuterol 0.09 07/04/2016 12:00:00 eCW3 ([place] MG/ACTUAT Metered Dose [facility]) Inhaler [Ventolin] Loratadine 10 MG Oral 03/02/2016 12:00:00 eCW3 ([place] Tablet [facility]) montelukast 10 MG Oral 03/02/2016 12:00:00 eCW3 ([place] Tablet [Singulair] [facility] re) Nebulizer compatible with 07/15/2015 12:00:00 eCW3 ([employer] patient insurance [facility] Car e) pregabalin 200 MG Oral eCW3 ([place] Capsule [Lyrica] [facility] ) pregabalin 150 MG Oral eCW3 ([place] Capsule [Lyrica] [facility] ) Omeprazole 20 MG Delayed eCW 3 ([place] Release Oral Capsule [facility]) Omeprazole 20 MG Delayed eCW 3 ([place] Release Oral Capsule [facility]) Lancets - eCW3 ([place] [facility] [facility]) Furosemide 40 MG Oral eCW3 ( [place] Tablet [facility]) pregabalin 100 MG Oral eCW3 ([place] Capsule [Lyrica] [facility] ) Isopropyl Alcohol 0.7 eCW3 ( [facility] ML/ML Medicated [facility] are) Blood Glucose Test - eCW3 ([facility]) ALBUTEROL SULFATE 0.083% eCW 3 ([facility] 2.5 mg/3 ml Health Care) Lancets - eCW3 ([facility]) Furosemide 40 MG Oral eCW3 ( [facility] Tablet [facility]) pregabalin 100 MG Oral eCW3 ([facility] Capsule [Lyrica] [facility] ) Isopropyl Alcohol 0.7 eCW3 ( [facility] ML/ML Medicated [facility] Health C are) Blood Glucose Test - eCW3 ([facility]) Lancets - eCW3 ([facility]) Furosemide 40 MG Oral eCW3 ( [facility] Tablet [facility]) pregabalin 100 MG Oral eCW3 ([facility] Capsule [Lyrica] [facility] ) Isopropyl Alcohol 0.7 eCW3 ( [facility] ML/ML Medicated [facility] C are) Blood Glucose Test - eCW3 ([facility]) Lancets - eCW3 ([facility]) Furosemide 40 MG Oral eCW3 ( [facility] Tablet [facility] Care) pregabalin 100 MG Oral eCW3 ([facility] Capsule [Lyrica] [facility] ) Isopropyl Alcohol 0.7 eCW3 ( [facility] ML/ML Medicated [facility] are) Blood Glucose Test - eCW3 ([facility]) Furosemide 40 MG Oral eCW3 ( [facility] Tablet Health Care) Omeprazole 20 MG Delayed eCW 3 ([facility] Release Oral Capsule [facility]) calcium carbonate-vitamin [facility] Center D3 (Calcium 600 + D(3)) [facility] 600 mg calcium (1,500 mg)-200 unit Tablet Ergocalciferol [id number] [facility] C[facility] Omeprazole 20 MG Delayed [facility] Release Oral Capsule [facility] Loratadine 10 MG Oral [facility] lamotrigine 200 MG Oral Lety [facility] Acetaminophen 325 MG / [facility] Oxycodone Hydrochloride 5 Me dical Center MG Oral Tablet montelukast 10 MG Oral [facility] gabapentin 800 MG Oral [facility] 60 ACTUAT Fluticasone [facility] propionate 0.23 MG/ACTUAT [facility] / salmeterol 0.021 MG/ACTUAT Metered Dose Inhaler [Advair] aripiprazole 10 MG Oral Lety [facility] Omeprazole 20 MG Delayed eCW 3 ([place] Release Oral Caps[facility]) Blood Glucose Test - eCW3 (H [facility]) 120 ACTUAT Fluticasone eCW3 ([place] propionate 0.23 MG/ACTUAT [facility]) / salmeterol 0.021 MG/ACTUAT Metered Dose Inhaler [Advair] pregabalin 100 MG Oral eCW3 ([facility] Capsule [Lyrica] [facility] ) montelukast 10 MG Oral eCW3 ([place] Tablet [Singula] [facility]) Isopropyl Alcohol 0.7 eCW3 ( [place]ves ML/ML [facility] are) pregabalin 100 MG Oral eCW3 ([facility] Capsule [Lyrica] [facility] ) 120 ACTUAT Fluticasone eCW3 ([place] propionate 0.23 MG/ACTUAT [facility]) / salmeterol 0.021 MG/ACTUAT Metered Dose Inhaler [Advair] MULTI-VITAMIN TABLET 1 TAB S [facility] DAILY [facility] Magnesium Oxide [address] [facility] Acetaminophen 325 MG / [facility] Oxycodone Hydrochloride 10 M edical Center MG Oral Tablet Omeprazole 20 MG Delayed [facility] Oral [facility] montelukast 10 MG Oral [facility] Loratadine 10 MG Oral [facility] lamotrigine 200 MG Oral [facility] gabapentin 800 MG Oral [facility] 60 ACTUAT Fluticasone [facility] propionate 0.23 MG/ACTUAT [facility] / salmeterol 0.021 MG/ACTUAT Metered Dose Inhaler [Advair] Ergocalciferol [id number] [facility]NT [facility] Oral Capsule [facility] Baclofen 20 MG Oral Tablet S [facility] aripiprazole 10 MG Oral [facility]
--- NOTE | 2020-02-11 03:41 | HP ---
CHIEF COMPLAINT: leg pain/swelling and lightheadedness PCP: Juvenal HISTORY OF PRESENT ILLNESS: Pt is a 59 y/o female with COPD (not on home O2), ANH (on CPAP at night somewhat compliant), chronic lower extremity lymphedema, chronic pain (sees pain management, on oxycodone and Lyrica), functional paraplegia (wheelchair), HTN, schizophrenia, bipolar disorder, morbid obesity (s/p gastric sleeve), ?DM, HLD who presents with b/l leg pain and swelling which is worse below the knees as well as lightheadedness. She reports these have both been present for "months." She takes daily Lasix and uses an edema pump but swelling and pain is increasing. Pain is 10/10. She does not walk and uses a wheelchair to move around. She also reports lightheadedness that occurs briefly from seconds to minutes. She reports SOB and anxiety. She denies fevers, chills, nausea, vomiting, diarrhea, chest pain, palpitations. History gathering is limited given pt's lack of cooperation. ER course was notable for: (1) LE U/S negative for DVT b/l; CXR cardiomegaly and congestive changes (2) Lasix 40mg IV, duo-nebs, solu-medrol (3) BNP 282 (4) EKG HR 78, NSR vs sinus arrhythmia, normal axis, normal intervals, no ST changes, QTc 449 PAST MEDICAL HISTORY: COPD (not on home O2) ANH (on CPAP at night somewhat compliant) chronic lower extremity lymphedema chronic pain (sees pain management, on oxycodone and Lyrica) functional paraplegia (wheelchair) HTN schizophrenia bipolar disorder morbid obesity (s/p gastric sleeve) ?DM HLD PAST SURGICAL HISTORY: left ankle 2004 left shoulder 2016 cholecystectomy Social History: Smokin/2 ppd Alcohol: socially Drugs: denies lives with Allergies No Known Allergies Allergy (Verified 02/10/20 20:11) HOME MEDICATIONS: Home Medications Medication Instructions Recorded Albuterol Sulfate Inhaler - 2 inh PO Q4H PRN 01/12/14 [Ventolin HFA Inhaler -] Lamotrigine [Lamictal -] 200 mg PO DAILY 01/12/14 Montelukast Na [Singulair -] 10 mg PO HS 01/12/14 Salmeterol/Fluticasone [Advair 1 inh PO PRN PRN 08/26/16 250Mcg/50Mcg -] hydrOXYzine PAMOATE [Vistaril -] 50 mg PO HS 07/09/17 Aripiprazole [Abilify -] 20 mg PO DAILY 09/14/17 Omeprazole 20 mg PO DAILY 12/12/17 Vitamin E - 400 unit PO DAILY #30 capsule 01/07/19 Furosemide 40 mg PO DAILY #14 tablet 05/19/19 Pregabalin [Lyrica -] 100 mg PO TID 07/09/19 Loratadine 10 mg PO DAILY 11/10/19 Zolpidem Tartrate [Ambien] 10 mg PO DAILY 11/10/19 Calcium Carbonate/Vitamin D3 1 each PO DAILY #30 capsule 12/08/19 [Calcium 600 + D3 Softgel] Diclofenac Sodium [Voltaren] 2 gm TP TID PRN #3 tube 01/08/20 Ergocalciferol (Vitamin D2) 50,000 unit PO MOFR #8 capsule 01/08/20 [Vitamin D2] Vitamin B Complex [B Complex] 1 each PO DAILY #30 tablet 01/08/20 Baclofen 20 mg PO TID PRN #90 tablet 02/09/20 Oxycodone HCl/Acetaminophen 1 each PO TID PRN #90 tablet MDD 3 02/09/20 [Endocet 10-325 mg Tablet] REVIEW OF SYSTEMS see HPI PHYSICAL EXAMINATION Vital Signs - 24 hr 02/10/20 02/10/20 02/11/20 19:50 21:30 01:38 Temperature 98.8 F 97.5 F L Pulse Rate 73 Pulse Rate [ 57 L Right Radial] Respiratory 24 H 24 H Rate Blood Pressure 149/82 Blood Pressure 148/99 [Left Arm] O2 Sat by Pulse 92 L 100 99 Oximetry (%) GENERAL: Awake, alert, and fully oriented, in moderate distress. Flushed. Morbidly obese. HEAD: Normal with no signs of trauma. EYES: PERRL, EOMI. EARS, NOSE, THROAT: Ears normal, nares patent, moist mucous membranes. NECK: Normal range of motion. LUNGS: CTAB, decreased sounds at bases, no wheezing or crackles. HEART: RRR, no murmur. ABDOMEN: Soft, nontender, obese, normoactive bowel sounds. UPPER EXTREMITIES: Warm, well-perfused. No peripheral edema. LOWER EXTREMITIES: Warm, well-perfused. Edema present in b/l LE below knees but not pitting. NEUROLOGICAL: Cranial nerves II-XII grossly intact. Normal speech. PSYCHIATRIC: Uncooperative. Moaning in pain, and removing gown because of anxiety and feeling hot. SKIN: Warm, dry. Some flaking near ankles. Laboratory Results - last 24 hr 02/10/20 02/10/20 02/10/20 22:00 22:00 22:00 WBC 5.3 RBC 3.94 Hgb 12.9 Hct 39.0 MCV 99.1 H MCH 32.8 MCHC 33.1 RDW 15.3 Plt Count 342 MPV 8.3 Absolute Neuts (auto) 2.6 Neutrophils % 49.6 Lymphocytes % 38.9 Monocytes % 8.1 Eosinophils % 2.9 Basophils % 0.5 Nucleated RBC % 0 PT with INR 12.90 INR 1.09 Anticoagulation Therapy Puncture Site Patient Temperature ABG pH ABG pCO2 ABG pO2 ABG HCO3 ABG O2 Sat (Measured) ABG O2 Content ABG Base Excess Srini Test Patient On Oxygen O2 Delivery Device Oxygen Flow Rate Vent Mode Vent Rate Mechanical Rate PEEP Pressure Support Vent Sodium 142 Potassium 4.4 Chloride 106 Carbon Dioxide 33 H Anion Gap 3 L BUN 9.2 Creatinine 0.5 L Est GFR (CKD-EPI)AfAm 124.52 Est GFR (CKD-EPI)NonAf 107.44 Random Glucose 94 Calcium 8.9 Magnesium 1.8 Total Bilirubin 0.2 AST 15 ALT 18 Alkaline Phosphatase 96 Creatine Kinase 157 Creatine Kinase Index 0.9 CK-MB (CK-2) 1.5 Troponin I < 0.02 B-Natriuretic Peptide 281.6 H Total Protein 7.3 Albumin 3.4 TSH 2.97 02/10/20 22:00 WBC RBC Hgb Hct MCV MCH MCHC RDW Plt Count MPV Absolute Neuts (auto) Neutrophils % Lymphocytes % Monocytes % Eosinophils % Basophils % Nucleated RBC % PT with INR INR Anticoagulation Therapy No Result Required. Puncture Site No Result Required. Patient Temperature No Result Required. ABG pH 7.337 L ABG pCO2 54.80 H ABG pO2 62.7 L ABG HCO3 28.7 H ABG O2 Sat (Measured) 90.3 L ABG O2 Content No Result Required. ABG Base Excess 1.8 Srini Test No Result Required. Patient On Oxygen No Result Required. O2 Delivery Device No Result Required. Oxygen Flow Rate No Result Required. Vent Mode No Result Required. Vent Rate No Result Required. Mechanical Rate No Result Required. PEEP No Result Required. Pressure Support Vent No Result Required. Sodium Potassium Chloride Carbon Dioxide Anion Gap BUN Creatinine Est GFR (CKD-EPI)AfAm Est GFR (CKD-EPI)NonAf Random Glucose Calcium Magnesium Total Bilirubin AST ALT Alkaline Phosphatase Creatine Kinase Creatine Kinase Index CK-MB (CK-2) Troponin I B-Natriuretic Peptide Total Protein Albumin TSH ASSESSMENT/PLAN: Pt is a 59 y/o female with COPD (not on home O2), ANH (on CPAP at night somewhat compliant), chronic lower extremity lymphedema, chronic pain (sees pain management, on oxycodone and Lyrica), functional paraplegia (wheelchair), HTN, schizophrenia, bipolar disorder, morbid obesity (s/p gastric sleeve), ?DM, HLD who presents with b/l leg pain and swelling which is worse below the knees as well as lightheadedness. Given the lymphedema, lightheadedness, elevated BNP, and SOB, she is admitted to r/o CHF. #acute on chronic b/l LE lymphedema #lightheadedness #?CHF -worsening lymphedema, lightheadedness, and SOB; BNP 282 (170 in May) -CXR congestion and cardiomegaly -concern for CHF and cardiac asthma -low suspicion for OH, first troponin negative, will repeat one -lightheadedness is intermittent, r/o cardiac causes first then can consider neuro causes if negative -Lasix 40mg IV daily -monitor I/Os if possible -echo -cardiology consult -PT #COPD -unsure if COPD exacerbation vs more likely CHF -ABG pH 7.34, pCO2 54.8, pO2 62.7, HCO3 28.7 (33 on BMP) -likely chronic CO2 retaining with COPD and likely OHS -continue home Advair -continue home albuterol -not starting abx or steroids at this time as not likely exacerbation (was given solu-medrol 125mg in ED) -O2 PRN -CPAP at night #chronic pain -verified meds in EMR, sees pain management -oxycodone 10/325 TID PRN -Lyrica TID -Ofirmev Q6H PRN -diclofenac #schizophrenia #bipolar disorder -continue meds once reconciled -given 1 time 2mg Ativan as pt was getting panicked during interview and exam #?DM -borderline A1C in the past 6.3 -repeat A1C DVT Ppx Lovenox FEN no standing fluids monitor labs sodium-controlled diet dispo med/surg FULL CODE Family Medical History Family History: Unable to Obtain Visit type - Emergency Visit Emergency Visit: Yes ED Registration Date: 02/10/20 Care time: The patient presented to the Emergency Department on the above date and was hospitalized for further evaluation of their emergent condition. - New Patient This patient is new to me today: Yes Date on this admission: 02/11/20 - Critical Care Critical Care patient: No ATTENDING PHYSICIAN STATEMENT I saw and evaluated the patient. I reviewed the resident's note and discussed the case with the resident. I agree with the resident's findings and plan as documented. SUBJECTIVE: OBJECTIVE: ASSESSMENT AND PLAN:
[2020-02-11] MEDS ORDERED: ACETAMINOPHEN 325 MG TABLET (FP) PO PRN (03:50)
--- NOTE | 2020-02-11 04:48 | PN ---
Teaching Attending Note Name of Resident: Gricelda Almodovar ATTENDING PHYSICIAN STATEMENT I saw and evaluated the patient. I reviewed the resident's note and discussed the case with the resident. I agree with the resident's findings and plan as documented. SUBJECTIVE: History from patient limited due to agitation at time of evaluation. 59yoF with h/o COPD, morbid obesity, functional paraplegia, chronic back pain, bipolar disorder, schizophrenia, ANH with inconsistent CPAP use, chronic lymphedema on Lasix, and degenerative arthritis who presents with worsening BLE edema and lightheadedness. Patient reported good compliance with Lasix but ntoed progressive bilateral edema for several months. On arrival to the ED she denied chest pain, SOB, palpitations but was noted to have wheezing on exam. Labs notable for BNP 282 slightly increased from baseline, ABG 7.34/54.8/62.7. CXR showed congestive changes. Patient received Duonebs, Solumedrol, and Lasix 40mg IV. At time of evaluation patient states she is starting to have a panic attack and requests medication for anxiety. OBJECTIVE: Vital Signs - 24 hr 02/10/20 02/10/20 02/11/20 19:50 21:30 01:38 Temperature 98.8 F 97.5 F L Pulse Rate 73 Pulse Rate [ 57 L Right Radial] Respiratory 24 H 24 H Rate Blood Pressure 149/82 Blood Pressure 148/99 [Left Arm] O2 Sat by Pulse 92 L 100 99 Oximetry (%) EXAM Gen: Anxious, agitated HEENT: NC/AT. Mild exophthalmous CV: RRR, no MRG Resp: Diminished bilateral bases; no rales or wheezing appreciated Abd: obese, soft, NT, ND Ext: non-pitting edema, diffuse tenderness to the touch wtihout areas of erythema and no visible wounds/lesions Neuro: Refuses lower extremity strength exam due to pain. Strength 5/5 BUE Laboratory Results - last 24 hr 02/10/20 02/10/20 02/10/20 22:00 22:00 22:00 WBC 5.3 RBC 3.94 Hgb 12.9 Hct 39.0 MCV 99.1 H MCH 32.8 MCHC 33.1 RDW 15.3 Plt Count 342 MPV 8.3 Absolute Neuts (auto) 2.6 Neutrophils % 49.6 Lymphocytes % 38.9 Monocytes % 8.1 Eosinophils % 2.9 Basophils % 0.5 Nucleated RBC % 0 PT with INR 12.90 INR 1.09 Anticoagulation Therapy Puncture Site Patient Temperature ABG pH ABG pCO2 ABG pO2 ABG HCO3 ABG O2 Sat (Measured) ABG O2 Content ABG Base Excess Srini Test Patient On Oxygen O2 Delivery Device Oxygen Flow Rate Vent Mode Vent Rate Mechanical Rate PEEP Pressure Support Vent Sodium 142 Potassium 4.4 Chloride 106 Carbon Dioxide 33 H Anion Gap 3 L BUN 9.2 Creatinine 0.5 L Est GFR (CKD-EPI)AfAm 124.52 Est GFR (CKD-EPI)NonAf 107.44 Random Glucose 94 Calcium 8.9 Magnesium 1.8 Total Bilirubin 0.2 AST 15 ALT 18 Alkaline Phosphatase 96 Creatine Kinase 157 Creatine Kinase Index 0.9 CK-MB (CK-2) 1.5 Troponin I < 0.02 B-Natriuretic Peptide 281.6 H Total Protein 7.3 Albumin 3.4 TSH 2.97 02/10/20 22:00 WBC RBC Hgb Hct MCV MCH MCHC RDW Plt Count MPV Absolute Neuts (auto) Neutrophils % Lymphocytes % Monocytes % Eosinophils % Basophils % Nucleated RBC % PT with INR INR Anticoagulation Therapy No Result Required. Puncture Site No Result Required. Patient Temperature No Result Required. ABG pH 7.337 L ABG pCO2 54.80 H ABG pO2 62.7 L ABG HCO3 28.7 H ABG O2 Sat (Measured) 90.3 L ABG O2 Content No Result Required. ABG Base Excess 1.8 Srini Test No Result Required. Patient On Oxygen No Result Required. O2 Delivery Device No Result Required. Oxygen Flow Rate No Result Required. Vent Mode No Result Required. Vent Rate No Result Required. Mechanical Rate No Result Required. PEEP No Result Required. Pressure Support Vent No Result Required. Sodium Potassium Chloride Carbon Dioxide Anion Gap BUN Creatinine Est GFR (CKD-EPI)AfAm Est GFR (CKD-EPI)NonAf Random Glucose Calcium Magnesium Total Bilirubin AST ALT Alkaline Phosphatase Creatine Kinase Creatine Kinase Index CK-MB (CK-2) Troponin I B-Natriuretic Peptide Total Protein Albumin TSH Imaging, EKG reviewed in chart ASSESSMENT AND PLAN: 59yoF with h/o COPD, morbid obesity, functional paraplegia, chronic back pain, bipolar disorder, schizophrenia, ANH with inconsistent CPAP use, chronic lymphedema on Lasix, and degenerative arthritis who presented with worsening BLE edema and lightheadedness, admitted for management of SOB secondary to CHF vs COPD exacerbation. SOB, worsening lower extermity edema, lightheadedness Volume status difficult to assess due to body habitus, however given congestive changes on CXR and elevated BNP from baseline suspect new onset CHF Last echo available is from 2012, no CHF at that time Takes Lasix chronically for lymphedema; s/p 40mg IV Lasix in ED Patient also received Duonebs and Solumedrol in ED for possible COPD exacerbation, will defer further steroids for now - continue Lasix 40mg IV daily - I/O, daily weights - Echo - O2 PRN Severe anxiety; h/o bipolar disorder and schizophrenia Patient was complaining of severe anxiety/panic attack at time of evaluation Possibly exacerbated by steroids - continue home meds - Ativan PRN for severe anxiety Chronic pain: continue Lyrica, oxycodone PRN COPD: continue Symbicort; Duoneb PRN ANH: encourage nightly CPAP DVT ppx: Lovenox subq
[2020-02-11 04:58] VITALS: BMI 77.2
[2020-02-11] MEDS: PREGABALIN 100 MG CAPSULE PO SCH ×4 (06:24→21:38)
[2020-02-11] MEDS ORDERED: INSULIN (NOVOLOG) ASPART 100 UNITS/ML 10ML VIAL ONE (06:39)
[2020-02-11] MEDS ORDERED: INSULIN SLIDING SCALE (NOVOLOG) 1 VIAL SQ SCH (07:00)
--- NOTE | 2020-02-11 08:47 | EKG ---
Test Reason : Blood Pressure : / mmHG Vent. Rate : 078 BPM Atrial Rate : 084 BPM P-R Int : 168 ms QRS Dur : 088 ms QT Int : 394 ms P-R-T Axes : 057 039 035 degrees QTc Int : 449 ms SINUS RHYTHM WITH MARKED SINUS ARRHYTHMIA LOW VOLTAGE QRS CANNOT RULE OUT ANTERIOR INFARCT (CITED ON OR BEFORE 19-MAY-2019) ABNORMAL ECG WHEN COMPARED WITH ECG OF 19-MAY-2019 17:18, NO SIGNIFICANT CHANGE WAS FOUND Confirmed by Abdirashid Bee MD ([id number]) on 02/11/2020 8:46:31 AM Referred By: Confirmed By:Abdirashid Bee MD
[2020-02-11 09:31] LABS: ALBUMIN 3.4 g/dl (3.4-5.0); BILIRUBIN,TOTAL 0.3 mg/dL (0.2-1); CALCIUM 9.2 mg/dL (8.5-10.1); CREATININE 0.5 mg/dL (0.55-1.3); MAGNESIUM 1.9 mg/dL (1.8-2.4); POTASSIUM 4.3 mmol/L (3.5-5.1); TOT PROT 7.6 g/dl (6.4-8.2)
--- NOTE | 2020-02-11 10:10 | CON.CARD ---
Consult Consult Specialty:: Cardiology Referred by:: Zainab Reason for Consultation:: CHF - History of Present Illness Chief Complaint: leg pain, edema History of Present Illness: 59 y/o female with a history of COPD, ANH, chronic lower extremity lymphedema, chronic pain, functional paraplegia uses a wheelchair, HTN, schizophrenia, b ipolar disorder, morbid obesity (s/p gastric sleeve), ?DM, HLD who was admitted with b/l leg pain and swelling which is worse below the knees as well as lightheadedness that has been steadily worsening over several weeks or months. Treated in ER with lasix and steroids. Duplex LE's negative for DVT. CXR showed cardiomegaly, mild elevation of BNP. - History Source History Provided By: Patient, Medical Record - Past Medical History ...LMP Comment: Pt. refused to comment - Alcohol/Substance Use Hx Alcohol Use: No - Smoking History Smoking history: Current every day smoker Have you smoked in the past 12 months: Yes Aproximately how many cigarettes per day: 10 If you are a former smoker, when did you quit?: 6 months Home Medications - Allergies Allergies/Adverse Reactions: Allergies Allergy/AdvReac Type Severity Reaction Status Date / Time No Known Allergies Allergy Verified 02/10/20 20:11 - Home Medications Home Medications: Ambulatory Orders Albuterol Sulfate Inhaler - [Ventolin HFA Inhaler -] 2 inh PO Q4H PRN 01/12/14 Lamotrigine [Lamictal -] 200 mg PO DAILY 01/12/14 Montelukast Na [Singulair -] 10 mg PO HS 01/12/14 Salmeterol/Fluticasone [Advair 250Mcg/50Mcg -] 1 inh PO PRN PRN 08/26/16 hydrOXYzine PAMOATE [Vistaril -] 50 mg PO HS 07/09/17 Aripiprazole [Abilify -] 20 mg PO DAILY 09/14/17 Omeprazole 20 mg PO DAILY 12/12/17 Vitamin E - 400 unit PO DAILY #30 capsule 01/07/19 Furosemide 40 mg PO DAILY #14 tablet 05/19/19 Pregabalin [Lyrica -] 100 mg PO TID 07/09/19 Loratadine 10 mg PO DAILY 11/10/19 Zolpidem Tartrate [Ambien] 10 mg PO DAILY 11/10/19 Calcium Carbonate/Vitamin D3 [Calcium 600 + D3 Softgel] 1 each PO DAILY #30 capsule 12/08/19 Diclofenac Sodium [Voltaren] 2 gm TP TID PRN #3 tube 01/08/20 Ergocalciferol (Vitamin D2) [Vitamin D2] 50,000 unit PO MOFR #8 capsule 01/08/20 Vitamin B Complex [B Complex] 1 each PO DAILY #30 tablet 01/08/20 Baclofen 20 mg PO TID PRN #90 tablet 02/09/20 Oxycodone HCl/Acetaminophen [Endocet 10-325 mg Tablet] 1 each PO TID PRN #90 tablet MDD 3 02/09/20 Review of Systems - Review of Systems Constitutional: reports: No Symptoms Eyes: reports: No Symptoms HENT: reports: No Symptoms Neck: reports: No Symptoms Cardiovascular: reports: Edema Respiratory: reports: No Symptoms Vital Signs: Vital Signs Temperature 97.8 F 02/11/20 06:00 Pulse Rate 66 02/11/20 06:00 Respiratory Rate 20 02/11/20 06:00 Blood Pressure 140/79 02/11/20 06:00 O2 Sat by Pulse Oximetry (%) 96 02/11/20 06:00 Constitutional: Yes: Obese Eyes: Yes: Conjunctiva Clear, EOM Intact HENT: Yes: Normocephalic Neck: Yes: Trachea Midline Respiratory: Yes: CTA Bilaterally Gastrointestinal: Yes: Normal Bowel Sounds, Soft Cardiovascular: Yes: Regular Rate and Rhythm JVD: No Carotid Bruit: No PMI: Non-Displaced Heart Sounds: Yes: S1, S2 Extremities: Yes: Other (lymphedema) - Other Data Labs, Other Data: CBC, BMP 02/11/20 08:40 INR, PTT INR 1.09 (0.83-1.09) 02/10/20 22:00 Troponin, BNP 02/10/20 02/11/20 22:00 08:40 Troponin I < 0.02 < 0.02 B-Natriuretic Peptide 281.6 H Troponin, BNP 02/10/20 02/11/20 22:00 08:40 Troponin I < 0.02 < 0.02 B-Natriuretic Peptide 281.6 H Imaging - Results Chest X-ray: Report Reviewed (cm chf) EKG: Report Reviewed (nlecg) Assessment/Plan 59 y/o female with a history of COPD, ANH, chronic lower extremity lymphedema, chronic pain, functional paraplegia uses a wheelchair, HTN, schizophrenia, bipolar disorder, morbid obesity (s/p gastric sleeve), ?DM, HLD who was admitted with b/l leg pain and swelling which is worse below the knees as well as lightheadedness that has been steadily worsening over several weeks or months. Treated in ER with lasix and steroids. Duplex LE's negative for DVT. CXR showed cardiomegaly, mild elevation of BNP. IMP -chf is likely diastolic, echo ordered -change lasix to bumex when PO (low albumin decreases lasix efficacy). -despite her obesity she has low albumin and possibly this is contributing to her edema. -continue lymphedema rx. -fluid and salt restriction -will follow
[2020-02-11] MEDS ORDERED: PT OWN MED DRAWER 7, Y5N ONE (11:03)
[2020-02-11] MEDS ORDERED: PATIENT'S OWN MEDICATION (NON-FORMULARY) (Baclofen [Baclofen] 20 MG) PO PRN (11:22)
[2020-02-11] MEDS: BUDESONIDE/FORMETEROL FUMARATE 160/4.5 mcg INHALER IH SCH ×2 (11:59→21:38)
[2020-02-11] MEDS: ENOXAPARIN NA (PORCINE) 40 MG/0.4 ML DISP.SYRIN SQ SCH (11:59)
[2020-02-11] MEDS: FUROSEMIDE 40 MG/4 ML INJECTABLE VIAL IVPUSH SCH (11:59)
[2020-02-11] MEDS: oxyCODONE HCL 5 MG TABLET PO PRN ×2 (12:00→21:48)
--- NOTE | 2020-02-11 12:54 | ECHO ---
Name: AGUSTIN PALUMBO Exam:Adult Echocardiogram Study Date: 02/11/2020 11:09 AM Age: 59 yrs Reason For Study: Lightheadedness, Elevated BNP Height: 62 in Weight: 400 lb BSA: 2.6 m2 MMode/2D Measurements & Calculations Ao root diam: 2.9 cm LVOT diam: 2.0 cm LA dimension: 4.6 cm ACS: 1.9 cm LAV (MOD-bp): 58.0 ml TAPSE: 2.7 cm RV S Danilo: 14.0 cm/sec Doppler Measurements & Calculations MV E max danilo: 117.2 cm/sec Ao V2 max: 171.0 cm/sec MV A max danilo: 100.0 cm/sec Ao max P.7 mmHg MV E/A: 1.2 Ao V2 mean: 115.6 cm/sec MV dec time: 0.20 sec Ao mean P.3 mmHg Ao V2 VTI: 36.6 cm CHAYITO(I,D): 2.4 cm2 CHAYITO(V,D): 2.3 cm2 LV V1 max P.8 mmHg SV(LVOT): 86.2 ml LV V1 mean P.1 mmHg LV V1 max: 130.2 cm/sec LV V1 mean: 80.5 cm/sec LV V1 VTI: 28.4 cm TR max danilo: 239.8 cm/sec PA V2 max: 95.0 cm/sec TR max P.5 mmHg PA max P.6 mmHg PA acc slope: 486.3 cm/sec2 PA acc time: 0.17 sec Med Peak E' Danilo: 7.2 cm/sec PA pr(Accel): 1.4 mmHg Med E/e': 16.3 Lat Peak E' Danilo: 9.4 cm/sec Lat E/e': 12.5 Tech Comments TDS due to morbid obesity. Procedure A complete two-dimensional transthoracic echocardiogram was performed (2D, M-mode, Doppler and color flow Doppler). Left Ventricle The left ventricular size, thickness and function are normal. Ejection Fraction = 65%. The transmitra l spectral Doppler flow pattern is suggestive of impaired LV relaxation. The left ventricular wall anuja on is normal. Right Ventricle The right ventricle is normal in size and function. Atria The left atrium is moderately dilated. Right atrial size is normal. Mitral Valve The mitral valve is normal in structure and function. There is trace to mild mitral regurgitation. Tricuspid Valve The tricuspid valve is normal in structure and function. There is Trace to mild tricuspid regurgitati on. Right ventricular systolic pressure is 28 mmhg. Aortic Valve The aortic valve is normal in structure and function. Trace aortic regurgitation. Pulmonic Valve The pulmonic valve is normal in structure and function. Great Vessels The aortic root is normal size. Pericardium/Pleura There is no pericardial effusion. There is no pleural effusion. Interpretation Summary The left ventricular size, thickness and function are normal Ejection Fraction = 65%. The left atrium is moderately dilated. There is Trace to mild tricuspid regurgitation. Right ventricular systolic pressure is 28 mmhg. Trace aortic regurgitation. There is trace to mild mitral regurgitation. MD Abdirashid Bee 02/11/2020 12:54 PM
--- NOTE | 2020-02-11 14:00 | PN ---
Teaching Attending Note Name of Resident: Arsenio Patiño ATTENDING PHYSICIAN STATEMENT I saw and evaluated the patient. I reviewed the resident's note and discussed the case with the resident. I agree with the resident's findings and plan as documented. SUBJECTIVE: Seen and examined at bedside. Patient denies current shortness of breath or dif ficulty breathing. Speaking in full sentences on room air. Her chief complaint is that she has pain and inability to move her left lower extremity. States normally she is able to move her left lower extremity. She is a poor historian and is unable to explain how she lost movement of her legs. OBJECTIVE Last Vital Signs Temp Pulse Resp BP Pulse Ox 98.6 F 82 18 135/88 97 02/11/20 09:20 02/11/20 09:20 02/11/20 09:20 02/11/20 09:20 02/11/20 09:30 PE: Per resident note Labs/Imaging: reviewed ASSESSMENT/PLAN 59-year-old female with a history of COPD, morbid obesity, functional paraplegia, chronic back pain, bipolar disorder, schizophrenia, ANH with inconsistent CPAP use, chronic lymphedema on Lasix, who presented with worsening lower extremity edema and lightheadedness and concern for CHF versus COPD exacerbation. #Severe lower extremity edema BNP is quite low and chest x-ray is of poor quality due to obesity so it is unclear how much of this is due to lymphedema and how much is due to low albumin or cardiac Consult Dr. Cruz for lymphedema (Pt follows him for this) -Currently on IV Lasix, will discuss switch to Bumex with cardiology Fluid and salt restriction #Unable to move left lower extremity Patient states that this is a new problem. Sensation is intact. Unclear on what her neurologic history is relating to her inability to ambulate at baseline. Obtain medical records from [facility] We will discuss with Dr. Cruz and outpatient neurologist #Shortness of breath: Improved Patient is evasive in exam and does not currently complain of shortness of breath or show symptoms Echocardiogram CT chest without contrast #ANH/obesity hypoventilation syndrome Patient refusing CPAP machine #Chronic pain Continue home medications #Psychiatric history Continue home medications
[2020-02-11 14:19] LABS: HEMATOCRIT 39.6 % (32.4-45.2); HEMOGLOBIN 13.2 GM/dL (10.7-15.3); MCH 32.3 pg (25.7-33.7); MCHC 33.3 g/dl (32.0-36.0); MEAN PLT VOLUME 8.3 fl (7.5-11.1); PLATELET COUNT 349 K/MM3 (134-434); RBC 4.09 M/mm3 (3.60-5.2); RDW 14.9 % (11.6-15.6); WHITE BLOOD COUNT 6.6 K/mm3 (4.0-10.0)
[2020-02-11 14:30] LABS: BASO % 0.4 % (0-2.0); HEMATOCRIT 41.5 % (32.4-45.2); HEMOGLOBIN 13.7 GM/dL (10.7-15.3); LYMPH % 13.3 % (8-40); MCH 32.7 pg (25.7-33.7); MEAN CELL VOLUME 99.1 fl (80-96); MEAN PLT VOLUME 8.9 fl (7.5-11.1); MONO % 0.8 % (3.8-10.2); NEUT % 85.5 % (42.8-82.8); PLATELET COUNT 364 K/MM3 (134-434); RBC 4.19 M/mm3 (3.60-5.2); RDW 15.1 % (11.6-15.6); WHITE BLOOD COUNT 6.2 K/mm3 (4.0-10.0)
[2020-02-11] MEDS: BACLOFEN 10 MG TABLET (FP) PO PRN (14:36)
[2020-02-11 15:09] LABS: PLATELET ESTIMATE ADEQUATE
--- NOTE | 2020-02-11 18:24 | PN ---
Physical Exam: SUBJECTIVE: Patient seen and examined at bedside. Endorses increasing lower extremity swelling OBJECTIVE: Vital Signs Period Temp Pulse Resp BP Sys/Hobson Pulse Ox Last 24 Hr 97.5 F-98.8 F 57-82 18-24 135-149/74-99 90-100 GENERAL: NAD HEAD: Normal with no signs of trauma. EYES: EOMI Sclera Clear LUNGS: Decreased breath sounds HEART: RRR S1S2 No MRG ABDOMEN: Obese NDNT EXTREMITIES: Severe lymphadema bilaterally. Cannot lift legs off of bed. SILT bilaterally. NEUROLOGICAL: AAAOx3 No Focal neuro deficits Laboratory Results - last 24 hr 02/10/20 02/10/20 02/10/20 22:00 22:00 22:00 WBC 5.3 RBC 3.94 Hgb 12.9 Hct 39.0 MCV 99.1 H MCH 32.8 MCHC 33.1 RDW 15.3 Plt Count 342 MPV 8.3 Absolute Neuts (auto) 2.6 Neutrophils % 49.6 Neutrophils % (Manual) Band Neutrophils % Lymphocytes % 38.9 Lymphocytes % (Manual) Monocytes % 8.1 Monocytes % (Manual) Eosinophils % 2.9 Basophils % 0.5 Nucleated RBC % 0 Platelet Estimate PT with INR 12.90 INR 1.09 Anticoagulation Therapy Puncture Site Patient Temperature ABG pH ABG pCO2 ABG pO2 ABG HCO3 ABG O2 Sat (Measured) ABG O2 Content ABG Base Excess Srini Test Patient On Oxygen O2 Delivery Device Oxygen Flow Rate Vent Mode Vent Rate Mechanical Rate PEEP Pressure Support Vent Sodium 142 Potassium 4.4 Chloride 106 Carbon Dioxide 33 H Anion Gap 3 L BUN 9.2 Creatinine 0.5 L Est GFR (CKD-EPI)AfAm 124.52 Est GFR (CKD-EPI)NonAf 107.44 POC Glucometer Random Glucose 94 Hemoglobin A1c % Calcium 8.9 Magnesium 1.8 Total Bilirubin 0.2 AST 15 ALT 18 Alkaline Phosphatase 96 Creatine Kinase 157 Creatine Kinase Index 0.9 CK-MB (CK-2) 1.5 Troponin I < 0.02 B-Natriuretic Peptide 281.6 H Total Protein 7.3 Albumin 3.4 TSH 2.97 02/10/20 02/11/20 02/11/20 22:00 06:22 08:40 WBC 6.2 RBC 4.19 Hgb 13.7 Hct 41.5 MCV 99.1 H MCH 32.7 MCHC 33.0 RDW 15.1 Plt Count 364 MPV 8.9 Absolute Neuts (auto) 5.3 Neutrophils % 85.5 H D Neutrophils % (Manual) 80.0 Band Neutrophils % 4.0 Lymphocytes % 13.3 D Lymphocytes % (Manual) 11.0 Monocytes % 0.8 L D Monocytes % (Manual) 4 Eosinophils % 0.0 D Basophils % 0.4 Nucleated RBC % 0 Platelet Estimate Adequate PT with INR INR Anticoagulation Therapy No Result Required. Puncture Site No Result Required. Patient Temperature No Result Required. ABG pH 7.337 L ABG pCO2 54.80 H ABG pO2 62.7 L ABG HCO3 28.7 H ABG O2 Sat (Measured) 90.3 L ABG O2 Content No Result Required. ABG Base Excess 1.8 Srini Test No Result Required. Patient On Oxygen No Result Required. O2 Delivery Device No Result Required. Oxygen Flow Rate No Result Required. Vent Mode No Result Required. Vent Rate No Result Required. Mechanical Rate No Result Required. PEEP No Result Required. Pressure Support Vent No Result Required. Sodium Potassium Chloride Carbon Dioxide Anion Gap BUN Creatinine Est GFR (CKD-EPI)AfAm Est GFR (CKD-EPI)NonAf POC Glucometer 152 Random Glucose Hemoglobin A1c % Calcium Magnesium Total Bilirubin AST ALT Alkaline Phosphatase Creatine Kinase Creatine Kinase Index CK-MB (CK-2) Troponin I B-Natriuretic Peptide Total Protein Albumin TSH 02/11/20 02/11/20 02/11/20 08:40 08:40 08:40 WBC RBC Hgb Hct MCV MCH MCHC RDW Plt Count MPV Absolute Neuts (auto) Neutrophils % Neutrophils % (Manual) Band Neutrophils % Lymphocytes % Lymphocytes % (Manual) Monocytes % Monocytes % (Manual) Eosinophils % Basophils % Nucleated RBC % Platelet Estimate PT with INR INR Anticoagulation Therapy Puncture Site Patient Temperature ABG pH ABG pCO2 ABG pO2 ABG HCO3 ABG O2 Sat (Measured) ABG O2 Content ABG Base Excess Srini Test Patient On Oxygen O2 Delivery Device Oxygen Flow Rate Vent Mode Vent Rate Mechanical Rate PEEP Pressure Support Vent Sodium 143 Potassium 4.3 Chloride 105 Carbon Dioxide 32 Anion Gap 6 L BUN 10.0 Creatinine 0.5 L Est GFR (CKD-EPI)AfAm 124.52 Est GFR (CKD-EPI)NonAf 107.44 POC Glucometer Random Glucose 160 H Hemoglobin A1c % 6.1 Calcium 9.2 Magnesium 1.9 Total Bilirubin 0.3 AST 12 L ALT 21 Alkaline Phosphatase 103 Creatine Kinase Creatine Kinase Index CK-MB (CK-2) Troponin I < 0.02 B-Natriuretic Peptide Total Protein 7.6 Albumin 3.4 TSH 02/11/20 02/11/20 02/11/20 12:03 14:03 16:40 WBC 6.6 RBC 4.09 Hgb 13.2 Hct 39.6 MCV 97.0 H MCH 32.3 MCHC 33.3 RDW 14.9 Plt Count 349 MPV 8.3 Absolute Neuts (auto) Neutrophils % Neutrophils % (Manual) Band Neutrophils % Lymphocytes % Lymphocytes % (Manual) Monocytes % Monocytes % (Manual) Eosinophils % Basophils % Nucleated RBC % Platelet Estimate PT with INR INR Anticoagulation Therapy Puncture Site Patient Temperature ABG pH ABG pCO2 ABG pO2 ABG HCO3 ABG O2 Sat (Measured) ABG O2 Content ABG Base Excess Srini Test Patient On Oxygen O2 Delivery Device Oxygen Flow Rate Vent Mode Vent Rate Mechanical Rate PEEP Pressure Support Vent Sodium Potassium Chloride Carbon Dioxide Anion Gap BUN Creatinine Est GFR (CKD-EPI)AfAm Est GFR (CKD-EPI)NonAf POC Glucometer 155 148 Random Glucose Hemoglobin A1c % Calcium Magnesium Total Bilirubin AST ALT Alkaline Phosphatase Creatine Kinase Creatine Kinase Index CK-MB (CK-2) Troponin I B-Natriuretic Peptide Total Protein Albumin TSH Active Medications Generic Name Dose Route Start Last Admin Trade Name Joeq PRN Reason Stop Dose Admin Acetaminophen 1,000 mg 02/11/20 03:12 Ofirmev Injection - IVPB Q6H PRN PAIN LEVEL 4 - 6 Albuterol Sulfate 2 puff 02/11/20 03:11 Ventolin Hfa Inhaler - IH Q4H PRN SHORT OF BREATH/WHEEZING Baclofen 20 mg 02/11/20 13:14 02/11/20 14:36 Lioresal - PO 20 mg Q8H PRN Administration MUSCLE SPASMS Budesonide/Formoterol Fumarate 1 puff 02/11/20 10:00 02/11/20 11:59 Symbicort 160/4.5mcg - IH 1 puff BID ABDON Administration Enoxaparin Sodium 40 mg 02/11/20 10:00 02/11/20 11:59 Lovenox - SQ 40 mg DAILY ABDON Administration Furosemide 40 mg 02/11/20 10:00 02/11/20 11:59 Lasix Injection - IVPUSH 40 mg DAILY ABDON Administration Non-Formulary Medication 2 gm 02/11/20 03:15 Diclofenac Sodium [Voltaren] TP TID PRN PAIN LEVEL 6-10 Oxycodone HCl 10 mg 02/11/20 03:49 02/11/20 12:00 Roxicodone - PO 10 mg TID PRN Administration PAIN 7-10 Pregabalin 100 mg 02/11/20 06:00 02/11/20 14:36 Lyrica - PO 100 mg TID ABDON Administration ASSESSMENT/PLAN: 59-year-old female with a history of COPD, morbid obesity, functional paraplegia, chronic back pain, bipolar disorder, schizophrenia, ANH with inconsistent CPAP use, chronic lymphedema on Lasix, who presented with worsening lower extremity edema and lightheadedness and concern for CHF versus COPD exacerbation. #Severe lower extremity edema BNP is quite low albeit may be spuriously low in obese patients. Chest x-ray is of poor quality due to obesity. CT Chest w/o contrast ordered to further assess congestive changes. Consult Dr. Cruz for lymphedema (Pt follows him for this) -Cardio on board: chf is likely diastolic, echo ordered, change lasix to bumex when PO (low albumin decreases lasix efficacy), despite her obesity she has low albumin and possibly this is contributing to her edema. Continue lymphedema rx. -fluid and salt restriction Fluid and salt restriction -Will also order echocardiogram to assess for LVEF #Unable to move left lower extremity Sensation is intact. Unclear on what her neurologic history is relating to her inability to ambulate at baseline. Obtain medical records from [facility] We will discuss with Dr. Cruz and outpatient neurologist #ANH/obesity hypoventilation syndrome Patient refusing CPAP machine #Chronic pain Continue home medications #Psychiatric history Continue home medications #FEN -No Fluids -Monitor electrolytes -Sodium Controlled Diet #DVT ppx: -Lovenox 40 SQ Daily #Dispo -Med-Surg Visit type - Emergency Visit Emergency Visit: Yes ED Registration Date: 02/10/20 Care time: The patient presented to the Emergency Department on the above date and was hospitalized for further evaluation of their emergent condition. - New Patient This patient is new to me today: Yes Date on this admission: 02/11/20 - Critical Care Critical Care patient: No - Discharge Referral Referred to [facility] Med P.C.: No ATTENDING PHYSICIAN STATEMENT I saw and evaluated the patient. I reviewed the resident's note and discussed the case with the resident. I agree with the resident's findings and plan as documented. SUBJECTIVE: OBJECTIVE: ASSESSMENT AND PLAN:
[2020-02-12] MEDS: BACLOFEN 10 MG TABLET (FP) PO PRN (02:00)
[2020-02-12] MEDS: PREGABALIN 100 MG CAPSULE PO SCH ×3 (06:55→22:14)
[2020-02-12] MEDS ORDERED: ALBUTEROL SO4 HFA INHALER IH PRN (08:12)
[2020-02-12 08:30] LABS: HEMATOCRIT 39.2 % (32.4-45.2); HEMOGLOBIN 12.8 GM/dL (10.7-15.3); MCHC 32.8 g/dl (32.0-36.0); MEAN CELL VOLUME 97.7 fl (80-96); MEAN PLT VOLUME 8.2 fl (7.5-11.1); PLATELET COUNT 364 K/MM3 (134-434); RBC 4.01 M/mm3 (3.60-5.2)
[2020-02-12 08:53] LABS: BLOOD UREA NITROGEN 12.2 mg/dL (7-18); CREATININE 0.5 mg/dL (0.55-1.3); MAGNESIUM 1.8 mg/dL (1.8-2.4); PHOSPHOROUS 3.1 mg/dL (2.5-4.9); POTASSIUM 3.8 mmol/L (3.5-5.1)
--- NOTE | 2020-02-12 09:36 | PN ---
Progress Note, Physician Chief Complaint: no new complaints. still with leg edema and pain. History of Present Illness: 59 y/o female with a history of COPD, ANH, chronic lower extremity lymphedema, chronic pain, functional paraplegia uses a wheelchair, HTN, schizophrenia, bipolar disorder, morbid obesity (s/p gastric sleeve), ?DM, HLD who was admitted with b/l leg pain and swelling which is worse below the knees as well as lightheadedness that has been steadily worsening over several weeks or months. Treated in ER with lasix and steroids. Duplex LE's negative for DVT. CXR showed cardiomegaly, mild elevation of BNP. echo 02/11/20 nlef unremarkable valves. cath 2017 [facility] normal EF, normal coronaries. - Current Medication List Current Medications: Active Medications Acetaminophen (Ofirmev Injection -) 1,000 mg IVPB Q6H PRN PRN Reason: PAIN LEVEL 4 - 6 Last Admin: 02/12/20 02:00 Dose: 1,000 mg Documented by: Albuterol Sulfate (Ventolin Hfa Inhaler -) 2 puff IH Q4H PRN PRN Reason: ASTHMA Aripiprazole (Abilify) 10 mg PO DAILY [facility] Baclofen (Lioresal -) 20 mg PO Q8H PRN PRN Reason: MUSCLE SPASMS Last Admin: 02/12/20 02:00 Dose: 20 mg Documented by: Budesonide/Formoterol Fumarate (Symbicort 160/4.5mcg -) 1 puff IH BID [facility] Last Admin: 02/11/20 21:38 Dose: 1 puff Documented by: Enoxaparin Sodium (Lovenox -) 40 mg SQ DAILY [facility] Last Admin: 02/11/20 11:59 Dose: 40 mg Documented by: Furosemide (Lasix Injection -) 40 mg IVPUSH DAILY [facility] Last Admin: 02/11/20 11:59 Dose: 40 mg Documented by: Lamotrigine (Lamictal -) 200 mg PO DAILY [facility] Montelukast Sodium (Singulair -) 10 mg PO HS [facility] Multivitamins (Total B With C -) 1 each PO DAILY [facility] Non-Formulary Medication (Diclofenac Sodium [Voltaren]) 2 gm TP TID PRN PRN Reason: PAIN LEVEL 6-10 Non-Formulary Medication (Calcium Carbonate/Vitamin D3 [Calcium 600-Vit D3 200 Tablet]) 1 tab PO DAILY [facility] Non-Formulary Medication (Mv-Min/Folic/Vit K/Lycop/Coq10 [Daily Multivitamin Capsule]) 1 cap PO DAILY [facility] Oxycodone HCl (Roxicodone -) 10 mg PO TID PRN PRN Reason: PAIN 7-10 Last Admin: 02/11/20 21:48 Dose: 10 mg Documented by: Pregabalin (Lyrica -) 100 mg PO TID [facility] Last Admin: 02/12/20 06:55 Dose: 100 mg Documented by: - Objective Vital Signs: Vital Signs Temperature 98.3 F 02/12/20 06:00 Pulse Rate 63 02/12/20 06:00 Respiratory Rate 20 02/12/20 06:00 Blood Pressure 140/75 02/12/20 06:00 O2 Sat by Pulse Oximetry (%) 96 02/12/20 08:14 Constitutional: Yes: No Distress, Calm Eyes: Yes: EOM Intact HENT: Yes: Normocephalic Neck: Yes: Trachea Midline Cardiovascular: Yes: Regular Rate and Rhythm Respiratory: Yes: CTA Bilaterally Gastrointestinal: Yes: Abdomen, Obese Extremities: Yes: Other (lymphedema) Labs: CBC, BMP 02/12/20 08:05 02/12/20 08:05 INR, PTT INR 1.09 (0.83-1.09) 02/10/20 22:00 Assessment/Plan 59 y/o female with a history of COPD, ANH, chronic lower extremity lymphedema, chronic pain, functional paraplegia uses a wheelchair, HTN, schizophrenia, bipolar disorder, morbid obesity (s/p gastric sleeve), ?DM, HLD who was admitted with b/l leg pain and swelling which is worse below the knees as well as lightheadedness that has been steadily worsening over several weeks or months. Treated in ER with lasix and steroids. Duplex LE's negative for DVT. CXR showed cardiomegaly, mild elevation of BNP. echo 02/11/20 nlef unremarkable valves. cath [facility] 2016 normal EF, normal coronaries. IMP -chf is diastolic. -change lasix to bumex when PO (low albumin decreases lasix efficacy). -despite her obesity she has low albumin and possibly this is contributing to her edema. -continue lymphedema rx. -fluid and salt restriction -will see as needed.
[2020-02-12] MEDS: VITAMIN B COMPLEX W/C COMBO TABLET (FP) PO SCH (09:37)
[2020-02-12] MEDS: BUDESONIDE/FORMETEROL FUMARATE 160/4.5 mcg INHALER IH SCH ×2 (09:37→22:14)
[2020-02-12] MEDS: ARIPiprazole 10 MG TABLET PO SCH (09:37)
[2020-02-12] MEDS: ENOXAPARIN NA (PORCINE) 40 MG/0.4 ML DISP.SYRIN SQ SCH ×2 (09:38→09:40)
[2020-02-12] MEDS ORDERED: COQ10 PO SCH (10:00)
[2020-02-12] MEDS ORDERED: PATIENT'S OWN MEDICATION (NON-FORMULARY) (Calcium Carbonate/Vitamin D3 [Calcium 600-Vit D3 PO SCH (10:00)
[2020-02-12] MEDS ORDERED: PATIENT'S OWN MEDICATION (NON-FORMULARY) (Fluticasone/Salmeterol [Advair Hfa 230-21 Mcg In PO SCH (10:00)
[2020-02-12] MEDS ORDERED: LYCOP PO SCH (10:00)
[2020-02-12] MEDS ORDERED: [UNRECOGNIZED DRUG - OTHER] PO SCH (10:00)
[2020-02-12] MEDS ORDERED: FOLIC PO SCH (10:00)
[2020-02-12] MEDS ORDERED: MV MIN PO SCH (10:00)
[2020-02-12] MEDS ORDERED: VIT K PO SCH (10:00)
[2020-02-12] MEDS: FUROSEMIDE 40 MG/4 ML INJECTABLE VIAL IVPUSH SCH (11:02)
--- NOTE | 2020-02-12 12:49 | PN ---
Progress Note (short form) - Note Progress Note: Vascular Surgery Pt seen and examined. Bl lower ext lymphedema. Pt has pump at home for a month now. Pt complains of body aches, hip pain. Cont compression for lymphedema. Can follow in vascular clinic. Dave Cruz DO
--- NOTE | 2020-02-12 14:51 | PN ---
Teaching Attending Note Name of Resident: Arsenio Patiño ATTENDING PHYSICIAN STATEMENT I saw and evaluated the patient. I reviewed the resident's note and discussed the case with the resident. I agree with the resident's findings and plan as documented. SUBJECTIVE: Patient denies shortness of breath, chest pain. Is able to move left lower extr emity. Seen by Dr. Cruz who follows this patient as an outpatient. Lymphedema can be managed as an outpatient. Medically cleared for discharge. OBJECTIVE Last Vital Signs Temp Pulse Resp BP Pulse Ox 98.3 F 63 20 140/75 95 02/12/20 06:00 02/12/20 06:00 02/12/20 06:00 02/12/20 06:00 02/12/20 12:05 PE: Per resident note Labs/Imaging: reviewed ASSESSMENT/PLAN 59-year-old female with a history of COPD, morbid obesity, functional paraplegia, chronic back pain, bipolar disorder, schizophrenia, ANH with inconsistent CPAP use, chronic lymphedema on Lasix, who presented with worsening lower extremity edema and lightheadedness and concern for CHF versus COPD exacerbation. Patient was hemodynamically stable on room air. Echocardiogram was unremarkable. Pain and swelling of left lower extremity is likely primarily due to lymphedema. Seen by Dr. Cruz who follows the patient for this condition as an outpatient, who stated can be treated as outpatient. Medically cleared for discharge. Patient will be switched from Lasix to Bumex to assist with diuresis.
[2020-02-12] MEDS ORDERED: PT OWN MED DRAWER 7, Y5N ONE ×2 (15:22→15:30)
[2020-02-12] MEDS: oxyCODONE HCL 5 MG TABLET PO PRN (15:24)
[2020-02-12] MEDS: BUMETANIDE 1 MG TABLET PO SCH (15:24)
--- NOTE | 2020-02-12 18:07 | PN ---
Physical Exam: SUBJECTIVE: Patient seen and examined at bedside. Endorses increasing lower extremity edema. OBJECTIVE: Vital Signs Period Temp Pulse Resp BP Sys/Hobson Pulse Ox Last 24 Hr 98.3 F-98.6 F 63-83 20-20 140-150/75-83 94-111 GENERAL: No acute distress HEAD: Normal with no signs of trauma. EYES: EOMI Sclera Clear LUNGS: Difficult to appreciate breath sounds 2/2 patient's body habitus HEART: RRR S1S2 No MRG ABDOMEN: Obese NDNT EXTREMITIES: Severe lymphadema bilaterally. Cannot lift legs off of bed. SILT bilaterally. Laboratory Results - last 24 hr 02/11/20 02/12/20 02/12/20 01:45 08:05 08:05 WBC 8.0 RBC 4.01 Hgb 12.8 Hct 39.2 MCV 97.7 H MCH 32.0 MCHC 32.8 RDW 15.0 Plt Count 364 MPV 8.2 Sodium 141 Potassium 3.8 Chloride 103 Carbon Dioxide 33 H Anion Gap 4 L BUN 12.2 Creatinine 0.5 L Est GFR (CKD-EPI)AfAm 124.52 Est GFR (CKD-EPI)NonAf 107.44 Random Glucose 125 H Calcium 9.0 Phosphorus 3.1 Magnesium 1.8 COVID-19 (PATRICK) Not detected Active Medications Generic Name Dose Route Start Last Admin Trade Name Freq PRN Reason Stop Dose Admin Acetaminophen 1,000 mg 02/11/20 03:12 02/12/20 02:00 Ofirmev Injection - IVPB 1,000 mg Q6H PRN Administration PAIN LEVEL 4 - 6 Albuterol Sulfate 2 puff 02/12/20 08:12 Ventolin Hfa Inhaler - IH Q4H PRN ASTHMA Aripiprazole 10 mg 02/12/20 10:00 02/12/20 09:37 Abilify PO 10 mg DAILY ABDON Administration Baclofen 20 mg 02/11/20 13:14 02/12/20 02:00 Lioresal - PO 20 mg Q8H PRN Administration MUSCLE SPASMS Budesonide/Formoterol Fumarate 1 puff 02/11/20 10:00 02/12/20 09:37 Symbicort 160/4.5mcg - IH 1 puff BID ABDON Administration Bumetanide 1 mg 02/12/20 14:00 02/12/20 15:24 Bumex - PO 1 mg BIDLASIX ABDON Administration Enoxaparin Sodium 40 mg 02/11/20 10:00 02/12/20 09:40 Lovenox - SQ 40 mg DAILY ABDON Administration Lamotrigine 200 mg 02/12/20 10:00 02/12/20 09:38 Lamictal - PO 200 mg DAILY ABDON Administration Montelukast Sodium 10 mg 02/12/20 22:00 Singulair - PO HS ABDON Multivitamins 1 each 02/12/20 10:00 02/12/20 09:37 Total B With C - PO 1 each DAILY ABDON Administration Non-Formulary Medication 2 gm 02/11/20 03:15 Diclofenac Sodium [Voltaren] TP TID PRN PAIN LEVEL 6-10 Non-Formulary Medication 1 tab 02/12/20 10:00 Calcium Carbonate/Vitamin D3 [Calcium 600-Vit D3 200 Tablet] PO DAILY [facility] Non-Formulary Medication 1 cap 02/12/20 10:00 Mv-Min/Folic/Vit K/Lycop/Coq10 [Daily Multivitamin Capsule] PO DAILY [facility] Oxycodone HCl 10 mg 02/11/20 03:49 02/12/20 15:24 Roxicodone - PO 10 mg TID PRN Administration PAIN 7-10 Pregabalin 200 mg 02/12/20 11:10 02/12/20 15:23 Lyrica - PO 200 mg TID ABDON Administration ASSESSMENT/PLAN: 59-year-old female with a history of COPD, morbid obesity, functional paraplegia, chronic back pain, bipolar disorder, schizophrenia, ANH with inconsistent CPAP use, chronic lymphedema on Lasix, who presented with worsening lower extremity edema and lightheadedness and concern for CHF versus COPD exacerbation. #Severe lower extremity edema BNP is quite low albeit may be spuriously low in obese patients. Chest x-ray is of poor quality due to obesity. CT Chest w/o contrast ordered to further assess congestive changes. Dr. Cruz on board: May follow up as outpatient. No intervention at this time. Fluid and salt restriction - Echocardiogram--> Normal LVEF. Likely Diastolic CHF. As per Cardiology, Lasix may not be as effective when Albumin low. Recommends Bumex 1 tab Daily. May also be contributing to her edema #Unable to move left lower extremity Sensation is intact. Unclear on what her neurologic history is relating to h er inability to ambulate at baseline. Obtain medical records from [facility] Vascular on board--> Cont compression for lymphedema. Has pump at home for lymphadema. F/u Vascular clinic. #ANH/obesity hypoventilation syndrome Patient refusing CPAP machine #Psychiatric history Continue Lamictal and Abilify #FEN -No Fluids -Monitor electrolytes -Sodium Controlled Diet #DVT ppx: -Lovenox 40 SQ Daily #Dispo -Likely D/C tomorrow. Visit type - Emergency Visit Emergency Visit: Yes ED Registration Date: 02/10/20 Care time: The patient presented to the Emergency Department on the above date and was hospitalized for further evaluation of their emergent condition. - New Patient This patient is new to me today: No - Critical Care Critical Care patient: No - Discharge Referral Referred to [facility] Med P.C.: No ATTENDING PHYSICIAN STATEMENT I saw and evaluated the patient. I reviewed the resident's note and discussed the case with the resident. I agree with the resident's findings and plan as documented. SUBJECTIVE: OBJECTIVE: ASSESSMENT AND PLAN:
[2020-02-12] MEDS ORDERED: MONTELUKAST NA 10 MG TABLET PO SCH (22:00)
[2020-02-12] MEDS ORDERED: ACETAMINOPHEN 500 MG TABLET (FP) PO PRN (22:05)
[2020-02-12] MEDS ORDERED: MULTIVITAMINS (DAILY MVI) TABLET (FP) PO SCH (22:37)
[2020-02-12] MEDS ORDERED: POLYETHYLENE GLYCOL 3350 119 GM BTL PO ONE (23:15)
[2020-02-13] MEDS: PREGABALIN 100 MG CAPSULE PO SCH ×2 (05:42→15:28)
[2020-02-13] MEDS: BUMETANIDE 1 MG TABLET PO SCH ×2 (05:42→15:28)
[2020-02-13 09:04] LABS: HEMATOCRIT 39.2 % (32.4-45.2); HEMOGLOBIN 13.1 GM/dL (10.7-15.3); MCH 32.8 pg (25.7-33.7); MCHC 33.5 g/dl (32.0-36.0); MEAN CELL VOLUME 97.9 fl (80-96); MEAN PLT VOLUME 8.3 fl (7.5-11.1); PLATELET COUNT 349 K/MM3 (134-434); WHITE BLOOD COUNT 5.4 K/mm3 (4.0-10.0)
[2020-02-13 09:26] LABS: BLOOD UREA NITROGEN 12.4 mg/dL (7-18); CALCIUM 8.8 mg/dL (8.5-10.1); CREATININE 0.5 mg/dL (0.55-1.3); MAGNESIUM 1.6 mg/dL (1.8-2.4); PHOSPHOROUS 2.9 mg/dL (2.5-4.9); POTASSIUM 3.6 mmol/L (3.5-5.1)
[2020-02-13] MEDS ORDERED: CALCIUM 500MG/VIT-D 200 UNITS COMBO TABLET (FP) PO SCH (10:00)
[2020-02-13] MEDS ORDERED: PT OWN MED DRAWER 7, Y5N ONE (11:45)
[2020-02-13] MEDS: ARIPiprazole 10 MG TABLET PO SCH (11:49)
[2020-02-13] MEDS: BUDESONIDE/FORMETEROL FUMARATE 160/4.5 mcg INHALER IH SCH (11:50)
[2020-02-13] MEDS: ENOXAPARIN NA (PORCINE) 40 MG/0.4 ML DISP.SYRIN SQ SCH (11:50)
[2020-02-13] MEDS: VITAMIN B COMPLEX W/C COMBO TABLET (FP) PO SCH (11:52)
--- NOTE | 2020-02-13 14:31 | PN ---
Teaching Attending Note Name of Resident: Arsenio Patiño ATTENDING PHYSICIAN STATEMENT I saw and evaluated the patient. I reviewed the resident's note and discussed the case with the resident. I agree with the resident's findings and plan as documented. SUBJECTIVE: Patient denies shortness of breath, chest pain. Will discharge home today on bu momo instead of lasix. Pt to f/u in lymphedema clinic OBJECTIVE Last Vital Signs Temp Pulse Resp BP Pulse Ox 98.3 F 63 20 140/75 95 02/12/20 06:00 02/12/20 06:00 02/12/20 06:00 02/12/20 06:00 02/12/20 12:05 PE: Per resident note Labs/Imaging: reviewed ASSESSMENT/PLAN 59-year-old female with a history of COPD, morbid obesity, functional paraplegia , chronic back pain, bipolar disorder, schizophrenia, ANH with inconsistent CPAP use, chronic lymphedema on Lasix, who presented with worsening lower extremity edema and lightheadedness and concern for CHF versus COPD exacerbation. Patient was hemodynamically stable on room air. Echocardiogram was unremarkable. Pain and swelling of left lower extremity is likely primarily due to lymphedema. Se en by Dr. Cruz who follows the patient for this condition as an outpatient, who stated can be treated as outpatient. Medically cleared for discharge. Patient will be switched from Lasix to Bumex to assist with diuresis.
--- NOTE | 2020-02-13 15:02 | DS ---
Physical Exam: SUBJECTIVE: Patient seen and examined OBJECTIVE: Vital Signs Period Temp Pulse Resp BP Sys/Hobson Pulse Ox Last 24 Hr 97.4 F-98.7 F 57-82 20-20 130-157/66-83 88-96 PHYSICAL EXAM GENERAL: The patient is awake, alert, and fully oriented, in no acute distress. HEAD: Normal with no signs of trauma. EYES: PERRL, extraocular movements intact, sclera anicteric, conjunctiva clear. ENT: Ears normal, nares patent, oropharynx clear without exudates, moist mucous membranes. NECK: Trachea midline, full range of motion, supple. LUNGS: Breath sounds equal, clear to auscultation bilaterally, no wheezes, no crackles, no accessory muscle use. HEART: Regular rate and rhythm, S1, S2 without murmur, rub or gallop. ABDOMEN: Soft, nontender, nondistended, normoactive bowel sounds, no guarding, no rebound, no hepatosplenomegaly, no masses. EXTREMITIES: 2+ pulses, warm, well-perfused, no edema. NEUROLOGICAL: Cranial nerves II through XII grossly intact. Normal speech, gait not observed. PSYCH: Normal mood, normal affect. SKIN: Warm, dry, normal turgor, no rashes or lesions noted. LABS Laboratory Results - last 24 hr 02/13/20 02/13/20 08:40 08:40 WBC 5.4 RBC 4.00 Hgb 13.1 Hct 39.2 MCV 97.9 H MCH 32.8 MCHC 33.5 RDW 15.0 Plt Count 349 MPV 8.3 Sodium 139 Potassium 3.6 Chloride 101 Carbon Dioxide 34 H Anion Gap 4 L BUN 12.4 Creatinine 0.5 L Est GFR (CKD-EPI)AfAm 124.52 Est GFR (CKD-EPI)NonAf 107.44 Random Glucose 123 H Calcium 8.8 Phosphorus 2.9 Magnesium 1.6 L HOSPITAL COURSE: Date of Admission:02/10/20 Date of Discharge: 02/13/20 Discharge Summary Problems reviewed: Yes Reason For Visit: CHRONIC PAIN SYNDROME,LIGHTHEADEDNESS Current Active Problems CHF, acute on chronic (Acute) COPD exacerbation (Acute) Asthma (Chronic) Decreased mobility and endurance (Chronic) Condition: Improved - Instructions Diet, Activity, Other Instructions: You presented to the hospital due to increasing lower extremity swelling and weakness. You heart was was found to be abnormally stiff causing a certain type of congestive heart failure (diastolic). Please continue to use your pump for the lymphadema as previously prescribed. We have started you on a new medication that may help with your swelling as well as your heart failure. Please take 1 tab Daily of this medication (Bumex). Please follow up in 1 week with your primary care doctor, Dr Sanford to have repeat blood work done to assess your kidney function and electrolyte levels as this medication may affect these. Please consume a DASH diet. Information on this has been provided for you in your discharge papers. This is a low sodium diet. Please continue all of your home medications as prescribed. Please make sure to stop taking Furosemide (water pill) as this was on your medication list. Please return to the emergency department immediately if you begin to experience worsening shortness of breath, chest pain, lightheadedness, nausea/vomiting, or any other abnormal symptoms. Referrals: Edy Sanford MD [Primary Care Provider] - 1 Week Disposition: VNS/HOME HEALTH CARE - Home Medications Comprehensive Discharge Medication List: Ambulatory Orders Albuterol Sulfate Inhaler - [Ventolin HFA Inhaler -] 2 inh PO Q4H PRN 01/12/14 Lamotrigine [Lamictal -] 200 mg PO DAILY 01/12/14 Montelukast Na [Singulair -] 10 mg PO HS 01/12/14 Omeprazole 20 mg PO DAILY 12/12/17 Vitamin E - 400 unit PO DAILY #30 capsule 01/07/19 Pregabalin [Lyrica -] 200 mg PO TID 07/09/19 Loratadine 10 mg PO DAILY 11/10/19 Zolpidem Tartrate [Ambien] 10 mg PO DAILY 11/10/19 Calcium Carbonate/Vitamin D3 [Calcium 600 + Vit D 400 Softgl] 1 each PO DAILY #30 capsule 12/08/19 Diclofenac Sodium [Voltaren] 2 gm TP TID PRN #3 tube 01/08/20 Vitamin B Complex [B Complex] 1 each PO DAILY #30 tablet 01/08/20 Baclofen 20 mg PO TID PRN #90 tablet 02/09/20 Oxycodone HCl/Acetaminophen [Endocet 10-325 mg Tablet] 1 each PO TID PRN #90 tablet MDD 3 02/09/20 Albuterol Sulfate Inhaler - [Ventolin HFA Inhaler -] 2 puff PO Q4H 02/11/20 Aripiprazole 1 tab PO BID 02/11/20 Calcium Carbonate/Vitamin D3 [Calcium 600-Vit D3 200 Tablet] 1 tab PO DAILY 02/11/20 Fluticasone Prop 0.05% Nasal [Flonase -] 1 puff IN DAILY 02/11/20 Mv-Min/Folic/Vit K/Lycop/Coq10 [Daily Multivitamin Capsule] 1 cap PO DAILY 02/11/20 hydrOXYzine PAMOATE [Vistaril -] 50 mg PO DAILY 02/11/20 Bumetanide 1 mg PO DAILY #30 tablet 02/13/20 Ergocalciferol (Vitamin D2) [Vitamin D2] 1 tab PO ASDIR 02/13/20 Ferrous Sulfate 1 tab PO DAILY 02/13/20 Fluticasone/Salmeterol [Advair 250-50 Diskus] 1 puff PO BID 02/13/20 - Discharge Referral Referred to [facility] No ATTENDING PHYSICIAN STATEMENT I saw and evaluated the patient. I reviewed the resident's note and discussed the case with the resident. I agree with the resident's findings and plan as documented. SUBJECTIVE: OBJECTIVE: ASSESSMENT AND PLAN:
[2020-02-13 15:10] VITALS: BP 142/70; PULSE 82; TEMP 99
== END 2020-02-13 16:37 | disposition home health service (06) | DRG 194 ==
LOC: JER 19:47 → JERBED 22:44 → J5S 02-11 03:34
PROVIDERS: ADMIT Hospitalist; ATTEND Internal Medicine
DX: I11.0 Hypertensive heart disease with heart failure (principal); I50.33 Acute on chronic diastolic (congestive) heart failure; F44.4 Conversion disorder with motor symptom or deficit; J44.1 Chronic obstructive pulmonary disease with (acute) exacerbation; F20.9 Schizophrenia, unspecified; E66.2 Morbid (severe) obesity with alveolar hypoventilation; Z68.45 Body mass index [BMI] 70 or greater, adult; F31.9 Bipolar disorder, unspecified; E78.5 Hyperlipidemia, unspecified; E11.9 Type 2 diabetes mellitus without complications; F17.210 Nicotine dependence, cigarettes, uncomplicated; G89.29 Other chronic pain; F41.9 Anxiety disorder, unspecified
CPT/HCPCS: 36415; 36600; 71045-TC-FY; 80048; 80053; 82550; 82553; 82803; 82962; 83036; 83735; 83880; 84100; 84443; 84484; 85025; 85027; 85610; 93005; 93010; 93306-TC; 93970-TC; 94660; 97162-GP; 99291; C9803; J0131; J0475; U0003

== ENCOUNTER 2020-02-15 11:20 | Emergency (ER) | payer OTHER ==
[2020-02-15 11:53] VITALS: TEMP 97.8; BMI 80.4
--- NOTE | 2020-02-15 12:06 | PDOC ---
Attending Attestation - Resident Resident Name: Vonda Kwon - ED Attending Attestation I have performed the following: I have examined & evaluated the patient, The case was reviewed & discussed with the resident, I agree w/resident's findings & plan, Exceptions are as noted - HPI HPI: 02/15/20 12:07 59y F hx of COPD, functional paraplegia (needs wheelchair for ambulation), chronic back pain, bipolar disorder, schizophrenia, sleep apnea, htn, hl, dm, lympedema, mobid obesity, degnerative arthritis presents to the ED for evaluation of persistent leg swelling. She was admitted recently for evaluation with leg swelling/pain, she had her meds changed, however she has gamaliel inconsitent with taking the medication but is frustrated the swelling hasnt improved. The pt does endorse increased tingling to her L leg and some weakness, but weakness seems at baseline (limited movement of L toe). pt also notes she takes her lyrica/gabapentin/smokes pot for her leg tingling. She has an EMG scheduled on 02/22 at [facility]. Pt also notes that she feels 'anxious' due to what is going on. denies any cp, sob, palitations, lightheadedness, n/v, fever/chills, cough, back pain/falls, dysuria. - Physicial Exam PE: 02/15/20 12:17 GENERAL: The patient is awake, somnolent but easily arousable, morbidly obese, in no acute distress HEAD: Normocephalic, atraumatic. EYES: extraocular movements intact, sclera anicteric, conjunctiva clear. ENT: Normal voice, Moist mucous membranes. NECK: Normal range of motion, supple LUNGS: scattered wheezing HEART: Regular rate and rhythm, normal S1 and S2 without murmur, rub or gallop. ABDOMEN: Soft, nontender, No guarding, no rebound. No CVA tenderness BACK: No focal midline tednerenss EXTREMITIES: lymphedema b/l, no calf tenderness NEUROLOGICAL: No facial assymetry, Normal speech, No movement in RLE, only movement of LLE is wiggling of 1st toe, slight sensation to R foot to light touch, no sensation to L foot. 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 vertigo - will give her some meclizine and reassess. Heart Score/ECG Review - ECG Impressions Comment:: 02/15/20 15:30 Twelve-lead EKG was performed and reviewed by me. There is normal sinus rhythm with a normal rate. rate of 70 The axis is normal. The intervals are normal. There is normal R wave progression There are no ST or T wave abnormalities. Impression: sinus arytthmia
--- OUTSIDE RECORDS SUMMARY | 2020-02-15 12:10 | XMS ---
:1960 Author Organization [facility] Care Team Providers Name Role Phone MAHIN LAWSON Unavailable Unavailable Hollis Flores Unavailable [phone] MICHELLE GAR Unavailable Unavailable ED STAFF PHYSICIAN, STAFF Unavailable Unavailable BYRON ODIN, ODIN Unavailable Unavailable SHEA BOLAÑOS Unavailable Unavailable [facility], [facility] Unavailable Unavailable Junior Spaulding DPM Unavailable Unavailable Mayank Spaulding DPM Unavailable Unavailable Mayank Spaulding DPM Unavailable Unavailable Byron MD Unavailable Unavailable Byron MD Unavailable Unavailable Rosalba-Pickett Unavailable [phone] Rosalba-Pickett Unavailable [phone] Veselinovic Unavailable [phone] Vesgisselleovic Unavailable [phone] Re-disclosure Warning The records that you are [...] is protected by Article 27-F of the [facility] Public Health law. If you continue you may haveaccess to information: Regarding HIV / AIDS; Provided by facilities licensed or operated by the [facility] Office of Mental Health; or Provided by the [facility] Office for People With Developmental Disabilities. If such information is present, then the following [facility] mandated warning applies: This information has [...] law may result in a fine or nursing home sentence or both. A general authorization for the release of medical or other information is NOT sufficient authorization for further disclosure. Encounters Encounter Providers Location Date Indications Data Source(s ) Outpatient Attender: [facility] 02/09/2020 [facility] ([facility] 05:03:23 PM [facility] EDT [facility]) Patient admitted. OutpatientOFFICE/OUTPATIENT Attender: [facility] 12/17/2019 [facility], [facility] 10:18:00 AM ([facility] 12/17/2019 Medical 10:18:00 AM [place]) EDT Outpatient Attender: [facility] 12/06/2019 [facility] 12:20:08 PM ([facility]) Patient admitted. OutpatientOFFICE/OUTPATIENT Attender: Mental 11/20/2019 [facility], [facility] 12:13:00 PM ([facility] 11/20/2019 Medical 12:13:00 PM Center) EDT Attender: Michelle Mental 09/10/2019 [facility] 12:46:00 PM ([facility] 09/10/2019 Medical 12:46:00 PM Center) [facility] 11:03:00 AM ([facility] 08/01/2019 Medical 11:03:00 AM Center) EDT Outpatient 07/31/2019 [facility] 12:57:[address] [facility] Outpatient Attender: Junior Kaufman 07/31/2019 [facility] Jasson 12:54:00 PM [facility] DPMAdmitter: [facility] DPMReferrer: Junior Spaulding DPM OutpatientOFFICE/OUTPATIENT Attender: Hollis [facility] 07/31/2019 NEXTGEN VISIT, [facility] 12:54:00 PM ([facility] 07/31/2019 Medical 12:54:00 PM Center) EDT Outpatient 07/31/2019 [facility] 12:00:[address] [facility] Outpatient Attender: [facility]9 07/25/2019 [facility] 06:47:49 AM ([facility]) Patient admitted. OutpatientOFFICE/OUTPATIENT Attender: Mental 06/04/2019 NEXTGEN VISIT, [facility] 01:56:00 PM ([facility] 06/04/2019 Medical 01:56:00 PM Center) EST Outpatient Attender: 05/08/2019 [facility] 07:54:00 AM [facility] MICKIEdmitter: [facility] Attender: Mental 05/08/2019 [facility] 07:54:00 AM ([facility] 05/08/2019 Medical 07:54:00 AM Center) [facility] 05/08/2019 [facility] 12:00:00 AM [facility] 02/12/2019 [place] 12:00:00 AM EDT OutpatientOFFICE/OUTPATIENT Attender: Mental 03/[facility] 01:41:00 PM ([facility] 03/24/2019 Medical 01:41:00 PM Center) EST (NBillable) [place] 03/20/2019 eCW3 Lab/Outreach/Nursing/Care Primary 12:00:00 AM ([facility] EST - [place] A28 03/20/2019 Health 12:00:00 AM Care) EST (NBillable) [place] 03/18/2019 eCW3 Lab/Outreach/Nursing/Care Primary 12:00:00 AM ([facility] EST - [place] A28 03/18/2019 Health 12:00:00 AM Care) EST Emergency Attender: SHEA EVANGELISTA 03/14/2019 [facility] SANCHEZ 02:47:00 PM Patria Ocampoender: EST - Medical STAFF ED STAFF 03/15/2019 Center PHYSICIANAdmitt 01:23:00 PM er: STAFF ED EST STAFF PHYSICIAN Patient discharged. Outpatient [facility] 03/10/2019 eCW3 ([facility] A28 12:00:00 AM EST - [facility] 03/10/2019 Care) 12:00:00 AM EST (NBillable) [facility] 03/10/2019 eCW3 ([place] Lab/Outreach/Nursi Care Clinic A28 12:00:00 AM [facility] [place] [facility] ng/Care Management 03/10/2019 Care) 12:00:00 AM EST (NBillable) [facility] 02/20/2019 eCW3 ([place] [facility]reach[facility]i [facility] A28 12:00:00 AM EDT - [facility] ng/Care Management 02/20/2019 Care) 12:00:00 AM EDT Attender: [facility] 02/17/2019 JAQUELIN EN ([facility] 03:36:00 PM EDT - [facility] 02/17/2019 Medical 03:36:00 PM EDT Center) Inpatient Attender: MAHIN EVANGELISTA 02/11/2019 [facility] Kayleen ALMODOVAR 01:04:00 PM EDT - Medical Center ROBERTAdmitter: 02/12/2019 MAHIN ALMODOVAR 02:30:00 AM EDT ROBERTReferrer: MAHIN ALMODOVAR MAHIN Patient discharged. (NBillable) [place] 02/10/2019 eCW3 Lab/Outreach/Nursing/Care Primary Care 12:00:00 AM ([facility] A28 EDT - [place] 02/10/2019 Health 12:00:00 AM Care) EDT (NBillable) [place] 01/27/2019 eCW3 Lab/Outreach/Nursing/Care Primary Care 12:00:00 AM ([facility] A28 EDT - [place] 01/27/2019 Health 12:00:00 AM Care) EDT OutpatientOFFICE/OUTPATIENT Attender: Odin Mental [facility]/20/[facility] 10:12:00 AM [facility] 01/20/2019 Medical 10:12:00 AM Center) EDT (NBillable) [place] 01/14/2019 eCW3 Lab/Outreach/Nursing/Care Primary Care 12:00:00 AM ([facility] A28 EDT - [place] 01/14/2019 Health 12:00:00 AM Care) EDT Outpatient [place] 12/26/2018 eCW3 Primary Care 12:00:00 AM ([facility] A28 EDT - [place] 12/26/2018 Health 12:00:00 AM Care) EDT (NBillable) [place] 12/24/2018 eCW3 Lab/Outreach/Nursing/Care Primary Care 12:00:00 AM ([facility] A28 EDT - [place] 12/24/2018 Health 12:00:00 AM Care) EDT (NBillable) [place] 12/19/2018 eCW3 Lab/Outreach/Nursing/Care Primary Care 12:00:00 AM ([facility] A28 EDT - [place] 12/19/2018 Health 12:00:00 AM Care) EDT Outpatient Attender: ODIN H 06/21/2018 [facility] MATTHEWS 10:05:00 AM Patria Vásquez: DEBRA [facility] BERTHA YUSUFdmitter: ODIN SHELTONAB Immunizations Vaccine Date Status Description Data Source(s) New in 2011. IIV4 02/02/2020 03:55:00 completed eC W3 ([place] [facility] ED Health Care) New in 2011. IIV4 02/02/2020 03:55:00 completed eC W3 ([place] [facility] EDT Health Care) New in 2011. IIV4 02/02/2020 03:55:00 completed eC W3 ([place] [facility] ED Health Care) Medications Medication Brand Start Product Dose Route Administrative Pharmacy [facility] Indications Reaction Description Data Name Date Form Instructions Instructions Source(s) MAGIC UNK 12/28/ active MAGIC eCW3 MOUTHWASH 2019 MOUTHWASH ([place] (40 ML 12:00: (40 ML [place] VISCOUS 00 AM [facility] Health LIDOCAINE, EDT LIDOCAINE, Car e) 40ML [...] 40 ML BENADRYL ML BENADRYL ELIXIR) ELIXIR) aripiprazol Abilif 12/17/ active aripipr azole NEXTGEN e 10 MG y 2019 10 MG Oral ([facility] Oral Tablet mg 12:00: Tablet Faheem phs [Abilify] tablet 00 AM [Abilify] Me dical Abilify 10 EDT Center) mg tablet lamotrigine Lamict ORAL active lamotri gine NEXTGEN 200 MG Oral al 200 2019 {tabl 200 MG Ora l (Saint Tablet mg 12:00: et} Tablet Patria [Lamictal] tablet 00 AM [Lamictal] Medical Lamictal EDT Center) 200 mg tablet Hydroxyzine Vistar ORAL active hydroxy zine NEXTGEN Pamoate 50 il 50 2019 {caps pamoate 50 ( [facility] MG Oral mg 12:00: ule} MG Oral [place] Capsule capsul 00 AM Capsule Medica l [Vistaril] e EDT [Vistaril] [place] [facility]) Vistaril 50 mg capsule 200 ACTUAT Ventol .0 active Ventolin HFA [...] Powder Inhaler [Advair] Advair Diskus 500-50 MCG/DOSE aripiprazol Abilif ORAL complet aripip razole NEXTGEN e 10 MG y 2019 {tabl ed 10 MG Oral (Lety t Oral Tablet mg 12:00: et} Tablet Faheem phs [Abilify] tablet 00 AM [Abilify] Hi dical Abilify 10 EDT Center) mg tablet lamotrigine [place] ORAL complet lamotr igine NEXTGEN 200 MG Oral al 200 2019 {tabl ed 200 MG Ora l (Saint Tablet mg 12:00: et} Tablet [place] [Lamictal] tablet 00 AM [Lamictal] [facility] Lamictal EDT Center) 200 mg tablet Hydroxyzine Vistar ORAL complet hydrox yzine NEXTGEN Pamoate 50 il 50 2019 {caps ed pamoate 50 ( [facility] MG Oral mg 12:00: ule} MG Oral [place] Capsule capsul 00 AM Capsule Medica l [Vistaril] e EDT [Vistaril] [place] [facility]) Vistaril 50 mg capsule Mupirocin Mupiro .0 active Mupirocin 2 eCW3 [...] Dressing - Dressi 2020 Dressing - ( [place] ng - 12:00: [place] 00 AM Health EDT Care) Foam Foam 09/17/ active Foam eCW3 Dressing - Dressi 2020 Dressing - ( [place] ng - 12:00: [place] 00 AM [facility] EDT Care) lamotrigine [place]ict ORAL complet lamotr igine NEXTGEN 200 MG Oral al 200 2019 {tbl} ed 200 MG Ora l (Saint Tablet mg 12:00: Tablet Ptaria [Lamictal] tablet 00 AM [Lamictal] Medical Lamictal EDT Center) 200 mg tablet aripiprazol Abilif ORAL complet aripip razole NEXTGEN e 10 MG y 10 2019 {tbl} ed 10 MG Oral (Lety t Oral Tablet mg 12:00: Tablet Faheem phs [Abilify] tablet 00 AM [Abilify] Hi dical Abilify 10 EDT Center) mg tablet Hydroxyzine Vistar ORAL complet Hydrox yzine NEXTGEN Pamoate 50 il 50 2019 {caps ed Pamoate 50 ( [facility] MG Oral mg 12:00: ule} MG Oral [place] Capsule capsul 00 AM Capsule Medica l [Vistaril] e EDT [Vistaril] [place] [facility]) Vistaril 50 mg capsule Ibuprofen Ibupro 08/13/ active Ibuprofen eCW3 400 [...] Medical Lamictal EDT Center) 200 mg tablet Underpads - Underp 06/09/ active [...] 12:00: [place] 00 AM Health EST Care) lamotrigine [place] ORAL complet lamotr igine NEXTGEN 200 MG Oral al 200 2019 {tbl} ed 200 MG Ora l (Saint Tablet mg 12:00: Tablet Patria [Lamictal] tablet 00 AM [Lamictal] Medical Lamictal EST Center) 200 mg tablet Hydroxyzine Vistar ORAL complet Hydrox [...] Faheem phs [Abilify] tablet 00 AM [Abilify] [facility] 10 EST Center) mg tablet Hydroxyzine Vistar ORAL complet Hydrox yzine NEXTGEN Pamoate 50 2018 {caps ed Pamoate 50 ( [...] Faheem phs [Abilify] tablet 00 AM [Abilify] [place] [address] EST Center) mg tablet lamotrigine Lamict ORAL complet lamotr igine NEXTGEN 200 MG Oral al 200 2018 {tbl} ed 200 MG Ora l (Saint Tablet mg 12:00: Tablet Patria [Lamictal] tablet 00 AM [Lamictal] [facility]) 200 mg tablet lamotrigine [place] ORAL complet lamotr igine NEXTGEN 200 MG Oral al 200 2018 {tbl} ed 200 MG Ora l (Saint Tablet mg 12:00: Tablet [place]ria [Lamictal] tablet 00 AM [Lamictoh] [facility] EDT Center) 200 mg tablet aripiprazol lif ORAL complet aripip razole NEXTGEN e 10 MG y 2018 {tbl} ed 10 MG Oral (Lety t Oral Tablet mg 12:00: Tablet Faheem phs [Abilify] tablet 00 AM [Abilify] [facility] 10 EDT Center) mg tablet Hydroxyzine Vistar ORAL complet Hydrox yzine NEXTGEN Pamoate 50 il 50 2018 {caps ed Pamoate 50 ( Saint MG Oral mg 12:00: ule} MG Oral [place] Capsule capsul 00 AM Capsule Medica l [Vistaril] e EDT [Vistaril] [place] [facility]) Vistaril 50 mg capsule Zinc Oxide Zinc 01/03/ active Zinc Oxide [...] Health Zinc Oxide EDT Care) 20 % Hydroxyzine Vistar ORAL complet Hydrox yzine NEXTGEN [...] Faheem phs [Abilify] tablet 00 AM [Abilify] Hi dical Abilify 10 EDT Center) mg tablet Insurance Providers Payer name Policy type Policy ID Covered Covered constitution party's Policy P ana m / Coverage constitution party ID relationship to [place]izar[place] Inf ormation type pizarro MVP [place] [id number] [place] [id number] HMO MVP/HHP [id number] self [id number] MVP/HHP O [id number] 01 [id number] 600 MVP PSYCH OP O [id number] 01 [id number] [place] [id number] self [id number] HEALTH OPTION [place] O [id number] 01 [id number] 600 HEALTH OPTION [place] [id number] self [id number] HEALTH OPTIONS MVP/HHP O [id number] 01 [id number] 600 W [id number] [place] O [id number] 01 [id number] 600 HEALTH ACUTE W [id number] 01 [id number] O [id number] 01 [id number] 600 MEDICAID [id number] MVP HEALTH [id number] 1 [id number] PLANS MVP [place] [id number] [place] [id number] O Problems, Conditions, and Diagnoses Code Display Name Description Problem Type Effective Data Dates Source(s) K14.6 Tongue pain Tongue pain Problem 12/29/2019 eCW3 ([place] 12:00:00 AM [facility] EDT Care) L89.90 Pressure ulcer of Bed sore Problem 09/18/2019 eCW3 ([place] unspecified site, 12:00:00 AM [facility] unspecified stage EDT Care) E78.5 Hyperlipidemia Hyperlipidemia, Problem 09/18/2019 eCW3 ([place] unspecified 12:00:00 AM [facility] EDT Care) E78.5 Hyperlipidemia Hyperlipidemia, Problem 09/18/2019 eCW3 ([place] unspecified 12:00:00 AM [facility] EDT Care) L89.90 Pressure ulcer of Bed sore Problem 09/18/2019 eCW3 ([place] unspecified site, 12:00:00 AM [facility] unspecified stage EDT Care) E11.42 Diabetic Diabetic Problem 08/18/2019 eCW3 ([place] polyneuropathy polyneuropathy 12:00:00 AM [facility] EDT Care) E11.42 Diabetic Diabetic Problem 08/18/2019 eCW3 ([place] polyneuropathy polyneuropathy 12:00:00 AM [facility] EDT Care) E11.42 Diabetic Diabetic Problem 08/18/2019 eCW3 ([place] polyneuropathy polyneuropathy 12:00:00 AM [facility] EDT Care) E11.21 Type 2 diabetes Type 2 diabetes Problem 05/15/2019 eCW3 ([place] mellitus with mellitus with 12:00:00 AM [facility] diabetic diabetic EST Care) nephropathy, nephropathy, unspecified whether unspecified whether mcfp insulin mcfp insulin use use E11.21 Type 2 diabetes Type 2 diabetes Problem 05/15/2019 eCW3 ([place] mellitus with mellitus with 12:00:00 AM [facility] diabetic diabetic EST Care) nephropathy, nephropathy, unspecified whether unspecified whether terminologist insulin mcfp insulin use use E11.21 Type 2 diabetes Type 2 diabetes Problem 05/15/2019 eCW3 ([place] mellitus with mellitus with 12:00:00 AM [facility] diabetic diabetic EST Care) nephropathy, nephropathy, unspecified whether unspecified whether mcfp insulin mcfp insulin use use E11.42 Type 2 diabetes Type 2 diabetes Problem 04/08/2019 eCW3 ([place] mellitus with mellitus with 12:00:00 AM [facility] diabetic diabetic EST Care) polyneuropathy, polyneuropathy, unspecified whether unspecified whether terminologist insulin mcfp insulin use use G95.9 Myelopathy Myelopathy Problem 03/10/2019 eCW3 ([place] 12:00:00 AM [facility] EST Care) G95.9 Myelopathy Myelopathy Problem 03/10/2019 eCW3 ([place] 12:00:00 AM [facility] EST Care) G95.9 Myelopathy Myelopathy Problem 03/10/2019 eCW3 ([place] 12:00:00 AM [facility] EST Care) G95.9 Myelopathy Myelopathy Problem 03/10/2019 eCW3 ([place] 12:00:00 AM [facility] EST Care) E11.40 Diabetes mellitus Diabetes mellitus Problem 01/01/2019 eCW3 ([place] with neuropathy with neuropathy 12:00:00 AM [facility] Health EDT Care) E11.40 Diabetes mellitus Diabetes mellitus Problem 01/01/2019 eCW3 ([place] with neuropathy with neuropathy 12:00:00 AM [facility] Health EDT Care) E11.40 Diabetes mellitus Diabetes mellitus Problem 01/01/2019 eCW3 ([place] with neuropathy with neuropathy 12:00:00 AM [facility] Health EDT Care) E66.01 Morbid (severe) Morbid (severe) Problem 12/26/2018 eCW3 ([place] obesity due to obesity due to 12:00:00 AM [facility] excess calories excess calories EDT Care ) 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 020 [place] limb affecting LIMB AFFECTING 12:54:00 PM Medic al right dominant side RIGHT DOMINANT SIDE EDT Center M25.371 Other instability, OTHER INSTABILITY, Diagnosis 0 [place] right ankle RIGHT ANKLE 12:54:00 PM Medical EDT Center F25.0 Schizoaffective SCHIZOAFFECTIVE Diagnosis 05/08/2019 [place] disorder, bipolar DISORDER, BIPOLAR 07:54:00 AM Medical type TYPE EST Center E11.9 Type 2 diabetes TYPE 2 DIABETES Diagnosis 03/14/2019 [place] mellitus without MELLITUS WITHOUT 02:47:00 PM M edical complications COMPLICATIONS EST Center K21.9 Gastro-esophageal GASTRO-ESOPHAGEAL Diagnosis 03/14/2019 [place] reflux disease REFLUX DISEASE 02:47:00 PM Medic al without esophagitis WITHOUT ESOPHAGITIS EST Center J44.9 Chronic obstructive CHRONIC OBSTRUCTIVE Diagnosis [place] pulmonary disease, PULMONARY DISEASE, 02:47:00 PM Medical unspecified UNSPECIFIED EST Center J45.909 Unspecified asthma, UNSPECIFIED ASTHMA, Diagnosis [place] uncomplicated UNCOMPLICATED 02:47:00 PM Medical EST Center Y92.[address] Diagnosis 03/14/2019 [place] or not applicable OR NOT APPLICABLE 02:47:00 PM Medical EST Center K31.84 Gastroparesis GASTROPARESIS Diagnosis 03/14/2019 [place] sephrodri 02:47:00 PM Medical EST Center F60.0 Paranoid PARANOID Diagnosis 03/14/2019 [place] personality PERSONALITY 02:47:00 PM Medical disorder DISORDER EST Center T50.901A Poisoning by POISONING BY UNSP Diagnosis 03/14/2019 [place] unspecified drugs, DRUG/MEDS/BIOL 02:47:00 PM M edical medicaments and SUBST, ACCIDENTAL, EST C enter biological INIT substances, accidental (unintentional), initial encounter F17.210 Nicotine NICOTINE Diagnosis 02/12/2019 [place] dependence, DEPENDENCE, 02:30:00 AM Medical cigarettes, CIGARETTES, EDT Center uncomplicated UNCOMPLICATED E66.01 Morbid (severe) MORBID (SEVERE) Diagnosis 02/12/2019 [place] obesity due to OBESITY DUE TO 02:30:00 AM Medic al excess calories EXCESS CALORIES EDT [facility] er M48.061 Spinal stenosis, SPINAL STENOSIS, Diagnosis 02/12/2019 Sa horton Patria lumbar region LUMBAR REGION 02:30:00 AM Medical without neurogenic WITHOUT NEUROGENIC EDT Center claudication WISAM F31.9 Bipolar disorder, BIPOLAR DISORDER, Diagnosis 02/12/2019 [facility] Prabhakars unspecified UNSPECIFIED 02:30:00 AM Medical EDT Center G47.33 Obstructive sleep OBSTRUCTIVE SLEEP Diagnosis 02/12/2019 Pat[place] apnea (adult) APNEA (ADULT) 02:30:00 AM Medical (pediatric) (PEDIATRIC) EDT Center F20.9 Schizophrenia, SCHIZOPHRENIA, Diagnosis 02/12/2019 [facility] Prabhakars unspecified UNSPECIFIED 02:30:00 AM Medical EDT Center Z68.44 Body mass index BODY MASS INDEX Diagnosis 02/12/2019 Lety hicks [place]ria (BMI) 60.0-69.9, (BMI) 60.0-69.9, 02:30:00 AM M edical adult ADULT EDT Center E11.43 Type 2 diabetes TYPE 2 DIABETES W Diagnosis 02/12/2019 Sa clifford [place] mellitus with DIABETIC AUTONOMIC 02:30:00 AM Hi dical diabetic autonomic (POLY)NEUROPATHY EDT Center (poly)neuropathy G82.20 Paraplegia, PARAPLEGIA, Diagnosis 02/12/2019 [facility] Prabhakar s unspecified UNSPECIFIED 02:30:00 AM Medical EDT Center 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 02/11/2019 Lety hicks [place] paralytic syndromes PARALYTIC SYNDROMES 01:04:0 0 PM Medical EDT Center 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, PARALYTIC SYNDROME, Diagnosis 019 [place] unspecified UNSPECIFIED 01:04:00 PM Medical EDT Center Surgeries/Procedures Procedure Description Date Indications Data Source(s) Psychotherapy (30 Mins) 12/17/2019 NEXT GEN ([facility] W/ E&M 12:00:00 AM EDT [facility] - 12/17/2019 Center) 12:00:00 AM EDT OFFICE/OUTPATIENT VISIT, 12/17/2019 NEX TGEN ([facility] EST 12:00:00 AM EDT [facility] - 12/17/2019 [place]) 12:00:00 AM EDT OFFICE/OUTPATIENT VISIT, 11/20/2019 NEX TGEN ([facility] EST 12:00:00 AM EDT [facility] - 11/20/2019 Center) 12:00:00 AM EDT OFFICE/OUTPATIENT VISIT, 07/31/2019 NEX TGEN ([facility] EST 12:00:00 AM EDT [facility] - 07/31/2019 Center) 12:00:00 AM EDT Psychotherapy (30 Mins) 06/04/2019 NEXT GEN ([facility] W/ E&M 12:00:00 AM EST [facility] - 06/04/2019 [place]) 12:00:00 AM EST OFFICE/OUTPATIENT VISIT, 06/04/2019 NEX TGEN ([facility] EST 12:00:00 AM EST [facility] - 06/04/2019 Center) 12:00:00 AM EST Psychotherapy (45 Mins) 03/24/2019 NEXT GEN ([facility] W/ E&M 12:00:00 AM EST [facility] - 03/24/2019 Center) 12:00:00 AM EST OFFICE/OUTPATIENT VISIT, 03/24/2019 NEX TGEN ([facility] EST 12:00:00 AM EST [facility] - 03/24/2019 [place]) 12:00:00 AM EST OFFICE/OUTPATIENT VISIT, 01/20/2019 NEX TGEN ([facility] EST 12:00:00 AM EDT [facility] - 01/20/2019 Center) 12:00:00 AM EDT Results ID Date Data Source [id number] 02/11/2020 01:45:00 AM EDT [facility] Name Value Range Interpretation Description Data Sup porting Code Source(s) Document(s ) SARS [facility] coronavirus 2 RNA This lab was ordered by [facility] and reported by [facility]. ID Date Data Source [id number] 12/08/2019 12:00:00 AM EDT [facility] Name Value Range Interpretation Code Description Data Sully rce(s) Supporting Document(s ) 2019-nCoV [facility] RNA XXX PATRICK+probe- Imp This lab was ordered by TEJADAJEANMARIE GOODRICH 2 and reported by [facility]. ID Date Data Source [id number] 03/15/2019 06:00:00 AM EST [facility] Name Value Range Interpretation Description Data Sup porting Code Source(s) Document(s ) Cholesterol -<200 <content Saint [Mass/volume] in styleCode="Fred [facility] Serum or Plasma d">Cholesterol Medical </content>155 Center MG/DL<content styleCode="Abi lics"> (-<200 MG/DL)</conten t> Triglyceride < 150 <content Saint [Mass/volume] in styleCode="[facility] Serum or Plasma d">Triglycerid [facility] es Center </content>58 MG/DL<content styleCode="Abi lics"> (< 150 MG/DL)</conten t> UNK > 60 Below low normal <content Saint styleCode="[facility] d">HDL- Medical Cholesterol Center </content>54 MG/DL L<content styleCode="Abi lics"> (> 60 MG/DL)</conten t> UNK < 100 <content Saint styleCode="[facility] d">LDL-Cholest [facility] chanel Center </content>89 MG/DL<content styleCode="Abi lics"> (< 100 MG/DL)</conten t> ID Date Data Source HematologyRou.[id number] 03/15/2019 06:00:00 AM EST Jose Eduardo [facility] 0500 Name Value Range Interpretation Description Data [...] mean 80.0-100 <content Saint corpuscular .0 styleCode="Bold [facility] volume [Entitic ">Mean Medical volume] by Corpuscular [...] (0.0 KCUMM)</content > ID Date Data Source GFR(Creatinine).[id number] 03/15/2019 06:00:00 AM [facility] 0-0500 Name Value Range Interpretation Code Description Data Sully rce(s) Supporting Document(s ) UNK > 60 <content [facility] styleCode="Bold"> Medical Cent er EGFR </content>164 GFR<content styleCode="Italic s"> (> 60 GFR)</content> ID Date Data Source Coagulation 03/15/2019 06:00:00 AM [facility] ical Center Rout.[id number] EST Name Value Range Interpretation Description Data Sup porting Code Source(s) Document(s ) UNK 9.0-13.0 Above high normal <content styleCode="Bold" Pat[facility] >[facility] </content>13.2 Center SEC [...] cs"> (25.1-36.5 SEC)</content> ID Date Data Source CHMROUTINECCDA.[id number] 03/15/2019 06:00:00 AM EST [facility] -0500 Name Value Range Interpretation Description Data Sup porting Code Source(s) Document(s ) Magnesium 1.6-2.3 Below low normal <content Saint [Mass/volume] styleCode="Fred Prabhakars in Serum or d">Magnesium Medical Plasma </content>1.5 Center MG/DL L<content styleCode="Abi lics"> (1.6-2.3 MG/DL)</conten t> UNK 4.2-5.8 Above high normal <content Saint styleCode="Fred Prabhakars d">Hemoglobin Medical A1C Center </content>6.1 % H<content styleCode="Abi lics"> (4.2-5.8 %)</content> ID Date Data Source [facility].[id number] 03/15/2019 06:00:00 AM DEBRA [facility] Name Value Range Interpretation Description Data Sup porting Code Source(s) Document(s ) Chloride 98-107 <content Saint [Moles/volume] styleCode="Fred Prabhakars in Serum or d">Chloride Medical Plasma </content>106 [...] (> 60 GFR)</content> ID Date Data Source CardiacMarkers.[id number] 03/14/2019 06:29:00 PM EST Jose Eduardo [facility] -0500 Name Value Range Interpretation Description Data Sup porting Code Source(s) Document(s ) Troponin < 0.034 <content Saint I.cardiac styleCode="Bold Patria [Mass/volume ">Troponin I Medical ] in Serum </content>< Center or Plasma 0.012 NG/ML<content styleCode="Ital ics"> (< 0.034 NG/ML)</content > ID Date Data Source BMP.[id number] 03/14/2019 05:09:00 PM EST [facility] Name Value Range Interpretation Description Data Sup porting Code Source(s) Document(s ) Potassium 3.5-5.3 <content Saint [Moles/volume styleCode="Fred [place] ] in Serum or d">Potassium Medical Plasma </content>3.9 Center MEQ/L<content styleCode="Abi lics"> (3.5-5.3 MEQ/L)</conten t> ID Date Data Source Urinalysis.[id number] 03/14/2019 04:37:00 PM DEBRA [facility] 0 Name Value Range Interpretation Description [...] by Test d">Urine Medical strip Specific Center Bond </content><= 1.005 L<content styleCode="Abi lics"> (1.015-1.025 )</content> [...] Patria d">Urine pH Medical </content>7.0 Center <content styleCode="Abi [...] lics"> (NEGATIVE )</content> ID Date Data Source CHMROUTINECCDA.[id number] 03/14/2019 04:37:00 PM [facility] -0500 Name Value Range Interpretation Description Data Sup porting Code Source(s) Document(s ) Cannabinoids <content Saint [Presence] in styleCode="Fred Prabhakars Urine by Screen d">Cannabinoid Medical method >50 ng/mL s Center </content>PRES UMPTIVE POSITIVE NG/ML (Reference Range: not available)<br/ > ID Date Data Source Liver 03/14/2019 03:44:00 PM [facility] Profile.[id number] Name Value Range Interpretation Description Data Sup [...] s"> (0.0-0.3 MG/DL)</content> ID Date Data Source HematologyRou.[id number] 03/14/2019 03:44:00 PM EST Jose Eduardo nt [facility] 0500 Name Value Range Interpretation Description Data [...] (0.0 KCUMM)</content > ID Date Data Source GFR(Creatinine).[id number] 03/14/2019 03:44:00 PM EST Jose Eduardo [facility] 0-0500 Name Value Range Interpretation Code Description Data Sully rce(s) Supporting Document(s ) UNK > 60 <content [facility] styleCode="Bold"> Medical Cent er EGFR </content>175 GFR<content styleCode="Italic s"> (> 60 GFR)</content> ID Date Data Source BMP.[id number] 03/14/2019 03:44:00 PM EST [facility] Name Value Range Interpretation Description Data Sup porting Code Source(s) Document(s ) Sodium 137-145 <content Saint [Moles/volume] in styleCode="Bold"> Faheem phs Serum or Plasma Sodium Medical </content>142 Center MEQ/L<content styleCode="Italic s"> (137-145 MEQ/L)</content> Chloride 98-107 <content Saint [Moles/volume] in styleCode="Bold"> Faheem [facility] Serum or Plasma Chloride Medical </content>106 Center MEQ/L<content styleCode="Italic s"> (98-107 MEQ/L)</content> UNK 7-17 <content Saint styleCode="Bold"> Patria BUN </content>9 Medical MG/DL<content Center styleCode="Italic s"> (7-17 MG/DL)</content> Potassium <content Saint [Moles/volume] in styleCode="Bold"> Faheem [facility] Serum or Plasma Potassium Medical </content>Test Center [...] high <content Saint [Mass/volume] in normal styleCode="Bold"> Itno hs Serum or Plasma Glucose Medical </content>113 [...] IU/L)</content> Alkaline 38-126 <content Saint phosphatase styleCode="Bold"> [facility] [Enzymatic Alkaline Medical activity/volume] Phosphatase (ALP) Cente r in Serum or Plasma </content>89 IU/L<content styleCode="Italic s"> (38-126 IU/L)</content> Albumin 3.5-5.0 <content Saint [Mass/volume] in styleCode="Bold"> Tino hs Serum or Plasma Albumin Medical </content>4.3 Center G/DL<content styleCode="Italic s"> (3.5-5.0 G/DL)</content> ID Date Data Source LIPID.[id number] 02/11/2019 03:25:00 PM EDT [facility] Name Value Range Interpretation Description Data Sup porting Code Source(s) Document(s ) Triglyceride < 150 <content Saint [Mass/volume] in styleCode="Fred Patria Serum or Plasma d">Triglycerid Medical Center </content>75 MG/DL<content styleCode="Abi lics"> (< 150 MG/DL)</conten t> UNK > 60 Below low normal <content Saint styleCode="[facility] d">HDL- Medical Cholesterol Center </content>58 MG/DL L<content styleCode="Abi lics"> (> 60 MG/DL)</conten t> UNK < 100 <content Saint styleCode="[facility] d">LDL-Cholest Medical chanel Center </content>84 MG/DL<content styleCode="Abi lics"> (< 100 MG/DL)</conten t> Cholesterol -<200 <content Saint [Mass/volume] in styleCode="[facility] Serum or Plasma d">Cholesterol Medical </content>157 Center MG/DL<content styleCode="Abi lics"> (-<200 MG/DL)</conten t> ID Date Data Source HematologyRou.[id number] 02/11/2019 03:25:00 PM EDT Jose Eduardo [facility] 0400 Name Value Range Interpretation Description [...] Hematocrit 36.0-46. <content Saint [Volume 0 styleCode="Bold [facility] Fraction] of ">Hematocrit Medical Blood by </content>43.4 [...] ics"> (0 /100)</content> ID Date Data Source GFR(Creatinine).[id number] 02/11/2019 03:25:00 PM EDT [facility] 0-0400 Name Value Range Interpretation Code Description Data Sully rce(s) Supporting Document(s ) UNK > 60 <content [facility] styleCode="Bold"> Medical Cent er EGFR </content>164 GFR<content styleCode="Italic s"> (> 60 GFR)</content> ID Date Data Source Coagulation 02/11/2019 03:25:00 PM [facility] Rout.[id number] EDT Name Value Range Interpretation Description Data [...] cs"> (0.80-1.20 #)</content> ID Date Data Source CHMROUTINECCDA.[id number] 02/11/2019 03:25:00 PM EDT [facility] -0400 Name Value Range Interpretation Description Data Sup porting Code Source(s) Document(s ) Natriuretic < 125 Above high normal <content Saint peptide.B styleCode="Fred Patria prohormone d">NT Pro BNP Medical N-Terminal </content>209 Center [Mass/volume] PG/ML in Serum or H<content Plasma styleCode="Abi lics"> (< 125 PG/ML)</conten t> ID Date Data Source CardiacMarkers.[id number] 02/11/2019 03:25:00 PM [facility] Name Value Range Interpretation Description Data Sup porting Code Source(s) Document(s ) Troponin < 0.034 <content Saint I.cardiac styleCode="Bold Patria [Mass/volume ">Troponin I Medical ] in Serum </content>< Center or Plasma 0.012 NG/ML<content styleCode="Ital ics"> (< 0.034 NG/ML)</content > ID Date Data Source BMP.[id number] 02/11/2019 03:25:00 PM EDT [facility] Name Value Range Interpretation Description [...] t> Chloride 98-107 <content Saint [Moles/volume] styleCode="Fred Prabhakars in Serum or d">Chloride Medical Plasma </content>105 [...] (0.5-1.3 MG/DL)</conten t> ID Date Data Source Urinalysis.[id number] 02/11/2019 03:15:00 PM EDT Jose Eduardo nt [facility] 0 Name Value Range Interpretation Description Data Sup porting Code Source(s) Document(s ) UNK NEGATIVE <content Saint styleCode="[facility] d">Urine Medical Bilirubin Center </content>NEGA TIVE <content styleCode="Abi lics"> (NEGATIVE )</content> Color of Urine YELLOW <content Saint styleCode="Fred Patria d">Color, Medical Urine Center </content>YELL OW <content styleCode="Abi lics"> (YELLOW )</content> UNK CLEAR <content Saint styleCode="Fred Prabhakars d">Urine Medical Clarity Center </content>CELINE R <content styleCode="Abi lics"> (CLEAR )</content> Glucose NEGATIVE <content Saint [Mass/volume] styleCode="Fred [place] in Urine by d">Urine Medical Test strip Glucose Center </content>NEGA TIVE MG/DL<content styleCode="Abi lics"> (NEGATIVE MG/DL)</conten t> Specific 1.015-1.02 Below low normal <content Saint gravity of 5 styleCode="Fred Prabhakars Urine by Test d">Urine Medical strip Specific Center Bond </content>1.01 0 L<content styleCode="Abi lics"> (1.015-1.025 )</content> [...] Nitrite NEGATIVE <content Saint [Presence] in styleCode="Fred [place] Urine by Test d">Urine Medical strip Nitrite Center </content>NEGA TIVE <content styleCode="Abi lics"> (NEGATIVE )</content> Leukocyte NEGATIVE <content Saint esterase styleCode="Fred Prabhakars [Presence] in d">Urine Medical Urine by Test Leukocyte Center strip </content>NEGA TIVE <content styleCode="Abi lics"> (NEGATIVE )</content> Procedure Social History Code Duration Value Status Description Data Source(s ) Smoking 02/02/2020 Former Smoker completed Former Smoker eCW3 ([facility] 12:00:00 AM [facility]) Smoking 02/02/2020 Former Smoker completed Former Smoker eCW3 ([facility] 12:00:00 AM [facility]) Smoking 02/02/2020 Former Smoker completed Former Smoker eCW3 ([facility] 12:00:00 AM [facility]) Smoking 01/26/2020 Former Smoker completed Former Smoker eCW3 ([facility] 12:00:00 AM [facility]) Smoking 12/29/2019 Former Smoker completed Former Smoker eCW3 ([facility] 12:00:00 AM [facility]) Smoking 12/29/2019 Former Smoker completed Former Smoker eCW3 ([facility] 12:00:00 AM [facility]) Caffeine Use 12/17/2019 completed NEXTGEN (Jose Eduardo nt Details 12:00:00 AM EDT [facility]) Smoking 12/17/2019 Unknown if completed Unknown if ever NEXTGEN ( Saint 12:00:00 AM EDT ever smoked smoked [facility]) Smoking 12/01/2019 Former Smoker completed Former Smoker eCW3 ([facility] 12:00:00 AM [facility]) Smoking 12/01/2019 Former Smoker completed Former Smoker eCW3 ([facility] 12:00:00 AM [facility]) Smoking 12/01/2019 Former Smoker completed Former Smoker eCW3 ([facility] 12:00:00 AM [facility]) Caffeine Use 11/20/2019 completed NEXTGEN (Jose Eduardo nt Details 12:00:00 AM Health system) Smoking 11/17/2019 Former Smoker completed Former Smoker eCW3 ([facility] 12:00:00 AM [facility]) Smoking 11/13/2019 Former Smoker completed Former Smoker eCW3 ([facility] 12:00:00 AM [facility]) Smoking 10/31/2019 Former Smoker completed Former Smoker eCW3 ([facility] 12:00:00 AM [facility]) Smoking 10/01/2019 Former Smoker completed Former Smoker eCW3 ([facility] 12:00:00 AM [facility]) Smoking 10/01/2019 Former Smoker completed Former Smoker eCW3 ([facility] 12:00:00 AM [facility]) Smoking 10/01/2019 Former Smoker completed Former Smoker eCW3 ([facility] 12:00:00 AM [facility]) Smoking 08/16/2019 Former Smoker completed Former Smoker eCW3 ([facility] 12:00:00 AM [facility]) Smoking 08/16/2019 Former Smoker completed Former Smoker eCW3 ([facility] 12:00:00 AM [facility]) Smoking 08/16/2019 Former Smoker completed Former Smoker eCW3 ([facility] 12:00:00 AM [facility]) Smoking 08/16/2019 Former Smoker completed Former Smoker eCW3 ([facility] 12:00:00 AM [facility]) Smoking 05/15/2019 Former Smoker completed Former Smoker eCW3 ([facility] 12:00:00 AM [facility]) Smoking 03/28/2019 Former Smoker completed Former Smoker eCW3 ([facility] 12:00:00 AM [facility]) Smoking 03/15/2019 Daily Smoker completed Daily Smoker [facility] 12:10:00 AM EST Medical C enter Smoking 03/14/2019 Daily Smoker completed Daily Smoker [facility] 10:40:00 PM EST Medical C enter Smoking 03/14/2019 Daily Smoker completed Daily Smoker [facility] 05:32:00 PM EST Medical C enter Smoking 03/14/2019 Daily Smoker completed Daily Smoker [facility] May[facility] 03:49:00 PM EST Medical C enter Smoking [...] Former Smoker eCW3 ([facility] 12:00:00 AM [facility]) Smoking 01/15/2019 Former Smoker completed Former Smoker eCW3 ([facility] 12:00:00 AM [facility]) Smoking 01/15/2019 Former Smoker completed Former Smoker eCW3 ([facility] 12:00:00 AM [facility]) Vital Signs ID Date Data Source UNK Name Value Range Interpretation Code Description Data Source(s) Body temperature 37.822898 37.888038 [facility] Respiratory rate 18 /min 18 /min [facility] Heart rate 70 /min 70 /min [facility] Diastolic blood 89 mm[Hg] 89 mm[Hg] [facility] Systolic blood 150 mm[Hg] 150 mm[Hg] [facility] Body weight 159.257037 159.386298 kg [facility] Measured kg Medical Center Body height 170.625113 170.779965 cm [facility] Body mass index 54.90 kg/m2 54.90 [facility] Medical [facility] Diastolic blood 78 mm[Hg] 78 mm[Hg] [facility] Systolic blood 126 mm[Hg] 126 mm[Hg] [facility] Body temperature 36.343008 36.723547 [facility] Respiratory rate 20 /min 20 /min [facility] Heart rate 78 /min 78 /min [facility] Body weight 159.571582 159.371568 kg [facility] Measured kg Medical Center Body temperature 36.357121 36.954293 [facility] Respiratory rate 18 /min 18 /min [facility] Heart rate 77 /min 77 /min [facility] Diastolic blood 98 mm[Hg] 98 mm[Hg] [facility] pressure [facility] Center Systolic blood 140 mm[Hg] 140 mm[Hg] [facility] Body temperature 36.298921 36.276024 [facility] Respiratory rate 20 /min 20 /min [facility] Oxygen saturation 97 % 97 % [facility] blood [facility] by Pulse oximetry Heart rate 56 /min 56 /min [facility] Diastolic blood 72 mm[Hg] 72 mm[Hg] [facility] Center Systolic blood 120 mm[Hg] 120 mm[Hg] [facility] Diastolic blood 98 mm[Hg] 98 mm[Hg] [facility] Center Systolic blood 170 mm[Hg] 170 mm[Hg] [facility] Body temperature 36.049927 36.184316 [facility] Respiratory rate 22 /min 22 /min [facility] Oxygen saturation 97 % 97 % [facility] blood [facility] Center by Pulse oximetry Heart rate 58 /min 58 /min [facility] Oxygen saturation 97 % 97 % [facility] Arterial blood [facility] Center by Pulse oximetry Oxygen saturation 97 % 97 % [facility] in Arterial blood [facility] Center by Pulse oximetry Body weight 161.886559 161.388067 kg [facility] Measured kg Medical Center Oxygen saturation 97 % 97 % [facility] Arterial blood [facility] Center by Pulse oximetry Body height 167.374203 167.145520 cm [facility] Body mass index 57.6 kg/m2 57.6 kg/m2 [facility] (BMI) [Ratio] Medical [address] Diastolic blood 81 mm[Hg] 81 mm[Hg] eCW3 ([facility]) Systolic blood 150 mm[Hg] 150 mm[Hg] eCW3 ([facility]) Body temperature 98.1 [degF] 98.1 [degF] eCW3 ( [facility]) Heart rate 20 /min 20 /min eCW3 ([facility]) Body weight [lb_av] eCW3 ([facility]) Body height 62 [in_i] 62 [in_i] eCW3 ([facility]) Body temperature 36.215341 36.018267 [facility] Respiratory rate 20 /min 20 /min [facility] Oxygen saturation 94 % 94 % [facility] Arterial blood [facility] Center by Pulse oximetry Heart rate 71 /min 71 /min [facility] Diastolic blood 75 mm[Hg] 75 mm[Hg] [facility] Systolic blood 143 mm[Hg] 143 mm[Hg] [facility] Body weight 151.880239 151.481186 kg [facility] Measured kg [facility] Body height 157.612285 157.390071 cm [facility] Body mass index 61.27 kg/m2 61.27 kg/m2 [facility] (BMI) [Ratio] Medical [facility] Body weight 158.156703 158.315014 kg [facility] Measured kg [facility] Body temperature 37.275801 37.811450 [facility] Respiratory rate 18 /min 18 /min [facility] Heart rate 70 /min 70 /min [facility] Body height 160.611535 160.966302 cm [facility] Diastolic blood 71 mm[Hg] 71 mm[Hg] [facility] Center Systolic blood 151 mm[Hg] 151 mm[Hg] [facility] Body mass index 62.00 kg/m2 62.00 kg/m2 [facility]ph[facility] (BMI) [Ratio] Medical [facility] Body temperature 36.688732 36.606090 [facility] Respiratory rate 17 /min 17 /min [facility] Oxygen saturation 96 % 96 % [facility] in Arterial blood [facility] by Pulse oximetry Heart rate 86 /min 86 /min [facility] Diastolic blood 81 mm[Hg] 81 mm[Hg] [facility] Center Systolic blood 144 mm[Hg] 144 mm[Hg] [facility] Body temperature 36.648215 36.320868 [facility] Respiratory rate 20 /min 20 /min [facility] Oxygen saturation 97 % 97 % [facility] Rina joyce in [facility] blood [facility] Center by Pulse oximetry Heart rate 74 /min 74 /min [facility] Diastolic blood 84 mm[Hg] 84 mm[Hg] [facility] Systolic blood 148 mm[Hg] 148 mm[Hg] [facility] Diastolic blood 78 mm[Hg] 78 mm[Hg] eCW3 ([facility]) Systolic blood 154 mm[Hg] 154 mm[Hg] eCW3 ([facility]) Body temperature 98.2 [degF] 98.2 [degF] eCW3 ( [facility]) Heart rate 20 /min 20 /min eCW3 ([facility]) Body weight [lb_av] eCW3 ([facility]) Body height 62 [in_i] 62 [in_i] eCW3 ([facility]) Patient Treatment Plan of Care Planned Activity Planned Date Details Description Data Source (s) aripiprazole 10 MG Oral 12/18/2019 12:00:00 NEXTGEN (Saint Tablet [Abilify] AM [facility]) lamotrigine 200 MG Oral 12/18/2019 12:00:00 NEXTGEN (Saint Tablet [Lamictal] AM [facility]) Hydroxyzine Pamoate 50 MG 12/18/2019 12:00:00 NEXTGEN (Saint Oral Capsule [Vistaril] AM [facility]) 200 ACTUAT Albuterol 0.09 12/03/2019 12:00:00 eCW3 ([place] MG/ACTUAT Metered Dose [facility]) Inhaler [Ventolin] 200 ACTUAT Albuterol 0.09 12/03/2019 12:00:00 eCW3 ([place] MG/ACTUAT Metered Dose [facility]) Inhaler [Ventolin] 60 ACTUAT Fluticasone 12/01/2019 12:00:00 eCW3 ([place] propionate 0.5 MG/ACTUAT AM [facility]) / salmeterol 0.05 MG/ACTUAT Dry Powder Inhaler [Advair] 60 ACTUAT Fluticasone 12/01/2019 12:00:00 eCW3 ([place] propionate 0.5 MG/ACTUAT [facility]) / salmeterol 0.05 MG/ACTUAT Dry Powder Inhaler [Advair] aripiprazole 10 MG Oral 11/20/2019 12:00:00 NEXTGEN (Saint Tablet [Abilify] [facility]) lamotrigine 200 MG Oral 11/20/2019 12:00:00 NEXTGEN (Saint Tablet [Lamictal] [facility]) Hydroxyzine Pamoate 50 MG 11/20/2019 12:00:00 NEXTGEN (Saint Oral Capsule [Vistaril] [facility]) Foam Dressing - 09/18/2019 12:00:00 eCW3 ([facility]) Foam Dressing - 09/18/2019 12:00:00 eCW3 ([facility]) Foam Dressing - 09/18/2019 12:00:00 eCW3 ([facility]) Hydroxyzine Pamoate 50 MG 09/10/2019 12:00:00 NEXTGEN (Saint Oral Capsule [Vistaril] [facility]) lamotrigine 200 MG Oral 09/10/2019 12:00:00 NEXTGEN (Saint Tablet [Lamictal] [facility]) aripiprazole 10 MG Oral 09/10/2019 12:00:00 NEXTGEN (Saint Tablet [Abilify] [facility]) Ibuprofen 400 MG Oral 08/14/2019 12:00:00 eCW3 ([place] Tablet [facility]) Ibuprofen 400 MG Oral 08/14/2019 12:00:00 eCW3 ([place] Tablet [facility]) Ibuprofen 400 MG Oral 08/14/2019 12:00:00 eCW3 ([place] Tablet [facility]) Ibuprofen 400 MG Oral 08/14/2019 12:00:00 eCW3 ([place] Tablet [facility]) Hydroxyzine Pamoate 50 MG 08/01/2019 12:00:00 NEXTGEN (Saint Oral Capsule [Vistaril] [facility]) lamotrigine 200 MG Oral 08/01/2019 12:00:00 NEXTGEN (Saint Tablet [Lamictal] [facility]) aripiprazole 10 MG Oral 08/01/2019 12:00:00 NEXTGEN (Saint Tablet [Abilify] [facility]) Hydroxyzine Pamoate 50 MG 06/04/2019 12:00:00 NEXTGEN (Saint Oral Capsule [Vistaril] [facility]) lamotrigine 200 MG Oral 06/04/2019 12:00:00 NEXTGEN (Saint Tablet [Lamictal] [facility]) aripiprazole 10 MG Oral 06/04/2019 12:00:00 NEXTGEN (Saint Tablet [Abilify] [facility]) Hydroxyzine Pamoate 50 MG 03/24/2019 12:00:00 NEXTGEN (Saint Oral Capsule [Vistaril] [facility]) lamotrigine 200 MG Oral 03/24/2019 12:00:00 NEXTGEN (Saint Tablet [Lamictal] [facility]) aripiprazole 10 MG Oral 03/24/2019 12:00:00 NEXTGEN (Saint Tablet [Abilify] [facility]) aripiprazole 10 MG Oral 01/20/2019 12:00:00 NEXTGEN (Saint Tablet [Abilify] [facility]) Hydroxyzine Pamoate 50 MG 01/20/2019 12:00:00 NEXTGEN (Saint Oral Capsule [Vistaril] [facility]) lamotrigine 200 MG Oral 01/20/2019 12:00:00 NEXTGEN (Saint Tablet [Lamictal] [facility]) Zinc Oxide 0.2 MG/MG 01/03/2019 12:00:00 eCW3 ([place] Topical Ointment [facility] ) Hydroxyzine Pamoate 50 MG 12/03/2018 12:00:00 NEXTGEN (Saint Oral Capsule [Vistaril] AM [facility]) lamotrigine 200 MG Oral 12/03/2018 12:00:00 NEXTGEN ([facility] Tablet [Lamictal] [facility]) aripiprazole 10 MG Oral 12/03/2018 12:00:00 NEXTGEN ([facility] Tablet [Abilify] [facility])
--- NOTE | 2020-02-15 13:05 | PDOC ---
History of Present Illness - General Chief Complaint: Chronic pain Stated Complaint: LEG PAIN Time Seen by Provider: 02/15/20 11:55 - History of Present Illness Initial Comments: 02/15/20 13:05 HPI: 59 y/o F with hx of COPD (denies home O2 use), functional paraplegia (needs wheelchair for ambulation), chronic back pain on management, bipolar disorder, schizophrenia, sleep apnea (on CPAP-inconsistent use), HTN, HLD, DM, lymphedema (40 mg daily lasix; compliant), morbid obesity, and degenerative arthritis presenting with left lower leg edema and tingling. She was recently admitted for diastolic HF and DCd 2days ago on diuretics. She reports her symptoms are not acute or new but have just been persistent. She didnt take her diuretic dose yesterday because she was urinating too much. She denies fever, chills, chest pain, SOB, cough, abd pain, LIN. She also reports blurry vision with flashes and floaters; she saw an delphi developer recently and told her exam is normal PMHx: as noted above ROS: as noted SHx: + tobacco use; no alcohol use; +MJ rec drugs Allergies: NKDA ROS: GENERAL/CONSTITUTIONAL: No fever or chills. No weakness. HEAD, EYES, EARS, NOSE AND THROAT: No ear pain or discharge. No sore throat. CARDIOVASCULAR: No chest pain or shortness of breath RESPIRATORY: No cough, wheezing, or hemoptysis. GASTROINTESTINAL: No nausea, vomiting, diarrhea or constipation. GENITOURINARY: No dysuria, frequency, or change in urination. MUSCULOSKELETAL: No joint or muscle swelling or pain. No neck or back pain. SKIN: No rash NEUROLOGIC: No headache, loss of consciousness, or change in strength/sensation. ENDOCRINE: No increased thirst. No abnormal weight change HEMATOLOGIC/LYMPHATIC: No anemia, easy bleeding, or history of blood clots. ALLERGIC/IMMUNOLOGIC: No hives or skin allergy. PE: GENERAL: Awake, alert, and fully oriented, no acute distress, morbid obesity HEAD: No signs of trauma, normocephalic, atraumatic EYES: EOMI, sclera anicteric, conjunctiva clear ENT: Auricles normal inspection, hearing grossly normal, nares patent, oropharynx clear without exudates. Moist mucosa NECK: Normal ROM, no lymphadenopathy LUNGS: No increased work of breathing, symmetrical chest rise, clear to auscultation bilaterally, no wheezes, crackles or rhonchi HEART: Regular rate, regular rhythm, normal S1 and S2, no murmur, peripheral pulses 2+ and equal bilaterally. BL LE 1+edema ABDOMEN: obese, soft, nondistended, nontender. No guarding, no rebound. No masses. No CVAT MUSCULOSKELETAL: restricted LE ROM due to functional paraplegia; UE with FROM NEUROLOGICAL: Cranial nerves II through XII grossly intact. Normal speech, BL decreased sensation; RLE 0/5 str difficult to assess effort vs weakness; LLE 0/5 hip and knee but 2/5 ankle and able to move toes; FTN normal; negative disdadokinesia; vision 20/30 SKIN: Warm, Dry, normal turgor, no rashes or lesions noted Past History - Medical History Allergies/Adverse Reactions: Allergies Allergy/AdvReac Type Severity Reaction Status Date / Time No Known Allergies Allergy Verified 02/15/20 11:24 Home Medications: Ambulatory Orders Lamotrigine [Lamictal -] 200 mg PO DAILY 01/12/14 Montelukast Na [Singulair -] 10 mg PO HS 01/12/14 Omeprazole 20 mg PO DAILY 12/12/17 Vitamin E - 400 unit PO DAILY #30 capsule 01/07/19 Pregabalin [Lyrica -] 200 mg PO TID 07/09/19 Loratadine 10 mg PO DAILY 11/10/19 Zolpidem Tartrate [Ambien] 10 mg PO DAILY 11/10/19 Diclofenac Sodium [Voltaren] 2 gm TP TID PRN #3 tube 01/08/20 Vitamin B Complex [B Complex] 1 each PO DAILY #30 tablet 01/08/20 Baclofen 20 mg PO TID PRN #90 tablet 02/09/20 Oxycodone HCl/Acetaminophen [Endocet 10-325 mg Tablet] 1 each PO TID PRN #90 tablet MDD 3 02/09/20 Albuterol Sulfate Inhaler - [Ventolin HFA Inhaler -] 2 puff PO Q4H 02/11/20 Aripiprazole 1 tab PO BID 02/11/20 Calcium Carbonate/Vitamin D3 [Calcium 600-Vit D3 200 Tablet] 1 tab PO DAILY 02/11/20 Fluticasone Prop 0.05% Nasal [Flonase -] 1 puff IN DAILY 02/11/20 Mv-Min/Folic/Vit K/Lycop/Coq10 [Daily Multivitamin Capsule] 1 cap PO DAILY 02/11/20 hydrOXYzine PAMOATE [Vistaril -] 50 mg PO DAILY 02/11/20 Bumetanide 1 mg PO DAILY #30 tablet 02/13/20 Ergocalciferol (Vitamin D2) [Vitamin D2] 1 tab PO ASDIR 02/13/20 Ferrous Sulfate 1 tab PO DAILY 02/13/20 Fluticasone/Salmeterol [Advair 250-50 Diskus] 1 puff PO BID 02/13/20 Anemia: No Asthma: Yes Cancer: No Cardiac Disorders: No CVA: No COPD: Yes (Denies O2 use at home) CHF: No Dementia: No Diabetes: Yes (BORDERLINE) GI Disorders: Yes (GERD) Disorders: No HTN: Yes Hypercholesterolemia: Yes Liver Disease: No Seizures: No Thyroid Disease: No - Surgical History Abdominal Surgery: No Appendectomy: No Cardiac Surgery: No Cholecystectomy: Yes Lung Surgery: No Neurologic Surgery: No Orthopedic Surgery: Yes (left ankle surgery 2004 with johnny; left shoulder 2016) - Reproductive History Is Patient Now?: No - Immunization History Immunization Up to Date: No - Psycho-Social/Smoking History Smoking Status: Yes Smoking History: Current every day smoker Have you smoked in the past 12 months: Yes Number of Cigarettes Smoked Daily: 5 If you are a former smoker, when did you quit?: 6 months Information on smoking cessation initiated: Yes 'Breaking Loose' booklet given: 08/02/17 - Substance Abuse Hx (Audit-C & DAST Scrn) How often the patient has a drink containing alcohol: Monthly or less How often the patient has six or more drinks on one occasion: Less than monthly Score: In Men: 4 or > Positive; In Women: 3 or > Positive: 2 Screen Result (Pos requires Nsg. Audit-10AR): Negative In the last yr the pt used illegal drug/Rx for NonMed reason: Yes Score: Yes response is considered Positive: 1 Screen Result (Positive result requires Nsg. DAST-10): Positive *Physical Exam - Vital Signs Last Vital Signs Temp Pulse Resp BP Pulse Ox 97.8 F 68 20 111/54 L 93 L 02/15/20 11:20 02/15/20 11:20 02/15/20 11:20 02/15/20 11:20 02/15/20 11:20 ED Treatment Course - LABORATORY CBC & Chemistry Diagram: 02/15/20 12:10 02/15/20 12:10 Medical Decision Making - Medical Decision Making 02/15/20 15:52 59 y/o F with hx of COPD (denies home O2 use), functional paraplegia (needs wheelchair for ambulation), chronic back pain on management, bipolar disorder, schizophrenia, sleep apnea (on CPAP-inconsistent use), HTN, HLD, DM, lymphedema (40 mg daily lasix; compliant), morbid obesity, and degenerative arthritis presenting with left lower leg edema and tingling similar to her symptoms from DC. VSS, AF. PE as above -cbc, cmp, card prof, bnp, ekg, cxr -meclizine; patient refusing lasix -discussed at length with pt importance of taking daily diuretics and not skipping doses. 02/15/20 15:54 ekg nsr with no charis/d cxr similar from prior admission labs unremarkable will reassess but after legnthy discussion patient states wants to go home and will take meds 02/15/20 16:54 patient requesting to go home symtpoms improved Discharge - Discharge Information Problems reviewed: Yes Clinical Impression/Diagnosis: Leg edema, left, Tingling Condition: Stable Disposition: HOME - Follow up/Referral - Patient Discharge Instructions Patient Printed Discharge Instructions: DI for Heart Failure Exacerbations Additional Instructions: Additional Instructions: Please return to the emergency department with any new or worsening symptoms or concerns. Please follow up with your primary care physician within 72 hours. Please followup with your manager sap as soon as you can Please ensure medication compliance daily - Post Discharge Activity
[2020-02-15] MEDS ORDERED: ALPRAZolam 1 MG TABLET PO PRN (13:06)
[2020-02-15] MEDS ORDERED: ALPRAZolam 0.25 MG TABLET ONE (13:13)
[2020-02-15 13:18] LABS: EOS % 2.6 % (0-4.5); HEMATOCRIT 40.1 % (32.4-45.2); HEMOGLOBIN 13.4 GM/dL (10.7-15.3); MCH 32.8 pg (25.7-33.7); MCHC 33.5 g/dl (32.0-36.0); MEAN PLT VOLUME 8.2 fl (7.5-11.1); MONO % 9.4 % (3.8-10.2); PLATELET COUNT 376 K/MM3 (134-434); RBC 4.09 M/mm3 (3.60-5.2); RDW 15.2 % (11.6-15.6); WHITE BLOOD COUNT 5.7 K/mm3 (4.0-10.0)
[2020-02-15 13:48] LABS: ALBUMIN 3.6 g/dl (3.4-5.0); ALK PHOS 90 U/L (45-117); ANION GAP 3 MMOL/L (8-16); BILIRUBIN,TOTAL 0.3 mg/dL (0.2-1); BLOOD UREA NITROGEN 12.2 mg/dL (7-18); CALCIUM 9.1 mg/dL (8.5-10.1); CHLORIDE 107 mmol/L (98-107); CO2 32 mmol/L (21-32); CREATININE 0.5 mg/dL (0.55-1.3); GLUCOSE,RANDOM 102 mg/dL (74-106); N-TERMINAL BNP 289.5 pg/ml (5-125); POTASSIUM 4.3 mmol/L (3.5-5.1); SGOT/AST 24 U/L (15-37); SGPT/ALT 31 U/L (13-61); SODIUM 142 mmol/L (136-145); TOT PROT 7.7 g/dl (6.4-8.2)
[2020-02-15] MEDS ORDERED: MIDAZOLAM HCL 2 MG/2 ML SINGLE DOSE VIAL ONE (14:29)
[2020-02-15] MEDS ORDERED: MECLIZINE HCL 25 MG TABLET (FP) PO ONE (15:19)
[2020-02-15] MEDS ORDERED: MECLIZINE HCL 25 MG TABLET (FP) ONE (15:24)
[2020-02-15 17:51] VITALS: BP 152/78; PULSE 65
--- NOTE | 2020-02-15 21:43 | EKG ---
Test Reason : Blood Pressure : / mmHG Vent. Rate : 070 BPM Atrial Rate : 070 BPM P-R Int : 152 ms QRS Dur : 092 ms QT Int : 388 ms P-R-T Axes : 050 023 036 degrees QTc Int : 419 ms NORMAL SINUS RHYTHM WITH SINUS ARRHYTHMIA NORMAL ECG WHEN COMPARED WITH ECG OF 10-FEB-2020 22:00, NO SIGNIFICANT CHANGE WAS FOUND Confirmed by Mary Lou Nguyen ([id number]) on 02/15/2020 9:43:17 PM Referred By: Confirmed By:Mary Lou Nguyen
== END 2020-02-15 19:33 | disposition home or self-care (01) ==
LOC: JER 11:20
DX: R60.9 Edema, unspecified (principal)
CPT/HCPCS: 36415; 71045-TC-FY; 80053; 82550; 82553; 83880; 84484; 85025; 93005; 93010; 99285-25

== ENCOUNTER 2021-07-19 11:49 | Inpatient (IN) | payer OTHER ==
[2021-07-19 12:14] VITALS: BMI 73.1
[2021-07-19] MEDS ORDERED: FUROSEMIDE 40 MG/4 ML INJECTABLE VIAL IVPUSH ONE (14:13)
[2021-07-19] MEDS ORDERED: FUROSEMIDE 40 MG/4 ML INJECTABLE VIAL ONE (14:29)
[2021-07-19 14:37] LABS: BASO % 1.1 % (0-2.0); EOS % 2.3 % (0-4.5); HEMOGLOBIN 12.9 GM/dL (10.7-15.3); LYMPH % 42.8 % (8-40); MCH 31.4 pg (25.7-33.7); MCHC 32.3 g/dl (32.0-36.0); MEAN CELL VOLUME 97.2 fl (80-96); MEAN PLT VOLUME 7.8 fl (7.5-11.1); MONO % 7.1 % (3.8-10.2); NEUT % 46.7 % (42.8-82.8); PLATELET COUNT 422 10^3/uL (134-434); RBC 4.11 M/mm3 (3.60-5.2); RDW 15.6 % (11.6-15.6); WHITE BLOOD COUNT 5.1 K/mm3 (4.0-10.0)
[2021-07-19 14:58] LABS: ALBUMIN 3.6 g/dl (3.4-5.0); BLOOD UREA NITROGEN 9.9 mg/dL (7-18)
[2021-07-19 15:01] LABS: CREATININE 0.6 mg/dL (0.55-1.3)
[2021-07-19 15:02] LABS: BILIRUBIN,TOTAL 0.3 mg/dL (0.2-1); TOT PROT 7.8 g/dl (6.4-8.2)
[2021-07-19 15:06] LABS: N-TERMINAL BNP 673.8 pg/ml (5-125)
[2021-07-19 15:53] LABS: INR 1.13 (0.83-1.09)
[2021-07-19 15:56] LABS: ACTIVATED PTT 34.9 SECONDS (25.2-36.5)
[2021-07-19] MEDS ORDERED: ALBUTEROL SO4 HFA INHALER IH PRN (16:25)
[2021-07-19] MEDS ORDERED: ACETAMINOPHEN 1000 MG/100 ML BAG IVPB PRN (17:45)
[2021-07-19] MEDS: INSULIN SLIDING SCALE (NOVOLOG) 1 VIAL SQ SCH (21:47)
[2021-07-19] MEDS: MONTELUKAST NA 10 MG TABLET PO SCH (23:17)
[2021-07-19] MEDS: ENOXAPARIN NA (PORCINE) 40 MG/0.4 ML DISP.SYRIN SQ SCH (23:17)
[2021-07-20] MEDS: INSULIN SLIDING SCALE (NOVOLOG) 1 VIAL SQ SCH ×3 (06:02→17:39)
[2021-07-20 07:49] LABS: HEMATOCRIT 36.6 % (32.4-45.2); MCH 31.9 pg (25.7-33.7); MCHC 32.9 g/dl (32.0-36.0); MEAN CELL VOLUME 96.9 fl (80-96); MEAN PLT VOLUME 8.2 fl (7.5-11.1); PLATELET COUNT 368 10^3/uL (134-434); RBC 3.77 M/mm3 (3.60-5.2); WHITE BLOOD COUNT 4.2 K/mm3 (4.0-10.0)
[2021-07-20 08:34] LABS: MAGNESIUM 1.9 mg/dL (1.8-2.4)
[2021-07-20 08:38] LABS: PHOSPHOROUS 3.4 mg/dL (2.5-4.9)
[2021-07-20] MEDS ORDERED: FUROSEMIDE 40 MG/4 ML INJECTABLE VIAL IVPUSH SCH (10:00)
[2021-07-20] MEDS ORDERED: ARIPiprazole 10 MG TABLET PO SCH (10:00)
[2021-07-20] MEDS: ENOXAPARIN NA (PORCINE) 40 MG/0.4 ML DISP.SYRIN SQ SCH (10:19)
[2021-07-20] MEDS ORDERED: ARIPiprazole 5 MG TABLET PO SCH ×2 (10:51→11:00)
[2021-07-20] MEDS ORDERED: methylPREDNISolone NA SUCC 40 MG/1 ML VIAL IVPUSH SCH (12:00)
[2021-07-20] MEDS: methylPREDNISolone NA SUCC 40 MG/1 ML VIAL IVPUSH SCH ×2 (14:02→18:20)
[2021-07-20 15:32] LABS: VENOUS O2 SATURATION 94.8 % (70-80); VENOUS PCO2 60.7 mmHg (38-52)
[2021-07-20 15:33] LABS: VENOUS PH 7.359 (7.310-7.410)
[2021-07-20] MEDS: GABAPENTIN 400 MG CAPSULE PO SCH ×2 (18:19→22:04)
[2021-07-20] MEDS ORDERED: lamoTRIgine 100 MG TABLET PO SCH (22:00)
[2021-07-20] MEDS ORDERED: APIXABAN 5 MG TABLET PO SCH (22:00)
[2021-07-20] MEDS: MONTELUKAST NA 10 MG TABLET PO SCH (22:04)
[2021-07-20 22:10] VITALS: BP 159/78; PULSE 65; TEMP 98.6
[2021-07-21] MEDS ORDERED: AZITHROMYCIN IVPB 500 MG in DEXTROSE 5%-WATER - 250 ML IVPB SCH (10:00)
[2021-07-21] MEDS ORDERED: SILVER SULFADIAZINE 1% TOP CREAM 50 GM JAR TP SCH (10:00)
== END 2021-07-20 23:48 | disposition short-term general hospital (02) | DRG 133 ==
LOC: JER 11:49 → UNDOADMOB 14:38 → INTOOBSV 14:38 → JERBED 14:38 → J4W 22:11 → OBSVTOIN 07-20 13:34
PROVIDERS: ADMIT Internal Medicine; ATTEND Internal Medicine
DX: J96.01 Acute respiratory failure with hypoxia (principal); I11.0 Hypertensive heart disease with heart failure; I50.33 Acute on chronic diastolic (congestive) heart failure; G82.20 Paraplegia, unspecified; E66.01 Morbid (severe) obesity due to excess calories; Z68.45 Body mass index [BMI] 70 or greater, adult; G47.33 Obstructive sleep apnea (adult) (pediatric); E78.5 Hyperlipidemia, unspecified; E11.9 Type 2 diabetes mellitus without complications; J44.1 Chronic obstructive pulmonary disease with (acute) exacerbation; J45.901 Unspecified asthma with (acute) exacerbation; E87.70 Fluid overload, unspecified; F31.9 Bipolar disorder, unspecified; F20.9 Schizophrenia, unspecified; F17.210 Nicotine dependence, cigarettes, uncomplicated
CPT/HCPCS: 36415; 71045-TC-FY; 80053; 80061; 82803; 82962; 83036; 83735; 83880; 84100; 84132; 84439; 84443; 84484; 85025; 85027; 85379; 85610; 85730; 86140; 93005; 93010; 93306-TC; 93970-TC; 99291; C9803; E1399; G0378; U0003; U0005

== ENCOUNTER 2021-08-09 16:51 | Emergency (ER) | payer OTHER ==
[2021-08-09] MEDS ORDERED: NALOXONE HCL 0.4 MG/ML VIAL IVPUSH ONE ×2 (17:36→20:12)
[2021-08-09] MEDS ORDERED: SODIUM CHLORIDE 0.9% 500 ML INFUS.BAG IV ONE (17:47)
[2021-08-09 18:02] VITALS: BMI 80.4
[2021-08-09 18:41] LABS: PH,URINE 5.5 (5.0-8.0); URINE APPEARANCE CLEAR; URINE BILIRUBIN NEGATIVE (NEGATIVE); URINE COLOR YELLOW; URINE GLUCOSE (UA) NEGATIVE (NEGATIVE); URINE KETONE NEGATIVE (NEGATIVE); URINE LEUK ESTERASE NEGATIVE (NEGATIVE); URINE NITRITE NEGATIVE (NEGATIVE); URINE PROTEIN NEGATIVE (NEGATIVE); URINE UROBILINOGEN 0.2 mg/dL (0.2-1.0)
[2021-08-09] MEDS ORDERED: NALOXONE HCL 0.4 MG/ML VIAL ONE ×2 (18:48→20:14)
[2021-08-09 18:55] LABS: ARTERIAL BLD GAS O2 SATURATION 76.1 % (95-98); ARTERIAL BLOOD GAS BASE EXCESS -1.6 mmol/L (-2-2); ARTERIAL BLOOD GAS PO2 48.3 mmHg (80-100); ARTERIAL BLOOD GAS pH 7.242 (7.350-7.450)
[2021-08-09 19:02] LABS: METHADONE, UR NEGATIVE (NEGATIVE); PHENCYCLIDINE,URINE NEGATIVE (NEGATIVE); URINE BENZODIAZEPINES NEGATIVE (NEGATIVE)
[2021-08-09 19:03] LABS: COCAINE, UR NEGATIVE (NEGATIVE); OPIATES, URI NEGATIVE (NEGATIVE); URINE AMPHETAMINES NEGATIVE (NEGATIVE); URINE BARBITURATES NEGATIVE (NEGATIVE)
[2021-08-09 19:35] LABS: BASO % 0.6 % (0-2.0); EOS % 1.9 % (0-4.5); HEMATOCRIT 40.2 % (32.4-45.2); HEMOGLOBIN 13.1 GM/dL (10.7-15.3); LYMPH % 34.9 % (8-40); MCH 31.3 pg (25.7-33.7); MCHC 32.5 g/dl (32.0-36.0); MEAN CELL VOLUME 96.3 fl (80-96); MEAN PLT VOLUME 8.5 fl (7.5-11.1); MONO % 6.3 % (3.8-10.2); NEUT % 56.3 % (42.8-82.8); PLATELET COUNT 363 10^3/uL (134-434); RBC 4.17 M/mm3 (3.60-5.2); RDW 15.7 % (11.6-15.6); VENOUS BASE EXCESS -0.4 mmol/L (-2-2); VENOUS O2 SATURATION 92.3 % (70-80); VENOUS PCO2 58.8 mmHg (38-52); VENOUS PH 7.27 (7.310-7.410); WHITE BLOOD COUNT 6.5 K/mm3 (4.0-10.0)
[2021-08-09 19:52] LABS: CHLORIDE 107 mmol/L (98-107); SODIUM 142 mmol/L (136-145)
[2021-08-09 19:54] LABS: ANION GAP 7 MMOL/L (8-16); CALCIUM 8.9 mg/dL (8.5-10.1); CO2 28 mmol/L (21-32); GLUCOSE,RANDOM 100 mg/dL (74-106); MAGNESIUM 1.9 mg/dL (1.8-2.4)
[2021-08-09 19:55] LABS: ALBUMIN 3.1 g/dl (3.4-5.0)
[2021-08-09 19:57] LABS: CREATININE 0.6 mg/dL (0.55-1.3); PHOSPHOROUS 3.9 mg/dL (2.5-4.9); SGPT/ALT 19 U/L (13-61)
[2021-08-09 19:58] LABS: SGOT/AST 22 U/L (15-37)
[2021-08-09 19:59] LABS: BILIRUBIN,TOTAL 0.3 mg/dL (0.2-1); TOT PROT 7.1 g/dl (6.4-8.2)
[2021-08-09 20:00] LABS: ALK PHOS 88 U/L (45-117)
[2021-08-09] MEDS ORDERED: RAPID SEQUENCE INTUBATION KIT NR ONE ×2 (20:23→20:24)
[2021-08-09] MEDS ORDERED: ETOMIDATE 20 MG/10 ML AMPUL IVPUSH ONE (20:45)
[2021-08-09] MEDS ORDERED: MIDAZOLAM IN 0.9 % SOD.CHLORID 100 MG/100 ML PLAST..BAG IVPB SCH (21:00)
[2021-08-09] MEDS ORDERED: FENTANYL IVPB 500 MCG/100 ML BAG IVPB SCH ×2 (21:00→21:10)
[2021-08-09] MEDS ORDERED: ROCURONIUM BROMIDE 50 MG/5 ML VIAL IV ONE (21:01)
[2021-08-09] MEDS ORDERED: MIDAZOLAM IN 0.9 % SOD.CHLORID 1 MG/1 ML PLAST..BAG ONE (21:04)
[2021-08-09 21:48] LABS: ARTERIAL BLD GAS O2 SATURATION 94.8 % (95-98); ARTERIAL BLOOD GAS BASE EXCESS -3.2 mmol/L (-2-2); ARTERIAL BLOOD GAS PO2 77.5 mmHg (80-100); ARTERIAL BLOOD GAS pH 7.345 (7.350-7.450)
[2021-08-09 21:50] LABS: ALLENS TEST POSITIVE
[2021-08-09 21:51] LABS: VENT MODE A/C; VENT RATE 24
[2021-08-09] MEDS ORDERED: FENTANYL NS IVPB 500 MCG/100 ML BAG IVPB ONE (22:20)
[2021-08-10 01:25] VITALS: TEMP 97.1
[2021-08-10 02:07] VITALS: BP 117/75; PULSE 63
== END 2021-08-10 02:36 | disposition short-term general hospital (02) ==
LOC: JER 16:51
PROC: 3E033GC Introduction of Other Therapeutic Substance into Peripheral Vein, Percutaneous Approach (ICD-10-PCS; principal; 2021-08-09)
PROC: 3E033GC Introduction of Other Therapeutic Substance into Peripheral Vein, Percutaneous Approach (ICD-10-PCS; 2021-08-09)
PROC: 3E033NZ Introduction of Analgesics, Hypnotics, Sedatives into Peripheral Vein, Percutaneous Approach (ICD-10-PCS; 2021-08-09)
PROC: 3E033NZ Introduction of Analgesics, Hypnotics, Sedatives into Peripheral Vein, Percutaneous Approach (ICD-10-PCS; 2021-08-09)
DX: J96.01 Acute respiratory failure with hypoxia (principal); R53.83 Other fatigue; R41.82 Altered mental status, unspecified
CPT/HCPCS: 36415; 36600; 71045-TC-FY; 80053; 80307; 81003; 82140; 82272; 82803; 82962; 83605; 83735; 83880; 84100; 84439; 84443; 84484; 85025; 86922; 87040; 87086; 93005; 93010; 99291; C9803-CS; U0003; U0005

== ENCOUNTER 2021-10-25 13:52 | Inpatient (IN) | payer OTHER ==
[2021-10-25 15:41] VITALS: BMI 70.9
[2021-10-25] MEDS ORDERED: FUROSEMIDE 40 MG/4 ML INJECTABLE VIAL IVPUSH ONE ×2 (17:03→21:44)
[2021-10-25] MEDS ORDERED: FUROSEMIDE 40 MG/4 ML INJECTABLE VIAL ONE ×2 (17:32→22:51)
[2021-10-25] MEDS ORDERED: ALBUTEROL SO4 2.5/IPRATROPIUM 0.5 INH SOL 3 ML VIAL.NEB. NEB ONE ×2 (17:37→17:48)
[2021-10-25 17:39] LABS: BASO % 1.1 % (0-2.0); EOS % 3.4 % (0-4.5); HEMOGLOBIN 13.4 GM/dL (10.7-15.3); LYMPH % 32.6 % (8-40); MCH 31.9 pg (25.7-33.7); MCHC 32.6 g/dl (32.0-36.0); MEAN CELL VOLUME 97.9 fl (80-96); MEAN PLT VOLUME 7.9 fl (7.5-11.1); MONO % 6.1 % (3.8-10.2); NEUT % 56.8 % (42.8-82.8); PLATELET COUNT 422 10^3/uL (134-434); RBC 4.19 M/mm3 (3.60-5.2); RDW 17.6 % (11.6-15.6); WHITE BLOOD COUNT 8.2 K/mm3 (4.0-10.0)
[2021-10-25 18:06] LABS: ALBUMIN 3.5 g/dl (3.4-5.0)
[2021-10-25 18:08] LABS: BLOOD UREA NITROGEN 12.8 mg/dL (7-18)
[2021-10-25 18:10] LABS: CREATININE 0.5 mg/dL (0.55-1.3)
[2021-10-25 18:12] LABS: BILIRUBIN,TOTAL 0.4 mg/dL (0.2-1); TOT PROT 7.5 g/dl (6.4-8.2)
[2021-10-25 18:15] LABS: N-TERMINAL BNP 522.3 pg/ml (5-125)
[2021-10-25] MEDS ORDERED: ACETAMINOPHEN 1000 MG/100 ML BAG IVPB ONE (20:12)
[2021-10-25] MEDS ORDERED: ACETAMINOPHEN INJECTION 100 ML IVPB ONE (20:26)
[2021-10-25 22:27] LABS: URINE APPEARANCE CLEAR; URINE BILIRUBIN NEGATIVE (NEGATIVE); URINE COLOR YELLOW; URINE GLUCOSE (UA) NEGATIVE (NEGATIVE); URINE KETONE NEGATIVE (NEGATIVE); URINE LEUK ESTERASE NEGATIVE (NEGATIVE); URINE NITRITE NEGATIVE (NEGATIVE); URINE PROTEIN NEGATIVE (NEGATIVE); URINE UROBILINOGEN 0.2 mg/dL (0.2-1.0)
[2021-10-25] MEDS: ENOXAPARIN NA (PORCINE) 40 MG/0.4 ML DISP.SYRIN SQ SCH (23:15)
[2021-10-25] MEDS ORDERED: ALBUTEROL SO4 HFA INHALER IH PRN (23:32)
[2021-10-25] MEDS: BUDESONIDE/FORMETEROL FUMARATE 160/4.5 mcg INHALER IH SCH (23:45)
[2021-10-26] MEDS ORDERED: ACETAMINOPHEN 1000 MG/100 ML BAG IVPB PRN (04:49)
[2021-10-26] MEDS ORDERED: ENOXAPARIN NA (PORCINE) 40 MG/0.4 ML DISP.SYRIN SQ ONE ×2 (06:31→09:38)
[2021-10-26] MEDS ORDERED: GABAPENTIN 400 MG CAPSULE ONE ×2 (07:25→14:40)
[2021-10-26] MEDS: GABAPENTIN 400 MG CAPSULE PO SCH ×3 (07:41→23:55)
[2021-10-26] MEDS: INSULIN SLIDING SCALE (NOVOLOG) 1 VIAL SQ SCH ×4 (07:41→23:56)
[2021-10-26 07:56] LABS: BASO % 0.9 % (0-2.0); EOS % 3.4 % (0-4.5); HEMATOCRIT 38.8 % (32.4-45.2); HEMOGLOBIN 12.8 GM/dL (10.7-15.3); LYMPH % 30.5 % (8-40); MCH 31.8 pg (25.7-33.7); MCHC 33.1 g/dl (32.0-36.0); MEAN CELL VOLUME 96.2 fl (80-96); MEAN PLT VOLUME 7.4 fl (7.5-11.1); MONO % 7.7 % (3.8-10.2); NEUT % 57.5 % (42.8-82.8); PLATELET COUNT 382 10^3/uL (134-434); RBC 4.03 M/mm3 (3.60-5.2); WHITE BLOOD COUNT 6.2 K/mm3 (4.0-10.0)
[2021-10-26 08:17] LABS: ALBUMIN 3.2 g/dl (3.4-5.0); PHOSPHOROUS 4.6 mg/dL (2.5-4.9)
[2021-10-26 08:18] LABS: BILIRUBIN,TOTAL 0.4 mg/dL (0.2-1); BLOOD UREA NITROGEN 11.5 mg/dL (7-18); TOT PROT 6.7 g/dl (6.4-8.2)
[2021-10-26 08:20] LABS: CREATININE 0.5 mg/dL (0.55-1.3); MAGNESIUM 1.7 mg/dL (1.8-2.4)
[2021-10-26] MEDS ORDERED: PANTOPRAZOLE 20 MG TABLET PO ONE (09:37)
[2021-10-26] MEDS ORDERED: LORATADINE 10 MG TABLET ONE (09:38)
[2021-10-26] MEDS ORDERED: NICOTINE 14 MG/24 HOURS TOPICAL PATCH TD ONE (09:38)
[2021-10-26] MEDS ORDERED: ARIPiprazole 5 MG TABLET ONE (09:38)
[2021-10-26] MEDS ORDERED: FUROSEMIDE 40 MG/4 ML INJECTABLE VIAL ONE (09:39)
[2021-10-26] MEDS: ENOXAPARIN NA (PORCINE) 40 MG/0.4 ML DISP.SYRIN SQ SCH ×2 (09:50→23:55)
[2021-10-26] MEDS: ARIPiprazole 5 MG TABLET PO SCH (09:50)
[2021-10-26] MEDS: FUROSEMIDE 40 MG/4 ML INJECTABLE VIAL IVPUSH SCH (09:50)
[2021-10-26] MEDS: PANTOPRAZOLE 20 MG TABLET PO SCH (09:50)
[2021-10-26] MEDS: BUDESONIDE/FORMETEROL FUMARATE 160/4.5 mcg INHALER IH SCH ×2 (09:50→23:56)
[2021-10-26] MEDS: VITAMIN B COMPLEX W/C COMBO TABLET (FP) PO SCH (09:50)
[2021-10-26] MEDS: LORATADINE 10 MG TABLET PO SCH (09:50)
[2021-10-26] MEDS ORDERED: NICOTINE 14 MG/24 HOURS TOPICAL PATCH TD SCH (10:00)
[2021-10-26] MEDS ORDERED: BACLOFEN 10 MG TABLET (FP) ONE (14:40)
[2021-10-26] MEDS: BACLOFEN 10 MG TABLET (FP) PO SCH ×2 (14:52→23:54)
[2021-10-26] MEDS ORDERED: MAGNESIUM SULF 50% (8.12 MEQ/2 ML-1 GM VIAL) IVPB ONE (17:00)
[2021-10-26] MEDS ORDERED: MAGNESIUM 1GM/D5W - 1 GM/100 ML IVPB IVPB ONE (17:12)
[2021-10-26] MEDS: MONTELUKAST NA 10 MG TABLET PO SCH (23:56)
[2021-10-27] MEDS: GABAPENTIN 400 MG CAPSULE PO SCH ×3 (06:39→22:37)
[2021-10-27] MEDS: BACLOFEN 10 MG TABLET (FP) PO SCH ×3 (06:39→22:37)
[2021-10-27] MEDS: INSULIN SLIDING SCALE (NOVOLOG) 1 VIAL SQ SCH ×4 (06:52→22:40)
[2021-10-27 08:30] LABS: HEMOGLOBIN 12.5 GM/dL (10.7-15.3); MCH 31.8 pg (25.7-33.7); MCHC 32.8 g/dl (32.0-36.0); MEAN CELL VOLUME 96.9 fl (80-96); MEAN PLT VOLUME 7.8 fl (7.5-11.1); PLATELET COUNT 370 10^3/uL (134-434); RBC 3.93 M/mm3 (3.60-5.2); RDW 16.8 % (11.6-15.6); WHITE BLOOD COUNT 5.7 K/mm3 (4.0-10.0)
[2021-10-27 08:47] LABS: CALCIUM 8.9 mg/dL (8.5-10.1)
[2021-10-27 08:48] LABS: BLOOD UREA NITROGEN 9.8 mg/dL (7-18); MAGNESIUM 1.7 mg/dL (1.8-2.4)
[2021-10-27] MEDS: ALBUTEROL SO4 0.083% IH SOL 2.5 MG/3 ML VIAL.NEB. NEB PRN (08:50)
[2021-10-27 08:51] LABS: CREATININE 0.4 mg/dL (0.55-1.3); PHOSPHOROUS 3.7 mg/dL (2.5-4.9)
[2021-10-27] MEDS ORDERED: PNEUMOC 20-VAL CONJ-DIP CRM/PF 0.5 ML SYRINGE IM ONE (10:00)
[2021-10-27] MEDS: FERROUS SO4 325 MG TABLET (FP) PO SCH (10:12)
[2021-10-27] MEDS: LORATADINE 10 MG TABLET PO SCH (10:12)
[2021-10-27] MEDS: VITAMIN B COMPLEX W/C COMBO TABLET (FP) PO SCH (10:12)
[2021-10-27] MEDS: CHOLECALCIFEROL (VIT D3) 1,000 UNIT (25 MCG) TABLET PO SCH (10:12)
[2021-10-27] MEDS: PANTOPRAZOLE 20 MG TABLET PO SCH (10:12)
[2021-10-27] MEDS: ENOXAPARIN NA (PORCINE) 40 MG/0.4 ML DISP.SYRIN SQ SCH ×2 (10:12→22:37)
[2021-10-27] MEDS: FUROSEMIDE 40 MG/4 ML INJECTABLE VIAL IVPUSH SCH (10:12)
[2021-10-27] MEDS: CALCIUM 500MG/VIT-D 200 UNITS COMBO TABLET (FP) PO SCH (10:12)
[2021-10-27] MEDS ORDERED: PNEUMOCOCCAL 23 VACCINE 0.5 ML VIAL IM ONE (11:00)
[2021-10-27] MEDS ORDERED: MAGNESIUM 1GM/D5W 100ML - 100 ML IVPB IVPB ONE (11:30)
[2021-10-27] MEDS: BUDESONIDE/FORMETEROL FUMARATE 160/4.5 mcg INHALER IH SCH ×2 (11:41→22:39)
[2021-10-27] MEDS: ARIPiprazole 5 MG TABLET PO SCH (11:42)
[2021-10-27 14:21] LABS: ARTERIAL BLOOD GAS BASE EXCESS 11.5 mmol/L (-2-2); ARTERIAL BLOOD GAS PO2 47.3 mmHg (80-100); ARTERIAL BLOOD GAS pH 7.426 (7.350-7.450)
[2021-10-27 14:29] LABS: ALLENS TEST POSITIVE
[2021-10-27] MEDS ORDERED: MAGNESIUM SULF 50% (8.12 MEQ/2 ML-1 GM VIAL) IVPB ONE (16:01)
[2021-10-27] MEDS: MONTELUKAST NA 10 MG TABLET PO SCH (22:37)
[2021-10-28] MEDS: BACLOFEN 10 MG TABLET (FP) PO SCH ×3 (07:00→23:17)
[2021-10-28] MEDS: GABAPENTIN 400 MG CAPSULE PO SCH ×3 (07:00→23:18)
[2021-10-28] MEDS: INSULIN SLIDING SCALE (NOVOLOG) 1 VIAL SQ SCH ×4 (07:00→23:29)
[2021-10-28 09:26] LABS: HEMATOCRIT 41.4 % (32.4-45.2); HEMOGLOBIN 13.6 GM/dL (10.7-15.3); MCHC 32.8 g/dl (32.0-36.0); MEAN CELL VOLUME 97.6 fl (80-96); MEAN PLT VOLUME 7.8 fl (7.5-11.1); PLATELET COUNT 378 10^3/uL (134-434); RBC 4.25 M/mm3 (3.60-5.2); RDW 17.2 % (11.6-15.6); WHITE BLOOD COUNT 5.5 K/mm3 (4.0-10.0)
[2021-10-28] MEDS: MULTIVITAMINS (DAILY MVI) TABLET (FP) PO SCH (09:50)
[2021-10-28] MEDS: ENOXAPARIN NA (PORCINE) 40 MG/0.4 ML DISP.SYRIN SQ SCH ×2 (09:50→23:18)
[2021-10-28] MEDS: AMINO ACIDS/PROTEIN HYDROLYS 30 ML LIQUID.PKT PO SCH (09:50)
[2021-10-28] MEDS: CHOLECALCIFEROL (VIT D3) 1,000 UNIT (25 MCG) TABLET PO SCH (09:50)
[2021-10-28] MEDS: CALCIUM 500MG/VIT-D 200 UNITS COMBO TABLET (FP) PO SCH (09:51)
[2021-10-28] MEDS: BUDESONIDE/FORMETEROL FUMARATE 160/4.5 mcg INHALER IH SCH ×2 (09:51→23:28)
[2021-10-28] MEDS: LORATADINE 10 MG TABLET PO SCH (09:51)
[2021-10-28] MEDS: VITAMIN B COMPLEX W/C COMBO TABLET (FP) PO SCH (09:51)
[2021-10-28] MEDS: FERROUS SO4 325 MG TABLET (FP) PO SCH (09:51)
[2021-10-28] MEDS: ARIPiprazole 5 MG TABLET PO SCH (09:51)
[2021-10-28] MEDS: PANTOPRAZOLE 20 MG TABLET PO SCH (09:51)
[2021-10-28] MEDS: ASCORBIC ACID 500 MG TABLET (FP) PO SCH (09:51)
[2021-10-28 10:27] LABS: MAGNESIUM 1.8 mg/dL (1.8-2.4)
[2021-10-28 10:29] LABS: CREATININE 0.5 mg/dL (0.55-1.3); PHOSPHOROUS 3.3 mg/dL (2.5-4.9)
[2021-10-28] MEDS: FUROSEMIDE 40 MG/4 ML INJECTABLE VIAL IVPUSH SCH ×2 (12:26→13:18)
[2021-10-28] MEDS: ALBUTEROL SO4 0.083% IH SOL 2.5 MG/3 ML VIAL.NEB. NEB PRN (14:20)
[2021-10-28] MEDS ORDERED: FUROSEMIDE 40 MG/4 ML INJECTABLE VIAL IVPUSH ONE (16:14)
[2021-10-28] MEDS: ACETAMINOPHEN 325 MG TABLET (FP) PO PRN ×2 (16:32→23:18)
[2021-10-28] MEDS: MONTELUKAST NA 10 MG TABLET PO SCH (23:17)
[2021-10-29] MEDS: BACLOFEN 10 MG TABLET (FP) PO SCH ×3 (07:12→22:25)
[2021-10-29] MEDS: GABAPENTIN 400 MG CAPSULE PO SCH ×3 (07:15→22:25)
[2021-10-29] MEDS: INSULIN SLIDING SCALE (NOVOLOG) 1 VIAL SQ SCH ×4 (07:18→22:28)
[2021-10-29 08:53] LABS: HEMATOCRIT 41.2 % (32.4-45.2); HEMOGLOBIN 13.3 GM/dL (10.7-15.3); MCH 31.6 pg (25.7-33.7); MCHC 32.4 g/dl (32.0-36.0); MEAN CELL VOLUME 97.6 fl (80-96); MEAN PLT VOLUME 7.8 fl (7.5-11.1); PLATELET COUNT 382 10^3/uL (134-434); RBC 4.22 M/mm3 (3.60-5.2); RDW 16.7 % (11.6-15.6); WHITE BLOOD COUNT 5.6 K/mm3 (4.0-10.0)
[2021-10-29 09:45] LABS: BLOOD UREA NITROGEN 10.6 mg/dL (7-18); CALCIUM 9.4 mg/dL (8.5-10.1); MAGNESIUM 1.8 mg/dL (1.8-2.4)
[2021-10-29 09:48] LABS: CREATININE 0.5 mg/dL (0.55-1.3); PHOSPHOROUS 3.6 mg/dL (2.5-4.9)
[2021-10-29] MEDS: ASCORBIC ACID 500 MG TABLET (FP) PO SCH (09:49)
[2021-10-29] MEDS: CALCIUM 500MG/VIT-D 200 UNITS COMBO TABLET (FP) PO SCH (09:49)
[2021-10-29] MEDS: LORATADINE 10 MG TABLET PO SCH (09:49)
[2021-10-29] MEDS: AMINO ACIDS/PROTEIN HYDROLYS 30 ML LIQUID.PKT PO SCH (09:49)
[2021-10-29] MEDS: PANTOPRAZOLE 20 MG TABLET PO SCH (09:49)
[2021-10-29] MEDS: FERROUS SO4 325 MG TABLET (FP) PO SCH (09:49)
[2021-10-29] MEDS: ARIPiprazole 5 MG TABLET PO SCH (09:49)
[2021-10-29] MEDS: ENOXAPARIN NA (PORCINE) 40 MG/0.4 ML DISP.SYRIN SQ SCH ×2 (09:49→22:26)
[2021-10-29] MEDS: CHOLECALCIFEROL (VIT D3) 1,000 UNIT (25 MCG) TABLET PO SCH (09:49)
[2021-10-29] MEDS: ACETAMINOPHEN 325 MG TABLET (FP) PO PRN ×2 (09:51→22:26)
[2021-10-29] MEDS: BUDESONIDE/FORMETEROL FUMARATE 160/4.5 mcg INHALER IH SCH ×2 (10:02→22:35)
[2021-10-29] MEDS: MULTIVITAMINS (DAILY MVI) TABLET (FP) PO SCH (10:02)
[2021-10-29] MEDS: VITAMIN B COMPLEX W/C COMBO TABLET (FP) PO SCH (10:04)
[2021-10-29] MEDS: FUROSEMIDE 40 MG/4 ML INJECTABLE VIAL IVPUSH SCH (14:07)
[2021-10-29] MEDS: MONTELUKAST NA 10 MG TABLET PO SCH (22:26)
[2021-10-30] MEDS: BACLOFEN 10 MG TABLET (FP) PO SCH ×3 (06:48→23:12)
[2021-10-30] MEDS: INSULIN SLIDING SCALE (NOVOLOG) 1 VIAL SQ SCH ×4 (06:48→23:12)
[2021-10-30] MEDS: GABAPENTIN 400 MG CAPSULE PO SCH ×3 (06:48→23:12)
[2021-10-30 09:01] LABS: HEMATOCRIT 39.5 % (32.4-45.2); HEMOGLOBIN 12.9 GM/dL (10.7-15.3); MCH 31.5 pg (25.7-33.7); MCHC 32.6 g/dl (32.0-36.0); MEAN CELL VOLUME 96.6 fl (80-96); MEAN PLT VOLUME 8.1 fl (7.5-11.1); PLATELET COUNT 372 10^3/uL (134-434); RBC 4.09 M/mm3 (3.60-5.2); RDW 16.8 % (11.6-15.6); WHITE BLOOD COUNT 5.8 K/mm3 (4.0-10.0)
[2021-10-30 09:32] LABS: BLOOD UREA NITROGEN 12.7 mg/dL (7-18)
[2021-10-30 09:35] LABS: CREATININE 0.4 mg/dL (0.55-1.3); PHOSPHOROUS 3.5 mg/dL (2.5-4.9)
[2021-10-30] MEDS: ASCORBIC ACID 500 MG TABLET (FP) PO SCH (10:43)
[2021-10-30] MEDS: LORATADINE 10 MG TABLET PO SCH (10:43)
[2021-10-30] MEDS: CALCIUM 500MG/VIT-D 200 UNITS COMBO TABLET (FP) PO SCH (10:43)
[2021-10-30] MEDS: PANTOPRAZOLE 20 MG TABLET PO SCH (10:43)
[2021-10-30] MEDS: MULTIVITAMINS (DAILY MVI) TABLET (FP) PO SCH (10:43)
[2021-10-30] MEDS: CHOLECALCIFEROL (VIT D3) 1,000 UNIT (25 MCG) TABLET PO SCH (10:43)
[2021-10-30] MEDS: ARIPiprazole 5 MG TABLET PO SCH (10:44)
[2021-10-30] MEDS: FERROUS SO4 325 MG TABLET (FP) PO SCH (10:44)
[2021-10-30] MEDS: AMINO ACIDS/PROTEIN HYDROLYS 30 ML LIQUID.PKT PO SCH (10:44)
[2021-10-30] MEDS: ENOXAPARIN NA (PORCINE) 40 MG/0.4 ML DISP.SYRIN SQ SCH ×2 (10:45→23:13)
[2021-10-30] MEDS: BUDESONIDE/FORMETEROL FUMARATE 160/4.5 mcg INHALER IH SCH ×2 (10:45→23:11)
[2021-10-30] MEDS: VITAMIN B COMPLEX W/C COMBO TABLET (FP) PO SCH (10:52)
[2021-10-30] MEDS: ACETAMINOPHEN 325 MG TABLET (FP) PO PRN (12:55)
[2021-10-30] MEDS ORDERED: FUROSEMIDE 40 MG TABLET (FP) PO ONE (22:46)
[2021-10-30] MEDS: MONTELUKAST NA 10 MG TABLET PO SCH (23:12)
[2021-10-30] MEDS: FUROSEMIDE 40 MG/4 ML INJECTABLE VIAL IVPUSH SCH (23:14)
[2021-10-31] MEDS: ACETAMINOPHEN 325 MG TABLET (FP) PO PRN (02:26)
[2021-10-31] MEDS: BACLOFEN 10 MG TABLET (FP) PO SCH ×2 (06:28→13:36)
[2021-10-31] MEDS: GABAPENTIN 400 MG CAPSULE PO SCH ×2 (06:28→13:36)
[2021-10-31] MEDS: INSULIN SLIDING SCALE (NOVOLOG) 1 VIAL SQ SCH ×3 (06:29→16:50)
[2021-10-31] MEDS: FUROSEMIDE 40 MG/4 ML INJECTABLE VIAL IVPUSH SCH ×2 (07:25→10:16)
[2021-10-31 08:29] LABS: BASO % 1.1 % (0-2.0); EOS % 4.2 % (0-4.5); HEMATOCRIT 39.4 % (32.4-45.2); LYMPH % 31.7 % (8-40); MCH 31.4 pg (25.7-33.7); MEAN CELL VOLUME 95.2 fl (80-96); MEAN PLT VOLUME 7.8 fl (7.5-11.1); MONO % 9.8 % (3.8-10.2); NEUT % 53.2 % (42.8-82.8); PLATELET COUNT 381 10^3/uL (134-434); RBC 4.14 M/mm3 (3.60-5.2); RDW 16.9 % (11.6-15.6); WHITE BLOOD COUNT 6.5 K/mm3 (4.0-10.0)
[2021-10-31 08:46] LABS: CALCIUM 9.1 mg/dL (8.5-10.1)
[2021-10-31 08:47] LABS: ALBUMIN 3.2 g/dl (3.4-5.0); BLOOD UREA NITROGEN 14.6 mg/dL (7-18); MAGNESIUM 1.9 mg/dL (1.8-2.4)
[2021-10-31 08:50] LABS: CREATININE 0.6 mg/dL (0.55-1.3); PHOSPHOROUS 3.5 mg/dL (2.5-4.9)
[2021-10-31 08:51] LABS: BILIRUBIN,TOTAL 0.3 mg/dL (0.2-1); TOT PROT 7.3 g/dl (6.4-8.2)
[2021-10-31] MEDS: FERROUS SO4 325 MG TABLET (FP) PO SCH (10:14)
[2021-10-31] MEDS: AMINO ACIDS/PROTEIN HYDROLYS 30 ML LIQUID.PKT PO SCH (10:14)
[2021-10-31] MEDS: BUDESONIDE/FORMETEROL FUMARATE 160/4.5 mcg INHALER IH SCH (10:15)
[2021-10-31] MEDS: VITAMIN B COMPLEX W/C COMBO TABLET (FP) PO SCH (10:15)
[2021-10-31] MEDS: CHOLECALCIFEROL (VIT D3) 1,000 UNIT (25 MCG) TABLET PO SCH (10:15)
[2021-10-31] MEDS: PANTOPRAZOLE 20 MG TABLET PO SCH (10:15)
[2021-10-31] MEDS: ASCORBIC ACID 500 MG TABLET (FP) PO SCH (10:15)
[2021-10-31] MEDS: CALCIUM 500MG/VIT-D 200 UNITS COMBO TABLET (FP) PO SCH (10:15)
[2021-10-31] MEDS: LORATADINE 10 MG TABLET PO SCH (10:15)
[2021-10-31] MEDS: MULTIVITAMINS (DAILY MVI) TABLET (FP) PO SCH (10:15)
[2021-10-31] MEDS: ENOXAPARIN NA (PORCINE) 40 MG/0.4 ML DISP.SYRIN SQ SCH (10:15)
[2021-10-31] MEDS: ARIPiprazole 5 MG TABLET PO SCH (10:15)
[2021-10-31] MEDS ORDERED: FUROSEMIDE 40 MG TABLET (FP) PO ONE (10:18)
[2021-10-31 14:30] VITALS: BP 130/80; TEMP 98.1
[2021-10-31 20:31] VITALS: PULSE 75
== END 2021-10-31 20:55 | disposition home health service (06) | DRG 194 ==
LOC: JER 13:52 → JERBED 20:33 → J7W 10-26 20:30
PROVIDERS: ADMIT Internal Medicine; ATTEND Internal Medicine
DX: I11.0 Hypertensive heart disease with heart failure (principal); J96.21 Acute and chronic respiratory failure with hypoxia; L89.152 Pressure ulcer of sacral region, stage 2; J44.1 Chronic obstructive pulmonary disease with (acute) exacerbation; G82.20 Paraplegia, unspecified; Z68.45 Body mass index [BMI] 70 or greater, adult; F20.9 Schizophrenia, unspecified; I50.33 Acute on chronic diastolic (congestive) heart failure; E66.01 Morbid (severe) obesity due to excess calories; G47.30 Sleep apnea, unspecified; F31.9 Bipolar disorder, unspecified; E11.9 Type 2 diabetes mellitus without complications; F17.210 Nicotine dependence, cigarettes, uncomplicated
CPT/HCPCS: 0241U-QW; 36415; 36600; 71045-TC-FY; 80048; 80053; 81003; 82803; 82962; 83735; 83880; 84100; 84484; 85025; 85027; 87086; 90732; 93005; 93010; 93970-TC; 93971-TC; 94640; 94660; 94761; 97116-GP; 97161-GP; 99285-25; G0008; G0009; J0475

== ENCOUNTER 2022-02-25 19:33 | Emergency (ER) | payer OTHER ==
[2022-02-25 20:06] LABS: VENOUS BASE EXCESS -1.6 mmol/L (-2-2); VENOUS O2 SATURATION 92.1 % (70-80); VENOUS PCO2 66.6 mmHg (38-52); VENOUS PH 7.235 (7.310-7.410)
[2022-02-25 20:09] VITALS: BMI 73.1
[2022-02-25 20:18] LABS: BASO % 0.6 % (0-2.0); EOS % 1.1 % (0-4.5); HEMATOCRIT 40.9 % (32.4-45.2); HEMOGLOBIN 13.5 GM/dL (10.7-15.3); LYMPH % 30.5 % (8-40); MCH 32.3 pg (25.7-33.7); MCHC 33.1 g/dl (32.0-36.0); MEAN CELL VOLUME 97.6 fl (80-96); MEAN PLT VOLUME 7.4 fl (7.5-11.1); MONO % 7.3 % (3.8-10.2); NEUT % 60.5 % (42.8-82.8); PLATELET COUNT 397 10^3/uL (134-434); RBC 4.19 M/mm3 (3.60-5.2); RDW 15.9 % (11.6-15.6); WHITE BLOOD COUNT 7.9 K/mm3 (4.0-10.0)
[2022-02-25 20:25] LABS: INR 1.12 (0.83-1.09); PROTHROMBIN TIME (PATIENT) 12.9 SEC (9.7-13.0)
[2022-02-25 20:27] LABS: ACTIVATED PTT 35.4 SECONDS (25.2-36.5)
[2022-02-25 20:39] LABS: CHLORIDE 108 mmol/L (98-107); SODIUM 143 mmol/L (136-145)
[2022-02-25 20:42] LABS: ALBUMIN 3.2 g/dl (3.4-5.0); ANION GAP 5 MMOL/L (8-16); BLOOD UREA NITROGEN 10.7 mg/dL (7-18); CALCIUM 8.8 mg/dL (8.5-10.1); CO2 30 mmol/L (21-32); EPI CELLS >36 /uL (0-25.1); GLUCOSE,RANDOM 94 mg/dL (74-106); HYALINE CASTS 9 /uL (0-3.1); MAGNESIUM 1.8 mg/dL (1.8-2.4); URINE APPEARANCE CLEAR; URINE BACTERIA 468 /uL (0-1359); URINE BILIRUBIN NEGATIVE (NEGATIVE); URINE COLOR YELLOW; URINE GLUCOSE (UA) NEGATIVE (NEGATIVE); URINE KETONE NEGATIVE (NEGATIVE); URINE LEUK ESTERASE TRACE (NEGATIVE); URINE NITRITE NEGATIVE (NEGATIVE); URINE PROTEIN 1+ (NEGATIVE); URINE RBC 7 /uL (0-23.9); URINE UROBILINOGEN 0.2 mg/dL (0.2-1.0); URINE WBC 37 /uL (0-25.8)
[2022-02-25 20:44] LABS: CREATININE 0.8 mg/dL (0.55-1.3); PHOSPHOROUS 3.8 mg/dL (2.5-4.9); SGOT/AST 9 U/L (15-37); SGPT/ALT 18 U/L (13-61)
[2022-02-25 20:46] LABS: BILIRUBIN,TOTAL 0.2 mg/dL (0.2-1); TOT PROT 7.3 g/dl (6.4-8.2)
[2022-02-25] MEDS ORDERED: SODIUM CHLORIDE 0.9% 500 ML INFUS.BAG IV ONE ×2 (20:46→22:19)
[2022-02-25 20:48] LABS: ALK PHOS 96 U/L (45-117)
[2022-02-25 20:49] LABS: N-TERMINAL BNP 453.2 pg/ml (5-125)
[2022-02-25 21:06] LABS: METHADONE, UR NEGATIVE (NEGATIVE); OPIATES, URI NEGATIVE (NEGATIVE); URINE BARBITURATES NEGATIVE (NEGATIVE); URINE BENZODIAZEPINES NEGATIVE (NEGATIVE)
[2022-02-25 21:08] LABS: PHENCYCLIDINE,URINE NEGATIVE (NEGATIVE); URINE AMPHETAMINES NEGATIVE (NEGATIVE)
[2022-02-25 21:17] LABS: COCAINE, UR NEGATIVE (NEGATIVE)
[2022-02-25 22:13] LABS: VENOUS BASE EXCESS 0.3 mmol/L (-2-2); VENOUS O2 SATURATION 92.5 % (70-80); VENOUS PH 7.201 (7.310-7.410)
[2022-02-25 22:14] LABS: VENOUS PCO2 79.5 mmHg (38-52)
[2022-02-25] MEDS ORDERED: NALOXONE HCL 0.4 MG/ML VIAL IVPUSH ONE (22:17)
[2022-02-25] MEDS ORDERED: HALOPERIDOL LACTATE 5 MG/ML IM ONE ×2 (22:43→22:45)
[2022-02-25 22:48] LABS: ARTERIAL BLD GAS O2 SATURATION 88.4 % (95-98); ARTERIAL BLOOD GAS BASE EXCESS -2.6 mmol/L (-2-2); ARTERIAL BLOOD GAS PO2 63.6 mmHg (80-100); ARTERIAL BLOOD GAS pH 7.254 (7.350-7.450)
[2022-02-25 22:49] LABS: ALLENS TEST POSITIVE
[2022-02-26] MEDS ORDERED: ROCURONIUM BROMIDE 50 MG/5 ML VIAL IV ONE ×2 (00:11→01:00)
[2022-02-26] MEDS ORDERED: ETOMIDATE 40 MG/20 ML VIAL IVPUSH ONE (00:11)
[2022-02-26] MEDS ORDERED: RAPID SEQUENCE INTUBATION KIT NR ONE (00:15)
[2022-02-26] MEDS ORDERED: FENTANYL NS IVPB 500 MCG/100 ML BAG IVPB SCH (00:15)
[2022-02-26] MEDS ORDERED: MIDAZOLAM IN 0.9 % SOD.CHLORID 100 MG/100 ML PLAST..BAG IVPB SCH (00:30)
[2022-02-26] MEDS ORDERED: MIDAZOLAM IN 0.9 % SOD.CHLORID 1 MG/1 ML PLAST..BAG ONE ×2 (00:51→11:14)
[2022-02-26] MEDS ORDERED: SUCCINYLCHOLINE CHLORIDE 200 MG/10 ML VIAL IVPUSH ONE (01:01)
[2022-02-26] MEDS ORDERED: MIDAZOLAM HCL 5 MG/1 ML Single Dose Vial IVPUSH ONE (01:01)
[2022-02-26] MEDS ORDERED: MIDAZOLAM HCL 5 MG/1 ML Single Dose Vial ONE ×2 (01:16→03:25)
[2022-02-26 01:26] LABS: ALLENS TEST POSITIVE; ARTERIAL BLD GAS O2 SATURATION 99.2 % (95-98); ARTERIAL BLOOD GAS BASE EXCESS -1.7 mmol/L (-2-2); ARTERIAL BLOOD GAS PO2 204.5 mmHg (80-100); ARTERIAL BLOOD GAS pH 7.276 (7.350-7.450); VENT MODE A/C; VENT RATE 18
[2022-02-26] MEDS ORDERED: KETAMINE HCL 500 MG/10 ML VIAL ONE ×2 (03:26→05:20)
[2022-02-26] MEDS ORDERED: KETAMINE HCL 200 MG/20 ML VIAL IVPUSH ONE ×2 (03:26→05:19)
[2022-02-26] MEDS ORDERED: AZITHROMYCIN IVPB 500 MG in DEXTROSE 5%-WATER - 250 ML IVPB ONE (05:44)
[2022-02-26] MEDS ORDERED: CEFTRIAXONE 1 GM in DEXTROSE 5%-WATER - 100 ML IVPB ONE (05:44)
[2022-02-26] MEDS ORDERED: CEFTRIAXONE 1 GM/50 ML BAG ONE (06:00)
[2022-02-26] MEDS ORDERED: AZITHROMYCIN IVPB 500 MG/250 ML BAG IVPB ONE (06:00)
[2022-02-26 08:56] VITALS: RESP 18
[2022-02-26] MEDS ORDERED: FENTANYL NS IVPB 500 MCG/100 ML BAG IVPB ONE (11:33)
[2022-02-26 13:18] VITALS: BP 121/68; PULSE 69; TEMP 98.2
== END 2022-02-26 12:00 | disposition short-term general hospital (02) ==
LOC: JER 19:33
PROC: 0BH17EZ Insertion of Endotracheal Airway into Trachea, Via Natural or Artificial Opening (ICD-10-PCS; principal; 2022-02-25)
PROC: 3E023GC Introduction of Other Therapeutic Substance into Muscle, Percutaneous Approach (ICD-10-PCS; 2022-02-25)
PROC: 3E033GC Introduction of Other Therapeutic Substance into Peripheral Vein, Percutaneous Approach (ICD-10-PCS; 2022-02-25)
DX: T40.2X4A Poisoning by other opioids, undetermined, initial encounter (principal); J96.02 Acute respiratory failure with hypercapnia; R40.0 Somnolence
CPT/HCPCS: 0241U-QW; 36415; 36600; 71045-TC-FY; 80053; 80307; 81003; 82803; 82962; 83735; 83880; 84100; 84484; 85025; 85610; 85730; 86850; 86900; 86901; 87077; 87086; 93005; 93010; 99291